=== PATIENT | female | born 1980 | race Hispanic/Latino ===

== ENCOUNTER 2016-09-27 01:13 | Inpatient (IN) | payer OTHER ==
[2016-09-27] MEDS ORDERED: ZOFRAN ONE (02:09)
[2016-09-27] MEDS ORDERED: NACL 0.9% 1000 ML 1,000 ML ONE (02:09)
[2016-09-27 02:14] LABS: Basophils % (Auto) 0.4 % (0.0-1.8); Eosinophils % (Auto) 0.7 % (0.0-4.3); Hematocrit 44.2 % (30.3-42.9); Hemoglobin 14.8 gm/dl (10.1-14.3); Mean Corpuscular HGB Conc 34 % (30-34); Mean Corpuscular Hemoglobin 33 pg (28-32); Mean Corpuscular Volume 99 fl (79-97); Platelet Count 342 K/mm3 (140-440); Red Blood Count 4.46 M/mm3 (3.65-5.03); White Blood Count 8.8 K/mm3 (4.5-11.0)
[2016-09-27 02:23] LABS: BUN/Creatinine Ratio 15.45; Calcium 8.5 mg/dL (8.4-10.2); Potassium 3.8 mmol/L (3.6-5.0)
[2016-09-27] MEDS ORDERED: D50W (25GM) IV PRN (02:44)
[2016-09-27] MEDS ORDERED: NACL 0.9% 1000 ML 1,000 ML IV ONE (02:44)
--- NOTE | 2016-09-27 02:57 | Emergency Department Report ---
ED General Adult HPI - General Chief complaint: Hyperglycemia Stated complaint: N/V,ELEVATED BLOOD SUGAR Time Seen by Provider: 09/27/16 02:17 Source: patient, EMS Mode of arrival: Stretcher Limitations: No Limitations - History of Present Illness Initial comments: 35-year-old female presents to the emergency department via EMS complaining of nausea and vomiting. Patient reports vomiting for the past 2 days. She states her blood sugar has been high. She reports soreness in her abdomen secondary to vomiting. There has been no diarrhea. She denies seeing any blood. There has been no fever. Patient states she has never been formally diagnosed with diabetes. She has never been prescribed any medication for diabetes, although she has been using her recently father's Lantus and NovoLog. There are no other complaints. -: Gradual, days(s) (2) Location: abdomen Radiation: non-radiation Severity scale (0 -10): 3 Quality: aching Consistency: constant Improves with: none Worsens with: none Associated Symptoms: nausea/vomiting Treatments Prior to Arrival: none - Related Data Home Medications Medication Instructions Recorded Confirmed Last Taken Insulin Glargine [Lantus VIAL] 15 units SQ QHS 02/07/16 02/07/16 Unknown NovoLOG Mix 70/30 VIAL 5 units SQ TID 02/07/16 02/07/16 Unknown Allergies Allergy/AdvReac Type Severity Reaction Status Date / Time No Known Allergies Allergy Unverified 02/07/16 08:09 ED Review of Systems ROS: Stated complaint: N/V,ELEVATED BLOOD SUGAR Other details as noted in HPI Comment: All other systems reviewed and negative Gastrointestinal: abdominal pain, nausea, vomiting ED Past Medical Hx - Past Medical History Previous Medical History?: Yes Hx Diabetes: Yes (no formal diagnosis) Additional medical history: Gangrene on finger on left hand - Surgical History Past Surgical History?: Yes Additional Surgical History: Neck surgery - Family History Family history: diabetes - Social History Smoking Status: Former Smoker Substance Use Type: None - Medications Home Medications: Home Medications Medication Instructions Recorded Confirmed Last Taken Type Insulin Glargine [Lantus VIAL] 15 units SQ QHS 02/07/16 02/07/16 Unknown History NovoLOG Mix 70/30 VIAL 5 units SQ TID 02/07/16 02/07/16 Unknown History ED Physical Exam - General Limitations: No Limitations General appearance: alert, in no apparent distress - Head Head exam: Present: atraumatic, normocephalic - Eye Eye exam: Present: normal appearance, PERRL, EOMI - ENT ENT exam: Present: normal exam, normal orophraynx, mucous membranes moist - Neck Neck exam: Present: normal inspection, full ROM. Absent: tenderness - Respiratory Respiratory exam: Present: normal lung sounds bilaterally. Absent: respiratory distress - Cardiovascular Cardiovascular Exam: Present: normal rhythm, tachycardia, normal heart sounds - GI/Abdominal GI/Abdominal exam: Present: soft, tenderness (mild diffuse tenderness to palpation), normal bowel sounds. Absent: distended, guarding, rebound - Extremities Exam Extremities exam: Present: normal inspection, full ROM. Absent: tenderness - Back Exam Back exam: Present: normal inspection, full ROM. Absent: tenderness - Neurological Exam Neurological exam: Present: alert, oriented X3. Absent: motor sensory deficit - Skin Skin exam: Present: warm, dry, intact ED Course Vital Signs 09/27/16 01:32 Temperature 98.8 F Pulse Rate 127 H Respiratory 20 Rate Blood Pressure 108/61 [Right] O2 Sat by Pulse 99 Oximetry ED Medical Decision Making - Lab Data Result diagrams: 09/27/16 01:40 09/27/16 01:40 - EKG Data -: EKG Interpreted by Me EKG shows normal: sinus rhythm, axis, intervals, QRS complexes, ST-T waves Rate: tachycardia - EKG Data When compared to previous EKG there are: previous EKG unavailable Interpretation: normal EKG - Medical Decision Making Lab results reviewed and discussed with the patient. Patient is being given additional IV fluids. Patient is being started on insulin drip. Hospitalist is to admit the patient. - Differential Diagnosis DKA, dehydration, hyperglycemia Critical care attestation.: If time is entered above; I have spent that time in minutes in the direct care of this critically ill patient, excluding procedure time. ED Disposition Clinical Impression: DKA (diabetic ketoacidoses) Qualifiers: Diabetes mellitus type: type 2 Diabetes mellitus complication detail: without coma Qualified Code(s): E13.10 - Other specified diabetes mellitus with ketoacidosis without coma Disposition: OP ADMITTED IP TO THIS HOSP Is pt being admited?: Yes Condition: Stable Instructions: Diabetic Ketoacidosis (ED) Referrals: PRIMARY CARE, [Primary Care Provider] - 3-5 Days Time of Disposition: 02:57
[2016-09-27] MEDS ORDERED: D5W/0.45% NACL/KCL 20 MEQ 20 MEQ/1,000 ML BAG IV SCH (03:00)
[2016-09-27] MEDS ORDERED: MILK OF MAGNESIA PO PRN (03:17)
[2016-09-27] MEDS ORDERED: SODIUM BICARBONATE IV ONE ×6 (03:17→14:00)
[2016-09-27] MEDS ORDERED: TYLENOL PO PRN (03:17)
[2016-09-27] MEDS ORDERED: SODIUM CHLORIDE FLUSH SYRINGE 10 ML IV PRN (03:17)
[2016-09-27] MEDS ORDERED: DULCOLAX PR PRN (03:17)
--- NOTE | 2016-09-27 03:22 | History and Physical Report ---
History of Present Illness Date of examination: 09/27/16 History of present illness: 35-year-old woman with a history of diabetes comes emergency room with complaints of nausea vomiting. She stated that over the last 2 days she has been having difficulty controlling her sugars at home despite taking her insulin. She also complaining of chest pain in the epigastric area which she states feels like 100 pound sedated chest, intermittent in nature lasting for 30 minutes, no radiation, worse when lying down, better when sitting up. She admits to shortness of breath, diaphoresis, no palpitation Patient denies cough, abdominal pain, hematochezia, dysuria, frequency, focal weakness, dysarthria, fever chills, polydipsia polyuria, hot or cold intolerance , easy bruisability, or rash or bleeding from mucosal membrane, rhinorrhea, epistaxis, earache, tinnitus, blurry vision, eye discharge, anxiety, depression. Other review of systems negative PAST SURGICAL HISTORY: None SOCIAL HISTORY:Quit tobacco use, admits to marijuana, no alcohol FAMILY HISTORY: Hypertension Medications and Allergies Allergies Allergy/AdvReac Type Severity Reaction Status Date / Time No Known Allergies Allergy Unverified 02/07/16 08:09 Home Medications Medication Instructions Recorded Confirmed Last Taken Type Insulin Glargine [Lantus VIAL] 15 units SQ QHS 02/07/16 02/07/16 Unknown History NovoLOG Mix 70/30 VIAL 5 units SQ TID 02/07/16 02/07/16 Unknown History Active Meds: Active Medications Dextrose (D50w (25gm)) 0 ml IV PRN PRN PRN Reason: Hypoglycemia Potassium Chloride/Dextrose/Sod Cl (D5w/0.45% Nacl/Kcl 20 Meq) 20 meq in 1,000 mls @ 125 mls/hr IV DIRECT MAUDE Sodium Chloride (Nacl 0.9% 1000 Ml) 1,000 mls @ 999 mls/hr IV BOLUS ONE Stop: 09/27/16 03:44 Insulin Human Regular 100 (units/ Sodium Chloride) 100 mls @ 1 mls/hr IV TITR MAUDE; 1 UNITS/HR PRN Reason: Protocol Sodium Bicarbonate (Sodium Bicarbonate) 100 meq IV ONCE ONE Stop: 09/27/16 03:18 Exam - Physical Exam Narrative exam: Gen. appearance: Patient lying in bed, no apparent distress HEENT: Normocephalic, atraumatic, pupils equally round and reactive to light, extraocular movement intact, and no sclericterus,. No JVD or thyromegaly or nodule,neck supple, no carotid bruit ,mucous membranes dry, no exudate or erythema Heart: S1, S2, regular rate and rhythm Lungs: Clear to auscultation bilaterally, breathing comfortable Abdomen: Positive bowel sounds, nontender, nondistended, no organomegaly Extremity: No edema, cyanosis, clubbing Skin: No rash, nodules, warm, dry Neuro: Oriented 3, cranial nerves II-12 intact, speech is fluent, motor and sensory intact - Constitutional Vitals: Temp Pulse Resp BP Pulse Ox 98.8 F 127 H 20 108/61 99 09/27/16 01:32 09/27/16 01:32 09/27/16 01:32 09/27/16 01:32 09/27/16 01:32 Results - Labs CBC & Chem 7: 09/27/16 01:40 09/28/16 02:54 Labs: Abnormal lab results 09/27/16 09/27/16 09/27/16 Range/Units 01:40 01:40 01:40 Hgb 14.8 H (10.1-14.3) gm/dl Hct 44.2 H (30.3-42.9) % MCV 99 H (79-97) fl MCH 33 H (28-32) pg Lymph % (Auto) 10.6 L (13.4-35.0) % Lymph # 0.9 L (1.2-5.4) K/mm3 Seg Neutrophils % 83.8 H (40.0-70.0) % VBG pH 7.244 L (7.320-7.420) Sodium 129 L (137-145) mmol/L Chloride 91.0 L (98-107) mmol/L Carbon Dioxide 5 L* (22-30) mmol/L Glucose 348 H (65-100) mg/dL Assessment and Plan DKA Severe metabolic acidosis Chest pain, rule out ACS Admit to medicine Start insulin drip, IV fluid Minder serial chemistry, blood sugar Check hemoglobin A1c, cardiac enzymes, lipid profile and obtain a stress test Consult critical care, give bicarbonate now start DVT prophylaxis, IV morphine
[2016-09-27] MEDS: NovoLIN R 100 UNITS in NACL 0.9% 99 ML IV SCH ×12 (03:30→19:00)
[2016-09-27] MEDS ORDERED: NACL 0.9% 1000 ML 1,000 ML IV SCH (04:00)
--- NOTE | 2016-09-27 04:52 | Admit Criteria Form ---
Admission Criteria Documentation: DIABETES Clinical Indications for Admission to Inpatient Care (Place 'X' for any and all applicable criteria): Admission is indicated by presence of ALL (if I & II) or ANY ONE (if III or IV) of the following (1)(2)(3)(4): [X ]I. Diabetes is uncontrolled as indicated by ANY ONE of the following: [ X]a) Diabetic ketoacidosis as indicated by ALL of the following (8): [X ]i) Hyperglycemia (eg, plasma glucose greater than 200 mg /dL (11.1 mmol/L)) [ X]ii) Acidosis (eg, arterial pH less than 7.30, serum bicarbonate level less than 15 mEq/L (mmol/L)) [ X]iii) Moderate ketonuria or ketonemia [ ]b) Hyperglycemic hyperosmolar state as indicated by ALL of the following(9)(10): [ ]i) Neurologic dysfunction (eg, stupor, coma, hemiparesis , seizure)(13) [ ]ii) Plasma glucose greater than 600 mg/dL (33.3 mmol/L) [ ]iii) Serum osmolality greater than 320 mOsm/kg (mmol/kg) [ ]c) Severe signs or symptoms secondary to hyperglycemia indicated by ANY ONE of the following: [ ]i) Altered mental status(10) [ ]ii) Significant hypovolemia or dehydration [ ]iii) Intractable nausea or vomiting [ ]iv) Unexplained fever or severe infection [ ]v) Severe electrolyte abnormality (eg, hypokalemia, hyperkalemia, hypernatremia) [ ]II. Management at other levels of care (Also use Diabetes: Observation Care as appropriate) is not feasible because of ANY ONE of the following: [ ]a) Condition was not adequately corrected with treatment at other levels of care. [ ]b) Treatment at other levels of care is not appropriate because of condition severity (eg, hyperosmolar coma). [ ]III. Contraindications and/or Inappropriate clinical situations for Observational Care in patients with Diabetes, when ANY ONE of the following is required: [ ]a) Patient require specific diagnostic workup or therapeutic intervention 22 [ ]b) Patient with abnormal vital signs or altered mental status 23 [ ]IV. General contraindications and/or Inappropriate clinical situations for Observational Care in patients with Diabetes, when ANY ONE of the following is required: [ ]a) Prediction of prolongation of LOS based on ANY ONE of the following may be considered as a contraindication for observational care 2, 3, 4, 5, 6, 7, 8, 9, 10, 11 [ ]i) Age > 65 yrs. [ ]ii) Patient arriving by ambulance [ ]iii) Patient with high acuity [ ]iv) Patient requiring vital sign monitoring [ ]v) Patient on IV medication [ ]b) Systolic blood pressures 180mmHg 3,12 [ ]c) Patient with altered mental status including delirium and other alteration of consciousness, (3) [ ]d) Patient whose discharge disposition will be to a care home home or rehabilitation home should not be managed in Emergency Department Observation Unit. CMS rule requires 3 days hospital stay before such placement.3,13 [ ]e) Patient with failure to thrive due to broad array of etiologies 3,16,17 [ ]f) Inability to ambulate 3,14 Extended stay beyond goal length of stay may be needed for(3)(20): [ ]a) Treatment of precipitating causes [ ]b) Development of hypoglycemia [ ]c) Complications of treatment [ ]d) Complications of decompensated diabetes (eg, acute gastric dilatation, persistent metabolic or neurologic derangement) [ ]e) Active Comorbidities [ ]f) Older patients( 65 years or older) The original [employer] content created by [employer] has been revised. The portions of the content which have been revised are identified through the use of italic text or in bold,and [facility] has neither reviewed nor approved the modified material. All other unmodified content is copyright [employer]. Please see references footnoted in the original [facility] edition 2016 Admission Criteria Met: Yes
[2016-09-27 05:12] LABS: Bilirubin,Urine Negative (Negative); Blood,Urine SM (Negative); Ketones,Urine Trace mg/dL (Negative)
[2016-09-27 05:13] LABS: Leukocyte Esterase,Urine Negative (Negative); Nitrite,Urine Negative (Negative); Urobilinogen,Urine < 2.0 mg/dL (<2.0)
[2016-09-27 05:14] LABS: Bacteria,Urine 1+ /HPF (Negative); Granular Casts,Urine 5 /LPF
[2016-09-27] MEDS: MORPHINE IV PRN ×3 (05:32→20:25)
[2016-09-27] MEDS: ZOFRAN IV PRN ×3 (05:35→05:38)
[2016-09-27 06:26] LABS: BUN/Creatinine Ratio 16.66; Blood Urea Nitrogen 15 mg/dL (7-17); Calcium 8.2 mg/dL (8.4-10.2); Carbon Dioxide 16 mmol/L (22-30); Chloride 94.5 mmol/L (98-107); Glucose 129 mg/dL (65-100); Phosphorous 1.7 mg/dL (2.5-4.5); Potassium 4.4 mmol/L (3.6-5.0); Sodium 137 mmol/L (137-145)
[2016-09-27 06:28] LABS: Cholesterol 275 mg/dL (50-199); HDL Cholesterol 39 mg/dL (40-59); LDL Cholesterol,Direct TNR mg/dL (50-130); Triglycerides 552 mg/dL (2-149)
[2016-09-27 06:37] LABS: Anion Gap 31 mmol/L
[2016-09-27] MEDS ORDERED: LEXISCAN IV ONE ×2 (07:58→08:07)
--- NOTE | 2016-09-27 08:31 | Event Note ---
Date: 09/20/16 Patient admitted with diabetic ketoacidosis. She was seen and examined. Cont Insulin drip, iv fluids. Anion gap still high-31.
[2016-09-27] MEDS ORDERED: LOVENOX SUB-Q SCH (10:00)
[2016-09-27 10:12] LABS: Anion Gap 31 mmol/L; Blood Urea Nitrogen 12 mg/dL (7-17); Calcium 7.8 mg/dL (8.4-10.2); Carbon Dioxide 13 mmol/L (22-30); Glucose 199 mg/dL (65-100); Potassium 3.5 mmol/L (3.6-5.0); Sodium 136 mmol/L (137-145)
[2016-09-27] MEDS: LOVENOX SUB-Q SCH (10:12)
[2016-09-27 10:18] LABS: Creatine Kinase MB 1.5 ng/mL (0.0-4.0)
[2016-09-27 10:20] LABS: Creatine Kinase 32 units/L (30-135)
[2016-09-27] MEDS: D5/0.45NS 1,000 ML IV SCH ×2 (12:00→18:24)
[2016-09-27 14:21] LABS: Creatine Kinase MB 1.3 ng/mL (0.0-4.0)
[2016-09-27 14:22] LABS: Creatine Kinase 27 units/L (30-135)
[2016-09-27 18:32] LABS: Urine Drugs of Abuse Note Disclamer
[2016-09-27 18:34] LABS: Creatine Kinase MB 1.3 ng/mL (0.0-4.0)
[2016-09-27] MEDS: D5W/0.45% NACL/KCL 20 MEQ 20 MEQ/1,000 ML BAG IV SCH (19:01)
[2016-09-27 22:22] LABS: Creatine Kinase MB 1.3 ng/mL (0.0-4.0)
[2016-09-27 22:34] LABS: BUN/Creatinine Ratio 11.42; Blood Urea Nitrogen 8 mg/dL (7-17); Calcium 7.7 mg/dL (8.4-10.2); Carbon Dioxide 23 mmol/L (22-30); Chloride 96.5 mmol/L (98-107); Glucose 113 mg/dL (65-100); Potassium 3.4 mmol/L (3.6-5.0); Sodium 135 mmol/L (137-145)
[2016-09-27 22:50] LABS: Anion Gap 19 mmol/L
[2016-09-28] MEDS: D5W/0.45% NACL/KCL 20 MEQ 20 MEQ/1,000 ML BAG IV SCH (02:45)
[2016-09-28 04:34] LABS: Anion Gap 21 mmol/L; BUN/Creatinine Ratio 11.66; Blood Urea Nitrogen 7 mg/dL (7-17); Calcium 7.5 mg/dL (8.4-10.2); Carbon Dioxide 19 mmol/L (22-30); Chloride 98.6 mmol/L (98-107); Glucose 163 mg/dL (65-100); Potassium 3.1 mmol/L (3.6-5.0); Sodium 135 mmol/L (137-145)
[2016-09-28] MEDS: NovoLIN R 100 UNITS in NACL 0.9% 99 ML IV SCH ×2 (08:07→09:07)
[2016-09-28 09:17] LABS: Anion Gap 18 mmol/L; Blood Urea Nitrogen 5 mg/dL (7-17); Calcium 7.8 mg/dL (8.4-10.2); Carbon Dioxide 22 mmol/L (22-30); Chloride 101.4 mmol/L (98-107); Glucose 121 mg/dL (65-100); Potassium 3.3 mmol/L (3.6-5.0); Sodium 138 mmol/L (137-145)
[2016-09-28] MEDS ORDERED: NACL 0.9% 1000 ML 1,000 ML with KCL 20 MEQ IV SCH (11:00)
[2016-09-28] MEDS ORDERED: LEXISCAN IV ONE ×2 (11:23→11:36)
--- NOTE | 2016-09-28 13:23 | Consultation ---
History of Present Illness Consult date: 09/28/16 Requesting physician: AUSTIN LAL Reason for consult: other (DKA) History of present illness: PULMONARY/CCM CONSULT NOTE (Full dictation # [id number]) Please see dictated notes for full details Medications and Allergies Allergies Allergy/AdvReac Type Severity Reaction Status Date / Time No Known Allergies Allergy Unverified 02/07/16 08:09 Home Medications Medication Instructions Recorded Confirmed Last Taken Type Insulin Glargine [Lantus VIAL] 15 units SQ QHS 02/07/16 02/07/16 Unknown History NovoLOG Mix 70/30 VIAL 5 units SQ TID 02/07/16 02/07/16 Unknown History Active Meds: Active Medications Acetaminophen (Tylenol) 650 mg PO Q4H PRN PRN Reason: Pain MILD(1-3)/Fever >100.5/SCHUSTER Bisacodyl (Dulcolax) 10 mg CA QDAY PRN PRN Reason: Constipation unrelieved by MOM Dextrose (D50w (25gm)) 0 ml IV PRN PRN PRN Reason: Hypoglycemia Enoxaparin Sodium (Lovenox) 40 mg SUB-Q QDAY@1000 MAUDE Last Admin: 09/27/16 10:12 Dose: 40 mg Insulin Human Regular 100 (units/ Sodium Chloride) 100 mls @ 1 mls/hr IV TITR MAUDE; 1 UNITS/HR PRN Reason: Protocol Last Admin: 09/28/16 09:07 Dose: 1 units/hr, 1 mls/hr Sodium Chloride (Nacl 0.9% 1000 Ml) 1,000 mls @ 150 mls/hr IV DIRECT MAUDE Potassium Chloride 20 meq/ (Sodium Chloride) 1,010 mls @ 75 mls/hr IV DIRECT MAUDE Magnesium Hydroxide (Milk Of Magnesia) 30 ml PO Q4H PRN PRN Reason: Constipation Morphine Sulfate (Morphine) 2 mg IV Q4H PRN PRN Reason: Pain, Moderate (4-6) Last Admin: 09/27/16 20:25 Dose: 2 mg Ondansetron HCl (Zofran) 4 mg IV Q8H PRN PRN Reason: N/V unrelieved by Reglan Last Admin: 09/27/16 05:38 Dose: 4 mg Sodium Chloride (Sodium Chloride Flush Syringe 10 Ml) 10 ml IV PRN PRN PRN Reason: LINE FLUSH Physical Examination Vital signs: Vital Signs Pulse Resp 115 H 16 09/27/16 01:24 09/27/16 01:24 Results - Laboratory Findings CBC and BMP: 09/27/16 01:40 09/28/16 08:25 Abnormal lab findings: Abnormal Labs 09/27/16 09/27/16 09/27/16 03:30 03:38 05:00 Sodium Potassium Chloride Carbon Dioxide BUN Creatinine Glucose POC Glucose 167 H 117 H Hemoglobin A1c Calcium Phosphorus Total Creatine Kinase CK-MB (CK-2) Rel Index Triglycerides Cholesterol HDL Cholesterol U Epithel Cells (Auto) 19.0 H 09/27/16 09/27/16 09/27/16 05:47 05:47 05:47 Sodium Potassium Chloride 94.5 L Carbon Dioxide 16 L D BUN Creatinine Glucose 129 H POC Glucose Hemoglobin A1c Calcium 8.2 L Phosphorus 1.70 L Total Creatine Kinase CK-MB (CK-2) Rel Index Triglycerides 552 H Cholesterol 275 H HDL Cholesterol 39 L U Epithel Cells (Auto) 09/27/16 09/27/16 09/27/16 05:47 05:53 07:52 Sodium Potassium Chloride Carbon Dioxide BUN Creatinine Glucose POC Glucose 115 H 238 H Hemoglobin A1c 12.1 H Calcium Phosphorus Total Creatine Kinase CK-MB (CK-2) Rel Index Triglycerides Cholesterol HDL Cholesterol U Epithel Cells (Auto) 09/27/16 09/27/16 09/27/16 08:48 09:05 09:05 Sodium 136 L Potassium 3.5 L D Chloride 96.0 L Carbon Dioxide 13 L BUN Creatinine Glucose 199 H POC Glucose 216 H Hemoglobin A1c Calcium 7.8 L Phosphorus Total Creatine Kinase CK-MB (CK-2) Rel Index 4.6 H Triglycerides Cholesterol HDL Cholesterol U Epithel Cells (Auto) 09/27/16 09/27/16 09/27/16 10:01 10:59 12:04 Sodium Potassium Chloride Carbon Dioxide BUN Creatinine Glucose POC Glucose 106 H 113 H 143 H Hemoglobin A1c Calcium Phosphorus Total Creatine Kinase CK-MB (CK-2) Rel Index Triglycerides Cholesterol HDL Cholesterol U Epithel Cells (Auto) 09/27/16 09/27/16 09/27/16 13:06 13:22 14:21 Sodium Potassium Chloride Carbon Dioxide BUN Creatinine Glucose POC Glucose 113 H 132 H Hemoglobin A1c Calcium Phosphorus Total Creatine Kinase 27 L CK-MB (CK-2) Rel Index 4.8 H Triglycerides Cholesterol HDL Cholesterol U Epithel Cells (Auto) 09/27/16 09/27/16 09/27/16 15:27 16:40 17:15 Sodium Potassium Chloride Carbon Dioxide BUN Creatinine Glucose POC Glucose 207 H 175 H Hemoglobin A1c Calcium Phosphorus Total Creatine Kinase CK-MB (CK-2) Rel Index 4.1 H Triglycerides Cholesterol HDL Cholesterol U Epithel Cells (Auto) 09/27/16 09/27/16 09/27/16 17:27 19:08 20:02 Sodium Potassium Chloride Carbon Dioxide BUN Creatinine Glucose POC Glucose 116 H 172 H 167 H Hemoglobin A1c Calcium Phosphorus Total Creatine Kinase CK-MB (CK-2) Rel Index Triglycerides Cholesterol HDL Cholesterol U Epithel Cells (Auto) 09/27/16 09/27/16 09/27/16 21:06 21:42 22:00 Sodium 135 L Potassium 3.4 L Chloride 96.5 L Carbon Dioxide BUN Creatinine Glucose 113 H POC Glucose 106 H Hemoglobin A1c Calcium 7.7 L Phosphorus Total Creatine Kinase 28 L CK-MB (CK-2) Rel Index 4.6 H Triglycerides Cholesterol HDL Cholesterol U Epithel Cells (Auto) 09/27/16 09/27/16 09/27/16 22:17 22:48 23:30 Sodium Potassium Chloride Carbon Dioxide BUN Creatinine Glucose POC Glucose 160 H 132 H 157 H Hemoglobin A1c Calcium Phosphorus Total Creatine Kinase CK-MB (CK-2) Rel Index Triglycerides Cholesterol HDL Cholesterol U Epithel Cells (Auto) 09/28/16 09/28/16 09/28/16 02:32 02:54 03:54 Sodium 135 L Potassium 3.1 L Chloride Carbon Dioxide 19 L BUN Creatinine 0.6 L Glucose 163 H POC Glucose 171 H 154 H Hemoglobin A1c Calcium 7.5 L Phosphorus Total Creatine Kinase CK-MB (CK-2) Rel Index Triglycerides Cholesterol HDL Cholesterol U Epithel Cells (Auto) 09/28/16 09/28/16 09/28/16 04:59 05:20 06:47 Sodium Potassium Chloride Carbon Dioxide BUN Creatinine Glucose POC Glucose 122 H 106 H 137 H Hemoglobin A1c Calcium Phosphorus Total Creatine Kinase CK-MB (CK-2) Rel Index Triglycerides Cholesterol HDL Cholesterol U Epithel Cells (Auto) 09/28/16 09/28/16 09/28/16 08:01 08:25 09:03 Sodium Potassium 3.3 L Chloride Carbon Dioxide BUN 5 L Creatinine 0.5 L Glucose 121 H POC Glucose 119 H 122 H Hemoglobin A1c Calcium 7.8 L Phosphorus Total Creatine Kinase CK-MB (CK-2) Rel Index Triglycerides Cholesterol HDL Cholesterol U Epithel Cells (Auto)
[2016-09-28] MEDS: LOVENOX SUB-Q SCH (13:51)
--- NOTE | 2016-09-28 14:05 | Progress Note ---
Assessment and Plan Assessment and plan: DKA. Resolved. Patient will be transitioned to long-acting insulin this morning 15 units /30. We will resume home dose of long-acting insulin-- Lantus 15 units at bedtime. Sliding scale regular insulin and Accu-Cheks Diabetes mellitus type 1. As above. Chest pain. Stress thallium pending. History Interval history: Patient denies any chest pain currently. Hospitalist Physical - Constitutional Vitals: Temp Pulse Resp BP Pulse Ox 98 F 74 15 106/70 99 09/28/16 12:00 09/28/16 13:40 09/28/16 13:40 09/28/16 13:40 09/28/16 13:40 General appearance: Present: no acute distress, well-nourished - EENT Eyes: Present: PERRL, EOM intact ENT: hearing intact, clear oral mucosa, dentition normal - Neck Neck: Present: supple, normal ROM - Respiratory Respiratory effort: normal Respiratory: bilateral: CTA - Cardiovascular Rhythm: regular Heart Sounds: Present: S1 & S2. Absent: gallop, rub - Extremities Extremities: no ischemia, No edema, Full ROM - Abdominal General gastrointestinal: soft, non-tender, non-distended, normal bowel sounds - Integumentary Integumentary: Present: clear, warm, dry - Neurologic Neurologic: CNII-XII intact, moves all extremities Results - Labs CBC & Chem 7: 09/27/16 01:40 09/28/16 08:25 Labs: Laboratory Last Values WBC 8.8 K/mm3 (4.5-11.0) 09/27/16 01:40 RBC 4.46 M/mm3 (3.65-5.03) 09/27/16 01:40 Hgb 14.8 gm/dl (10.1-14.3) H 09/27/16 01:40 Hct 44.2 % (30.3-42.9) H 09/27/16 01:40 MCV 99 fl (79-97) H 09/27/16 01:40 MCH 33 pg (28-32) H 09/27/16 01:40 MCHC 34 % (30-34) 09/27/16 01:40 RDW 14.0 % (13.2-15.2) 09/27/16 01:40 Plt Count 342 K/mm3 (140-440) 09/27/16 01:40 Lymph % (Auto) 10.6 % (13.4-35.0) L 09/27/16 01:40 [place] % (Auto) 4.5 % (0.0-7.3) 09/27/16 01:40 Eos % (Auto) 0.7 % (0.0-4.3) 09/27/16 01:40 Baso % (Auto) 0.4 % (0.0-1.8) 09/27/16 01:40 Lymph # 0.9 K/mm3 (1.2-5.4) L 09/27/16 01:40 Howard # 0.4 K/mm3 (0.0-0.8) 09/27/16 01:40 Eos # 0.1 K/mm3 (0.0-0.4) 09/27/16 01:40 Baso # 0.0 K/mm3 (0.0-0.1) 09/27/16 01:40 Seg Neutrophils % 83.8 % (40.0-70.0) H 09/27/16 01:40 Seg Neutrophils # 7.4 K/mm3 (1.8-7.7) 09/27/16 01:40 VBG pH 7.244 (7.320-7.420) L 09/27/16 01:40 Sodium 138 mmol/L (137-145) 09/28/16 08:25 Potassium 3.3 mmol/L (3.6-5.0) L 09/28/16 08:25 Chloride 101.4 mmol/L (98-107) 09/28/16 08:25 Carbon Dioxide 22 mmol/L (22-30) 09/28/16 08:25 Anion Gap 18 mmol/L 09/28/16 08:25 BUN 5 mg/dL (7-17) L 09/28/16 08:25 Creatinine 0.5 mg/dL (0.7-1.2) L 09/28/16 08:25 Estimated GFR > 60 ml/min 09/28/16 08:25 BUN/Creatinine Ratio 10.00 % 09/28/16 08:25 Glucose 121 mg/dL (65-100) H 09/28/16 08:25 POC Glucose 122 (70-105) H 09/28/16 09:03 Hemoglobin A1c 12.1 % (4-6) H 09/27/16 05:47 Calcium 7.8 mg/dL (8.4-10.2) L 09/28/16 08:25 Phosphorus 1.70 mg/dL (2.5-4.5) L 09/27/16 05:47 Magnesium 2.00 mg/dL (1.7-2.3) 09/27/16 05:47 Total Creatine Kinase 28 units/L (30-135) L 09/27/16 21:42 CK-MB (CK-2) 1.3 ng/mL (0.0-4.0) 09/27/16 21:42 CK-MB (CK-2) Rel Index 4.6 (0-4) H 09/27/16 21:42 Troponin T < 0.010 ng/mL (0.00-0.029) 09/27/16 13:22 Triglycerides 552 mg/dL (2-149) H 09/27/16 05:47 Cholesterol 275 mg/dL (50-199) H 09/27/16 05:47 LDL Cholesterol Direct TNR 09/27/16 05:47 HDL Cholesterol 39 mg/dL (40-59) L 09/27/16 05:47 Cholesterol/HDL Ratio 7.05 % 09/27/16 05:47 HCG, Qual Negative (Negative) 09/27/16 01:40 Urine Color Yellow (Yellow) 09/27/16 03:30 Urine Turbidity Slightly cloudy (Clear) 09/27/16 03:30 Urine pH 5.0 (5.0-7.0) 09/27/16 03:30 Ur Specific [place] 1.022 (1.003-1.030) 09/27/16 03:30 Urine Protein 100 mg/dl mg/dL (Negative) 09/27/16 03:30 Urine Glucose (UA) >500 mg/dL (Negative) 09/27/16 03:30 Urine Ketones Trace mg/dL (Negative) 09/27/16 03:30 Urine Blood Sm (Negative) 09/27/16 03:30 Urine Nitrite Negative (Negative) 09/27/16 03:30 Urine Bilirubin Negative (Negative) 09/27/16 03:30 Urine Urobilinogen < 2.0 mg/dL (<2.0) 09/27/16 03:30 Ur Leukocyte Esterase Negative (Negative) 09/27/16 03:30 Urine WBC (Auto) 3.0 /HPF (0.0-6.0) 09/27/16 03:30 Urine RBC (Auto) 1.0 /HPF (0.0-6.0) 09/27/16 03:30 U Epithel Cells (Auto) 19.0 /HPF (0-13.0) H 09/27/16 03:30 Urine Bacteria (Auto) 1+ /HPF (Negative) 09/27/16 03:30 Granular Casts 5 /LPF 09/27/16 03:30 Urine Opiates Screen Presumptive positive 09/27/16 17:38 Urine Methadone Screen Presumptive negative 09/27/16 17:38 Ur Barbiturates Screen Presumptive negative 09/27/16 17:38 Ur Phencyclidine Scrn Presumptive negative 09/27/16 17:38 Ur Amphetamines Screen Presumptive negative 09/27/16 17:38 U Benzodiazepines Scrn Presumptive negative 09/27/16 17:38 Urine Cocaine Screen Presumptive negative 09/27/16 17:38 U Marijuana (THC) Screen Presumptive positive 09/27/16 17:38 Drugs of Abuse Note Disclamer 09/27/16 17:38
[2016-09-28] MEDS ORDERED: INSULIN ASPART SQ SCH (20:00)
[2016-09-28] MEDS ORDERED: INSULIN ASPART PROTAMINE SQ SCH (20:00)
[2016-09-28] MEDS ORDERED: LEVEMIR SUB-Q SCH (22:00)
[2016-09-28] MEDS ORDERED: NON-FORMULARY (Insulin Glargine 15 UNITS) SQ SCH (22:00)
[2016-09-29] MEDS: MORPHINE IV PRN (00:42)
--- NOTE | 2016-09-29 05:06 | Consultation ---
REQUESTING PHYSICIAN: Dr. Walton. REASON FOR CONSULTATION: Diabetic ketoacidosis, chest pain. COMPLAINT AND HISTORY OF PRESENT ILLNESS: The patient is a 35-year-old female with past medical history significant for a diagnosis of diabetes and she said there was made about a year ago who she is actually on insulin at home. She stated that she has been taking insulin. She takes 5 units of Humalog with each meal and 15 units of Lantus at night. In the preceding couple of days, she noticed increasing her blood sugars and she had tried everything to get them done successfully, came into the Emergency Room because she developed sorting chest pain, felt like it was a heavy weight on her chest. She had some nausea and/or radiation. It was worse when she laid down and improved to sitting up. She denies alcohol abuse. She did have shortness of breath. She was brought in and essentially found to be in DKA, but also with acute chest pain. When I stopped by to see her, she was resting peacefully in bed. She was having meal. Denied any more chest pain. Denied fevers or chills. I believe she had been seen by the Cardiology Department and was due to have a stress test done. She has about less than 10-pack year tobacco smoking history and states she quit smoking since the diagnosis. This really is as much of the history of presentation as I have. PAST MEDICAL HISTORY: Diabetes. She is obese. PAST SURGICAL HISTORY: Denies. MEDICATIONS: She was on at the time I stopped by to see her, according to the medication administration record included the following: Tylenol 650 mg p.o. q. 4 hours p.r.n. mild pain, Lovenox 40 mg subcutaneous daily, p.r.n. milk of magnesia, nonformulary medication 5 units subq t.i.d., morphine 2 mg IV q. 4 hours p.r.n. moderate pain, Zofran 4 mg IV q. 8 hours p.r.n. nausea and vomiting. ALLERGIES: No known drug allergies. DIET: Obese lady. Denies acute weight loss or gain preceding few weeks to months. FAMILY AND SOCIAL HISTORY: Lives in the community. Less than 10-pack year tobacco smoking history. Denies current alcohol, tobacco, or illicit drug use or abuse. There is a family history of hypertension. REVIEW OF SYSTEMS: No loss of consciousness. No new onset seizures. No new onset focal weakness. No gross hematochezia or melena. No gross hematuria or dysuria. No hematemesis. She had no hemoptysis. No palpitations, chest pain is better. Complete review of systems obtained. Pertinent positives and/or negatives as in body of history above, otherwise noncontributory. PHYSICAL EXAMINATION: VITAL SIGNS: At presentation, she was afebrile, temperature 98.8 Fahrenheit, pulse 115, respiratory rate was 16, blood pressure 108/61, oxygen sats 99%. She is currently on room air. HEAD, EYES, EARS, NOSE AND THROAT: Pupils are equal, round, about 4-5 mm, reactive to light. Extraocular muscle movements are intact. Grossly, there were no palpable lymph nodes in the supraclavicular or submandibular lymph node chains. Oropharynx is Mallampati #2 oropharynx, mild oropharyngeal pallor. LUNGS: Auscultation of both lung atkinson unremarkable. Lungs are clear bilaterally. HEART: Heart sounds 1 and 2 are heard. They were regular in rate and rhythm at time of my evaluation. ABDOMEN: Soft, full, bowel sounds are positive, nontender. EXTREMITIES: Without overt digital clubbing, cyanosis, or pedal edema. NEUROLOGIC: The exam was grossly nonfocal. LABORATORY DATA: From my review are as follows: White cell count 8800, hemoglobin 14.8, hematocrit 44.2, platelets 342. Venous blood gas showed a pH of 7.24. Serum sodium was 129, potassium 3.8, chloride 91, bicarbonate was 5, BUN 17, creatinine 1.1, anion gap 37, glucose 348. Hemoglobin A1c was 12.1. Urinalysis was unremarkable, negative for nitrites and leukocyte esterase. Urine drug screen was presumptive positive for opiates and for marijuana and anion gap is down to 18 now. No microbiology studies. No chest x-ray. ASSESSMENT AND PLAN: We have a young lady with atypical chest pain. She is diabetic. Cardiology evaluation is ongoing appropriately. Her initial serum troponins within normal limits and all other cardiac enzymes also. Respiratory daly, she is doing fine. GI daly, she is tolerating oral meals. She will be placed on GI prophylaxis. Blood pressure is flying, insulin. She is now off IV insulin. Anion gap was closed. She can appropriately be transferred to the regular medical floor. Continued tobacco abstinence has been counseled. Flu and pneumonia vaccination will be per protocol. Thank you very much for the consult, Dr. Walton. We will follow along. We will make further recommendations as picture progresses/becomes clearer. JOB# [id number] SANDOR/GUY
[2016-09-29 09:34] VITALS: BP 96/59
[2016-09-29] MEDS: LOVENOX SUB-Q SCH (10:07)
--- NOTE | 2016-09-29 10:25 | Discharge Summary ---
Providers - Providers Date of Admission: 09/27/16 03:17 Date of discharge: 09/29/16 Attending physician: AKILA KENT 09/28/16 11:10 Consult to Physician [CONS] Urgent Consulting Provider: PHILIPPE MORROW Reason For Exam: crirical care management Place consult to:: cell phone text Notified:: yes Phone number called:: [phone] Was contact made?: Yes Time called:: 11:07 Primary care physician: [employer] ESTATE REPRESENTATIVE Hospitalization Reason for admission: cp Condition: Stable Hospital course: 35 show female presented through the emergency department with complaints of chest pain. Patient has a significant past medical history of diabetes mellitus. Patient reportedly had difficulty controlling his sugars at home despite taking her insulin. Patient was admitted with a diagnosis of DKA and started on insulin drip. Patient was transitioned later to her long acting Lantus insulin with much better control of her blood sugars. Patient underwent a stress thallium evaluation for chest pain which revealed preliminary tests were normal. Patient was later transferred to the floor after the insulin drip and stabilized. Patient was felt to have received maximal hospital benefit and will be discharged home. Dedicated discharge time 35 minutes. Disposition: DISCHARGED TO HOME OR SELFCARE Time spent for discharge: 35 - Discharge Diagnoses (1) DKA (diabetic ketoacidoses) Status: Acute Qualifiers: Diabetes mellitus type: type 2 Diabetes mellitus complication detail: without coma Qualified Code(s): E13.10 - Other specified diabetes mellitus with ketoacidosis without coma (2) Metabolic acidosis Status: Acute (3) Sepsis Status: Acute Qualifiers: Sepsis type: S Core Measure Documentation - Palliative Care Palliative Care/ Comfort Measures: Not Applicable - Core Measures Any of the following diagnoses?: none Exam - Constitutional Vitals: Temp Pulse Resp BP Pulse Ox 97.5 F L 75 18 96/59 99 09/29/16 08:00 09/29/16 08:00 09/29/16 08:00 09/29/16 08:00 09/29/16 08:00 General appearance: Present: no acute distress, well-nourished - EENT Eyes: Present: PERRL ENT: hearing intact, clear oral mucosa - Neck Neck: Present: supple, normal ROM - Respiratory Respiratory effort: normal Respiratory: bilateral: CTA - Cardiovascular Heart Sounds: Present: S1 & S2. Absent: rub, click - Extremities Extremities: pulses symmetrical, No edema Peripheral Pulses: within normal limits - Abdominal General gastrointestinal: Present: soft, non-tender, non-distended, normal bowel sounds Female genitourinary: Present: normal - Integumentary Integumentary: Present: clear, warm, dry - Musculoskeletal Musculoskeletal: gait normal, strength equal bilaterally - Psychiatric Psychiatric: appropriate mood/affect, intact judgment & insight - Neurologic Neurologic: CNII-XII intact, moves all extremities Plan Activity: no restrictions Weight Bearing Status: Full Weight Bearing Diet: diabetic Follow up with: PRIMARY CARE, [Primary Care Provider] - 3-5 Days Prescriptions: oxyCODONE /ACETAMINOPHEN [Percocet 5/325] 1 tab PO Q6HR PRN #12 tablet PRN Reason: Pain
== END 2016-09-29 15:30 | disposition home or self-care (01) | DRG 871 ==
LOC: ED 01:13 → CC1 03:17 → 3A 09-28 17:14
PROVIDERS: ADMIT Internal Medicine; ATTEND Hospitalist
PROC: 4A02XM4 Measurement of Cardiac Total Activity, External Approach (ICD-10-PCS; principal; 2016-09-27)
DX: A41.9 Sepsis, unspecified organism (principal); E13.10 Other specified diabetes mellitus with ketoacidosis without coma; R07.89 Other chest pain; E66.9 Obesity, unspecified; Z68.23 Body mass index [BMI] 23.0-23.9, adult; Z87.891 Personal history of nicotine dependence; Z82.49 Family history of ischemic heart disease and other diseases of the circulatory system; Z83.3 Family history of diabetes mellitus
CPT/HCPCS: 36415; 78452; 80048; 80061; 80307; 81001; 82550; 82553; 82805; 82962; 83036; 83735; 84100; 84484; 84703; 85025; 93005; 93010; 93017; 96361; 96374; 99406; A9502; J1650; J1815; J1818; J2270; J2405; J2785; J3480; J7030

== ENCOUNTER 2017-07-03 07:08 | Inpatient (IN) | payer OTHER ==
[2017-07-03] MEDS ORDERED: ASPIRIN PO ONE (07:37)
[2017-07-03] MEDS ORDERED: ZOFRAN ONE (07:44)
[2017-07-03] MEDS ORDERED: NACL 0.9% 1000 ML 1,000 ML ONE ×2 (07:44→09:50)
[2017-07-03] MEDS ORDERED: ZOFRAN IV ONE ×2 (08:02→08:37)
[2017-07-03] MEDS ORDERED: NACL 0.9% 1000 ML 1,000 ML IV ONE ×3 (08:02→08:54)
[2017-07-03 08:05] LABS: Basophils # (Auto) 0.1 K/mm3 (0.0-0.1); Basophils % (Auto) 0.4 % (0.0-1.8); Eosinophils % (Auto) 0.1 % (0.0-4.3); Hematocrit 44.8 % (30.3-42.9); Hemoglobin 14.2 gm/dl (10.1-14.3); Lymphocytes % (Auto) 7.1 % (13.4-35.0); Mean Corpuscular HGB Conc 32 % (30-34); Mean Corpuscular Hemoglobin 32 pg (28-32); Mean Corpuscular Volume 101 fl (79-97); Monocytes # (Auto) 0.5 K/mm3 (0.0-0.8); Monocytes % (Auto) 3.8 % (0.0-7.3); Platelet Count 383 K/mm3 (140-440); Red Blood Count 4.43 M/mm3 (3.65-5.03); Red Cell Distribution Width 13.1 % (13.2-15.2)
[2017-07-03 08:19] LABS: Alanine Aminotransferase 8 units/L (7-56); Albumin 4.3 g/dL (3.9-5); BUN/Creatinine Ratio 21; Blood Urea Nitrogen 25 mg/dL (7-17); Calcium 8.5 mg/dL (8.4-10.2); Hemolysis Index 3; Lipase 109 units/L (13-60)
[2017-07-03] MEDS ORDERED: D50W (25GM) Syringe IV PRN (08:36)
[2017-07-03] MEDS ORDERED: BENADRYL IV ONE (08:37)
[2017-07-03] MEDS ORDERED: REGLAN IV ONE (08:37)
[2017-07-03] MEDS ORDERED: MORPHINE IV ONE (08:39)
--- NOTE | 2017-07-03 08:51 | Emergency Department Report ---
ED Abdominal Pain HPI - General Chief Complaint: Abdominal Pain Stated Complaint: PAIN Time Seen by Provider: 07/03/17 08:32 Source: patient, EMS, old records reviewed (negative stress tests 09/2016) Mode of arrival: Stretcher Limitations: No Limitations - History of Present Illness Initial Comments: 36 year old female with a past medical history of insulin-dependent diabetes and hypothyroidism presents to the hospital complaining of nausea, vomiting, abdominal pain and chest pain 3 days. Patient states she's been compliant with her daily at bedtime insulin with last dose last night. Her sugars have been running fine until her Accu-Chek here in the ED. History of DKA in the past. No complaint of fever, diarrhea, sick contacts, or recent travel. Patient complains of generalized pain to her chest and abdomen like "I got beat up". Pain rated 6/10 in intensity. - Related Data Home Medications Medication Instructions Recorded Confirmed Last Taken Levothyroxine 07/03/17 Unknown Previous Rx's Medication Instructions Recorded Last Taken Type Insulin Detemir [Levemir] 15 units SUB-Q QHS units 09/29/16 Unknown Rx Allergies Allergy/AdvReac Type Severity Reaction Status Date / Time No Known Allergies Allergy Unverified 07/03/17 07:34 ED Review of Systems ROS: Stated complaint: PAIN Other details as noted in HPI Comment: All other systems reviewed and negative Other: Constitutional: No fevers chills Eyes: No eye pain visual changes ENT: No ear pain or throat pain Neck: Denies pain Respiratory: Denies cough wheezing shortness of breath Cardiovascular: Denies palpitations, syncope GI: As per HPI : Denies dysuria Musculoskeletal: Denies back pain Skin: Denies rash, lesions, erythema Neurologic: Denies headache, numbness, weakness Psychiatric: Denies suicidal ideation, hallucinations = ED Past Medical Hx - Past Medical History Previous Medical History?: Yes Hx Congestive Heart Failure: No Hx Diabetes: Yes (no formal diagnosis) Hx Asthma: No Hx COPD: No Hx HIV: No Additional medical history: Gangrene on finger on left hand. Hypothyroidism - Surgical History Past Surgical History?: Yes Additional Surgical History: Neck surgery - Social History Smoking Status: Never Smoker Substance Use Type: None - Medications Home Medications: Home Medications Medication Instructions Recorded Confirmed Last Taken Type Insulin Detemir [Levemir] 15 units SUB-Q QHS units 09/29/16 07/03/17 Unknown Rx Levothyroxine 07/03/17 Unknown History ED Physical Exam - General Limitations: No Limitations - Other Other exam information: General: No limitations Head exam: Atraumatic, normocephalic Eyes exam: Pupils equal reactive to light ENT: Dry mucous membranes Neck exam: Normal inspection, full range of motion Respiratory exam: Clear to auscultation bilateral, no wheezes, rales, crackles Cardiovascular: Tachycardic regular rhythm Abdomen: Soft, nondistended, left upper quadrant and left lower quadrant tenderness. All bowel sounds. No rebound or guard Extremity: Full range of motion normal inspection no deformity Back: Normal Inspection, full range of motion, no tenderness Neurologic: Alert, oriented x3, cranial nerves intact, no motor or sensory deficit Psychiatric: normal affect, normal mood Skin: Warm, dry, intact ED Course Vital Signs 07/03/17 07/03/17 07/03/17 07:20 07:30 07:31 Temperature 98 F Pulse Rate 127 H 126 H Respiratory 16 23 Rate Blood Pressure 121/75 121/75 O2 Sat by Pulse 99 99 99 Oximetry 07/03/17 07/03/17 08:00 08:31 Temperature Pulse Rate 116 H 125 H Respiratory 22 23 Rate Blood Pressure 121/73 121/73 O2 Sat by Pulse 100 100 Oximetry ED Medical Decision Making - Lab Data Result diagrams: 07/03/17 07:53 07/03/17 07:53 Lab Results 07/03/17 07/03/17 07/03/17 Range/Units 07:53 07:53 08:51 WBC 13.3 H (4.5-11.0) K/mm3 RBC 4.43 (3.65-5.03) M/mm3 Hgb 14.2 (10.1-14.3) gm/dl Hct 44.8 H (30.3-42.9) % MCV 101 H (79-97) fl MCH 32 (28-32) pg MCHC 32 (30-34) % RDW 13.1 L (13.2-15.2) % Plt Count 383 (140-440) K/mm3 Lymph % (Auto) 7.1 L (13.4-35.0) % [place] % (Auto) 3.8 (0.0-7.3) % Eos % (Auto) 0.1 (0.0-4.3) % Baso % (Auto) 0.4 (0.0-1.8) % Lymph # 1.0 L (1.2-5.4) K/mm3 [place] # 0.5 (0.0-0.8) K/mm3 Eos # 0.0 (0.0-0.4) K/mm3 Baso # 0.1 (0.0-0.1) K/mm3 Seg Neutrophils % 88.6 H (40.0-70.0) % Seg Neutrophils # 11.8 H (1.8-7.7) K/mm3 VBG pH (7.320-7.420) Sodium 129 L (137-145) mmol/L Potassium 5.3 H (3.6-5.0) mmol/L Chloride 84.0 L (98-107) mmol/L Carbon Dioxide 8 L* (22-30) mmol/L Anion Gap 42 mmol/L BUN 25 H (7-17) mg/dL Creatinine 1.2 (0.7-1.2) mg/dL Estimated GFR 51 ml/min BUN/Creatinine Ratio 21 % Glucose 621 H* (65-100) mg/dL Calcium 8.5 (8.4-10.2) mg/dL Phosphorus (2.5-4.5) mg/dL Magnesium (1.7-2.3) mg/dL Total Bilirubin 0.80 (0.1-1.2) mg/dL AST 10 (5-40) units/L ALT 8 (7-56) units/L Alkaline Phosphatase 53 (35-129) units/L Troponin T < 0.010 (0.00-0.029) ng/mL Total Protein 7.3 (6.3-8.2) g/dL Albumin 4.3 (3.9-5) g/dL Albumin/Globulin Ratio 1.4 % Lipase 109 H (13-60) units/L HCG, Qual Negative (Negative) Urine Color (Yellow) Urine Turbidity (Clear) Urine pH (5.0-7.0) Ur Specific [place] (1.003-1.030) Urine Protein (Negative) mg/dL Urine Glucose (UA) (Negative) mg/dL Urine Ketones (Negative) mg/dL Urine Blood (Negative) Urine Nitrite (Negative) Urine Bilirubin (Negative) Urine Urobilinogen (<2.0) mg/dL Ur Leukocyte Esterase (Negative) Urine WBC (Auto) (0.0-6.0) /HPF Urine RBC (Auto) (0.0-6.0) /HPF U Epithel Cells (Auto) (0-13.0) /HPF Urine Mucus /HPF 07/03/17 07/03/17 07/03/17 Range/Units 08:51 08:51 09:28 WBC (4.5-11.0) K/mm3 RBC (3.65-5.03) M/mm3 Hgb (10.1-14.3) gm/dl Hct (30.3-42.9) % MCV (79-97) fl MCH (28-32) pg MCHC (30-34) % RDW (13.2-15.2) % Plt Count (140-440) K/mm3 Lymph % (Auto) (13.4-35.0) % [place] % (Auto) (0.0-7.3) % Eos % (Auto) (0.0-4.3) % Baso % (Auto) (0.0-1.8) % Lymph # (1.2-5.4) K/mm3 [place] # (0.0-0.8) K/mm3 Eos # (0.0-0.4) K/mm3 Baso # (0.0-0.1) K/mm3 Seg Neutrophils % (40.0-70.0) % Seg Neutrophils # (1.8-7.7) K/mm3 VBG pH 7.064 L* (7.320-7.420) Sodium (137-145) mmol/L Potassium (3.6-5.0) mmol/L Chloride (98-107) mmol/L Carbon Dioxide (22-30) mmol/L Anion Gap mmol/L BUN (7-17) mg/dL Creatinine (0.7-1.2) mg/dL Estimated GFR ml/min BUN/Creatinine Ratio % Glucose (65-100) mg/dL Calcium (8.4-10.2) mg/dL Phosphorus 4.90 H (2.5-4.5) mg/dL Magnesium 1.70 (1.7-2.3) mg/dL Total Bilirubin (0.1-1.2) mg/dL AST (5-40) units/L ALT (7-56) units/L Alkaline Phosphatase (35-129) units/L Troponin T (0.00-0.029) ng/mL Total Protein (6.3-8.2) g/dL Albumin (3.9-5) g/dL Albumin/Globulin Ratio % Lipase (13-60) units/L HCG, Qual (Negative) Urine Color Straw (Yellow) Urine Turbidity Clear (Clear) Urine pH 5.0 (5.0-7.0) Ur Specific [place] 1.020 (1.003-1.030) Urine Protein <15 mg/dl (Negative) mg/dL Urine Glucose (UA) >=500 (Negative) mg/dL Urine Ketones 80 (Negative) mg/dL Urine Blood Neg (Negative) Urine Nitrite Neg (Negative) Urine Bilirubin Neg (Negative) Urine Urobilinogen < 2.0 (<2.0) mg/dL Ur Leukocyte Esterase Neg (Negative) Urine WBC (Auto) 2.0 (0.0-6.0) /HPF Urine RBC (Auto) 4.0 (0.0-6.0) /HPF U Epithel Cells (Auto) 4.0 (0-13.0) /HPF Urine Mucus Few /HPF - EKG Data -: EKG Interpreted by Me EKG shows normal: sinus rhythm, axis (qrs -1), QRS complexes (83), ST-T waves ( nonspecific t abnl) Rate: tachycardia (126) - EKG Data When compared to previous EKG there are: no significant change - Radiology Data Radiology results: report reviewed Rhythm by radiologist CT abdomen and pelvis IV contrast: Bilateral ovarian cysts no acute findings - Medical Decision Making DKA IV fluid bolus is initiated Insulin bolus with drip initiated + anion gap and acidosis Abdominal pain and vomiting Patient treated with Zofran, morphine, Reglan, and Benadryl negative CT without acute findings UA no signs of infection Chest pain Appears atypical and reproducible EKG and chest Initial troponin Negative stress test September 2016 - Differential Diagnosis gastritis, pancreatitis, viral syndrome, DKA, Critical Care Time: No Critical care attestation.: If time is entered above; I have spent that time in minutes in the direct care of this critically ill patient, excluding procedure time. ED Disposition Clinical Impression: DKA (diabetic ketoacidoses), Abdominal pain, Vomiting Disposition: DC- OP ADMIT IP TO THIS HOSP Is pt being admited?: Yes Condition: Stable Time of Disposition: 08:49 (Dr Dale/Jean-Claude/Hosp)
[2017-07-03] MEDS ORDERED: NovoLIN R 100 UNITS in NACL 0.9% 99 ML IV SCH (09:00)
--- NOTE | 2017-07-03 09:45 | Cat Scan Report ---
CT ABDOMEN PELVIS WITH CONTRAST: HISTORY: Nausea, vomiting, abdominal pain, diabetic ketoacidosis. COMPARISON: none. TECHNIQUE: Helical CT in 1.25mm intervals following IV contrast. Sagittal and coronal reconstructions. FINDINGS: Lung bases: Normal. Liver: Normal. Biliary system: Normal. Pancreas: Normal. Spleen: Normal. Kidneys/ureters/bladder: Normal. Adrenal glands: Normal. Aorta: Normal. Intestines: Normal. Appendix: Normal. Pelvic viscera: A 3.7 cm right ovarian cyst and a 1.3 cm left ovarian cyst are identified. The uterus and cervix are unremarkable. Ascites: None. Adenopathy: None. Musculoskeletal: Normal. IMPRESSION: No acute inflammatory process is identified. Bilateral ovarian cysts as described.
--- NOTE | 2017-07-03 09:48 | Progress Note ---
Hospitalist Physical - Constitutional Vitals: Temp Pulse Resp BP Pulse Ox 98 F 125 H 23 121/73 100 07/03/17 07:30 07/03/17 08:31 07/03/17 08:31 07/03/17 08:31 07/03/17 08:31 Results - Labs CBC & Chem 7: 07/03/17 07:53 07/03/17 07:53 Labs: Laboratory Last Values WBC 13.3 K/mm3 (4.5-11.0) H 07/03/17 07:53 RBC 4.43 M/mm3 (3.65-5.03) 07/03/17 07:53 Hgb 14.2 gm/dl (10.1-14.3) 07/03/17 07:53 Hct 44.8 % (30.3-42.9) H 07/03/17 07:53 MCV 101 fl (79-97) H 07/03/17 07:53 MCH 32 pg (28-32) 07/03/17 07:53 MCHC 32 % (30-34) 07/03/17 07:53 RDW 13.1 % (13.2-15.2) L 07/03/17 07:53 Plt Count 383 K/mm3 (140-440) 07/03/17 07:53 Lymph % (Auto) 7.1 % (13.4-35.0) L 07/03/17 07:53 [place] % (Auto) 3.8 % (0.0-7.3) 07/03/17 07:53 Eos % (Auto) 0.1 % (0.0-4.3) 07/03/17 07:53 Baso % (Auto) 0.4 % (0.0-1.8) 07/03/17 07:53 Lymph # 1.0 K/mm3 (1.2-5.4) L 07/03/17 07:53 [place] # 0.5 K/mm3 (0.0-0.8) 07/03/17 07:53 Eos # 0.0 K/mm3 (0.0-0.4) 07/03/17 07:53 Baso # 0.1 K/mm3 (0.0-0.1) 07/03/17 07:53 Seg Neutrophils % 88.6 % (40.0-70.0) H 07/03/17 07:53 Seg Neutrophils # 11.8 K/mm3 (1.8-7.7) H 07/03/17 07:53 VBG pH 7.064 (7.320-7.420) L* 07/03/17 08:51 Sodium 129 mmol/L (137-145) L 07/03/17 07:53 Potassium 5.3 mmol/L (3.6-5.0) H 07/03/17 07:53 Chloride 84.0 mmol/L (98-107) L 07/03/17 07:53 Carbon Dioxide 8 mmol/L (22-30) L* 07/03/17 07:53 Anion Gap 42 mmol/L 07/03/17 07:53 BUN 25 mg/dL (7-17) H 07/03/17 07:53 Creatinine 1.2 mg/dL (0.7-1.2) 07/03/17 07:53 Estimated GFR 51 ml/min 07/03/17 07:53 BUN/Creatinine Ratio 21 % 07/03/17 07:53 Glucose 621 mg/dL (65-100) H* 07/03/17 07:53 Calcium 8.5 mg/dL (8.4-10.2) 07/03/17 07:53 Phosphorus 4.90 mg/dL (2.5-4.5) H 07/03/17 08:51 Magnesium 1.70 mg/dL (1.7-2.3) 07/03/17 08:51 Total Bilirubin 0.80 mg/dL (0.1-1.2) 07/03/17 07:53 AST 10 units/L (5-40) 07/03/17 07:53 ALT 8 units/L (7-56) 07/03/17 07:53 Alkaline Phosphatase 53 units/L (35-129) 07/03/17 07:53 Troponin T < 0.010 ng/mL (0.00-0.029) 07/03/17 07:53 Total Protein 7.3 g/dL (6.3-8.2) 07/03/17 07:53 Albumin 4.3 g/dL (3.9-5) 07/03/17 07:53 Albumin/Globulin Ratio 1.4 % 03/04/18 07:53 Lipase 109 units/L (13-60) H 07/03/17 07:53 HCG, Qual Negative (Negative) 07/03/17 08:51
[2017-07-03 09:49] LABS: Bilirubin,Urine NEG (Negative); Blood,Urine NEG (Negative); Color,Urine Straw (Yellow); Mucus,Urine FEW /HPF; Protein,Urine <15 mg/dL mg/dL (Negative); Urobilinogen,Urine < 2.0 mg/dL (<2.0)
--- NOTE | 2017-07-03 10:01 | History and Physical Report ---
History of Present Illness Date of examination: 07/03/17 Date of admission: 07/03/17 09:40 Chief complaint: nausea, vomiting, Abdominal pain x 2 days History of present illness: Patient is 36 yo with history of diabetes. She was on lantus at night at home. She presents with nausea, vomiting and abdominal pain and dizziness for 2 days. She states she vomits about 3-4 times daily, non bloody. Abdominal pain is 8/10 , mid abdomen, dull pain, no radiation, no relationship to meals. Symptoms were getting worse therefore came to ED. Patient states she had been on lantus QHS and Novolog with meals , however her Novolog was discontinued by her Primary Physician about 2 weeks ago. In Emergency Dept, glucose level was 621, CO2 of 8 , anion gap of 42. She is diagnosed with diabetic ketoacidosis. Willl admit to ICU. Past History Past Medical History: diabetes, hypertension Past Surgical History: Other (Neck surgery) Social history: single, smoking (smokes half pack cigarettes daily), alcohol abuse (Drinks alcohol every other day, last drink 2 weks ago), full code, other (smokes half pack cigarettes daily, ) Family history: hypertension Medications and Allergies Allergies Allergy/AdvReac Type Severity Reaction Status Date / Time No Known Allergies Allergy Unverified 07/03/17 07:34 Home Medications Medication Instructions Recorded Confirmed Last Taken Type Insulin Detemir [Levemir] 15 units SUB-Q QHS units 09/29/16 07/03/17 Unknown Rx Levothyroxine 07/03/17 Unknown History Active Meds: Active Medications Dextrose (D50w (25gm) Syringe) 0 ml IV PRN PRN PRN Reason: Hypoglycemia Insulin Human Regular 100 (units/ Sodium Chloride) 100 mls @ 1 mls/hr IV TITR MAUDE; Protocol Review of Systems All systems: negative (No fever, no cough, no urinary symptoms. All other systems reviewed and are negative) Exam - Physical Exam Narrative exam: Gen appearance: Not in acute distress, lying in bed HEENT:Normocephalic, atraumatic Neck:Supple, no JVD Lungs: Clear to auscultation bilaterally, no crackles , no wheeze Heart: S1 and S2 regular, no murmurs, rubs or gallop Abdomen: soft, mild tender diffusely, no rebound tenderness, non distended, normal bowel sounds Ext: No edema, no clubbing, no cyanosis Neuro: Awake,alert,oriented x 3, normal speech, no focal signs Psych: Normal mood - Constitutional Vitals: Temp Pulse Resp BP Pulse Ox 98 F 125 H 23 121/73 100 07/03/17 07:30 07/03/17 08:31 07/03/17 08:31 07/03/17 08:31 07/03/17 08:31 Results - Labs CBC & Chem 7: 07/03/17 07:53 07/04/17 00:23 Labs: Abnormal lab results 07/03/17 07/03/17 07/03/17 Range/Units 07:53 07:53 08:51 WBC 13.3 H (4.5-11.0) K/mm3 Hct 44.8 H (30.3-42.9) % MCV 101 H (79-97) fl RDW 13.1 L (13.2-15.2) % Lymph % (Auto) 7.1 L (13.4-35.0) % Lymph # 1.0 L (1.2-5.4) K/mm3 Seg Neutrophils % 88.6 H (40.0-70.0) % Seg Neutrophils # 11.8 H (1.8-7.7) K/mm3 VBG pH 7.064 L* (7.320-7.420) Sodium 129 L (137-145) mmol/L Potassium 5.3 H (3.6-5.0) mmol/L Chloride 84.0 L (98-107) mmol/L Carbon Dioxide 8 L* (22-30) mmol/L BUN 25 H (7-17) mg/dL Glucose 621 H* (65-100) mg/dL Phosphorus (2.5-4.5) mg/dL Lipase 109 H (13-60) units/L 07/03/17 Range/Units 08:51 WBC (4.5-11.0) K/mm3 Hct (30.3-42.9) % MCV (79-97) fl RDW (13.2-15.2) % Lymph % (Auto) (13.4-35.0) % Lymph # (1.2-5.4) K/mm3 Seg Neutrophils % (40.0-70.0) % Seg Neutrophils # (1.8-7.7) K/mm3 VBG pH (7.320-7.420) Sodium (137-145) mmol/L Potassium (3.6-5.0) mmol/L Chloride (98-107) mmol/L Carbon Dioxide (22-30) mmol/L BUN (7-17) mg/dL Glucose (65-100) mg/dL Phosphorus 4.90 H (2.5-4.5) mg/dL Lipase (13-60) units/L Assessment and Plan Diabetic ketoacidosis. Admit to ICU. Start Insulin drip. Give ivf bolus. use DKA protocol Serial BMP levels Monitor anion gap Continue Insulin drip until anion gap closes Severe metabolic acidosis. Start Bicarb drip Abdominal pain due to diabetic ketoacidosis. . CT Abdomen unremarkable except bilateral ovarian cysts. Bilateral ovarian cysts. To follow as outpatient. Hyperkalemia. Mild. will monitor serial BMP. Hyponatremia. Continue to monitor sodium level DVT prophylaxis with Heparin
[2017-07-03] MEDS ORDERED: MORPHINE IV PRN (10:19)
[2017-07-03] MEDS ORDERED: ZOFRAN IV PRN (10:19)
[2017-07-03 10:23] LABS: Calcium 8.1 mg/dL (8.4-10.2)
[2017-07-03] MEDS ORDERED: MILK OF MAGNESIA PO PRN (11:41)
[2017-07-03] MEDS ORDERED: ALUM-MAG HYDROX-SIMETH 200-200-20MG/5ML PO PRN (11:41)
[2017-07-03] MEDS ORDERED: DULCOLAX PR PRN (11:41)
[2017-07-03] MEDS ORDERED: D5W/0.45% NACL/KCL 20 MEQ 20 MEQ/1,000 ML BAG IV ONE ×2 (12:30→21:11)
[2017-07-03 12:49] LABS: BUN/Creatinine Ratio 22; Blood Urea Nitrogen 22 mg/dL (7-17); Calcium 7.7 mg/dL (8.4-10.2); Hemolysis Index 7
[2017-07-03] MEDS: SODIUM BICARBONATE 100 MEQ in STERILE WATER 1,000 ML IV SCH (13:44)
[2017-07-03 14:18] LABS: BUN/Creatinine Ratio 24; Blood Urea Nitrogen 22 mg/dL (7-17); Calcium 7.7 mg/dL (8.4-10.2); Hemolysis Index 51
[2017-07-03 16:20] LABS: BUN/Creatinine Ratio 19; Blood Urea Nitrogen 17 mg/dL (7-17); Calcium 7.6 mg/dL (8.4-10.2); Hemolysis Index 16
[2017-07-03] MEDS: MORPHINE IV PRN (20:03)
[2017-07-03] MEDS: HEPARIN SUB-Q SCH (22:11)
[2017-07-03] MEDS ORDERED: D5W/0.45% NACL/KCL 20 MEQ 20 MEQ/1,000 ML BAG IV SCH (23:00)
[2017-07-03] MEDS ORDERED: D5/0.45NS 1,000 ML IV SCH (23:00)
[2017-07-04] MEDS: MORPHINE IV PRN ×3 (00:20→21:48)
[2017-07-04 00:46] LABS: BUN/Creatinine Ratio 18; Blood Urea Nitrogen 11 mg/dL (7-17); Calcium 7.5 mg/dL (8.4-10.2); Hemolysis Index 93
[2017-07-04] MEDS: SODIUM BICARBONATE 100 MEQ in STERILE WATER 1,000 ML IV SCH (01:29)
[2017-07-04 02:40] LABS: Creatine Kinase MB < 1.0 ng/mL (0.0-4.0)
[2017-07-04] MEDS: HEPARIN SUB-Q SCH ×3 (06:26→21:47)
[2017-07-04 08:34] LABS: BUN/Creatinine Ratio 12; Blood Urea Nitrogen 7 mg/dL (7-17); Calcium 7.6 mg/dL (8.4-10.2); Hemolysis Index 3
[2017-07-04 09:01] LABS: Creatine Kinase MB < 1.0 ng/mL (0.0-4.0)
--- NOTE | 2017-07-04 09:52 | Progress Note ---
Assessment and Plan Assessment and plan: Diabetic ketoacidosis. Improving. Glucose controlled, and Anion gap down to 21 still slightly elevated. Repeat Serial BMP levels Monitor anion gap Continue Insulin drip until anion gap closes. May switch to subcut Insulin later today and transfer to medical floor. Severe metabolic acidosis, now resolved. Discontinue Bicarb drip. Start Bicarb drip Abdominal pain due to diabetic ketoacidosis. . CT Abdomen unremarkable except bilateral ovarian cysts. Bilateral ovarian cysts. To follow as outpatient. Hyperkalemia, now resolved. Hyponatremia. Continue to monitor sodium level Hypokalemia. Replace and recheck DVT prophylaxis with Heparin subcut. History Interval history: feels better, no more vomiting less abdominal pain Hospitalist Physical - Physical exam Narrative exam: Gen appearance: Not in acute distress, lying in bed HEENT:Normocephalic, atraumatic Neck:Supple, no JVD Lungs: Clear to auscultation bilaterally, no crackles , no wheeze Heart: S1 and S2 regular, no murmurs, rubs or gallop Abdomen: soft, mild tender diffusely, no rebound tenderness, non distended, normal bowel sounds Ext: No edema, no clubbing, no cyanosis Neuro: Awake,alert,oriented x 3, normal speech, no focal signs Psych: Normal mood - Constitutional Vitals: Temp Pulse Resp BP Pulse Ox 98.4 F 88 14 91/55 99 07/04/17 08:00 07/04/17 06:51 07/04/17 06:51 07/04/17 06:51 07/04/17 06:51 Results - Labs CBC & Chem 7: 07/03/17 07:53 07/04/17 13:30 Labs: Laboratory Last Values WBC 13.3 K/mm3 (4.5-11.0) H 07/03/17 07:53 RBC 4.43 M/mm3 (3.65-5.03) 07/03/17 07:53 Hgb 14.2 gm/dl (10.1-14.3) 07/03/17 07:53 Hct 44.8 % (30.3-42.9) H 07/03/17 07:53 MCV 101 fl (79-97) H 07/03/17 07:53 MCH 32 pg (28-32) 07/03/17 07:53 MCHC 32 % (30-34) 07/03/17 07:53 RDW 13.1 % (13.2-15.2) L 07/03/17 07:53 Plt Count 383 K/mm3 (140-440) 07/03/17 07:53 Lymph % (Auto) 7.1 % (13.4-35.0) L 07/03/17 07:53 [place] % (Auto) 3.8 % (0.0-7.3) 07/03/17 07:53 Eos % (Auto) 0.1 % (0.0-4.3) 07/03/17 07:53 Baso % (Auto) 0.4 % (0.0-1.8) 07/03/17 07:53 Lymph # 1.0 K/mm3 (1.2-5.4) L 07/03/17 07:53 [place] # 0.5 K/mm3 (0.0-0.8) 07/03/17 07:53 Eos # 0.0 K/mm3 (0.0-0.4) 07/03/17 07:53 Baso # 0.1 K/mm3 (0.0-0.1) 07/03/17 07:53 Seg Neutrophils % 88.6 % (40.0-70.0) H 07/03/17 07:53 Seg Neutrophils # 11.8 K/mm3 (1.8-7.7) H 07/03/17 07:53 VBG pH 7.064 (7.320-7.420) L* 07/03/17 08:51 Sodium 134 mmol/L (137-145) L 07/04/17 08:13 Potassium 3.1 mmol/L (3.6-5.0) L 07/04/17 08:13 Chloride 93.8 mmol/L (98-107) L 07/04/17 08:13 Carbon Dioxide 22 mmol/L (22-30) D 07/04/17 08:13 Anion Gap 21 mmol/L 07/04/17 08:13 BUN 7 mg/dL (7-17) 07/04/17 08:13 Creatinine 0.6 mg/dL (0.7-1.2) L 07/04/17 08:13 Estimated GFR > 60 ml/min 07/04/17 08:13 BUN/Creatinine Ratio 12 % 07/04/17 08:13 Glucose 199 mg/dL (65-100) H 07/04/17 08:13 POC Glucose 158 (70-105) H 07/04/17 06:48 Hemoglobin A1c 10.2 % (4-6) H 07/04/17 06:28 Calcium 7.6 mg/dL (8.4-10.2) L 07/04/17 08:13 Phosphorus 4.90 mg/dL (2.5-4.5) H 07/03/17 08:51 Magnesium 1.70 mg/dL (1.7-2.3) 07/03/17 08:51 Total Bilirubin 0.80 mg/dL (0.1-1.2) 07/03/17 07:53 AST 10 units/L (5-40) 07/03/17 07:53 ALT 8 units/L (7-56) 07/03/17 07:53 Alkaline Phosphatase 53 units/L (35-129) 07/03/17 07:53 Total Creatine Kinase 19 units/L (30-135) L 07/04/17 08:13 CK-MB (CK-2) < 1.0 ng/mL (0.0-4.0) 07/04/17 08:13 CK-MB (CK-2) Rel Index 5.2 (0-4) H 07/04/17 08:13 Troponin T < 0.010 ng/mL (0.00-0.029) 07/04/17 08:13 Total Protein 7.3 g/dL (6.3-8.2) 07/03/17 07:53 Albumin 4.3 g/dL (3.9-5) 07/03/17 07:53 Albumin/Globulin Ratio 1.4 % 07/03/17 07:53 Lipase 109 units/L (13-60) H 07/03/17 07:53 HCG, Qual Negative (Negative) 07/03/17 08:51 Urine Color Straw (Yellow) 07/03/17 09:28 Urine Turbidity Clear (Clear) 07/03/17 09:28 Urine pH 5.0 (5.0-7.0) 07/03/17 09:28 Ur Specific [place] 1.020 (1.003-1.030) 07/03/17 09:28 Urine Protein <15 mg/dl mg/dL (Negative) 07/03/17 09:28 Urine Glucose (UA) >=500 mg/dL (Negative) 07/03/17: Urine Ketones 80 mg/dL (Negative) 07/03/17: Urine Blood Neg (Negative) 07/03/17: Urine Nitrite Neg (Negative) 07/03/17: Urine Bilirubin Neg (Negative) 07/03/17: Urine Urobilinogen < 2.0 mg/dL (<2.0) 07/03/17 09: Ur Leukocyte Esterase Neg (Negative) 07/03/17:28 Urine WBC (Auto) 2.0 /HPF (0.0-6.0) 07/03/17: Urine RBC (Auto) 4.0 /HPF (0.0-6.0) 07/03/17: U Epithel Cells (Auto) 4.0 /HPF (0-13.0) 07/03/17: Urine Mucus Few /HPF 07/03/17 09:28
[2017-07-04] MEDS ORDERED: K-DUR PO ONE ×2 (10:00→14:00)
[2017-07-04] MEDS ORDERED: KCL 10MEQ/100ML 10 MEQ/100 ML BAG IV SCH (10:00)
[2017-07-04 13:53] LABS: BUN/Creatinine Ratio 10; Blood Urea Nitrogen 6 mg/dL (7-17); Calcium 7.9 mg/dL (8.4-10.2); Hemolysis Index 9
[2017-07-04] MEDS: LEVEMIR (NF) SUB-Q SCH (14:40)
[2017-07-04] MEDS: NOVOLOG SUB-Q SCH ×4 (15:51→21:52)
[2017-07-04] MEDS: NACL 0.9% 1000 ML 1,000 ML IV SCH (17:48)
[2017-07-05] MEDS: NACL 0.9% 1000 ML 1,000 ML IV SCH ×2 (01:11→07:33)
[2017-07-05] MEDS: HEPARIN SUB-Q SCH ×3 (05:44→23:49)
[2017-07-05 07:16] LABS: Hematocrit 33.4 % (30.3-42.9); Hemoglobin 11.6 gm/dl (10.1-14.3); Mean Corpuscular HGB Conc 35 % (30-34); Mean Corpuscular Hemoglobin 33 pg (28-32); Mean Corpuscular Volume 96 fl (79-97); Platelet Count 240 K/mm3 (140-440); Red Blood Count 3.49 M/mm3 (3.65-5.03); Red Cell Distribution Width 12.7 % (13.2-15.2)
[2017-07-05 07:49] LABS: BUN/Creatinine Ratio 12; Blood Urea Nitrogen 6 mg/dL (7-17); Calcium 7.6 mg/dL (8.4-10.2); Hemolysis Index 1
[2017-07-05] MEDS: NOVOLOG SUB-Q SCH ×6 (08:25→23:48)
[2017-07-05] MEDS: LEVEMIR (NF) SUB-Q SCH (08:31)
[2017-07-05] MEDS ORDERED: K-DUR PO ONE (09:00)
--- NOTE | 2017-07-05 11:17 | Progress Note ---
Assessment and Plan Assessment and plan: Diabetic ketoacidosis. Improving. Glucose controlled, and Anion gap down to 21 still slightly elevated. Repeat Serial BMP levels Monitor anion gap Continue Insulin drip until anion gap closes. May switch to subcut Insulin later today and transfer to medical floor. Severe metabolic acidosis, now resolved. Discontinue Bicarb drip. Start Bicarb drip Abdominal pain due to diabetic ketoacidosis. . CT Abdomen unremarkable except bilateral ovarian cysts. Bilateral ovarian cysts. To follow as outpatient. Hyperkalemia, now resolved. Hyponatremia. Continue to monitor sodium level Hypokalemia. Replace and recheck DVT prophylaxis with Heparin subcut. Hospitalist Physical - Constitutional Vitals: Temp Pulse Resp BP Pulse Ox 98.3 F 65 18 112/77 100 07/05/17 07:17 07/05/17 07:17 07/05/17 07:17 07/05/17 07:17 07/05/17 07:17 Results - Labs CBC & Chem 7: 07/05/17 05:19 07/05/17 05:19 Labs: Laboratory Last Values WBC 4.0 K/mm3 (4.5-11.0) L 07/05/17 05:19 RBC 3.49 M/mm3 (3.65-5.03) L 07/05/17 05:19 Hgb 11.6 gm/dl (10.1-14.3) 07/05/17 05:19 Hct 33.4 % (30.3-42.9) D 07/05/17 05:19 MCV 96 fl (79-97) 07/05/17 05:19 MCH 33 pg (28-32) H 07/05/17 05:19 MCHC 35 % (30-34) H 07/05/17 05:19 RDW 12.7 % (13.2-15.2) L 07/05/17 05:19 Plt Count 240 K/mm3 (140-440) 07/05/17 05:19 Lymph % (Auto) 7.1 % (13.4-35.0) L 07/03/17 07:53 [place] % (Auto) 3.8 % (0.0-7.3) 07/03/17 07:53 Eos % (Auto) 0.1 % (0.0-4.3) 07/03/17 07:53 Baso % (Auto) 0.4 % (0.0-1.8) 07/03/17 07:53 Lymph # 1.0 K/mm3 (1.2-5.4) L 07/03/17 07:53 [place] # 0.5 K/mm3 (0.0-0.8) 07/03/17 07:53 Eos # 0.0 K/mm3 (0.0-0.4) 07/03/17 07:53 Baso # 0.1 K/mm3 (0.0-0.1) 07/03/17 07:53 Seg Neutrophils % 88.6 % (40.0-70.0) H 07/03/17 07:53 Seg Neutrophils # 11.8 K/mm3 (1.8-7.7) H 07/03/17 07:53 VBG pH 7.064 (7.320-7.420) L* 07/03/17 08:51 Sodium 138 mmol/L (137-145) 07/05/17 05:19 Potassium 2.6 mmol/L (3.6-5.0) L* D 07/05/17 05:19 Chloride 99.5 mmol/L (98-107) 07/05/17 05:19 Carbon Dioxide 25 mmol/L (22-30) 07/05/17 05:19 Anion Gap 16 mmol/L 07/05/17 05:19 BUN 6 mg/dL (7-17) L 07/05/17 05:19 Creatinine 0.5 mg/dL (0.7-1.2) L 07/05/17 05:19 Estimated GFR > 60 ml/min 07/05/17 05:19 BUN/Creatinine Ratio 12 % 07/05/17 05:19 Glucose 131 mg/dL (65-100) H 07/05/17 05:19 POC Glucose < 40 (70-105) L 07/05/17 04:49 Hemoglobin A1c 10.2 % (4-6) H 07/04/17 06:28 Calcium 7.6 mg/dL (8.4-10.2) L 07/05/17 05:19 Phosphorus 4.90 mg/dL (2.5-4.5) H 07/03/17 08:51 Magnesium 1.70 mg/dL (1.7-2.3) 07/03/17 08:51 Total Bilirubin 0.80 mg/dL (0.1-1.2) 07/03/17 07:53 AST 10 units/L (5-40) 07/03/17 07:53 ALT 8 units/L (7-56) 07/03/17 07:53 Alkaline Phosphatase 53 units/L (35-129) 07/03/17 07:53 Total Creatine Kinase 19 units/L (30-135) L 07/04/17 08:13 CK-MB (CK-2) < 1.0 ng/mL (0.0-4.0) 07/04/17 08:13 CK-MB (CK-2) Rel Index 5.2 (0-4) H 07/04/17 08:13 Troponin T < 0.010 ng/mL (0.00-0.029) 07/04/17 13:30 Total Protein 7.3 g/dL (6.3-8.2) 07/03/17 07:53 Albumin 4.3 g/dL (3.9-5) 07/03/17 07:53 Albumin/Globulin Ratio 1.4 % 07/03/17 07:53 Lipase 109 units/L (13-60) H 07/03/17 07:53 HCG, Qual Negative (Negative) 07/03/17 08:51 Urine Color Straw (Yellow) 07/03/17 09:28 Urine Turbidity Clear (Clear) 07/03/17 09:28 Urine pH 5.0 (5.0-7.0) 07/03/17 09:28 Ur Specific [place] 1.020 (1.003-1.030) 07/03/17 09:28 Urine Protein <15 mg/dl mg/dL (Negative) 07/03/17 09:28 Urine Glucose (UA) >=500 mg/dL (Negative) 07/03/17 09:28 Urine Ketones 80 mg/dL (Negative) 07/03/17 09:28 Urine Blood Neg (Negative) 07/03/17 09:28 Urine Nitrite Neg (Negative) 07/03/17 09:28 Urine Bilirubin Neg (Negative) 07/03/17 09:28 Urine Urobilinogen < 2.0 mg/dL (<2.0) 07/03/17 09:28 Ur Leukocyte Esterase Neg (Negative) 07/03/17 09:28 Urine WBC (Auto) 2.0 /HPF (0.0-6.0) 07/03/17 09:28 Urine RBC (Auto) 4.0 /HPF (0.0-6.0) 07/03/17 09:28 U Epithel Cells (Auto) 4.0 /HPF (0-13.0) 07/03/17 09:28 Urine Mucus Few /HPF 07/03/17 09:28
[2017-07-05] MEDS: MORPHINE IV PRN ×2 (12:04→23:48)
[2017-07-05] MEDS: KCL 40 MEQ in NACL 0.45% 1000 ML 1,000 ML IV SCH (12:09)
[2017-07-05] MEDS ORDERED: LEVEMIR (NF) SUB-Q SCH (22:00)
[2017-07-06] MEDS: HEPARIN SUB-Q SCH ×3 (05:45→21:41)
[2017-07-06 06:58] LABS: BUN/Creatinine Ratio 15; Blood Urea Nitrogen 6 mg/dL (7-17); Calcium 7.7 mg/dL (8.4-10.2); Hemolysis Index 8
[2017-07-06] MEDS: NOVOLOG SUB-Q SCH ×4 (08:00→23:00)
[2017-07-06] MEDS: KCL 40 MEQ in NACL 0.45% 1000 ML 1,000 ML IV SCH (08:00)
[2017-07-06] MEDS ORDERED: LEVOTHYROXINE 200 MCG PO SCH (10:45)
[2017-07-06] MEDS ORDERED: NON-FORMULARY (Protonix Tab 40 MG) PO SCH (10:45)
[2017-07-06] MEDS: SYNTHROID PO SCH (11:00)
[2017-07-06] MEDS: PROTONIX PO SCH (11:14)
[2017-07-06] MEDS: MORPHINE IV PRN ×3 (11:14→21:41)
--- NOTE | 2017-07-06 13:23 | Progress Note ---
Hospitalist Physical - Constitutional Vitals: Temp Pulse Resp BP Pulse Ox 98.5 F 79 18 106/65 99 07/06/17 07:48 07/06/17 07:48 07/06/17 07:48 07/06/17 07:48 07/06/17 07:48 Results - Labs CBC & Chem 7: 07/05/17 05:19 07/06/17 06:05 Labs: Laboratory Last Values WBC 4.0 K/mm3 (4.5-11.0) L 07/05/17 05:19 RBC 3.49 M/mm3 (3.65-5.03) L 07/05/17 05:19 Hgb 11.6 gm/dl (10.1-14.3) 07/05/17 05:19 Hct 33.4 % (30.3-42.9) D 07/05/17 05:19 MCV 96 fl (79-97) 07/05/17 05:19 MCH 33 pg (28-32) H 07/05/17 05:19 MCHC 35 % (30-34) H 07/05/17 05:19 RDW 12.7 % (13.2-15.2) L 07/05/17 05:19 Plt Count 240 K/mm3 (140-440) 07/05/17 05:19 Lymph % (Auto) 7.1 % (13.4-35.0) L 07/03/17 07:53 [place] % (Auto) 3.8 % (0.0-7.3) 07/03/17 07:53 Eos % (Auto) 0.1 % (0.0-4.3) 07/03/17 07:53 Baso % (Auto) 0.4 % (0.0-1.8) 07/03/17 07:53 Lymph # 1.0 K/mm3 (1.2-5.4) L 07/03/17 07:53 [place] # 0.5 K/mm3 (0.0-0.8) 07/03/17 07:53 Eos # 0.0 K/mm3 (0.0-0.4) 07/03/17 07:53 Baso # 0.1 K/mm3 (0.0-0.1) 07/03/17 07:53 Seg Neutrophils % 88.6 % (40.0-70.0) H 07/03/17 07:53 Seg Neutrophils # 11.8 K/mm3 (1.8-7.7) H 07/03/17 07:53 VBG pH 7.064 (7.320-7.420) L* 07/03/17 08:51 Sodium 131 mmol/L (137-145) L D 07/06/17 06:05 Potassium 3.9 mmol/L (3.6-5.0) D 07/06/17 06:05 Chloride 96.1 mmol/L (98-107) L 07/06/17 06:05 Carbon Dioxide 22 mmol/L (22-30) 07/06/17 06:05 Anion Gap 17 mmol/L 07/06/17 06:05 BUN 6 mg/dL (7-17) L 07/06/17 06:05 Creatinine 0.4 mg/dL (0.7-1.2) L 07/06/17 06:05 Estimated GFR > 60 ml/min 07/06/17 06:05 BUN/Creatinine Ratio 15 % 07/06/17 06:05 Glucose 309 mg/dL (65-100) H 07/06/17 06:05 POC Glucose 261 (70-105) H 07/06/17 11:41 Hemoglobin A1c 10.2 % (4-6) H 07/04/17 06:28 Calcium 7.7 mg/dL (8.4-10.2) L 07/06/17 06:05 Phosphorus 4.90 mg/dL (2.5-4.5) H 07/03/17 08:51 Magnesium 1.80 mg/dL (1.7-2.3) 07/06/17 06:05 Total Bilirubin 0.80 mg/dL (0.1-1.2) 07/03/17 07:53 AST 10 units/L (5-40) 07/03/17 07:53 ALT 8 units/L (7-56) 07/03/17 07:53 Alkaline Phosphatase 53 units/L (35-129) 07/03/17 07:53 Total Creatine Kinase 19 units/L (30-135) L 07/04/17 08:13 CK-MB (CK-2) < 1.0 ng/mL (0.0-4.0) 07/04/17 08:13 CK-MB (CK-2) Rel Index 5.2 (0-4) H 07/04/17 08:13 Troponin T < 0.010 ng/mL (0.00-0.029) 07/04/17 13:30 Total Protein 7.3 g/dL (6.3-8.2) 07/03/17 07:53 Albumin 4.3 g/dL (3.9-5) 07/03/17 07:53 Albumin/Globulin Ratio 1.4 % 07/03/17 07:53 Lipase 109 units/L (13-60) H 07/03/17 07:53 HCG, Qual Negative (Negative) 07/03/17 08:51 Urine Color Straw (Yellow) 07/03/17 09:28 Urine Turbidity Clear (Clear) 07/03/17 09:28 Urine pH 5.0 (5.0-7.0) 07/03/17 09:28 Ur Specific [place] 1.020 (1.003-1.030) 07/03/17 09:28 Urine Protein <15 mg/dl mg/dL (Negative) 07/03/17 09:28 Urine Glucose (UA) >=500 mg/dL (Negative) 07/03/17 09:28 Urine Ketones 80 mg/dL (Negative) 07/03/17 09:28 Urine Blood Neg (Negative) 07/03/17 09:28 Urine Nitrite Neg (Negative) 07/03/17 09:28 Urine Bilirubin Neg (Negative) 07/03/17 09:28 Urine Urobilinogen < 2.0 mg/dL (<2.0) 07/03/17 09:28 Ur Leukocyte Esterase Neg (Negative) 07/03/17 09:28 Urine WBC (Auto) 2.0 /HPF (0.0-6.0) 07/03/17 09:28 Urine RBC (Auto) 4.0 /HPF (0.0-6.0) 07/03/17 09:28 U Epithel Cells (Auto) 4.0 /HPF (0-13.0) 07/03/17 09:28 Urine Mucus Few /HPF 07/03/17 09:28
[2017-07-07] MEDS: SYNTHROID PO SCH (06:18)
[2017-07-07] MEDS: HEPARIN SUB-Q SCH ×2 (06:18→14:00)
[2017-07-07 06:30] LABS: BUN/Creatinine Ratio 20; Blood Urea Nitrogen 8 mg/dL (7-17); Calcium 7.9 mg/dL (8.4-10.2); Hemolysis Index 54
[2017-07-07] MEDS: NOVOLOG SUB-Q SCH ×2 (08:31→11:41)
[2017-07-07 08:37] VITALS: BP 103/65
[2017-07-07] MEDS: PROTONIX PO SCH (09:10)
[2017-07-07] MEDS ORDERED: HumaLOG SUB-Q SCH (16:30)
--- NOTE | 2017-07-07 17:24 | Discharge Summary ---
Providers - Providers Date of Admission: 07/03/17 09:40 Attending physician: ARIAS HOANG MD Primary care physician: DUMP GRADER Hospitalization Condition: Stable Disposition: DC-01 TO HOME OR SELFCARE Core Measure Documentation - Palliative Care Palliative Care/ Comfort Measures: Not Applicable Exam - Constitutional Vitals: Temp Pulse Resp BP Pulse Ox 98.4 F 65 20 103/65 96 07/07/17 08:05 07/07/17 08:05 07/07/17 08:05 07/07/17 08:05 07/07/17 08:05 Plan Follow up with: PRIMARY CARE, [Primary Care Provider] - 3-5 Days Prescriptions: Insulin NPH/Regular [NovoLIN 70/30] 18 unit SUB-Q BIDDIAB #1 vial Levothyroxine 200 mcg PO DAILY #30 Protonix TAB 40 mg PO DAILY #30
== END 2017-07-07 14:15 | disposition home or self-care (01) | DRG 638 ==
LOC: ED 07:08 → CC1 09:40 → 3A 07-04 17:02
PROVIDERS: ADMIT Internal Medicine; ATTEND Internal Medicine
DX: E11.10 Type 2 diabetes mellitus with ketoacidosis without coma (principal); E87.1 Hypo-osmolality and hyponatremia; E03.9 Hypothyroidism, unspecified; I10 Essential (primary) hypertension; N83.202 Unspecified ovarian cyst, left side; N83.201 Unspecified ovarian cyst, right side; E87.5 Hyperkalemia; Z79.4 Long term (current) use of insulin; Z82.49 Family history of ischemic heart disease and other diseases of the circulatory system
CPT/HCPCS: 36415; 74177; 80048; 80053; 81001; 82550; 82553; 82805; 82962; 83036; 83690; 83735; 84100; 84436; 84439; 84443; 84484; 84703; 85025; 85027; 93005; 93010; 96361; 96365; 96366; 96367; 96375; 96376; J1200; J1644; J1815; J1818; J2270; J2405; J2765; J3480; J7030; Q9967

== ENCOUNTER 2017-08-11 19:33 | Emergency (ER) | payer SELFPAY ==
[2017-08-11 19:49] VITALS: BP 114/73
[2017-08-11 20:17] LABS: Basophils # (Auto) 0.1 K/mm3 (0.0-0.1); Basophils % (Auto) 0.5 % (0.0-1.8); Hematocrit 44.2 % (30.3-42.9); Hemoglobin 14.7 gm/dl (10.1-14.3); Lymphocytes # (Auto) 0.8 K/mm3 (1.2-5.4); Mean Corpuscular HGB Conc 33 % (30-34); Mean Corpuscular Hemoglobin 33 pg (28-32); Mean Corpuscular Volume 100 fl (79-97); Monocytes # (Auto) 0.4 K/mm3 (0.0-0.8); Monocytes % (Auto) 3.3 % (0.0-7.3); Platelet Count 331 K/mm3 (140-440); Red Blood Count 4.44 M/mm3 (3.65-5.03); Red Cell Distribution Width 14.4 % (13.2-15.2)
[2017-08-11 20:35] LABS: BUN/Creatinine Ratio 14; Blood Urea Nitrogen 14 mg/dL (7-17); Calcium 8.6 mg/dL (8.4-10.2); Hemolysis Index 225
== END 2017-08-12 02:00 | disposition left against medical advice (07) ==
LOC: ED 19:33
DX: R10.9 Unspecified abdominal pain (principal); Z53.21 Procedure and treatment not carried out due to patient leaving prior to being seen by health care provider
CPT/HCPCS: 36415; 80048; 82805; 82962; 85025; 93005; 93010

== ENCOUNTER 2017-09-08 05:00 | Emergency (ER) | payer SELFPAY ==
[2017-09-08 05:53] LABS: Basophils % (Auto) 0.2 % (0.0-1.8); Eosinophils % (Auto) 0.1 % (0.0-4.3); Hematocrit 43.7 % (30.3-42.9); Hemoglobin 14.6 gm/dl (10.1-14.3); Mean Corpuscular HGB Conc 33 % (30-34); Mean Corpuscular Hemoglobin 33 pg (28-32); Mean Corpuscular Volume 99 fl (79-97); Monocytes # (Auto) 0.3 K/mm3 (0.0-0.8); Monocytes % (Auto) 2.7 % (0.0-7.3); Platelet Count 380 K/mm3 (140-440); Red Blood Count 4.41 M/mm3 (3.65-5.03); Red Cell Distribution Width 14.5 % (13.2-15.2)
[2017-09-08 06:10] LABS: Alanine Aminotransferase 10 units/L (7-56); Albumin 4.3 g/dL (3.9-5); BUN/Creatinine Ratio 16; Blood Urea Nitrogen 16 mg/dL (7-17); Hemolysis Index 13
[2017-09-08 07:55] VITALS: BP 109/75
[2017-09-08 08:25] LABS: Bacteria,Urine 1+ /HPF (Negative); Bilirubin,Urine NEG (Negative); Blood,Urine NEG (Negative); Color,Urine Yellow (Yellow); Hyaline Casts,Urine 1 /LPF; Mucus,Urine FEW /HPF; Urobilinogen,Urine < 2.0 mg/dL (<2.0)
== END 2017-09-08 09:05 | disposition left against medical advice (07) ==
LOC: ED 05:00
DX: R11.2 Nausea with vomiting, unspecified (principal); Z53.21 Procedure and treatment not carried out due to patient leaving prior to being seen by health care provider
CPT/HCPCS: 36415; 80053; 81001; 82010; 84703; 85025

== ENCOUNTER 2017-11-10 19:13 | Inpatient (IN) | payer OTHER ==
[2017-11-10] MEDS ORDERED: NACL 0.9% 1000 ML 1,000 ML ONE (19:50)
[2017-11-10] MEDS ORDERED: NACL 0.9% 500 ML 500 ML IV ONE (19:59)
[2017-11-10] MEDS ORDERED: HumuLIN R ONE (20:13)
--- NOTE | 2017-11-10 20:23 | Emergency Department Report ---
ED General Adult HPI - General Chief complaint: Hyperglycemia Stated complaint: HIGH B/P Time Seen by Provider: 11/10/17 20:12 Source: EMS Mode of arrival: Stretcher Limitations: Altered Mental Status - History of Present Illness Initial comments: According to EMS, patient was found by a family member at home to be extremely lethargic. EMS called and she had a glucose above 500. Patient has a history of noncompliance with her insulin medication. She was brought to the ER for evaluation. - Related Data Previous Rx's Medication Instructions Recorded Last Taken Type Insulin NPH/Regular [NovoLIN 70/30] 18 unit SUB-Q BIDDIAB #1 vial 07/07/17 Unknown Rx Levothyroxine 200 mcg PO DAILY #30 07/07/17 Unknown Rx Protonix TAB 40 mg PO DAILY #30 07/07/17 Unknown Rx Allergies Allergy/AdvReac Type Severity Reaction Status Date / Time No Known Allergies Allergy Verified 08/11/17 19:45 ED Review of Systems ROS: Stated complaint: HIGH B/P Other details as noted in HPI Comment: Unobtainable due to pts medical conditions ED Past Medical Hx - Past Medical History Hx Congestive Heart Failure: No Hx Diabetes: Yes Hx Asthma: No Hx COPD: No Hx HIV: No Additional medical history: Gangrene on finger on left hand - Surgical History Additional Surgical History: Neck surgery - Social History Smoking Status: Never Smoker Substance Use Type: None - Medications Home Medications: Home Medications Medication Instructions Recorded Confirmed Last Taken Type Insulin NPH/Regular [NovoLIN 70/30] 18 unit SUB-Q BIDDIAB #1 vial 07/07/17 Unknown Rx Levothyroxine 200 mcg PO DAILY #30 07/07/17 Unknown Rx Protonix TAB 40 mg PO DAILY #30 07/07/17 Unknown Rx ED Physical Exam - General Limitations: Altered Mental Status General appearance: lethargic, other (mild distress, acetone breath, kussmaul breathing) - Head Head exam: Present: atraumatic, normocephalic - Eye Eye exam: Present: normal appearance Pupils: Present: other (pt clinches her eyes shut when i open them) - ENT ENT exam: Present: mucous membranes dry - Neck Neck exam: Present: normal inspection - Respiratory Respiratory exam: Present: rhonchi. Absent: respiratory distress - Cardiovascular Cardiovascular Exam: Present: regular rate, normal rhythm. Absent: systolic murmur, diastolic murmur, rubs, gallop - GI/Abdominal GI/Abdominal exam: Present: soft, normal bowel sounds. Absent: tenderness - Extremities Exam Extremities exam: Present: normal inspection - Back Exam Back exam: Present: normal inspection - Neurological Exam Neurological exam: Present: altered - Skin Skin exam: Present: warm, dry, intact, normal color. Absent: rash ED Course Vital Signs 11/10/17 11/10/17 11/10/17 19:58 20:58 20:59 Temperature Pulse Rate 72 93 H 94 H Respiratory 16 33 H 31 H Rate Blood Pressure 92/51 Blood Pressure 88/31 [Left] O2 Sat by Pulse 96 98 100 Oximetry 11/10/17 11/10/17 11/10/17 21:00 21:02 21:04 Temperature Pulse Rate 105 H 98 H Respiratory 31 H 28 H Rate Blood Pressure 92/51 92/51 92/51 Blood Pressure [Left] O2 Sat by Pulse 98 99 99 Oximetry 11/10/17 11/10/17 11/10/17 21:06 21:08 21:10 Temperature Pulse Rate 95 H 92 H 90 Respiratory 29 H 21 29 H Rate Blood Pressure 92/51 92/51 92/51 Blood Pressure [Left] O2 Sat by Pulse 99 98 98 Oximetry 11/10/17 11/10/17 11/10/17 21:12 21:14 21:15 Temperature 92.7 F L Pulse Rate 91 H 92 H Respiratory 31 H 31 H Rate Blood Pressure 92/51 92/51 Blood Pressure [Left] O2 Sat by Pulse 98 97 Oximetry 11/10/17 11/10/17 11/10/17 21:16 21:18 21:20 Temperature Pulse Rate 92 H 92 H 90 Respiratory 34 H 33 H 31 H Rate Blood Pressure 92/51 92/41 92/41 Blood Pressure [Left] O2 Sat by Pulse 98 98 98 Oximetry 11/10/17 11/10/17 11/10/17 21:22 21:24 21:26 Temperature Pulse Rate 88 90 88 Respiratory 30 H 31 H Rate Blood Pressure 92/41 92/41 92/41 Blood Pressure [Left] O2 Sat by Pulse 98 97 97 Oximetry 11/10/17 11/10/17 11/10/17 21:28 21:30 21:32 Temperature Pulse Rate 88 88 119 H Respiratory 30 H 32 H 38 H Rate Blood Pressure 92/41 92/41 97/53 Blood Pressure [Left] O2 Sat by Pulse 95 97 97 Oximetry 11/10/17 11/10/17 11/10/17 21:34 21:36 21:38 Temperature Pulse Rate 88 88 88 Respiratory 32 H 33 H 31 H Rate Blood Pressure 97/53 97/53 97/53 Blood Pressure [Left] O2 Sat by Pulse 97 96 97 Oximetry 11/10/17 11/10/17 11/10/17 21:40 21:42 21:44 Temperature Pulse Rate 88 89 89 Respiratory 28 H 29 H 32 H Rate Blood Pressure 97/53 97/53 97/53 Blood Pressure [Left] O2 Sat by Pulse 97 97 97 Oximetry 11/10/17 11/10/17 11/10/17 21:45 21:46 21:48 Temperature Pulse Rate 89 89 Respiratory 29 H 29 H Rate Blood Pressure 83/51 83/51 83/51 Blood Pressure [Left] O2 Sat by Pulse 97 97 97 Oximetry 11/10/17 11/10/17 11/10/17 21:50 21:52 21:54 Temperature Pulse Rate 89 84 100 H Respiratory 34 H 26 H 30 H Rate Blood Pressure 83/51 83/51 83/51 Blood Pressure [Left] O2 Sat by Pulse 97 98 98 Oximetry 11/10/17 11/10/17 11/10/17 21:56 21:58 22:00 Temperature Pulse Rate 100 H 101 H 99 H Respiratory 31 H 29 H 33 H Rate Blood Pressure 83/51 83/51 83/51 Blood Pressure [Left] O2 Sat by Pulse 98 98 97 Oximetry 11/10/17 11/10/17 11/10/17 22:01 22:02 22:03 Temperature Pulse Rate 98 H 97 H 99 H Respiratory 31 H 27 H 31 H Rate Blood Pressure 77/47 92/51 92/51 Blood Pressure [Left] O2 Sat by Pulse 98 97 97 Oximetry 11/10/17 11/10/17 11/10/17 22:05 22:07 22:09 Temperature Pulse Rate 95 H 91 H 89 Respiratory 25 H 29 H 32 H Rate Blood Pressure 92/51 92/51 92/51 Blood Pressure [Left] O2 Sat by Pulse 94 95 94 Oximetry 11/10/17 11/10/17 11/10/17 22:11 22:12 22:13 Temperature Pulse Rate 89 87 85 Respiratory 38 H 30 H 31 H Rate Blood Pressure 77/37 77/47 Blood Pressure [Left] O2 Sat by Pulse 94 94 93 Oximetry 11/10/17 11/10/17 11/10/17 22:15 22:17 22:19 Temperature Pulse Rate 86 88 91 H Respiratory 29 H 27 H 28 H Rate Blood Pressure 78/40 78/40 78/40 Blood Pressure [Left] O2 Sat by Pulse 94 94 95 Oximetry 11/10/17 11/10/17 11/10/17 22:21 22:23 22:25 Temperature Pulse Rate 93 H 93 H 93 H Respiratory 31 H 30 H 28 H Rate Blood Pressure 78/40 78/40 78/40 Blood Pressure [Left] O2 Sat by Pulse 94 94 94 Oximetry 11/10/17 11/10/17 11/10/17 22:27 22:29 22:30 Temperature Pulse Rate 93 H 94 H 94 H Respiratory 28 H 31 H 31 H Rate Blood Pressure 78/40 78/40 86/60 Blood Pressure [Left] O2 Sat by Pulse 93 92 92 Oximetry 11/10/17 11/10/17 11/10/17 22:31 22:33 22:34 Temperature Pulse Rate 94 H 91 H 91 H Respiratory 28 H 29 H 30 H Rate Blood Pressure 86/60 86/60 86/60 Blood Pressure [Left] O2 Sat by Pulse 90 91 91 Oximetry 11/10/17 11/10/17 11/10/17 23:01 23:03 23:05 Temperature Pulse Rate 93 H 93 H 98 H Respiratory 33 H 29 H 32 H Rate Blood Pressure 86/60 86/60 86/60 Blood Pressure [Left] O2 Sat by Pulse 90 90 89 Oximetry 11/10/17 11/10/17 11/10/17 23:07 23:09 23:11 Temperature Pulse Rate 90 90 90 Respiratory 29 H 29 H 34 H Rate Blood Pressure 86/60 86/60 86/60 Blood Pressure [Left] O2 Sat by Pulse 87 88 89 Oximetry 11/10/17 11/10/17 11/10/17 23:13 23:14 23:15 Temperature Pulse Rate 92 H 93 H 96 H Respiratory 30 H 31 H 29 H Rate Blood Pressure 86/60 81/41 81/41 Blood Pressure [Left] O2 Sat by Pulse 89 91 91 Oximetry 11/10/17 11/10/17 11/10/17 23:17 23:19 23:21 Temperature Pulse Rate 93 H 93 H 94 H Respiratory 35 H 30 H 32 H Rate Blood Pressure 81/41 81/41 81/41 Blood Pressure [Left] O2 Sat by Pulse 90 89 89 Oximetry 11/10/17 11/10/17 11/10/17 23:23 23:25 23:27 Temperature Pulse Rate 93 H 91 H 92 H Respiratory 38 H 31 H 30 H Rate Blood Pressure 81/41 81/41 81/41 Blood Pressure [Left] O2 Sat by Pulse 89 88 88 Oximetry 11/10/17 11/10/17 11/10/17 23:29 23:30 23:31 Temperature Pulse Rate 92 H 93 H 93 H Respiratory 30 H 29 H 30 H Rate Blood Pressure 81/41 71/35 71/35 Blood Pressure [Left] O2 Sat by Pulse 88 89 88 Oximetry 11/10/17 11/10/17 11/10/17 23:32 23:33 23:35 Temperature Pulse Rate 93 H 99 H 99 H Respiratory 28 H 30 H 34 H Rate Blood Pressure 86/60 71/35 71/35 Blood Pressure [Left] O2 Sat by Pulse 89 89 90 Oximetry 11/10/17 11/10/17 11/10/17 23:37 23:39 23:41 Temperature Pulse Rate 93 H 97 H 92 H Respiratory 32 H 29 H 27 H Rate Blood Pressure 71/35 71/35 71/35 Blood Pressure [Left] O2 Sat by Pulse 89 87 88 Oximetry 11/10/17 11/10/17 11/10/17 23:43 23:45 23:47 Temperature Pulse Rate 91 H 90 92 H Respiratory 27 H 27 H 30 H Rate Blood Pressure 71/35 71/35 71/35 Blood Pressure [Left] O2 Sat by Pulse 87 86 84 Oximetry 11/10/17 11/10/17 11/10/17 23:49 23:51 23:53 Temperature Pulse Rate 92 H 92 H 91 H Respiratory 25 H 33 H 28 H Rate Blood Pressure 71/35 71/35 71/35 Blood Pressure [Left] O2 Sat by Pulse 85 87 89 Oximetry 11/10/17 11/10/17 11/11/17 23:55 23:57 00:15 Temperature Pulse Rate 97 H 67 95 H Respiratory 22 29 H 30 H Rate Blood Pressure 71/35 71/35 65/44 Blood Pressure [Left] O2 Sat by Pulse 89 89 89 Oximetry 11/11/17 11/11/17 11/11/17 00:17 00:19 00:21 Temperature Pulse Rate 97 H 89 102 H Respiratory 32 H 29 H 29 H Rate Blood Pressure 65/44 65/44 65/44 Blood Pressure [Left] O2 Sat by Pulse 90 89 87 Oximetry 11/11/17 11/11/17 11/11/17 00:23 00:25 00:27 Temperature Pulse Rate 102 H 98 H 99 H Respiratory 36 H 29 H 33 H Rate Blood Pressure 65/44 65/44 65/44 Blood Pressure [Left] O2 Sat by Pulse 89 87 88 Oximetry 11/11/17 11/11/17 11/11/17 00:29 00:30 00:31 Temperature Pulse Rate 95 H 86 86 Respiratory 29 H 33 H 30 H Rate Blood Pressure 65/44 64/28 64/28 Blood Pressure [Left] O2 Sat by Pulse 88 86 87 Oximetry 11/11/17 11/11/17 11/11/17 00:33 00:35 00:37 Temperature Pulse Rate 98 H 97 H 96 H Respiratory 25 H 28 H 32 H Rate Blood Pressure 64/28 64/28 64/28 Blood Pressure [Left] O2 Sat by Pulse 87 87 87 Oximetry 11/11/17 11/11/17 11/11/17 00:39 00:41 00:43 Temperature Pulse Rate 94 H 91 H Respiratory 24 24 Rate Blood Pressure 64/28 64/28 64/28 Blood Pressure [Left] O2 Sat by Pulse 87 84 85 Oximetry 11/11/17 11/11/17 11/11/17 00:45 00:47 00:49 Temperature Pulse Rate 56 L 60 Respiratory 15 Rate Blood Pressure 64/28 64/28 64/28 Blood Pressure [Left] O2 Sat by Pulse 86 88 92 Oximetry 11/11/17 11/11/17 11/11/17 00:51 00:53 00:55 Temperature Pulse Rate 76 112 H Respiratory 16 19 Rate Blood Pressure 64/28 64/28 64/28 Blood Pressure [Left] O2 Sat by Pulse 92 92 93 Oximetry 11/11/17 11/11/17 11/11/17 00:57 00:59 01:00 Temperature Pulse Rate 104 H 94 H 168 H Respiratory 19 19 Rate Blood Pressure 64/28 64/28 61/33 Blood Pressure [Left] O2 Sat by Pulse 93 92 92 Oximetry 11/11/17 11/11/17 11/11/17 01:01 01:03 01:05 Temperature Pulse Rate 84 100 H Respiratory 30 H 26 H Rate Blood Pressure 61/33 61/33 61/33 Blood Pressure [Left] O2 Sat by Pulse 92 90 91 Oximetry 11/11/17 11/11/17 11/11/17 01:06 01:07 01:09 Temperature Pulse Rate 101 H 100 H Respiratory 29 H 28 H Rate Blood Pressure 61/33 61/33 61/33 Blood Pressure [Left] O2 Sat by Pulse 90 90 89 Oximetry 11/11/17 11/11/17 11/11/17 01:11 01:13 01:15 Temperature Pulse Rate 99 H 101 H 100 H Respiratory 21 28 H 33 H Rate Blood Pressure 61/33 61/33 61/33 Blood Pressure [Left] O2 Sat by Pulse 89 91 90 Oximetry 11/11/17 11/11/17 11/11/17 01:17 01:19 01:21 Temperature Pulse Rate 101 H 101 H Respiratory 28 H 23 Rate Blood Pressure 61/33 69/36 72/36 Blood Pressure [Left] O2 Sat by Pulse 91 91 91 Oximetry 11/11/17 11/11/17 11/11/17 01:22 01:23 01:25 Temperature Pulse Rate 102 H Respiratory 29 H Rate Blood Pressure 72/36 72/36 83/35 Blood Pressure [Left] O2 Sat by Pulse 89 87 85 Oximetry 11/11/17 11/11/17 11/11/17 01:27 01:28 01:29 Temperature Pulse Rate 106 H Respiratory 29 H Rate Blood Pressure 83/35 87/36 87/36 Blood Pressure [Left] O2 Sat by Pulse 87 90 89 Oximetry 11/11/17 11/11/17 11/11/17 01:31 01:33 01:34 Temperature Pulse Rate 113 H 102 H 104 H Respiratory 23 26 H 31 H Rate Blood Pressure 78/42 78/42 80/40 Blood Pressure [Left] O2 Sat by Pulse 88 88 90 Oximetry 11/11/17 11/11/17 11/11/17 01:35 01:37 01:39 Temperature Pulse Rate Respiratory Rate Blood Pressure 80/40 83/44 83/44 Blood Pressure [Left] O2 Sat by Pulse 90 89 89 Oximetry 11/11/17 11/11/1711/11/18 01:40 01:41 01:43 Temperature Pulse Rate 109 H Respiratory 28 H Rate Blood Pressure 72/38 72/38 73/33 Blood Pressure [Left] O2 Sat by Pulse 88 89 90 Oximetry 11/11/17 11/11/17 11/11/17 01:45 01:46 01:47 Temperature Pulse Rate Respiratory 27 H 28 H Rate Blood Pressure 79/38 79/38 61/33 Blood Pressure [Left] O2 Sat by Pulse 88 87 88 Oximetry 11/11/17 11/11/17 11/11/17 01:49 01:51 01:52 Temperature Pulse Rate 129 H 108 H Respiratory 20 37 H 32 H Rate Blood Pressure 81/32 81/32 79/41 Blood Pressure [Left] O2 Sat by Pulse 91 92 83 L Oximetry 11/11/17 01:53 Temperature Pulse Rate 102 H Respiratory 32 H Rate Blood Pressure 79/41 Blood Pressure [Left] O2 Sat by Pulse 92 Oximetry - Central Line Placement Right SC Consent Obtained: emergent situation Patient Placed on Monitor/Pulse Ox: Yes MD Prep: mask, gown, gloves, other Central Line Prep: sterile drapes applied Local Anesthesia Used: Lidocaine 1%, with Epi Amount of Anesthesia Used (mls): 4 Ultrasound Used for Placement: Yes Central Line Lumen Inserted: triple Bloods Obtained for Lab: Yes Central Line Position: good blood return Dressing Applied: Tegaderm Post Procedure X-Ray: tip of catheter in good p Patient Tolerated Procedure: well, no complications Complications: none ED Medical Decision Making - Lab Data Result diagrams: 11/10/17 20:18 11/11/17 00:46 - EKG Data -: EKG Interpreted by Me EKG shows normal: sinus rhythm, axis, intervals Rate: normal - EKG Data Interpretation: nonspecific ST-T wave eva, other (prolonged QRS at 122) - Radiology Data Radiology results: report reviewed, image reviewed - Medical Decision Making 37-year-old female with past medical history of diabetes and medication noncompliance, polysubstance abuse, presents to the ER with altered mental status. Vital signs significant for hypothermia and hypotension. Patient was altered with a GCS of 10. She is protecting her airway. Glucose came back reading high. Patient was given aggressive IV fluid hydration, 10 units IV insulin, and broad-spectrum antibiotics. She is also hypoxic in the 80s. The patient was placed on a Ventimask. Patient is found to be in DKA with profound acidosis. Her venous pH was 6.8. Creatinine was 1.5 with a potassium of 7.5. There were EKG changes with a prolonged QRS of 122. Patient was given insulin/ bicarbonate/Kayexalate/albuterol/calcium gluconate. Nephrology was consulted who felt that was appropriate to be conservative at this time and was on medical management and the patient. The patient is placed on a Levophed infusion. White count came back at 40. Chest x-ray shows concerns for pneumonia. Given the patient is altered within significantly elevated white count, I scanned her abdomen, which showed no acute pathology. Patient will be admitted to the ICU for further management. Medical problems: Hypoxia, encephalopathy, DKA, metabolic acidosis, hyperkalemia , septic shock Critical Care Time: Yes (77) Critical care attestation.: If time is entered above; I have spent that time in minutes in the direct care of this critically ill patient, excluding procedure time. ED Disposition Clinical Impression: DKA (diabetic ketoacidoses), Metabolic acidosis, Sepsis, Encephalopathy Disposition: [id number] OP ADMIT IP TO THIS HOSP Is pt being admited?: Yes Condition: Stable
[2017-11-10] MEDS ORDERED: NACL 0.9% 1000 ML 3,000 ML IV ONE (20:24)
[2017-11-10] MEDS ORDERED: HumuLIN R IV ONE (20:24)
[2017-11-10] MEDS ORDERED: D50W (25GM) Syringe IV PRN (20:27)
[2017-11-10 20:43] LABS: Mean Corpuscular HGB Conc 27 % (30-34); Mean Corpuscular Hemoglobin 32 pg (28-32); Platelet Count 469 K/mm3 (140-440); Red Blood Count 3.59 M/mm3 (3.65-5.03); Red Cell Distribution Width 14.9 % (13.2-15.2)
[2017-11-10 20:47] LABS: Hemoglobin 11.5 gm/dl (10.1-14.3); Mean Corpuscular Volume 117 fl (79-97)
[2017-11-10 20:54] LABS: INR 1.48 (0.87-1.13)
[2017-11-10 20:59] LABS: Calcium 7.8 mg/dL (8.4-10.2)
[2017-11-10] MEDS ORDERED: NACL 0.9% 1000 ML 1,000 ML IV SCH ×2 (21:00→23:45)
[2017-11-10 21:22] LABS: Albumin 3.5 g/dL (3.9-5); Basophils % (Manual) 0.5 % (0.0-1.8); Calcium 7.6 mg/dL (8.4-10.2); Eosinophils % (Manual) 0 % (0.0-4.3); Monocytes % (Manual) 2.5 % (0.0-7.3); Total Cells Counted 200
[2017-11-10 21:23] LABS: Anisocytosis 1+; Macrocytosis Few
[2017-11-10] MEDS ORDERED: PROVENTIL IH ONE (21:24)
[2017-11-10] MEDS ORDERED: SODIUM BICARBONATE IV ONE ×2 (21:24→23:57)
--- NOTE | 2017-11-10 21:24 | XRay Report ---
FINAL REPORT EXAM: XR CHEST 1V AP HISTORY: possible Sepsis TECHNIQUE: Chest single AP PRIORS: None. FINDINGS: There is patchy increased opacity within the right lower lobe distribution. No evidence for pleural effusion. Pulmonary vasculature is unremarkable. Cardiac and mediastinal contours are unremarkable. IMPRESSION: Right lower lobe infiltrates suspicious for pneumonia
[2017-11-10] MEDS ORDERED: CALCIUM GLUCONATE 1,000 MG in NACL 0.9% 100 ML IV ONE (21:26)
[2017-11-10] MEDS ORDERED: ZOSYN/NS 4.5GM/100ML 4.5 GM/100 ML VIAL IV SCH (22:00)
[2017-11-10] MEDS ORDERED: ZITHROMAX 500 MG in NACL 0.9% 250ML 250 ML IV SCH (22:00)
[2017-11-10] MEDS ORDERED: VANCOMYCIN 1,250 MG in NACL 0.9% 250ML 250 ML IV ONE (22:00)
[2017-11-10] MEDS ORDERED: KIONEX PO ONE (22:00)
--- NOTE | 2017-11-10 22:06 | Event Note ---
Date: 11/10/17 Patient admitted with DKA, LOC, Hyperkalemia, Hypotension and AMS. Patient has EKG changes (slight widening of QRS) per ER physician. Her BP is too low and patient will not tolerate hemodialysis at this point. Patient was started on Insulin drip and received Albuterol per RN. IV [place] ordered. Kayexalate through NG tube ordered. Monitor BMP. D/w .
[2017-11-10] MEDS: HumuLIN R 100 UNITS in NACL 0.9% 99 ML IV SCH (22:11)
[2017-11-10 23:01] LABS: Bacteria,Urine 1+ /HPF (Negative); Bilirubin,Urine NEG (Negative); Blood,Urine MOD (Negative); Color,Urine Yellow (Yellow); Mucus,Urine FEW /HPF; Urobilinogen,Urine < 2.0 mg/dL (<2.0)
[2017-11-10 23:11] LABS: Amphetamine Screen,Urine PRESUMPTIVE NEGATIVE; Benzodiazepines Screen,Urine PRESUMPTIVE NEGATIVE; Cannabinoid Screen,Urine PRESUMPTIVE NEGATIVE; Cocaine Screen,Urine PRESUMPTIVE NEGATIVE; Methadone Screen,Urine PRESUMPTIVE NEGATIVE; Opiate Screen,Urine PRESUMPTIVE NEGATIVE
[2017-11-10] MEDS ORDERED: HALDOL IV ONE (23:44)
[2017-11-10] MEDS ORDERED: D5/0.45NS 1,000 ML IV SCH (23:45)
--- NOTE | 2017-11-10 23:53 | Cat Scan Report ---
FINAL REPORT EXAM: CT ABDOMEN PELVIS W CON HISTORY: sepsis, altered TECHNIQUE: CT abdomen and pelvis with intravenous contrast PRIORS: None. FINDINGS: In the visualized lung bases there are alveolar consolidated appearing bilateral pulmonary infiltrates. These have a peripheral distribution with central sparing. No focal abnormality identified within the liver parenchyma. The spleen demonstrates normal size and attenuation. No pancreatic abnormalities seen. The kidneys demonstrate symmetric contrast enhancement. No evidence of hydronephrosis. The adrenal glands are unremarkable Abdominal aorta is normal in caliber. No pathologically enlarged lymph nodes are identified. No signs of free fluid or free air No evidence of small bowel dilatation. Colon is nondistended. No pericolonic inflammatory change. Appendix is identified and is unremarkable. There is Adame within the urinary bladder which is decompressed IMPRESSION: Bilateral pulmonary infiltrates noted at the lung bases within atypical distribution. Findings are suggestive of eosinophilic pneumonia. Differential considerations include sarcoidosis, or idiopathic interstitial pneumonitis. Adame noted in the urinary bladder No acute findings in the abdomen or pelvis
[2017-11-10] MEDS ORDERED: ZOFRAN IV PRN (23:55)
--- NOTE | 2017-11-10 23:55 | History and Physical Report ---
History of Present Illness Date of examination: 11/10/17 History of present illness: 35-year-old woman with a history of diabetes was brought to the emergency room for evaluation of lethargy. The patient was found to be in DKA, septic shock. She is unable to give a history. Old records reviewed PAST MEDICAL HISTORY diabetes PAST SURGICAL HISTORY: None SOCIAL HISTORY: Unknown FAMILY HISTORY: Hypertension, diabetes Medications and Allergies Allergies Allergy/AdvReac Type Severity Reaction Status Date / Time No Known Allergies Allergy Verified 08/11/17 19:45 Home Medications Medication Instructions Recorded Confirmed Last Taken Type Insulin NPH/Regular [NovoLIN 70/30] 18 unit SUB-Q BIDDIAB #1 vial 07/07/17 Unknown Rx Levothyroxine 200 mcg PO DAILY #30 07/07/17 Unknown Rx Protonix TAB 40 mg PO DAILY #30 07/07/17 Unknown Rx Active Meds: Active Medications Dextrose (D50w (25gm) Syringe) 0 ml IV PRN PRN PRN Reason: Hypoglycemia Sodium Chloride (Nacl 0.9% 1000 Ml) 1,000 mls @ 200 mls/hr IV DIRECT MAUDE Insulin Human Regular 100 (units/ Sodium Chloride) 100 mls @ 1 mls/hr IV TITR MAUDE; Protocol Last Titration: 11/10/17 23:15 Dose: 8 units/hr, 8 mls/hr Azithromycin 500 mg/ Sodium (Chloride) 250 mls @ 250 mls/hr IV Q24HR MAUDE Piperacillin Sod/Tazobactam Sod (Zosyn/Ns 2.25 Gm/50ml) 2.25 gm in 50 mls @ 100 mls/hr IV Q6HR MAUDE Norepinephrine (Levophed Drip 4 Mg/Ns 250 Ml) 4 mg in 250 mls @ 7.5 mls/hr IV TITR MAUDE; Protocol Exam - Physical Exam Narrative exam: Gen. appearance: Patient lying in bed, no apparent distress HEENT: Normocephalic, atraumatic, pupils equally round and reactive to light, unable to do extraocular movement, and no sclericterus,. No JVD or thyromegaly or nodule,neck supple, no carotid bruit ,mucous membranes dry, no exudate or erythema Heart: S1, S2, regular rate and rhythm Lungs: Crackles, rhonchi bilaterally, breathing comfortable Abdomen: Positive bowel sounds, nontender, nondistended, no organomegaly Extremity: No edema, cyanosis, clubbing Skin: No rash, nodules, warm, dry Neuro: lethargic - Constitutional Vitals: Temp Pulse Resp BP Pulse Ox 93 H 28 H 78/40 94 11/10/17 22:25 11/10/17 22:25 11/10/17 22:25 11/10/17 22:25 Results - Labs CBC & Chem 7: 11/12/17 18:05 11/12/17 21:30 Labs: Abnormal lab results 11/10/17 11/10/17 11/10/17 Range/Units 19:54 20:18 20:18 WBC 39.8 H (4.5-11.0) K/mm3 RBC 3.59 L (3.65-5.03) M/mm3 MCV 117 H (79-97) fl MCHC 27 L (30-34) % Plt Count 469 H (140-440) K/mm3 Seg Neuts % (Manual) 93.5 H (40.0-70.0) % Lymphocytes % (Manual) 3.0 L (13.4-35.0) % Seg Neutrophils # Man 37.2 H (1.8-7.7) K/mm3 Monocytes # (Manual) 1.0 H (0.0-0.8) K/mm3 Basophils # (Manual) 0.2 H (0.0-0.1) K/mm3 PT 18.8 H (12.2-14.9) Sec. INR 1.48 H (0.87-1.13) VBG pH (7.320-7.420) Sodium (137-145) mmol/L Potassium (3.6-5.0) mmol/L Chloride (98-107) mmol/L Carbon Dioxide (22-30) mmol/L BUN (7-17) mg/dL Creatinine (0.7-1.2) mg/dL Glucose (65-100) mg/dL POC Glucose 488 H (70-105) Lactic Acid (0.7-2.0) mmol/L Calcium (8.4-10.2) mg/dL Phosphorus (2.5-4.5) mg/dL Magnesium (1.7-2.3) mg/dL Total Protein (6.3-8.2) g/dL Albumin (3.9-5) g/dL Urine WBC (Auto) (0.0-6.0) /HPF 11/10/17 11/10/17 11/10/17 Range/Units 20:18 20:18 20:18 WBC (4.5-11.0) K/mm3 RBC (3.65-5.03) M/mm3 MCV (79-97) fl MCHC (30-34) % Plt Count (140-440) K/mm3 Seg Neuts % (Manual) (40.0-70.0) % Lymphocytes % (Manual) (13.4-35.0) % Seg Neutrophils # Man (1.8-7.7) K/mm3 Monocytes # (Manual) (0.0-0.8) K/mm3 Basophils # (Manual) (0.0-0.1) K/mm3 PT (12.2-14.9) Sec. INR (0.87-1.13) VBG pH 6.763 L* (7.320-7.420) Sodium 125 L (137-145) mmol/L Potassium 7.5 H* (3.6-5.0) mmol/L Chloride 82.9 L (98-107) mmol/L Carbon Dioxide 2 L* (22-30) mmol/L BUN 33 H (7-17) mg/dL Creatinine 1.8 H (0.7-1.2) mg/dL Glucose 976 H* (65-100) mg/dL POC Glucose (70-105) Lactic Acid 3.00 H* (0.7-2.0) mmol/L Calcium 7.6 L (8.4-10.2) mg/dL Phosphorus (2.5-4.5) mg/dL Magnesium (1.7-2.3) mg/dL Total Protein 6.2 L (6.3-8.2) g/dL Albumin 3.5 L (3.9-5) g/dL Urine WBC (Auto) (0.0-6.0) /HPF 11/10/17 11/10/17 11/10/17 Range/Units 20:35 20:35 22:07 WBC (4.5-11.0) K/mm3 RBC (3.65-5.03) M/mm3 MCV (79-97) fl MCHC (30-34) % Plt Count (140-440) K/mm3 Seg Neuts % (Manual) (40.0-70.0) % Lymphocytes % (Manual) (13.4-35.0) % Seg Neutrophils # Man (1.8-7.7) K/mm3 Monocytes # (Manual) (0.0-0.8) K/mm3 Basophils # (Manual) (0.0-0.1) K/mm3 PT (12.2-14.9) Sec. INR (0.87-1.13) VBG pH (7.320-7.420) Sodium 124 L (137-145) mmol/L Potassium 7.6 H* (3.6-5.0) mmol/L Chloride 82.0 L (98-107) mmol/L Carbon Dioxide 3 L* (22-30) mmol/L BUN 33 H (7-17) mg/dL Creatinine 1.8 H (0.7-1.2) mg/dL Glucose 977 H* (65-100) mg/dL POC Glucose 481 H (70-105) Lactic Acid (0.7-2.0) mmol/L Calcium 7.8 L (8.4-10.2) mg/dL Phosphorus 9.40 H (2.5-4.5) mg/dL Magnesium 2.70 H (1.7-2.3) mg/dL Total Protein (6.3-8.2) g/dL Albumin (3.9-5) g/dL Urine WBC (Auto) (0.0-6.0) /HPF 11/10/17 11/10/17 Range/Units 23:29 Unknown WBC (4.5-11.0) K/mm3 RBC (3.65-5.03) M/mm3 MCV (79-97) fl MCHC (30-34) % Plt Count (140-440) K/mm3 Seg Neuts % (Manual) (40.0-70.0) % Lymphocytes % (Manual) (13.4-35.0) % Seg Neutrophils # Man (1.8-7.7) K/mm3 Monocytes # (Manual) (0.0-0.8) K/mm3 Basophils # (Manual) (0.0-0.1) K/mm3 PT (12.2-14.9) Sec. INR (0.87-1.13) VBG pH (7.320-7.420) Sodium (137-145) mmol/L Potassium (3.6-5.0) mmol/L Chloride (98-107) mmol/L Carbon Dioxide (22-30) mmol/L BUN (7-17) mg/dL Creatinine (0.7-1.2) mg/dL Glucose (65-100) mg/dL POC Glucose 481 H (70-105) Lactic Acid (0.7-2.0) mmol/L Calcium (8.4-10.2) mg/dL Phosphorus (2.5-4.5) mg/dL Magnesium (1.7-2.3) mg/dL Total Protein (6.3-8.2) g/dL Albumin (3.9-5) g/dL Urine WBC (Auto) 8.0 H (0.0-6.0) /HPF - Imaging and Cardiology Chest x-ray: report reviewed CT scan - abdomen: report reviewed CT scan - pelvis: report reviewed Assessment and Plan Assessment DKA severe Septic shock Severe metabolic acidosis Acute renal failure Bilateral pneumonia Hyperkalemia Encephalopathy, metabolic Admit to medicine Start insulin drip, IV fluid Monitorer serial chemistry, blood sugar Consult critical care, give bicarbonate now Renal was consulted to see the patient Start IV Zosyn, vancomycin, Levophed drip start DVT prophylaxis, check CT head ADDENDUM cODE BLUE Patient arrived in the ICU, became unresponsive She was intubated and ACLS protocol was initiated He is referred to code sheet for details Several rounds of epinephrine was given, she was shocked twice of V. fib Amiodarone bolus and drip started Check cardiac enzymes, echo Consult cardiology, case discussed with Dr Klein-u check ABG Try to reach family without success The high probability of a clinically significant, sudden or life threatening deterioration of the [respiratory, hemodynamic and neurological] system(s) required my full and direct attention, intervention and personal management. The aggregate critical care time was [32] minutes. This time is in addition to time spent performing reported procedures but includes the following: [x] Data Review and interpretation [x] Patient assessment and monitoring of vital signs [x] Documentation [x] Medication orders and management
[2017-11-11] LABS: Calcium 6.8 mg/dL (8.4-10.2)
[2017-11-11] MEDS: ZOSYN/NS 2.25 GM/50ML 2.25 GM/50 ML BAG IV SCH ×4 (00:01→18:23)
--- NOTE | 2017-11-11 00:03 | Consultation ---
History of Present Illness - Reason for Consult Consult date: 11/10/17 acute renal failure, hyponatremia, hyperkalemia, metabolic acidosis - History of Present Illness The patient is a 37 YO female with history significant for DM, HTN, Hypothytoid , Alcohol abuse, Tobacco use and Medical noncompliance who was brought into the ER by the EMS after the patient was found by a family member at home to be extremely lethargic. Unable to get any history from patient and information was obtained from previous documentation. EMS found glucose level above 500. Her initial blood sugar was 976, Sodium 125, Potassium 7.5, Bicarbonate 2, Creatinine 1.8 and Lactic acidosis. Past History Past Medical History: diabetes, hypertension, other (non-compliance) Medications and Allergies Allergies Allergy/AdvReac Type Severity Reaction Status Date / Time No Known Allergies Allergy Verified 08/11/17 19:45 Home Medications Medication Instructions Recorded Confirmed Last Taken Type Insulin NPH/Regular [NovoLIN 70/30] 18 unit SUB-Q BIDDIAB #1 vial 07/07/17 Unknown Rx Levothyroxine 200 mcg PO DAILY #30 07/07/17 Unknown Rx Protonix TAB 40 mg PO DAILY #30 07/07/17 Unknown Rx Active Meds: Active Medications Acetaminophen (Tylenol) 650 mg PO Q4H PRN PRN Reason: Pain MILD(1-3)/Fever >100.5/SCHUSTER Dextrose (D50w (25gm) Syringe) 0 ml IV PRN PRN PRN Reason: Hypoglycemia Enoxaparin Sodium (Lovenox) 30 mg SUB-Q QDAY MAUDE Sodium Chloride (Nacl 0.9% 1000 Ml) 1,000 mls @ 200 mls/hr IV DIRECT MAUDE Insulin Human Regular 100 (units/ Sodium Chloride) 100 mls @ 1 mls/hr IV TITR MAUDE; Protocol Last Titration: 11/10/17 23:15 Dose: 8 units/hr, 8 mls/hr Azithromycin 500 mg/ Sodium (Chloride) 250 mls @ 250 mls/hr IV Q24HR MAUDE Piperacillin Sod/Tazobactam Sod (Zosyn/Ns 2.25 Gm/50ml) 2.25 gm in 50 mls @ 100 mls/hr IV Q6HR MAUDE Last Admin: 11/11/17 00:01 Dose: 100 mls/hr Norepinephrine (Levophed Drip 4 Mg/Ns 250 Ml) 4 mg in 250 mls @ 7.5 mls/hr IV TITR MAUDE; Protocol Dextrose/Sodium Chloride (D5/0.45ns) 1,000 mls @ 150 mls/hr IV DIRECT MAUDE Sodium Chloride (Nacl 0.9% 1000 Ml) 1,000 mls @ 150 mls/hr IV DIRECT MAUDE Ondansetron HCl (Zofran) 4 mg IV Q8H PRN PRN Reason: Nausea And Vomiting Sodium Bicarbonate (Sodium Bicarbonate) 50 meq IV ONCE ONE Stop: 11/10/17 23:58 Sodium Chloride (Sodium Chloride Flush Syringe 10 Ml) 10 ml IV BID MAUDE Sodium Chloride (Sodium Chloride Flush Syringe 10 Ml) 10 ml IV PRN PRN PRN Reason: LINE FLUSH Review of Systems ROS unobtainable: due to mental status Exam - Vital Signs Vital signs: Vital Signs Pulse Resp BP Pulse Ox 72 16 88/31 96 11/10/17 19:58 11/10/17 19:58 11/10/17 19:58 11/10/17 19:58 - General Appearance General appearance: well-developed, appears stated age, other (no distress) EENT: ATNC, PERRL, mucous membranes dry Neck: Present: neck supple, trachea midline Respiratory: Clear to Ascultation Heart: regular, S1S2, no murmurs Gastrointestinal: Present: normoactive bowel sounds. Absent: tenderness Integumentary: no rash, warm and dry, other (1cm wound over the right lower jaw) Neurologic: other (stuporous, not following command, not answering) Musculoskeletal: Present: other (no edema) Results - Lab Results 11/11/17 10:45 11/11/17 07:07 Most recent lab results Calcium 6.8 mg/dL (8.4-10.2) L 11/10/17 23:06 Phosphorus 9.40 mg/dL (2.5-4.5) H 11/10/17 20:35 Magnesium 2.70 mg/dL (1.7-2.3) H 11/10/17 20:35 Assessment and Plan 1. Acute kidney injury: LOC in the setting of volume depletion and DKA. Continue IV fluids. CT abdomen was negative for hydronephrosis. 2. Hyperkalemia: K level improving with treatment. Monitor. 3. Severe metabolic acidosis: DKA and Lactic acidosis. Continue IV fluids and Insulin drip. 4. Hypotension: IV fluids and Levophed. 5. Pseudohyponatremia: Monitor. 6. Encephalopathy. Prognosis is guarded.
[2017-11-11] MEDS ORDERED: SODIUM BICARBONATE IV ONE ×10 (00:05→14:28)
[2017-11-11 00:41] LABS: Calcium 6.9 mg/dL (8.4-10.2)
[2017-11-11] MEDS: LEVOPHED DRIP 4 MG/NS 250 ML 4 MG/250 ML BAG IV SCH ×5 (00:55→09:41)
[2017-11-11] MEDS: HumuLIN R 100 UNITS in NACL 0.9% 99 ML IV SCH ×5 (00:58→21:52)
[2017-11-11] MEDS ORDERED: XYLOCAINE 1%/ EPI 1:100,000 INFILTRATI ONE (01:05)
[2017-11-11] MEDS ORDERED: HALDOL ONE (01:14)
[2017-11-11 01:28] LABS: Calcium 6.8 mg/dL (8.4-10.2)
[2017-11-11] MEDS ORDERED: ATROPINE 0.1% (CARDIAC) ONE ×2 (03:12)
[2017-11-11] MEDS ORDERED: ADRENALIN ONE ×3 (03:12→14:28)
[2017-11-11] MEDS ORDERED: CORDARONE IV ONE ×2 (03:12)
--- NOTE | 2017-11-11 03:12 | XRay Report ---
FINAL REPORT EXAM: XR CHEST 1V AP HISTORY: confirm line placement TECHNIQUE: AP portable view of the chest. PRIORS: Chest x-ray and CT scan performed earlier on the same day. FINDINGS: There is a right central venous catheter in place with tip in the distal SVC. There are bilateral peripheral infiltrates without change. There is no evidence of pneumothorax. The cardiomediastinal silhouette appears normal. The bones and soft tissues are unremarkable. IMPRESSION: Right central venous catheter tip in distal SVC. No evidence of pneumothorax. Stable peripheral infiltrates.
[2017-11-11] MEDS ORDERED: ARTIFICIAL TEARS OPHTH OINT OU PRN (03:57)
[2017-11-11] MEDS ORDERED: VASELINE LIP THERAPY TP PRN (03:57)
[2017-11-11] MEDS ORDERED: VASOSTRICT IV ONE (04:00)
[2017-11-11] MEDS ORDERED: NACL 0.9% 500 ML IV SCH (04:00)
[2017-11-11] MEDS ORDERED: NACL 0.9% IV ONE (04:00)
[2017-11-11] MEDS ORDERED: CORDARONE 900 MG in NACL 0.9% 500 ML 482 ML IV ONE (04:00)
[2017-11-11] MEDS ORDERED: CORDARONE 900 MG in D5W 482 ML IV ONE (04:00)
--- NOTE | 2017-11-11 04:04 | Cat Scan Report ---
FINAL REPORT PROCEDURE: CT HEAD/BRAIN WO CON TECHNIQUE: Computerized tomography of the head was performed without contrast material. HISTORY: ams COMPARISON: No prior studies are available for comparison. FINDINGS: Skull and scalp: Normal. Paranasal sinuses: There is mucosal thickening in the right maxillary sinus.. Ventricles and subarachnoid spaces: There is no hydrocephalus or asymmetry. Ventricles and cortical sulci are appropriate for the patient's age.. Cerebrum: No evidence of hemorrhage, acute infarction or mass . Cerebellum and brainstem: No evidence of hemorrhage, acute infarction or mass. Vasculature: Normal. Comments: None. IMPRESSION: The there is no acute intracranial abnormality.
--- NOTE | 2017-11-11 04:17 | XRay Report ---
FINAL REPORT PROCEDURE: XR CHEST 1V AP TECHNIQUE: Chest radiograph anteroposterior view. CPT 32618 HISTORY: ETT placement COMPARISON: 11/11/2017 FINDINGS: Heart: Normal. Mediastinum/Vessels: Normal. Lungs/Pleural space: Lungs are expanded. There are bilateral peripheral infiltrates unchanged from prior study. There are no effusions or pneumothoraces.. Bony thorax: No acute osseous abnormality. Life support devices: There is an endotracheal tube in the mid trachea. There is a right-sided central venous catheter. The tip is in the superior vena cava.. IMPRESSION: Heart size is normal.. Lungs are expanded. There are bilateral peripheral infiltrates unchanged from prior study. There are no effusions or pneumothoraces.. There is an endotracheal tube in the mid trachea. There is a right-sided central venous catheter. The tip is in the superior vena cava..
[2017-11-11 04:34] LABS: Calcium 6.4 mg/dL (8.4-10.2)
[2017-11-11] MEDS: KCL 20MEQ/100ML 20 MEQ/100 ML BAG IV SCH ×2 (05:57→07:20)
[2017-11-11] MEDS ORDERED: MIDAZOLAM 100 MG in NACL 0.9% 80 ML IV SCH (06:00)
[2017-11-11] MEDS ORDERED: VANCOMYCIN PHARMACY TO DOSE IV SCH (06:00)
[2017-11-11] MEDS ORDERED: K-DUR PO ONE (06:32)
[2017-11-11 07:03] LABS: Calcium 6.2 mg/dL (8.4-10.2)
[2017-11-11 07:20] LABS: Calcium 6.5 mg/dL (8.4-10.2)
[2017-11-11 07:22] LABS: Creatine Kinase MB 19.6 ng/mL (0.0-4.0)
[2017-11-11] MEDS ORDERED: NACL 0.45% 1000 ML 1,000 ML IV SCH ×2 (10:00)
[2017-11-11] MEDS ORDERED: SODIUM BICARBONATE 50 MEQ in D5W 1,000 ML IV SCH (10:00)
[2017-11-11] MEDS ORDERED: NACL 0.9% 500 ML 500 ML IV SCH (10:00)
[2017-11-11] MEDS: SODIUM CHLORIDE FLUSH SYRINGE 10 ML IV SCH ×2 (10:25→22:46)
--- NOTE | 2017-11-11 10:35 | Consultation ---
History of Present Illness Consult date: 11/11/17 Requesting physician: INGRIS DAWN Consult reason: cardiac arrest History of present illness: The pt is a 37 Yo female with a past medical history significant for DM. She is intubated on evaluation with no family at bedside and thus HPI is obtained per the chart. According to EMS, patient was found by a family member at home to be extremely lethargic. EMS called and she had a glucose above 500. Patient has a history of noncompliance with her insulin medication. She was brought to the ED for evaluation and was subsequently diagnosed with DKA, bialteral PNA, septic shock, ARF and hyperkalemia. This AM, upon transfer from ED to CCU, she became unresponsive and developed cardiopulmonary arrest. ACLS protocol was initiated. At one point, she was noted to be in VF and was shocked twice and given several rounds of epinephrine and was initiated on amio gtt. She was intubated and remains intubated, requiring multiple vasopressors. Thallium stress test done 10/11/2016 was negative for ischemia with EF 74%. Past History Past Medical History: diabetes Medications and Allergies Allergies Allergy/AdvReac Type Severity Reaction Status Date / Time No Known Allergies Allergy Verified 08/11/17 19:45 Home Medications Medication Instructions Recorded Confirmed Last Taken Type Insulin NPH/Regular [NovoLIN 70/30] 18 unit SUB-Q BIDDIAB #1 vial 07/07/17 Unknown Rx Levothyroxine 200 mcg PO DAILY #30 07/07/17 Unknown Rx Protonix TAB 40 mg PO DAILY #30 07/07/17 Unknown Rx Active Meds: Active Medications Acetaminophen (Tylenol) 650 mg PO Q4H PRN PRN Reason: Pain MILD(1-3)/Fever >100.5/SCHUSTER Dextrose (D50w (25gm) Syringe) 0 ml IV PRN PRN PRN Reason: Hypoglycemia Enoxaparin Sodium (Lovenox) 30 mg SUB-Q QDAY MAUDE Hydrophilic Ointment (Vaseline Lip Therapy) 1 applic TP Q2HR PRN PRN Reason: Dry Lips Insulin Human Regular 100 (units/ Sodium Chloride) 100 mls @ 1 mls/hr IV TITR MAUDE; Protocol Last Titration: 11/11/17 08:30 Dose: Infused Piperacillin Sod/Tazobactam Sod (Zosyn/Ns 2.25 Gm/50ml) 2.25 gm in 50 mls @ 100 mls/hr IV Q6HR MAUDE Last Admin: 11/11/17 08:21 Dose: 100 mls/hr Norepinephrine (Levophed Drip 4 Mg/Ns 250 Ml) 4 mg in 250 mls @ 7.5 mls/hr IV TITR MAUDE; Protocol Last Admin: 11/11/17 09:41 Dose: 30 mcg/min, 112.5 mls/hr Vancomycin HCl (Vancomycin/Ns 1 Gm/250 Ml) 1 gm in 250 mls @ 167.007 mls/hr IV Q24H MAUDE; Protocol Amiodarone HCl 900 mg/ (Dextrose) 500 mls @ 33.33 mls/hr IV DIRECT MAUDE; Protocol Vasopressin 20 unit/ Sodium (Chloride) 101 mls @ 9.09 mls/hr IV TITR MAUDE; Protocol Midazolam HCl 100 mg/ Sodium (Chloride) 100 mls @ 2 mls/hr IV TITR MAUDE; Protocol Last Admin: 11/11/17 06:30 Dose: 1 mg/hr, 1 mls/hr Sodium Bicarbonate 50 meq/ (Dextrose) 1,050 mls @ 125 mls/hr IV DIRECT MAUDE Norepinephrine 8 mg/ Sodium (Chloride) 250 mls @ 3.75 mls/hr IV TITR MAUDE; Protocol Multi-Ingred Cream/Lotion/Oil/Oint (Artificial Tears Ophth Oint) 1 applic OU Q4HR PRN PRN Reason: Dry Eye(s) Ondansetron HCl (Zofran) 4 mg IV Q8H PRN PRN Reason: Nausea And Vomiting Sodium Chloride (Sodium Chloride Flush Syringe 10 Ml) 10 ml IV BID MAUDE Sodium Chloride (Sodium Chloride Flush Syringe 10 Ml) 10 ml IV PRN PRN PRN Reason: LINE FLUSH Sodium Chloride (Nacl 0.9% 500 Ml) 1 ml IV DIRECT MAUDE Vancomycin HCl (Vancomycin Pharmacy To Dose) 1 each IV PKCONSULT MAUDE Review of Systems ROS unobtainable: due to endotracheal tube, due to mental status Physical Examination Vital Signs Pulse Resp BP Pulse Ox 72 16 88/31 96 11/10/17 19:58 11/10/17 19:58 11/10/17 19:58 11/10/17 19:58 General appearance: other (intubated, nonresponsive) HEENT: Positive: PERRL Cardiac: Positive: Regular Rhythm, S1/S2, Tachycardia Lungs: Positive: Decreased Breath Sounds, Oxygen, Ventilated Respirations Neuro: Positive: Other (intubated, nonresponsive) Extremities: Absent: edema Results 11/10/17 20:18 11/11/17 07:07 Cardiac Enzymes 11/10/17 11/11/17 Range/Units 20:18 07:07 AST 38 (5-40) units/L CK-MB (CK-2) 19.6 H (0.0-4.0) ng/mL Coagulation 11/10/17 Range/Units 20:18 PT 18.8 H (12.2-14.9) Sec. INR 1.48 H (0.87-1.13) CBC 11/10/17 Range/Units 20:18 WBC 39.8 H (4.5-11.0) K/mm3 RBC 3.59 L (3.65-5.03) M/mm3 Hgb 11.5 (10.1-14.3) gm/dl Hct 42.0 (30.3-42.9) % Plt Count 469 H (140-440) K/mm3 Comprehensive Metabolic Panel 11/10/17 11/10/17 11/10/17 Range/Units 20:18 20:35 23:06 Sodium 125 L 124 L 133 L D (137-145) mmol/L Potassium 7.5 H* 7.6 H* 5.6 H D (3.6-5.0) mmol/L Chloride 82.9 L 82.0 L 97.1 L (98-107) mmol/L Carbon Dioxide 2 L* 3 L* 3 L* (22-30) mmol/L BUN 33 H 33 H 32 H (7-17) mg/dL Creatinine 1.8 H 1.8 H 1.6 H (0.7-1.2) mg/dL Glucose 976 H* 977 H* 664 H* (65-100) mg/dL Calcium 7.6 L 7.8 L 6.8 L (8.4-10.2) mg/dL AST 38 (5-40) units/L ALT 14 (7-56) units/L Alkaline Phosphatase 115 (35-129) units/L Total Protein 6.2 L (6.3-8.2) g/dL Albumin 3.5 L (3.9-5) g/dL 11/11/17 11/11/17 11/11/17 Range/Units 00:01 00:46 03:45 Sodium 135 L 138 147 H D (137-145) mmol/L Potassium 5.0 4.5 2.9 L* D (3.6-5.0) mmol/L Chloride 99.8 101.0 105.0 (98-107) mmol/L Carbon Dioxide 3 L* 5 L* 11 L (22-30) mmol/L BUN 32 H 32 H 31 H (7-17) mg/dL Creatinine 1.5 H 1.5 H 1.8 H (0.7-1.2) mg/dL Glucose 579 H* 560 H* 587 H* (65-100) mg/dL Calcium 6.9 L 6.8 L 6.4 L (8.4-10.2) mg/dL AST (5-40) units/L ALT (7-56) units/L Alkaline Phosphatase (35-129) units/L Total Protein (6.3-8.2) g/dL Albumin (3.9-5) g/dL 11/11/17 11/11/17 Range/Units 06:29 07:07 Sodium 149 H 151 H (137-145) mmol/L Potassium 3.0 L 3.0 L (3.6-5.0) mmol/L Chloride 109.5 H 107.5 H (98-107) mmol/L Carbon Dioxide 17 L 11 L (22-30) mmol/L BUN 31 H 31 H (7-17) mg/dL Creatinine 1.7 H 1.8 H (0.7-1.2) mg/dL Glucose 407 H 541 H* (65-100) mg/dL Calcium 6.2 L 6.5 L (8.4-10.2) mg/dL AST (5-40) units/L ALT (7-56) units/L Alkaline Phosphatase (35-129) units/L Total Protein (6.3-8.2) g/dL Albumin (3.9-5) g/dL - Imaging and Cardiology Echo: pending EKG: report reviewed, image reviewed EKG interpretations - Telemetry EKG Rhythm: Sinus Tachycardia - EKG Sinus rhythms and dysrhythmias: sinus tachycardia Assessment and Plan Await echo. Cont amio gtt. Cont supportive measures and wean vent and vasopressors as tolerated. Electrolyte management per primary and nephrology. Recommend maintaining K+ ~ 4.0 and Mg ~2.0. The patient has been seen in conjunction with Dr. Amezcua who agrees with the assessment and plan of care. - Patient Problems (1) Cardiopulmonary arrest with successful resuscitation Current Visit: Yes Status: Acute (2) Cardiac arrest with ventricular fibrillation Current Visit: Yes Status: Acute (3) Acute respiratory failure requiring reintubation Current Visit: Yes Status: Acute (4) Pneumonia Current Visit: Yes Status: Acute (5) Septic shock Current Visit: Yes Status: Acute (6) DKA (diabetic ketoacidoses) Current Visit: Yes Status: Acute (7) Metabolic acidosis Current Visit: Yes Status: Acute (8) Altered mental status Current Visit: Yes Status: Acute (9) Acute renal failure Current Visit: Yes Status: Acute (10) Hyperkalemia Current Visit: Yes Status: Resolved (11) Elevated TSH Current Visit: Yes Status: Acute
--- NOTE | 2017-11-11 10:38 | Consultation ---
History of Present Illness Consult date: 11/11/17 Requesting physician: AUSTIN LAL Reason for consult: other (Severe Sepsis; Acute Hypoxemic Respiratory Failure; ARDS) History of present illness: PULMONARY/CCM CONSULT NOTE (full dictation # [id number]) Please see dictated notes for full details Medications and Allergies Allergies Allergy/AdvReac Type Severity Reaction Status Date / Time No Known Allergies Allergy Verified 08/11/17 19:45 Home Medications Medication Instructions Recorded Confirmed Last Taken Type Insulin NPH/Regular [NovoLIN 70/30] 18 unit SUB-Q BIDDIAB #1 vial 07/07/17 Unknown Rx Levothyroxine 200 mcg PO DAILY #30 07/07/17 Unknown Rx Protonix TAB 40 mg PO DAILY #30 07/07/17 Unknown Rx Active Meds: Active Medications Acetaminophen (Tylenol) 650 mg PO Q4H PRN PRN Reason: Pain MILD(1-3)/Fever >100.5/SCHUSTER Dextrose (D50w (25gm) Syringe) 0 ml IV PRN PRN PRN Reason: Hypoglycemia Enoxaparin Sodium (Lovenox) 30 mg SUB-Q QDAY MAUDE Hydrophilic Ointment (Vaseline Lip Therapy) 1 applic TP Q2HR PRN PRN Reason: Dry Lips Insulin Human Regular 100 (units/ Sodium Chloride) 100 mls @ 1 mls/hr IV TITR MAUDE; Protocol Last Titration: 11/11/17 08:30 Dose: Infused Piperacillin Sod/Tazobactam Sod (Zosyn/Ns 2.25 Gm/50ml) 2.25 gm in 50 mls @ 100 mls/hr IV Q6HR MAUDE Last Admin: 11/11/17 08:21 Dose: 100 mls/hr Norepinephrine (Levophed Drip 4 Mg/Ns 250 Ml) 4 mg in 250 mls @ 7.5 mls/hr IV TITR MAUDE; Protocol Last Admin: 11/11/17 09:41 Dose: 30 mcg/min, 112.5 mls/hr Vancomycin HCl (Vancomycin/Ns 1 Gm/250 Ml) 1 gm in 250 mls @ 167.007 mls/hr IV Q24H MAUDE; Protocol Amiodarone HCl 900 mg/ (Dextrose) 500 mls @ 33.33 mls/hr IV DIRECT MAUDE; Protocol Vasopressin 20 unit/ Sodium (Chloride) 101 mls @ 9.09 mls/hr IV TITR MAUDE; Protocol Midazolam HCl 100 mg/ Sodium (Chloride) 100 mls @ 2 mls/hr IV TITR MAUDE; Protocol Last Admin: 11/11/17 06:30 Dose: 1 mg/hr, 1 mls/hr Sodium Bicarbonate 50 meq/ (Dextrose) 1,050 mls @ 125 mls/hr IV DIRECT MAUDE Norepinephrine 8 mg/ Sodium (Chloride) 250 mls @ 3.75 mls/hr IV TITR MAUDE; Protocol Multi-Ingred Cream/Lotion/Oil/Oint (Artificial Tears Ophth Oint) 1 applic OU Q4HR PRN PRN Reason: Dry Eye(s) Ondansetron HCl (Zofran) 4 mg IV Q8H PRN PRN Reason: Nausea And Vomiting Sodium Chloride (Sodium Chloride Flush Syringe 10 Ml) 10 ml IV BID MAUDE Sodium Chloride (Sodium Chloride Flush Syringe 10 Ml) 10 ml IV PRN PRN PRN Reason: LINE FLUSH Sodium Chloride (Nacl 0.9% 500 Ml) 1 ml IV DIRECT MAUDE Vancomycin HCl (Vancomycin Pharmacy To Dose) 1 each IV PKCONSULT MAUDE Physical Examination Vital signs: Vital Signs Pulse Resp BP Pulse Ox 72 16 88/31 96 11/10/17 19:58 11/10/17 19:58 11/10/17 19:58 11/10/17 19:58 Results - Laboratory Findings CBC and BMP: 11/10/17 20:18 11/11/17 07:07 ABG POC ABG pH 7.175 (7.35-7.45) L 11/11/17 08:52 POC ABG pCO2 45.1 (35-45) H 11/11/17 08:52 POC ABG pO2 33 (80-105) L 11/11/17 08:52 POC ABG HCO3 16.6 11/11/17 08:52 POC ABG Total CO2 18 11/11/17 08:52 POC ABG O2 Sat 48 11/11/17 08:52 PT/INR, D-dimer PT 18.8 Sec. (12.2-14.9) H 11/10/17 20:18 INR 1.48 (0.87-1.13) H 11/10/17 20:18 Abnormal lab findings: Abnormal Labs 11/10/17 11/10/17 11/10/17 19:54 20:18 20:18 WBC 39.8 H RBC 3.59 L MCV 117 H MCHC 27 L Plt Count 469 H Seg Neuts % (Manual) 93.5 H Lymphocytes % (Manual) 3.0 L Seg Neutrophils # Man 37.2 H Monocytes # (Manual) 1.0 H Basophils # (Manual) 0.2 H PT 18.8 H INR 1.48 H POC ABG pH POC ABG pCO2 POC ABG pO2 VBG pH Sodium Potassium Chloride Carbon Dioxide BUN Creatinine Glucose POC Glucose 488 H Lactic Acid Calcium Phosphorus Magnesium Total Creatine Kinase CK-MB (CK-2) Total Protein Albumin TSH Urine WBC (Auto) 11/10/17 11/10/17 11/10/17 20:18 20:18 20:18 WBC RBC MCV MCHC Plt Count Seg Neuts % (Manual) Lymphocytes % (Manual) Seg Neutrophils # Man Monocytes # (Manual) Basophils # (Manual) PT INR POC ABG pH POC ABG pCO2 POC ABG pO2 VBG pH 6.763 L* Sodium 125 L Potassium 7.5 H* Chloride 82.9 L Carbon Dioxide 2 L* BUN 33 H Creatinine 1.8 H Glucose 976 H* POC Glucose Lactic Acid 3.00 H* Calcium 7.6 L Phosphorus Magnesium Total Creatine Kinase CK-MB (CK-2) Total Protein 6.2 L Albumin 3.5 L TSH Urine WBC (Auto) 11/10/17 11/10/17 11/10/17 20:35 20:35 22:07 WBC RBC MCV MCHC Plt Count Seg Neuts % (Manual) Lymphocytes % (Manual) Seg Neutrophils # Man Monocytes # (Manual) Basophils # (Manual) PT INR POC ABG pH POC ABG pCO2 POC ABG pO2 VBG pH Sodium 124 L Potassium 7.6 H* Chloride 82.0 L Carbon Dioxide 3 L* BUN 33 H Creatinine 1.8 H Glucose 977 H* POC Glucose 481 H Lactic Acid Calcium 7.8 L Phosphorus 9.40 H Magnesium 2.70 H Total Creatine Kinase CK-MB (CK-2) Total Protein Albumin TSH Urine WBC (Auto) 11/10/17 11/10/17 11/10/17 23:06 23:06 23:15 WBC RBC MCV MCHC Plt Count Seg Neuts % (Manual) Lymphocytes % (Manual) Seg Neutrophils # Man Monocytes # (Manual) Basophils # (Manual) PT INR POC ABG pH POC ABG pCO2 POC ABG pO2 VBG pH Sodium 133 L D Potassium 5.6 H D Chloride 97.1 L Carbon Dioxide 3 L* BUN 32 H Creatinine 1.6 H Glucose 664 H* POC Glucose Lactic Acid 2.30 H* Calcium 6.8 L Phosphorus Magnesium Total Creatine Kinase CK-MB (CK-2) Total Protein Albumin TSH 15.990 H Urine WBC (Auto) 11/10/17 11/10/17 11/11/17 23:29 Unknown 00:01 WBC RBC MCV MCHC Plt Count Seg Neuts % (Manual) Lymphocytes % (Manual) Seg Neutrophils # Man Monocytes # (Manual) Basophils # (Manual) PT INR POC ABG pH POC ABG pCO2 POC ABG pO2 VBG pH 6.881 L* Sodium Potassium Chloride Carbon Dioxide BUN Creatinine Glucose POC Glucose 481 H Lactic Acid Calcium Phosphorus Magnesium Total Creatine Kinase CK-MB (CK-2) Total Protein Albumin TSH Urine WBC (Auto) 8.0 H 11/11/17 11/11/17 11/11/17 00:01 00:46 00:46 WBC RBC MCV MCHC Plt Count Seg Neuts % (Manual) Lymphocytes % (Manual) Seg Neutrophils # Man Monocytes # (Manual) Basophils # (Manual) PT INR POC ABG pH POC ABG pCO2 POC ABG pO2 VBG pH Sodium 135 L Potassium Chloride Carbon Dioxide 3 L* 5 L* BUN 32 H 32 H Creatinine 1.5 H 1.5 H Glucose 579 H* 560 H* POC Glucose Lactic Acid 2.40 H* Calcium 6.9 L 6.8 L Phosphorus Magnesium Total Creatine Kinase CK-MB (CK-2) Total Protein Albumin TSH Urine WBC (Auto) 11/11/17 11/11/17 11/11/17 00:58 02:19 02:21 WBC RBC MCV MCHC Plt Count Seg Neuts % (Manual) Lymphocytes % (Manual) Seg Neutrophils # Man Monocytes # (Manual) Basophils # (Manual) PT INR POC ABG pH POC ABG pCO2 POC ABG pO2 VBG pH Sodium Potassium Chloride Carbon Dioxide BUN Creatinine Glucose POC Glucose > 500 H < 40 L 457 H Lactic Acid Calcium Phosphorus Magnesium Total Creatine Kinase CK-MB (CK-2) Total Protein Albumin TSH Urine WBC (Auto) 11/11/17 11/11/17 11/11/17 03:31 03:45 03:45 WBC RBC MCV MCHC Plt Count Seg Neuts % (Manual) Lymphocytes % (Manual) Seg Neutrophils # Man Monocytes # (Manual) Basophils # (Manual) PT INR POC ABG pH POC ABG pCO2 POC ABG pO2 VBG pH Sodium 147 H D Potassium 2.9 L* D Chloride Carbon Dioxide 11 L BUN 31 H Creatinine 1.8 H Glucose 587 H* POC Glucose 436 H Lactic Acid 9.50 H* Calcium 6.4 L Phosphorus Magnesium Total Creatine Kinase CK-MB (CK-2) Total Protein Albumin TSH Urine WBC (Auto) 11/11/17 11/11/17 11/11/17 04:16 04:45 05:50 WBC RBC MCV MCHC Plt Count Seg Neuts % (Manual) Lymphocytes % (Manual) Seg Neutrophils # Man Monocytes # (Manual) Basophils # (Manual) PT INR POC ABG pH 7.036 L POC ABG pCO2 POC ABG pO2 66 L VBG pH Sodium Potassium Chloride Carbon Dioxide BUN Creatinine Glucose POC Glucose 495 H > 500 H Lactic Acid Calcium Phosphorus Magnesium Total Creatine Kinase CK-MB (CK-2) Total Protein Albumin TSH Urine WBC (Auto) 11/11/17 11/11/17 11/11/17 06:29 06:29 06:41 WBC RBC MCV MCHC Plt Count Seg Neuts % (Manual) Lymphocytes % (Manual) Seg Neutrophils # Man Monocytes # (Manual) Basophils # (Manual) PT INR POC ABG pH POC ABG pCO2 POC ABG pO2 VBG pH Sodium 149 H Potassium 3.0 L Chloride 109.5 H Carbon Dioxide 17 L BUN 31 H Creatinine 1.7 H Glucose 407 H POC Glucose 387 H Lactic Acid 2.60 H* Calcium 6.2 L Phosphorus Magnesium Total Creatine Kinase CK-MB (CK-2) Total Protein Albumin TSH Urine WBC (Auto) 11/11/17 11/11/17 11/11/17 07:05 07:07 07:07 WBC RBC MCV MCHC Plt Count Seg Neuts % (Manual) Lymphocytes % (Manual) Seg Neutrophils # Man Monocytes # (Manual) Basophils # (Manual) PT INR POC ABG pH POC ABG pCO2 POC ABG pO2 VBG pH Sodium 151 H Potassium 3.0 L Chloride 107.5 H Carbon Dioxide 11 L BUN 31 H Creatinine 1.8 H Glucose 541 H* POC Glucose 378 H Lactic Acid Calcium 6.5 L Phosphorus Magnesium Total Creatine Kinase 686 H CK-MB (CK-2) 19.6 H Total Protein Albumin TSH Urine WBC (Auto) 11/11/17 08:52 WBC RBC MCV MCHC Plt Count Seg Neuts % (Manual) Lymphocytes % (Manual) Seg Neutrophils # Man Monocytes # (Manual) Basophils # (Manual) PT INR POC ABG pH 7.175 L POC ABG pCO2 45.1 H POC ABG pO2 33 L VBG pH Sodium Potassium Chloride Carbon Dioxide BUN Creatinine Glucose POC Glucose Lactic Acid Calcium Phosphorus Magnesium Total Creatine Kinase CK-MB (CK-2) Total Protein Albumin TSH Urine WBC (Auto)
[2017-11-11 11:06] LABS: Hematocrit 40.9 % (30.3-42.9); Hemoglobin 14.1 gm/dl (10.1-14.3); Mean Corpuscular HGB Conc 34 % (30-34); Mean Corpuscular Hemoglobin 33 pg (28-32); Mean Corpuscular Volume 95 fl (79-97); Platelet Count 294 K/mm3 (140-440); Red Blood Count 4.29 M/mm3 (3.65-5.03); Red Cell Distribution Width 13.7 % (13.2-15.2)
[2017-11-11 11:19] LABS: Creatine Kinase MB 31.9 ng/mL (0.0-4.0)
--- NOTE | 2017-11-11 11:23 | Progress Note ---
Assessment and Plan 1. Acute kidney injury: LOC in the setting of volume depletion and DKA. Continue IV fluids. CT abdomen was negative for hydronephrosis. 2. Hypokalemia: Replete K. Monitor. 3. Severe metabolic acidosis: DKA and Lactic acidosis. Continue IV fluids and Insulin drip. 4. Septic shock: On Levophed and Vasopressin. 5. Hypernatremia: Hypotonic IV fluids and water flushes through the NG tube. 6. Respiratory failure: On vent. 7. S/p Cardiac arrest. 8. Encephalopathy. Prognosis is guarded. Subjective Date of service: 11/11/17 Interval history: S/p Cardiac arrest. Objective - Vital Signs Vital signs: Vital Signs - 12hr 11/10/17 11/10/17 11/10/17 23:25 23:27 23:29 Temperature Pulse Rate 91 H 92 H 92 H Pulse Rate [ From Monitor] Respiratory 31 H 30 H 30 H Rate Blood Pressure 81/41 81/41 81/41 O2 Sat by Pulse 88 88 88 Oximetry 11/10/17 11/10/17 11/10/17 23:30 23:31 23:32 Temperature Pulse Rate 93 H 93 H 93 H Pulse Rate [ From Monitor] Respiratory 29 H 30 H 28 H Rate Blood Pressure 71/35 71/35 86/60 O2 Sat by Pulse 89 88 89 Oximetry 11/10/17 11/10/17 11/10/17 23:33 23:35 23:37 Temperature Pulse Rate 99 H 99 H 93 H Pulse Rate [ From Monitor] Respiratory 30 H 34 H 32 H Rate Blood Pressure 71/35 71/35 71/35 O2 Sat by Pulse 89 90 89 Oximetry 11/10/17 11/10/17 11/10/17 23:39 23:41 23:43 Temperature Pulse Rate 97 H 92 H 91 H Pulse Rate [ From Monitor] Respiratory 29 H 27 H 27 H Rate Blood Pressure 71/35 71/35 71/35 O2 Sat by Pulse 87 88 87 Oximetry 11/10/17 11/10/17 11/10/17 23:45 23:47 23:49 Temperature Pulse Rate 90 92 H 92 H Pulse Rate [ From Monitor] Respiratory 27 H 30 H 25 H Rate Blood Pressure 71/35 71/35 71/35 O2 Sat by Pulse 86 84 85 Oximetry 11/10/17 11/10/17 11/10/17 23:51 23:53 23:55 Temperature Pulse Rate 92 H 91 H 97 H Pulse Rate [ From Monitor] Respiratory 33 H 28 H 22 Rate Blood Pressure 71/35 71/35 71/35 O2 Sat by Pulse 87 89 89 Oximetry 11/10/17 11/11/17 11/11/17 23:57 00:15 00:17 Temperature Pulse Rate 67 95 H 97 H Pulse Rate [ From Monitor] Respiratory 29 H 30 H 32 H Rate Blood Pressure 71/35 65/44 65/44 O2 Sat by Pulse 89 89 90 Oximetry 11/11/17 11/11/17 11/11/17 00:19 00:21 00:23 Temperature Pulse Rate 89 102 H 102 H Pulse Rate [ From Monitor] Respiratory 29 H 29 H 36 H Rate Blood Pressure 65/44 65/44 65/44 O2 Sat by Pulse 89 87 89 Oximetry 11/11/17 11/11/17 11/11/17 00:25 00:27 00:29 Temperature Pulse Rate 98 H 99 H 95 H Pulse Rate [ From Monitor] Respiratory 29 H 33 H 29 H Rate Blood Pressure 65/44 65/44 65/44 O2 Sat by Pulse 87 88 88 Oximetry 11/11/17 11/11/17 11/11/17 00:30 00:31 00:33 Temperature Pulse Rate 86 86 98 H Pulse Rate [ From Monitor] Respiratory 33 H 30 H 25 H Rate Blood Pressure 64/28 64/28 64/28 O2 Sat by Pulse 86 87 87 Oximetry 11/11/17 11/11/17 11/11/17 00:35 00:37 00:39 Temperature Pulse Rate 97 H 96 H 94 H Pulse Rate [ From Monitor] Respiratory 28 H 32 H 24 Rate Blood Pressure 64/28 64/28 64/28 O2 Sat by Pulse 87 87 87 Oximetry 11/11/17 11/11/17 11/11/17 00:41 00:43 00:45 Temperature Pulse Rate 91 H Pulse Rate [ From Monitor] Respiratory 24 Rate Blood Pressure 64/28 64/28 64/28 O2 Sat by Pulse 84 85 86 Oximetry 11/11/17 11/11/17 11/11/17 00:47 00:49 00:51 Temperature Pulse Rate 56 L 60 Pulse Rate [ From Monitor] Respiratory 15 Rate Blood Pressure 64/28 64/28 64/28 O2 Sat by Pulse 88 92 92 Oximetry 11/11/17 11/11/17 11/11/17 00:53 00:55 00:57 Temperature Pulse Rate 76 112 H 104 H Pulse Rate [ From Monitor] Respiratory 16 19 19 Rate Blood Pressure 64/28 64/28 64/28 O2 Sat by Pulse 92 93 93 Oximetry 11/11/17 11/11/17 11/11/17 00:59 01:00 01:01 Temperature Pulse Rate 94 H 168 H 84 Pulse Rate [ From Monitor] Respiratory 19 Rate Blood Pressure 64/28 61/33 61/33 O2 Sat by Pulse 92 92 92 Oximetry 11/11/17 11/11/17 11/11/17 01:03 01:04 01:05 Temperature Pulse Rate 100 H Pulse Rate [ From Monitor] Respiratory 30 H 26 H Rate Blood Pressure 61/33 61/33 O2 Sat by Pulse 90 95 91 Oximetry 11/11/17 11/11/17 11/11/17 01:06 01:07 01:09 Temperature Pulse Rate 101 H 100 H Pulse Rate [ From Monitor] Respiratory 29 H 28 H Rate Blood Pressure 61/33 61/33 61/33 O2 Sat by Pulse 90 90 89 Oximetry 11/11/17 11/11/17 11/11/17 01:11 01:13 01:15 Temperature Pulse Rate 99 H 101 H 100 H Pulse Rate [ From Monitor] Respiratory 21 28 H 33 H Rate Blood Pressure 61/33 61/33 61/33 O2 Sat by Pulse 89 91 90 Oximetry 11/11/17 11/11/17 11/11/17 01:17 01:19 01:21 Temperature Pulse Rate 101 H 101 H Pulse Rate [ From Monitor] Respiratory 28 H 23 Rate Blood Pressure 61/33 69/36 72/36 O2 Sat by Pulse 91 91 91 Oximetry 11/11/17 11/11/17 11/11/17 01:22 01:23 01:25 Temperature Pulse Rate 102 H Pulse Rate [ From Monitor] Respiratory 29 H Rate Blood Pressure 72/36 72/36 83/35 O2 Sat by Pulse 89 87 85 Oximetry 11/11/17 11/11/17 11/11/17 01:27 01:28 01:29 Temperature Pulse Rate 106 H Pulse Rate [ From Monitor] Respiratory 29 H Rate Blood Pressure 83/35 87/36 87/36 O2 Sat by Pulse 87 90 89 Oximetry 11/11/17 11/11/17 11/11/17 01:31 01:33 01:34 Temperature Pulse Rate 113 H 102 H 104 H Pulse Rate [ From Monitor] Respiratory 23 26 H 31 H Rate Blood Pressure 78/42 78/42 80/40 O2 Sat by Pulse 88 88 90 Oximetry 11/11/17 11/11/17 11/11/17 01:35 01:37 01:39 Temperature Pulse Rate Pulse Rate [ From Monitor] Respiratory Rate Blood Pressure 80/40 83/44 83/44 O2 Sat by Pulse 90 89 89 Oximetry 11/11/17 11/11/17 11/11/17 01:40 01:41 01:43 Temperature Pulse Rate 109 H Pulse Rate [ From Monitor] Respiratory 28 H Rate Blood Pressure 72/38 72/38 73/33 O2 Sat by Pulse 88 89 90 Oximetry 11/11/17 11/11/17 11/11/17 01:45 01:46 01:47 Temperature Pulse Rate Pulse Rate [ From Monitor] Respiratory 27 H 28 H Rate Blood Pressure 79/38 79/38 61/33 O2 Sat by Pulse 88 87 88 Oximetry 11/11/17 11/11/17 11/11/17 01:49 01:51 01:52 Temperature Pulse Rate 129 H 108 H Pulse Rate [ From Monitor] Respiratory 20 37 H 32 H Rate Blood Pressure 81/32 81/32 79/41 O2 Sat by Pulse 91 92 83 L Oximetry 11/11/17 11/11/17 11/11/17 01:53 01:55 01:57 Temperature Pulse Rate 102 H 103 H 102 H Pulse Rate [ From Monitor] Respiratory 32 H 29 H 30 H Rate Blood Pressure 79/41 89/49 89/49 O2 Sat by Pulse 92 89 89 Oximetry 11/11/17 11/11/17 11/11/17 01:58 01:59 02:01 Temperature Pulse Rate 102 H 102 H 103 H Pulse Rate [ From Monitor] Respiratory 28 H 31 H 25 H Rate Blood Pressure 89/45 89/45 99/49 O2 Sat by Pulse 89 89 87 Oximetry 11/11/17 11/11/17 11/11/17 02:03 02:04 02:05 Temperature Pulse Rate Pulse Rate [ From Monitor] Respiratory 30 H 29 H Rate Blood Pressure 88/49 88/49 88/49 O2 Sat by Pulse 89 88 90 Oximetry 11/11/17 11/11/17 11/11/17 02:07 02:09 02:10 Temperature Pulse Rate 105 H 105 H Pulse Rate [ From Monitor] Respiratory 24 29 H Rate Blood Pressure 83/45 83/45 86/44 O2 Sat by Pulse 88 88 88 Oximetry 11/11/17 11/11/17 11/11/17 02:11 02:13 02:14 Temperature Pulse Rate Pulse Rate [ From Monitor] Respiratory Rate Blood Pressure 86/44 91/49 92/47 O2 Sat by Pulse 87 88 86 Oximetry 11/11/17 11/11/17 11/11/17 02:15 04:08 04:45 Temperature Pulse Rate 110 H 113 H Pulse Rate [ From Monitor] Respiratory Rate Blood Pressure 92/47 94/59 91/59 O2 Sat by Pulse 92 86 Oximetry 11/11/17 11/11/17 11/11/17 05:00 05:09 05:11 Temperature Pulse Rate 114 H 115 H Pulse Rate [ 100 H From Monitor] Respiratory 33 H 31 H 30 H Rate Blood Pressure O2 Sat by Pulse 85 85 85 Oximetry 11/11/17 11/11/17 11/11/17 05:21 05:31 05:41 Temperature Pulse Rate 114 H 116 H 117 H Pulse Rate [ From Monitor] Respiratory 32 H 30 H 33 H Rate Blood Pressure 90/48 113/35 113/35 O2 Sat by Pulse 83 L 79 L 78 L Oximetry 11/11/17 11/11/17 11/11/17 05:51 06:01 07:53 Temperature Pulse Rate 117 H 116 H 111 H Pulse Rate [ From Monitor] Respiratory 34 H 35 H Rate Blood Pressure 110/67 110/67 83/47 O2 Sat by Pulse 77 L 100 70 L Oximetry 11/11/17 08:00 Temperature 98.2 F Pulse Rate Pulse Rate [ From Monitor] Respiratory Rate Blood Pressure O2 Sat by Pulse Oximetry - General Appearance General appearance: well-developed, appears stated age, intubated, other (on vent, FiO2 100%) EENT: ATNC, PERRL, mucous membranes dry Neck: supple Respiratory: Present: Clear to Ascultation Cardiology: regular, tachycardia, S1S2, no murmurs Gastrointestinal: normoactive bowel sounds, no tenderness Integumentary: no rash Neurologic: other (opens eyes) Musculoskeletal: other (no edema) - Lab 11/11/17 10:45 11/11/17 20:25 Most recent lab results Calcium 6.5 mg/dL (8.4-10.2) L 11/11/17 07:07 Phosphorus 9.40 mg/dL (2.5-4.5) H 11/10/17 20:35 Magnesium 2.70 mg/dL (1.7-2.3) H 11/10/17 20:35
[2017-11-11 11:33] LABS: Chol/HDL Ratio 6.53 %; HDL Cholesterol 26 mg/dL (40-59); LDL Cholesterol,Direct TNR mg/dL (50-130)
[2017-11-11] MEDS: LEVOPHED 8 MG in NACL 0.9% 250ML 242 ML IV SCH ×3 (12:00→20:17)
--- NOTE | 2017-11-11 12:16 | Progress Note ---
Assessment and Plan s/p cardiorespiratory arrest - She was intubated and ACLS protocol was initiated - likely from Severe DKA and severe septic shock - consult cardiology, on amioderone drip - obtain 2decho, trend troponin DKA - Continue insulin drip, BMP every 4 hours - Placed on DKA protocol severe Septic shock - Continue to trend lactic acid, continue vancomycin and Zosyn for now - Patient currently on Levophed and dopamine - We'll change dopamine drip to epinephrine - Critical care and ID has been consulted Severe metabolic acidosis - due to DKA, cont insulin drip and BMP every 4 hours Acute renal failure - Continue IV fluid, nephrology consulted Bilateral pneumonia - Continue antibiotic we'll follow cultures Hyperkalemia, status post Kayexalate Hypokalemia, will cont to replete Encephalopathy, metabolic - cont frequent neuro check - obtain CT head Cont DVT prophylaxis, check CT head Updated family at bedside Full code The high probability of a clinically significant, sudden or life threatening deterioration of the [multiple] system(s) required my full and direct attention , intervention and personal management. The aggregate critical care time was [50 ] minutes. This time is in addition to time spent performing reported procedures but includes the following: [x] Data Review and interpretation [x] Patient assessment and monitoring of vital signs [x] Documentation [x] Medication orders and management Hospitalist Physical exam: GENERAL: well-developed WF lying on bed appeared unresponsive, on vent HEENT: Normocephalic. Atraumatic. No conjunctival congestion or icterus. Patient has dry mucous membranes. NECK: Supple. Trachea midline. ET tube on place CHEST/LUNGS: Clear to auscultated bilaterally, breathing with Vent. No wheezes crackles or rhonchi. HEART/CARDIOVASCULAR: tachycardic. S1 and S2 positive. ABDOMEN: Abdomen is soft, nontender. Patient has hypoactive bowel sounds. SKIN: There is no rash. Warm and dry. cold NEURO: does not Follow command. unresponsive MUSCULOSKELETAL: No joint effusion or tenderness. EXTRIMITY: No edema, no cyanosis or clubbing. PSYCH: unable to assess Subjective Date of service: 11/11/17 Interval history: Pt seen and examined updated family and discussed about prognosis Objective - Constitutional Vitals: Vital Signs - 12hr 11/11/17 11/11/17 11/11/17 00:17 00:19 00:21 Temperature Pulse Rate 97 H 89 102 H Pulse Rate [ From Monitor] Respiratory 32 H 29 H 29 H Rate Blood Pressure 65/44 65/44 65/44 O2 Sat by Pulse 90 89 87 Oximetry 11/11/17 11/11/17 11/11/17 00:23 00:25 00:27 Temperature Pulse Rate 102 H 98 H 99 H Pulse Rate [ From Monitor] Respiratory 36 H 29 H 33 H Rate Blood Pressure 65/44 65/44 65/44 O2 Sat by Pulse 89 87 88 Oximetry 11/11/17 11/11/17 11/11/17 00:29 00:30 00:31 Temperature Pulse Rate 95 H 86 86 Pulse Rate [ From Monitor] Respiratory 29 H 33 H 30 H Rate Blood Pressure 65/44 64/28 64/28 O2 Sat by Pulse 88 86 87 Oximetry 11/11/17 11/11/17 11/11/17 00:33 00:35 00:37 Temperature Pulse Rate 98 H 97 H 96 H Pulse Rate [ From Monitor] Respiratory 25 H 28 H 32 H Rate Blood Pressure 64/28 64/28 64/28 O2 Sat by Pulse 87 87 87 Oximetry 11/11/17 11/11/17 11/11/17 00:39 00:41 00:43 Temperature Pulse Rate 94 H 91 H Pulse Rate [ From Monitor] Respiratory 24 24 Rate Blood Pressure 64/28 64/28 64/28 O2 Sat by Pulse 87 84 85 Oximetry 11/11/17 11/11/17 11/11/17 00:45 00:47 00:49 Temperature Pulse Rate 56 L 60 Pulse Rate [ From Monitor] Respiratory 15 Rate Blood Pressure 64/28 64/28 64/28 O2 Sat by Pulse 86 88 92 Oximetry 11/11/17 11/11/17 11/11/17 00:51 00:53 00:55 Temperature Pulse Rate 76 112 H Pulse Rate [ From Monitor] Respiratory 16 19 Rate Blood Pressure 64/28 64/28 64/28 O2 Sat by Pulse 92 92 93 Oximetry 11/11/17 11/11/17 11/11/17 00:57 00:59 01:00 Temperature Pulse Rate 104 H 94 H 168 H Pulse Rate [ From Monitor] Respiratory 19 19 Rate Blood Pressure 64/28 64/28 61/33 O2 Sat by Pulse 93 92 92 Oximetry 11/11/17 11/11/17 11/11/17 01:01 01:03 01:04 Temperature Pulse Rate 84 Pulse Rate [ From Monitor] Respiratory 30 H Rate Blood Pressure 61/33 61/33 O2 Sat by Pulse 92 90 95 Oximetry 11/11/17 11/11/17 11/11/17 01:05 01:06 01:07 Temperature Pulse Rate 100 H 101 H 100 H Pulse Rate [ From Monitor] Respiratory 26 H 29 H 28 H Rate Blood Pressure 61/33 61/33 61/33 O2 Sat by Pulse 91 90 90 Oximetry 11/11/17 11/11/17 11/11/17 01:09 01:11 01:13 Temperature Pulse Rate 99 H 101 H Pulse Rate [ From Monitor] Respiratory 21 28 H Rate Blood Pressure 61/33 61/33 61/33 O2 Sat by Pulse 89 89 91 Oximetry 11/11/17 11/11/17 11/11/17 01:15 01:17 01:19 Temperature Pulse Rate 100 H 101 H 101 H Pulse Rate [ From Monitor] Respiratory 33 H 28 H 23 Rate Blood Pressure 61/33 61/33 69/36 O2 Sat by Pulse 90 91 91 Oximetry 11/11/17 11/11/17 11/11/17 01:21 01:22 01:23 Temperature Pulse Rate Pulse Rate [ From Monitor] Respiratory Rate Blood Pressure 72/36 72/36 72/36 O2 Sat by Pulse 91 89 87 Oximetry 11/11/17 11/11/17 11/11/17 01:25 01:27 01:28 Temperature Pulse Rate 102 H 106 H Pulse Rate [ From Monitor] Respiratory 29 H 29 H Rate Blood Pressure 83/35 83/35 87/36 O2 Sat by Pulse 85 87 90 Oximetry 11/11/17 11/11/17 11/11/17 01:29 01:31 01:33 Temperature Pulse Rate 113 H 102 H Pulse Rate [ From Monitor] Respiratory 23 26 H Rate Blood Pressure 87/36 78/42 78/42 O2 Sat by Pulse 89 88 88 Oximetry 11/11/17 11/11/17 11/11/17 01:34 01:35 01:37 Temperature Pulse Rate 104 H Pulse Rate [ From Monitor] Respiratory 31 H Rate Blood Pressure 80/40 80/40 83/44 O2 Sat by Pulse 90 90 89 Oximetry 11/11/17 11/11/17 11/11/17 01:39 01:40 01:41 Temperature Pulse Rate Pulse Rate [ From Monitor] Respiratory Rate Blood Pressure 83/44 72/38 72/38 O2 Sat by Pulse 89 88 89 Oximetry 11/11/17 11/11/17 11/11/17 01:43 01:45 01:46 Temperature Pulse Rate 109 H Pulse Rate [ From Monitor] Respiratory 28 H 27 H Rate Blood Pressure 73/33 79/38 79/38 O2 Sat by Pulse 90 88 87 Oximetry 11/11/17 11/11/17 11/11/17 01:47 01:49 01:51 Temperature Pulse Rate 129 H Pulse Rate [ From Monitor] Respiratory 28 H 20 37 H Rate Blood Pressure 61/33 81/32 81/32 O2 Sat by Pulse 88 91 92 Oximetry 11/11/17 11/11/17 11/11/17 01:52 01:53 01:55 Temperature Pulse Rate 108 H 102 H 103 H Pulse Rate [ From Monitor] Respiratory 32 H 32 H 29 H Rate Blood Pressure 79/41 79/41 89/49 O2 Sat by Pulse 83 L 92 89 Oximetry 11/11/17 11/11/17 11/11/17 01:57 01:58 01:59 Temperature Pulse Rate 102 H 102 H 102 H Pulse Rate [ From Monitor] Respiratory 30 H 28 H 31 H Rate Blood Pressure 89/49 89/45 89/45 O2 Sat by Pulse 89 89 89 Oximetry 11/11/17 11/11/17 11/11/17 02:01 02:03 02:04 Temperature Pulse Rate 103 H Pulse Rate [ From Monitor] Respiratory 25 H 30 H 29 H Rate Blood Pressure 99/49 88/49 88/49 O2 Sat by Pulse 87 89 88 Oximetry 11/11/17 11/11/17 11/11/17 02:05 02:07 02:09 Temperature Pulse Rate 105 H 105 H Pulse Rate [ From Monitor] Respiratory 24 29 H Rate Blood Pressure 88/49 83/45 83/45 O2 Sat by Pulse 90 88 88 Oximetry 11/11/17 11/11/17 11/11/17 02:10 02:11 02:13 Temperature Pulse Rate Pulse Rate [ From Monitor] Respiratory Rate Blood Pressure 86/44 86/44 91/49 O2 Sat by Pulse 88 87 88 Oximetry 11/11/17 11/11/17 11/11/17 02:14 02:15 04:08 Temperature Pulse Rate 110 H Pulse Rate [ From Monitor] Respiratory Rate Blood Pressure 92/47 92/47 94/59 O2 Sat by Pulse 86 92 Oximetry 11/11/17 11/11/17 11/11/17 04:45 05:00 05:09 Temperature Pulse Rate 113 H 114 H Pulse Rate [ 100 H From Monitor] Respiratory 33 H 31 H Rate Blood Pressure 91/59 O2 Sat by Pulse 86 85 85 Oximetry 11/11/17 11/11/17 11/11/17 05:11 05:21 05:31 Temperature Pulse Rate 115 H 114 H 116 H Pulse Rate [ From Monitor] Respiratory 30 H 32 H 30 H Rate Blood Pressure 90/48 113/35 O2 Sat by Pulse 85 83 L 79 L Oximetry 11/11/17 11/11/17 11/11/17 05:41 05:51 06:01 Temperature Pulse Rate 117 H 117 H 116 H Pulse Rate [ From Monitor] Respiratory 33 H 34 H 35 H Rate Blood Pressure 113/35 110/67 110/67 O2 Sat by Pulse 78 L 77 L 100 Oximetry 11/11/17 11/11/17 07:53 08:00 Temperature 98.2 F Pulse Rate 111 H Pulse Rate [ From Monitor] Respiratory Rate Blood Pressure 83/47 O2 Sat by Pulse 70 L Oximetry - Labs CBC & Chem 7: 11/11/17 10:45 11/11/17 16:08 Labs: Abnormal lab results 11/10/17 11/10/17 11/10/17 Range/Units 19:54 20:18 20:18 WBC 39.8 H (4.5-11.0) K/mm3 RBC 3.59 L (3.65-5.03) M/mm3 MCV 117 H (79-97) fl MCH (28-32) pg MCHC 27 L (30-34) % Plt Count 469 H (140-440) K/mm3 Seg Neuts % (Manual) 93.5 H (40.0-70.0) % Lymphocytes % (Manual) 3.0 L (13.4-35.0) % Seg Neutrophils # Man 37.2 H (1.8-7.7) K/mm3 Monocytes # (Manual) 1.0 H (0.0-0.8) K/mm3 Basophils # (Manual) 0.2 H (0.0-0.1) K/mm3 PT 18.8 H (12.2-14.9) Sec. INR 1.48 H (0.87-1.13) POC ABG pH (7.35-7.45) POC ABG pCO2 (35-45) POC ABG pO2 (80-105) VBG pH (7.320-7.420) Sodium (137-145) mmol/L Potassium (3.6-5.0) mmol/L Chloride (98-107) mmol/L Carbon Dioxide (22-30) mmol/L BUN (7-17) mg/dL Creatinine (0.7-1.2) mg/dL Glucose (65-100) mg/dL POC Glucose 488 H (70-105) Lactic Acid (0.7-2.0) mmol/L Calcium (8.4-10.2) mg/dL Phosphorus (2.5-4.5) mg/dL Magnesium (1.7-2.3) mg/dL Total Creatine Kinase (30-135) units/L CK-MB (CK-2) (0.0-4.0) ng/mL Troponin T (0.00-0.029) ng/mL Total Protein (6.3-8.2) g/dL Albumin (3.9-5) g/dL Triglycerides (2-149) mg/dL HDL Cholesterol (40-59) mg/dL TSH (0.270-4.200) mlU/mL Urine WBC (Auto) (0.0-6.0) /HPF 11/10/17 11/10/17 11/10/17 Range/Units 20:18 20:18 20:18 WBC (4.5-11.0) K/mm3 RBC (3.65-5.03) M/mm3 MCV (79-97) fl MCH (28-32) pg MCHC (30-34) % Plt Count (140-440) K/mm3 Seg Neuts % (Manual) (40.0-70.0) % Lymphocytes % (Manual) (13.4-35.0) % Seg Neutrophils # Man (1.8-7.7) K/mm3 Monocytes # (Manual) (0.0-0.8) K/mm3 Basophils # (Manual) (0.0-0.1) K/mm3 PT (12.2-14.9) Sec. INR (0.87-1.13) POC ABG pH (7.35-7.45) POC ABG pCO2 (35-45) POC ABG pO2 (80-105) VBG pH 6.763 L* (7.320-7.420) Sodium 125 L (137-145) mmol/L Potassium 7.5 H* (3.6-5.0) mmol/L Chloride 82.9 L (98-107) mmol/L Carbon Dioxide 2 L* (22-30) mmol/L BUN 33 H (7-17) mg/dL Creatinine 1.8 H (0.7-1.2) mg/dL Glucose 976 H* (65-100) mg/dL POC Glucose (70-105) Lactic Acid 3.00 H* (0.7-2.0) mmol/L Calcium 7.6 L (8.4-10.2) mg/dL Phosphorus (2.5-4.5) mg/dL Magnesium (1.7-2.3) mg/dL Total Creatine Kinase (30-135) units/L CK-MB (CK-2) (0.0-4.0) ng/mL Troponin T (0.00-0.029) ng/mL Total Protein 6.2 L (6.3-8.2) g/dL Albumin 3.5 L (3.9-5) g/dL Triglycerides (2-149) mg/dL HDL Cholesterol (40-59) mg/dL TSH (0.270-4.200) mlU/mL Urine WBC (Auto) (0.0-6.0) /HPF 11/10/17 11/10/17 11/10/17 Range/Units 20:35 20:35 22:07 WBC (4.5-11.0) K/mm3 RBC (3.65-5.03) M/mm3 MCV (79-97) fl MCH (28-32) pg MCHC (30-34) % Plt Count (140-440) K/mm3 Seg Neuts % (Manual) (40.0-70.0) % Lymphocytes % (Manual) (13.4-35.0) % Seg Neutrophils # Man (1.8-7.7) K/mm3 Monocytes # (Manual) (0.0-0.8) K/mm3 Basophils # (Manual) (0.0-0.1) K/mm3 PT (12.2-14.9) Sec. INR (0.87-1.13) POC ABG pH (7.35-7.45) POC ABG pCO2 (35-45) POC ABG pO2 (80-105) VBG pH (7.320-7.420) Sodium 124 L (137-145) mmol/L Potassium 7.6 H* (3.6-5.0) mmol/L Chloride 82.0 L (98-107) mmol/L Carbon Dioxide 3 L* (22-30) mmol/L BUN 33 H (7-17) mg/dL Creatinine 1.8 H (0.7-1.2) mg/dL Glucose 977 H* (65-100) mg/dL POC Glucose 481 H (70-105) Lactic Acid (0.7-2.0) mmol/L Calcium 7.8 L (8.4-10.2) mg/dL Phosphorus 9.40 H (2.5-4.5) mg/dL Magnesium 2.70 H (1.7-2.3) mg/dL Total Creatine Kinase (30-135) units/L CK-MB (CK-2) (0.0-4.0) ng/mL Troponin T (0.00-0.029) ng/mL Total Protein (6.3-8.2) g/dL Albumin (3.9-5) g/dL Triglycerides (2-149) mg/dL HDL Cholesterol (40-59) mg/dL TSH (0.270-4.200) mlU/mL Urine WBC (Auto) (0.0-6.0) /HPF 11/10/17 11/10/17 11/10/17 Range/Units 23:06 23:06 23:15 WBC (4.5-11.0) K/mm3 RBC (3.65-5.03) M/mm3 MCV (79-97) fl MCH (28-32) pg MCHC (30-34) % Plt Count (140-440) K/mm3 Seg Neuts % (Manual) (40.0-70.0) % Lymphocytes % (Manual) (13.4-35.0) % Seg Neutrophils # Man (1.8-7.7) K/mm3 Monocytes # (Manual) (0.0-0.8) K/mm3 Basophils # (Manual) (0.0-0.1) K/mm3 PT (12.2-14.9) Sec. INR (0.87-1.13) POC ABG pH (7.35-7.45) POC ABG pCO2 (35-45) POC ABG pO2 (80-105) VBG pH (7.320-7.420) Sodium 133 L D (137-145) mmol/L Potassium 5.6 H D (3.6-5.0) mmol/L Chloride 97.1 L (98-107) mmol/L Carbon Dioxide 3 L* (22-30) mmol/L BUN 32 H (7-17) mg/dL Creatinine 1.6 H (0.7-1.2) mg/dL Glucose 664 H* (65-100) mg/dL POC Glucose (70-105) Lactic Acid 2.30 H* (0.7-2.0) mmol/L Calcium 6.8 L (8.4-10.2) mg/dL Phosphorus (2.5-4.5) mg/dL Magnesium (1.7-2.3) mg/dL Total Creatine Kinase (30-135) units/L CK-MB (CK-2) (0.0-4.0) ng/mL Troponin T (0.00-0.029) ng/mL Total Protein (6.3-8.2) g/dL Albumin (3.9-5) g/dL Triglycerides (2-149) mg/dL HDL Cholesterol (40-59) mg/dL TSH 15.990 H (0.270-4.200) mlU/mL Urine WBC (Auto) (0.0-6.0) /HPF 11/10/17 11/10/17 11/11/17 Range/Units 23:29 Unknown 00:01 WBC (4.5-11.0) K/mm3 RBC (3.65-5.03) M/mm3 MCV (79-97) fl MCH (28-32) pg MCHC (30-34) % Plt Count (140-440) K/mm3 Seg Neuts % (Manual) (40.0-70.0) % Lymphocytes % (Manual) (13.4-35.0) % Seg Neutrophils # Man (1.8-7.7) K/mm3 Monocytes # (Manual) (0.0-0.8) K/mm3 Basophils # (Manual) (0.0-0.1) K/mm3 PT (12.2-14.9) Sec. INR (0.87-1.13) POC ABG pH (7.35-7.45) POC ABG pCO2 (35-45) POC ABG pO2 (80-105) VBG pH 6.881 L* (7.320-7.420) Sodium (137-145) mmol/L Potassium (3.6-5.0) mmol/L Chloride (98-107) mmol/L Carbon Dioxide (22-30) mmol/L BUN (7-17) mg/dL Creatinine (0.7-1.2) mg/dL Glucose (65-100) mg/dL POC Glucose 481 H (70-105) Lactic Acid (0.7-2.0) mmol/L Calcium (8.4-10.2) mg/dL Phosphorus (2.5-4.5) mg/dL Magnesium (1.7-2.3) mg/dL Total Creatine Kinase (30-135) units/L CK-MB (CK-2) (0.0-4.0) ng/mL Troponin T (0.00-0.029) ng/mL Total Protein (6.3-8.2) g/dL Albumin (3.9-5) g/dL Triglycerides (2-149) mg/dL HDL Cholesterol (40-59) mg/dL TSH (0.270-4.200) mlU/mL Urine WBC (Auto) 8.0 H (0.0-6.0) /HPF 11/11/17 11/11/17 11/11/17 Range/Units 00:01 00:46 00:46 WBC (4.5-11.0) K/mm3 RBC (3.65-5.03) M/mm3 MCV (79-97) fl MCH (28-32) pg MCHC (30-34) % Plt Count (140-440) K/mm3 Seg Neuts % (Manual) (40.0-70.0) % Lymphocytes % (Manual) (13.4-35.0) % Seg Neutrophils # Man (1.8-7.7) K/mm3 Monocytes # (Manual) (0.0-0.8) K/mm3 Basophils # (Manual) (0.0-0.1) K/mm3 PT (12.2-14.9) Sec. INR (0.87-1.13) POC ABG pH (7.35-7.45) POC ABG pCO2 (35-45) POC ABG pO2 (80-105) VBG pH (7.320-7.420) Sodium 135 L (137-145) mmol/L Potassium (3.6-5.0) mmol/L Chloride (98-107) mmol/L Carbon Dioxide 3 L* 5 L* (22-30) mmol/L BUN 32 H 32 H (7-17) mg/dL Creatinine 1.5 H 1.5 H (0.7-1.2) mg/dL Glucose 579 H* 560 H* (65-100) mg/dL POC Glucose (70-105) Lactic Acid 2.40 H* (0.7-2.0) mmol/L Calcium 6.9 L 6.8 L (8.4-10.2) mg/dL Phosphorus (2.5-4.5) mg/dL Magnesium (1.7-2.3) mg/dL Total Creatine Kinase (30-135) units/L CK-MB (CK-2) (0.0-4.0) ng/mL Troponin T (0.00-0.029) ng/mL Total Protein (6.3-8.2) g/dL Albumin (3.9-5) g/dL Triglycerides (2-149) mg/dL HDL Cholesterol (40-59) mg/dL TSH (0.270-4.200) mlU/mL Urine WBC (Auto) (0.0-6.0) /HPF 11/11/17 11/11/17 11/11/17 Range/Units 00:58 02:19 02:21 WBC (4.5-11.0) K/mm3 RBC (3.65-5.03) M/mm3 MCV (79-97) fl MCH (28-32) pg MCHC (30-34) % Plt Count (140-440) K/mm3 Seg Neuts % (Manual) (40.0-70.0) % Lymphocytes % (Manual) (13.4-35.0) % Seg Neutrophils # Man (1.8-7.7) K/mm3 Monocytes # (Manual) (0.0-0.8) K/mm3 Basophils # (Manual) (0.0-0.1) K/mm3 PT (12.2-14.9) Sec. INR (0.87-1.13) POC ABG pH (7.35-7.45) POC ABG pCO2 (35-45) POC ABG pO2 (80-105) VBG pH (7.320-7.420) Sodium (137-145) mmol/L Potassium (3.6-5.0) mmol/L Chloride (98-107) mmol/L Carbon Dioxide (22-30) mmol/L BUN (7-17) mg/dL Creatinine (0.7-1.2) mg/dL Glucose (65-100) mg/dL POC Glucose > 500 H < 40 L 457 H (70-105) Lactic Acid (0.7-2.0) mmol/L Calcium (8.4-10.2) mg/dL Phosphorus (2.5-4.5) mg/dL Magnesium (1.7-2.3) mg/dL Total Creatine Kinase (30-135) units/L CK-MB (CK-2) (0.0-4.0) ng/mL Troponin T (0.00-0.029) ng/mL Total Protein (6.3-8.2) g/dL Albumin (3.9-5) g/dL Triglycerides (2-149) mg/dL HDL Cholesterol (40-59) mg/dL TSH (0.270-4.200) mlU/mL Urine WBC (Auto) (0.0-6.0) /HPF 11/11/17 11/11/17 11/11/17 Range/Units 03:31 03:45 03:45 WBC (4.5-11.0) K/mm3 RBC (3.65-5.03) M/mm3 MCV (79-97) fl MCH (28-32) pg MCHC (30-34) % Plt Count (140-440) K/mm3 Seg Neuts % (Manual) (40.0-70.0) % Lymphocytes % (Manual) (13.4-35.0) % Seg Neutrophils # Man (1.8-7.7) K/mm3 Monocytes # (Manual) (0.0-0.8) K/mm3 Basophils # (Manual) (0.0-0.1) K/mm3 PT (12.2-14.9) Sec. INR (0.87-1.13) POC ABG pH (7.35-7.45) POC ABG pCO2 (35-45) POC ABG pO2 (80-105) VBG pH (7.320-7.420) Sodium 147 H D (137-145) mmol/L Potassium 2.9 L* D (3.6-5.0) mmol/L Chloride (98-107) mmol/L Carbon Dioxide 11 L (22-30) mmol/L BUN 31 H (7-17) mg/dL Creatinine 1.8 H (0.7-1.2) mg/dL Glucose 587 H* (65-100) mg/dL POC Glucose 436 H (70-105) Lactic Acid 9.50 H* (0.7-2.0) mmol/L Calcium 6.4 L (8.4-10.2) mg/dL Phosphorus (2.5-4.5) mg/dL Magnesium (1.7-2.3) mg/dL Total Creatine Kinase (30-135) units/L CK-MB (CK-2) (0.0-4.0) ng/mL Troponin T (0.00-0.029) ng/mL Total Protein (6.3-8.2) g/dL Albumin (3.9-5) g/dL Triglycerides (2-149) mg/dL HDL Cholesterol (40-59) mg/dL TSH (0.270-4.200) mlU/mL Urine WBC (Auto) (0.0-6.0) /HPF 11/11/17 11/11/17 11/11/17 Range/Units 04:16 04:45 05:50 WBC (4.5-11.0) K/mm3 RBC (3.65-5.03) M/mm3 MCV (79-97) fl MCH (28-32) pg MCHC (30-34) % Plt Count (140-440) K/mm3 Seg Neuts % (Manual) (40.0-70.0) % Lymphocytes % (Manual) (13.4-35.0) % Seg Neutrophils # Man (1.8-7.7) K/mm3 Monocytes # (Manual) (0.0-0.8) K/mm3 Basophils # (Manual) (0.0-0.1) K/mm3 PT (12.2-14.9) Sec. INR (0.87-1.13) POC ABG pH 7.036 L (7.35-7.45) POC ABG pCO2 (35-45) POC ABG pO2 66 L (80-105) VBG pH (7.320-7.420) Sodium (137-145) mmol/L Potassium (3.6-5.0) mmol/L Chloride (98-107) mmol/L Carbon Dioxide (22-30) mmol/L BUN (7-17) mg/dL Creatinine (0.7-1.2) mg/dL Glucose (65-100) mg/dL POC Glucose 495 H > 500 H (70-105) Lactic Acid (0.7-2.0) mmol/L Calcium (8.4-10.2) mg/dL Phosphorus (2.5-4.5) mg/dL Magnesium (1.7-2.3) mg/dL Total Creatine Kinase (30-135) units/L CK-MB (CK-2) (0.0-4.0) ng/mL Troponin T (0.00-0.029) ng/mL Total Protein (6.3-8.2) g/dL Albumin (3.9-5) g/dL Triglycerides (2-149) mg/dL HDL Cholesterol (40-59) mg/dL TSH (0.270-4.200) mlU/mL Urine WBC (Auto) (0.0-6.0) /HPF 11/11/17 11/11/17 11/11/17 Range/Units 06:29 06:29 06:41 WBC (4.5-11.0) K/mm3 RBC (3.65-5.03) M/mm3 MCV (79-97) fl MCH (28-32) pg MCHC (30-34) % Plt Count (140-440) K/mm3 Seg Neuts % (Manual) (40.0-70.0) % Lymphocytes % (Manual) (13.4-35.0) % Seg Neutrophils # Man (1.8-7.7) K/mm3 Monocytes # (Manual) (0.0-0.8) K/mm3 Basophils # (Manual) (0.0-0.1) K/mm3 PT (12.2-14.9) Sec. INR (0.87-1.13) POC ABG pH (7.35-7.45) POC ABG pCO2 (35-45) POC ABG pO2 (80-105) VBG pH (7.320-7.420) Sodium 149 H (137-145) mmol/L Potassium 3.0 L (3.6-5.0) mmol/L Chloride 109.5 H (98-107) mmol/L Carbon Dioxide 17 L (22-30) mmol/L BUN 31 H (7-17) mg/dL Creatinine 1.7 H (0.7-1.2) mg/dL Glucose 407 H (65-100) mg/dL POC Glucose 387 H (70-105) Lactic Acid 2.60 H* (0.7-2.0) mmol/L Calcium 6.2 L (8.4-10.2) mg/dL Phosphorus (2.5-4.5) mg/dL Magnesium (1.7-2.3) mg/dL Total Creatine Kinase (30-135) units/L CK-MB (CK-2) (0.0-4.0) ng/mL Troponin T (0.00-0.029) ng/mL Total Protein (6.3-8.2) g/dL Albumin (3.9-5) g/dL Triglycerides (2-149) mg/dL HDL Cholesterol (40-59) mg/dL TSH (0.270-4.200) mlU/mL Urine WBC (Auto) (0.0-6.0) /HPF 11/11/17 11/11/17 11/11/17 Range/Units 07:05 07:07 07:07 WBC (4.5-11.0) K/mm3 RBC (3.65-5.03) M/mm3 MCV (79-97) fl MCH (28-32) pg MCHC (30-34) % Plt Count (140-440) K/mm3 Seg Neuts % (Manual) (40.0-70.0) % Lymphocytes % (Manual) (13.4-35.0) % Seg Neutrophils # Man (1.8-7.7) K/mm3 Monocytes # (Manual) (0.0-0.8) K/mm3 Basophils # (Manual) (0.0-0.1) K/mm3 PT (12.2-14.9) Sec. INR (0.87-1.13) POC ABG pH (7.35-7.45) POC ABG pCO2 (35-45) POC ABG pO2 (80-105) VBG pH (7.320-7.420) Sodium 151 H (137-145) mmol/L Potassium 3.0 L (3.6-5.0) mmol/L Chloride 107.5 H (98-107) mmol/L Carbon Dioxide 11 L (22-30) mmol/L BUN 31 H (7-17) mg/dL Creatinine 1.8 H (0.7-1.2) mg/dL Glucose 541 H* (65-100) mg/dL POC Glucose 378 H (70-105) Lactic Acid (0.7-2.0) mmol/L Calcium 6.5 L (8.4-10.2) mg/dL Phosphorus (2.5-4.5) mg/dL Magnesium (1.7-2.3) mg/dL Total Creatine Kinase 686 H (30-135) units/L CK-MB (CK-2) 19.6 H (0.0-4.0) ng/mL Troponin T (0.00-0.029) ng/mL Total Protein (6.3-8.2) g/dL Albumin (3.9-5) g/dL Triglycerides (2-149) mg/dL HDL Cholesterol (40-59) mg/dL TSH (0.270-4.200) mlU/mL Urine WBC (Auto) (0.0-6.0) /HPF 11/11/17 11/11/17 11/11/17 Range/Units 08:52 10:45 10:45 WBC (4.5-11.0) K/mm3 RBC (3.65-5.03) M/mm3 MCV (79-97) fl MCH 33 H (28-32) pg MCHC (30-34) % Plt Count (140-440) K/mm3 Seg Neuts % (Manual) (40.0-70.0) % Lymphocytes % (Manual) (13.4-35.0) % Seg Neutrophils # Man (1.8-7.7) K/mm3 Monocytes # (Manual) (0.0-0.8) K/mm3 Basophils # (Manual) (0.0-0.1) K/mm3 PT (12.2-14.9) Sec. INR (0.87-1.13) POC ABG pH 7.175 L (7.35-7.45) POC ABG pCO2 45.1 H (35-45) POC ABG pO2 33 L (80-105) VBG pH (7.320-7.420) Sodium (137-145) mmol/L Potassium (3.6-5.0) mmol/L Chloride (98-107) mmol/L Carbon Dioxide (22-30) mmol/L BUN (7-17) mg/dL Creatinine (0.7-1.2) mg/dL Glucose (65-100) mg/dL POC Glucose (70-105) Lactic Acid (0.7-2.0) mmol/L Calcium (8.4-10.2) mg/dL Phosphorus (2.5-4.5) mg/dL Magnesium (1.7-2.3) mg/dL Total Creatine Kinase 1041 H (30-135) units/L CK-MB (CK-2) 31.9 H (0.0-4.0) ng/mL Troponin T 0.041 H D (0.00-0.029) ng/mL Total Protein (6.3-8.2) g/dL Albumin (3.9-5) g/dL Triglycerides 510 H (2-149) mg/dL HDL Cholesterol 26 L (40-59) mg/dL TSH (0.270-4.200) mlU/mL Urine WBC (Auto) (0.0-6.0) /HPF 11/11/17 Range/Units 11:08 WBC (4.5-11.0) K/mm3 RBC (3.65-5.03) M/mm3 MCV (79-97) fl MCH (28-32) pg MCHC (30-34) % Plt Count (140-440) K/mm3 Seg Neuts % (Manual) (40.0-70.0) % Lymphocytes % (Manual) (13.4-35.0) % Seg Neutrophils # Man (1.8-7.7) K/mm3 Monocytes # (Manual) (0.0-0.8) K/mm3 Basophils # (Manual) (0.0-0.1) K/mm3 PT (12.2-14.9) Sec. INR (0.87-1.13) POC ABG pH 7.157 L (7.35-7.45) POC ABG pCO2 52.2 H (35-45) POC ABG pO2 31 L (80-105) VBG pH (7.320-7.420) Sodium (137-145) mmol/L Potassium (3.6-5.0) mmol/L Chloride (98-107) mmol/L Carbon Dioxide (22-30) mmol/L BUN (7-17) mg/dL Creatinine (0.7-1.2) mg/dL Glucose (65-100) mg/dL POC Glucose (70-105) Lactic Acid (0.7-2.0) mmol/L Calcium (8.4-10.2) mg/dL Phosphorus (2.5-4.5) mg/dL Magnesium (1.7-2.3) mg/dL Total Creatine Kinase (30-135) units/L CK-MB (CK-2) (0.0-4.0) ng/mL Troponin T (0.00-0.029) ng/mL Total Protein (6.3-8.2) g/dL Albumin (3.9-5) g/dL Triglycerides (2-149) mg/dL HDL Cholesterol (40-59) mg/dL TSH (0.270-4.200) mlU/mL Urine WBC (Auto) (0.0-6.0) /HPF
--- NOTE | 2017-11-11 12:43 | Event Note ---
Date: 11/11/17 Code blue was called again at 12:12 pm ACLS initiated, Pt was in PEA received 2 epi, 2 bicarb, 2 calcium Cl pulse gained and updated mother
[2017-11-11] MEDS: ZITHROMAX 500 MG in NACL 0.9% 250ML 250 ML IV SCH (13:08)
[2017-11-11 13:10] LABS: Calcium 11.4 mg/dL (8.4-10.2)
[2017-11-11] MEDS: ADRENALIN 8 MG in NACL 0.9% 250ML 242 ML IV SCH (13:10)
[2017-11-11] MEDS: LOVENOX SUB-Q SCH (13:42)
[2017-11-11] MEDS: Vasostrict 20 UNIT in NACL 0.9% 100 ML IV SCH ×2 (13:43→23:08)
[2017-11-11] MEDS: KCL 10MEQ/100ML 10 MEQ/100 ML BAG IV SCH ×2 (13:43→15:33)
[2017-11-11] MEDS: SODIUM BICARBONATE 100 MEQ in D5W 1,000 ML IV SCH ×2 (13:46→21:04)
--- NOTE | 2017-11-11 13:54 | Event Note ---
Date: 11/11/17 S/P PEA Cardiac arrest remains severely hypoxemic CXR does not completely explain hypoxemia - get dopplers to r/o VTE - too unstable for other VTE testing
[2017-11-11] MEDS ORDERED: CALCIUM CHLORIDE IV ONE (14:28)
--- NOTE | 2017-11-11 14:55 | Event Note ---
Date: 11/11/[address] Carson. 37 y/o female with history of uncontrolled DM, non compliance with diabetes meds, previous admissions due to DKA, gastroparesis ; brought to the hospital due to be found severely lethargic by a family member at home. EMS called and she had a glucose above 500. In the ED, temp 92, HR 72, R 16, BP 88/31. WBC 39K. Hg 11.5. Plat 469. Sodium 151. Creat 1.8. Glu 541. CXR RLL infiltrate. CT abd showed kathleen infiltrates, all cultures pending. S/P VT cardiac arrest this AM. On pressors. Severe septic shock: from asp pneumonia / CAP Acute encephalopathy LOC Acute resp failure Uncontrolled DM with DKA S/P VT cardiac arrest this AM Plan: -agree with combination zosyn and vanco -f/u blood and sputum cx -check TSH, cortisol -Cards on board -TTE Guarded prognosis Full consultation to f/u Sean
[2017-11-11] MEDS: PEPCID IV SCH ×2 (16:22→22:45)
[2017-11-11 16:30] LABS: Calcium 7.8 mg/dL (8.4-10.2)
--- NOTE | 2017-11-11 17:44 | XRay Report ---
FINAL REPORT EXAM: XR CHEST 1V AP HISTORY: Cardiac Arrest/ Pneumothorax TECHNIQUE: AP view of the chest PRIORS: Comparison made to today's earlier exam and study of November 11, 2017 FINDINGS: There has been placement of ET tube. ET tube is in satisfactory position tip approximately 5 centimeters above the sukhjinder. Right subclavian catheter is been placed tip at the SVC. No evidence for pneumothorax post catheter placement. Again identified are extensive bilateral peripheral infiltrates which are worsening since the previous studies. Cardiac silhouette is now partially obscured. IMPRESSION: ET tube and right subclavian catheter in satisfactory position No evidence for pneumothorax post catheter placement worsening of bilateral pulmonary infiltrates
[2017-11-11] MEDS ORDERED: NEO-SYNEPHRINE 100 MG in NACL 0.9% 90 ML IV SCH (19:45)
[2017-11-11] MEDS ORDERED: INTROPIN DRIP 800 MG/D5W 250 ML 800 MG/250 ML BAG IV SCH (20:00)
--- NOTE | 2017-11-11 21:06 | Consultation ---
CONSULTING PHYSICIAN: Dr. Walton. REASON FOR CONSULTATION: Acute hypoxemic respiratory failure, severe sepsis. CHIEF COMPLAINT AND HISTORY OF PRESENT ILLNESS: The patient is a 37-year-old female known to us from prior admissions with past medical history significant for a diagnosis of diabetes, who showed up in the Emergency Room yesterday. She was brought in by family members. She was extremely lethargic at that time. She had a blood glucose above 500. She has a history of noncompliance. She was brought into the Emergency Room, evaluated in the Emergency Room and ultimately diagnosed with diabetic ketoacidosis. I received a call about midnight about request for an admission for diabetic ketoacidosis that also was given. The patient upon reaching the Critical Care Unit reportedly had a cardiac arrest. She required emergent intubation. She was with severe sepsis. She was significantly hypoxemic essentially with adult respiratory distress syndrome. When I stopped by to see her, she was on mechanical ventilator. We had her FiO2 of 100% and set rate of about 30 with a tidal volume of 400 and a pH was still about 7.10. She was on multiple vasopressors including Levophed, vasopressin as well as dopamine. The patient was moving all the extremities. As far as we can tell, she was never able to converse with anyone. Her GCS was reported as about 9 at her initial presentation. When I stopped by to see her, she remained on the mechanical ventilator. She had significant spontaneous respiratory effort, despite the set rate of 30 per minute. I do not have any history of vomiting or overt aspiration. The above is really as much of the history of presentation as I have. I should mention she did suffer a V-fib arrest at the time of transfer to the Critical Care Unit and after ACLS protocol and return of spontaneous circulation, she was started on amiodarone drip. PAST MEDICAL HISTORY: 1. Diabetes. 2. History of medication noncompliance. PAST SURGICAL HISTORY: Unknown. MEDICATIONS: She was on at the time I stopped by to see were reviewed, pertinent medications include the following: Lovenox 30 mg subcutaneous daily. She was on an insulin drip going at about 12 units per hour, Levophed drip was maxed at 30 mcg per minute, Zosyn was going at 2.25 g IV q.6 hours, Zofran 4 mg IV q.8 hours p.r.n. nausea and vomiting, vancomycin 1 g IV daily. She also had a dopamine drip going at 3 mcg per kilogram per minute and vasopressin drip 0.03 units per minute. ALLERGIES: No known drug allergies. DIET: Well-built lady, acute weight loss or gain history is unknown. FAMILY AND SOCIAL HISTORY: Apparently lives in the community. There is a family history of hypertension and diabetes. Alcohol, tobacco, or illicit drug use or abuse history is unknown. REVIEW OF SYSTEMS: Unobtainable secondary to the patient's medical and mental condition. Since she has been here, no gross hematochezia or melena, no gross hematuria, no bloody tracheal secretions, no witnessed seizures. Review of systems is otherwise unobtainable. PHYSICAL EXAMINATION: VITAL SIGNS: On examination, at presentation, her first temperature I have was 92.7 rectally, pulse was 72, respiratory rate was 16, blood pressure 88/31, oxygen sats 96%, inspired oxygen concentration was not recorded at the time of my evaluation. Initially, she was on the PRVC AC mode of ventilation, tidal volumes 400, set rate of 30, and PEEP of 14 at that time. GENERAL: Young female, normocephalic, on the mechanical ventilator. Endotracheal tube around 23 cm at the lips with a moderately severe increased work of breathing. HEAD, EYES, EARS, NOSE AND THROAT: She is anicteric. No conjunctival erythema. No gross jugular venous distention, no thyromegaly. She has about dime-sized area of depression to the right lower mandible that appears to have been traumatically induced, but appears superficial also at the same time. LUNGS: Auscultation of both lung atkinson reveal bilateral rales, no wheezing. HEART: Heart sounds 1 and 2 are heard. Regular tachycardia at the time of my evaluation. No rubs or murmurs. ABDOMEN: Soft, full, bowel sounds are positive, nontender. No palpable hepatosplenomegaly. EXTREMITIES: Without overt digital clubbing, cyanosis, or pedal edema. NEUROLOGIC: She has spontaneous movements to all 4 extremities; however, she is not following commands. The skin is of poor turgor without overt cellulitis or rash. She has the area described above on the right submandibular region. LABORATORY DATA: From my review are as follows: Admission white cell count 39,800 with a hemoglobin of 11.5, hematocrit of 42.0, platelet count 469,000. Zero percent band neutrophils. INR 1.48. Venous blood gas at presentation showed a pH of 6.76. Serum sodium was 133, potassium 5.6, chloride 97, bicarbonate 3, BUN 32, creatinine 1.6, and glucose of 664. Lactic acid level was 2.3, it peaked at 9.5, and is back down to 2.6. Phosphorus 9.4, magnesium 2.7. Albumin was slightly reduced at 3.5. TSH was elevated at 15.99. CPK was 686. Troponin within normal limits. Urinalysis negative for nitrites and leukocyte esterase, 8 white cells per high power field. Drug screen was negative. All cultures no growth to date. Chest x-ray was done. I have reviewed the chest x-ray. I also reviewed the radiologist's interpretation. I do agree with it. The most recent chest x-ray in particular is suspicious for chronic and acute eosinophilic pneumonia with peripheral based densities/infiltrates, cardiovascular silhouette is within normal limits. She has a right subclavian line with the tip in the distal SVC. Endotracheal tube tip is around the level of the aortic knob. No gross pneumothorax, no gross bony fractures that I can see. ASSESSMENT: 1. Severe sepsis with shock. 2. Acute hypoxemic respiratory failure/adult respiratory distress syndrome. 3. Bilateral pneumonia, possible acute eosinophilic pneumonia. 4. Diabetic ketoacidosis. 5. Leukocytosis. 6. Severe metabolic acidosis. 7. Lactic acidosis. 8. Elevated TSH. 9. Acute encephalopathy. PLAN: We will continue full mechanical ventilatory support. I did attempt to switch her to the airway pressure release ventilation mode; however, her minute volumes dropped precipitously. She is back with a lung-protective volume ventilation, tidal volume at this point, tidal volume set around 6.5 mL per kilogram ideal body weight. I will continue to hyperventilate her acutely to try and compensate for this severe metabolic acidosis. We have increased the positive end expiratory pressure to 18. Arterial blood gas will be repeated shortly. Blood pressure is improving. I will go ahead and continue to wean vasopressors to keep the mean arterial pressure greater than or equal to about 65 mmHg. Volume resuscitation is ongoing. In the short time, we will change the fluids to sterile water with 75 mEq of sodium bicarbonate per liter and run to about 150 mL per hour for about 3 liters after then we will reassess the patient reevaluate the arterial blood gas and make selections and the IV fluids from that point. As soon as we are able, we will be given some sedation on her just so that I can ventilate her better, especially with low tidal volume ventilation strategy. She is on broad-spectrum antibiotic therapies. I will add coverage for atypical pneumonias. I will add Levaquin or Zithromax to the mix in this lady. She has been appropriately pancultured. Bronchodilators will be ordered in the short time and as needed thereafter. We will schedule them initially. If she is more stable shortly, I will go ahead and plan to do a bronchoscopy with bronchioalveolar lavage to send for cell count, differential with the idea that we will be trying to evaluate for indeed an acute eosinophilic pneumonia. In the meantime, I will start her on systemic steroid therapy. She has gotten a stat dose of 125 mg of IV Solu-Medrol. I will schedule it at 60 mg q.8 hours thereafter or q.6 hours in the short time keeping an eye on her blood sugars. She will be placed on gastrointestinal prophylaxis, she is appropriately on deep venous thrombosis prophylaxis. Nephrology consultation has been placed. The hyperkalemia is being addressed. Certainly, as the metabolic acidosis improves, that should also improve. Flu and pneumonia vaccination will be addressed per protocol. Thank you very much for the consult. We will reevaluate her multiple times during the day and as needed. She definitely is critically ill, at high risk for further deterioration and from a cardiovascular, pulmonary systems, and renal systems. At this time, we spent about 40-45 minutes of critical care time without overlap and excluding any procedural time that may be necessary. JOB# [id number] SANDOR/GUY
[2017-11-11 21:10] LABS: Calcium 7.9 mg/dL (8.4-10.2)
[2017-11-11] MEDS ORDERED: KCL 20MEQ/100ML 20 MEQ/100 ML BAG IV ONE (21:27)
[2017-11-11] MEDS ORDERED: POTASSIUM CHLORIDE FEEDTUBE ONE (21:29)
--- NOTE | 2017-11-11 22:39 | XRay Report ---
FINAL REPORT EXAM: XR ABDOMEN 1V AP HISTORY: NG tube placement TECHNIQUE: AP upper abdomen for tube placement PRIORS: None. FINDINGS: NG tube identified. Distal end descends below the diaphragm with side port and distal end of the tube in the region of the body of the stomach. Pulmonary infiltrates are identified in the visualized portion of the lower lobes IMPRESSION: NG tube in satisfactory position
[2017-11-11] MEDS: VANCOMYCIN/NS 1 GM/250 ML 1 GM/250 ML BAG IV SCH (22:45)
[2017-11-12] MEDS: ZOSYN/NS 2.25 GM/50ML 2.25 GM/50 ML BAG IV SCH ×4 (00:25→19:05)
[2017-11-12] MEDS: LEVOPHED 8 MG in NACL 0.9% 250ML 242 ML IV SCH ×3 (00:54→18:02)
[2017-11-12 01:12] LABS: Calcium 7.7 mg/dL (8.4-10.2)
[2017-11-12] MEDS: CORDARONE 900 MG in D5W 482 ML IV SCH (02:47)
[2017-11-12] MEDS: TYLENOL PO PRN (03:08)
[2017-11-12] MEDS: ADRENALIN 8 MG in NACL 0.9% 250ML 242 ML IV SCH ×2 (03:25→16:36)
[2017-11-12] MEDS: SODIUM BICARBONATE 100 MEQ in D5W 1,000 ML IV SCH ×2 (04:12→11:32)
[2017-11-12 05:43] LABS: Calcium 7.3 mg/dL (8.4-10.2)
--- NOTE | 2017-11-12 06:08 | Progress Note ---
Assessment and Plan 1. Acute kidney injury: LOC in the setting of volume depletion and DKA. Renal function gradually declining due to septic shock. Continue IV fluids. 2. Hypokalemia: Replete K. Monitor. 3. Severe metabolic acidosis: On Bicarbonate drip and Insulin drip. 4. Septic shock: On Levophed, Epinephrine and Vasopressin. 5. Hypernatremia: Hypotonic IV fluids. D/w RN to start on water flushes through the NG tube. 6. Respiratory failure: On vent. 7. S/p Cardiac arrest. 8. Encephalopathy. Prognosis is guarded. Subjective Date of service: 11/12/17 Interval history: Patient was seen and examined at the bedside. Objective - Vital Signs Vital signs: Vital Signs - 12hr 11/11/17 11/11/17 11/11/17 18:10 18:20 18:30 Temperature Pulse Rate 111 H 118 H 118 H Respiratory 17 15 22 Rate Blood Pressure 90/48 77/50 75/51 O2 Sat by Pulse 85 86 88 Oximetry 11/11/17 11/11/17 11/11/17 18:40 18:50 19:00 Temperature Pulse Rate 117 H 118 H 119 H Respiratory 13 15 16 Rate Blood Pressure 75/51 75/51 90/57 O2 Sat by Pulse 87 85 85 Oximetry 11/11/17 11/11/17 11/11/17 19:10 19:20 19:30 Temperature Pulse Rate 119 H 124 H 131 H Respiratory 18 18 27 H Rate Blood Pressure 90/57 100/67 100/67 O2 Sat by Pulse 88 86 100 Oximetry 11/11/17 11/11/17 11/11/17 19:39 19:40 19:50 Temperature 99.9 F H Pulse Rate 133 H 133 H Respiratory 24 20 Rate Blood Pressure 91/64 117/73 O2 Sat by Pulse 85 84 Oximetry 11/11/17 11/11/17 11/11/17 19:53 20:00 20:10 Temperature Pulse Rate 131 H 125 H 126 H Respiratory 25 H 27 H Rate Blood Pressure 117/73 102/75 102/75 O2 Sat by Pulse 85 86 85 Oximetry 11/11/17 11/11/17 11/11/17 20:20 20:30 20:40 Temperature Pulse Rate 127 H 127 H 128 H Respiratory 19 22 23 Rate Blood Pressure 105/71 96/77 96/77 O2 Sat by Pulse 86 86 85 Oximetry 07/13/18 07/13/18 07/13/18 20:50 21:00 21:10 Temperature Pulse Rate 129 H 125 H 122 H Respiratory 20 22 16 Rate Blood Pressure 111/72 118/69 118/69 O2 Sat by Pulse 87 86 88 Oximetry 11/11/17 11/11/17 11/11/17 21:20 21:24 21:30 Temperature Pulse Rate 127 H 122 H 121 H Respiratory 27 H 21 23 Rate Blood Pressure 120/66 111/72 111/72 O2 Sat by Pulse 85 85 Oximetry 11/11/17 11/11/17 11/11/17 21:46 22:00 22:16 Temperature Pulse Rate 119 H 124 H 124 H Respiratory 23 21 24 Rate Blood Pressure 104/63 120/66 102/68 O2 Sat by Pulse 86 77 L 90 Oximetry 11/11/17 11/11/17 11/11/17 22:30 22:46 23:00 Temperature Pulse Rate 124 H 125 H 125 H Respiratory 23 21 29 H Rate Blood Pressure 111/66 96/71 96/71 O2 Sat by Pulse 88 89 Oximetry 11/11/17 11/11/17 11/11/17 23:16 23:21 23:30 Temperature 102.8 F H Pulse Rate 125 H 126 H Respiratory 23 21 Rate Blood Pressure 120/72 112/73 O2 Sat by Pulse 91 80 L Oximetry 11/11/17 11/11/17 11/11/17 23:45 23:48 23:49 Temperature Pulse Rate 125 H 126 H Respiratory 21 Rate Blood Pressure 119/79 119/79 O2 Sat by Pulse 91 92 92 Oximetry 11/12/17 11/12/17 11/12/17 00:00 00:16 00:30 Temperature Pulse Rate 125 H 121 H 126 H Respiratory 22 14 21 Rate Blood Pressure 119/79 116/72 129/73 O2 Sat by Pulse 90 90 89 Oximetry 11/12/17 11/12/17 11/12/17 00:45 01:03 03:00 Temperature 99.0 F 103.0 F H Pulse Rate 128 H Respiratory 16 Rate Blood Pressure 119/98 O2 Sat by Pulse 91 Oximetry 11/12/17 11/12/17 03:08 04:00 Temperature 103 F H Pulse Rate 113 H Respiratory Rate Blood Pressure 123/80 O2 Sat by Pulse 95 Oximetry - General Appearance General appearance: well-developed, appears stated age, intubated, other (on vent, Fio2 100%) EENT: ATNC, PERRL Neck: supple Respiratory: Present: Other (coarse breath sounds) Cardiology: regular, tachycardia, S1S2, no murmurs Gastrointestinal: no tenderness, other (BS heard) Integumentary: no rash, warm and dry Neurologic: obtunded, other Musculoskeletal: other (no edema) - Lab 11/11/17 10:45 11/12/17 05:06 Most recent lab results Calcium 7.3 mg/dL (8.4-10.2) L 11/12/17 05:06 Phosphorus 9.40 mg/dL (2.5-4.5) H 11/10/17 20:35 Magnesium 2.70 mg/dL (1.7-2.3) H 11/10/17 20:35
[2017-11-12] MEDS ORDERED: POTASSIUM CHLORIDE FEEDTUBE ONE (06:36)
[2017-11-12] MEDS: HumuLIN R 100 UNITS in NACL 0.9% 99 ML IV SCH ×2 (07:50→20:09)
[2017-11-12] MEDS ORDERED: KCL 20 MEQ in D5NS 0.2% 1,000 ML IV SCH (08:00)
--- NOTE | 2017-11-12 08:10 | XRay Report ---
FINAL REPORT EXAM: XR CHEST 1V AP HISTORY: follow up respiratory failure TECHNIQUE: AP portable view(s) of the chest obtained. PRIORS: 11/11/2017 FINDINGS: The endotracheal tube terminates approximately 6 cm from the sukhjinder. Enteric tube courses below the diaphragm and off of the inferior field of view. Unchanged right subclavian line. No pneumothorax. Bilateral consolidative right greater than left airspace disease is similar to prior. No acute skeletal finding. IMPRESSION: Satisfactory appearance of patient's support apparatus without pneumothorax or significant change in right greater than left airspace disease compared to 11/11/2017.
--- NOTE | 2017-11-12 09:40 | Progress Note ---
Assessment and Plan Respiratory failure status post intubation Status post cardiac arrest secondary to the v tach Sepsis Acute renal failure Non-ST elevation NV type II Pneumonia Hypoxemia Hypernatremia Recommend weaning off amiodarone continue to correct underlying sepsis mental status patient is not responsive and pupils are dilated , prognosis poor Echocardiogram shows normal LV function no significant regurgitations Subjective Date of service: 11/12/17 Principal diagnosis: s/p cardiac arrest Interval history: not responsive Objective Vital Signs Temp Pulse Pulse Resp Resp BP Pulse Ox 11/12/17 08:59 128 H 102/64 94 11/12/17 08:51 94 11/12/17 08:45 112 H 12 102/64 96 11/12/17 08:30 110 H 14 112/64 92 11/12/17 08:15 123 H 18 120/72 94 11/12/17 08:00 99.4 F 117 H 114 H 15 120/72 91 11/12/17 07:45 116 H 15 114/70 96 11/12/17 07:30 123 H 18 109/74 92 11/12/17 07:16 114 H 18 123/67 96 11/12/17 07:00 118 H 19 122/78 94 11/12/17 06:45 114 H 17 124/71 97 11/12/17 06:30 115 H 12 120/74 91 11/12/17 06:15 120 H 14 115/75 95 11/12/17 06:00 121 H 16 111/90 95 11/12/17 05:46 120 H 19 111/90 96 11/12/17 05:30 121 H 15 122/80 96 11/12/17 05:15 120 H 18 116/89 95 11/12/17 05:00 117 H 15 125/81 97 11/12/17 04:45 121 H 18 123/79 96 11/12/17 04:30 117 H 18 123/80 11/12/17 04:16 119 H 19 128/79 94 11/12/17 04:00 115 H 115 H 30 H 129/97 94 11/12/17 03:46 115 H 19 131/88 94 11/12/17 03:30 116 H 16 132/102 88 11/12/17 03:16 121 H 18 130/109 93 11/12/17 03:08 103 F H 11/12/17 03:00 103.0 F H 118 H 19 125/105 95 11/12/17 02:45 120 H 19 112/76 94 11/12/17 02:30 117 H 18 114/73 82 L 11/12/17 02:16 122 H 19 138/88 91 11/12/17 02:00 122 H 15 136/82 92 11/12/17 01:45 121 H 15 123/93 93 11/12/17 01:30 122 H 21 126/97 91 11/12/17 01:15 125 H 17 117/95 92 11/12/17 01:03 99.0 F 11/12/17 01:00 128 H 18 129/73 91 11/12/17 00:45 128 H 16 119/98 91 11/12/17 00:30 126 H 21 129/73 89 11/12/17 00:16 121 H 14 116/72 90 11/12/17 00:00 125 H 125 H 30 H 119/79 90 11/11/17 23:49 126 H 119/79 92 11/11/17 23:48 92 11/11/17 23:45 125 H 21 119/79 91 11/11/17 23:30 126 H 21 112/73 80 L 11/11/17 23:21 102.8 F H 11/11/17 23:16 125 H 23 120/72 91 11/11/17 23:00 125 H 29 H 96/71 89 11/11/17 22:46 125 H 21 96/71 88 11/11/17 22:30 124 H 23 111/66 11/11/17 22:16 124 H 24 102/68 90 11/11/17 22:00 124 H 21 120/66 77 L 11/11/17 21:46 119 H 23 104/63 86 11/11/17 21:30 121 H 23 111/72 11/11/17 21:24 122 H 21 111/72 85 11/11/17 21:20 127 H 27 H 120/66 85 11/11/17 21:10 122 H 16 118/69 88 11/11/17 21:00 125 H 22 118/69 86 11/11/17 20:50 129 H 20 111/72 87 11/11/17 20:40 128 H 23 96/77 85 11/11/17 20:30 127 H 22 96/77 86 11/11/17 20:20 127 H 19 105/71 86 11/11/17 20:10 126 H 27 H 102/75 85 11/11/17 20:00 125 H 25 H 102/75 86 11/11/17 19:53 131 H 117/73 85 11/11/17 19:50 133 H 20 117/73 84 11/11/17 19:40 133 H 24 91/64 85 11/11/17 19:39 99.9 F H 11/11/17 19:30 131 H 131 H 30 H 100/67 85 11/11/17 19:20 124 H 18 100/67 86 11/11/17 19:10 119 H 18 90/57 88 11/11/17 19:00 119 H 16 90/57 85 11/11/17 18:50 118 H 15 75/51 85 11/11/17 18:40 117 H 13 75/51 87 11/11/17 18:30 118 H 22 75/51 88 11/11/17 18:20 118 H 15 77/50 86 11/11/17 18:10 111 H 17 90/48 85 11/11/17 18:00 114 H 13 90/48 87 11/11/17 17:50 113 H 16 75/53 85 11/11/17 17:40 119 H 15 87/48 86 11/11/17 17:30 118 H 23 84/54 82 L 11/11/17 17:20 119 H 20 84/54 84 11/11/17 17:10 120 H 22 84/54 85 11/11/17 17:00 121 H 21 84/54 87 11/11/17 16:50 120 H 17 89/50 86 11/11/17 16:40 120 H 24 74/45 86 11/11/17 16:30 119 H 31 H 74/45 82 L 11/11/17 16:20 122 H 15 93/42 81 L 11/11/17 16:10 123 H 15 93/55 82 L 11/11/17 16:00 112 H 15 93/55 73 L 11/11/17 15:50 116 H 30 H 91/60 71 L 11/11/17 15:40 19 105/54 58 L 11/11/17 15:30 99 H 15 87/58 11/11/17 15:20 120 H 17 87/58 78 L 07/13/18 15:10 133 H 19 118/97 78 L 07/13/18 15:00 136 H 25 H 114/69 80 L 07//18 14:50 139 H 31 H 114/69 84 07/13/18 14:40 134 H 25 H 108/63 85 07/13/18 14:30 69 75 H 88/55 07//18 14:20 111 H 15 88/55 76 L 07//18 14:10 127 H 25 H 92/58 78 L 07//18 14:00 129 H 25 H 100/61 78 L 07//18 13:50 131 H 33 H 100/61 75 L 07/13/18 13:40 133 H 32 H 94/65 74 L 07//18 13:32 134 H 94/65 73 L 07//18 13:30 135 H 32 H 123/94 77 L 07//18 13:20 138 H 33 H 123/94 73 L 07/13/18 13:10 137 H 33 H 122/76 71 L 07//18 13:00 136 H 34 H 103/59 72 L 07//18 12:50 134 H 30 H 103/59 78 L 07//18 12:40 130 H 29 H 108/69 85 07/13/18 12:30 120 H 18 108/69 07/13/18 12:20 133 H 21 151/82 07//18 12:10 86 28 H 88/52 65 L 07/13/18 12:00 120 H 129 H 30 H 88/52 72 L 07/13/18 11:50 124 H 26 H 95/62 75 L 07/13/18 11:40 123 H 14 92/58 76 L 07/13/18 11:30 124 H 22 92/58 76 L 07/13/18 11:20 125 H 22 82/56 73 L 07/13/18 11:10 123 H 21 100/64 73 L 07/13/18 11:00 125 H 31 H 100/64 73 L 07/13/18 10:50 125 H 34 H 93/56 73 L 07/13/18 10:40 124 H 32 H 93/56 73 L 07/13/18 10:30 121 H 30 H 93/56 72 L 07/13/18 10:20 122 H 31 H 93/63 75 L 11/11/17 10:10 124 H 28 H 114/61 68 L 11/11/17 10:00 131 H 33 H 32 H 109/71 68 L 11/11/17 09:50 127 H 34 H 109/71 67 L 11/11/17 09:40 124 H 32 H 108/63 66 L - Physical Examination General: Other HEENT: Positive: Other (dilated 5 mm) Neck: Positive: neck supple, trachea midline Cardiac: Positive: Tachycardia Lungs: Positive: Decreased Breath Sounds Neuro: Positive: Other (intubated, nonresponsive) Abdomen: Positive: Soft Extremities: Absent: edema - Labs and Meds Cardiac Enzymes 11/11/17 Range/Units 10:45 CK-MB (CK-2) 31.9 H (0.0-4.0) ng/mL Lipids 11/11/17 Range/Units 10:45 Triglycerides 510 H (2-149) mg/dL Cholesterol 170 (50-199) mg/dL HDL Cholesterol 26 L (40-59) mg/dL Cholesterol/HDL Ratio 6.53 % CBC 11/11/17 Range/Units 10:45 WBC 4.8 (4.5-11.0) K/mm3 RBC 4.29 (3.65-5.03) M/mm3 Hgb 14.1 (10.1-14.3) gm/dl Hct 40.9 (30.3-42.9) % Plt Count 294 (140-440) K/mm3 Comprehensive Metabolic Panel 11/11/17 11/11/17 11/11/17 Range/Units 12:40 16:08 20:25 Sodium 171 H* D 153 H D 154 H (137-145) mmol/L Potassium 2.9 L* 3.3 L 2.7 L* (3.6-5.0) mmol/L Chloride 118.2 H 112.6 H 110.8 H (98-107) mmol/L Carbon Dioxide 39 H D 14 L D 20 L (22-30) mmol/L BUN 28 H 30 H 31 H (7-17) mg/dL Creatinine 1.8 H 2.1 H 2.4 H (0.7-1.2) mg/dL Glucose 301 H 301 H 261 H (65-100) mg/dL Calcium 11.4 H D 7.8 L D 7.9 L (8.4-10.2) mg/dL 11/12/17 11/12/17 Range/Units 00:26 05:06 Sodium 154 H 154 H (137-145) mmol/L Potassium 4.3 D 3.2 L D (3.6-5.0) mmol/L Chloride 113.1 H 109.8 H (98-107) mmol/L Carbon Dioxide 17 L 24 D (22-30) mmol/L BUN 34 H 32 H (7-17) mg/dL Creatinine 2.5 H 2.6 H (0.7-1.2) mg/dL Glucose 144 H 157 H (65-100) mg/dL Calcium 7.7 L 7.3 L (8.4-10.2) mg/dL - Imaging and Cardiology EKG: report reviewed, image reviewed Pharmacologic stress test: report reviewed (09/2016 normal myocardial perfusionsignificant ischemia noted) Echo: report reviewed (11/11/2017 normal lv function, no signficant regurgitations) - Telemetry EKG Rhythm: Sinus Tachycardia - EKG Sinus rhythms and dysrhythmias: sinus tachycardia
[2017-11-12] MEDS: SYNTHROID IV SCH (10:43)
[2017-11-12] MEDS: PEPCID IV SCH (10:43)
[2017-11-12] MEDS: LOVENOX SUB-Q SCH (10:43)
[2017-11-12] MEDS: ZITHROMAX 500 MG in NACL 0.9% 250ML 250 ML IV SCH (10:44)
[2017-11-12] MEDS: SODIUM CHLORIDE FLUSH SYRINGE 10 ML IV SCH (10:46)
[2017-11-12] MEDS: Vasostrict 20 UNIT in NACL 0.9% 100 ML IV SCH ×2 (11:31→20:11)
[2017-11-12] MEDS ORDERED: PNEUMOVAX 23 IM ONE (12:00)
--- NOTE | 2017-11-12 12:32 | Progress Note ---
Assessment and Plan s/p cardiorespiratory arrest - She was intubated and ACLS protocol was initiated shortly following admission - s/p cardiac arrest X4, 1st time with [facility],then followed by [facility] X3 - likely from Severe DKA and severe septic shock - consulted cardiology, on amioderone drip for now - preserved EF on 2d echo, trend troponin Acute respiratory failure with severe hypoxia - likely b/l PNA with ARDS due to severe DKA and sepsis - scheduled steroid, nebs, on vent with positive pressure ventilation - CC following severe hypothyroidism - TSH >15 on presentation - start on synrhroid iv DKA - Continue insulin drip, BMP every 4 hours - Placed on DKA protocol severe Septic shock - Continue to trend lactic acid, continue vancomycin and Zosyn for now - Patient currently on levophed, epinephrine and dopamine - Critical care and ID has been consulted Severe metabolic acidosis - due to DKA, cont insulin drip and BMP every 4 hours Acute renal failure - Continue IV fluid, nephrology consulted - declining renal function and urine output Hypernatremia, con hypotonic fluid, free water with NG Bilateral pneumonia - Continue antibiotic, Staph on sputum culture Hyperkalemia, status post Kayexalate Hypokalemia, will cont to replete Encephalopathy, metabolic vs anoxix - cont frequent neuro check - ordered CT head but clinically unstable to do Cont DVT prophylaxis, Updated family at bedside Full code The high probability of a clinically significant, sudden or life threatening deterioration of the [multiple] system(s) required my full and direct attention , intervention and personal management. The aggregate critical care time was [50 ] minutes. This time is in addition to time spent performing reported procedures but includes the following: [x] Data Review and interpretation [x] Patient assessment and monitoring of vital signs [x] Documentation [x] Medication orders and management Hospitalist Physical exam: GENERAL: well-developed WF lying on bed appeared unresponsive, on vent HEENT: Normocephalic. Atraumatic. No conjunctival congestion or icterus. dilated pupil with sluggish reaction to light, Patient has dry mucous membrane. NECK: Supple. Trachea midline. ET tube on place CHEST/LUNGS: Clear to auscultated bilaterally, breathing with Vent. No wheezes crackles or rhonchi. HEART/CARDIOVASCULAR: tachycardic. S1 and S2 positive. ABDOMEN: Abdomen is soft, nontender. Patient has hypoactive bowel sounds. SKIN: There is no rash. Warm and dry. cold NEURO: does not Follow command. unresponsive MUSCULOSKELETAL: No joint effusion or tenderness. EXTRIMITY: No edema, no cyanosis or clubbing. PSYCH: unable to assess Subjective Date of service: 11/12/17 Principal diagnosis: s/p cardiac arrest Interval history: Pt seen and examined updated family and discussed about prognosis Remained on vent and pressors Objective - Constitutional Vitals: Vital Signs - 12hr 11/12/17 11/12/17 11/12/17 00:30 00:45 01:00 Temperature Pulse Rate 126 H 128 H 128 H Pulse Rate [ From Monitor] Respiratory 21 16 18 Rate Blood Pressure 129/73 119/98 129/73 O2 Sat by Pulse 89 91 91 Oximetry 11/12/17 11/12/17 11/12/17 01:03 01:15 01:30 Temperature 99.0 F Pulse Rate 125 H 122 H Pulse Rate [ From Monitor] Respiratory 17 21 Rate Blood Pressure 117/95 126/97 O2 Sat by Pulse 92 91 Oximetry 11/12/17 11/12/17 11/12/17 01:45 02:00 02:16 Temperature Pulse Rate 121 H 122 H 122 H Pulse Rate [ From Monitor] Respiratory 15 15 19 Rate Blood Pressure 123/93 136/82 138/88 O2 Sat by Pulse 93 92 91 Oximetry 11/12/17 11/12/17 11/12/17 02:30 02:45 03:00 Temperature 103.0 F H Pulse Rate 117 H 120 H 118 H Pulse Rate [ From Monitor] Respiratory 18 19 19 Rate Blood Pressure 114/73 112/76 125/105 O2 Sat by Pulse 82 L 94 95 Oximetry 11/12/17 11/12/17 11/12/17 03:08 03:16 03:30 Temperature 103 F H Pulse Rate 121 H 116 H Pulse Rate [ From Monitor] Respiratory 18 16 Rate Blood Pressure 130/109 132/102 O2 Sat by Pulse 93 88 Oximetry 11/12/17 11/12/17 11/12/17 03:46 04:00 04:16 Temperature Pulse Rate 115 H 115 H 119 H Pulse Rate [ 115 H From Monitor] Respiratory 19 30 H 19 Rate Blood Pressure 131/88 129/97 128/79 O2 Sat by Pulse 94 94 94 Oximetry 11/12/17 11/12/17 11/12/17 04:30 04:45 05:00 Temperature Pulse Rate 117 H 121 H 117 H Pulse Rate [ From Monitor] Respiratory 18 18 15 Rate Blood Pressure 123/80 123/79 125/81 O2 Sat by Pulse 96 97 Oximetry 11/12/17 11/12/17 11/12/17 05:15 05:30 05:46 Temperature Pulse Rate 120 H 121 H 120 H Pulse Rate [ From Monitor] Respiratory 18 15 19 Rate Blood Pressure 116/89 122/80 111/90 O2 Sat by Pulse 95 96 96 Oximetry 11/12/17 11/12/17 11/12/17 06:00 06:15 06:30 Temperature Pulse Rate 121 H 120 H 115 H Pulse Rate [ From Monitor] Respiratory 16 14 12 Rate Blood Pressure 111/90 115/75 120/74 O2 Sat by Pulse 95 95 91 Oximetry 11/12/17 11/12/17 11/12/17 06:45 07:00 07:16 Temperature Pulse Rate 114 H 118 H 114 H Pulse Rate [ From Monitor] Respiratory 17 19 18 Rate Blood Pressure 124/71 122/78 123/67 O2 Sat by Pulse 97 94 96 Oximetry 11/12/17 11/12/17 11/12/17 07:30 07:45 08:00 Temperature 99.4 F Pulse Rate 123 H 116 H 117 H Pulse Rate [ 114 H From Monitor] Respiratory 18 15 15 Rate Blood Pressure 109/74 114/70 120/72 O2 Sat by Pulse 92 96 91 Oximetry 11/12/17 11/12/17 11/12/17 08:15 08:30 08:45 Temperature Pulse Rate 123 H 110 H 112 H Pulse Rate [ From Monitor] Respiratory 18 14 12 Rate Blood Pressure 120/72 112/64 102/64 O2 Sat by Pulse 94 92 96 Oximetry 11/12/17 11/12/17 11/12/17 08:51 08:59 09:00 Temperature Pulse Rate 128 H 116 H Pulse Rate [ From Monitor] Respiratory 17 Rate Blood Pressure 102/64 104/56 O2 Sat by Pulse 94 94 94 Oximetry 11/12/17 11/12/17 11/12/17 09:16 09:30 09:45 Temperature Pulse Rate 107 H 120 H 115 H Pulse Rate [ From Monitor] Respiratory 11 L 14 10 L Rate Blood Pressure 73/39 97/67 105/54 O2 Sat by Pulse 73 L 86 79 L Oximetry 11/12/17 11/12/17 11/12/17 09:54 10:00 10:16 Temperature Pulse Rate 109 H 117 H 101 H Pulse Rate [ From Monitor] Respiratory 11 L 12 Rate Blood Pressure 105/54 95/64 147/65 O2 Sat by Pulse 78 L 85 Oximetry 11/12/17 10:30 Temperature Pulse Rate 105 H Pulse Rate [ From Monitor] Respiratory 12 Rate Blood Pressure 132/89 O2 Sat by Pulse 88 Oximetry - Labs CBC & Chem 7: 11/12/17 18:05 11/12/17 21:30 Labs: Abnormal lab results 11/11/17 11/11/17 11/11/17 Range/Units 08:50 09:57 11:12 POC ABG pH (7.35-7.45) POC ABG pCO2 (35-45) POC ABG pO2 (80-105) Sodium (137-145) mmol/L Potassium (3.6-5.0) mmol/L Chloride (98-107) mmol/L Carbon Dioxide (22-30) mmol/L BUN (7-17) mg/dL Creatinine (0.7-1.2) mg/dL Glucose (65-100) mg/dL POC Glucose 256 H 232 H 246 H (70-105) Lactic Acid (0.7-2.0) mmol/L Calcium (8.4-10.2) mg/dL C-Reactive Protein (0.00-1.30) mg/dL 11/11/17 11/11/17 11/11/17 Range/Units 12:33 12:38 12:40 POC ABG pH 7.258 L (7.35-7.45) POC ABG pCO2 94.5 H (35-45) POC ABG pO2 50 L (80-105) Sodium 171 H* D (137-145) mmol/L Potassium 2.9 L* (3.6-5.0) mmol/L Chloride 118.2 H (98-107) mmol/L Carbon Dioxide 39 H D (22-30) mmol/L BUN 28 H (7-17) mg/dL Creatinine 1.8 H (0.7-1.2) mg/dL Glucose 301 H (65-100) mg/dL POC Glucose 265 H (70-105) Lactic Acid (0.7-2.0) mmol/L Calcium 11.4 H D (8.4-10.2) mg/dL C-Reactive Protein (0.00-1.30) mg/dL 11/11/17 11/11/17 11/11/17 Range/Units 12:40 12:40 13:58 POC ABG pH (7.35-7.45) POC ABG pCO2 (35-45) POC ABG pO2 (80-105) Sodium (137-145) mmol/L Potassium (3.6-5.0) mmol/L Chloride (98-107) mmol/L Carbon Dioxide (22-30) mmol/L BUN (7-17) mg/dL Creatinine (0.7-1.2) mg/dL Glucose (65-100) mg/dL POC Glucose 244 H (70-105) Lactic Acid 11.70 H* (0.7-2.0) mmol/L Calcium (8.4-10.2) mg/dL C-Reactive Protein 7.40 H (0.00-1.30) mg/dL 11/11/17 11/11/17 11/11/17 Range/Units 14:53 15:42 16:08 POC ABG pH (7.35-7.45) POC ABG pCO2 (35-45) POC ABG pO2 (80-105) Sodium 153 H D (137-145) mmol/L Potassium 3.3 L (3.6-5.0) mmol/L Chloride 112.6 H (98-107) mmol/L Carbon Dioxide 14 L D (22-30) mmol/L BUN 30 H (7-17) mg/dL Creatinine 2.1 H (0.7-1.2) mg/dL Glucose 301 H (65-100) mg/dL POC Glucose 273 H 311 H (70-105) Lactic Acid (0.7-2.0) mmol/L Calcium 7.8 L D (8.4-10.2) mg/dL C-Reactive Protein (0.00-1.30) mg/dL 11/11/17 11/11/17 11/11/17 Range/Units 17:09 18:41 19:49 POC ABG pH (7.35-7.45) POC ABG pCO2 (35-45) POC ABG pO2 (80-105) Sodium (137-145) mmol/L Potassium (3.6-5.0) mmol/L Chloride (98-107) mmol/L Carbon Dioxide (22-30) mmol/L BUN (7-17) mg/dL Creatinine (0.7-1.2) mg/dL Glucose (65-100) mg/dL POC Glucose 337 H 262 H 281 H (70-105) Lactic Acid (0.7-2.0) mmol/L Calcium (8.4-10.2) mg/dL C-Reactive Protein (0.00-1.30) mg/dL 11/11/17 11/11/17 11/11/17 Range/Units 20:14 20:25 20:53 POC ABG pH (7.35-7.45) POC ABG pCO2 (35-45) POC ABG pO2 (80-105) Sodium 154 H (137-145) mmol/L Potassium 2.7 L* (3.6-5.0) mmol/L Chloride 110.8 H (98-107) mmol/L Carbon Dioxide 20 L (22-30) mmol/L BUN 31 H (7-17) mg/dL Creatinine 2.4 H (0.7-1.2) mg/dL Glucose 261 H (65-100) mg/dL POC Glucose 265 H 274 H (70-105) Lactic Acid (0.7-2.0) mmol/L Calcium 7.9 L (8.4-10.2) mg/dL C-Reactive Protein (0.00-1.30) mg/dL 11/11/17 11/11/17 11/12/17 Range/Units 21:55 23:17 00:09 POC ABG pH (7.35-7.45) POC ABG pCO2 (35-45) POC ABG pO2 (80-105) Sodium (137-145) mmol/L Potassium (3.6-5.0) mmol/L Chloride (98-107) mmol/L Carbon Dioxide (22-30) mmol/L BUN (7-17) mg/dL Creatinine (0.7-1.2) mg/dL Glucose (65-100) mg/dL POC Glucose 209 H 180 H 176 H (70-105) Lactic Acid (0.7-2.0) mmol/L Calcium (8.4-10.2) mg/dL C-Reactive Protein (0.00-1.30) mg/dL 11/12/17 11/12/17 11/12/17 Range/Units 00:26 01:12 02:05 POC ABG pH (7.35-7.45) POC ABG pCO2 (35-45) POC ABG pO2 (80-105) Sodium 154 H (137-145) mmol/L Potassium (3.6-5.0) mmol/L Chloride 113.1 H (98-107) mmol/L Carbon Dioxide 17 L (22-30) mmol/L BUN 34 H (7-17) mg/dL Creatinine 2.5 H (0.7-1.2) mg/dL Glucose 144 H (65-100) mg/dL POC Glucose 148 H 148 H (70-105) Lactic Acid (0.7-2.0) mmol/L Calcium 7.7 L (8.4-10.2) mg/dL C-Reactive Protein (0.00-1.30) mg/dL 11/12/17 11/12/17 11/12/17 Range/Units 03:27 04:22 04:42 POC ABG pH (7.35-7.45) POC ABG pCO2 (35-45) POC ABG pO2 56 L (80-105) Sodium (137-145) mmol/L Potassium (3.6-5.0) mmol/L Chloride (98-107) mmol/L Carbon Dioxide (22-30) mmol/L BUN (7-17) mg/dL Creatinine (0.7-1.2) mg/dL Glucose (65-100) mg/dL POC Glucose 156 H 137 H (70-105) Lactic Acid (0.7-2.0) mmol/L Calcium (8.4-10.2) mg/dL C-Reactive Protein (0.00-1.30) mg/dL 11/12/17 11/12/17 11/12/17 Range/Units 05:06 05:34 05:42 POC ABG pH (7.35-7.45) POC ABG pCO2 (35-45) POC ABG pO2 (80-105) Sodium 154 H (137-145) mmol/L Potassium 3.2 L D (3.6-5.0) mmol/L Chloride 109.8 H (98-107) mmol/L Carbon Dioxide (22-30) mmol/L BUN 32 H (7-17) mg/dL Creatinine 2.6 H (0.7-1.2) mg/dL Glucose 157 H (65-100) mg/dL POC Glucose 163 H 166 H (70-105) Lactic Acid (0.7-2.0) mmol/L Calcium 7.3 L (8.4-10.2) mg/dL C-Reactive Protein (0.00-1.30) mg/dL 11/12/17 11/12/17 11/12/17 Range/Units 06:23 06:36 07:07 POC ABG pH (7.35-7.45) POC ABG pCO2 (35-45) POC ABG pO2 (80-105) Sodium (137-145) mmol/L Potassium (3.6-5.0) mmol/L Chloride (98-107) mmol/L Carbon Dioxide (22-30) mmol/L BUN (7-17) mg/dL Creatinine (0.7-1.2) mg/dL Glucose (65-100) mg/dL POC Glucose 171 H 181 H 170 H (70-105) Lactic Acid (0.7-2.0) mmol/L Calcium (8.4-10.2) mg/dL C-Reactive Protein (0.00-1.30) mg/dL 11/12/17 11/12/17 11/12/17 Range/Units 08:16 12:13 12:13 POC ABG pH 7.316 L (7.35-7.45) POC ABG pCO2 57.4 H (35-45) POC ABG pO2 46 L (80-105) Sodium (137-145) mmol/L Potassium (3.6-5.0) mmol/L Chloride (98-107) mmol/L Carbon Dioxide (22-30) mmol/L BUN (7-17) mg/dL Creatinine (0.7-1.2) mg/dL Glucose (65-100) mg/dL POC Glucose 171 H 123 H (70-105) Lactic Acid (0.7-2.0) mmol/L Calcium (8.4-10.2) mg/dL C-Reactive Protein (0.00-1.30) mg/dL
[2017-11-12] MEDS ORDERED: ZEMURON IV ONE ×2 (13:00→15:10)
--- NOTE | 2017-11-12 13:25 | Progress Note ---
Assessment and Plan Acute hypoxemic respiratory failure.. s/p cardiorespiratory arrest Subcutaneous emphysema DKA Severe Sepsis with septic shock Severe metabolic acidosis Acute renal failure ARDS Hypernatremia Encephalopathy, metabolic -VAP bundle addressed -Antibiotics per ID -Cardiology following -Patient's OI is 70 awith Pa/F ratio<150. The patient is too unstable for CT head. Her pupils are reactive, though sluggish and she will grimace to painful stimuli but is not "waking up" I have limited resources at this time to address her oxygenation...will use a paralytic and inverse ratio ventilation with lung protective strategies Discussed with [place] [facility] team, in view of her neurologic status, this is a relative contraindication to ECMO Will attempt to see if she can be transferred to a critical care unit there. -Vasopressor support to keep MAP>65 -Paralytics with TOF monitoring -Correct electrolyte abnormalities -Get freeT4 and initiate thyroid replacement therapies - Steroids for vasopressor unresponsive shock -Renal consult, may need renal replacement therapy -ABG and CXR qam and prn -Discontinue bicarbonate infusion, use crystalloids for intravascular volume expansion. Once she is off vasopressor support, plan to use volume restrictive strategies -Invasive hemodynamic monitoring. Place an intra-arterial line -Nutritional support -Insulin infusion for glycemic control Full code Prognosis is grave Discussed extensively with the hospitalist service and her common law . Discussed with her mother extensively The high probability of a clinically significant, sudden or life threatening deterioration of the [multiple] system(s) required my full and direct attention , intervention and personal management. The aggregate critical care time was [65 ] minutes. This time is in addition to time spent performing reported procedures but includes the following: [x] Data Review and interpretation [x] Patient assessment and monitoring of vital signs [x] Documentation [x] Medication orders and management Subjective Date of service: 11/12/17 Principal diagnosis: s/p cardiac arrest Interval history: 37 y/o female with history of uncontrolled DM, non compliance with diabetes meds , previous admissions due to DKA, gastroparesis; brought to the hospital on 11/10 severely lethargic by her common law at home. Per her , she celebrated her birthday 2 days before admission, she had some drinks with friends. The following day she developed severe nausea, vomiting and abdominal pain. She did not have any cough, SOB or cold symptoms. She did not eat cake or sweets. EMS was called and she had a glucose above 500. In the ED, temp 92, HR 72, R 16, BP 88/31. WBC 39K. Hg 11.5. Plat 469. Sodium 151. Creat 1.8. Glu 541. CXR RLL infiltrate . Intubated in the ER. S/P PEA cardiac arrest Patient is seen today for: Acute hypoxic respiratory, severe sepsis with septic shock, LOC, Acute encephalopathy, s/p cardiac arrest (PEA) Seen and examined at bedside; 24hour events reviewed; nursing and respiratory care staff consulted; events overnight noted. Fevers with desaturations. Objective - Exam Narrative Exam: General appearance: Acutely ill looking with moderate respiratory distress, orally intubated Patient-ventilator dyssynchrony Subcutaneous emphysema Eyes: anicteric sclerae, moist conjunctivae;Pupils are reactive to light HENT: Atraumatic; oropharynx +ETT +NGT Neck: Trachea midline; supple, no thyromegaly or lymphadenopathy Lungs: CTA, with normal respiratory effort and no intercostal retractions CV:Tachycardia, S1,S2 Abdomen: Soft, non-tender , mildly distended Extremities: Bilateral lower extremity edema 1+ Skin: Normal temperature, turgor and texture; no rash, ulcers or subcutaneous nodules Neuro: minimally responsive, grimaces to pain, not obeying commands, not on any sedation Lines: Right subclavian CVC Vital Signs - 12hr 11/12/17 11/12/17 11/12/17 01:30 01:45 02:00 Temperature Pulse Rate 122 H 121 H 122 H Pulse Rate [ From Monitor] Respiratory 21 15 15 Rate Blood Pressure 126/97 123/93 136/82 O2 Sat by Pulse 91 93 92 Oximetry 11/12/17 11/12/17 11/12/17 02:16 02:30 02:45 Temperature Pulse Rate 122 H 117 H 120 H Pulse Rate [ From Monitor] Respiratory 19 18 19 Rate Blood Pressure 138/88 114/73 112/76 O2 Sat by Pulse 91 82 L 94 Oximetry 11/12/17 11/12/17 11/12/17 03:00 03:08 03:16 Temperature 103.0 F H 103 F H Pulse Rate 118 H 121 H Pulse Rate [ From Monitor] Respiratory 19 18 Rate Blood Pressure 125/105 130/109 O2 Sat by Pulse 95 93 Oximetry 11/12/17 11/12/17 11/12/17 03:30 03:46 04:00 Temperature Pulse Rate 116 H 115 H 115 H Pulse Rate [ 115 H From Monitor] Respiratory 16 19 30 H Rate Blood Pressure 132/102 131/88 129/97 O2 Sat by Pulse 88 94 94 Oximetry 11/12/17 11/12/17 11/12/17 04:16 04:30 04:45 Temperature Pulse Rate 119 H 117 H 121 H Pulse Rate [ From Monitor] Respiratory 19 18 18 Rate Blood Pressure 128/79 123/80 123/79 O2 Sat by Pulse 94 96 Oximetry 11/12/17 11/12/17 11/12/17 05:00 05:15 05:30 Temperature Pulse Rate 117 H 120 H 121 H Pulse Rate [ From Monitor] Respiratory 15 18 15 Rate Blood Pressure 125/81 116/89 122/80 O2 Sat by Pulse 97 95 96 Oximetry 11/12/17 11/12/17 11/12/17 05:46 06:00 06:15 Temperature Pulse Rate 120 H 121 H 120 H Pulse Rate [ From Monitor] Respiratory 19 16 14 Rate Blood Pressure 111/90 111/90 115/75 O2 Sat by Pulse 96 95 95 Oximetry 11/12/17 11/12/17 11/12/17 06:30 06:45 07:00 Temperature Pulse Rate 115 H 114 H 118 H Pulse Rate [ From Monitor] Respiratory 12 17 19 Rate Blood Pressure 120/74 124/71 122/78 O2 Sat by Pulse 91 97 94 Oximetry 11/12/17 11/12/17 11/12/17 07:16 07:30 07:45 Temperature Pulse Rate 114 H 123 H 116 H Pulse Rate [ From Monitor] Respiratory 18 18 15 Rate Blood Pressure 123/67 109/74 114/70 O2 Sat by Pulse 96 92 96 Oximetry 11/12/17 11/12/17 11/12/17 08:00 08:15 08:30 Temperature 99.4 F Pulse Rate 117 H 123 H 110 H Pulse Rate [ 114 H From Monitor] Respiratory 15 18 14 Rate Blood Pressure 120/72 120/72 112/64 O2 Sat by Pulse 91 94 92 Oximetry 11/12/17 11/12/17 11/12/17 08:45 08:51 08:59 Temperature Pulse Rate 112 H 128 H Pulse Rate [ From Monitor] Respiratory 12 Rate Blood Pressure 102/64 102/64 O2 Sat by Pulse 96 94 94 Oximetry 11/12/17 11/12/17 11/12/17 09:00 09:16 09:30 Temperature Pulse Rate 116 H 107 H 120 H Pulse Rate [ From Monitor] Respiratory 17 11 L 14 Rate Blood Pressure 104/56 73/39 97/67 O2 Sat by Pulse 94 73 L 86 Oximetry 11/12/17 11/12/17 11/12/17 09:45 09:54 10:00 Temperature Pulse Rate 115 H 109 H 117 H Pulse Rate [ From Monitor] Respiratory 10 L 11 L Rate Blood Pressure 105/54 105/54 95/64 O2 Sat by Pulse 79 L 78 L Oximetry 11/12/17 11/12/17 11/12/17 10:16 10:30 12:00 Temperature 100.3 F H Pulse Rate 101 H 105 H Pulse Rate [ From Monitor] Respiratory 12 12 Rate Blood Pressure 147/65 132/89 O2 Sat by Pulse 85 88 Oximetry CBC and BMP: 11/11/17 10:45 11/12/17 05:06 ABG, PT/INR, D-dimer: ABG POC ABG pH 7.316 (7.35-7.45) L 11/12/17 12:13 POC ABG pCO2 57.4 (35-45) H 11/12/17 12:13 POC ABG pO2 46 (80-105) L 11/12/17 12:13 POC ABG HCO3 29.3 11/12/17 12:13 POC ABG Total CO2 31 11/12/17 12:13 POC ABG O2 Sat 77 11/12/17 12:13 PT/INR, D-dimer PT 18.8 Sec. (12.2-14.9) H 11/10/17 20:18 INR 1.48 (0.87-1.13) H 11/10/17 20:18 Abnormal lab findings: Abnormal Labs 11/10/17 11/10/17 11/10/17 19:54 20:18 20:18 WBC 39.8 H RBC 3.59 L MCV 117 H MCH MCHC 27 L Plt Count 469 H Seg Neuts % (Manual) 93.5 H Lymphocytes % (Manual) 3.0 L Seg Neutrophils # Man 37.2 H Monocytes # (Manual) 1.0 H Basophils # (Manual) 0.2 H PT 18.8 H INR 1.48 H POC ABG pH POC ABG pCO2 POC ABG pO2 VBG pH Sodium Potassium Chloride Carbon Dioxide BUN Creatinine Glucose POC Glucose 488 H Lactic Acid Calcium Phosphorus Magnesium Total Creatine Kinase CK-MB (CK-2) Troponin T C-Reactive Protein Total Protein Albumin Triglycerides HDL Cholesterol TSH Urine WBC (Auto) 11/10/17 11/10/17 11/10/17 20:18 20:18 20:18 WBC RBC MCV MCH MCHC Plt Count Seg Neuts % (Manual) Lymphocytes % (Manual) Seg Neutrophils # Man Monocytes # (Manual) Basophils # (Manual) PT INR POC ABG pH POC ABG pCO2 POC ABG pO2 VBG pH 6.763 L* Sodium 125 L Potassium 7.5 H* Chloride 82.9 L Carbon Dioxide 2 L* BUN 33 H Creatinine 1.8 H Glucose 976 H* POC Glucose Lactic Acid 3.00 H* Calcium 7.6 L Phosphorus Magnesium Total Creatine Kinase CK-MB (CK-2) Troponin T C-Reactive Protein Total Protein 6.2 L Albumin 3.5 L Triglycerides HDL Cholesterol TSH Urine WBC (Auto) 11/10/17 11/10/17 11/10/17 20:35 20:35 22:07 WBC RBC MCV MCH MCHC Plt Count Seg Neuts % (Manual) Lymphocytes % (Manual) Seg Neutrophils # Man Monocytes # (Manual) Basophils # (Manual) PT INR POC ABG pH POC ABG pCO2 POC ABG pO2 VBG pH Sodium 124 L Potassium 7.6 H* Chloride 82.0 L Carbon Dioxide 3 L* BUN 33 H Creatinine 1.8 H Glucose 977 H* POC Glucose 481 H Lactic Acid Calcium 7.8 L Phosphorus 9.40 H Magnesium 2.70 H Total Creatine Kinase CK-MB (CK-2) Troponin T C-Reactive Protein Total Protein Albumin Triglycerides HDL Cholesterol TSH Urine WBC (Auto) 11/10/17 11/10/17 11/10/17 23:06 23:06 23:15 WBC RBC MCV MCH MCHC Plt Count Seg Neuts % (Manual) Lymphocytes % (Manual) Seg Neutrophils # Man Monocytes # (Manual) Basophils # (Manual) PT INR POC ABG pH POC ABG pCO2 POC ABG pO2 VBG pH Sodium 133 L D Potassium 5.6 H D Chloride 97.1 L Carbon Dioxide 3 L* BUN 32 H Creatinine 1.6 H Glucose 664 H* POC Glucose Lactic Acid 2.30 H* Calcium 6.8 L Phosphorus Magnesium Total Creatine Kinase CK-MB (CK-2) Troponin T C-Reactive Protein Total Protein Albumin Triglycerides HDL Cholesterol TSH 15.990 H Urine WBC (Auto) 11/10/17 11/10/17 11/11/17 23:29 Unknown 00:01 WBC RBC MCV MCH MCHC Plt Count Seg Neuts % (Manual) Lymphocytes % (Manual) Seg Neutrophils # Man Monocytes # (Manual) Basophils # (Manual) PT INR POC ABG pH POC ABG pCO2 POC ABG pO2 VBG pH 6.881 L* Sodium Potassium Chloride Carbon Dioxide BUN Creatinine Glucose POC Glucose 481 H Lactic Acid Calcium Phosphorus Magnesium Total Creatine Kinase CK-MB (CK-2) Troponin T C-Reactive Protein Total Protein Albumin Triglycerides HDL Cholesterol TSH Urine WBC (Auto) 8.0 H 11/11/17 11/11/17 11/11/17 00:01 00:46 00:46 WBC RBC MCV MCH MCHC Plt Count Seg Neuts % (Manual) Lymphocytes % (Manual) Seg Neutrophils # Man Monocytes # (Manual) Basophils # (Manual) PT INR POC ABG pH POC ABG pCO2 POC ABG pO2 VBG pH Sodium 135 L Potassium Chloride Carbon Dioxide 3 L* 5 L* BUN 32 H 32 H Creatinine 1.5 H 1.5 H Glucose 579 H* 560 H* POC Glucose Lactic Acid 2.40 H* Calcium 6.9 L 6.8 L Phosphorus Magnesium Total Creatine Kinase CK-MB (CK-2) Troponin T C-Reactive Protein Total Protein Albumin Triglycerides HDL Cholesterol TSH Urine WBC (Auto) 11/11/17 11/11/17 11/11/17 00:58 02:19 02:21 WBC RBC MCV MCH MCHC Plt Count Seg Neuts % (Manual) Lymphocytes % (Manual) Seg Neutrophils # Man Monocytes # (Manual) Basophils # (Manual) PT INR POC ABG pH POC ABG pCO2 POC ABG pO2 VBG pH Sodium Potassium Chloride Carbon Dioxide BUN Creatinine Glucose POC Glucose > 500 H < 40 L 457 H Lactic Acid Calcium Phosphorus Magnesium Total Creatine Kinase CK-MB (CK-2) Troponin T C-Reactive Protein Total Protein Albumin Triglycerides HDL Cholesterol TSH Urine WBC (Auto) 11/11/17 11/11/17 11/11/17 03:31 03:45 03:45 WBC RBC MCV MCH MCHC Plt Count Seg Neuts % (Manual) Lymphocytes % (Manual) Seg Neutrophils # Man Monocytes # (Manual) Basophils # (Manual) PT INR POC ABG pH POC ABG pCO2 POC ABG pO2 VBG pH Sodium 147 H D Potassium 2.9 L* D Chloride Carbon Dioxide 11 L BUN 31 H Creatinine 1.8 H Glucose 587 H* POC Glucose 436 H Lactic Acid 9.50 H* Calcium 6.4 L Phosphorus Magnesium Total Creatine Kinase CK-MB (CK-2) Troponin T C-Reactive Protein Total Protein Albumin Triglycerides HDL Cholesterol TSH Urine WBC (Auto) 11/11/17 11/11/17 11/11/17 04:16 04:45 05:50 WBC RBC MCV MCH MCHC Plt Count Seg Neuts % (Manual) Lymphocytes % (Manual) Seg Neutrophils # Man Monocytes # (Manual) Basophils # (Manual) PT INR POC ABG pH 7.036 L POC ABG pCO2 POC ABG pO2 66 L VBG pH Sodium Potassium Chloride Carbon Dioxide BUN Creatinine Glucose POC Glucose 495 H > 500 H Lactic Acid Calcium Phosphorus Magnesium Total Creatine Kinase CK-MB (CK-2) Troponin T C-Reactive Protein Total Protein Albumin Triglycerides HDL Cholesterol TSH Urine WBC (Auto) 11/11/17 11/11/17 11/11/17 06:29 06:29 06:41 WBC RBC MCV MCH MCHC Plt Count Seg Neuts % (Manual) Lymphocytes % (Manual) Seg Neutrophils # Man Monocytes # (Manual) Basophils # (Manual) PT INR POC ABG pH POC ABG pCO2 POC ABG pO2 VBG pH Sodium 149 H Potassium 3.0 L Chloride 109.5 H Carbon Dioxide 17 L BUN 31 H Creatinine 1.7 H Glucose 407 H POC Glucose 387 H Lactic Acid 2.60 H* Calcium 6.2 L Phosphorus Magnesium Total Creatine Kinase CK-MB (CK-2) Troponin T C-Reactive Protein Total Protein Albumin Triglycerides HDL Cholesterol TSH Urine WBC (Auto) 11/11/17 11/11/17 11/11/17 07:05 07:07 07:07 WBC RBC MCV MCH MCHC Plt Count Seg Neuts % (Manual) Lymphocytes % (Manual) Seg Neutrophils # Man Monocytes # (Manual) Basophils # (Manual) PT INR POC ABG pH POC ABG pCO2 POC ABG pO2 VBG pH Sodium 151 H Potassium 3.0 L Chloride 107.5 H Carbon Dioxide 11 L BUN 31 H Creatinine 1.8 H Glucose 541 H* POC Glucose 378 H Lactic Acid Calcium 6.5 L Phosphorus Magnesium Total Creatine Kinase 686 H CK-MB (CK-2) 19.6 H Troponin T C-Reactive Protein Total Protein Albumin Triglycerides HDL Cholesterol TSH Urine WBC (Auto) 11/11/17 11/11/17 11/11/17 08:50 08:52 09:57 WBC RBC MCV MCH MCHC Plt Count Seg Neuts % (Manual) Lymphocytes % (Manual) Seg Neutrophils # Man Monocytes # (Manual) Basophils # (Manual) PT INR POC ABG pH 7.175 L POC ABG pCO2 45.1 H POC ABG pO2 33 L VBG pH Sodium Potassium Chloride Carbon Dioxide BUN Creatinine Glucose POC Glucose 256 H 232 H Lactic Acid Calcium Phosphorus Magnesium Total Creatine Kinase CK-MB (CK-2) Troponin T C-Reactive Protein Total Protein Albumin Triglycerides HDL Cholesterol TSH Urine WBC (Auto) 11/11/17 11/11/17 11/11/17 10:45 10:45 11:08 WBC RBC MCV MCH 33 H MCHC Plt Count Seg Neuts % (Manual) Lymphocytes % (Manual) Seg Neutrophils # Man Monocytes # (Manual) Basophils # (Manual) PT INR POC ABG pH 7.157 L POC ABG pCO2 52.2 H POC ABG pO2 31 L VBG pH Sodium Potassium Chloride Carbon Dioxide BUN Creatinine Glucose POC Glucose Lactic Acid Calcium Phosphorus Magnesium Total Creatine Kinase 1041 H CK-MB (CK-2) 31.9 H Troponin T 0.041 H D C-Reactive Protein Total Protein Albumin Triglycerides 510 H HDL Cholesterol 26 L TSH Urine WBC (Auto) 11/11/17 11/11/17 11/11/17 11:12 12:33 12:38 WBC RBC MCV MCH MCHC Plt Count Seg Neuts % (Manual) Lymphocytes % (Manual) Seg Neutrophils # Man Monocytes # (Manual) Basophils # (Manual) PT INR POC ABG pH 7.258 L POC ABG pCO2 94.5 H POC ABG pO2 50 L VBG pH Sodium Potassium Chloride Carbon Dioxide BUN Creatinine Glucose POC Glucose 246 H 265 H Lactic Acid Calcium Phosphorus Magnesium Total Creatine Kinase CK-MB (CK-2) Troponin T C-Reactive Protein Total Protein Albumin Triglycerides HDL Cholesterol TSH Urine WBC (Auto) 11/11/17 11/11/17 11/11/17 12:40 12:40 12:40 WBC RBC MCV MCH MCHC Plt Count Seg Neuts % (Manual) Lymphocytes % (Manual) Seg Neutrophils # Man Monocytes # (Manual) Basophils # (Manual) PT INR POC ABG pH POC ABG pCO2 POC ABG pO2 VBG pH Sodium 171 H* D Potassium 2.9 L* Chloride 118.2 H Carbon Dioxide 39 H D BUN 28 H Creatinine 1.8 H Glucose 301 H POC Glucose Lactic Acid 11.70 H* Calcium 11.4 H D Phosphorus Magnesium Total Creatine Kinase CK-MB (CK-2) Troponin T C-Reactive Protein 7.40 H Total Protein Albumin Triglycerides HDL Cholesterol TSH Urine WBC (Auto) 11/11/17 11/11/17 11/11/17 13:58 14:53 15:42 WBC RBC MCV MCH MCHC Plt Count Seg Neuts % (Manual) Lymphocytes % (Manual) Seg Neutrophils # Man Monocytes # (Manual) Basophils # (Manual) PT INR POC ABG pH POC ABG pCO2 POC ABG pO2 VBG pH Sodium Potassium Chloride Carbon Dioxide BUN Creatinine Glucose POC Glucose 244 H 273 H 311 H Lactic Acid Calcium Phosphorus Magnesium Total Creatine Kinase CK-MB (CK-2) Troponin T C-Reactive Protein Total Protein Albumin Triglycerides HDL Cholesterol TSH Urine WBC (Auto) 11/11/17 11/11/17 11/11/17 16:08 17:09 18:41 WBC RBC MCV MCH MCHC Plt Count Seg Neuts % (Manual) Lymphocytes % (Manual) Seg Neutrophils # Man Monocytes # (Manual) Basophils # (Manual) PT INR POC ABG pH POC ABG pCO2 POC ABG pO2 VBG pH Sodium 153 H D Potassium 3.3 L Chloride 112.6 H Carbon Dioxide 14 L D BUN 30 H Creatinine 2.1 H Glucose 301 H POC Glucose 337 H 262 H Lactic Acid Calcium 7.8 L D Phosphorus Magnesium Total Creatine Kinase CK-MB (CK-2) Troponin T C-Reactive Protein Total Protein Albumin Triglycerides HDL Cholesterol TSH Urine WBC (Auto) 11/11/17 11/11/17 11/11/17 19:49 20:14 20:25 WBC RBC MCV MCH MCHC Plt Count Seg Neuts % (Manual) Lymphocytes % (Manual) Seg Neutrophils # Man Monocytes # (Manual) Basophils # (Manual) PT INR POC ABG pH POC ABG pCO2 POC ABG pO2 VBG pH Sodium 154 H Potassium 2.7 L* Chloride 110.8 H Carbon Dioxide 20 L BUN 31 H Creatinine 2.4 H Glucose 261 H POC Glucose 281 H 265 H Lactic Acid Calcium 7.9 L Phosphorus Magnesium Total Creatine Kinase CK-MB (CK-2) Troponin T C-Reactive Protein Total Protein Albumin Triglycerides HDL Cholesterol TSH Urine WBC (Auto) 11/11/17 11/11/17 11/11/17 20:53 21:55 23:17 WBC RBC MCV MCH MCHC Plt Count Seg Neuts % (Manual) Lymphocytes % (Manual) Seg Neutrophils # Man Monocytes # (Manual) Basophils # (Manual) PT INR POC ABG pH POC ABG pCO2 POC ABG pO2 VBG pH Sodium Potassium Chloride Carbon Dioxide BUN Creatinine Glucose POC Glucose 274 H 209 H 180 H Lactic Acid Calcium Phosphorus Magnesium Total Creatine Kinase CK-MB (CK-2) Troponin T C-Reactive Protein Total Protein Albumin Triglycerides HDL Cholesterol TSH Urine WBC (Auto) 11/12/17 11/12/17 11/12/17 00:09 00:26 01:12 WBC RBC MCV MCH MCHC Plt Count Seg Neuts % (Manual) Lymphocytes % (Manual) Seg Neutrophils # Man Monocytes # (Manual) Basophils # (Manual) PT INR POC ABG pH POC ABG pCO2 POC ABG pO2 VBG pH Sodium 154 H Potassium Chloride 113.1 H Carbon Dioxide 17 L BUN 34 H Creatinine 2.5 H Glucose 144 H POC Glucose 176 H 148 H Lactic Acid Calcium 7.7 L Phosphorus Magnesium Total Creatine Kinase CK-MB (CK-2) Troponin T C-Reactive Protein Total Protein Albumin Triglycerides HDL Cholesterol TSH Urine WBC (Auto) 11/12/17 11/12/17 11/12/17 02:05 03:27 04:22 WBC RBC MCV MCH MCHC Plt Count Seg Neuts % (Manual) Lymphocytes % (Manual) Seg Neutrophils # Man Monocytes # (Manual) Basophils # (Manual) PT INR POC ABG pH POC ABG pCO2 POC ABG pO2 VBG pH Sodium Potassium Chloride Carbon Dioxide BUN Creatinine Glucose POC Glucose 148 H 156 H 137 H Lactic Acid Calcium Phosphorus Magnesium Total Creatine Kinase CK-MB (CK-2) Troponin T C-Reactive Protein Total Protein Albumin Triglycerides HDL Cholesterol TSH Urine WBC (Auto) 11/12/17 11/12/17 11/12/17 04:42 05:06 05:34 WBC RBC MCV MCH MCHC Plt Count Seg Neuts % (Manual) Lymphocytes % (Manual) Seg Neutrophils # Man Monocytes # (Manual) Basophils # (Manual) PT INR POC ABG pH POC ABG pCO2 POC ABG pO2 56 L VBG pH Sodium 154 H Potassium 3.2 L D Chloride 109.8 H Carbon Dioxide BUN 32 H Creatinine 2.6 H Glucose 157 H POC Glucose 163 H Lactic Acid Calcium 7.3 L Phosphorus Magnesium Total Creatine Kinase CK-MB (CK-2) Troponin T C-Reactive Protein Total Protein Albumin Triglycerides HDL Cholesterol TSH Urine WBC (Auto) 11/12/17 11/12/17 11/12/17 05:42 06:23 06:36 WBC RBC MCV MCH MCHC Plt Count Seg Neuts % (Manual) Lymphocytes % (Manual) Seg Neutrophils # Man Monocytes # (Manual) Basophils # (Manual) PT INR POC ABG pH POC ABG pCO2 POC ABG pO2 VBG pH Sodium Potassium Chloride Carbon Dioxide BUN Creatinine Glucose POC Glucose 166 H 171 H 181 H Lactic Acid Calcium Phosphorus Magnesium Total Creatine Kinase CK-MB (CK-2) Troponin T C-Reactive Protein Total Protein Albumin Triglycerides HDL Cholesterol TSH Urine WBC (Auto) 11/12/17 11/12/17 11/12/17 07:07 08:16 12:13 WBC RBC MCV MCH MCHC Plt Count Seg Neuts % (Manual) Lymphocytes % (Manual) Seg Neutrophils # Man Monocytes # (Manual) Basophils # (Manual) PT INR POC ABG pH POC ABG pCO2 POC ABG pO2 VBG pH Sodium Potassium Chloride Carbon Dioxide BUN Creatinine Glucose POC Glucose 170 H 171 H 123 H Lactic Acid Calcium Phosphorus Magnesium Total Creatine Kinase CK-MB (CK-2) Troponin T C-Reactive Protein Total Protein Albumin Triglycerides HDL Cholesterol TSH Urine WBC (Auto) 11/12/17 12:13 WBC RBC MCV MCH MCHC Plt Count Seg Neuts % (Manual) Lymphocytes % (Manual) Seg Neutrophils # Man Monocytes # (Manual) Basophils # (Manual) PT INR POC ABG pH 7.316 L POC ABG pCO2 57.4 H POC ABG pO2 46 L VBG pH Sodium Potassium Chloride Carbon Dioxide BUN Creatinine Glucose POC Glucose Lactic Acid Calcium Phosphorus Magnesium Total Creatine Kinase CK-MB (CK-2) Troponin T C-Reactive Protein Total Protein Albumin Triglycerides HDL Cholesterol TSH Urine WBC (Auto) Chest x-ray: image reviewed (Bilateral alveolar infitrates, subcutaneous emphysema, no PTX) Allied health notes reviewed: RT
[2017-11-12] MEDS ORDERED: ZEMURON IV NR (13:35)
--- NOTE | 2017-11-12 13:49 | Consultation ---
History of Present Illness - Reason for Consult Consult date: 11/12/17 septic shock Requesting physician: PHILIPPE MORROW - History of Present Illness 37 y/o female with history of uncontrolled DM, non compliance with diabetes meds , previous admissions due to DKA, gastroparesis; brought to the hospital on 11/10 due to be found severely lethargic by her at home. Per her , she celebrated her birthday 2 days before admission, she had some drinks with friends. The following day she developed severe nausea, vomiting and abdominal pain. She did not have any cough, SOB or cold symptoms. She did not eat cake or sweets. EMS was called and she had a glucose above 500. In the ED, temp 92, HR 72, R 16, BP 88/31. WBC 39K. Hg 11.5. Plat 469. Sodium 151. Creat 1.8. Glu 541. CXR RLL infiltrate. CT abd showed kathleen infiltrates, all cultures pending. S/ P VT cardiac arrest yesterday morning. On pressors. Microbiology: Blood cultures: 11/10 ngtd 11/11 ngtd Urine cultures: 11/10 neg Respiratory cultures: 11/11 Staph Wound cultures: Current Antimicrobials: Zosyn Vancomycin Previous Antimicrobials: Past History Past Medical History: diabetes, hypertension, other (non-compliance) Medications and Allergies Allergies Allergy/AdvReac Type Severity Reaction Status Date / Time No Known Allergies Allergy Verified 08/11/17 19:45 Home Medications Medication Instructions Recorded Confirmed Last Taken Type Insulin NPH/Regular [NovoLIN 70/30] 18 unit SUB-Q BIDDIAB #1 vial 07/07/17 Unknown Rx Levothyroxine 200 mcg PO DAILY #30 07/07/17 Unknown Rx Protonix TAB 40 mg PO DAILY #30 07/07/17 Unknown Rx Active Meds: Active Medications Acetaminophen (Tylenol) 650 mg PO Q4H PRN PRN Reason: Pain MILD(1-3)/Fever >100.5/SCHUSTER Last Admin: 11/12/17 03:08 Dose: 650 mg Dextrose (D50w (25gm) Syringe) 0 ml IV PRN PRN PRN Reason: Hypoglycemia Enoxaparin Sodium (Lovenox) 30 mg SUB-Q QDAY MAUDE Last Admin: 11/12/17 10:43 Dose: 30 mg Famotidine (Pepcid) 20 mg IV BID MAUDE Last Admin: 11/12/17 10:43 Dose: 20 mg Hydrophilic Ointment (Vaseline Lip Therapy) 1 applic TP Q2HR PRN PRN Reason: Dry Lips Insulin Human Regular 100 (units/ Sodium Chloride) 100 mls @ 1 mls/hr IV TITR MAUDE; Protocol Last Titration: 11/12/17 12:15 Dose: 4.5 units/hr, 4.5 mls/hr Piperacillin Sod/Tazobactam Sod (Zosyn/Ns 2.25 Gm/50ml) 2.25 gm in 50 mls @ 100 mls/hr IV Q6HR MAUDE Last Admin: 11/12/17 05:51 Dose: 100 mls/hr Vancomycin HCl (Vancomycin/Ns 1 Gm/250 Ml) 1 gm in 250 mls @ 167.007 mls/hr IV Q24H MAUDE; Protocol Last Admin: 11/11/17 22:45 Dose: 167.007 mls/hr Amiodarone HCl 900 mg/ (Dextrose) 500 mls @ 33.33 mls/hr IV DIRECT MAUDE; Protocol Stop: 11/13/17 07:00 Last Admin: 11/12/17 02:47 Dose: 0.5 mg/min, 16.66 mls/hr Vasopressin 20 unit/ Sodium (Chloride) 101 mls @ 9.09 mls/hr IV TITR MAUDE; Protocol Last Admin: 11/12/17 11:31 Dose: 0.03 units/min, 9.09 mls/hr Midazolam HCl 100 mg/ Sodium (Chloride) 100 mls @ 2 mls/hr IV TITR MAUDE; Protocol Last Titration: 11/11/17 20:10 Dose: 0 mg/hr, 0 mls/hr Norepinephrine 8 mg/ Sodium (Chloride) 250 mls @ 3.75 mls/hr IV TITR MAUDE; Protocol Last Titration: 11/12/17 13:05 Dose: 15 mcg/min, 28.12 mls/hr Sodium Bicarbonate 100 meq/ (Dextrose) 1,100 mls @ 150 mls/hr IV DIRECT MAUDE Last Admin: 11/12/17 11:32 Dose: 150 mls/hr Azithromycin 500 mg/ Sodium (Chloride) 250 mls @ 250 mls/hr IV Q24HR MAUDE Last Admin: 11/12/17 10:44 Dose: 250 mls/hr Epinephrine 8 mg/ Sodium (Chloride) 250 mls @ 3.75 mls/hr IV TITR MAUDE; Protocol Last Titration: 11/12/17 09:39 Dose: 10 mcg/min, 18.75 mls/hr Dopamine HCl/Dextrose (Intropin Drip 800 Mg/D5w 250 Ml) 800 mg in 250 mls @ 2.381 mls/hr IV TITR MAUDE; Protocol Last Titration: 11/11/17 21:07 Dose: 0 mcg/kg/min, 0 mls/hr Phenylephrine HCl 100 mg/ (Sodium Chloride) 100 mls @ 3 mls/hr IV TITR MAUDE; Protocol Potassium Chloride 20 meq/ (Dextrose/Sodium Chloride) 1,010 mls @ 75 mls/hr IV DIRECT MAUDE Fentanyl Citrate (Fentanyl Drip Premix) 2,000 mcg in 100 mls @ 3.175 mls/hr IV TITR MAUDE; Protocol Levothyroxine Sodium (Synthroid) 100 mcg IV DAILY@0600 [facility] Last Admin: 11/12/17 10:43 Dose: 100 mcg Methylprednisolone Sodium Succinate (Solu-Medrol) 60 mg IV Q6HR [facility] Last Admin: 11/12/17 05:52 Dose: 60 mg Multi-Ingred Cream/Lotion/Oil/Oint (Artificial Tears Ophth Oint) 1 applic OU Q4HR PRN PRN Reason: Dry Eye(s) Ondansetron HCl (Zofran) 4 mg IV Q8H PRN PRN Reason: Nausea And Vomiting Rocuronium [place] (Zemuron) 50 mg IV ONCE NR Stop: 11/12/17 14:35 Sodium Chloride (Sodium Chloride Flush Syringe 10 Ml) 10 ml IV BID [facility] Last Admin: 11/12/17 10:46 Dose: 10 ml Sodium Chloride (Sodium Chloride Flush Syringe 10 Ml) 10 ml IV PRN PRN PRN Reason: LINE FLUSH Sodium Chloride (Nacl 0.9% 500 Ml) 1 ml IV DIRECT MAUDE Vancomycin HCl (Vancomycin Pharmacy To Dose) 1 each IV PKCONSULT [facility] Review of Systems ROS unobtainable: due to endotracheal tube, due to mental status Physical Examination - Physical Exam Narrative exam: General appearance: sedated on the vent FiO2 100% Eyes: anicteric sclerae, moist conjunctivae; no lid-lag; PERRLA HENT: Atraumatic; oropharynx +ETT +NGT Neck: Trachea midline; supple, no thyromegaly or lymphadenopathy Lungs: CTA, with normal respiratory effort and no intercostal retractions CV:tachy Abdomen: Soft, non-tender Extremities: kathleen legs peripheral edema Skin: Normal temperature, turgor and texture; no rash, ulcers or subcutaneous nodules Psych: sedated. Neuro: sedated Lines: - Constitutional Vitals: Vital Signs Temp Pulse Resp BP Pulse Ox 100.3 F H 136 H 12 130/79 75 L 11/12/17 12:00 11/12/17 13:30 11/12/17 10:30 11/12/17 13:30 11/12/17 13:30 Temperature -Last 24 Hours Temperature 100.3 F Temperature 99.4 F Temperature 103 F Temperature 103.0 F Temperature 99.0 F Temperature 102.8 F Temperature 99.9 F Results - Labs CBC & Chem 7: 11/11/17 10:45 11/12/17 05:06 Labs: Abnormal lab results 11/11/17 11/11/17 11/11/17 Range/Units 08:50 09:57 11:12 POC ABG pH (7.35-7.45) POC ABG pCO2 (35-45) POC ABG pO2 (80-105) Sodium (137-145) mmol/L Potassium (3.6-5.0) mmol/L Chloride (98-107) mmol/L Carbon Dioxide (22-30) mmol/L BUN (7-17) mg/dL Creatinine (0.7-1.2) mg/dL Glucose (65-100) mg/dL POC Glucose 256 H 232 H 246 H (70-105) Calcium (8.4-10.2) mg/dL 11/11/17 11/11/17 11/11/17 Range/Units 13:58 14:53 15:42 POC ABG pH (7.35-7.45) POC ABG pCO2 (35-45) POC ABG pO2 (80-105) Sodium (137-145) mmol/L Potassium (3.6-5.0) mmol/L Chloride (98-107) mmol/L Carbon Dioxide (22-30) mmol/L BUN (7-17) mg/dL Creatinine (0.7-1.2) mg/dL Glucose (65-100) mg/dL POC Glucose 244 H 273 H 311 H (70-105) Calcium (8.4-10.2) mg/dL 11/11/17 11/11/17 11/11/17 Range/Units 16:08 17:09 18:41 POC ABG pH (7.35-7.45) POC ABG pCO2 (35-45) POC ABG pO2 (80-105) Sodium 153 H D (137-145) mmol/L Potassium 3.3 L (3.6-5.0) mmol/L Chloride 112.6 H (98-107) mmol/L Carbon Dioxide 14 L D (22-30) mmol/L BUN 30 H (7-17) mg/dL Creatinine 2.1 H (0.7-1.2) mg/dL Glucose 301 H (65-100) mg/dL POC Glucose 337 H 262 H (70-105) Calcium 7.8 L D (8.4-10.2) mg/dL 11/11/17 11/11/17 11/11/17 Range/Units 19:49 20:14 20:25 POC ABG pH (7.35-7.45) POC ABG pCO2 (35-45) POC ABG pO2 (80-105) Sodium 154 H (137-145) mmol/L Potassium 2.7 L* (3.6-5.0) mmol/L Chloride 110.8 H (98-107) mmol/L Carbon Dioxide 20 L (22-30) mmol/L BUN 31 H (7-17) mg/dL Creatinine 2.4 H (0.7-1.2) mg/dL Glucose 261 H (65-100) mg/dL POC Glucose 281 H 265 H (70-105) Calcium 7.9 L (8.4-10.2) mg/dL 11/11/17 11/11/17 11/11/17 Range/Units 20:53 21:55 23:17 POC ABG pH (7.35-7.45) POC ABG pCO2 (35-45) POC ABG pO2 (80-105) Sodium (137-145) mmol/L Potassium (3.6-5.0) mmol/L Chloride (98-107) mmol/L Carbon Dioxide (22-30) mmol/L BUN (7-17) mg/dL Creatinine (0.7-1.2) mg/dL Glucose (65-100) mg/dL POC Glucose 274 H 209 H 180 H (70-105) Calcium (8.4-10.2) mg/dL 11/12/17 11/12/17 11/12/17 Range/Units 00:09 00:26 01:12 POC ABG pH (7.35-7.45) POC ABG pCO2 (35-45) POC ABG pO2 (80-105) Sodium 154 H (137-145) mmol/L Potassium (3.6-5.0) mmol/L Chloride 113.1 H (98-107) mmol/L Carbon Dioxide 17 L (22-30) mmol/L BUN 34 H (7-17) mg/dL Creatinine 2.5 H (0.7-1.2) mg/dL Glucose 144 H (65-100) mg/dL POC Glucose 176 H 148 H (70-105) Calcium 7.7 L (8.4-10.2) mg/dL 11/12/17 11/12/17 11/12/17 Range/Units 02:05 03:27 04:22 POC ABG pH (7.35-7.45) POC ABG pCO2 (35-45) POC ABG pO2 (80-105) Sodium (137-145) mmol/L Potassium (3.6-5.0) mmol/L Chloride (98-107) mmol/L Carbon Dioxide (22-30) mmol/L BUN (7-17) mg/dL Creatinine (0.7-1.2) mg/dL Glucose (65-100) mg/dL POC Glucose 148 H 156 H 137 H (70-105) Calcium (8.4-10.2) mg/dL 11/12/17 11/12/17 11/12/17 Range/Units 04:42 05:06 05:34 POC ABG pH (7.35-7.45) POC ABG pCO2 (35-45) POC ABG pO2 56 L (80-105) Sodium 154 H (137-145) mmol/L Potassium 3.2 L D (3.6-5.0) mmol/L Chloride 109.8 H (98-107) mmol/L Carbon Dioxide (22-30) mmol/L BUN 32 H (7-17) mg/dL Creatinine 2.6 H (0.7-1.2) mg/dL Glucose 157 H (65-100) mg/dL POC Glucose 163 H (70-105) Calcium 7.3 L (8.4-10.2) mg/dL 11/12/17 11/12/17 11/12/17 Range/Units 05:42 06:23 06:36 POC ABG pH (7.35-7.45) POC ABG pCO2 (35-45) POC ABG pO2 (80-105) Sodium (137-145) mmol/L Potassium (3.6-5.0) mmol/L Chloride (98-107) mmol/L Carbon Dioxide (22-30) mmol/L BUN (7-17) mg/dL Creatinine (0.7-1.2) mg/dL Glucose (65-100) mg/dL POC Glucose 166 H 171 H 181 H (70-105) Calcium (8.4-10.2) mg/dL 11/12/17 11/12/17 11/12/17 Range/Units 07:07 08:16 12:13 POC ABG pH (7.35-7.45) POC ABG pCO2 (35-45) POC ABG pO2 (80-105) Sodium (137-145) mmol/L Potassium (3.6-5.0) mmol/L Chloride (98-107) mmol/L Carbon Dioxide (22-30) mmol/L BUN (7-17) mg/dL Creatinine (0.7-1.2) mg/dL Glucose (65-100) mg/dL POC Glucose 170 H 171 H 123 H (70-105) Calcium (8.4-10.2) mg/dL 11/12/17 Range/Units 12:13 POC ABG pH 7.316 L (7.35-7.45) POC ABG pCO2 57.4 H (35-45) POC ABG pO2 46 L (80-105) Sodium (137-145) mmol/L Potassium (3.6-5.0) mmol/L Chloride (98-107) mmol/L Carbon Dioxide (22-30) mmol/L BUN (7-17) mg/dL Creatinine (0.7-1.2) mg/dL Glucose (65-100) mg/dL POC Glucose (70-105) Calcium (8.4-10.2) mg/dL Assessment and Plan Assessment: 1) Severe Sepsis with septic shock/hypolemic shock: Present on admission, manifested by fever, tachycardia, hypotension, leukocytosis. Etiology most likely due to pneumonia +/- DKA/N/V. Currently on 3 pressors. S/P VT cardiac arrest -blood cx neg -TTE neg 2) Bilateral pneumonia - likely aspiration pneumonia -tracheal asp +Staph 3) DKA 4) Acute encephalopathy 5) Acute resp failure 6) Hyponatremia 7) LOC Plan: -follow-up blood cultures -contact isolation until MRSA is r/o -continue zosyn and vanco -keep MAP >65 - currently MAP 105 on 3 pressors Guarded prognosis, discussed w Thank you for your consultation, will follow up with you. Nat Reeves MD Infectious Diseases Specialist [facility] ([facility] M [phone] O [phone]
[2017-11-12] MEDS: fentaNYL DRIP Premix 2,000 MCG/100 ML BAG IV SCH (14:10)
--- NOTE | 2017-11-12 14:30 | Event Note ---
Date: 11/12/17 Discussed extensively with her mother at the bedside. She does not want her transferred to [facility]. She wants to keep her at this hospital, full code until the patient's sister comes. she also wants the patient's sons to come and visit. Will call [facility] transfer center to give an update.
--- NOTE | 2017-11-12 14:55 | XRay Report ---
FINAL REPORT PROCEDURE: XR CHEST 1V AP TECHNIQUE: Chest radiograph anteroposterior view. CPT 42046 HISTORY: Subcutaneous emphysema COMPARISON: 11/12/2017 FINDINGS: Heart: Normal. Mediastinum/Vessels: There is pneumomediastinum outlining the inferior heart border Lungs/Pleural space: Bilateral peripheral lower lung airspace opacities are present. No pneumothorax or pleural effusion is visible. Bony thorax: No acute osseous abnormality. Life support devices: Endotracheal tube tip projects 5.7 centimeters superior to the sukhjinder. Right central venous catheter tip is in the superior vena cava. Nasogastric tube tip projects into the upper abdomen. IMPRESSION: Pneumomediastinum and subcutaneous emphysema. Bilateral pulmonary airspace infiltrates.
[2017-11-12] MEDS ORDERED: ALBUTEIN IV ONE (15:00)
[2017-11-12] MEDS: NIMBEX IV SCH ×5 (15:30→22:26)
[2017-11-12] MEDS: NACL 0.9% IV SCH ×5 (15:30→22:26)
[2017-11-12 18:32] LABS: Hematocrit 29.4 % (30.3-42.9); Hemoglobin 10.2 gm/dl (10.1-14.3); Mean Corpuscular HGB Conc 35 % (30-34); Mean Corpuscular Hemoglobin 32 pg (28-32); Mean Corpuscular Volume 94 fl (79-97); Platelet Count 115 K/mm3 (140-440); Red Blood Count 3.15 M/mm3 (3.65-5.03); Red Cell Distribution Width 14.4 % (13.2-15.2)
[2017-11-12 19:01] LABS: Calcium 6.6 mg/dL (8.4-10.2)
[2017-11-12 19:46] LABS: Basophils % (Manual) 0 % (0.0-1.8); Eosinophils % (Manual) 0 % (0.0-4.3); RBC Morphology Normal; Total Cells Counted 100
[2017-11-12 22:20] LABS: Calcium 6.3 mg/dL (8.4-10.2)
[2017-11-12] MEDS: VANCOMYCIN/NS 1 GM/250 ML 1 GM/250 ML BAG IV SCH (23:48)
[2017-11-12] MEDS: LACTATED RINGERS 1,000 ML IV SCH (23:49)
[2017-11-13] MEDS: ZOSYN/NS 2.25 GM/50ML 2.25 GM/50 ML BAG IV SCH ×4 (00:02→22:37)
[2017-11-13] MEDS: PEPCID IV SCH ×2 (00:02→10:21)
[2017-11-13] MEDS: SODIUM CHLORIDE FLUSH SYRINGE 10 ML IV SCH ×3 (00:03→22:37)
[2017-11-13] MEDS: NIMBEX IV SCH ×16 (00:40→23:24)
[2017-11-13] MEDS: NACL 0.9% IV SCH ×16 (00:40→23:24)
[2017-11-13] MEDS ORDERED: CALCIUM CHLORIDE 1,000 MG in NACL 0.9% 100 ML IV ONE (00:51)
--- NOTE | 2017-11-13 01:29 | Event Note ---
Date: 11/13/17 ABG just drawn on current vent settings.. 7./pAO2 50 Currently on a paralytic with ZHANNA 3 to 1, airway pressures 40. Discussed with RT to increased ZHANNA 3.8 to1. Permissive hypercapnia with ongoing lung protective strategies will continue to be employed. If pH <7.2, will use bicarbonate supplementation to adjust acid-base With ongoing severe hypoxemia, and in the absence of other options such as prone positioning; she is not a candidate for ECMO, prognosis remains grave. She is on multiple vasopressors and has worsening renal failure. If her mother remains unwilling to transfer to another center with more resources and with in the setting of the prolonged hypoxemia, she will need to re-address goals of care.
[2017-11-13] MEDS: CLEOCIN 600 MG/50 mL 600 MG/50 ML BAG IV SCH ×3 (02:23→18:18)
[2017-11-13] MEDS: LEVOPHED 8 MG in NACL 0.9% 250ML 242 ML IV SCH ×5 (03:52→23:32)
[2017-11-13] MEDS: ADRENALIN 8 MG in NACL 0.9% 250ML 242 ML IV SCH (03:55)
[2017-11-13] MEDS: TYLENOL PO PRN (06:18)
[2017-11-13] MEDS: SYNTHROID IV SCH (06:18)
[2017-11-13] MEDS: CORDARONE 900 MG in D5W 482 ML IV SCH (06:20)
[2017-11-13 06:44] LABS: Hematocrit 32.9 % (30.3-42.9); Hemoglobin 10.8 gm/dl (10.1-14.3); Mean Corpuscular HGB Conc 33 % (30-34); Mean Corpuscular Hemoglobin 32 pg (28-32); Mean Corpuscular Volume 97 fl (79-97)
[2017-11-13 06:55] LABS: Calcium 6.6 mg/dL (8.4-10.2)
[2017-11-13] MEDS ORDERED: SODIUM BICARBONATE IV ONE (06:56)
[2017-11-13 07:00] LABS: Platelet Count 99 K/mm3 (140-440)
[2017-11-13] MEDS: Vasostrict 20 UNIT in NACL 0.9% 100 ML IV SCH (07:40)
[2017-11-13] MEDS ORDERED: PFIZERPEN IV SCH (08:00)
--- NOTE | 2017-11-13 08:00 | Event Note ---
Date: 11/13/17 Received a call from Nursing Staff Yasmine who noted a right submadibular wound - see picture. Patient with fever 103. Requested CT head and neck, however patient too sick to go down CT scanner on 3 pressors, FIO2 100%, P 20). Requested to start clindamycin IV. After evaluating the picture and in light of family report of a previous dental abscess, my clinical inclination is that she may have Actinomycosis. I am adding Penicillin G. She needs evaluation by [facility], however unable to do transfer due to above conditions. Discussed with Dr Martinez. Consult general surgery for possible I+D. Obtain wound culture for aerobic and anaerobics.
[2017-11-13] MEDS ORDERED: MAGNESIUM SULFATE 2GM/50ML 2 GM/50 ML BAG IV ONE (08:21)
--- NOTE | 2017-11-13 08:23 | Progress Note ---
Assessment and Plan 1. Acute kidney injury: LOC in the setting of volume depletion and DKA. Renal function continue to decline due to septic shock. Continue IV fluids. 2. Electrolytes: Severe metabolic acidosis, improving. Hypernatremia, improved. 3. Septic shock: On Levophed, Epinephrine and Vasopressin. 4. DKA: Insulin drip. 5. Respiratory failure: On vent. 6. S/p Cardiac arrest. 7. Encephalopathy. Prognosis is guarded. Subjective Date of service: 11/13/17 Principal diagnosis: s/p cardiac arrest Interval history: Patient was seen and examined at the bedside. Objective - Vital Signs Vital signs: Vital Signs - 12hr 11/12/17 11/12/17 11/12/17 20:29 20:30 20:45 Temperature Pulse Rate 117 H 119 H 117 H Respiratory 30 H 30 H Rate Blood Pressure 112/73 112/73 104/64 O2 Sat by Pulse 93 92 93 Oximetry 11/12/17 11/12/17 11/12/17 21:00 21:02 21:15 Temperature Pulse Rate 117 H 119 H 115 H Respiratory 30 H 30 H 30 H Rate Blood Pressure 111/63 111/63 100/56 O2 Sat by Pulse 91 92 89 Oximetry 11/12/17 11/12/17 11/12/17 21:30 21:45 22:00 Temperature Pulse Rate 109 H 108 H 107 H Respiratory 30 H 30 H 30 H Rate Blood Pressure 99/54 91/47 82/44 O2 Sat by Pulse 88 86 87 Oximetry 11/12/17 11/12/17 11/12/17 22:16 22:30 22:45 Temperature Pulse Rate 106 H 111 H 112 H Respiratory 30 H 30 H 30 H Rate Blood Pressure 98/53 98/46 99/59 O2 Sat by Pulse 85 88 88 Oximetry 11/12/17 11/12/17 11/12/17 23:00 23:16 23:30 Temperature Pulse Rate 114 H 112 H 112 H Respiratory 30 H 30 H 30 H Rate Blood Pressure 104/56 104/48 93/48 O2 Sat by Pulse 88 88 86 Oximetry 11/12/17 11/12/17 11/12/17 23:34 23:40 23:46 Temperature 103.0 F H Pulse Rate 111 H 112 H Respiratory 30 H Rate Blood Pressure 93/48 83/49 O2 Sat by Pulse 90 Oximetry 0711/13/17 11/13/17 23:59 00:00 00:15 Temperature 103.0 F H Pulse Rate 111 H 111 H Respiratory 30 H 30 H Rate Blood Pressure 88/46 85/55 O2 Sat by Pulse 91 91 Oximetry 11/13/17 11/13/17 11/13/17 00:30 00:46 01:00 Temperature Pulse Rate 112 H 110 H 109 H Respiratory 30 H 30 H 30 H Rate Blood Pressure 85/55 112/70 85/55 O2 Sat by Pulse 94 93 82 L Oximetry 11/13/17 11/13/17 11/13/17 01:16 01:17 01:30 Temperature Pulse Rate 110 H 115 H 120 H Respiratory 32 H 31 H Rate Blood Pressure 100/52 100/52 95/50 O2 Sat by Pulse 83 L 90 Oximetry 11/13/17 11/13/17 11/13/17 01:45 02:00 02:15 Temperature Pulse Rate 118 H 116 H 116 H Respiratory 30 H 28 H 28 H Rate Blood Pressure 98/53 93/58 100/57 O2 Sat by Pulse 100 Oximetry 11/13/17 11/13/17 11/13/17 02:30 02:45 03:00 Temperature Pulse Rate 116 H 116 H 115 H Respiratory 28 H 28 H 28 H Rate Blood Pressure 103/59 96/51 88/54 O2 Sat by Pulse 99 98 Oximetry 11/13/17 11/13/17 11/13/17 04:00 06:24 07:48 Temperature 102.8 F H Pulse Rate 114 H 111 H Respiratory Rate Blood Pressure 110/63 136/89 O2 Sat by Pulse 98 100 Oximetry - General Appearance General appearance: well-developed, appears stated age, sedated on ventilator ( FiO2 100%), intubated EENT: other (right lower jaw ulcer) Neck: supple Respiratory: Present: Other (coarse breath sounds) Cardiology: regular, S1S2 Gastrointestinal: normoactive bowel sounds Integumentary: no rash Neurologic: obtunded Musculoskeletal: other (no edema) - Lab 11/13/17 06:00 11/13/17 20:22 Most recent lab results Calcium 6.6 mg/dL (8.4-10.2) L 11/13/17 06:00 Phosphorus 4.90 mg/dL (2.5-4.5) H 11/13/17 06:00 Magnesium 1.20 mg/dL (1.7-2.3) L 11/13/17 06:00
--- NOTE | 2017-11-13 08:44 | Ultrasound Report ---
FINAL REPORT EXAM: US SOFT TISSUE HEAD AND NECK HISTORY: history of abscess COMPARISONS: None. FINDINGS: Targeted grayscale and color Doppler ultrasound evaluation of the neck In the right submandibular region of concern there is mild subcutaneous edema without focal fluid collection. Non hyperemic lymph node with preserved fatty and vascular hilum measures approximately 1.4 x 1.3 x 0.4 cm. Imaged portions of the remaining neck are grossly unremarkable. IMPRESSION: No focal fluid collection within the imaged neck. There is subcutaneous edema, which may be due to infectious or inflammatory cellulitis. Clinical correlation is requested.
[2017-11-13] MEDS ORDERED: ATIVAN 100 MG in NACL 0.9% 50 ML, VIAFLEX EMPTY CONTAINER 0 ML IV SCH (09:00)
[2017-11-13] MEDS: PFIZERPEN 4 MIL.UNITS in NACL 0.9% 50 ML IV SCH ×2 (09:22→18:16)
[2017-11-13] MEDS: LACTATED RINGERS 1,000 ML IV SCH (09:40)
[2017-11-13] MEDS: LOVENOX SUB-Q SCH (10:20)
[2017-11-13 11:08] LABS: Calcium 6.6 mg/dL (8.4-10.2)
--- NOTE | 2017-11-13 11:24 | Progress Note ---
Assessment and Plan Respiratory failure status post intubation Status post cardiac arrest secondary to the v tach Sepsis Acute renal failure Non-ST elevation CA type II Pneumonia Hypoxemia Hypernatremia Recommend patient has been paralyzed to help better oxygenation is off of amiodarone now continue current management as per the primary team, prognosis poor Echocardiogram shows normal LV function no significant regurgitations Subjective Date of service: 11/13/17 Principal diagnosis: s/p cardiac arrest Interval history: pt is put paralytic for respiratory Objective Vital Signs Temp Pulse Pulse Resp BP Pulse Ox 11/13/17 11:00 106 H 28 H 139/94 11/13/17 10:46 109 H 28 H 160/106 100 11/13/17 10:30 110 H 28 H 163/108 100 11/13/17 10:15 109 H 28 H 160/108 100 11/13/17 10:00 108 H 28 H 159/105 100 11/13/17 09:45 108 H 28 H 157/102 100 11/13/17 09:30 108 H 28 H 157/102 100 11/13/17 09:15 108 H 28 H 157/105 100 11/13/17 09:00 106 H 28 H 152/95 11/13/17 08:45 109 H 28 H 152/95 100 11/13/17 08:30 109 H 28 H 149/95 100 11/13/17 08:15 109 H 27 H 143/94 100 11/13/17 08:00 102.5 F H 110 H 28 H 144/90 100 11/13/17 07:48 111 H 136/89 100 11/13/17 07:45 111 H 28 H 142/90 100 11/13/17 07:30 111 H 28 H 136/89 100 11/13/17 07:15 114 H 28 H 139/89 100 11/13/17 07:00 113 H 27 H 125/74 100 11/13/17 06:45 113 H 28 H 125/74 100 11/13/17 06:30 114 H 28 H 116/70 88 11/13/17 06:24 114 H 110/63 98 11/13/17 06:15 114 H 28 H 113/69 97 11/13/17 06:00 114 H 28 H 120/65 99 11/13/17 05:45 114 H 28 H 118/72 79 L 11/13/17 05:30 114 H 28 H 110/63 96 18 05:15 115 H 28 H 109/64 97 18 05:00 114 H 28 H 107/66 97 18 04:45 114 H 28 H 109/64 97 18 04:30 115 H 28 H 111/68 98 18 04:15 115 H 28 H 109/64 98 18 04:00 102.8 F H 116 H 115 H 28 H 110/63 98 18 03:45 116 H 28 H 98/62 99 18 03:30 116 H 28 H 97/59 98 18 03:15 116 H 28 H 98/54 100 11/13/17 03:00 115 H 28 H 88/54 11/13/17 02:45 116 H 28 H 96/51 98 18 02:30 116 H 28 H 103/59 99 18 02:15 116 H 28 H 100/57 100 11/13/17 02:00 116 H 28 H 93/58 18 01:45 118 H 30 H 98/53 11/13/17 01:30 120 H 31 H 95/50 18 01:17 115 H 100/52 90 18 01:16 110 H 32 H 100/52 83 L 18 01:00 109 H 30 H 85/55 82 L 18 00:46 110 H 30 H 112/70 93 18 00:30 112 H 30 H 85/55 94 18 00:15 111 H 30 H 85/55 91 18 00:00 111 H 111 H 30 H 88/46 91 /14/18 23:59 103.0 F H 07/14/18 23:46 112 H 30 H 83/49 [id number] 23:40 111 H 93/48 90 14/18 23:34 103.0 F H 18 23:30 112 H 30 H 93/48 86 18 23:16 112 H 30 H 104/48 88 18 23:00 114 H 30 H 104/56 88 18 22:45 112 H 30 H 99/59 88 11/12/17 22:30 111 H 30 H 98/46 88 18 22:16 106 H 30 H 98/53 85 11/12/17 22:00 107 H 30 H 82/44 87 11/12/17 21:45 108 H 30 H 91/47 86 18 21:30 109 H 30 H 99/54 88 18 21:15 115 H 30 H 100/56 89 11/12/17 21:02 119 H 30 H 111/63 92 11/12/17 21:00 117 H 30 H 111/63 91 18 20:45 117 H 30 H 104/64 93 18 20:30 119 H 119 H 30 H 112/73 93 11/12/17 20:29 117 H 112/73 93 11/12/17 20:16 124 H 30 H 121/81 90 11/12/17 20:00 101.6 F H 122 H 30 H 125/78 92 11/12/17 19:46 124 H 30 H 117/83 92 11/12/17 19:30 121 H 30 H 130/81 91 11/12/17 19:15 118 H 30 H 132/88 94 18 19:00 120 H 30 H 121/77 94 18 18:46 120 H 30 H 125/75 94 11/12/17 18:30 121 H 30 H 123/69 89 18 18:16 121 H 30 H 115/70 96 18 18:00 121 H 30 H 115/70 88 11/12/17 17:46 122 H 30 H 115/70 96 11/12/17 17:30 123 H 30 H 111/67 94 11/12/17 17:15 124 H 30 H 106/70 92 18 17:00 126 H 30 H 112/70 18 16:56 128 H 112/70 90 11/12/17 16:46 128 H 30 H 112/70 84 18 16:30 122 H 30 H 129/81 90 18 16:16 123 H 30 H 124/81 90 18 16:00 102.6 F H 123 H 114 H 30 H 124/81 74 L 11/12/17 15:46 123 H 30 H 124/69 07/14/18 15:30 124 H 30 H 126/80 11/12/17 15:16 124 H 30 H 126/80 88 11/12/17 15:00 125 H 30 H 123/78 11/12/17 14:46 125 H 30 H 124/73 88 11/12/17 14:30 126 H 30 H 117/76 87 11/12/17 14:16 126 H 30 H 122/77 90 11/12/17 14:00 127 H 30 H 124/81 90 11/12/17 13:46 128 H 30 H 129/81 88 11/12/17 13:30 134 H 30 H 121/77 75 L 11/12/17 13:16 129 H 30 H 130/79 82 L 11/12/17 13:00 137 H 29 H 130/83 82 L 11/12/17 12:45 118 H 14 139/91 84 11/12/17 12:30 116 H 15 135/87 11/12/17 12:16 116 H 12 148/92 83 L 11/12/17 12:00 100.3 F H 118 H 18 131/82 91 11/12/17 11:46 123 H 14 131/84 80 L 11/12/17 11:30 114 H 11 L 131/82 81 L - Physical Examination General: Other HEENT: Positive: Other (dilated 5 mm) Neck: Positive: neck supple, trachea midline Cardiac: Positive: Tachycardia Lungs: Positive: Decreased Breath Sounds Neuro: Positive: Other (intubated, nonresponsive) Abdomen: Positive: Soft Extremities: Absent: edema - Labs and Meds CBC 11/12/17 11/13/17 Range/Units 18:05 06:00 WBC 29.0 H 32.3 H (4.5-11.0) K/mm3 RBC 3.15 L 3.40 L (3.65-5.03) M/mm3 Hgb 10.2 D 10.8 (10.1-14.3) gm/dl Hct 29.4 L D 32.9 (30.3-42.9) % Plt Count 115 L 99 L (140-440) K/mm3 Comprehensive Metabolic Panel 11/12/17 11/12/17 11/13/17 Range/Units 18:05 21:30 01:30 Sodium 148 H 146 H 146 H (137-145) mmol/L Potassium 4.5 D 4.0 4.9 D (3.6-5.0) mmol/L Chloride 103.5 105.3 104.8 (98-107) mmol/L Carbon Dioxide 26 27 24 (22-30) mmol/L BUN 34 H 35 H 36 H (7-17) mg/dL Creatinine 2.9 H 3.2 H 3.4 H (0.7-1.2) mg/dL Glucose 147 H 120 H 143 H (65-100) mg/dL Calcium 6.6 L 6.3 L 6.0 L (8.4-10.2) mg/dL 11/13/17 11/13/17 Range/Units 06:00 10:30 Sodium 142 145 (137-145) mmol/L Potassium 4.5 4.2 (3.6-5.0) mmol/L Chloride 101.6 103.5 (98-107) mmol/L Carbon Dioxide 23 25 (22-30) mmol/L BUN 39 H 41 H (7-17) mg/dL Creatinine 3.8 H 4.0 H (0.7-1.2) mg/dL Glucose 182 H 127 H (65-100) mg/dL Calcium 6.6 L 6.6 L (8.4-10.2) mg/dL - Imaging and Cardiology EKG: report reviewed, image reviewed Echo: report reviewed (11/11/2017 normal lv function, no signficant regurgitations) - Telemetry EKG Rhythm: Sinus Tachycardia - EKG Sinus rhythms and dysrhythmias: sinus tachycardia - Allied health notes Allied health notes reviewed: RT
--- NOTE | 2017-11-13 11:28 | Progress Note ---
Assessment and Plan Acute hypoxemic respiratory failure.. s/p cardiorespiratory arrest Subcutaneous emphysema DKA Severe Sepsis with septic shock Severe metabolic acidosis Acute renal failure ARDS Hypernatremia Encephalopathy, metabolic -VAP bundle addressed -Oxygenation much improved. Remains very tenuous. With small left apical PTX, decrease PEEP and follow clinically and radiographically. If any acute hemodynamic instability or increase on the size of the PTX on follow up imaging will plan on Hiemliech valve placement -Antibiotics per ID -Cardiology following -No urgent need for HD at this time -Vasopressor support to keep MAP>65 -Paralytics with TOF monitoring for another 24 hours, and review -Correct electrolyte abnormalities, give calcium - Continue steroids for vasopressor unresponsive shock -ABG and CXR qam and prn -Discontinue bicarbonate infusion, use crystalloids for intravascular volume expansion. Once she is off vasopressor support, plan to use volume restrictive strategies -Nutritional support, trophic feeding -Insulin infusion for glycemic control Full code Prognosis is grave Discussed extensively with the hospitalist service Discussed with ID attending Discussed with her mother extensively The high probability of a clinically significant, sudden or life threatening deterioration of the [multiple] system(s) required my full and direct attention , intervention and personal management. The aggregate critical care time was [65 ] minutes. This time is in addition to time spent performing reported procedures but includes the following: [x] Data Review and interpretation [x] Patient assessment and monitoring of vital signs [x] Documentation [x] Medication orders and management Subjective Date of service: 11/13/17 Principal diagnosis: s/p cardiac arrest Interval history: 37 y/o female with history of uncontrolled DM, non compliance with diabetes meds , previous admissions due to DKA, gastroparesis; brought to the hospital on 11/10 severely lethargic by her common law at home. Per her , she celebrated her birthday 2 days before admission, she had some drinks with friends. The following day she developed severe nausea, vomiting and abdominal pain. She did not have any cough, SOB or cold symptoms. She did not eat cake or sweets. EMS was called and she had a glucose above 500. In the ED, temp 92, HR 72, R 16, BP 88/31. WBC 39K. Hg 11.5. Plat 469. Sodium 151. Creat 1.8. Glu 541. CXR RLL infiltrate . Intubated in the ER. S/P PEA cardiac arrest Patient is seen today for: Acute hypoxic respiratory, severe sepsis with septic shock, LOC, Acute encephalopathy, s/p cardiac arrest (PEA) Seen and examined at bedside; 24hour events reviewed; nursing and respiratory care staff consulted; events overnight noted. On going fevers, oxygenating better, weaning off vasopressors very slowly Remains on paralytics Objective - Exam Narrative Exam: General appearance: Acutely ill looking with moderate respiratory distress, orally intubated Patient-ventilator synchrony, parlyzed with Nimbex. Currently on a 1:1.8 inverse ratio Subcutaneous emphysema Eyes: anicteric sclerae, moist conjunctivae; Pupils are reactive to light HENT: Atraumatic; oropharynx +ETT +NGT Neck: Trachea midline; supple, no thyromegaly or lymphadenopathy Lungs: CTA, with normal respiratory effort and no intercostal retractions CV:Tachycardia, S1,S2 Abdomen: Soft, non-tender , mildly distended Extremities: Bilateral lower extremity edema 1+ Skin: Normal temperature, turgor and texture; no rash, ulcers or subcutaneous nodules Neuro: minimally responsive, grimaces to pain, not obeying commands, on fentanyl infusion Lines: Right subclavian CVC Vital Signs - 12hr 11/12/17 11/12/17 11/12/17 23:30 23:34 23:40 Temperature 103.0 F H Pulse Rate 112 H 111 H Pulse Rate [ From Monitor] Respiratory 30 H Rate Blood Pressure 93/48 93/48 O2 Sat by Pulse 86 90 Oximetry 11/12/17 11/12/17 11/13/17 23:46 23:59 00:00 Temperature 103.0 F H Pulse Rate 112 H 111 H Pulse Rate [ 111 H From Monitor] Respiratory 30 H 30 H Rate Blood Pressure 83/49 88/46 O2 Sat by Pulse 91 Oximetry 11/13/17 11/13/17 11/13/17 00:15 00:30 00:46 Temperature Pulse Rate 111 H 112 H 110 H Pulse Rate [ From Monitor] Respiratory 30 H 30 H 30 H Rate Blood Pressure 85/55 85/55 112/70 O2 Sat by Pulse 91 94 93 Oximetry 11/13/17 11/13/17 11/13/17 01:00 01:16 01:17 Temperature Pulse Rate 109 H 110 H 115 H Pulse Rate [ From Monitor] Respiratory 30 H 32 H Rate Blood Pressure 85/55 100/52 100/52 O2 Sat by Pulse 82 L 83 L 90 Oximetry 11/13/17 11/13/17 11/13/17 01:30 01:45 02:00 Temperature Pulse Rate 120 H 118 H 116 H Pulse Rate [ From Monitor] Respiratory 31 H 30 H 28 H Rate Blood Pressure 95/50 98/53 93/58 O2 Sat by Pulse Oximetry 11/13/17 11/13/17 11/13/17 02:15 02:30 02:45 Temperature Pulse Rate 116 H 116 H 116 H Pulse Rate [ From Monitor] Respiratory 28 H 28 H 28 H Rate Blood Pressure 100/57 103/59 96/51 O2 Sat by Pulse 100 99 98 Oximetry 11/13/17 11/13/17 11/13/17 03:00 03:15 03:30 Temperature Pulse Rate 115 H 116 H 116 H Pulse Rate [ From Monitor] Respiratory 28 H 28 H 28 H Rate Blood Pressure 88/54 98/54 97/59 O2 Sat by Pulse 100 98 Oximetry 11/13/17 11/13/17 11/13/17 03:45 04:00 04:15 Temperature 102.8 F H Pulse Rate 116 H 116 H 115 H Pulse Rate [ 115 H From Monitor] Respiratory 28 H 28 H 28 H Rate Blood Pressure 98/62 110/63 109/64 O2 Sat by Pulse 99 98 98 Oximetry 11/13/17 11/13/17 11/13/17 04:30 04:45 05:00 Temperature Pulse Rate 115 H 114 H 114 H Pulse Rate [ From Monitor] Respiratory 28 H 28 H 28 H Rate Blood Pressure 111/68 109/64 107/66 O2 Sat by Pulse 98 97 97 Oximetry 11/13/17 11/13/17 11/13/17 05:15 05:30 05:45 Temperature Pulse Rate 115 H 114 H 114 H Pulse Rate [ From Monitor] Respiratory 28 H 28 H 28 H Rate Blood Pressure 109/64 110/63 118/72 O2 Sat by Pulse 97 96 79 L Oximetry 11/13/17 11/13/17 11/13/17 06:00 06:15 06:24 Temperature Pulse Rate 114 H 114 H 114 H Pulse Rate [ From Monitor] Respiratory 28 H 28 H Rate Blood Pressure 120/65 113/69 110/63 O2 Sat by Pulse 99 97 98 Oximetry 11/13/17 11/13/17 11/13/17 06:30 06:45 07:00 Temperature Pulse Rate 114 H 113 H 113 H Pulse Rate [ From Monitor] Respiratory 28 H 28 H 27 H Rate Blood Pressure 116/70 125/74 125/74 O2 Sat by Pulse 88 100 100 Oximetry 11/13/17 11/13/17 11/13/17 07:15 07:30 07:45 Temperature Pulse Rate 114 H 111 H 111 H Pulse Rate [ From Monitor] Respiratory 28 H 28 H 28 H Rate Blood Pressure 139/89 136/89 142/90 O2 Sat by Pulse 100 100 100 Oximetry 11/13/17 11/13/17 11/13/17 07:48 08:00 08:15 Temperature 102.5 F H Pulse Rate 111 H 110 H 109 H Pulse Rate [ From Monitor] Respiratory 28 H 27 H Rate Blood Pressure 136/89 144/90 143/94 O2 Sat by Pulse 100 100 100 Oximetry 11/13/17 11/13/17 11/13/17 08:30 08:45 09:00 Temperature Pulse Rate 109 H 109 H 106 H Pulse Rate [ From Monitor] Respiratory 28 H 28 H 28 H Rate Blood Pressure 149/95 152/95 152/95 O2 Sat by Pulse 100 100 Oximetry 11/13/17 11/13/17 11/13/17 09:15 09:30 09:45 Temperature Pulse Rate 108 H 108 H 108 H Pulse Rate [ From Monitor] Respiratory 28 H 28 H 28 H Rate Blood Pressure 157/105 157/102 157/102 O2 Sat by Pulse 100 100 100 Oximetry 11/13/17 11/13/17 11/13/17 10:00 10:15 10:30 Temperature Pulse Rate 108 H 109 H 110 H Pulse Rate [ From Monitor] Respiratory 28 H 28 H 28 H Rate Blood Pressure 159/105 160/108 163/108 O2 Sat by Pulse 100 100 100 Oximetry 11/13/17 11/13/17 10:46 11:00 Temperature Pulse Rate 109 H 106 H Pulse Rate [ From Monitor] Respiratory 28 H 28 H Rate Blood Pressure 160/106 139/94 O2 Sat by Pulse 100 Oximetry CBC and BMP: 11/13/17 06:00 11/13/17 16:15 ABG, PT/INR, D-dimer: ABG POC ABG pH 7.199 (7.35-7.45) L 11/13/17 06:24 POC ABG pCO2 58.3 (35-45) H 11/13/17 06:24 POC ABG pO2 70 (80-105) L 11/13/17 06:24 POC ABG HCO3 22.7 11/13/17 06:24 POC ABG Total CO2 24 11/13/17 06:24 POC ABG O2 Sat 89 11/13/17 06:24 PT/INR, D-dimer PT 18.8 Sec. (12.2-14.9) H 11/10/17 20:18 INR 1.48 (0.87-1.13) H 11/10/17 20:18 Abnormal lab findings: Abnormal Labs 11/10/17 11/10/17 11/10/17 19:54 20:18 20:18 WBC 39.8 H RBC 3.59 L Hct MCV 117 H MCH MCHC 27 L Plt Count 469 H Seg Neuts % (Manual) 93.5 H Lymphocytes % (Manual) 3.0 L Seg Neutrophils # Man 37.2 H Monocytes # (Manual) 1.0 H Basophils # (Manual) 0.2 H PT 18.8 H INR 1.48 H POC ABG pH POC ABG pCO2 POC ABG pO2 VBG pH Sodium Potassium Chloride Carbon Dioxide BUN Creatinine Glucose POC Glucose 488 H Lactic Acid Calcium Phosphorus Magnesium Total Creatine Kinase CK-MB (CK-2) Troponin T C-Reactive Protein Total Protein Albumin Triglycerides HDL Cholesterol TSH Urine WBC (Auto) 11/10/17 11/10/17 11/10/17 20:18 20:18 20:18 WBC RBC Hct MCV MCH MCHC Plt Count Seg Neuts % (Manual) Lymphocytes % (Manual) Seg Neutrophils # Man Monocytes # (Manual) Basophils # (Manual) PT INR POC ABG pH POC ABG pCO2 POC ABG pO2 VBG pH 6.763 L* Sodium 125 L Potassium 7.5 H* Chloride 82.9 L Carbon Dioxide 2 L* BUN 33 H Creatinine 1.8 H Glucose 976 H* POC Glucose Lactic Acid 3.00 H* Calcium 7.6 L Phosphorus Magnesium Total Creatine Kinase CK-MB (CK-2) Troponin T C-Reactive Protein Total Protein 6.2 L Albumin 3.5 L Triglycerides HDL Cholesterol TSH Urine WBC (Auto) 11/10/17 11/10/17 11/10/17 20:35 20:35 22:07 WBC RBC Hct MCV MCH MCHC Plt Count Seg Neuts % (Manual) Lymphocytes % (Manual) Seg Neutrophils # Man Monocytes # (Manual) Basophils # (Manual) PT INR POC ABG pH POC ABG pCO2 POC ABG pO2 VBG pH Sodium 124 L Potassium 7.6 H* Chloride 82.0 L Carbon Dioxide 3 L* BUN 33 H Creatinine 1.8 H Glucose 977 H* POC Glucose 481 H Lactic Acid Calcium 7.8 L Phosphorus 9.40 H Magnesium 2.70 H Total Creatine Kinase CK-MB (CK-2) Troponin T C-Reactive Protein Total Protein Albumin Triglycerides HDL Cholesterol TSH Urine WBC (Auto) 11/10/17 11/10/17 11/10/17 23:06 23:06 23:15 WBC RBC Hct MCV MCH MCHC Plt Count Seg Neuts % (Manual) Lymphocytes % (Manual) Seg Neutrophils # Man Monocytes # (Manual) Basophils # (Manual) PT INR POC ABG pH POC ABG pCO2 POC ABG pO2 VBG pH Sodium 133 L D Potassium 5.6 H D Chloride 97.1 L Carbon Dioxide 3 L* BUN 32 H Creatinine 1.6 H Glucose 664 H* POC Glucose Lactic Acid 2.30 H* Calcium 6.8 L Phosphorus Magnesium Total Creatine Kinase CK-MB (CK-2) Troponin T C-Reactive Protein Total Protein Albumin Triglycerides HDL Cholesterol TSH 15.990 H Urine WBC (Auto) 11/10/17 11/10/17 11/11/17 23:29 Unknown 00:01 WBC RBC Hct MCV MCH MCHC Plt Count Seg Neuts % (Manual) Lymphocytes % (Manual) Seg Neutrophils # Man Monocytes # (Manual) Basophils # (Manual) PT INR POC ABG pH POC ABG pCO2 POC ABG pO2 VBG pH 6.881 L* Sodium Potassium Chloride Carbon Dioxide BUN Creatinine Glucose POC Glucose 481 H Lactic Acid Calcium Phosphorus Magnesium Total Creatine Kinase CK-MB (CK-2) Troponin T C-Reactive Protein Total Protein Albumin Triglycerides HDL Cholesterol TSH Urine WBC (Auto) 8.0 H 11/11/17 11/11/17 11/11/17 00:01 00:46 00:46 WBC RBC Hct MCV MCH MCHC Plt Count Seg Neuts % (Manual) Lymphocytes % (Manual) Seg Neutrophils # Man Monocytes # (Manual) Basophils # (Manual) PT INR POC ABG pH POC ABG pCO2 POC ABG pO2 VBG pH Sodium 135 L Potassium Chloride Carbon Dioxide 3 L* 5 L* BUN 32 H 32 H Creatinine 1.5 H 1.5 H Glucose 579 H* 560 H* POC Glucose Lactic Acid 2.40 H* Calcium 6.9 L 6.8 L Phosphorus Magnesium Total Creatine Kinase CK-MB (CK-2) Troponin T C-Reactive Protein Total Protein Albumin Triglycerides HDL Cholesterol TSH Urine WBC (Auto) 11/11/17 11/11/17 11/11/17 00:58 02:19 02:21 WBC RBC Hct MCV MCH MCHC Plt Count Seg Neuts % (Manual) Lymphocytes % (Manual) Seg Neutrophils # Man Monocytes # (Manual) Basophils # (Manual) PT INR POC ABG pH POC ABG pCO2 POC ABG pO2 VBG pH Sodium Potassium Chloride Carbon Dioxide BUN Creatinine Glucose POC Glucose > 500 H < 40 L 457 H Lactic Acid Calcium Phosphorus Magnesium Total Creatine Kinase CK-MB (CK-2) Troponin T C-Reactive Protein Total Protein Albumin Triglycerides HDL Cholesterol TSH Urine WBC (Auto) 11/11/17 11/11/17 11/11/17 03:31 03:45 03:45 WBC RBC Hct MCV MCH MCHC Plt Count Seg Neuts % (Manual) Lymphocytes % (Manual) Seg Neutrophils # Man Monocytes # (Manual) Basophils # (Manual) PT INR POC ABG pH POC ABG pCO2 POC ABG pO2 VBG pH Sodium 147 H D Potassium 2.9 L* D Chloride Carbon Dioxide 11 L BUN 31 H Creatinine 1.8 H Glucose 587 H* POC Glucose 436 H Lactic Acid 9.50 H* Calcium 6.4 L Phosphorus Magnesium Total Creatine Kinase CK-MB (CK-2) Troponin T C-Reactive Protein Total Protein Albumin Triglycerides HDL Cholesterol TSH Urine WBC (Auto) 11/11/17 11/11/17 11/11/17 04:16 04:45 05:50 WBC RBC Hct MCV MCH MCHC Plt Count Seg Neuts % (Manual) Lymphocytes % (Manual) Seg Neutrophils # Man Monocytes # (Manual) Basophils # (Manual) PT INR POC ABG pH 7.036 L POC ABG pCO2 POC ABG pO2 66 L VBG pH Sodium Potassium Chloride Carbon Dioxide BUN Creatinine Glucose POC Glucose 495 H > 500 H Lactic Acid Calcium Phosphorus Magnesium Total Creatine Kinase CK-MB (CK-2) Troponin T C-Reactive Protein Total Protein Albumin Triglycerides HDL Cholesterol TSH Urine WBC (Auto) 11/11/17 11/11/17 11/11/17 06:29 06:29 06:41 WBC RBC Hct MCV MCH MCHC Plt Count Seg Neuts % (Manual) Lymphocytes % (Manual) Seg Neutrophils # Man Monocytes # (Manual) Basophils # (Manual) PT INR POC ABG pH POC ABG pCO2 POC ABG pO2 VBG pH Sodium 149 H Potassium 3.0 L Chloride 109.5 H Carbon Dioxide 17 L BUN 31 H Creatinine 1.7 H Glucose 407 H POC Glucose 387 H Lactic Acid 2.60 H* Calcium 6.2 L Phosphorus Magnesium Total Creatine Kinase CK-MB (CK-2) Troponin T C-Reactive Protein Total Protein Albumin Triglycerides HDL Cholesterol TSH Urine WBC (Auto) 11/11/17 11/11/17 11/11/17 07:05 07:07 07:07 WBC RBC Hct MCV MCH MCHC Plt Count Seg Neuts % (Manual) Lymphocytes % (Manual) Seg Neutrophils # Man Monocytes # (Manual) Basophils # (Manual) PT INR POC ABG pH POC ABG pCO2 POC ABG pO2 VBG pH Sodium 151 H Potassium 3.0 L Chloride 107.5 H Carbon Dioxide 11 L BUN 31 H Creatinine 1.8 H Glucose 541 H* POC Glucose 378 H Lactic Acid Calcium 6.5 L Phosphorus Magnesium Total Creatine Kinase 686 H CK-MB (CK-2) 19.6 H Troponin T C-Reactive Protein Total Protein Albumin Triglycerides HDL Cholesterol TSH Urine WBC (Auto) 11/11/17 11/11/17 11/11/17 08:50 08:52 09:57 WBC RBC Hct MCV MCH MCHC Plt Count Seg Neuts % (Manual) Lymphocytes % (Manual) Seg Neutrophils # Man Monocytes # (Manual) Basophils # (Manual) PT INR POC ABG pH 7.175 L POC ABG pCO2 45.1 H POC ABG pO2 33 L VBG pH Sodium Potassium Chloride Carbon Dioxide BUN Creatinine Glucose POC Glucose 256 H 232 H Lactic Acid Calcium Phosphorus Magnesium Total Creatine Kinase CK-MB (CK-2) Troponin T C-Reactive Protein Total Protein Albumin Triglycerides HDL Cholesterol TSH Urine WBC (Auto) 11/11/17 11/11/17 11/11/17 10:45 10:45 11:08 WBC RBC Hct MCV MCH 33 H MCHC Plt Count Seg Neuts % (Manual) Lymphocytes % (Manual) Seg Neutrophils # Man Monocytes # (Manual) Basophils # (Manual) PT INR POC ABG pH 7.157 L POC ABG pCO2 52.2 H POC ABG pO2 31 L VBG pH Sodium Potassium Chloride Carbon Dioxide BUN Creatinine Glucose POC Glucose Lactic Acid Calcium Phosphorus Magnesium Total Creatine Kinase 1041 H CK-MB (CK-2) 31.9 H Troponin T 0.041 H D C-Reactive Protein Total Protein Albumin Triglycerides 510 H HDL Cholesterol 26 L TSH Urine WBC (Auto) 11/11/17 11/11/17 11/11/17 11:12 12:33 12:38 WBC RBC Hct MCV MCH MCHC Plt Count Seg Neuts % (Manual) Lymphocytes % (Manual) Seg Neutrophils # Man Monocytes # (Manual) Basophils # (Manual) PT INR POC ABG pH 7.258 L POC ABG pCO2 94.5 H POC ABG pO2 50 L VBG pH Sodium Potassium Chloride Carbon Dioxide BUN Creatinine Glucose POC Glucose 246 H 265 H Lactic Acid Calcium Phosphorus Magnesium Total Creatine Kinase CK-MB (CK-2) Troponin T C-Reactive Protein Total Protein Albumin Triglycerides HDL Cholesterol TSH Urine WBC (Auto) 11/11/17 11/11/17 11/11/17 12:40 12:40 12:40 WBC RBC Hct MCV MCH MCHC Plt Count Seg Neuts % (Manual) Lymphocytes % (Manual) Seg Neutrophils # Man Monocytes # (Manual) Basophils # (Manual) PT INR POC ABG pH POC ABG pCO2 POC ABG pO2 VBG pH Sodium 171 H* D Potassium 2.9 L* Chloride 118.2 H Carbon Dioxide 39 H D BUN 28 H Creatinine 1.8 H Glucose 301 H POC Glucose Lactic Acid 11.70 H* Calcium 11.4 H D Phosphorus Magnesium Total Creatine Kinase CK-MB (CK-2) Troponin T C-Reactive Protein 7.40 H Total Protein Albumin Triglycerides HDL Cholesterol TSH Urine WBC (Auto) 11/11/17 11/11/17 11/11/17 13:58 14:53 15:42 WBC RBC Hct MCV MCH MCHC Plt Count Seg Neuts % (Manual) Lymphocytes % (Manual) Seg Neutrophils # Man Monocytes # (Manual) Basophils # (Manual) PT INR POC ABG pH POC ABG pCO2 POC ABG pO2 VBG pH Sodium Potassium Chloride Carbon Dioxide BUN Creatinine Glucose POC Glucose 244 H 273 H 311 H Lactic Acid Calcium Phosphorus Magnesium Total Creatine Kinase CK-MB (CK-2) Troponin T C-Reactive Protein Total Protein Albumin Triglycerides HDL Cholesterol TSH Urine WBC (Auto) 11/11/17 11/11/17 11/11/17 16:08 17:09 18:41 WBC RBC Hct MCV MCH MCHC Plt Count Seg Neuts % (Manual) Lymphocytes % (Manual) Seg Neutrophils # Man Monocytes # (Manual) Basophils # (Manual) PT INR POC ABG pH POC ABG pCO2 POC ABG pO2 VBG pH Sodium 153 H D Potassium 3.3 L Chloride 112.6 H Carbon Dioxide 14 L D BUN 30 H Creatinine 2.1 H Glucose 301 H POC Glucose 337 H 262 H Lactic Acid Calcium 7.8 L D Phosphorus Magnesium Total Creatine Kinase CK-MB (CK-2) Troponin T C-Reactive Protein Total Protein Albumin Triglycerides HDL Cholesterol TSH Urine WBC (Auto) 11/11/17 11/11/17 11/11/17 19:49 20:14 20:25 WBC RBC Hct MCV MCH MCHC Plt Count Seg Neuts % (Manual) Lymphocytes % (Manual) Seg Neutrophils # Man Monocytes # (Manual) Basophils # (Manual) PT INR POC ABG pH POC ABG pCO2 POC ABG pO2 VBG pH Sodium 154 H Potassium 2.7 L* Chloride 110.8 H Carbon Dioxide 20 L BUN 31 H Creatinine 2.4 H Glucose 261 H POC Glucose 281 H 265 H Lactic Acid Calcium 7.9 L Phosphorus Magnesium Total Creatine Kinase CK-MB (CK-2) Troponin T C-Reactive Protein Total Protein Albumin Triglycerides HDL Cholesterol TSH Urine WBC (Auto) 11/11/17 11/11/17 11/11/17 20:53 21:55 23:17 WBC RBC Hct MCV MCH MCHC Plt Count Seg Neuts % (Manual) Lymphocytes % (Manual) Seg Neutrophils # Man Monocytes # (Manual) Basophils # (Manual) PT INR POC ABG pH POC ABG pCO2 POC ABG pO2 VBG pH Sodium Potassium Chloride Carbon Dioxide BUN Creatinine Glucose POC Glucose 274 H 209 H 180 H Lactic Acid Calcium Phosphorus Magnesium Total Creatine Kinase CK-MB (CK-2) Troponin T C-Reactive Protein Total Protein Albumin Triglycerides HDL Cholesterol TSH Urine WBC (Auto) 11/12/17 11/12/17 11/12/17 00:09 00:26 01:12 WBC RBC Hct MCV MCH MCHC Plt Count Seg Neuts % (Manual) Lymphocytes % (Manual) Seg Neutrophils # Man Monocytes # (Manual) Basophils # (Manual) PT INR POC ABG pH POC ABG pCO2 POC ABG pO2 VBG pH Sodium 154 H Potassium Chloride 113.1 H Carbon Dioxide 17 L BUN 34 H Creatinine 2.5 H Glucose 144 H POC Glucose 176 H 148 H Lactic Acid Calcium 7.7 L Phosphorus Magnesium Total Creatine Kinase CK-MB (CK-2) Troponin T C-Reactive Protein Total Protein Albumin Triglycerides HDL Cholesterol TSH Urine WBC (Auto) 11/12/17 11/12/17 11/12/17 02:05 03:27 04:22 WBC RBC Hct MCV MCH MCHC Plt Count Seg Neuts % (Manual) Lymphocytes % (Manual) Seg Neutrophils # Man Monocytes # (Manual) Basophils # (Manual) PT INR POC ABG pH POC ABG pCO2 POC ABG pO2 VBG pH Sodium Potassium Chloride Carbon Dioxide BUN Creatinine Glucose POC Glucose 148 H 156 H 137 H Lactic Acid Calcium Phosphorus Magnesium Total Creatine Kinase CK-MB (CK-2) Troponin T C-Reactive Protein Total Protein Albumin Triglycerides HDL Cholesterol TSH Urine WBC (Auto) 11/12/17 11/12/17 11/12/17 04:42 05:06 05:34 WBC RBC Hct MCV MCH MCHC Plt Count Seg Neuts % (Manual) Lymphocytes % (Manual) Seg Neutrophils # Man Monocytes # (Manual) Basophils # (Manual) PT INR POC ABG pH POC ABG pCO2 POC ABG pO2 56 L VBG pH Sodium 154 H Potassium 3.2 L D Chloride 109.8 H Carbon Dioxide BUN 32 H Creatinine 2.6 H Glucose 157 H POC Glucose 163 H Lactic Acid Calcium 7.3 L Phosphorus Magnesium Total Creatine Kinase CK-MB (CK-2) Troponin T C-Reactive Protein Total Protein Albumin Triglycerides HDL Cholesterol TSH Urine WBC (Auto) 11/12/17 11/12/17 11/12/17 05:42 06:23 06:36 WBC RBC Hct MCV MCH MCHC Plt Count Seg Neuts % (Manual) Lymphocytes % (Manual) Seg Neutrophils # Man Monocytes # (Manual) Basophils # (Manual) PT INR POC ABG pH POC ABG pCO2 POC ABG pO2 VBG pH Sodium Potassium Chloride Carbon Dioxide BUN Creatinine Glucose POC Glucose 166 H 171 H 181 H Lactic Acid Calcium Phosphorus Magnesium Total Creatine Kinase CK-MB (CK-2) Troponin T C-Reactive Protein Total Protein Albumin Triglycerides HDL Cholesterol TSH Urine WBC (Auto) 11/12/17 11/12/17 11/12/17 07:07 08:16 09:10 WBC RBC Hct MCV MCH MCHC Plt Count Seg Neuts % (Manual) Lymphocytes % (Manual) Seg Neutrophils # Man Monocytes # (Manual) Basophils # (Manual) PT INR POC ABG pH POC ABG pCO2 POC ABG pO2 VBG pH Sodium Potassium Chloride Carbon Dioxide BUN Creatinine Glucose POC Glucose 170 H 171 H 170 H Lactic Acid Calcium Phosphorus Magnesium Total Creatine Kinase CK-MB (CK-2) Troponin T C-Reactive Protein Total Protein Albumin Triglycerides HDL Cholesterol TSH Urine WBC (Auto) 11/12/17 11/12/17 11/12/17 11:12 12:13 12:13 WBC RBC Hct MCV MCH MCHC Plt Count Seg Neuts % (Manual) Lymphocytes % (Manual) Seg Neutrophils # Man Monocytes # (Manual) Basophils # (Manual) PT INR POC ABG pH 7.316 L POC ABG pCO2 57.4 H POC ABG pO2 46 L VBG pH Sodium Potassium Chloride Carbon Dioxide BUN Creatinine Glucose POC Glucose 145 H 123 H Lactic Acid Calcium Phosphorus Magnesium Total Creatine Kinase CK-MB (CK-2) Troponin T C-Reactive Protein Total Protein Albumin Triglycerides HDL Cholesterol TSH Urine WBC (Auto) 11/12/17 11/12/17 11/12/17 14:52 18:05 18:05 WBC 29.0 H RBC 3.15 L Hct 29.4 L D MCV MCH MCHC 35 H Plt Count 115 L Seg Neuts % (Manual) 90.0 H Lymphocytes % (Manual) 6.0 L Seg Neutrophils # Man 26.1 H Monocytes # (Manual) 1.2 H Basophils # (Manual) PT INR POC ABG pH POC ABG pCO2 POC ABG pO2 VBG pH Sodium 148 H Potassium Chloride Carbon Dioxide BUN 34 H Creatinine 2.9 H Glucose 147 H POC Glucose 139 H Lactic Acid Calcium 6.6 L Phosphorus Magnesium Total Creatine Kinase CK-MB (CK-2) Troponin T C-Reactive Protein Total Protein Albumin Triglycerides HDL Cholesterol TSH Urine WBC (Auto) 11/12/17 11/12/17 11/12/17 18:19 18:23 18:45 WBC RBC Hct MCV MCH MCHC Plt Count Seg Neuts % (Manual) Lymphocytes % (Manual) Seg Neutrophils # Man Monocytes # (Manual) Basophils # (Manual) PT INR POC ABG pH 7.248 L 7.253 L POC ABG pCO2 61.4 H 58.2 H POC ABG pO2 24 L 56 L VBG pH Sodium Potassium Chloride Carbon Dioxide BUN Creatinine Glucose POC Glucose 154 H Lactic Acid Calcium Phosphorus Magnesium Total Creatine Kinase CK-MB (CK-2) Troponin T C-Reactive Protein Total Protein Albumin Triglycerides HDL Cholesterol TSH Urine WBC (Auto) 11/12/17 11/12/17 11/12/17 19:08 20:12 21:14 WBC RBC Hct MCV MCH MCHC Plt Count Seg Neuts % (Manual) Lymphocytes % (Manual) Seg Neutrophils # Man Monocytes # (Manual) Basophils # (Manual) PT INR POC ABG pH POC ABG pCO2 POC ABG pO2 VBG pH Sodium Potassium Chloride Carbon Dioxide BUN Creatinine Glucose POC Glucose 154 H 155 H 130 H Lactic Acid Calcium Phosphorus Magnesium Total Creatine Kinase CK-MB (CK-2) Troponin T C-Reactive Protein Total Protein Albumin Triglycerides HDL Cholesterol TSH Urine WBC (Auto) 11/12/17 11/12/17 11/13/17 21:30 22:08 01:17 WBC RBC Hct MCV MCH MCHC Plt Count Seg Neuts % (Manual) Lymphocytes % (Manual) Seg Neutrophils # Man Monocytes # (Manual) Basophils # (Manual) PT INR POC ABG pH 7.220 L POC ABG pCO2 57.4 H POC ABG pO2 50 L VBG pH Sodium 146 H Potassium Chloride Carbon Dioxide BUN 35 H Creatinine 3.2 H Glucose 120 H POC Glucose 108 H Lactic Acid Calcium 6.3 L Phosphorus Magnesium Total Creatine Kinase CK-MB (CK-2) Troponin T C-Reactive Protein Total Protein Albumin Triglycerides HDL Cholesterol TSH Urine WBC (Auto) 11/13/17 11/13/17 11/13/17 01:30 01:33 06:00 WBC RBC Hct MCV MCH MCHC Plt Count Seg Neuts % (Manual) Lymphocytes % (Manual) Seg Neutrophils # Man Monocytes # (Manual) Basophils # (Manual) PT INR POC ABG pH POC ABG pCO2 POC ABG pO2 VBG pH Sodium 146 H Potassium Chloride Carbon Dioxide BUN 36 H 39 H Creatinine 3.4 H 3.8 H Glucose 143 H 182 H POC Glucose 117 H Lactic Acid Calcium 6.0 L 6.6 L Phosphorus 4.90 H Magnesium 1.20 L Total Creatine Kinase CK-MB (CK-2) Troponin T C-Reactive Protein Total Protein Albumin Triglycerides HDL Cholesterol TSH Urine WBC (Auto) 11/13/17 11/13/17 11/13/17 06:00 06:24 07:42 WBC 32.3 H RBC 3.40 L Hct MCV MCH MCHC Plt Count 99 L Seg Neuts % (Manual) Lymphocytes % (Manual) Seg Neutrophils # Man Monocytes # (Manual) Basophils # (Manual) PT INR POC ABG pH 7.199 L POC ABG pCO2 58.3 H POC ABG pO2 70 L VBG pH Sodium Potassium Chloride Carbon Dioxide BUN Creatinine Glucose POC Glucose 132 H Lactic Acid Calcium Phosphorus Magnesium Total Creatine Kinase CK-MB (CK-2) Troponin T C-Reactive Protein Total Protein Albumin Triglycerides HDL Cholesterol TSH Urine WBC (Auto) 11/13/17 11/13/17 11/13/17 08:55 09:25 10:01 WBC RBC Hct MCV MCH MCHC Plt Count Seg Neuts % (Manual) Lymphocytes % (Manual) Seg Neutrophils # Man Monocytes # (Manual) Basophils # (Manual) PT INR POC ABG pH POC ABG pCO2 POC ABG pO2 VBG pH Sodium Potassium Chloride Carbon Dioxide BUN Creatinine Glucose POC Glucose 143 H 123 H 122 H Lactic Acid Calcium Phosphorus Magnesium Total Creatine Kinase CK-MB (CK-2) Troponin T C-Reactive Protein Total Protein Albumin Triglycerides HDL Cholesterol TSH Urine WBC (Auto) 11/13/17 11/13/17 10:30 11:06 WBC RBC Hct MCV MCH MCHC Plt Count Seg Neuts % (Manual) Lymphocytes % (Manual) Seg Neutrophils # Man Monocytes # (Manual) Basophils # (Manual) PT INR POC ABG pH POC ABG pCO2 POC ABG pO2 VBG pH Sodium Potassium Chloride Carbon Dioxide BUN 41 H Creatinine 4.0 H Glucose 127 H POC Glucose 129 H Lactic Acid Calcium 6.6 L Phosphorus Magnesium Total Creatine Kinase CK-MB (CK-2) Troponin T C-Reactive Protein Total Protein Albumin Triglycerides HDL Cholesterol TSH Urine WBC (Auto) Chest x-ray: image reviewed (Small left apicel PTX with subcutaneous emphysema/ pneumomediastinum) Allied health notes reviewed: RT
[2017-11-13] MEDS ORDERED: SIMPLE SYRUP FEEDTUBE PRN ×2 (11:38)
[2017-11-13] MEDS ORDERED: PANCREAZE DR 10,500 UNIT FEEDTUBE PRN (11:38)
[2017-11-13] MEDS ORDERED: SODIUM BICARBONATE FEEDTUBE PRN (11:38)
[2017-11-13] MEDS ORDERED: MAGNESIUM SULFATE IV ONE (11:53)
--- NOTE | 2017-11-13 11:55 | Progress Note ---
Assessment and Plan s/p cardiorespiratory arrest - She was intubated and ACLS protocol was initiated shortly following admission - s/p cardiac arrest X4, 1st time with [facility],then followed by [facility] X3 - likely from Severe DKA and severe septic shock - consulted cardiology, s/p amioderone drip - preserved EF on 2d echo, trend troponin Acute respiratory failure with severe hypoxia - likely b/l PNA with ARDS due to severe DKA and sepsis - scheduled steroid, nebs, on vent with positive pressure ventilation - added paralytics to improve oxygenation - CC following severe hypothyroidism - TSH >15 on presentation - started on synrhroid iv DKA - Continue insulin drip, BMP every 4 hours - cont on DKA protocol, start on TF severe Septic shock - Continue to trend lactic acid, continue vancomycin and Zosyn for now, added clindamycin - Patient currently on levophed, and epinephrine - Critical care and ID has been consulted Severe metabolic and acidosis - due to DKA, cont insulin drip and BMP every 4 hours Acute renal failure - Continue IV fluid, nephrology consulted - declining renal function and urine output Hypernatremia, con hypotonic fluid, free water with NG, improving Bilateral pneumonia - Continue antibiotic, Staph on sputum culture Hyperkalemia, status post Kayexalate Hypokalemia, will cont to replete Encephalopathy, metabolic vs anoxix - cont frequent neuro check - ordered CT head but clinically unstable to do Cont DVT prophylaxis, Updated family at bedside Full code The high probability of a clinically significant, sudden or life threatening deterioration of the [multiple] system(s) required my full and direct attention , intervention and personal management. The aggregate critical care time was [50 ] minutes. This time is in addition to time spent performing reported procedures but includes the following: [x] Data Review and interpretation [x] Patient assessment and monitoring of vital signs [x] Documentation [x] Medication orders and management Hospitalist Physical exam: GENERAL: well-developed WF lying on bed appeared unresponsive, on vent HEENT: Normocephalic. Atraumatic. No conjunctival congestion or icterus. dilated pupil with sluggish reaction to light, Patient has dry mucous membrane. NECK: Supple. Trachea midline. ET tube on place CHEST/LUNGS: Clear to auscultated bilaterally, breathing with Vent. No wheezes crackles or rhonchi. HEART/CARDIOVASCULAR: tachycardic. S1 and S2 positive. ABDOMEN: Abdomen is soft, nontender. Patient has hypoactive bowel sounds. SKIN: There is no rash. Warm and dry. cold NEURO: does not Follow command. unresponsive MUSCULOSKELETAL: No joint effusion or tenderness. EXTRIMITY: No edema, no cyanosis or clubbing. PSYCH: unable to assess Subjective Date of service: 11/13/17 Principal diagnosis: s/p cardiac arrest Interval history: Pt seen and examined updated family and discussed about prognosis Remained on vent and pressors Objective - Constitutional Vitals: Vital Signs - 12hr 11/12/17 11/13/17 11/13/17 23:59 00:00 00:15 Temperature 103.0 F H Pulse Rate 111 H 111 H Pulse Rate [ 111 H From Monitor] Respiratory 30 H 30 H Rate Blood Pressure 88/46 85/55 O2 Sat by Pulse 91 91 Oximetry 11/13/17 11/13/17 11/13/17 00:30 00:46 01:00 Temperature Pulse Rate 112 H 110 H 109 H Pulse Rate [ From Monitor] Respiratory 30 H 30 H 30 H Rate Blood Pressure 85/55 112/70 85/55 O2 Sat by Pulse 94 93 82 L Oximetry 11/13/17 11/13/17 11/13/17 01:16 01:17 01:30 Temperature Pulse Rate 110 H 115 H 120 H Pulse Rate [ From Monitor] Respiratory 32 H 31 H Rate Blood Pressure 100/52 100/52 95/50 O2 Sat by Pulse 83 L 90 Oximetry 11/13/17 11/13/17 11/13/17 01:45 02:00 02:15 Temperature Pulse Rate 118 H 116 H 116 H Pulse Rate [ From Monitor] Respiratory 30 H 28 H 28 H Rate Blood Pressure 98/53 93/58 100/57 O2 Sat by Pulse 100 Oximetry 11/13/17 11/13/17 11/13/17 02:30 02:45 03:00 Temperature Pulse Rate 116 H 116 H 115 H Pulse Rate [ From Monitor] Respiratory 28 H 28 H 28 H Rate Blood Pressure 103/59 96/51 88/54 O2 Sat by Pulse 99 98 Oximetry 11/13/17 11/13/17 11/13/17 03:15 03:30 03:45 Temperature Pulse Rate 116 H 116 H 116 H Pulse Rate [ From Monitor] Respiratory 28 H 28 H 28 H Rate Blood Pressure 98/54 97/59 98/62 O2 Sat by Pulse 100 98 99 Oximetry 11/13/17 11/13/17 11/13/17 04:00 04:15 04:30 Temperature 102.8 F H Pulse Rate 116 H 115 H 115 H Pulse Rate [ 115 H From Monitor] Respiratory 28 H 28 H 28 H Rate Blood Pressure 110/63 109/64 111/68 O2 Sat by Pulse 98 98 98 Oximetry 11/13/17 11/13/17 11/13/17 04:45 05:00 05:15 Temperature Pulse Rate 114 H 114 H 115 H Pulse Rate [ From Monitor] Respiratory 28 H 28 H 28 H Rate Blood Pressure 109/64 107/66 109/64 O2 Sat by Pulse 97 97 97 Oximetry 11/13/17 11/13/17 11/13/17 05:30 05:45 06:00 Temperature Pulse Rate 114 H 114 H 114 H Pulse Rate [ From Monitor] Respiratory 28 H 28 H 28 H Rate Blood Pressure 110/63 118/72 120/65 O2 Sat by Pulse 96 79 L 99 Oximetry 11/13/17 11/13/17 11/13/17 06:15 06:24 06:30 Temperature Pulse Rate 114 H 114 H 114 H Pulse Rate [ From Monitor] Respiratory 28 H 28 H Rate Blood Pressure 113/69 110/63 116/70 O2 Sat by Pulse 97 98 88 Oximetry 11/13/17 11/13/17 11/13/17 06:45 07:00 07:15 Temperature Pulse Rate 113 H 113 H 114 H Pulse Rate [ From Monitor] Respiratory 28 H 27 H 28 H Rate Blood Pressure 125/74 125/74 139/89 O2 Sat by Pulse 100 100 100 Oximetry 11/13/17 11/13/17 11/13/17 07:30 07:45 07:48 Temperature Pulse Rate 111 H 111 H 111 H Pulse Rate [ From Monitor] Respiratory 28 H 28 H Rate Blood Pressure 136/89 142/90 136/89 O2 Sat by Pulse 100 100 100 Oximetry 11/13/17 11/13/17 11/13/17 08:00 08:15 08:30 Temperature 102.5 F H Pulse Rate 110 H 109 H 109 H Pulse Rate [ From Monitor] Respiratory 28 H 27 H 28 H Rate Blood Pressure 144/90 143/94 149/95 O2 Sat by Pulse 100 100 100 Oximetry 07/1511/13/17 11/13/17 08:45 09:00 09:15 Temperature Pulse Rate 109 H 106 H 108 H Pulse Rate [ From Monitor] Respiratory 28 H 28 H 28 H Rate Blood Pressure 152/95 152/95 157/105 O2 Sat by Pulse 100 100 Oximetry 11/13/17 11/13/17 11/13/17 09:30 09:45 10:00 Temperature Pulse Rate 108 H 108 H 108 H Pulse Rate [ From Monitor] Respiratory 28 H 28 H 28 H Rate Blood Pressure 157/102 157/102 159/105 O2 Sat by Pulse 100 100 100 Oximetry 11/13/17 11/13/17 11/13/17 10:15 10:30 10:46 Temperature Pulse Rate 109 H 110 H 109 H Pulse Rate [ From Monitor] Respiratory 28 H 28 H 28 H Rate Blood Pressure 160/108 163/108 160/106 O2 Sat by Pulse 100 100 100 Oximetry 11/13/17 11:00 Temperature Pulse Rate 106 H Pulse Rate [ From Monitor] Respiratory 28 H Rate Blood Pressure 139/94 O2 Sat by Pulse Oximetry - Labs CBC & Chem 7: 11/13/17 06:00 11/13/17 20:22 Labs: Abnormal lab results 11/12/17 11/12/17 11/12/17 Range/Units 09:10 11:12 12:13 WBC (4.5-11.0) K/mm3 RBC (3.65-5.03) M/mm3 Hct (30.3-42.9) % MCHC (30-34) % Plt Count (140-440) K/mm3 Seg Neuts % (Manual) (40.0-70.0) % Lymphocytes % (Manual) (13.4-35.0) % Seg Neutrophils # Man (1.8-7.7) K/mm3 Monocytes # (Manual) (0.0-0.8) K/mm3 POC ABG pH (7.35-7.45) POC ABG pCO2 (35-45) POC ABG pO2 (80-105) Sodium (137-145) mmol/L BUN (7-17) mg/dL Creatinine (0.7-1.2) mg/dL Glucose (65-100) mg/dL POC Glucose 170 H 145 H 123 H (70-105) Calcium (8.4-10.2) mg/dL Phosphorus (2.5-4.5) mg/dL Magnesium (1.7-2.3) mg/dL 11/12/17 11/12/17 11/12/17 Range/Units 12:13 14:52 18:05 WBC (4.5-11.0) K/mm3 RBC (3.65-5.03) M/mm3 Hct (30.3-42.9) % MCHC (30-34) % Plt Count (140-440) K/mm3 Seg Neuts % (Manual) (40.0-70.0) % Lymphocytes % (Manual) (13.4-35.0) % Seg Neutrophils # Man (1.8-7.7) K/mm3 Monocytes # (Manual) (0.0-0.8) K/mm3 POC ABG pH 7.316 L (7.35-7.45) POC ABG pCO2 57.4 H (35-45) POC ABG pO2 46 L (80-105) Sodium 148 H (137-145) mmol/L BUN 34 H (7-17) mg/dL Creatinine 2.9 H (0.7-1.2) mg/dL Glucose 147 H (65-100) mg/dL POC Glucose 139 H (70-105) Calcium 6.6 L (8.4-10.2) mg/dL Phosphorus (2.5-4.5) mg/dL Magnesium (1.7-2.3) mg/dL 11/12/17 11/12/17 11/12/17 Range/Units 18:05 18:19 18:23 WBC 29.0 H (4.5-11.0) K/mm3 RBC 3.15 L (3.65-5.03) M/mm3 Hct 29.4 L D (30.3-42.9) % MCHC 35 H (30-34) % Plt Count 115 L (140-440) K/mm3 Seg Neuts % (Manual) 90.0 H (40.0-70.0) % Lymphocytes % (Manual) 6.0 L (13.4-35.0) % Seg Neutrophils # Man 26.1 H (1.8-7.7) K/mm3 Monocytes # (Manual) 1.2 H (0.0-0.8) K/mm3 POC ABG pH 7.248 L (7.35-7.45) POC ABG pCO2 61.4 H (35-45) POC ABG pO2 24 L (80-105) Sodium (137-145) mmol/L BUN (7-17) mg/dL Creatinine (0.7-1.2) mg/dL Glucose (65-100) mg/dL POC Glucose 154 H (70-105) Calcium (8.4-10.2) mg/dL Phosphorus (2.5-4.5) mg/dL Magnesium (1.7-2.3) mg/dL 11/12/17 11/12/17 11/12/17 Range/Units 18:45 19:08 20:12 WBC (4.5-11.0) K/mm3 RBC (3.65-5.03) M/mm3 Hct (30.3-42.9) % MCHC (30-34) % Plt Count (140-440) K/mm3 Seg Neuts % (Manual) (40.0-70.0) % Lymphocytes % (Manual) (13.4-35.0) % Seg Neutrophils # Man (1.8-7.7) K/mm3 Monocytes # (Manual) (0.0-0.8) K/mm3 POC ABG pH 7.253 L (7.35-7.45) POC ABG pCO2 58.2 H (35-45) POC ABG pO2 56 L (80-105) Sodium (137-145) mmol/L BUN (7-17) mg/dL Creatinine (0.7-1.2) mg/dL Glucose (65-100) mg/dL POC Glucose 154 H 155 H (70-105) Calcium (8.4-10.2) mg/dL Phosphorus (2.5-4.5) mg/dL Magnesium (1.7-2.3) mg/dL 11/12/17 11/12/17 11/12/17 Range/Units 21:14 21:30 22:08 WBC (4.5-11.0) K/mm3 RBC (3.65-5.03) M/mm3 Hct (30.3-42.9) % MCHC (30-34) % Plt Count (140-440) K/mm3 Seg Neuts % (Manual) (40.0-70.0) % Lymphocytes % (Manual) (13.4-35.0) % Seg Neutrophils # Man (1.8-7.7) K/mm3 Monocytes # (Manual) (0.0-0.8) K/mm3 POC ABG pH (7.35-7.45) POC ABG pCO2 (35-45) POC ABG pO2 (80-105) Sodium 146 H (137-145) mmol/L BUN 35 H (7-17) mg/dL Creatinine 3.2 H (0.7-1.2) mg/dL Glucose 120 H (65-100) mg/dL POC Glucose 130 H 108 H (70-105) Calcium 6.3 L (8.4-10.2) mg/dL Phosphorus (2.5-4.5) mg/dL Magnesium (1.7-2.3) mg/dL 11/13/17 11/13/17 11/13/17 Range/Units 01:17 01:30 01:33 WBC (4.5-11.0) K/mm3 RBC (3.65-5.03) M/mm3 Hct (30.3-42.9) % MCHC (30-34) % Plt Count (140-440) K/mm3 Seg Neuts % (Manual) (40.0-70.0) % Lymphocytes % (Manual) (13.4-35.0) % Seg Neutrophils # Man (1.8-7.7) K/mm3 Monocytes # (Manual) (0.0-0.8) K/mm3 POC ABG pH 7.220 L (7.35-7.45) POC ABG pCO2 57.4 H (35-45) POC ABG pO2 50 L (80-105) Sodium 146 H (137-145) mmol/L BUN 36 H (7-17) mg/dL Creatinine 3.4 H (0.7-1.2) mg/dL Glucose 143 H (65-100) mg/dL POC Glucose 117 H (70-105) Calcium 6.0 L (8.4-10.2) mg/dL Phosphorus (2.5-4.5) mg/dL Magnesium (1.7-2.3) mg/dL 11/13/17 11/13/17 11/13/17 Range/Units 06:00 06:00 06:24 WBC 32.3 H (4.5-11.0) K/mm3 RBC 3.40 L (3.65-5.03) M/mm3 Hct (30.3-42.9) % MCHC (30-34) % Plt Count 99 L (140-440) K/mm3 Seg Neuts % (Manual) (40.0-70.0) % Lymphocytes % (Manual) (13.4-35.0) % Seg Neutrophils # Man (1.8-7.7) K/mm3 Monocytes # (Manual) (0.0-0.8) K/mm3 POC ABG pH 7.199 L (7.35-7.45) POC ABG pCO2 58.3 H (35-45) POC ABG pO2 70 L (80-105) Sodium (137-145) mmol/L BUN 39 H (7-17) mg/dL Creatinine 3.8 H (0.7-1.2) mg/dL Glucose 182 H (65-100) mg/dL POC Glucose (70-105) Calcium 6.6 L (8.4-10.2) mg/dL Phosphorus 4.90 H (2.5-4.5) mg/dL Magnesium 1.20 L (1.7-2.3) mg/dL 11/13/17 11/13/17 11/13/17 Range/Units 07:42 08:55 09:25 WBC (4.5-11.0) K/mm3 RBC (3.65-5.03) M/mm3 Hct (30.3-42.9) % MCHC (30-34) % Plt Count (140-440) K/mm3 Seg Neuts % (Manual) (40.0-70.0) % Lymphocytes % (Manual) (13.4-35.0) % Seg Neutrophils # Man (1.8-7.7) K/mm3 Monocytes # (Manual) (0.0-0.8) K/mm3 POC ABG pH (7.35-7.45) POC ABG pCO2 (35-45) POC ABG pO2 (80-105) Sodium (137-145) mmol/L BUN (7-17) mg/dL Creatinine (0.7-1.2) mg/dL Glucose (65-100) mg/dL POC Glucose 132 H 143 H 123 H (70-105) Calcium (8.4-10.2) mg/dL Phosphorus (2.5-4.5) mg/dL Magnesium (1.7-2.3) mg/dL 11/13/17 11/13/17 11/13/17 Range/Units 10:01 10:30 11:06 WBC (4.5-11.0) K/mm3 RBC (3.65-5.03) M/mm3 Hct (30.3-42.9) % MCHC (30-34) % Plt Count (140-440) K/mm3 Seg Neuts % (Manual) (40.0-70.0) % Lymphocytes % (Manual) (13.4-35.0) % Seg Neutrophils # Man (1.8-7.7) K/mm3 Monocytes # (Manual) (0.0-0.8) K/mm3 POC ABG pH (7.35-7.45) POC ABG pCO2 (35-45) POC ABG pO2 (80-105) Sodium (137-145) mmol/L BUN 41 H (7-17) mg/dL Creatinine 4.0 H (0.7-1.2) mg/dL Glucose 127 H (65-100) mg/dL POC Glucose 122 H 129 H (70-105) Calcium 6.6 L (8.4-10.2) mg/dL Phosphorus (2.5-4.5) mg/dL Magnesium (1.7-2.3) mg/dL
[2017-11-13] MEDS ORDERED: CALCIUM CHLORIDE IV ONE (12:44)
--- NOTE | 2017-11-13 12:54 | XRay Report ---
FINAL REPORT EXAM: XR CHEST 1V AP HISTORY: Emphysema TECHNIQUE: Frontal chest radiograph. PRIORS: 11/12/2017. FINDINGS: Unchanged endotracheal tube, enteric tube and right subclavian central venous catheter. Extensive chest wall subcutaneous emphysema may be mildly improved. Pneumomediastinum is unchanged. The cardiac silhouette is nonenlarged. Patchy opacities in the periphery of the lower lungs are unchanged. No pleural effusion. New trace left apical pneumothorax encompassing less than 10 percent of the left tuyet thorax. No acute osseous abnormality. IMPRESSION: 1. Mild improved chest wall subcutaneous emphysema. 2. New trace left apical pneumothorax. 3. Unchanged pneumomediastinum. 4. Unchanged consolidations along the periphery of the lungs. Findings were discussed with Dr. Bustos at 9:46 a.m. [facility] on 11/13/2017.
[2017-11-13] MEDS ORDERED: MAGNESIUM SULFATE 1 GM in NACL 0.9% 50 ML IV ONE (13:00)
[2017-11-13] MEDS: fentaNYL DRIP Premix 2,000 MCG/100 ML BAG IV SCH (15:50)
--- NOTE | 2017-11-13 19:16 | Event Note ---
Date: 11/13/[address] Estrada about consult request for oral abscess. This is not something that General Surgery deals with. This is best handled by an oral surgeon or an ENT surgeon. She informed me that they were able to find an oral surgeon. We will not do a formal consult. Thank you.
[2017-11-13] MEDS: HumuLIN R 100 UNITS in NACL 0.9% 99 ML IV SCH ×3 (21:05→23:07)
--- NOTE | 2017-11-13 23:31 | XRay Report ---
FINAL REPORT PROCEDURE: Chest. TECHNIQUE: Portable AP view. HISTORY: Respiratory failure. COMPARISON: Chest 11/12/2017. FINDINGS: The heart and mediastinum appear normal. There is some peripheral consolidation laterally in the lower half of both lungs. This appears similar to the previous study. There is extensive subcutaneous emphysema outlining pectoral muscles. There is also subcutaneous emphysema in the left side of the lower neck. There is no definite thoracostomy tube identified. There is a linear opaque line that crosses the right costophrenic angle. This could represent a catheter, however it does not appear to be within the pleural space. Clinical correlation is suggested. There is a right subclavian venous line, a nasogastric tube and an endotracheal tube. There is no definite pneumothorax, although this is difficult to evaluate with the subcutaneous air present. The regional skeleton appears intact. IMPRESSION: Bilateral lung consolidation. Extensive subcutaneous emphysema. No significant interval change.
[2017-11-14] MEDS: HumuLIN R 100 UNITS in NACL 0.9% 99 ML IV SCH ×2 (00:06→01:10)
[2017-11-14] MEDS: LEVOPHED 8 MG in NACL 0.9% 250ML 242 ML IV SCH ×5 (00:08→21:12)
[2017-11-14] MEDS: PFIZERPEN 4 MIL.UNITS in NACL 0.9% 50 ML IV SCH ×2 (00:13→12:09)
[2017-11-14] MEDS: NACL 0.9% IV SCH ×11 (00:28→23:58)
[2017-11-14] MEDS: NIMBEX IV SCH ×11 (00:28→23:58)
[2017-11-14] MEDS: CLEOCIN 600 MG/50 mL 600 MG/50 ML BAG IV SCH ×3 (01:12→18:15)
[2017-11-14 01:30] LABS: Calcium 6.5 mg/dL (8.4-10.2)
[2017-11-14] MEDS ORDERED: HumuLIN R ONE (02:31)
[2017-11-14] MEDS ORDERED: HumuLIN R SUB-Q ONE (02:50)
--- NOTE | 2017-11-14 04:50 | XRay Report ---
FINAL REPORT PROCEDURE: XR CHEST 1V AP TECHNIQUE: Chest radiograph anteroposterior view. CPT 00088 HISTORY: follow up respiratory failure COMPARISON: No prior studies are available for comparison. FINDINGS: Heart: Normal. Mediastinum/Vessels: Normal. Lungs/Pleural space: There are bilateral lower lobe infiltrates worse on the right. There is no pleural effusion or pneumothorax.. Bony thorax: No acute osseous abnormality. Life support devices: Endotracheal tube is in the mid trachea. NG tube is in the stomach. There is a right-sided central venous catheter. Tip is in the superior vena cava.. IMPRESSION: The heart size is normal. There are bilateral lower lobe infiltrates worse on the right. There is no pleural effusion or pneumothorax.. Endotracheal tube is in the mid trachea. NG tube is in the stomach. There is a right-sided central venous catheter. Tip is in the superior vena cava..
[2017-11-14] MEDS: SYNTHROID IV SCH (05:08)
[2017-11-14 05:09] LABS: Hematocrit 32.7 % (30.3-42.9); Hemoglobin 10.7 gm/dl (10.1-14.3); Mean Corpuscular HGB Conc 33 % (30-34); Mean Corpuscular Hemoglobin 32 pg (28-32); Mean Corpuscular Volume 97 fl (79-97); Red Blood Count 3.39 M/mm3 (3.65-5.03); Red Cell Distribution Width 15.3 % (13.2-15.2)
[2017-11-14] MEDS: ZOSYN/NS 2.25 GM/50ML 2.25 GM/50 ML BAG IV SCH ×2 (05:09→13:46)
[2017-11-14 05:10] LABS: Platelet Count 87 K/mm3 (140-440)
[2017-11-14 05:24] LABS: Calcium 6.6 mg/dL (8.4-10.2)
[2017-11-14] MEDS: HumuLIN R SUB-Q SCH ×4 (06:56→23:54)
--- NOTE | 2017-11-14 07:57 | Progress Note ---
Assessment and Plan 1. Acute kidney injury: LOC in the setting of volume depletion and DKA. Renal function continue to decline due to septic shock. Patient may require hemodialysis soon. Continue IV fluids. 2. Electrolytes: Hyperkalemia, Kayexalate ordered. Severe metabolic acidosis, improving. Hypernatremia, improved. Replete Calcium. 3. Septic shock: On Levophed. 4. DKA. 5. Respiratory failure: On vent. 6. S/p Cardiac arrest. 7. Encephalopathy. Prognosis is guarded. Subjective Date of service: 11/14/17 Principal diagnosis: s/p cardiac arrest Interval history: Patient was seen and examined at the bedside. Objective - Vital Signs Vital signs: Vital Signs - 12hr 11/13/17 11/13/17 11/13/17 20:00 20:15 20:30 Temperature 99.3 F Pulse Rate 99 H 98 H 99 H Pulse Rate [ From Monitor] Pulse Rate [ Left Radial] Respiratory 28 H 28 H 28 H Rate Respiratory Rate [Abdomen] Blood Pressure 134/91 139/77 140/94 O2 Sat by Pulse 100 100 100 Oximetry 11/13/17 11/13/17 11/13/17 20:44 20:45 21:00 Temperature 99.3 F Pulse Rate 100 H 100 H Pulse Rate [ From Monitor] Pulse Rate [ Left Radial] Respiratory 28 H 28 H Rate Respiratory Rate [Abdomen] Blood Pressure 136/95 133/91 O2 Sat by Pulse 100 100 Oximetry 11/13/17 11/13/17 11/13/17 21:15 21:30 21:45 Temperature Pulse Rate 100 H 100 H 99 H Pulse Rate [ From Monitor] Pulse Rate [ Left Radial] Respiratory 28 H 28 H 28 H Rate Respiratory Rate [Abdomen] Blood Pressure 130/89 131/87 132/89 O2 Sat by Pulse 100 100 100 Oximetry 11/13/17 11/13/17 11/13/17 22:00 22:15 22:30 Temperature Pulse Rate 99 H 99 H 99 H Pulse Rate [ From Monitor] Pulse Rate [ Left Radial] Respiratory 28 H 28 H 28 H Rate Respiratory 28 H Rate [Abdomen] Blood Pressure 133/90 134/91 134/91 O2 Sat by Pulse 100 100 100 Oximetry 11/13/17 11/13/17 11/13/17 22:45 23:00 23:15 Temperature Pulse Rate 98 H 97 H 97 H Pulse Rate [ From Monitor] Pulse Rate [ Left Radial] Respiratory 28 H 28 H 28 H Rate Respiratory Rate [Abdomen] Blood Pressure 129/88 131/88 127/88 O2 Sat by Pulse 100 100 100 Oximetry 11/13/17 11/13/17 11/13/17 23:30 23:45 23:46 Temperature Pulse Rate 97 H 96 H 97 H Pulse Rate [ From Monitor] Pulse Rate [ Left Radial] Respiratory 28 H 28 H Rate Respiratory Rate [Abdomen] Blood Pressure 123/86 123/83 131/88 O2 Sat by Pulse 100 100 100 Oximetry 11/14/17 11/14/17 11/14/17 00:00 00:15 00:30 Temperature 99.7 F H Pulse Rate 96 H 94 H 94 H Pulse Rate [ From Monitor] Pulse Rate [ Left Radial] Respiratory 28 H 28 H 28 H Rate Respiratory Rate [Abdomen] Blood Pressure 124/85 120/80 118/78 O2 Sat by Pulse 100 100 100 Oximetry 11/14/17 11/14/17 11/14/17 00:34 00:46 01:00 Temperature Pulse Rate 92 H 96 H Pulse Rate [ From Monitor] Pulse Rate [ Left Radial] Respiratory 28 H 28 H 28 H Rate Respiratory Rate [Abdomen] Blood Pressure 91/51 124/85 O2 Sat by Pulse 100 100 100 Oximetry 11/14/17 11/14/17 11/14/17 01:15 01:30 01:45 Temperature Pulse Rate 94 H 93 H 93 H Pulse Rate [ From Monitor] Pulse Rate [ Left Radial] Respiratory 28 H 28 H 28 H Rate Respiratory Rate [Abdomen] Blood Pressure 114/76 108/71 107/70 O2 Sat by Pulse 100 100 100 Oximetry 11/14/17 11/14/17 11/14/17 02:00 03:00 03:22 Temperature Pulse Rate 93 H 93 H 93 H Pulse Rate [ From Monitor] Pulse Rate [ Left Radial] Respiratory 28 H 28 H Rate Respiratory Rate [Abdomen] Blood Pressure 107/70 117/78 117/81 O2 Sat by Pulse 100 100 100 Oximetry 11/14/17 11/14/17 11/14/17 04:00 05:00 06:00 Temperature 99.8 F H Pulse Rate 93 H 98 H 95 H Pulse Rate [ 95 H From Monitor] Pulse Rate [ 95 H Left Radial] Respiratory 28 H 27 H 28 H Rate Respiratory Rate [Abdomen] Blood Pressure 108/73 123/77 109/72 O2 Sat by Pulse 100 100 100 Oximetry 11/14/17 07:26 Temperature Pulse Rate 89 Pulse Rate [ From Monitor] Pulse Rate [ Left Radial] Respiratory Rate Respiratory Rate [Abdomen] Blood Pressure 101/60 O2 Sat by Pulse 98 Oximetry - General Appearance General appearance: well-developed, appears stated age, sedated on ventilator ( FiO2 70%), intubated EENT: ATNC Neck: supple Respiratory: Present: Clear to Ascultation Cardiology: tachycardia, S1S2 Gastrointestinal: normoactive bowel sounds, no tenderness Integumentary: no rash Neurologic: obtunded Musculoskeletal: other (trace pedal edema) - Lab 11/14/17 04:00 11/14/17 16:34 Most recent lab results Calcium 6.6 mg/dL (8.4-10.2) L 11/14/17 04:00 Phosphorus 4.90 mg/dL (2.5-4.5) H 11/13/17 06:00 Magnesium 1.20 mg/dL (1.7-2.3) L 11/13/17 06:00
--- NOTE | 2017-11-14 09:46 | Progress Note ---
Assessment and Plan Cont supportive measures and wean vent and vasopressors as tolerated. Overall guarded prognosis. The patient has been seen in conjunction with Dr. Anmol Zaragoza who agrees with the assessment and plan of care. - Patient Problems (1) Cardiopulmonary arrest with successful resuscitation Current Visit: Yes Status: Acute (2) Cardiac arrest with ventricular fibrillation Current Visit: Yes Status: Acute (3) Acute respiratory failure requiring reintubation Current Visit: Yes Status: Acute (4) Pneumonia Current Visit: Yes Status: Acute (5) Septic shock Current Visit: Yes Status: Acute (6) DKA (diabetic ketoacidoses) Current Visit: Yes Status: Acute (7) Metabolic acidosis Current Visit: Yes Status: Acute (8) Altered mental status Current Visit: Yes Status: Acute (9) Acute renal failure Current Visit: Yes Status: Acute (10) Hyperkalemia Current Visit: Yes Status: Resolved (11) Elevated TSH Current Visit: Yes Status: Acute Subjective Date of service: 11/14/17 Principal diagnosis: s/p cardiac arrest Interval history: pt remains intubated, nonresponsive. in SR on tele with no arrhythmias noted overnight. requiring vasopressor support. no family at bedside. Objective Last Vital Signs Temp 99.5 F 11/14/17 08:00 Pulse 96 H 11/14/17 09:00 Resp 28 H 11/14/17 09:00 BP 92/55 11/14/17 09:00 Pulse Ox 100 11/14/17 09:00 - Physical Examination General: Other HEENT: Positive: Other (dilated 5 mm) Neck: Positive: neck supple, trachea midline Cardiac: Positive: Reg Rate and Rhythm, S1/S2 Lungs: Positive: clear to auscultation Neuro: Positive: Grossly Intact, Other (intubated, nonresponsive) Abdomen: Positive: Soft Extremities: Absent: edema - Labs and Meds CBC 11/14/17 Range/Units 04:00 WBC 31.6 H (4.5-11.0) K/mm3 RBC 3.39 L (3.65-5.03) M/mm3 Hgb 10.7 (10.1-14.3) gm/dl Hct 32.7 (30.3-42.9) % Plt Count 87 L (140-440) K/mm3 Comprehensive Metabolic Panel 11/13/17 11/13/17 11/13/17 Range/Units 10:30 16:15 20:22 Sodium 145 142 140 (137-145) mmol/L Potassium 4.2 5.1 H D 4.8 (3.6-5.0) mmol/L Chloride 103.5 103.8 100.4 (98-107) mmol/L Carbon Dioxide 25 24 23 (22-30) mmol/L BUN 41 H 44 H 48 H (7-17) mg/dL Creatinine 4.0 H 4.3 H 4.5 H (0.7-1.2) mg/dL Glucose 127 H 117 H 181 H (65-100) mg/dL Calcium 6.6 L 7.0 L 7.0 L (8.4-10.2) mg/dL 11/14/17 11/14/17 Range/Units 00:37 04:00 Sodium 145 144 (137-145) mmol/L Potassium 5.2 H 5.5 H (3.6-5.0) mmol/L Chloride 105.8 104.9 (98-107) mmol/L Carbon Dioxide 24 22 (22-30) mmol/L BUN 49 H 51 H (7-17) mg/dL Creatinine 4.6 H 4.5 H (0.7-1.2) mg/dL Glucose 123 H 181 H (65-100) mg/dL Calcium 6.5 L 6.6 L (8.4-10.2) mg/dL - Imaging and Cardiology EKG: report reviewed, image reviewed Echo: report reviewed (11/11/2017 normal lv function, no signficant regurgitations) - Telemetry EKG Rhythm: Sinus Rhythm - EKG Sinus rhythms and dysrhythmias: sinus tachycardia - Allied health notes Allied health notes reviewed: RT
[2017-11-14] MEDS ORDERED: PFIZERPEN 4 MIL.UNITS in NACL 0.9% 50 ML IV SCH (10:00)
[2017-11-14] MEDS: LOVENOX SUB-Q SCH (10:20)
[2017-11-14] MEDS: PEPCID IV SCH (10:32)
[2017-11-14] MEDS: KIONEX PO SCH ×2 (11:53→13:54)
[2017-11-14 13:30] LABS: Calcium 6.4 mg/dL (8.4-10.2)
--- NOTE | 2017-11-14 13:50 | Progress Note ---
Assessment and Plan Assessment: 1) Severe Sepsis with septic shock/hypolemic shock: improving. Only on levophed. Still leukocytosis. Fever resolved for 24h. Etiology most likely due to pneumonia +/- right submandibular abscess +/- DKA/N/V. -blood cx neg -TTE neg 2) Bilateral pneumonia - likely aspiration pneumonia -tracheal asp +MSSA/Strep group B 3) DKA 4) Acute encephalopathy 5) Acute resp failure 6) Hyponatremia 7) LOC 8) S/P VT cardiac arrest 9) Right submandibular abscess ? Actinomycosis of the Jaw? 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 Nat Reeves MD Infectious Diseases Specialist [facility] ([facility] M [phone] O [phone] Subjective Date of service: 11/14/17 Principal diagnosis: s/p cardiac arrest Interval history: Remains on the vent, fever trending down no fever for 24h. She is on levophed at 18 mcg. Microbiology: Blood cultures: 11/10 ngtd 11/11 ngtd Urine cultures: 11/10 neg Respiratory cultures: 11/11 MSSA and Beta hem Strep B Wound cultures: 11/13 pending Current Antimicrobials: Zosyn Vancomycin Clinda Penicillin Objective - Exam Narrative Exam: General appearance: sedated on the vent FiO2 60% Eyes: anicteric sclerae, moist conjunctivae; no lid-lag; PERRLA HENT: Atraumatic; oropharynx +ETT +NGT Neck: Trachea midline;+right submandibular wound with minimal induration and serous drainage Lungs: CTA, with normal respiratory effort and no intercostal retractions CV:tachy Abdomen: Soft, non-tender Extremities: kathleen legs peripheral edema Skin: Normal temperature, turgor and texture; no rash, ulcers or subcutaneous nodules Psych: sedated. Neuro: sedated Lines: - Constitutional Vitals: Vital Signs Temp Pulse Resp BP Pulse Ox 99.1 F 97 H 28 H 93/57 100 11/14/17 12:00 11/14/17 10:33 11/14/17 09:00 11/14/17 10:33 11/14/17 10:33 Temperature -Last 24 Hours Temperature 99.1 F Temperature 98.8 F Temperature 99.5 F Temperature 99.8 F Temperature 99.7 F Temperature 99.3 F Temperature 99.3 F Temperature 99.4 F - Labs CBC & Chem 7: 11/14/17 04:00 11/14/17 12:45 Labs: Abnormal lab results 11/13/17 11/13/17 11/13/17 Range/Units 12:01 14:59 16:15 WBC (4.5-11.0) K/mm3 RBC (3.65-5.03) M/mm3 RDW (13.2-15.2) % Plt Count (140-440) K/mm3 POC ABG pH (7.35-7.45) POC ABG pO2 (80-105) Potassium 5.1 H D (3.6-5.0) mmol/L Carbon Dioxide (22-30) mmol/L BUN 44 H (7-17) mg/dL Creatinine 4.3 H (0.7-1.2) mg/dL Glucose 117 H (65-100) mg/dL POC Glucose 122 H 112 H (70-105) Lactic Acid (0.7-2.0) mmol/L Calcium 7.0 L (8.4-10.2) mg/dL 11/13/17 11/13/17 11/13/17 Range/Units 17:58 19:08 19:59 WBC (4.5-11.0) K/mm3 RBC (3.65-5.03) M/mm3 RDW (13.2-15.2) % Plt Count (140-440) K/mm3 POC ABG pH (7.35-7.45) POC ABG pO2 (80-105) Potassium (3.6-5.0) mmol/L Carbon Dioxide (22-30) mmol/L BUN (7-17) mg/dL Creatinine (0.7-1.2) mg/dL Glucose (65-100) mg/dL POC Glucose 128 H 110 H 180 H (70-105) Lactic Acid (0.7-2.0) mmol/L Calcium (8.4-10.2) mg/dL 11/13/17 11/13/17 11/13/17 Range/Units 20:22 21:05 22:04 WBC (4.5-11.0) K/mm3 RBC (3.65-5.03) M/mm3 RDW (13.2-15.2) % Plt Count (140-440) K/mm3 POC ABG pH (7.35-7.45) POC ABG pO2 (80-105) Potassium (3.6-5.0) mmol/L Carbon Dioxide (22-30) mmol/L BUN 48 H (7-17) mg/dL Creatinine 4.5 H (0.7-1.2) mg/dL Glucose 181 H (65-100) mg/dL POC Glucose 134 H 135 H (70-105) Lactic Acid (0.7-2.0) mmol/L Calcium 7.0 L (8.4-10.2) mg/dL 11/13/17 11/14/17 11/14/17 Range/Units 23:08 00:08 00:37 WBC (4.5-11.0) K/mm3 RBC (3.65-5.03) M/mm3 RDW (13.2-15.2) % Plt Count (140-440) K/mm3 POC ABG pH (7.35-7.45) POC ABG pO2 (80-105) Potassium 5.2 H (3.6-5.0) mmol/L Carbon Dioxide (22-30) mmol/L BUN 49 H (7-17) mg/dL Creatinine 4.6 H (0.7-1.2) mg/dL Glucose 123 H (65-100) mg/dL POC Glucose 143 H 121 H (70-105) Lactic Acid (0.7-2.0) mmol/L Calcium 6.5 L (8.4-10.2) mg/dL 11/14/17 11/14/17 11/14/17 Range/Units 01:07 01:27 02:20 WBC (4.5-11.0) K/mm3 RBC (3.65-5.03) M/mm3 RDW (13.2-15.2) % Plt Count (140-440) K/mm3 POC ABG pH 7.308 L (7.35-7.45) POC ABG pO2 161 H (80-105) Potassium (3.6-5.0) mmol/L Carbon Dioxide (22-30) mmol/L BUN (7-17) mg/dL Creatinine (0.7-1.2) mg/dL Glucose (65-100) mg/dL POC Glucose 106 H 130 H (70-105) Lactic Acid (0.7-2.0) mmol/L Calcium (8.4-10.2) mg/dL 11/14/17 11/14/17 11/14/17 Range/Units 03:09 04:00 04:00 WBC 31.6 H (4.5-11.0) K/mm3 RBC 3.39 L (3.65-5.03) M/mm3 RDW 15.3 H (13.2-15.2) % Plt Count 87 L (140-440) K/mm3 POC ABG pH (7.35-7.45) POC ABG pO2 (80-105) Potassium 5.5 H (3.6-5.0) mmol/L Carbon Dioxide (22-30) mmol/L BUN 51 H (7-17) mg/dL Creatinine 4.5 H (0.7-1.2) mg/dL Glucose 181 H (65-100) mg/dL POC Glucose 126 H (70-105) Lactic Acid (0.7-2.0) mmol/L Calcium 6.6 L (8.4-10.2) mg/dL 11/14/17 11/14/17 11/14/17 Range/Units 04:36 06:29 12:02 WBC (4.5-11.0) K/mm3 RBC (3.65-5.03) M/mm3 RDW (13.2-15.2) % Plt Count (140-440) K/mm3 POC ABG pH (7.35-7.45) POC ABG pO2 (80-105) Potassium (3.6-5.0) mmol/L Carbon Dioxide (22-30) mmol/L BUN (7-17) mg/dL Creatinine (0.7-1.2) mg/dL Glucose (65-100) mg/dL POC Glucose 135 H 166 H 222 H (70-105) Lactic Acid (0.7-2.0) mmol/L Calcium (8.4-10.2) mg/dL 11/14/17 11/14/17 Range/Units 12:45 Unknown WBC (4.5-11.0) K/mm3 RBC (3.65-5.03) M/mm3 RDW (13.2-15.2) % Plt Count (140-440) K/mm3 POC ABG pH (7.35-7.45) POC ABG pO2 (80-105) Potassium 5.5 H (3.6-5.0) mmol/L Carbon Dioxide 19 L (22-30) mmol/L BUN 58 H (7-17) mg/dL Creatinine 4.8 H (0.7-1.2) mg/dL Glucose 313 H (65-100) mg/dL POC Glucose (70-105) Lactic Acid 2.80 H* (0.7-2.0) mmol/L Calcium 6.4 L (8.4-10.2) mg/dL
[2017-11-14 13:59] LABS: INR 1.68 (0.87-1.13)
[2017-11-14] MEDS: ceFAZolin 2 GM in NACL 0.9% 100 ML IV SCH (15:29)
--- NOTE | 2017-11-14 15:38 | Progress Note ---
Assessment and Plan s/p cardiorespiratory arrest - She was intubated and ACLS protocol was initiated - s/p cardiac arrest X4, 1st time with [facility],then followed by PEA X3 - likely from Severe DKA and severe septic shock - consulted cardiology, s/p amioderone drip - preserved EF on 2d echo, Acute respiratory failure with severe hypoxia - likely b/l PNA with ARDS due to severe DKA and sepsis - scheduled steroid, nebs, on vent with positive pressure ventilation - added paralytics to improve oxygenation - CC following, plan for bronch today Severe hypothyroidism - TSH >15 on presentation - started on synrhroid iv DKA - Continue insulin drip, BMP every 4 hours - cont on DKA protocol, start on TF severe Septic shock - Continue to trend lactic acid, continue vancomycin and Zosyn for now, added clindamycin - Patient currently on levophed, d/jessica dopamin, epinephrene and dopamin - Critical care and ID has been consulted Severe metabolic and acidosis - due to DKA, cont insulin drip and BMP every 4 hours Acute renal failure - Continue IV fluid, nephrology consulted - declining renal function and very low urine output Hypernatremia, con hypotonic fluid, free water with NG, improved Bilateral pneumonia - Continue antibiotic, Staph on sputum culture Hyperkalemia, status post Kayexalate Hypokalemia, will cont to replete Encephalopathy, metabolic vs anoxix - cont frequent neuro check - ordered CT head but clinically unstable to do Cont DVT prophylaxis, Updated family at bedside Full code, prognosis gurded The high probability of a clinically significant, sudden or life threatening deterioration of the [multiple] system(s) required my full and direct attention , intervention and personal management. The aggregate critical care time was [50 ] minutes. This time is in addition to time spent performing reported procedures but includes the following: [x] Data Review and interpretation [x] Patient assessment and monitoring of vital signs [x] Documentation [x] Medication orders and management Brief History: The patient is a 37 YO female with history significant for DM, HTN, Hypothytoid , Alcohol abuse, Tobacco use and Medical noncompliance who was brought into the ER by the EMS after the patient was found by a family member at home to be extremely lethargic. She was brought to the ED for evaluation and was subsequently diagnosed with DKA, bialteral PNA, septic shock, ARF and hyperkalemia. Upon transfer from ED to CCU, she became unresponsive and developed cardiopulmonary arrest. ACLS protocol was initiated. At one point, she was noted to be in VF and was shocked twice and given several rounds of epinephrine and was initiated on amio gtt. She was intubated and remains intubated. Same day she coded thre more times with PEA. Till then she required 4 pressors which now slowly weaning off. Started on TF. Renal function declining with very low UOP. Prognosis remained gurded. Hospitalist Physical exam: GENERAL: well-developed WF lying on bed appeared unresponsive, on vent HEENT: Normocephalic. Atraumatic. No conjunctival congestion or icterus. dilated pupil with sluggish reaction to light, Patient has dry mucous membrane. NECK: Supple. Trachea midline. ET tube on place CHEST/LUNGS: Clear to auscultated bilaterally, breathing with Vent. No wheezes crackles or rhonchi. HEART/CARDIOVASCULAR: tachycardic. S1 and S2 positive. ABDOMEN: Abdomen is soft, nontender. Patient has hypoactive bowel sounds. SKIN: There is no rash. Warm and dry. cold NEURO: does not Follow command. unresponsive MUSCULOSKELETAL: No joint effusion or tenderness. EXTRIMITY: No edema, no cyanosis or clubbing. PSYCH: unable to assess Subjective Date of service: 11/14/17 Principal diagnosis: s/p cardiac arrest Interval history: Pt seen and examined updated family and discussed about prognosis Remained on vent and pressors Plan for bronch today Objective - Constitutional Vitals: Vital Signs - 12hr 11/14/17 11/14/17 11/14/17 04:00 05:00 06:00 Temperature 99.8 F H Temperature [ Pre-Procedure] Pulse Rate 93 H 98 H 95 H Pulse Rate [ 95 H From Monitor] Pulse Rate [ 95 H Left Radial] Pulse Rate [ Post-Procedure] Pulse Rate [Pre -Procedure] Respiratory 28 H 27 H 28 H Rate Respiratory Rate [Post- Procedure] Respiratory Rate [Pre- Procedure] Blood Pressure 108/73 123/77 109/72 Blood Pressure [Post-Procedure ] Blood Pressure [Pre-Procedure] O2 Sat by Pulse 100 100 100 Oximetry O2 Sat by Pulse Oximetry [Post -Procedure] O2 Sat by Pulse Oximetry [Pre- Procedure] 11/14/17 11/14/17 11/14/17 07:00 07:26 08:00 Temperature 98.8 F Temperature [ Pre-Procedure] Pulse Rate 94 H 89 96 H Pulse Rate [ From Monitor] Pulse Rate [ Left Radial] Pulse Rate [ Post-Procedure] Pulse Rate [Pre -Procedure] Respiratory 28 H 28 H Rate Respiratory Rate [Post- Procedure] Respiratory Rate [Pre- Procedure] Blood Pressure 101/63 101/60 92/55 Blood Pressure [Post-Procedure ] Blood Pressure [Pre-Procedure] O2 Sat by Pulse 100 98 100 Oximetry O2 Sat by Pulse Oximetry [Post -Procedure] O2 Sat by Pulse Oximetry [Pre- Procedure] 11/14/17 11/14/17 11/14/17 08:05 09:00 10:33 Temperature Temperature [ Pre-Procedure] Pulse Rate 96 H 97 H Pulse Rate [ From Monitor] Pulse Rate [ Left Radial] Pulse Rate [ Post-Procedure] Pulse Rate [Pre -Procedure] Respiratory 28 H 28 H Rate Respiratory Rate [Post- Procedure] Respiratory Rate [Pre- Procedure] Blood Pressure 92/55 93/57 Blood Pressure [Post-Procedure ] Blood Pressure [Pre-Procedure] O2 Sat by Pulse 100 100 100 Oximetry O2 Sat by Pulse Oximetry [Post -Procedure] O2 Sat by Pulse Oximetry [Pre- Procedure] 11/14/17 11/14/17 11/14/17 12:00 12:05 14:23 Temperature 99.1 F Temperature [ 99.1 F Pre-Procedure] Pulse Rate Pulse Rate [ From Monitor] Pulse Rate [ Left Radial] Pulse Rate [ 101 H Post-Procedure] Pulse Rate [Pre 101 H -Procedure] Respiratory 28 H Rate Respiratory 28 H Rate [Post- Procedure] Respiratory 28 H Rate [Pre- Procedure] Blood Pressure Blood Pressure 113/80 [Post-Procedure ] Blood Pressure 109/71 [Pre-Procedure] O2 Sat by Pulse 100 Oximetry O2 Sat by Pulse 100 Oximetry [Post -Procedure] O2 Sat by Pulse 100 Oximetry [Pre- Procedure] - Labs CBC & Chem 7: 11/14/17 04:00 11/14/17 16:34 Labs: Abnormal lab results 11/13/17 11/13/17 11/13/17 Range/Units 12:01 14:59 16:15 WBC (4.5-11.0) K/mm3 RBC (3.65-5.03) M/mm3 RDW (13.2-15.2) % Plt Count (140-440) K/mm3 PT (12.2-14.9) Sec. INR (0.87-1.13) POC ABG pH (7.35-7.45) POC ABG pO2 (80-105) Potassium 5.1 H D (3.6-5.0) mmol/L Carbon Dioxide (22-30) mmol/L BUN 44 H (7-17) mg/dL Creatinine 4.3 H (0.7-1.2) mg/dL Glucose 117 H (65-100) mg/dL POC Glucose 122 H 112 H (70-105) Lactic Acid (0.7-2.0) mmol/L Calcium 7.0 L (8.4-10.2) mg/dL 11/13/17 11/13/17 11/13/17 Range/Units 17:58 19:08 19:59 WBC (4.5-11.0) K/mm3 RBC (3.65-5.03) M/mm3 RDW (13.2-15.2) % Plt Count (140-440) K/mm3 PT (12.2-14.9) Sec. INR (0.87-1.13) POC ABG pH (7.35-7.45) POC ABG pO2 (80-105) Potassium (3.6-5.0) mmol/L Carbon Dioxide (22-30) mmol/L BUN (7-17) mg/dL Creatinine (0.7-1.2) mg/dL Glucose (65-100) mg/dL POC Glucose 128 H 110 H 180 H (70-105) Lactic Acid (0.7-2.0) mmol/L Calcium (8.4-10.2) mg/dL 11/13/17 11/13/17 11/13/17 Range/Units 20:22 21:05 22:04 WBC (4.5-11.0) K/mm3 RBC (3.65-5.03) M/mm3 RDW (13.2-15.2) % Plt Count (140-440) K/mm3 PT (12.2-14.9) Sec. INR (0.87-1.13) POC ABG pH (7.35-7.45) POC ABG pO2 (80-105) Potassium (3.6-5.0) mmol/L Carbon Dioxide (22-30) mmol/L BUN 48 H (7-17) mg/dL Creatinine 4.5 H (0.7-1.2) mg/dL Glucose 181 H (65-100) mg/dL POC Glucose 134 H 135 H (70-105) Lactic Acid (0.7-2.0) mmol/L Calcium 7.0 L (8.4-10.2) mg/dL 11/13/17 11/14/17 11/14/17 Range/Units 23:08 00:08 00:37 WBC (4.5-11.0) K/mm3 RBC (3.65-5.03) M/mm3 RDW (13.2-15.2) % Plt Count (140-440) K/mm3 PT (12.2-14.9) Sec. INR (0.87-1.13) POC ABG pH (7.35-7.45) POC ABG pO2 (80-105) Potassium 5.2 H (3.6-5.0) mmol/L Carbon Dioxide (22-30) mmol/L BUN 49 H (7-17) mg/dL Creatinine 4.6 H (0.7-1.2) mg/dL Glucose 123 H (65-100) mg/dL POC Glucose 143 H 121 H (70-105) Lactic Acid (0.7-2.0) mmol/L Calcium 6.5 L (8.4-10.2) mg/dL 11/14/17 11/14/17 11/14/17 Range/Units 01:07 01:27 02:20 WBC (4.5-11.0) K/mm3 RBC (3.65-5.03) M/mm3 RDW (13.2-15.2) % Plt Count (140-440) K/mm3 PT (12.2-14.9) Sec. INR (0.87-1.13) POC ABG pH 7.308 L (7.35-7.45) POC ABG pO2 161 H (80-105) Potassium (3.6-5.0) mmol/L Carbon Dioxide (22-30) mmol/L BUN (7-17) mg/dL Creatinine (0.7-1.2) mg/dL Glucose (65-100) mg/dL POC Glucose 106 H 130 H (70-105) Lactic Acid (0.7-2.0) mmol/L Calcium (8.4-10.2) mg/dL 11/14/17 11/14/17 11/14/17 Range/Units 03:09 04:00 04:00 WBC 31.6 H (4.5-11.0) K/mm3 RBC 3.39 L (3.65-5.03) M/mm3 RDW 15.3 H (13.2-15.2) % Plt Count 87 L (140-440) K/mm3 PT (12.2-14.9) Sec. INR (0.87-1.13) POC ABG pH (7.35-7.45) POC ABG pO2 (80-105) Potassium 5.5 H (3.6-5.0) mmol/L Carbon Dioxide (22-30) mmol/L BUN 51 H (7-17) mg/dL Creatinine 4.5 H (0.7-1.2) mg/dL Glucose 181 H (65-100) mg/dL POC Glucose 126 H (70-105) Lactic Acid (0.7-2.0) mmol/L Calcium 6.6 L (8.4-10.2) mg/dL 11/14/17 11/14/17 11/14/17 Range/Units 04:36 06:29 12:02 WBC (4.5-11.0) K/mm3 RBC (3.65-5.03) M/mm3 RDW (13.2-15.2) % Plt Count (140-440) K/mm3 PT (12.2-14.9) Sec. INR (0.87-1.13) POC ABG pH (7.35-7.45) POC ABG pO2 (80-105) Potassium (3.6-5.0) mmol/L Carbon Dioxide (22-30) mmol/L BUN (7-17) mg/dL Creatinine (0.7-1.2) mg/dL Glucose (65-100) mg/dL POC Glucose 135 H 166 H 222 H (70-105) Lactic Acid (0.7-2.0) mmol/L Calcium (8.4-10.2) mg/dL 11/14/17 11/14/17 11/14/17 Range/Units 12:45 12:45 Unknown WBC (4.5-11.0) K/mm3 RBC (3.65-5.03) M/mm3 RDW (13.2-15.2) % Plt Count (140-440) K/mm3 PT 20.8 H (12.2-14.9) Sec. INR 1.68 H (0.87-1.13) POC ABG pH (7.35-7.45) POC ABG pO2 (80-105) Potassium 5.5 H (3.6-5.0) mmol/L Carbon Dioxide 19 L (22-30) mmol/L BUN 58 H (7-17) mg/dL Creatinine 4.8 H (0.7-1.2) mg/dL Glucose 313 H (65-100) mg/dL POC Glucose (70-105) Lactic Acid 2.80 H* (0.7-2.0) mmol/L Calcium 6.4 L (8.4-10.2) mg/dL
--- NOTE | 2017-11-14 16:31 | Progress Note ---
Assessment and Plan Acute hypoxemic respiratory failure.. s/p cardiorespiratory arrest Subcutaneous emphysema DKA Severe Sepsis with septic shock Severe metabolic acidosis Acute renal failure ARDS Hypernatremia Encephalopathy, metabolic - VAP bundle addressed - Oxygenation much improved. Remains very tenuous. With small left apical PTX, decrease PEEP and follow clinically and radiographically. If any acute hemodynamic instability or increase on the size of the PTX on follow up imaging will plan on Hiemliech valve placement - Antibiotics per ID - Cardiology following - No urgent need for HD at this time - Vasopressor support to keep MAP>65 - Paralytics with TOF monitoring for another 24 hours, and review - Correct electrolyte abnormalities, give calcium - Continue steroids for vasopressor unresponsive shock - ABG and CXR qam and prn - Discontinue bicarbonate infusion, use crystalloids for intravascular volume expansion. - Once she is off vasopressor support, plan to use volume restrictive strategies - Nutritional support, trophic feeding - Insulin infusion for glycemic control Full code Prognosis is grave Discussed extensively with the hospitalist service Discussed with ID attending Discussed with her mother extensively The high probability of a clinically significant, sudden or life threatening deterioration of the [multiple] system(s) required my full and direct attention , intervention and personal management. The aggregate critical care time was [65 ] minutes. This time is in addition to time spent performing reported procedures but includes the following: [x] Data Review and interpretation [x] Patient assessment and monitoring of vital signs [x] Documentation [x] Medication orders and management Subjective Date of service: 11/14/17 Principal diagnosis: Acute Hypoxemic Resp Failure; ARDS; s/p cardiac arrest; Acut Encephalopathy Interval history: Patient is seen today for: Acute Hypoxemic Resp Failure; ARDS; s/p cardiac arrest; Acute Encephalopathy Seen and examined at bedside; 24hour events reviewed; nursing and respiratory care staff consulted; no adverse overnight events reported to me; Objective Vital Signs - 12hr 11/14/17 11/14/17 11/14/17 05:00 06:00 07:00 Temperature Temperature [ Pre-Procedure] Pulse Rate 98 H 95 H 94 H Pulse Rate [ Post-Procedure] Pulse Rate [Pre -Procedure] Respiratory 27 H 28 H 28 H Rate Respiratory Rate [Post- Procedure] Respiratory Rate [Pre- Procedure] Blood Pressure 123/77 109/72 101/63 Blood Pressure [Post-Procedure ] Blood Pressure [Pre-Procedure] O2 Sat by Pulse 100 100 100 Oximetry O2 Sat by Pulse Oximetry [Post -Procedure] O2 Sat by Pulse Oximetry [Pre- Procedure] 11/14/17 11/14/17 11/14/17 07:26 08:00 08:05 Temperature 98.8 F Temperature [ Pre-Procedure] Pulse Rate 89 96 H Pulse Rate [ Post-Procedure] Pulse Rate [Pre -Procedure] Respiratory 28 H 28 H Rate Respiratory Rate [Post- Procedure] Respiratory Rate [Pre- Procedure] Blood Pressure 101/60 92/55 Blood Pressure [Post-Procedure ] Blood Pressure [Pre-Procedure] O2 Sat by Pulse 98 100 100 Oximetry O2 Sat by Pulse Oximetry [Post -Procedure] O2 Sat by Pulse Oximetry [Pre- Procedure] 11/14/17 11/14/17 11/14/17 09:00 10:33 12:00 Temperature 99.1 F Temperature [ Pre-Procedure] Pulse Rate 96 H 97 H Pulse Rate [ Post-Procedure] Pulse Rate [Pre -Procedure] Respiratory 28 H Rate Respiratory Rate [Post- Procedure] Respiratory Rate [Pre- Procedure] Blood Pressure 92/55 93/57 Blood Pressure [Post-Procedure ] Blood Pressure [Pre-Procedure] O2 Sat by Pulse 100 100 Oximetry O2 Sat by Pulse Oximetry [Post -Procedure] O2 Sat by Pulse Oximetry [Pre- Procedure] 11/14/17 11/14/17 11/14/17 12:05 14:23 15:52 Temperature Temperature [ 99.1 F Pre-Procedure] Pulse Rate Pulse Rate [ 101 H Post-Procedure] Pulse Rate [Pre 101 H -Procedure] Respiratory 28 H Rate Respiratory 28 H Rate [Post- Procedure] Respiratory 28 H Rate [Pre- Procedure] Blood Pressure Blood Pressure 113/80 [Post-Procedure ] Blood Pressure 109/71 [Pre-Procedure] O2 Sat by Pulse 100 100 Oximetry O2 Sat by Pulse 100 Oximetry [Post -Procedure] O2 Sat by Pulse 100 Oximetry [Pre- Procedure] 11/14/17 15:53 Temperature Temperature [ Pre-Procedure] Pulse Rate 103 H Pulse Rate [ Post-Procedure] Pulse Rate [Pre -Procedure] Respiratory Rate Respiratory Rate [Post- Procedure] Respiratory Rate [Pre- Procedure] Blood Pressure 111/65 Blood Pressure [Post-Procedure ] Blood Pressure [Pre-Procedure] O2 Sat by Pulse 100 Oximetry O2 Sat by Pulse Oximetry [Post -Procedure] O2 Sat by Pulse Oximetry [Pre- Procedure] CBC and BMP: 11/14/17 04:00 11/14/17 12:45 ABG, PT/INR, D-dimer: ABG POC ABG pH 7.308 (7.35-7.45) L 11/14/17 01:27 POC ABG pCO2 44.6 (35-45) 11/14/17 01:27 POC ABG pO2 161 (80-105) H 11/14/17 01:27 POC ABG HCO3 22.3 11/14/17 01:27 POC ABG Total CO2 24 11/14/17 01:27 POC ABG O2 Sat 99 11/14/17 01:27 PT/INR, D-dimer PT 20.8 Sec. (12.2-14.9) H 11/14/17 12:45 INR 1.68 (0.87-1.13) H 11/14/17 12:45 Abnormal lab findings: Abnormal Labs 11/10/17 11/10/17 11/10/17 19:54 20:18 20:18 WBC 39.8 H RBC 3.59 L Hct MCV 117 H MCH MCHC 27 L RDW Plt Count 469 H Seg Neuts % (Manual) 93.5 H Lymphocytes % (Manual) 3.0 L Seg Neutrophils # Man 37.2 H Monocytes # (Manual) 1.0 H Basophils # (Manual) 0.2 H PT 18.8 H INR 1.48 H POC ABG pH POC ABG pCO2 POC ABG pO2 VBG pH Sodium Potassium Chloride Carbon Dioxide BUN Creatinine Glucose POC Glucose 488 H Lactic Acid Calcium Phosphorus Magnesium Total Creatine Kinase CK-MB (CK-2) Troponin T C-Reactive Protein Total Protein Albumin Triglycerides HDL Cholesterol TSH Urine WBC (Auto) 11/10/17 11/10/17 11/10/17 20:18 20:18 20:18 WBC RBC Hct MCV MCH MCHC RDW Plt Count Seg Neuts % (Manual) Lymphocytes % (Manual) Seg Neutrophils # Man Monocytes # (Manual) Basophils # (Manual) PT INR POC ABG pH POC ABG pCO2 POC ABG pO2 VBG pH 6.763 L* Sodium 125 L Potassium 7.5 H* Chloride 82.9 L Carbon Dioxide 2 L* BUN 33 H Creatinine 1.8 H Glucose 976 H* POC Glucose Lactic Acid 3.00 H* Calcium 7.6 L Phosphorus Magnesium Total Creatine Kinase CK-MB (CK-2) Troponin T C-Reactive Protein Total Protein 6.2 L Albumin 3.5 L Triglycerides HDL Cholesterol TSH Urine WBC (Auto) 11/10/17 11/10/17 11/10/17 20:35 20:35 22:07 WBC RBC Hct MCV MCH MCHC RDW Plt Count Seg Neuts % (Manual) Lymphocytes % (Manual) Seg Neutrophils # Man Monocytes # (Manual) Basophils # (Manual) PT INR POC ABG pH POC ABG pCO2 POC ABG pO2 VBG pH Sodium 124 L Potassium 7.6 H* Chloride 82.0 L Carbon Dioxide 3 L* BUN 33 H Creatinine 1.8 H Glucose 977 H* POC Glucose 481 H Lactic Acid Calcium 7.8 L Phosphorus 9.40 H Magnesium 2.70 H Total Creatine Kinase CK-MB (CK-2) Troponin T C-Reactive Protein Total Protein Albumin Triglycerides HDL Cholesterol TSH Urine WBC (Auto) 11/10/17 11/10/17 11/10/17 23:06 23:06 23:15 WBC RBC Hct MCV MCH MCHC RDW Plt Count Seg Neuts % (Manual) Lymphocytes % (Manual) Seg Neutrophils # Man Monocytes # (Manual) Basophils # (Manual) PT INR POC ABG pH POC ABG pCO2 POC ABG pO2 VBG pH Sodium 133 L D Potassium 5.6 H D Chloride 97.1 L Carbon Dioxide 3 L* BUN 32 H Creatinine 1.6 H Glucose 664 H* POC Glucose Lactic Acid 2.30 H* Calcium 6.8 L Phosphorus Magnesium Total Creatine Kinase CK-MB (CK-2) Troponin T C-Reactive Protein Total Protein Albumin Triglycerides HDL Cholesterol TSH 15.990 H Urine WBC (Auto) 11/10/17 11/10/17 11/11/17 23:29 Unknown 00:01 WBC RBC Hct MCV MCH MCHC RDW Plt Count Seg Neuts % (Manual) Lymphocytes % (Manual) Seg Neutrophils # Man Monocytes # (Manual) Basophils # (Manual) PT INR POC ABG pH POC ABG pCO2 POC ABG pO2 VBG pH 6.881 L* Sodium Potassium Chloride Carbon Dioxide BUN Creatinine Glucose POC Glucose 481 H Lactic Acid Calcium Phosphorus Magnesium Total Creatine Kinase CK-MB (CK-2) Troponin T C-Reactive Protein Total Protein Albumin Triglycerides HDL Cholesterol TSH Urine WBC (Auto) 8.0 H 07/11/11/17 11/11/17 00:01 00:46 00:46 WBC RBC Hct MCV MCH MCHC RDW Plt Count Seg Neuts % (Manual) Lymphocytes % (Manual) Seg Neutrophils # Man Monocytes # (Manual) Basophils # (Manual) PT INR POC ABG pH POC ABG pCO2 POC ABG pO2 VBG pH Sodium 135 L Potassium Chloride Carbon Dioxide 3 L* 5 L* BUN 32 H 32 H Creatinine 1.5 H 1.5 H Glucose 579 H* 560 H* POC Glucose Lactic Acid 2.40 H* Calcium 6.9 L 6.8 L Phosphorus Magnesium Total Creatine Kinase CK-MB (CK-2) Troponin T C-Reactive Protein Total Protein Albumin Triglycerides HDL Cholesterol TSH Urine WBC (Auto) 11/11/17 11/11/17 11/11/17 00:58 02:19 02:21 WBC RBC Hct MCV MCH MCHC RDW Plt Count Seg Neuts % (Manual) Lymphocytes % (Manual) Seg Neutrophils # Man Monocytes # (Manual) Basophils # (Manual) PT INR POC ABG pH POC ABG pCO2 POC ABG pO2 VBG pH Sodium Potassium Chloride Carbon Dioxide BUN Creatinine Glucose POC Glucose > 500 H < 40 L 457 H Lactic Acid Calcium Phosphorus Magnesium Total Creatine Kinase CK-MB (CK-2) Troponin T C-Reactive Protein Total Protein Albumin Triglycerides HDL Cholesterol TSH Urine WBC (Auto) 11/11/17 11/11/17 11/11/17 03:31 03:45 03:45 WBC RBC Hct MCV MCH MCHC RDW Plt Count Seg Neuts % (Manual) Lymphocytes % (Manual) Seg Neutrophils # Man Monocytes # (Manual) Basophils # (Manual) PT INR POC ABG pH POC ABG pCO2 POC ABG pO2 VBG pH Sodium 147 H D Potassium 2.9 L* D Chloride Carbon Dioxide 11 L BUN 31 H Creatinine 1.8 H Glucose 587 H* POC Glucose 436 H Lactic Acid 9.50 H* Calcium 6.4 L Phosphorus Magnesium Total Creatine Kinase CK-MB (CK-2) Troponin T C-Reactive Protein Total Protein Albumin Triglycerides HDL Cholesterol TSH Urine WBC (Auto) 11/11/17 11/11/17 11/11/17 04:16 04:45 05:50 WBC RBC Hct MCV MCH MCHC RDW Plt Count Seg Neuts % (Manual) Lymphocytes % (Manual) Seg Neutrophils # Man Monocytes # (Manual) Basophils # (Manual) PT INR POC ABG pH 7.036 L POC ABG pCO2 POC ABG pO2 66 L VBG pH Sodium Potassium Chloride Carbon Dioxide BUN Creatinine Glucose POC Glucose 495 H > 500 H Lactic Acid Calcium Phosphorus Magnesium Total Creatine Kinase CK-MB (CK-2) Troponin T C-Reactive Protein Total Protein Albumin Triglycerides HDL Cholesterol TSH Urine WBC (Auto) 11/11/17 11/11/17 11/11/17 06:29 06:29 06:41 WBC RBC Hct MCV MCH MCHC RDW Plt Count Seg Neuts % (Manual) Lymphocytes % (Manual) Seg Neutrophils # Man Monocytes # (Manual) Basophils # (Manual) PT INR POC ABG pH POC ABG pCO2 POC ABG pO2 VBG pH Sodium 149 H Potassium 3.0 L Chloride 109.5 H Carbon Dioxide 17 L BUN 31 H Creatinine 1.7 H Glucose 407 H POC Glucose 387 H Lactic Acid 2.60 H* Calcium 6.2 L Phosphorus Magnesium Total Creatine Kinase CK-MB (CK-2) Troponin T C-Reactive Protein Total Protein Albumin Triglycerides HDL Cholesterol TSH Urine WBC (Auto) 11/11/17 11/11/17 11/11/17 07:05 07:07 07:07 WBC RBC Hct MCV MCH MCHC RDW Plt Count Seg Neuts % (Manual) Lymphocytes % (Manual) Seg Neutrophils # Man Monocytes # (Manual) Basophils # (Manual) PT INR POC ABG pH POC ABG pCO2 POC ABG pO2 VBG pH Sodium 151 H Potassium 3.0 L Chloride 107.5 H Carbon Dioxide 11 L BUN 31 H Creatinine 1.8 H Glucose 541 H* POC Glucose 378 H Lactic Acid Calcium 6.5 L Phosphorus Magnesium Total Creatine Kinase 686 H CK-MB (CK-2) 19.6 H Troponin T C-Reactive Protein Total Protein Albumin Triglycerides HDL Cholesterol TSH Urine WBC (Auto) 11/11/17 11/11/17 11/11/17 08:50 08:52 09:57 WBC RBC Hct MCV MCH MCHC RDW Plt Count Seg Neuts % (Manual) Lymphocytes % (Manual) Seg Neutrophils # Man Monocytes # (Manual) Basophils # (Manual) PT INR POC ABG pH 7.175 L POC ABG pCO2 45.1 H POC ABG pO2 33 L VBG pH Sodium Potassium Chloride Carbon Dioxide BUN Creatinine Glucose POC Glucose 256 H 232 H Lactic Acid Calcium Phosphorus Magnesium Total Creatine Kinase CK-MB (CK-2) Troponin T C-Reactive Protein Total Protein Albumin Triglycerides HDL Cholesterol TSH Urine WBC (Auto) 11/11/17 11/11/17 11/11/17 10:45 10:45 11:08 WBC RBC Hct MCV MCH 33 H MCHC RDW Plt Count Seg Neuts % (Manual) Lymphocytes % (Manual) Seg Neutrophils # Man Monocytes # (Manual) Basophils # (Manual) PT INR POC ABG pH 7.157 L POC ABG pCO2 52.2 H POC ABG pO2 31 L VBG pH Sodium Potassium Chloride Carbon Dioxide BUN Creatinine Glucose POC Glucose Lactic Acid Calcium Phosphorus Magnesium Total Creatine Kinase 1041 H CK-MB (CK-2) 31.9 H Troponin T 0.041 H D C-Reactive Protein Total Protein Albumin Triglycerides 510 H HDL Cholesterol 26 L TSH Urine WBC (Auto) 11/11/17 11/11/17 11/11/17 11:12 12:33 12:38 WBC RBC Hct MCV MCH MCHC RDW Plt Count Seg Neuts % (Manual) Lymphocytes % (Manual) Seg Neutrophils # Man Monocytes # (Manual) Basophils # (Manual) PT INR POC ABG pH 7.258 L POC ABG pCO2 94.5 H POC ABG pO2 50 L VBG pH Sodium Potassium Chloride Carbon Dioxide BUN Creatinine Glucose POC Glucose 246 H 265 H Lactic Acid Calcium Phosphorus Magnesium Total Creatine Kinase CK-MB (CK-2) Troponin T C-Reactive Protein Total Protein Albumin Triglycerides HDL Cholesterol TSH Urine WBC (Auto) 11/11/17 11/11/17 11/11/17 12:40 12:40 12:40 WBC RBC Hct MCV MCH MCHC RDW Plt Count Seg Neuts % (Manual) Lymphocytes % (Manual) Seg Neutrophils # Man Monocytes # (Manual) Basophils # (Manual) PT INR POC ABG pH POC ABG pCO2 POC ABG pO2 VBG pH Sodium 171 H* D Potassium 2.9 L* Chloride 118.2 H Carbon Dioxide 39 H D BUN 28 H Creatinine 1.8 H Glucose 301 H POC Glucose Lactic Acid 11.70 H* Calcium 11.4 H D Phosphorus Magnesium Total Creatine Kinase CK-MB (CK-2) Troponin T C-Reactive Protein 7.40 H Total Protein Albumin Triglycerides HDL Cholesterol TSH Urine WBC (Auto) 11/11/17 11/11/17 11/11/17 13:58 14:53 15:42 WBC RBC Hct MCV MCH MCHC RDW Plt Count Seg Neuts % (Manual) Lymphocytes % (Manual) Seg Neutrophils # Man Monocytes # (Manual) Basophils # (Manual) PT INR POC ABG pH POC ABG pCO2 POC ABG pO2 VBG pH Sodium Potassium Chloride Carbon Dioxide BUN Creatinine Glucose POC Glucose 244 H 273 H 311 H Lactic Acid Calcium Phosphorus Magnesium Total Creatine Kinase CK-MB (CK-2) Troponin T C-Reactive Protein Total Protein Albumin Triglycerides HDL Cholesterol TSH Urine WBC (Auto) 11/11/17 11/11/17 11/11/17 16:08 17:09 18:41 WBC RBC Hct MCV MCH MCHC RDW Plt Count Seg Neuts % (Manual) Lymphocytes % (Manual) Seg Neutrophils # Man Monocytes # (Manual) Basophils # (Manual) PT INR POC ABG pH POC ABG pCO2 POC ABG pO2 VBG pH Sodium 153 H D Potassium 3.3 L Chloride 112.6 H Carbon Dioxide 14 L D BUN 30 H Creatinine 2.1 H Glucose 301 H POC Glucose 337 H 262 H Lactic Acid Calcium 7.8 L D Phosphorus Magnesium Total Creatine Kinase CK-MB (CK-2) Troponin T C-Reactive Protein Total Protein Albumin Triglycerides HDL Cholesterol TSH Urine WBC (Auto) 11/11/17 11/11/17 11/11/17 19:49 20:14 20:25 WBC RBC Hct MCV MCH MCHC RDW Plt Count Seg Neuts % (Manual) Lymphocytes % (Manual) Seg Neutrophils # Man Monocytes # (Manual) Basophils # (Manual) PT INR POC ABG pH POC ABG pCO2 POC ABG pO2 VBG pH Sodium 154 H Potassium 2.7 L* Chloride 110.8 H Carbon Dioxide 20 L BUN 31 H Creatinine 2.4 H Glucose 261 H POC Glucose 281 H 265 H Lactic Acid Calcium 7.9 L Phosphorus Magnesium Total Creatine Kinase CK-MB (CK-2) Troponin T C-Reactive Protein Total Protein Albumin Triglycerides HDL Cholesterol TSH Urine WBC (Auto) 11/11/17 11/11/17 11/11/17 20:53 21:55 23:17 WBC RBC Hct MCV MCH MCHC RDW Plt Count Seg Neuts % (Manual) Lymphocytes % (Manual) Seg Neutrophils # Man Monocytes # (Manual) Basophils # (Manual) PT INR POC ABG pH POC ABG pCO2 POC ABG pO2 VBG pH Sodium Potassium Chloride Carbon Dioxide BUN Creatinine Glucose POC Glucose 274 H 209 H 180 H Lactic Acid Calcium Phosphorus Magnesium Total Creatine Kinase CK-MB (CK-2) Troponin T C-Reactive Protein Total Protein Albumin Triglycerides HDL Cholesterol TSH Urine WBC (Auto) 11/12/17 11/12/17 11/12/17 00:09 00:26 01:12 WBC RBC Hct MCV MCH MCHC RDW Plt Count Seg Neuts % (Manual) Lymphocytes % (Manual) Seg Neutrophils # Man Monocytes # (Manual) Basophils # (Manual) PT INR POC ABG pH POC ABG pCO2 POC ABG pO2 VBG pH Sodium 154 H Potassium Chloride 113.1 H Carbon Dioxide 17 L BUN 34 H Creatinine 2.5 H Glucose 144 H POC Glucose 176 H 148 H Lactic Acid Calcium 7.7 L Phosphorus Magnesium Total Creatine Kinase CK-MB (CK-2) Troponin T C-Reactive Protein Total Protein Albumin Triglycerides HDL Cholesterol TSH Urine WBC (Auto) 11/12/17 11/12/17 11/12/17 02:05 03:27 04:22 WBC RBC Hct MCV MCH MCHC RDW Plt Count Seg Neuts % (Manual) Lymphocytes % (Manual) Seg Neutrophils # Man Monocytes # (Manual) Basophils # (Manual) PT INR POC ABG pH POC ABG pCO2 POC ABG pO2 VBG pH Sodium Potassium Chloride Carbon Dioxide BUN Creatinine Glucose POC Glucose 148 H 156 H 137 H Lactic Acid Calcium Phosphorus Magnesium Total Creatine Kinase CK-MB (CK-2) Troponin T C-Reactive Protein Total Protein Albumin Triglycerides HDL Cholesterol TSH Urine WBC (Auto) 11/12/17 11/12/17 11/12/17 04:42 05:06 05:34 WBC RBC Hct MCV MCH MCHC RDW Plt Count Seg Neuts % (Manual) Lymphocytes % (Manual) Seg Neutrophils # Man Monocytes # (Manual) Basophils # (Manual) PT INR POC ABG pH POC ABG pCO2 POC ABG pO2 56 L VBG pH Sodium 154 H Potassium 3.2 L D Chloride 109.8 H Carbon Dioxide BUN 32 H Creatinine 2.6 H Glucose 157 H POC Glucose 163 H Lactic Acid Calcium 7.3 L Phosphorus Magnesium Total Creatine Kinase CK-MB (CK-2) Troponin T C-Reactive Protein Total Protein Albumin Triglycerides HDL Cholesterol TSH Urine WBC (Auto) 11/12/17 11/12/17 11/12/17 05:42 06:23 06:36 WBC RBC Hct MCV MCH MCHC RDW Plt Count Seg Neuts % (Manual) Lymphocytes % (Manual) Seg Neutrophils # Man Monocytes # (Manual) Basophils # (Manual) PT INR POC ABG pH POC ABG pCO2 POC ABG pO2 VBG pH Sodium Potassium Chloride Carbon Dioxide BUN Creatinine Glucose POC Glucose 166 H 171 H 181 H Lactic Acid Calcium Phosphorus Magnesium Total Creatine Kinase CK-MB (CK-2) Troponin T C-Reactive Protein Total Protein Albumin Triglycerides HDL Cholesterol TSH Urine WBC (Auto) 11/12/17 11/12/17 11/12/17 07:07 08:16 09:10 WBC RBC Hct MCV MCH MCHC RDW Plt Count Seg Neuts % (Manual) Lymphocytes % (Manual) Seg Neutrophils # Man Monocytes # (Manual) Basophils # (Manual) PT INR POC ABG pH POC ABG pCO2 POC ABG pO2 VBG pH Sodium Potassium Chloride Carbon Dioxide BUN Creatinine Glucose POC Glucose 170 H 171 H 170 H Lactic Acid Calcium Phosphorus Magnesium Total Creatine Kinase CK-MB (CK-2) Troponin T C-Reactive Protein Total Protein Albumin Triglycerides HDL Cholesterol TSH Urine WBC (Auto) 11/12/17 11/12/17 11/12/17 11:12 12:13 12:13 WBC RBC Hct MCV MCH MCHC RDW Plt Count Seg Neuts % (Manual) Lymphocytes % (Manual) Seg Neutrophils # Man Monocytes # (Manual) Basophils # (Manual) PT INR POC ABG pH 7.316 L POC ABG pCO2 57.4 H POC ABG pO2 46 L VBG pH Sodium Potassium Chloride Carbon Dioxide BUN Creatinine Glucose POC Glucose 145 H 123 H Lactic Acid Calcium Phosphorus Magnesium Total Creatine Kinase CK-MB (CK-2) Troponin T C-Reactive Protein Total Protein Albumin Triglycerides HDL Cholesterol TSH Urine WBC (Auto) 11/12/17 11/12/17 11/12/17 14:52 18:05 18:05 WBC 29.0 H RBC 3.15 L Hct 29.4 L D MCV MCH MCHC 35 H RDW Plt Count 115 L Seg Neuts % (Manual) 90.0 H Lymphocytes % (Manual) 6.0 L Seg Neutrophils # Man 26.1 H Monocytes # (Manual) 1.2 H Basophils # (Manual) PT INR POC ABG pH POC ABG pCO2 POC ABG pO2 VBG pH Sodium 148 H Potassium Chloride Carbon Dioxide BUN 34 H Creatinine 2.9 H Glucose 147 H POC Glucose 139 H Lactic Acid Calcium 6.6 L Phosphorus Magnesium Total Creatine Kinase CK-MB (CK-2) Troponin T C-Reactive Protein Total Protein Albumin Triglycerides HDL Cholesterol TSH Urine WBC (Auto) 11/12/17 11/12/17 11/12/17 18:19 18:23 18:45 WBC RBC Hct MCV MCH MCHC RDW Plt Count Seg Neuts % (Manual) Lymphocytes % (Manual) Seg Neutrophils # Man Monocytes # (Manual) Basophils # (Manual) PT INR POC ABG pH 7.248 L 7.253 L POC ABG pCO2 61.4 H 58.2 H POC ABG pO2 24 L 56 L VBG pH Sodium Potassium Chloride Carbon Dioxide BUN Creatinine Glucose POC Glucose 154 H Lactic Acid Calcium Phosphorus Magnesium Total Creatine Kinase CK-MB (CK-2) Troponin T C-Reactive Protein Total Protein Albumin Triglycerides HDL Cholesterol TSH Urine WBC (Auto) 11/12/17 11/12/17 11/12/17 19:08 20:12 21:14 WBC RBC Hct MCV MCH MCHC RDW Plt Count Seg Neuts % (Manual) Lymphocytes % (Manual) Seg Neutrophils # Man Monocytes # (Manual) Basophils # (Manual) PT INR POC ABG pH POC ABG pCO2 POC ABG pO2 VBG pH Sodium Potassium Chloride Carbon Dioxide BUN Creatinine Glucose POC Glucose 154 H 155 H 130 H Lactic Acid Calcium Phosphorus Magnesium Total Creatine Kinase CK-MB (CK-2) Troponin T C-Reactive Protein Total Protein Albumin Triglycerides HDL Cholesterol TSH Urine WBC (Auto) 11/12/17 11/12/17 11/13/17 21:30 22:08 01:17 WBC RBC Hct MCV MCH MCHC RDW Plt Count Seg Neuts % (Manual) Lymphocytes % (Manual) Seg Neutrophils # Man Monocytes # (Manual) Basophils # (Manual) PT INR POC ABG pH 7.220 L POC ABG pCO2 57.4 H POC ABG pO2 50 L VBG pH Sodium 146 H Potassium Chloride Carbon Dioxide BUN 35 H Creatinine 3.2 H Glucose 120 H POC Glucose 108 H Lactic Acid Calcium 6.3 L Phosphorus Magnesium Total Creatine Kinase CK-MB (CK-2) Troponin T C-Reactive Protein Total Protein Albumin Triglycerides HDL Cholesterol TSH Urine WBC (Auto) 11/13/17 11/13/17 11/13/17 01:30 01:33 03:31 WBC RBC Hct MCV MCH MCHC RDW Plt Count Seg Neuts % (Manual) Lymphocytes % (Manual) Seg Neutrophils # Man Monocytes # (Manual) Basophils # (Manual) PT INR POC ABG pH POC ABG pCO2 POC ABG pO2 VBG pH Sodium 146 H Potassium Chloride Carbon Dioxide BUN 36 H Creatinine 3.4 H Glucose 143 H POC Glucose 117 H 123 H Lactic Acid Calcium 6.0 L Phosphorus Magnesium Total Creatine Kinase CK-MB (CK-2) Troponin T C-Reactive Protein Total Protein Albumin Triglycerides HDL Cholesterol TSH Urine WBC (Auto) 11/13/17 11/13/17 11/13/17 04:25 05:14 06:00 WBC RBC Hct MCV MCH MCHC RDW Plt Count Seg Neuts % (Manual) Lymphocytes % (Manual) Seg Neutrophils # Man Monocytes # (Manual) Basophils # (Manual) PT INR POC ABG pH POC ABG pCO2 POC ABG pO2 VBG pH Sodium Potassium Chloride Carbon Dioxide BUN 39 H Creatinine 3.8 H Glucose 182 H POC Glucose 161 H 163 H Lactic Acid Calcium 6.6 L Phosphorus 4.90 H Magnesium 1.20 L Total Creatine Kinase CK-MB (CK-2) Troponin T C-Reactive Protein Total Protein Albumin Triglycerides HDL Cholesterol TSH Urine WBC (Auto) 11/13/17 11/13/17 11/13/17 06:00 06:07 06:24 WBC 32.3 H RBC 3.40 L Hct MCV MCH MCHC RDW Plt Count 99 L Seg Neuts % (Manual) Lymphocytes % (Manual) Seg Neutrophils # Man Monocytes # (Manual) Basophils # (Manual) PT INR POC ABG pH 7.199 L POC ABG pCO2 58.3 H POC ABG pO2 70 L VBG pH Sodium Potassium Chloride Carbon Dioxide BUN Creatinine Glucose POC Glucose 171 H Lactic Acid Calcium Phosphorus Magnesium Total Creatine Kinase CK-MB (CK-2) Troponin T C-Reactive Protein Total Protein Albumin Triglycerides HDL Cholesterol TSH Urine WBC (Auto) 11/13/17 11/13/17 11/13/17 07:42 08:55 09:25 WBC RBC Hct MCV MCH MCHC RDW Plt Count Seg Neuts % (Manual) Lymphocytes % (Manual) Seg Neutrophils # Man Monocytes # (Manual) Basophils # (Manual) PT INR POC ABG pH POC ABG pCO2 POC ABG pO2 VBG pH Sodium Potassium Chloride Carbon Dioxide BUN Creatinine Glucose POC Glucose 132 H 143 H 123 H Lactic Acid Calcium Phosphorus Magnesium Total Creatine Kinase CK-MB (CK-2) Troponin T C-Reactive Protein Total Protein Albumin Triglycerides HDL Cholesterol TSH Urine WBC (Auto) 11/13/17 11/13/17 11/13/17 10:01 10:30 11:06 WBC RBC Hct MCV MCH MCHC RDW Plt Count Seg Neuts % (Manual) Lymphocytes % (Manual) Seg Neutrophils # Man Monocytes # (Manual) Basophils # (Manual) PT INR POC ABG pH POC ABG pCO2 POC ABG pO2 VBG pH Sodium Potassium Chloride Carbon Dioxide BUN 41 H Creatinine 4.0 H Glucose 127 H POC Glucose 122 H 129 H Lactic Acid Calcium 6.6 L Phosphorus Magnesium Total Creatine Kinase CK-MB (CK-2) Troponin T C-Reactive Protein Total Protein Albumin Triglycerides HDL Cholesterol TSH Urine WBC (Auto) 11/13/17 11/13/17 11/13/17 12:01 12:08 14:59 WBC RBC Hct MCV MCH MCHC RDW Plt Count Seg Neuts % (Manual) Lymphocytes % (Manual) Seg Neutrophils # Man Monocytes # (Manual) Basophils # (Manual) PT INR POC ABG pH 7.307 L POC ABG pCO2 52.9 H POC ABG pO2 VBG pH Sodium Potassium Chloride Carbon Dioxide BUN Creatinine Glucose POC Glucose 122 H 112 H Lactic Acid Calcium Phosphorus Magnesium Total Creatine Kinase CK-MB (CK-2) Troponin T C-Reactive Protein Total Protein Albumin Triglycerides HDL Cholesterol TSH Urine WBC (Auto) 11/13/17 11/13/17 11/13/17 16:15 17:58 19:08 WBC RBC Hct MCV MCH MCHC RDW Plt Count Seg Neuts % (Manual) Lymphocytes % (Manual) Seg Neutrophils # Man Monocytes # (Manual) Basophils # (Manual) PT INR POC ABG pH POC ABG pCO2 POC ABG pO2 VBG pH Sodium Potassium 5.1 H D Chloride Carbon Dioxide BUN 44 H Creatinine 4.3 H Glucose 117 H POC Glucose 128 H 110 H Lactic Acid Calcium 7.0 L Phosphorus Magnesium Total Creatine Kinase CK-MB (CK-2) Troponin T C-Reactive Protein Total Protein Albumin Triglycerides HDL Cholesterol TSH Urine WBC (Auto) 11/13/17 11/13/17 11/13/17 19:59 20:22 21:05 WBC RBC Hct MCV MCH MCHC RDW Plt Count Seg Neuts % (Manual) Lymphocytes % (Manual) Seg Neutrophils # Man Monocytes # (Manual) Basophils # (Manual) PT INR POC ABG pH POC ABG pCO2 POC ABG pO2 VBG pH Sodium Potassium Chloride Carbon Dioxide BUN 48 H Creatinine 4.5 H Glucose 181 H POC Glucose 180 H 134 H Lactic Acid Calcium 7.0 L Phosphorus Magnesium Total Creatine Kinase CK-MB (CK-2) Troponin T C-Reactive Protein Total Protein Albumin Triglycerides HDL Cholesterol TSH Urine WBC (Auto) 11/13/17 11/13/17 11/14/17 22:04 23:08 00:08 WBC RBC Hct MCV MCH MCHC RDW Plt Count Seg Neuts % (Manual) Lymphocytes % (Manual) Seg Neutrophils # Man Monocytes # (Manual) Basophils # (Manual) PT INR POC ABG pH POC ABG pCO2 POC ABG pO2 VBG pH Sodium Potassium Chloride Carbon Dioxide BUN Creatinine Glucose POC Glucose 135 H 143 H 121 H Lactic Acid Calcium Phosphorus Magnesium Total Creatine Kinase CK-MB (CK-2) Troponin T C-Reactive Protein Total Protein Albumin Triglycerides HDL Cholesterol TSH Urine WBC (Auto) 11/14/17 11/14/17 11/14/17 00:37 01:07 01:27 WBC RBC Hct MCV MCH MCHC RDW Plt Count Seg Neuts % (Manual) Lymphocytes % (Manual) Seg Neutrophils # Man Monocytes # (Manual) Basophils # (Manual) PT INR POC ABG pH 7.308 L POC ABG pCO2 POC ABG pO2 161 H VBG pH Sodium Potassium 5.2 H Chloride Carbon Dioxide BUN 49 H Creatinine 4.6 H Glucose 123 H POC Glucose 106 H Lactic Acid Calcium 6.5 L Phosphorus Magnesium Total Creatine Kinase CK-MB (CK-2) Troponin T C-Reactive Protein Total Protein Albumin Triglycerides HDL Cholesterol TSH Urine WBC (Auto) 11/14/17 11/14/17 11/14/17 02:20 03:09 04:00 WBC RBC Hct MCV MCH MCHC RDW Plt Count Seg Neuts % (Manual) Lymphocytes % (Manual) Seg Neutrophils # Man Monocytes # (Manual) Basophils # (Manual) PT INR POC ABG pH POC ABG pCO2 POC ABG pO2 VBG pH Sodium Potassium 5.5 H Chloride Carbon Dioxide BUN 51 H Creatinine 4.5 H Glucose 181 H POC Glucose 130 H 126 H Lactic Acid Calcium 6.6 L Phosphorus Magnesium Total Creatine Kinase CK-MB (CK-2) Troponin T C-Reactive Protein Total Protein Albumin Triglycerides HDL Cholesterol TSH Urine WBC (Auto) 11/14/17 11/14/17 11/14/17 04:00 04:36 06:29 WBC 31.6 H RBC 3.39 L Hct MCV MCH MCHC RDW 15.3 H Plt Count 87 L Seg Neuts % (Manual) Lymphocytes % (Manual) Seg Neutrophils # Man Monocytes # (Manual) Basophils # (Manual) PT INR POC ABG pH POC ABG pCO2 POC ABG pO2 VBG pH Sodium Potassium Chloride Carbon Dioxide BUN Creatinine Glucose POC Glucose 135 H 166 H Lactic Acid Calcium Phosphorus Magnesium Total Creatine Kinase CK-MB (CK-2) Troponin T C-Reactive Protein Total Protein Albumin Triglycerides HDL Cholesterol TSH Urine WBC (Auto) 11/14/17 11/14/17 11/14/17 12:02 12:45 12:45 WBC RBC Hct MCV MCH MCHC RDW Plt Count Seg Neuts % (Manual) Lymphocytes % (Manual) Seg Neutrophils # Man Monocytes # (Manual) Basophils # (Manual) PT 20.8 H INR 1.68 H POC ABG pH POC ABG pCO2 POC ABG pO2 VBG pH Sodium Potassium 5.5 H Chloride Carbon Dioxide 19 L BUN 58 H Creatinine 4.8 H Glucose 313 H POC Glucose 222 H Lactic Acid Calcium 6.4 L Phosphorus Magnesium Total Creatine Kinase CK-MB (CK-2) Troponin T C-Reactive Protein Total Protein Albumin Triglycerides HDL Cholesterol TSH Urine WBC (Auto) 11/14/17 Unknown WBC RBC Hct MCV MCH MCHC RDW Plt Count Seg Neuts % (Manual) Lymphocytes % (Manual) Seg Neutrophils # Man Monocytes # (Manual) Basophils # (Manual) PT INR POC ABG pH POC ABG pCO2 POC ABG pO2 VBG pH Sodium Potassium Chloride Carbon Dioxide BUN Creatinine Glucose POC Glucose Lactic Acid 2.80 H* Calcium Phosphorus Magnesium Total Creatine Kinase CK-MB (CK-2) Troponin T C-Reactive Protein Total Protein Albumin Triglycerides HDL Cholesterol TSH Urine WBC (Auto) Allied health notes reviewed: RT
[2017-11-14 17:17] LABS: Calcium 6.4 mg/dL (8.4-10.2)
[2017-11-14] MEDS: LACTATED RINGERS 1,000 ML IV SCH ×2 (18:14→21:12)
--- NOTE | 2017-11-14 18:24 | Procedure Note ---
Date of procedure: 11/14/17 Pre-op diagnosis: Pneumonia Post-op diagnosis: same Procedure: PULMONARY PROCEDURE NOTE (Bronchoscopy) full dictation # [id number] Please see dictated notes for full details
[2017-11-14] MEDS: fentaNYL DRIP Premix 2,000 MCG/100 ML BAG IV SCH (19:30)
--- NOTE | 2017-11-14 19:31 | Operative Report ---
BRONCHOSCOPY PROCEDURE NOTE PROCEDURE: Fiberoptic bronchoscopy with bronchoalveolar lavage. INDICATIONS: Bilateral pneumonia in a patient with ARDS suspicion for noninfectious pneumonia. Consent was informed and witnessed obtained from the patient's mother. COMPLICATIONS: No immediate procedural complications. The patient was on a paralytic and on sedation at the time of my procedure, no topical lidocaine was used. DESCRIPTION OF PROCEDURE: Procedure details as follows: After informed and with witnessed consent, the fiberoptic bronchoscope was passed through the Bodai valve and advanced into the distal trachea. The intratracheal mucosa was actually pretty unremarkable up until the basilar regions in particular of the left lower lobe. Right upper lobe was briefly entered. It was clean, it had 3 divisions. Right middle lobe was clean. Bronchocentric intermedius and basilar segments examined were pretty much clean. There were 1 or 2 areas of petechiae in the basilar segment of the right lower lobe and fiberoptic bronchoscope was wedged in this segment and sequential aliquots of bronchoalveolar lavage fluid were taken from here. A total of about 15 mL of slightly blood tinged secretions were gotten. Fiberoptic bronchoscope was then withdrawn to the sukhjinder. The left main stem bronchus was entered. It looked clean. The left upper lobe in particular had a bunch of petechial lesions in it. Fiberoptic bronchoscope was wedged in this area and again sequential aliquots of bronchoalveolar lavage samples were taken from here. I then advanced the fiberoptic bronchoscope into the left lower lobe basilar segments. There was one particular segment that had some almost bright red fresh looking mucosal bleeding. Fiberoptic bronchoscope was wedged in this basilar segment and sequential aliquots of bronchoalveolar lavage fluid were taken from here. Fiberoptic bronchoscope was then withdrawn after a quick secondary survey again through the Bodai valve. The patient tolerated the procedure well. RECOMMENDATIONS: 1. Follow up on the cell count and differential of both basilar segments which corresponds with the area of infiltrate of the chest x-ray of the area of persistent infiltrates. 2. Follow up on the cultures from the right middle lobe samples. JOB# [id number] SANDOR/GUY
[2017-11-14] MEDS: SODIUM CHLORIDE FLUSH SYRINGE 10 ML IV SCH ×2 (19:56→23:45)
[2017-11-14] MEDS ORDERED: CALCIUM GLUCONATE 2,000 MG in NACL 0.9% 100 ML IV ONE (20:54)
[2017-11-15] MEDS ORDERED: HEPARIN ONE (00:24)
[2017-11-15] MEDS ORDERED: NACL P/F VIAL (10 ML) ONE (00:24)
[2017-11-15] MEDS: NIMBEX IV SCH ×4 (01:51→07:23)
[2017-11-15] MEDS: NACL 0.9% IV SCH ×4 (01:51→07:23)
[2017-11-15] MEDS: CLEOCIN 600 MG/50 mL 600 MG/50 ML BAG IV SCH ×3 (03:29→18:10)
--- NOTE | 2017-11-15 04:31 | XRay Report ---
FINAL REPORT EXAM: XR CHEST 1V AP HISTORY: follow up respiratory failure TECHNIQUE: A portable view of the chest was obtained and compared to the study of 11/14/2017. FINDINGS: The tip of the ET tube is 3 cm above the sukhjinder. The NG tube is in good position in the stomach. The right-sided central venous line is in good position in the superior vena cava. The heart size is normal. The lungs are mildly congested. There is worsening airspace disease in both lung bases. Small effusions cannot be excluded. The skeletal structures do not show any acute changes. IMPRESSION: Pulmonary vascular congestion with worsening airspace disease in both lower lobes. Small effusions cannot be excluded. Satisfactory position of tubes and lines.
[2017-11-15] MEDS: HumuLIN R SUB-Q SCH ×3 (05:45→18:58)
[2017-11-15] MEDS: SYNTHROID IV SCH (05:46)
[2017-11-15 07:01] LABS: Calcium 6.7 mg/dL (8.4-10.2)
[2017-11-15] MEDS: LACTATED RINGERS 1,000 ML IV SCH ×2 (07:34→18:15)
--- NOTE | 2017-11-15 08:45 | Progress Note ---
Assessment and Plan Acute hypoxemic respiratory failure.. s/p cardiorespiratory arrest Subcutaneous emphysema( resolved) DKA Severe Sepsis with septic shock Severe metabolic acidosis Acute renal failure ARDS Hypernatremia Encephalopathy, metabolic -VAP bundle addressed -Antibiotics per ID -Cardiology following -Correct electrolyte abnormalities, give calcium - Continue steroids for vasopressor unresponsive shock -ABG and CXR qam and prn -Discontinue fentanyl -Follow up CTscan head results....patietn clinically does not appear to have brain stem reflexes -Nutritional support, trophic feeding -Insulin infusion for glycemic control Full code Prognosis is grave Discussed with her mother extensively Subjective Date of service: 11/15/17 Principal diagnosis: s/p cardiac arrest Interval history: 37 y/o female with history of uncontrolled DM, non compliance with diabetes meds , previous admissions due to DKA, gastroparesis; brought to the hospital on 11/10 severely lethargic by her common law at home. Per her , she celebrated her birthday 2 days before admission, she had some drinks with friends. The following day she developed severe nausea, vomiting and abdominal pain. She did not have any cough, SOB or cold symptoms. She did not eat cake or sweets. EMS was called and she had a glucose above 500. In the ED, temp 92, HR 72, R 16, BP 88/31. WBC 39K. Hg 11.5. Plat 469. Sodium 151. Creat 1.8. Glu 541. CXR RLL infiltrate . Intubated in the ER. S/P PEA cardiac arrest Patient is seen today for: Acute hypoxic respiratory, severe sepsis with septic shock, LOC, Acute encephalopathy, s/p cardiac arrest (PEA) Seen and examined. Vitals, labs, medications, chart and imaging reviewed. Oxygenation improved, weaning off vasopressor support. Discussed with RT and RN 24 hour events reviewed, no acute overnight events reported Objective - Exam Narrative Exam: General appearance: sedated on the vent no dyssynchrony Eyes: anicteric sclerae, moist conjunctivae; no lid-lag; Fixed dilated pupils, non responsive No gag, no cough reflex HENT: Atraumatic; oropharynx +ETT +NGT Neck: Trachea midline;+right submandibular wound with minimal induration and no drainage Lungs: CTA, with normal respiratory effort and no intercostal retractions CV:tachycardia Abdomen: Soft, non-tender Extremities: kathleen legs peripheral edema Skin: Normal temperature, turgor and texture; no rash, ulcers or subcutaneous nodules Psych: unable to assess Neuro:unresponsive Lines:Right Subclavian CVC Vital Signs - 12hr 11/14/17 11/14/17 11/14/17 21:00 21:15 21:30 Temperature Pulse Rate 100 H 100 H 100 H Respiratory 28 H 28 H 28 H Rate Blood Pressure 111/61 107/61 114/67 O2 Sat by Pulse 98 98 98 Oximetry 11/14/17 11/14/17 11/14/17 21:45 22:00 22:15 Temperature Pulse Rate 99 H 99 H 99 H Respiratory 28 H 28 H 28 H Rate Blood Pressure 117/69 118/70 119/75 O2 Sat by Pulse 98 98 98 Oximetry 11/14/17 11/14/17 11/14/17 22:30 22:45 22:52 Temperature Pulse Rate 99 H 100 H 100 H Respiratory 28 H 28 H Rate Blood Pressure 120/75 113/62 O2 Sat by Pulse 98 99 Oximetry 11/14/17 11/14/17 11/14/17 23:00 23:15 23:30 Temperature Pulse Rate 100 H 101 H 101 H Respiratory 28 H 28 H 28 H Rate Blood Pressure 106/58 102/52 102/57 O2 Sat by Pulse 98 99 98 Oximetry 11/14/17 11/14/17 11/14/17 23:43 23:45 23:48 Temperature Pulse Rate 99 H 100 H 100 H Respiratory 28 H 28 H Rate Blood Pressure 102/57 107/62 102/57 O2 Sat by Pulse 100 98 100 Oximetry 11/15/17 11/15/17 11/15/17 00:00 00:06 00:15 Temperature 99.8 F H Pulse Rate 100 H 100 H 100 H Respiratory 28 H 28 H 28 H Rate Blood Pressure 106/60 106/60 108/60 O2 Sat by Pulse 98 99 98 Oximetry 11/15/17 11/15/17 11/15/17 00:30 00:45 01:00 Temperature Pulse Rate 100 H 100 H 101 H Respiratory 28 H 28 H 28 H Rate Blood Pressure 105/60 106/59 104/58 O2 Sat by Pulse 98 98 98 Oximetry 11/15/17 11/15/17 11/15/17 01:15 01:30 01:45 Temperature Pulse Rate 101 H 101 H 101 H Respiratory 28 H 28 H 28 H Rate Blood Pressure 107/58 107/61 107/62 O2 Sat by Pulse 98 98 98 Oximetry 11/15/17 11/15/17 11/15/17 02:00 02:16 02:30 Temperature Pulse Rate 101 H 101 H 99 H Respiratory 28 H 28 H 28 H Rate Blood Pressure 107/62 110/63 107/62 O2 Sat by Pulse 99 99 100 Oximetry 11/15/17 11/15/17 11/15/17 02:46 03:00 03:15 Temperature Pulse Rate 99 H 98 H Respiratory 28 H 28 H Rate Blood Pressure 121/72 O2 Sat by Pulse 99 95 98 Oximetry 11/15/17 11/15/17 11/15/17 03:30 03:45 04:00 Temperature 98.6 F Pulse Rate 97 H 95 H 95 H Respiratory 28 H 28 H 27 H Rate Blood Pressure 122/80 127/81 127/84 O2 Sat by Pulse 97 97 98 Oximetry 11/15/17 11/15/17 11/15/17 04:15 04:22 04:30 Temperature Pulse Rate 93 H 93 H 95 H Respiratory 28 H 28 H Rate Blood Pressure 127/86 127/86 130/82 O2 Sat by Pulse 97 100 97 Oximetry 11/15/17 11/15/17 11/15/17 04:45 05:00 05:15 Temperature Pulse Rate 95 H 95 H 95 H Respiratory 28 H 28 H 28 H Rate Blood Pressure 131/89 119/80 112/66 O2 Sat by Pulse 96 96 96 Oximetry 11/15/17 11/15/17 11/15/17 05:30 05:45 06:00 Temperature Pulse Rate 96 H 95 H 95 H Respiratory 28 H 28 H 28 H Rate Blood Pressure 127/87 126/87 134/89 O2 Sat by Pulse 96 97 97 Oximetry CBC and BMP: 11/17/17 05:15 11/17/17 05:15 ABG, PT/INR, D-dimer: ABG POC ABG pH 7.287 (7.35-7.45) L 11/15/17 04:23 POC ABG pCO2 41.8 (35-45) 11/15/17 04:23 POC ABG pO2 141 (80-105) H 11/15/17 04:23 POC ABG HCO3 20.0 11/15/17 04:23 POC ABG Total CO2 21 11/15/17 04:23 POC ABG O2 Sat 99 11/15/17 04:23 PT/INR, D-dimer PT 20.8 Sec. (12.2-14.9) H 11/14/17 12:45 INR 1.68 (0.87-1.13) H 11/14/17 12:45 Abnormal lab findings: Abnormal Labs 11/10/17 11/10/17 11/10/17 19:54 20:18 20:18 WBC 39.8 H RBC 3.59 L Hct MCV 117 H MCH MCHC 27 L RDW Plt Count 469 H Seg Neuts % (Manual) 93.5 H Lymphocytes % (Manual) 3.0 L Seg Neutrophils # Man 37.2 H Monocytes # (Manual) 1.0 H Basophils # (Manual) 0.2 H PT 18.8 H INR 1.48 H POC ABG pH POC ABG pCO2 POC ABG pO2 VBG pH Sodium Potassium Chloride Carbon Dioxide BUN Creatinine Glucose POC Glucose 488 H Lactic Acid Calcium Phosphorus Magnesium Total Creatine Kinase CK-MB (CK-2) Troponin T C-Reactive Protein Total Protein Albumin Triglycerides HDL Cholesterol TSH Urine WBC (Auto) 11/10/17 11/10/17 11/10/17 20:18 20:18 20:18 WBC RBC Hct MCV MCH MCHC RDW Plt Count Seg Neuts % (Manual) Lymphocytes % (Manual) Seg Neutrophils # Man Monocytes # (Manual) Basophils # (Manual) PT INR POC ABG pH POC ABG pCO2 POC ABG pO2 VBG pH 6.763 L* Sodium 125 L Potassium 7.5 H* Chloride 82.9 L Carbon Dioxide 2 L* BUN 33 H Creatinine 1.8 H Glucose 976 H* POC Glucose Lactic Acid 3.00 H* Calcium 7.6 L Phosphorus Magnesium Total Creatine Kinase CK-MB (CK-2) Troponin T C-Reactive Protein Total Protein 6.2 L Albumin 3.5 L Triglycerides HDL Cholesterol TSH Urine WBC (Auto) 11/10/17 11/10/17 11/10/17 20:35 20:35 22:07 WBC RBC Hct MCV MCH MCHC RDW Plt Count Seg Neuts % (Manual) Lymphocytes % (Manual) Seg Neutrophils # Man Monocytes # (Manual) Basophils # (Manual) PT INR POC ABG pH POC ABG pCO2 POC ABG pO2 VBG pH Sodium 124 L Potassium 7.6 H* Chloride 82.0 L Carbon Dioxide 3 L* BUN 33 H Creatinine 1.8 H Glucose 977 H* POC Glucose 481 H Lactic Acid Calcium 7.8 L Phosphorus 9.40 H Magnesium 2.70 H Total Creatine Kinase CK-MB (CK-2) Troponin T C-Reactive Protein Total Protein Albumin Triglycerides HDL Cholesterol TSH Urine WBC (Auto) 11/10/17 11/10/17 11/10/17 23:06 23:06 23:15 WBC RBC Hct MCV MCH MCHC RDW Plt Count Seg Neuts % (Manual) Lymphocytes % (Manual) Seg Neutrophils # Man Monocytes # (Manual) Basophils # (Manual) PT INR POC ABG pH POC ABG pCO2 POC ABG pO2 VBG pH Sodium 133 L D Potassium 5.6 H D Chloride 97.1 L Carbon Dioxide 3 L* BUN 32 H Creatinine 1.6 H Glucose 664 H* POC Glucose Lactic Acid 2.30 H* Calcium 6.8 L Phosphorus Magnesium Total Creatine Kinase CK-MB (CK-2) Troponin T C-Reactive Protein Total Protein Albumin Triglycerides HDL Cholesterol TSH 15.990 H Urine WBC (Auto) 11/10/17 11/10/17 11/11/17 23:29 Unknown 00:01 WBC RBC Hct MCV MCH MCHC RDW Plt Count Seg Neuts % (Manual) Lymphocytes % (Manual) Seg Neutrophils # Man Monocytes # (Manual) Basophils # (Manual) PT INR POC ABG pH POC ABG pCO2 POC ABG pO2 VBG pH 6.881 L* Sodium Potassium Chloride Carbon Dioxide BUN Creatinine Glucose POC Glucose 481 H Lactic Acid Calcium Phosphorus Magnesium Total Creatine Kinase CK-MB (CK-2) Troponin T C-Reactive Protein Total Protein Albumin Triglycerides HDL Cholesterol TSH Urine WBC (Auto) 8.0 H 11/11/17 11/11/17 11/11/17 00:01 00:46 00:46 WBC RBC Hct MCV MCH MCHC RDW Plt Count Seg Neuts % (Manual) Lymphocytes % (Manual) Seg Neutrophils # Man Monocytes # (Manual) Basophils # (Manual) PT INR POC ABG pH POC ABG pCO2 POC ABG pO2 VBG pH Sodium 135 L Potassium Chloride Carbon Dioxide 3 L* 5 L* BUN 32 H 32 H Creatinine 1.5 H 1.5 H Glucose 579 H* 560 H* POC Glucose Lactic Acid 2.40 H* Calcium 6.9 L 6.8 L Phosphorus Magnesium Total Creatine Kinase CK-MB (CK-2) Troponin T C-Reactive Protein Total Protein Albumin Triglycerides HDL Cholesterol TSH Urine WBC (Auto) 11/11/17 11/11/17 11/11/17 00:58 02:19 02:21 WBC RBC Hct MCV MCH MCHC RDW Plt Count Seg Neuts % (Manual) Lymphocytes % (Manual) Seg Neutrophils # Man Monocytes # (Manual) Basophils # (Manual) PT INR POC ABG pH POC ABG pCO2 POC ABG pO2 VBG pH Sodium Potassium Chloride Carbon Dioxide BUN Creatinine Glucose POC Glucose > 500 H < 40 L 457 H Lactic Acid Calcium Phosphorus Magnesium Total Creatine Kinase CK-MB (CK-2) Troponin T C-Reactive Protein Total Protein Albumin Triglycerides HDL Cholesterol TSH Urine WBC (Auto) 11/11/17 11/11/17 11/11/17 03:31 03:45 03:45 WBC RBC Hct MCV MCH MCHC RDW Plt Count Seg Neuts % (Manual) Lymphocytes % (Manual) Seg Neutrophils # Man Monocytes # (Manual) Basophils # (Manual) PT INR POC ABG pH POC ABG pCO2 POC ABG pO2 VBG pH Sodium 147 H D Potassium 2.9 L* D Chloride Carbon Dioxide 11 L BUN 31 H Creatinine 1.8 H Glucose 587 H* POC Glucose 436 H Lactic Acid 9.50 H* Calcium 6.4 L Phosphorus Magnesium Total Creatine Kinase CK-MB (CK-2) Troponin T C-Reactive Protein Total Protein Albumin Triglycerides HDL Cholesterol TSH Urine WBC (Auto) 11/11/17 11/11/17 11/11/17 04:16 04:45 05:50 WBC RBC Hct MCV MCH MCHC RDW Plt Count Seg Neuts % (Manual) Lymphocytes % (Manual) Seg Neutrophils # Man Monocytes # (Manual) Basophils # (Manual) PT INR POC ABG pH 7.036 L POC ABG pCO2 POC ABG pO2 66 L VBG pH Sodium Potassium Chloride Carbon Dioxide BUN Creatinine Glucose POC Glucose 495 H > 500 H Lactic Acid Calcium Phosphorus Magnesium Total Creatine Kinase CK-MB (CK-2) Troponin T C-Reactive Protein Total Protein Albumin Triglycerides HDL Cholesterol TSH Urine WBC (Auto) 11/11/17 11/11/17 11/11/17 06:29 06:29 06:41 WBC RBC Hct MCV MCH MCHC RDW Plt Count Seg Neuts % (Manual) Lymphocytes % (Manual) Seg Neutrophils # Man Monocytes # (Manual) Basophils # (Manual) PT INR POC ABG pH POC ABG pCO2 POC ABG pO2 VBG pH Sodium 149 H Potassium 3.0 L Chloride 109.5 H Carbon Dioxide 17 L BUN 31 H Creatinine 1.7 H Glucose 407 H POC Glucose 387 H Lactic Acid 2.60 H* Calcium 6.2 L Phosphorus Magnesium Total Creatine Kinase CK-MB (CK-2) Troponin T C-Reactive Protein Total Protein Albumin Triglycerides HDL Cholesterol TSH Urine WBC (Auto) 11/11/17 11/11/17 11/11/17 07:05 07:07 07:07 WBC RBC Hct MCV MCH MCHC RDW Plt Count Seg Neuts % (Manual) Lymphocytes % (Manual) Seg Neutrophils # Man Monocytes # (Manual) Basophils # (Manual) PT INR POC ABG pH POC ABG pCO2 POC ABG pO2 VBG pH Sodium 151 H Potassium 3.0 L Chloride 107.5 H Carbon Dioxide 11 L BUN 31 H Creatinine 1.8 H Glucose 541 H* POC Glucose 378 H Lactic Acid Calcium 6.5 L Phosphorus Magnesium Total Creatine Kinase 686 H CK-MB (CK-2) 19.6 H Troponin T C-Reactive Protein Total Protein Albumin Triglycerides HDL Cholesterol TSH Urine WBC (Auto) 11/11/17 11/11/17 11/11/17 08:50 08:52 09:57 WBC RBC Hct MCV MCH MCHC RDW Plt Count Seg Neuts % (Manual) Lymphocytes % (Manual) Seg Neutrophils # Man Monocytes # (Manual) Basophils # (Manual) PT INR POC ABG pH 7.175 L POC ABG pCO2 45.1 H POC ABG pO2 33 L VBG pH Sodium Potassium Chloride Carbon Dioxide BUN Creatinine Glucose POC Glucose 256 H 232 H Lactic Acid Calcium Phosphorus Magnesium Total Creatine Kinase CK-MB (CK-2) Troponin T C-Reactive Protein Total Protein Albumin Triglycerides HDL Cholesterol TSH Urine WBC (Auto) 11/11/17 11/11/17 11/11/17 10:45 10:45 11:08 WBC RBC Hct MCV MCH 33 H MCHC RDW Plt Count Seg Neuts % (Manual) Lymphocytes % (Manual) Seg Neutrophils # Man Monocytes # (Manual) Basophils # (Manual) PT INR POC ABG pH 7.157 L POC ABG pCO2 52.2 H POC ABG pO2 31 L VBG pH Sodium Potassium Chloride Carbon Dioxide BUN Creatinine Glucose POC Glucose Lactic Acid Calcium Phosphorus Magnesium Total Creatine Kinase 1041 H CK-MB (CK-2) 31.9 H Troponin T 0.041 H D C-Reactive Protein Total Protein Albumin Triglycerides 510 H HDL Cholesterol 26 L TSH Urine WBC (Auto) 11/11/17 11/11/17 11/11/17 11:12 12:33 12:38 WBC RBC Hct MCV MCH MCHC RDW Plt Count Seg Neuts % (Manual) Lymphocytes % (Manual) Seg Neutrophils # Man Monocytes # (Manual) Basophils # (Manual) PT INR POC ABG pH 7.258 L POC ABG pCO2 94.5 H POC ABG pO2 50 L VBG pH Sodium Potassium Chloride Carbon Dioxide BUN Creatinine Glucose POC Glucose 246 H 265 H Lactic Acid Calcium Phosphorus Magnesium Total Creatine Kinase CK-MB (CK-2) Troponin T C-Reactive Protein Total Protein Albumin Triglycerides HDL Cholesterol TSH Urine WBC (Auto) 11/11/17 11/11/17 11/11/17 12:40 12:40 12:40 WBC RBC Hct MCV MCH MCHC RDW Plt Count Seg Neuts % (Manual) Lymphocytes % (Manual) Seg Neutrophils # Man Monocytes # (Manual) Basophils # (Manual) PT INR POC ABG pH POC ABG pCO2 POC ABG pO2 VBG pH Sodium 171 H* D Potassium 2.9 L* Chloride 118.2 H Carbon Dioxide 39 H D BUN 28 H Creatinine 1.8 H Glucose 301 H POC Glucose Lactic Acid 11.70 H* Calcium 11.4 H D Phosphorus Magnesium Total Creatine Kinase CK-MB (CK-2) Troponin T C-Reactive Protein 7.40 H Total Protein Albumin Triglycerides HDL Cholesterol TSH Urine WBC (Auto) 11/11/17 11/11/17 11/11/17 13:58 14:53 15:42 WBC RBC Hct MCV MCH MCHC RDW Plt Count Seg Neuts % (Manual) Lymphocytes % (Manual) Seg Neutrophils # Man Monocytes # (Manual) Basophils # (Manual) PT INR POC ABG pH POC ABG pCO2 POC ABG pO2 VBG pH Sodium Potassium Chloride Carbon Dioxide BUN Creatinine Glucose POC Glucose 244 H 273 H 311 H Lactic Acid Calcium Phosphorus Magnesium Total Creatine Kinase CK-MB (CK-2) Troponin T C-Reactive Protein Total Protein Albumin Triglycerides HDL Cholesterol TSH Urine WBC (Auto) 11/11/17 11/11/17 11/11/17 16:08 17:09 18:41 WBC RBC Hct MCV MCH MCHC RDW Plt Count Seg Neuts % (Manual) Lymphocytes % (Manual) Seg Neutrophils # Man Monocytes # (Manual) Basophils # (Manual) PT INR POC ABG pH POC ABG pCO2 POC ABG pO2 VBG pH Sodium 153 H D Potassium 3.3 L Chloride 112.6 H Carbon Dioxide 14 L D BUN 30 H Creatinine 2.1 H Glucose 301 H POC Glucose 337 H 262 H Lactic Acid Calcium 7.8 L D Phosphorus Magnesium Total Creatine Kinase CK-MB (CK-2) Troponin T C-Reactive Protein Total Protein Albumin Triglycerides HDL Cholesterol TSH Urine WBC (Auto) 11/11/17 11/11/17 11/11/17 19:49 20:14 20:25 WBC RBC Hct MCV MCH MCHC RDW Plt Count Seg Neuts % (Manual) Lymphocytes % (Manual) Seg Neutrophils # Man Monocytes # (Manual) Basophils # (Manual) PT INR POC ABG pH POC ABG pCO2 POC ABG pO2 VBG pH Sodium 154 H Potassium 2.7 L* Chloride 110.8 H Carbon Dioxide 20 L BUN 31 H Creatinine 2.4 H Glucose 261 H POC Glucose 281 H 265 H Lactic Acid Calcium 7.9 L Phosphorus Magnesium Total Creatine Kinase CK-MB (CK-2) Troponin T C-Reactive Protein Total Protein Albumin Triglycerides HDL Cholesterol TSH Urine WBC (Auto) 11/11/17 11/11/17 11/11/17 20:53 21:55 23:17 WBC RBC Hct MCV MCH MCHC RDW Plt Count Seg Neuts % (Manual) Lymphocytes % (Manual) Seg Neutrophils # Man Monocytes # (Manual) Basophils # (Manual) PT INR POC ABG pH POC ABG pCO2 POC ABG pO2 VBG pH Sodium Potassium Chloride Carbon Dioxide BUN Creatinine Glucose POC Glucose 274 H 209 H 180 H Lactic Acid Calcium Phosphorus Magnesium Total Creatine Kinase CK-MB (CK-2) Troponin T C-Reactive Protein Total Protein Albumin Triglycerides HDL Cholesterol TSH Urine WBC (Auto) 11/12/17 11/12/17 11/12/17 00:09 00:26 01:12 WBC RBC Hct MCV MCH MCHC RDW Plt Count Seg Neuts % (Manual) Lymphocytes % (Manual) Seg Neutrophils # Man Monocytes # (Manual) Basophils # (Manual) PT INR POC ABG pH POC ABG pCO2 POC ABG pO2 VBG pH Sodium 154 H Potassium Chloride 113.1 H Carbon Dioxide 17 L BUN 34 H Creatinine 2.5 H Glucose 144 H POC Glucose 176 H 148 H Lactic Acid Calcium 7.7 L Phosphorus Magnesium Total Creatine Kinase CK-MB (CK-2) Troponin T C-Reactive Protein Total Protein Albumin Triglycerides HDL Cholesterol TSH Urine WBC (Auto) 11/12/17 11/12/17 11/12/17 02:05 03:27 04:22 WBC RBC Hct MCV MCH MCHC RDW Plt Count Seg Neuts % (Manual) Lymphocytes % (Manual) Seg Neutrophils # Man Monocytes # (Manual) Basophils # (Manual) PT INR POC ABG pH POC ABG pCO2 POC ABG pO2 VBG pH Sodium Potassium Chloride Carbon Dioxide BUN Creatinine Glucose POC Glucose 148 H 156 H 137 H Lactic Acid Calcium Phosphorus Magnesium Total Creatine Kinase CK-MB (CK-2) Troponin T C-Reactive Protein Total Protein Albumin Triglycerides HDL Cholesterol TSH Urine WBC (Auto) 11/12/17 11/12/17 11/12/17 04:42 05:06 05:34 WBC RBC Hct MCV MCH MCHC RDW Plt Count Seg Neuts % (Manual) Lymphocytes % (Manual) Seg Neutrophils # Man Monocytes # (Manual) Basophils # (Manual) PT INR POC ABG pH POC ABG pCO2 POC ABG pO2 56 L VBG pH Sodium 154 H Potassium 3.2 L D Chloride 109.8 H Carbon Dioxide BUN 32 H Creatinine 2.6 H Glucose 157 H POC Glucose 163 H Lactic Acid Calcium 7.3 L Phosphorus Magnesium Total Creatine Kinase CK-MB (CK-2) Troponin T C-Reactive Protein Total Protein Albumin Triglycerides HDL Cholesterol TSH Urine WBC (Auto) 11/12/17 11/12/17 11/12/17 05:42 06:23 06:36 WBC RBC Hct MCV MCH MCHC RDW Plt Count Seg Neuts % (Manual) Lymphocytes % (Manual) Seg Neutrophils # Man Monocytes # (Manual) Basophils # (Manual) PT INR POC ABG pH POC ABG pCO2 POC ABG pO2 VBG pH Sodium Potassium Chloride Carbon Dioxide BUN Creatinine Glucose POC Glucose 166 H 171 H 181 H Lactic Acid Calcium Phosphorus Magnesium Total Creatine Kinase CK-MB (CK-2) Troponin T C-Reactive Protein Total Protein Albumin Triglycerides HDL Cholesterol TSH Urine WBC (Auto) 11/12/17 11/12/17 11/12/17 07:07 08:16 09:10 WBC RBC Hct MCV MCH MCHC RDW Plt Count Seg Neuts % (Manual) Lymphocytes % (Manual) Seg Neutrophils # Man Monocytes # (Manual) Basophils # (Manual) PT INR POC ABG pH POC ABG pCO2 POC ABG pO2 VBG pH Sodium Potassium Chloride Carbon Dioxide BUN Creatinine Glucose POC Glucose 170 H 171 H 170 H Lactic Acid Calcium Phosphorus Magnesium Total Creatine Kinase CK-MB (CK-2) Troponin T C-Reactive Protein Total Protein Albumin Triglycerides HDL Cholesterol TSH Urine WBC (Auto) 11/12/17 11/12/17 11/12/17 11:12 12:13 12:13 WBC RBC Hct MCV MCH MCHC RDW Plt Count Seg Neuts % (Manual) Lymphocytes % (Manual) Seg Neutrophils # Man Monocytes # (Manual) Basophils # (Manual) PT INR POC ABG pH 7.316 L POC ABG pCO2 57.4 H POC ABG pO2 46 L VBG pH Sodium Potassium Chloride Carbon Dioxide BUN Creatinine Glucose POC Glucose 145 H 123 H Lactic Acid Calcium Phosphorus Magnesium Total Creatine Kinase CK-MB (CK-2) Troponin T C-Reactive Protein Total Protein Albumin Triglycerides HDL Cholesterol TSH Urine WBC (Auto) 11/12/17 11/12/17 11/12/17 14:52 18:05 18:05 WBC 29.0 H RBC 3.15 L Hct 29.4 L D MCV MCH MCHC 35 H RDW Plt Count 115 L Seg Neuts % (Manual) 90.0 H Lymphocytes % (Manual) 6.0 L Seg Neutrophils # Man 26.1 H Monocytes # (Manual) 1.2 H Basophils # (Manual) PT INR POC ABG pH POC ABG pCO2 POC ABG pO2 VBG pH Sodium 148 H Potassium Chloride Carbon Dioxide BUN 34 H Creatinine 2.9 H Glucose 147 H POC Glucose 139 H Lactic Acid Calcium 6.6 L Phosphorus Magnesium Total Creatine Kinase CK-MB (CK-2) Troponin T C-Reactive Protein Total Protein Albumin Triglycerides HDL Cholesterol TSH Urine WBC (Auto) 11/12/17 11/12/17 11/12/17 18:19 18:23 18:45 WBC RBC Hct MCV MCH MCHC RDW Plt Count Seg Neuts % (Manual) Lymphocytes % (Manual) Seg Neutrophils # Man Monocytes # (Manual) Basophils # (Manual) PT INR POC ABG pH 7.248 L 7.253 L POC ABG pCO2 61.4 H 58.2 H POC ABG pO2 24 L 56 L VBG pH Sodium Potassium Chloride Carbon Dioxide BUN Creatinine Glucose POC Glucose 154 H Lactic Acid Calcium Phosphorus Magnesium Total Creatine Kinase CK-MB (CK-2) Troponin T C-Reactive Protein Total Protein Albumin Triglycerides HDL Cholesterol TSH Urine WBC (Auto) 11/12/17 11/12/17 11/12/17 19:08 20:12 21:14 WBC RBC Hct MCV MCH MCHC RDW Plt Count Seg Neuts % (Manual) Lymphocytes % (Manual) Seg Neutrophils # Man Monocytes # (Manual) Basophils # (Manual) PT INR POC ABG pH POC ABG pCO2 POC ABG pO2 VBG pH Sodium Potassium Chloride Carbon Dioxide BUN Creatinine Glucose POC Glucose 154 H 155 H 130 H Lactic Acid Calcium Phosphorus Magnesium Total Creatine Kinase CK-MB (CK-2) Troponin T C-Reactive Protein Total Protein Albumin Triglycerides HDL Cholesterol TSH Urine WBC (Auto) 11/12/17 11/12/17 11/13/17 21:30 22:08 01:17 WBC RBC Hct MCV MCH MCHC RDW Plt Count Seg Neuts % (Manual) Lymphocytes % (Manual) Seg Neutrophils # Man Monocytes # (Manual) Basophils # (Manual) PT INR POC ABG pH 7.220 L POC ABG pCO2 57.4 H POC ABG pO2 50 L VBG pH Sodium 146 H Potassium Chloride Carbon Dioxide BUN 35 H Creatinine 3.2 H Glucose 120 H POC Glucose 108 H Lactic Acid Calcium 6.3 L Phosphorus Magnesium Total Creatine Kinase CK-MB (CK-2) Troponin T C-Reactive Protein Total Protein Albumin Triglycerides HDL Cholesterol TSH Urine WBC (Auto) 11/13/17 11/13/17 11/13/17 01:30 01:33 03:31 WBC RBC Hct MCV MCH MCHC RDW Plt Count Seg Neuts % (Manual) Lymphocytes % (Manual) Seg Neutrophils # Man Monocytes # (Manual) Basophils # (Manual) PT INR POC ABG pH POC ABG pCO2 POC ABG pO2 VBG pH Sodium 146 H Potassium Chloride Carbon Dioxide BUN 36 H Creatinine 3.4 H Glucose 143 H POC Glucose 117 H 123 H Lactic Acid Calcium 6.0 L Phosphorus Magnesium Total Creatine Kinase CK-MB (CK-2) Troponin T C-Reactive Protein Total Protein Albumin Triglycerides HDL Cholesterol TSH Urine WBC (Auto) 11/13/17 11/13/17 11/13/17 04:25 05:14 06:00 WBC RBC Hct MCV MCH MCHC RDW Plt Count Seg Neuts % (Manual) Lymphocytes % (Manual) Seg Neutrophils # Man Monocytes # (Manual) Basophils # (Manual) PT INR POC ABG pH POC ABG pCO2 POC ABG pO2 VBG pH Sodium Potassium Chloride Carbon Dioxide BUN 39 H Creatinine 3.8 H Glucose 182 H POC Glucose 161 H 163 H Lactic Acid Calcium 6.6 L Phosphorus 4.90 H Magnesium 1.20 L Total Creatine Kinase CK-MB (CK-2) Troponin T C-Reactive Protein Total Protein Albumin Triglycerides HDL Cholesterol TSH Urine WBC (Auto) 11/13/17 11/13/17 11/13/17 06:00 06:07 06:24 WBC 32.3 H RBC 3.40 L Hct MCV MCH MCHC RDW Plt Count 99 L Seg Neuts % (Manual) Lymphocytes % (Manual) Seg Neutrophils # Man Monocytes # (Manual) Basophils # (Manual) PT INR POC ABG pH 7.199 L POC ABG pCO2 58.3 H POC ABG pO2 70 L VBG pH Sodium Potassium Chloride Carbon Dioxide BUN Creatinine Glucose POC Glucose 171 H Lactic Acid Calcium Phosphorus Magnesium Total Creatine Kinase CK-MB (CK-2) Troponin T C-Reactive Protein Total Protein Albumin Triglycerides HDL Cholesterol TSH Urine WBC (Auto) 11/13/17 11/13/17 11/13/17 07:42 08:55 09:25 WBC RBC Hct MCV MCH MCHC RDW Plt Count Seg Neuts % (Manual) Lymphocytes % (Manual) Seg Neutrophils # Man Monocytes # (Manual) Basophils # (Manual) PT INR POC ABG pH POC ABG pCO2 POC ABG pO2 VBG pH Sodium Potassium Chloride Carbon Dioxide BUN Creatinine Glucose POC Glucose 132 H 143 H 123 H Lactic Acid Calcium Phosphorus Magnesium Total Creatine Kinase CK-MB (CK-2) Troponin T C-Reactive Protein Total Protein Albumin Triglycerides HDL Cholesterol TSH Urine WBC (Auto) 11/13/17 11/13/17 11/13/17 10:01 10:30 11:06 WBC RBC Hct MCV MCH MCHC RDW Plt Count Seg Neuts % (Manual) Lymphocytes % (Manual) Seg Neutrophils # Man Monocytes # (Manual) Basophils # (Manual) PT INR POC ABG pH POC ABG pCO2 POC ABG pO2 VBG pH Sodium Potassium Chloride Carbon Dioxide BUN 41 H Creatinine 4.0 H Glucose 127 H POC Glucose 122 H 129 H Lactic Acid Calcium 6.6 L Phosphorus Magnesium Total Creatine Kinase CK-MB (CK-2) Troponin T C-Reactive Protein Total Protein Albumin Triglycerides HDL Cholesterol TSH Urine WBC (Auto) 11/13/17 11/13/17 11/13/17 12:01 12:08 14:59 WBC RBC Hct MCV MCH MCHC RDW Plt Count Seg Neuts % (Manual) Lymphocytes % (Manual) Seg Neutrophils # Man Monocytes # (Manual) Basophils # (Manual) PT INR POC ABG pH 7.307 L POC ABG pCO2 52.9 H POC ABG pO2 VBG pH Sodium Potassium Chloride Carbon Dioxide BUN Creatinine Glucose POC Glucose 122 H 112 H Lactic Acid Calcium Phosphorus Magnesium Total Creatine Kinase CK-MB (CK-2) Troponin T C-Reactive Protein Total Protein Albumin Triglycerides HDL Cholesterol TSH Urine WBC (Auto) 11/13/17 11/13/17 11/13/17 16:15 17:58 19:08 WBC RBC Hct MCV MCH MCHC RDW Plt Count Seg Neuts % (Manual) Lymphocytes % (Manual) Seg Neutrophils # Man Monocytes # (Manual) Basophils # (Manual) PT INR POC ABG pH POC ABG pCO2 POC ABG pO2 VBG pH Sodium Potassium 5.1 H D Chloride Carbon Dioxide BUN 44 H Creatinine 4.3 H Glucose 117 H POC Glucose 128 H 110 H Lactic Acid Calcium 7.0 L Phosphorus Magnesium Total Creatine Kinase CK-MB (CK-2) Troponin T C-Reactive Protein Total Protein Albumin Triglycerides HDL Cholesterol TSH Urine WBC (Auto) 11/13/17 11/13/17 11/13/17 19:59 20:22 21:05 WBC RBC Hct MCV MCH MCHC RDW Plt Count Seg Neuts % (Manual) Lymphocytes % (Manual) Seg Neutrophils # Man Monocytes # (Manual) Basophils # (Manual) PT INR POC ABG pH POC ABG pCO2 POC ABG pO2 VBG pH Sodium Potassium Chloride Carbon Dioxide BUN 48 H Creatinine 4.5 H Glucose 181 H POC Glucose 180 H 134 H Lactic Acid Calcium 7.0 L Phosphorus Magnesium Total Creatine Kinase CK-MB (CK-2) Troponin T C-Reactive Protein Total Protein Albumin Triglycerides HDL Cholesterol TSH Urine WBC (Auto) 11/13/17 11/13/17 11/14/17 22:04 23:08 00:08 WBC RBC Hct MCV MCH MCHC RDW Plt Count Seg Neuts % (Manual) Lymphocytes % (Manual) Seg Neutrophils # Man Monocytes # (Manual) Basophils # (Manual) PT INR POC ABG pH POC ABG pCO2 POC ABG pO2 VBG pH Sodium Potassium Chloride Carbon Dioxide BUN Creatinine Glucose POC Glucose 135 H 143 H 121 H Lactic Acid Calcium Phosphorus Magnesium Total Creatine Kinase CK-MB (CK-2) Troponin T C-Reactive Protein Total Protein Albumin Triglycerides HDL Cholesterol TSH Urine WBC (Auto) 11/14/17 11/14/17 11/14/17 00:37 01:07 01:27 WBC RBC Hct MCV MCH MCHC RDW Plt Count Seg Neuts % (Manual) Lymphocytes % (Manual) Seg Neutrophils # Man Monocytes # (Manual) Basophils # (Manual) PT INR POC ABG pH 7.308 L POC ABG pCO2 POC ABG pO2 161 H VBG pH Sodium Potassium 5.2 H Chloride Carbon Dioxide BUN 49 H Creatinine 4.6 H Glucose 123 H POC Glucose 106 H Lactic Acid Calcium 6.5 L Phosphorus Magnesium Total Creatine Kinase CK-MB (CK-2) Troponin T C-Reactive Protein Total Protein Albumin Triglycerides HDL Cholesterol TSH Urine WBC (Auto) 11/14/17 11/14/17 11/14/17 02:20 03:09 04:00 WBC RBC Hct MCV MCH MCHC RDW Plt Count Seg Neuts % (Manual) Lymphocytes % (Manual) Seg Neutrophils # Man Monocytes # (Manual) Basophils # (Manual) PT INR POC ABG pH POC ABG pCO2 POC ABG pO2 VBG pH Sodium Potassium 5.5 H Chloride Carbon Dioxide BUN 51 H Creatinine 4.5 H Glucose 181 H POC Glucose 130 H 126 H Lactic Acid Calcium 6.6 L Phosphorus Magnesium Total Creatine Kinase CK-MB (CK-2) Troponin T C-Reactive Protein Total Protein Albumin Triglycerides HDL Cholesterol TSH Urine WBC (Auto) 11/14/17 11/14/17 11/14/17 04:00 04:36 06:29 WBC 31.6 H RBC 3.39 L Hct MCV MCH MCHC RDW 15.3 H Plt Count 87 L Seg Neuts % (Manual) Lymphocytes % (Manual) Seg Neutrophils # Man Monocytes # (Manual) Basophils # (Manual) PT INR POC ABG pH POC ABG pCO2 POC ABG pO2 VBG pH Sodium Potassium Chloride Carbon Dioxide BUN Creatinine Glucose POC Glucose 135 H 166 H Lactic Acid Calcium Phosphorus Magnesium Total Creatine Kinase CK-MB (CK-2) Troponin T C-Reactive Protein Total Protein Albumin Triglycerides HDL Cholesterol TSH Urine WBC (Auto) 11/14/17 11/14/17 11/14/17 12:02 12:45 12:45 WBC RBC Hct MCV MCH MCHC RDW Plt Count Seg Neuts % (Manual) Lymphocytes % (Manual) Seg Neutrophils # Man Monocytes # (Manual) Basophils # (Manual) PT 20.8 H INR 1.68 H POC ABG pH POC ABG pCO2 POC ABG pO2 VBG pH Sodium Potassium 5.5 H Chloride Carbon Dioxide 19 L BUN 58 H Creatinine 4.8 H Glucose 313 H POC Glucose 222 H Lactic Acid Calcium 6.4 L Phosphorus Magnesium Total Creatine Kinase CK-MB (CK-2) Troponin T C-Reactive Protein Total Protein Albumin Triglycerides HDL Cholesterol TSH Urine WBC (Auto) 11/14/17 11/14/17 11/14/17 16:34 18:12 23:15 WBC RBC Hct MCV MCH MCHC RDW Plt Count Seg Neuts % (Manual) Lymphocytes % (Manual) Seg Neutrophils # Man Monocytes # (Manual) Basophils # (Manual) PT INR POC ABG pH POC ABG pCO2 POC ABG pO2 VBG pH Sodium Potassium Chloride Carbon Dioxide 17 L BUN 63 H Creatinine 5.1 H Glucose 368 H POC Glucose 381 H 434 H Lactic Acid Calcium 6.4 L Phosphorus Magnesium Total Creatine Kinase CK-MB (CK-2) Troponin T C-Reactive Protein Total Protein Albumin Triglycerides HDL Cholesterol TSH Urine WBC (Auto) 11/14/17 11/15/17 11/15/17 Unknown 00:51 04:23 WBC RBC Hct MCV MCH MCHC RDW Plt Count Seg Neuts % (Manual) Lymphocytes % (Manual) Seg Neutrophils # Man Monocytes # (Manual) Basophils # (Manual) PT INR POC ABG pH 7.287 L POC ABG pCO2 POC ABG pO2 141 H VBG pH Sodium Potassium Chloride Carbon Dioxide BUN Creatinine Glucose POC Glucose 415 H Lactic Acid 2.80 H* Calcium Phosphorus Magnesium Total Creatine Kinase CK-MB (CK-2) Troponin T C-Reactive Protein Total Protein Albumin Triglycerides HDL Cholesterol TSH Urine WBC (Auto) 11/15/17 11/15/17 05:00 05:43 WBC RBC Hct MCV MCH MCHC RDW Plt Count Seg Neuts % (Manual) Lymphocytes % (Manual) Seg Neutrophils # Man Monocytes # (Manual) Basophils # (Manual) PT INR POC ABG pH POC ABG pCO2 POC ABG pO2 VBG pH Sodium Potassium Chloride Carbon Dioxide 18 L BUN 73 H Creatinine 5.3 H Glucose 461 H POC Glucose 416 H Lactic Acid Calcium 6.7 L Phosphorus Magnesium Total Creatine Kinase CK-MB (CK-2) Troponin T C-Reactive Protein Total Protein Albumin Triglycerides HDL Cholesterol TSH Urine WBC (Auto) Allied health notes reviewed: RT
--- NOTE | 2017-11-15 08:45 | Progress Note ---
Assessment and Plan 1. Acute kidney injury: LOC in the setting of volume depletion and DKA. Renal function continue to decline and associated with anuria and hyperkalemia. Patient require hemodialysis. Discussed with her mother over the phone and explained the indications, risks and benefits of hemodialysis. She verbalizes understanding and consented to proceed with hemodialysis. Vascular consulted for placement of temporary hemodialysis catheter. Continue IV fluids. 2. Electrolytes: Hyperkalemia, K level is better today. Severe metabolic acidosis, improving. Hypernatremia, improved. Replete Calcium. 3. Septic shock: On Levophed. 4. DKA. 5. Respiratory failure: On vent. 6. S/p Cardiac arrest. 7. Encephalopathy. Prognosis is guarded. Subjective Date of service: 11/15/17 Principal diagnosis: s/p cardiac arrest Interval history: Patient was seen and examined at the bedside. Objective - Vital Signs Vital signs: Vital Signs - 12hr 11/14/17 11/14/17 11/14/17 21:00 21:15 21:30 Temperature Pulse Rate 100 H 100 H 100 H Respiratory 28 H 28 H 28 H Rate Blood Pressure 111/61 107/61 114/67 O2 Sat by Pulse 98 98 98 Oximetry 11/14/17 11/14/17 11/14/17 21:45 22:00 22:15 Temperature Pulse Rate 99 H 99 H 99 H Respiratory 28 H 28 H 28 H Rate Blood Pressure 117/69 118/70 119/75 O2 Sat by Pulse 98 98 98 Oximetry 11/14/17 11/14/17 11/14/17 22:30 22:45 22:52 Temperature Pulse Rate 99 H 100 H 100 H Respiratory 28 H 28 H Rate Blood Pressure 120/75 113/62 O2 Sat by Pulse 98 99 Oximetry 11/14/17 11/14/17 11/14/17 23:00 23:15 23:30 Temperature Pulse Rate 100 H 101 H 101 H Respiratory 28 H 28 H 28 H Rate Blood Pressure 106/58 102/52 102/57 O2 Sat by Pulse 98 99 98 Oximetry 11/14/17 11/14/17 11/14/17 23:43 23:45 23:48 Temperature Pulse Rate 99 H 100 H 100 H Respiratory 28 H 28 H Rate Blood Pressure 102/57 107/62 102/57 O2 Sat by Pulse 100 98 100 Oximetry 11/15/17 11/15/17 11/15/17 00:00 00:06 00:15 Temperature 99.8 F H Pulse Rate 100 H 100 H 100 H Respiratory 28 H 28 H 28 H Rate Blood Pressure 106/60 106/60 108/60 O2 Sat by Pulse 98 99 98 Oximetry 11/15/17 11/15/17 11/15/17 00:30 00:45 01:00 Temperature Pulse Rate 100 H 100 H 101 H Respiratory 28 H 28 H 28 H Rate Blood Pressure 105/60 106/59 104/58 O2 Sat by Pulse 98 98 98 Oximetry 11/15/17 11/15/17 11/15/17 01:15 01:30 01:45 Temperature Pulse Rate 101 H 101 H 101 H Respiratory 28 H 28 H 28 H Rate Blood Pressure 107/58 107/61 107/62 O2 Sat by Pulse 98 98 98 Oximetry 11/15/17 11/15/17 11/15/17 02:00 02:16 02:30 Temperature Pulse Rate 101 H 101 H 99 H Respiratory 28 H 28 H 28 H Rate Blood Pressure 107/62 110/63 107/62 O2 Sat by Pulse 99 99 100 Oximetry 11/15/17 11/15/17 11/15/17 02:46 03:00 03:15 Temperature Pulse Rate 99 H 98 H Respiratory 28 H 28 H Rate Blood Pressure 121/72 O2 Sat by Pulse 99 95 98 Oximetry 11/15/17 11/15/17 11/15/17 03:30 03:45 04:00 Temperature 98.6 F Pulse Rate 97 H 95 H 95 H Respiratory 28 H 28 H 27 H Rate Blood Pressure 122/80 127/81 127/84 O2 Sat by Pulse 97 97 98 Oximetry 11/15/17 11/15/17 11/15/17 04:15 04:22 04:30 Temperature Pulse Rate 93 H 93 H 95 H Respiratory 28 H 28 H Rate Blood Pressure 127/86 127/86 130/82 O2 Sat by Pulse 97 100 97 Oximetry 11/15/17 11/15/17 11/15/17 04:45 05:00 05:15 Temperature Pulse Rate 95 H 95 H 95 H Respiratory 28 H 28 H 28 H Rate Blood Pressure 131/89 119/80 112/66 O2 Sat by Pulse 96 96 96 Oximetry 11/15/17 11/15/17 11/15/17 05:30 05:45 06:00 Temperature Pulse Rate 96 H 95 H 95 H Respiratory 28 H 28 H 28 H Rate Blood Pressure 127/87 126/87 134/89 O2 Sat by Pulse 96 97 97 Oximetry - General Appearance General appearance: well-developed, appears stated age, sedated on ventilator ( FiO2 50%), intubated EENT: ATNC Neck: supple Respiratory: Present: Clear to Ascultation Cardiology: tachycardia, S1S2, no murmurs Gastrointestinal: normoactive bowel sounds, no tenderness Integumentary: no rash, warm and dry Neurologic: obtunded Musculoskeletal: other (trace edema noted) - Lab 11/15/17 10:00 11/15/17 10:00 Most recent lab results Calcium 6.7 mg/dL (8.4-10.2) L 11/15/17 05:00 Phosphorus 4.90 mg/dL (2.5-4.5) H 11/13/17 06:00 Magnesium 1.20 mg/dL (1.7-2.3) L 11/13/17 06:00
[2017-11-15] MEDS ORDERED: NACL 0.9% 100 ML IV PRN (08:53)
[2017-11-15] MEDS: LEVOPHED 8 MG in NACL 0.9% 250ML 242 ML IV SCH (08:54)
[2017-11-15] MEDS ORDERED: CALCIUM GLUCONATE 2,000 MG in NACL 0.9% 100 ML IV ONE (08:55)
--- NOTE | 2017-11-15 09:34 | Progress Note ---
Assessment and Plan Cont supportive measures and wean vent and vasopressors as tolerated. Overall guarded prognosis. The patient has been seen in conjunction with Dr. Anmol Zaragoza who agrees with the assessment and plan of care. - Patient Problems (1) Cardiopulmonary arrest with successful resuscitation Current Visit: Yes Status: Acute (2) Cardiac arrest with ventricular fibrillation Current Visit: Yes Status: Acute (3) Acute respiratory failure requiring reintubation Current Visit: Yes Status: Acute (4) Pneumonia Current Visit: Yes Status: Acute (5) Septic shock Current Visit: Yes Status: Acute (6) DKA (diabetic ketoacidoses) Current Visit: Yes Status: Acute (7) Metabolic acidosis Current Visit: Yes Status: Acute (8) Altered mental status Current Visit: Yes Status: Acute (9) Acute renal failure Current Visit: Yes Status: Acute (10) Hyperkalemia Current Visit: Yes Status: Resolved (11) Elevated TSH Current Visit: Yes Status: Acute Subjective Date of service: 11/15/17 Principal diagnosis: s/p cardiac arrest Interval history: pt remains intubated, nonresponsive. in SR on tele with no arrhythmias noted overnight. requiring vasopressor support. no family at bedside. Objective Last Vital Signs Temp 99.2 F 11/15/17 08:00 Pulse 95 H 11/15/17 06:00 Resp 28 H 11/15/17 06:00 BP 134/89 11/15/17 06:00 Pulse Ox 97 11/15/17 06:00 - Physical Examination General: Other (intubated, nonresponsive) HEENT: Positive: Other (dilated 5 mm) Neck: Positive: neck supple, trachea midline Cardiac: Positive: Reg Rate and Rhythm, S1/S2 Neuro: Positive: Grossly Intact, Other (intubated, nonresponsive) Abdomen: Positive: Soft Extremities: Absent: edema - Labs and Meds Coagulation 11/14/17 Range/Units 12:45 PT 20.8 H (12.2-14.9) Sec. INR 1.68 H (0.87-1.13) Comprehensive Metabolic Panel 11/14/17 11/14/17 11/15/17 Range/Units 12:45 16:34 05:00 Sodium 145 145 143 (137-145) mmol/L Potassium 5.5 H 4.3 D 3.8 (3.6-5.0) mmol/L Chloride 105.1 104.6 102.7 (98-107) mmol/L Carbon Dioxide 19 L 17 L 18 L (22-30) mmol/L BUN 58 H 63 H 73 H (7-17) mg/dL Creatinine 4.8 H 5.1 H 5.3 H (0.7-1.2) mg/dL Glucose 313 H 368 H 461 H (65-100) mg/dL Calcium 6.4 L 6.4 L 6.7 L (8.4-10.2) mg/dL - Imaging and Cardiology EKG: report reviewed, image reviewed Echo: report reviewed (11/11/2017 normal lv function, no signficant regurgitations) - Telemetry EKG Rhythm: Sinus Rhythm - EKG Sinus rhythms and dysrhythmias: sinus tachycardia - Allied health notes Allied health notes reviewed:
--- NOTE | 2017-11-15 09:44 | Progress Note ---
Assessment and Plan Assessment: 1) Severe Sepsis with septic shock/hypolemic shock: improving. Only on levophed. Still leukocytosis. Fever resolved for 24h. Etiology most likely due to pneumonia +/- right submandibular abscess +/- DKA/N/V. -blood cx neg -TTE neg 2) Bilateral pneumonia - likely aspiration pneumonia -tracheal asp +MSSA/Strep group B 3) DKA 4) Acute encephalopathy 5) Acute resp failure 6) Hyponatremia 7) LOC 8) S/P VT cardiac arrest 9) Right submandibular abscess ? Actinomycosis of the Jaw? 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 Nat Reeves MD Infectious Diseases Specialist [facility] ([facility]) M [phone] O [phone] Subjective Date of service: 11/15/17 Principal diagnosis: s/p cardiac arrest Interval history: Remains on the vent, no fever for 48h. She is on levophed at 13 mcg--> MAP 106. Microbiology: Blood cultures: 11/10 neg 11/11 neg Urine cultures: 11/10 neg Respiratory cultures: 11/11 MSSA and Beta hem Strep B Wound cultures: 11/13 ngt Current Antimicrobials: Clinda 11/12 cefazolin 11/14 Prior Antimicrobials: Vancomycin Zosyn Penicillin Objective - Exam Narrative Exam: General appearance: sedated on the vent FiO2 50% p12 Eyes: anicteric sclerae, moist conjunctivae; no lid-lag; PERRLA HENT: Atraumatic; oropharynx +ETT +NGT Neck: Trachea midline;+right submandibular wound with minimal induration and no drainage Lungs: CTA, with normal respiratory effort and no intercostal retractions CV:tachy Abdomen: Soft, non-tender Extremities: kathleen legs peripheral edema Skin: Normal temperature, turgor and texture; no rash, ulcers or subcutaneous nodules Psych: sedated. Neuro: sedated Lines: right SC TLC - Constitutional Vitals: Vital Signs Temp Pulse Resp BP Pulse Ox 99.2 F 95 H 28 H 134/89 97 11/15/17 08:00 11/15/17 06:00 11/15/17 06:00 11/15/17 06:00 11/15/17 06:00 Temperature -Last 24 Hours Temperature [Pre-Procedure] 99.1 F Temperature 99.2 F Temperature 98.6 F Temperature 99.8 F Temperature 98.4 F Temperature 98.8 F Temperature 99.1 F - Labs CBC & Chem 7: 11/14/17 04:00 11/15/17 05:00 Labs: Abnormal lab results 11/13/17 11/13/17 11/14/17 Range/Units 19:08 23:08 04:36 PT (12.2-14.9) Sec. INR (0.87-1.13) POC ABG pH (7.35-7.45) POC ABG pO2 (80-105) Potassium (3.6-5.0) mmol/L Carbon Dioxide (22-30) mmol/L BUN (7-17) mg/dL Creatinine (0.7-1.2) mg/dL Glucose (65-100) mg/dL POC Glucose 110 H 143 H 135 H (70-105) Lactic Acid (0.7-2.0) mmol/L Calcium (8.4-10.2) mg/dL 11/14/17 11/14/17 11/14/17 Range/Units 06:29 12:02 12:45 PT (12.2-14.9) Sec. INR (0.87-1.13) POC ABG pH (7.35-7.45) POC ABG pO2 (80-105) Potassium 5.5 H (3.6-5.0) mmol/L Carbon Dioxide 19 L (22-30) mmol/L BUN 58 H (7-17) mg/dL Creatinine 4.8 H (0.7-1.2) mg/dL Glucose 313 H (65-100) mg/dL POC Glucose 166 H 222 H (70-105) Lactic Acid (0.7-2.0) mmol/L Calcium 6.4 L (8.4-10.2) mg/dL 11/14/17 11/14/17 11/14/17 Range/Units 12:45 16:34 18:12 PT 20.8 H (12.2-14.9) Sec. INR 1.68 H (0.87-1.13) POC ABG pH (7.35-7.45) POC ABG pO2 (80-105) Potassium (3.6-5.0) mmol/L Carbon Dioxide 17 L (22-30) mmol/L BUN 63 H (7-17) mg/dL Creatinine 5.1 H (0.7-1.2) mg/dL Glucose 368 H (65-100) mg/dL POC Glucose 381 H (70-105) Lactic Acid (0.7-2.0) mmol/L Calcium 6.4 L (8.4-10.2) mg/dL 11/14/1718 11/15/17 Range/Units 23:15 Unknown 00:51 PT (12.2-14.9) Sec. INR (0.87-1.13) POC ABG pH (7.35-7.45) POC ABG pO2 (80-105) Potassium (3.6-5.0) mmol/L Carbon Dioxide (22-30) mmol/L BUN (7-17) mg/dL Creatinine (0.7-1.2) mg/dL Glucose (65-100) mg/dL POC Glucose 434 H 415 H (70-105) Lactic Acid 2.80 H* (0.7-2.0) mmol/L Calcium (8.4-10.2) mg/dL 11/15/17 11/15/17 11/15/17 Range/Units 04:23 05:00 05:43 PT (12.2-14.9) Sec. INR (0.87-1.13) POC ABG pH 7.287 L (7.35-7.45) POC ABG pO2 141 H (80-105) Potassium (3.6-5.0) mmol/L Carbon Dioxide 18 L (22-30) mmol/L BUN 73 H (7-17) mg/dL Creatinine 5.3 H (0.7-1.2) mg/dL Glucose 461 H (65-100) mg/dL POC Glucose 416 H (70-105) Lactic Acid (0.7-2.0) mmol/L Calcium 6.7 L (8.4-10.2) mg/dL
[2017-11-15] MEDS: LANTUS SUB-Q SCH (10:09)
[2017-11-15] MEDS: PEPCID IV SCH (10:09)
[2017-11-15] MEDS: SODIUM CHLORIDE FLUSH SYRINGE 10 ML IV SCH (10:10)
[2017-11-15] MEDS: ceFAZolin 2 GM in NACL 0.9% 100 ML IV SCH (10:11)
[2017-11-15] MEDS: SODIUM CHLORIDE FLUSH SYRINGE 10 ML IV PRN ×4 (10:12→18:25)
[2017-11-15 10:45] LABS: Hematocrit 21.7 % (30.3-42.9); Hemoglobin 7.2 gm/dl (10.1-14.3); Mean Corpuscular HGB Conc 33 % (30-34); Mean Corpuscular Hemoglobin 32 pg (28-32); Mean Corpuscular Volume 97 fl (79-97); Red Blood Count 2.23 M/mm3 (3.65-5.03); Red Cell Distribution Width 15.2 % (13.2-15.2)
[2017-11-15 10:47] LABS: Platelet Count 64 K/mm3 (140-440)
[2017-11-15 10:55] LABS: Calcium 6.9 mg/dL (8.4-10.2)
[2017-11-15 12:46] LABS: Band Neutrophils # (Manual) 1.6 K/mm3; Basophils % (Manual) 0 % (0.0-1.8); Eosinophils % (Manual) 0 % (0.0-4.3); Total Cells Counted 100
[2017-11-15 12:47] LABS: Platelet Estimate Consistent w Auto; RBC Morphology Normal
--- NOTE | 2017-11-15 17:32 | Progress Note ---
Assessment and Plan Assessment and plan: Day 5 which is my first day caring for patient. Ms. Melendez is a 37 yo woman with history of DM type 2, HTN, Hypothyroidism, Alcohol abuse, Tobacco dependecncy and Medical noncompliance per chart who presented to the ED via EMS after she was found by a family member at home to be extremely lethargic. She was brought to the ED for evaluation and was subsequently diagnosed with DKA, bilateral PNA, septic shock, ARF and hyperkalemia. Upon transfer from ED to CCU, she became unresponsive and developed cardiopulmonary arrest. ACLS protocol was initiated. At one point, she was noted to be in VF and was shocked twice and given several rounds of epinephrine and was initiated on amio gtt. She was intubated and remains intubated. She subsequently had 3 more cardiac arrest/PEA on the same day. Then she was placed on 4 vasopressors to maintain bp/vitals. s/p cardiorespiratory arrest - She was intubated and ACLS protocol was initiated - s/p cardiac arrest X4, 1st time with [facility],then followed by PEA X3 - likely from Severe DKA and severe septic shock - consulted cardiology, s/p amioderone drip - preserved EF on 2d echo, Acute respiratory failure with severe hypoxia - likely b/l PNA with ARDS due to severe DKA and sepsis - scheduled steroid, nebs, on vent with positive pressure ventilation - added paralytics to improve oxygenation - CC following, Bronchoscopy Severe hypothyroidism - TSH >15 on presentation - started on IV Synthroid DKA - Continue insulin drip, BMP every 4 hours - cont on DKA protocol, start on TF severe Septic shock with bilateral pneumonia - Continue to trend lactic acid, continue vancomycin and Zosyn for now, added clindamycin - Patient currently on levophed, d/jessica dopamin, epinephrene and dopamin - Critical care and ID has been consulted Severe metabolic acidosis - due to DKA, cont insulin drip and BMP every 4 hours Acute renal failure, ATN, poa - Continue IV fluid, nephrology consulted - declining renal function and very low urine output Hypernatremia, - renal is following and managing Bilateral pneumonia, poa - Continue antibiotic, Staph on sputum culture Hyperkalemia, status post Kayexalate Hypokalemia, will cont to replete Acute metabolic Encephalopathy, poa - cont frequent neuro check - ordered CT head but clinically unstable to do DVT prophylaxis, SCD Full code, prognosis guarded Levophed at 13 mcg very poor urine output, Hemodialysis is planned Tube feeding for nutrition right subclavian TLC present Adame present SCD on restraints renewed CCT 31 minutes History Interval history: Patient was seen and examined. Follow-up on current diagnosis of respiratory failure, pt still intubated and sedated. Imaging, nursing note, chart, labs and old chart reviewed. Discussed with nursing. Hospitalist Physical - Physical exam Narrative exam: GENERAL: well-developed WF, ill appearing, intubated and sedated HEENT: NCAT, ett in place, ngt in place NECK: Supple. Trachea midline CHEST/LUNGS: good air entry HEART/CARDIOVASCULAR: tachycardic. S1 and S2 positive. ABDOMEN: Abdomen is soft, nontender. +pbs SKIN: There is no rash. Warm and dry. NEURO: does not Follow command. unresponsive MUSCULOSKELETAL: No joint effusion or tenderness. EXTRIMITY: No edema, no cyanosis or clubbing. PSYCH: sedated - Constitutional Vitals: Temp Pulse Resp BP Pulse Ox 99.2 F 89 28 H 102/64 97 11/15/17 08:00 11/15/17 13:45 11/15/17 13:30 11/15/17 13:45 11/15/17 13:45 General appearance: Present: other (intubated, nonresponsive) Results - Labs CBC & Chem 7: 11/16/17 04:40 11/16/17 04:40 Labs: Laboratory Last Values WBC 12.0 K/mm3 (4.5-11.0) H 11/15/17 10:00 RBC 2.23 M/mm3 (3.65-5.03) L 11/15/17 10:00 Hgb 7.2 gm/dl (10.1-14.3) L D 11/15/17 10:00 Hct 21.7 % (30.3-42.9) L D 11/15/17 10:00 MCV 97 fl (79-97) 11/15/17 10:00 MCH 32 pg (28-32) 11/15/17 10:00 MCHC 33 % (30-34) 11/15/17 10:00 RDW 15.2 % (13.2-15.2) 11/15/17 10:00 Plt Count 64 K/mm3 (140-440) L 11/15/17 10:00 Add Manual Diff Complete 11/15/17 10:00 Total Counted 100 11/15/17 10:00 Seg Neutrophils % Per Diem Registered Nurse 11/15/17 10:00 Seg Neuts % (Manual) 79.0 % (40.0-70.0) H 11/15/17 10:00 Band Neutrophils % 13.0 % 11/15/17 10:00 Lymphocytes % (Manual) 4.0 % (13.4-35.0) L 11/15/17 10:00 Reactive Lymphs % (Man) 0 % 11/15/17 10:00 Monocytes % (Manual) 4.0 % (0.0-7.3) 11/15/17 10:00 Eosinophils % (Manual) 0 % (0.0-4.3) 11/15/17 10:00 Basophils % (Manual) 0 % (0.0-1.8) 11/15/17 10:00 Metamyelocytes % 0 % 11/15/17 10:00 Myelocytes % 0 % 11/15/17 10:00 Promyelocytes % 0 % 11/15/17 10:00 Blast Cells % 0 % 11/15/17 10:00 Nucleated RBC % Not Reportable 11/15/17 10:00 Seg Neutrophils # Man 9.5 K/mm3 (1.8-7.7) H 11/15/17 10:00 Band Neutrophils # 1.6 K/mm3 11/15/17 10:00 Lymphocytes # (Manual) 0.5 K/mm3 (1.2-5.4) L 11/15/17 10:00 Abs React Lymphs (Man) 0.0 K/mm3 11/15/17 10:00 Monocytes # (Manual) 0.5 K/mm3 (0.0-0.8) 11/15/17 10:00 Eosinophils # (Manual) 0.0 K/mm3 (0.0-0.4) 11/15/17 10:00 Basophils # (Manual) 0.0 K/mm3 (0.0-0.1) 11/15/17 10:00 Metamyelocytes # 0.0 K/mm3 11/15/17 10:00 Myelocytes # 0.0 K/mm3 11/15/17 10:00 Promyelocytes # 0.0 K/mm3 11/15/17 10:00 Blast Cells # 0.0 K/mm3 11/15/17 10:00 WBC Morphology Not Reportable 11/15/17 10:00 Hypersegmented Neuts Not Reportable 11/15/17 10:00 Hyposegmented Neuts Not Reportable 11/15/17 10:00 Hypogranular Neuts Not Reportable 11/15/17 10:00 Smudge Cells Not Reportable 11/15/17 10:00 Toxic Granulation Not Reportable 11/15/17 10:00 Toxic Vacuolation Not Reportable 11/15/17 10:00 Dohle Bodies Not Reportable 11/15/17 10:00 Pelger-Huet Anomaly Not Reportable 11/15/17 10:00 Cassandra Rods Not Reportable 11/15/17 10:00 Platelet Estimate Consistent w auto 11/15/17 10:00 Clumped Platelets Not Reportable 11/15/17 10:00 Plt Clumps, EDTA Not Reportable 11/15/17 10:00 Large Platelets Not Reportable 11/15/17 10:00 Giant Platelets Not Reportable 11/15/17 10:00 Platelet Satelliting Not Reportable 11/15/17 10:00 Plt Morphology Comment Not Reportable 11/15/17 10:00 RBC Morphology Normal 11/15/17 10:00 Dimorphic RBCs Not Reportable 11/15/17 10:00 Polychromasia Not Reportable 11/15/17 10:00 Hypochromasia Not Reportable 11/15/17 10:00 Poikilocytosis Not Reportable 11/15/17 10:00 Anisocytosis Not Reportable 11/15/17 10:00 Microcytosis Not Reportable 11/15/17 10:00 Macrocytosis Not Reportable 11/15/17 10:00 Spherocytes Not Reportable 11/15/17 10:00 Pappenheimer Bodies Not Reportable 11/15/17 10:00 Sickle Cells Not Reportable 11/15/17 10:00 Target Cells Not Reportable 11/15/17 10:00 Tear Drop Cells Not Reportable 11/15/17 10:00 Ovalocytes Not Reportable 11/15/17 10:00 Helmet Cells Not Reportable 11/15/17 10:00 [place] Bodies Not Reportable 11/15/17 10:00 [place] Rings Not Reportable 11/15/17 10:00 [place] Cells Not Reportable 11/15/17 10:00 Bite Cells Not Reportable 11/15/17 10:00 Crenated Cell Not Reportable 11/15/17 10:00 Elliptocytes Not Reportable 11/15/17 10:00 Acanthocytes (Spur) Not Reportable 11/15/17 10:00 Rouleaux Not Reportable 11/15/17 10:00 Hemoglobin C Crystals Not Reportable 11/15/17 10:00 Schistocytes Not Reportable 11/15/17 10:00 Malaria parasites Not Reportable 11/15/17 10:00 Munir Bodies Not Reportable 11/15/17 10:00 Hem Pathologist Commnt No 11/15/17 10:00 PT 20.8 Sec. (12.2-14.9) H 11/14/17 12:45 INR 1.68 (0.87-1.13) H 11/14/17 12:45 POC ABG pH 7.287 (7.35-7.45) L 11/15/17 04:23 POC ABG pCO2 41.8 (35-45) 11/15/17 04:23 POC ABG pO2 141 (80-105) H 11/15/17 04:23 POC ABG HCO3 20.0 11/15/17 04:23 POC ABG Total CO2 21 11/15/17 04:23 POC ABG O2 Sat 99 11/15/17 04:23 POC ABG Base Excess -7 11/15/17 04:23 VBG pH 6.881 (7.320-7.420) L* 11/11/17 00:01 FiO2 60 % 11/15/17 04:23 Sodium 142 mmol/L (137-145) 11/15/17 10:00 Potassium 3.7 mmol/L (3.6-5.0) 11/15/17 10:00 Chloride 101.9 mmol/L (98-107) 11/15/17 10:00 Carbon Dioxide 21 mmol/L (22-30) L 11/15/17 10:00 Anion Gap 23 mmol/L 11/15/17 10:00 BUN 76 mg/dL (7-17) H 11/15/17 10:00 Creatinine 5.7 mg/dL (0.7-1.2) H 11/15/17 10:00 Estimated GFR 8 ml/min 11/15/17 10:00 BUN/Creatinine Ratio 13 % 11/15/17 10:00 Glucose 386 mg/dL (65-100) H 11/15/17 10:00 POC Glucose 374 (70-105) H 11/15/17 12:24 Lactic Acid 2.80 mmol/L (0.7-2.0) H* 11/14/17 Unknown Calcium 6.9 mg/dL (8.4-10.2) L 11/15/17 10:00 Phosphorus 4.90 mg/dL (2.5-4.5) H 11/13/17 06:00 Magnesium 1.20 mg/dL (1.7-2.3) L 11/13/17 06:00 Total Bilirubin 0.20 mg/dL (0.1-1.2) 11/10/17 20:18 AST 38 units/L (5-40) 11/10/17 20:18 ALT 14 units/L (7-56) 11/10/17 20:18 Alkaline Phosphatase 115 units/L (35-129) 11/10/17 20:18 Total Creatine Kinase 1041 units/L (30-135) H 11/11/17 10:45 CK-MB (CK-2) 31.9 ng/mL (0.0-4.0) H 11/11/17 10:45 CK-MB (CK-2) Rel Index 3.0 (0-4) 11/11/17 10:45 Troponin T 0.041 ng/mL (0.00-0.029) H D 11/11/17 10:45 C-Reactive Protein 7.40 mg/dL (0.00-1.30) H 11/11/17 12:40 Total Protein 6.2 g/dL (6.3-8.2) L 11/10/17 20:18 Albumin 3.5 g/dL (3.9-5) L 11/10/17 20:18 Albumin/Globulin Ratio 1.3 % 11/10/17 20:18 Triglycerides 510 mg/dL (2-149) H 11/11/17 10:45 Cholesterol 170 mg/dL (50-199) 11/11/17 10:45 LDL Cholesterol Direct TNR 11/11/17 10:45 HDL Cholesterol 26 mg/dL (40-59) L 11/11/17 10:45 Cholesterol/HDL Ratio 6.53 % 11/11/17 10:45 TSH 15.990 mlU/mL (0.270-4.200) H 11/10/17 23:15 Urine Color Yellow (Yellow) 11/10/17 Unknown Urine Turbidity Clear (Clear) 11/10/17 Unknown Urine pH 5.0 (5.0-7.0) 11/10/17 Unknown Ur Specific [place] 1.016 (1.003-1.030) 11/10/17 Unknown Urine Protein 30 mg/dl mg/dL (Negative) 11/10/17 Unknown Urine Glucose (UA) >=500 mg/dL (Negative) 11/10/17 Unknown Urine Ketones 80 mg/dL (Negative) 11/10/17 Unknown Urine Blood Mod (Negative) 11/10/17 Unknown Urine Nitrite Neg (Negative) 11/10/17 Unknown Urine Bilirubin Neg (Negative) 11/10/17 Unknown Urine Urobilinogen < 2.0 mg/dL (<2.0) 11/10/17 Unknown Ur Leukocyte Esterase Neg (Negative) 11/10/17 Unknown Urine WBC (Auto) 8.0 /HPF (0.0-6.0) H 11/10/17 Unknown Urine RBC (Auto) 1.0 /HPF (0.0-6.0) 11/10/17 Unknown U Epithel Cells (Auto) < 1.0 /HPF (0-13.0) 11/10/17 Unknown Urine Bacteria (Auto) 1+ /HPF (Negative) 11/10/17 Unknown Urine Mucus Few /HPF 11/10/17 Unknown Random Vancomycin 28.6 ug/mL (0-40.0) 11/14/17 05:25 Urine Opiates Screen Presumptive negative 11/10/17 Unknown Urine Methadone Screen Presumptive negative 11/10/17 Unknown Ur Barbiturates Screen Presumptive negative 11/10/17 Unknown Ur Phencyclidine Scrn Presumptive negative 11/10/17 Unknown Ur Amphetamines Screen Presumptive negative 11/10/17 Unknown U Benzodiazepines Scrn Presumptive negative 11/10/17 Unknown Urine Cocaine Screen Presumptive negative 11/10/17 Unknown U Marijuana (THC) Screen Presumptive negative 11/10/17 Unknown Drugs of Abuse Note Disclamer 11/10/17 Unknown Plasma/Serum Alcohol < 0.01 % (0-0.07) 11/14/17 12:45
--- NOTE | 2017-11-15 17:33 | Cat Scan Report ---
FINAL REPORT EXAM: CT HEAD/BRAIN WO CON HISTORY: anoxic brain injury TECHNIQUE: Standard unenhanced CT of the head at 5.0 millimeter axial increments. PRIORS: CT head 11/11/2017 FINDINGS: A nasogastric tube is present in the right nasal cavity. There is complete loss of the montoya/white matter junction throughout the cerebrum and cerebellum. Findings are consistent with severe diffuse anoxic injury. The ventricular system is small in size consistent with generalized brain edema. There has also been loss of the cisterns at the base of the brain. No evidence for acute skull fracture is seen. No abnormality in the overlying scalp soft tissues is seen. Visualized paranasal sinuses demonstrates mucosal thickening in the right ethmoid and right maxillary sinuses. There is also mucosal thickening air-fluid levels in the mastoid air cells bilaterally suggesting mastoiditis. IMPRESSION: Findings consistent with severe diffuse anoxic brain injury involving the cerebrum and cerebellum.
--- NOTE | 2017-11-15 17:46 | Cat Scan Report ---
FINAL REPORT EXAM: CT FACIAL BONES WO CON HISTORY: r/o abscess TECHNIQUE: Standard unenhanced CT facial bones at 2.5 mm axial increments with coronal and sagittal reconstruction PRIORS: None. FINDINGS: Nasogastric tube is in place within the right nasal cavity. Endotracheal tube is in place. No evidence for acute bony fracture is noted. There are numerous air bubbles within the soft tissues of the left lower neck extending to the left upper chest. This finding is deep to the sternocleidomastoid muscle. Significance is uncertain. No history of line placement on the left is mentioned. No evidence for well-defined fluid collection to suggest abscess is seen, however, visualization may be limited due to the lack of intravenous contrast. Mucosal thickening in the right maxillary and ethmoid air cells is seen. The frontal, left ethmoid, left maxillary, and sphenoid sinuses are clear with no evidence for air-fluid levels or mucosal thickening. Nasal septum is midline. The orbits are intact. The orbital globes are normal. The visualized mastoid air cells are opacified with air-fluid levels suggesting mastoiditis. No overlying soft tissue abnormality is seen. Findings related severe anoxic brain injury in the brain are better visualized on the accompanying CT of the head. IMPRESSION: 1. no evidence for acute fracture. 2. Numerous air bubbles within the soft tissues deep to the left sternocleidomastoid muscle of the mid to lower left neck. No well-defined abscess or fluid collection is seen. 3. Incidental mastoiditis bilaterally and chronic sinusitis in the right maxillary and ethmoid sinuses. 4. Findings consistent with severe anoxic brain injury which are better visualized on the accompanying CT of the head.
--- NOTE | 2017-11-15 18:15 | Cat Scan Report ---
FINAL REPORT EXAM: CT NECK WO CON HISTORY: eval submandibular abscess TECHNIQUE: CT examination of the neck without IV contrast. The examination is limited by lack of IV contrast. PRIORS: Maxillofacial and head CT 11/15/2017 FINDINGS: Examination limited by lack of IV contrast. Visualized brain: Suggestion of hypoxic anoxic brain injury better visualized on comparison head CT. Visualized lung apices: Large bilateral pleural effusions layering posteriorly. Nonspecific patchy opacity in both upper lobes may be edema, atelectasis, and/or pneumonitis. Tracheal and esophageal tubes in place. Cervical spine: Slight degenerative change. Paranasal sinuses: Slight mucosal thickening right maxillary and ethmoid sinuses. No acute fluid level noted. A nonspecific bilateral mastoid air cell and middle ear cavity opacification with fluid levels in both mastoid sinuses. Torus tubaris: Obscured by tubing Fossa of Rosenmuller: Obscured by tubing Parapharyngeal fat planes: No focal abnormality Parotid and submandibular glands: No definite parotid gland abnormality. Nonspecific asymmetrically larger right submandibular gland with slightly lower density than the left. This may reflect edema or fluid collection but the examination is limited by lack of IV contrast. No well-defined fluid collection with air bubble to suggest mature abscess. Epiglottis: Obscured by intubation Vallecula: Obscured by intubation Piriform sinus: Obscured by intubation Vocal cord region: No focal abnormality but partly obscured by intubation Thyroid: No abnormality visualized Vessels: No abnormality visualized but limited by lack of IV contrast Lymph nodes: No focal abnormality or gross enlargement but limited by lack of IV contrast Fat stranding throughout the upper chest and neck may reflect anasarca. Nonspecific soft tissue gas in the supraclavicular fossa and left neck deep to the left sternocleidomastoid muscle. This may be secondary to intubation. IMPRESSION: Examination limited by lack of IV contrast. Hypodensity and asymmetric enlargement of the right submandibular gland is nonspecific. The region of hypodensity in the right gland may reflect edema. Abscess cannot be entirely excluded but there is no evidence of air bubble in this region. The lack of montoya-white differentiation again suggesting hypoxic anoxic brain injury in visible portion of brain Large bilateral pleural effusions Bilateral upper lobe patchy opacity may be edema, atelectasis, and/or pneumonitis Bilateral mastoid air cell opacification with fluid levels may reflect eustachian tube dysfunction. Abnormal opacity in both middle ear cavities. Differential includes otomastoiditis bilaterally Multifocal superficial fat stranding may reflect anasarca Nonspecific soft tissue gas deep to the left sternocleidomastoid muscle and in the left supraclavicular fossa may be related to intubation
--- NOTE | 2017-11-15 18:18 | Operative Report ---
Operative Report Operative Report: Date of Procedure: 11/15/2017 Pre-operative Diagnosis: Acute Renal Failure Post-operative Diagnosis: Same Procedure(s): 1. Ultrasound-Guided Access Right Common Femoral Vein 2. Placement of 30 Cm Trialysis Vas-Cath Surgeon: Darrick Vazquez M.D. Community Health Worker: Chiara Anesthesia: 2% lidocaine Plain EBL: Minimal Counts: Correct Complications: None Condition: Critical but stable Findings: Successful placement of right femoral Vas-Cath. All ports easily flushed and aspirated at the completion of the procedure. Specimen: None Indication: The patient is a 29-year-old female who was admitted with diabetic ketoacidosis went into cardiac arrest and has since been in the critical care unit with multisystem organ failure and including acute renal failure. She is in need of hemodialysis and requires temporary access. Her family was given the risks, benefits, and alternative procedures and has consented to the procedure. Description of Procedure: The procedure was performed in the ICU. Ultrasound was used to identify the right common femoral vein and ensure patency. Once this was done the right groin was prepped and draped in normal sterile fashion. Ultrasound was then again used to identify the vein and then the overlying skin and soft tissue was anesthetized with lidocaine. A small stab incision was made, with an 11 blade, and an access needle was used with ultrasound guidance to enter the vein. A 0.035 guidewire was advanced into the vein. The needle was removed and the tract was serially dilated and the Vas-Cath was advanced into the vein by Seldinger technique. All ports were then aspirated and flushed and then probable with the appropriate amount heparin. The catheter was then secured in place with 3-0 Prolene and dressed sterilely. The patient tolerated the procedure well. All sponge, needle, and instrument were correct. The patient remained in the intensive care unit in critical but stable condition.
[2017-11-16] MEDS: HumuLIN R SUB-Q SCH ×4 (00:15→19:59)
[2017-11-16] MEDS: CLEOCIN 600 MG/50 mL 600 MG/50 ML BAG IV SCH ×3 (02:28→20:00)
--- NOTE | 2017-11-16 03:14 | XRay Report ---
FINAL REPORT EXAM: XR CHEST 1V AP HISTORY: follow up respiratory failure TECHNIQUE: An AP view the chest was obtained and compared to the study of 11/15/2017. FINDINGS: The lungs remain diffusely congested with patchy airspace disease throughout both lungs. The heart size is normal. The tip of the ET tube is 1 cm above the sukhjinder. The NG tube and right-sided central venous line appear in good position. The bones soft tissues otherwise are unchanged. IMPRESSION: Stable diffuse pulmonary vascular congestion with bilateral airspace disease. Satisfactory position of all tubes and lines.
[2017-11-16] MEDS: LACTATED RINGERS 1,000 ML IV SCH (04:49)
[2017-11-16 05:00] LABS: Hematocrit 24.4 % (30.3-42.9); Hemoglobin 8.5 gm/dl (10.1-14.3); Mean Corpuscular HGB Conc 35 % (30-34); Mean Corpuscular Hemoglobin 33 pg (28-32); Mean Corpuscular Volume 94 fl (79-97); Red Cell Distribution Width 14.9 % (13.2-15.2)
[2017-11-16 05:01] LABS: Platelet Count 65 K/mm3 (140-440)
[2017-11-16 05:22] LABS: Albumin 2.1 g/dL (3.9-5)
[2017-11-16 05:54] LABS: Band Neutrophils # (Manual) 0.3 K/mm3; Basophils % (Manual) 0 % (0.0-1.8); Eosinophils % (Manual) 0 % (0.0-4.3); Macrocytosis Few; Platelet Estimate Consistent w Auto; Total Cells Counted 100
[2017-11-16] MEDS: SYNTHROID IV SCH (06:52)
[2017-11-16] MEDS: SODIUM CHLORIDE FLUSH SYRINGE 10 ML IV SCH ×3 (07:05→22:45)
[2017-11-16 07:52] LABS: Hepatitis A Antibody IgM Non-Reactive (NonReactive); Hepatitis B Core IgM Non-Reactive (NonReactive); Hepatitis B Surface Antigen Non-Reactive (Negative); Hepatitis C Virus Antibody Non-Reactive (NonReactive)
--- NOTE | 2017-11-16 08:54 | Progress Note ---
Assessment and Plan 1. Acute kidney injury: LOC in the setting of volume depletion and DKA. Patient was started on hemodialysis yesterday due to worsening renal function associated with anuria and hyperkalemia. Patient tolerated HD. 2. Electrolytes: Hypokalemia, replete K. Severe metabolic acidosis, improving. Hypernatremia, improved. 3. Septic shock: On Levophed. 4. DKA. 5. Respiratory failure: On vent. 6. S/p Cardiac arrest. 7. Anemia. 8. Encephalopathy. Prognosis is guarded. Subjective Date of service: 11/16/17 Principal diagnosis: s/p cardiac arrest Interval history: Patient was seen and examined at the bedside. Objective - Vital Signs Vital signs: Vital Signs - 12hr 11/15/17 11/15/17 11/15/17 21:00 21:15 21:30 Temperature Pulse Rate 79 78 79 Respiratory 28 H 28 H 28 H Rate Blood Pressure 92/55 93/50 93/51 O2 Sat by Pulse 93 93 92 Oximetry O2 Sat by Pulse Oximetry [ Bilateral Lower Lobe] 11/15/17 11/15/17 11/15/17 21:45 21:50 22:00 Temperature 99.3 F Pulse Rate 79 81 81 Respiratory 28 H 28 H Rate Blood Pressure 92/53 92/52 93/52 O2 Sat by Pulse 92 90 Oximetry O2 Sat by Pulse 92 Oximetry [ Bilateral Lower Lobe] 11/15/17 11/15/17 11/15/17 22:15 22:30 22:45 Temperature Pulse Rate 84 84 81 Respiratory 28 H 28 H 28 H Rate Blood Pressure 91/46 92/48 97/55 O2 Sat by Pulse 93 93 95 Oximetry O2 Sat by Pulse Oximetry [ Bilateral Lower Lobe] 11/15/17 11/15/17 11/15/17 23:00 23:08 23:15 Temperature Pulse Rate 81 81 81 Respiratory 28 H 28 H Rate Blood Pressure 96/57 99/62 O2 Sat by Pulse 94 93 Oximetry O2 Sat by Pulse Oximetry [ Bilateral Lower Lobe] 11/15/17 11/15/17 11/15/17 23:30 23:35 23:45 Temperature Pulse Rate 81 81 82 Respiratory 28 H 28 H 28 H Rate Blood Pressure 102/62 102/62 102/64 O2 Sat by Pulse 95 95 95 Oximetry O2 Sat by Pulse Oximetry [ Bilateral Lower Lobe] 11/15/17 11/16/17 11/16/17 23:50 00:00 00:12 Temperature 99.0 F Pulse Rate 81 81 82 Respiratory 28 H 28 H Rate Blood Pressure 103/64 103/64 O2 Sat by Pulse 95 95 95 Oximetry O2 Sat by Pulse Oximetry [ Bilateral Lower Lobe] 11/16/17 11/16/17 11/16/17 00:15 00:30 00:45 Temperature Pulse Rate 82 82 86 Respiratory 28 H 28 H 28 H Rate Blood Pressure 108/64 107/63 108/65 O2 Sat by Pulse 95 94 94 Oximetry O2 Sat by Pulse Oximetry [ Bilateral Lower Lobe] 11/16/17 11/16/17 11/16/17 00:57 01:00 01:15 Temperature 99.2 F Pulse Rate 86 86 84 Respiratory 28 H 28 H 28 H Rate Blood Pressure 108/65 108/65 110/68 O2 Sat by Pulse 95 94 Oximetry O2 Sat by Pulse 95 Oximetry [ Bilateral Lower Lobe] 11/16/17 11/16/17 11/16/17 01:30 01:45 02:00 Temperature Pulse Rate 82 82 81 Respiratory 28 H 28 H 28 H Rate Blood Pressure 117/72 118/75 112/68 O2 Sat by Pulse 94 93 94 Oximetry O2 Sat by Pulse Oximetry [ Bilateral Lower Lobe] 11/16/17 11/16/17 11/16/17 02:15 02:30 02:45 Temperature Pulse Rate 82 80 83 Respiratory 28 H 28 H 28 H Rate Blood Pressure 120/77 121/78 118/77 O2 Sat by Pulse 92 93 93 Oximetry O2 Sat by Pulse Oximetry [ Bilateral Lower Lobe] 11/16/17 11/16/17 11/16/17 03:00 03:15 03:30 Temperature Pulse Rate 82 83 85 Respiratory 28 H 28 H 28 H Rate Blood Pressure 113/69 105/64 103/55 O2 Sat by Pulse 92 92 92 Oximetry O2 Sat by Pulse Oximetry [ Bilateral Lower Lobe] 11/16/17 11/16/17 11/16/17 03:45 04:00 04:16 Temperature 99.6 F Pulse Rate 83 82 Respiratory 28 H 28 H Rate Blood Pressure 103/60 108/67 119/90 O2 Sat by Pulse 92 92 85 Oximetry O2 Sat by Pulse Oximetry [ Bilateral Lower Lobe] 11/16/17 11/16/17 11/16/17 04:30 04:45 05:00 Temperature Pulse Rate 81 78 77 Respiratory 28 H 28 H 28 H Rate Blood Pressure 102/67 106/66 106/70 O2 Sat by Pulse 95 94 93 Oximetry O2 Sat by Pulse Oximetry [ Bilateral Lower Lobe] 11/16/17 11/16/17 11/16/17 05:15 05:30 05:46 Temperature Pulse Rate 77 76 79 Respiratory 28 H 28 H 28 H Rate Blood Pressure 109/70 106/69 93/52 O2 Sat by Pulse 94 93 94 Oximetry O2 Sat by Pulse Oximetry [ Bilateral Lower Lobe] 11/16/17 11/16/17 11/16/17 06:00 06:15 06:30 Temperature Pulse Rate 81 78 77 Respiratory 28 H 28 H 28 H Rate Blood Pressure 92/45 99/60 106/68 O2 Sat by Pulse 93 94 96 Oximetry O2 Sat by Pulse Oximetry [ Bilateral Lower Lobe] 11/16/17 11/16/17 06:45 08:00 Temperature Pulse Rate 78 75 Respiratory 28 H Rate Blood Pressure 100/61 123/82 O2 Sat by Pulse 93 95 Oximetry O2 Sat by Pulse Oximetry [ Bilateral Lower Lobe] - General Appearance General appearance: well-developed, appears stated age, intubated, other (on vent, FiO2 60%) EENT: ATNC Neck: supple Respiratory: Present: Clear to Ascultation Cardiology: regular, S1S2, no murmurs Gastrointestinal: normoactive bowel sounds, no tenderness Integumentary: no rash, warm and dry Neurologic: obtunded Musculoskeletal: other (trace pedal edema noted, right groin temp catheter) - Lab 11/16/17 04:40 11/16/17 04:40 Most recent lab results Calcium 8.0 mg/dL (8.4-10.2) L D 11/16/17 04:40 Phosphorus 4.90 mg/dL (2.5-4.5) H 11/13/17 06:00 Magnesium 1.20 mg/dL (1.7-2.3) L 11/13/17 06:00
[2017-11-16] MEDS ORDERED: POTASSIUM CHLORIDE FEEDTUBE ONE (10:00)
--- NOTE | 2017-11-16 10:19 | Gastroenterology Consultation ---
<SPENCER JIMÉNEZ - Last Filed: 11/16/17 10:30> History of Present Illness - Reason for Consult Consult date: 11/16/17 liver dysfunction Requesting physician: MARIANA MANN - History of Present Illness Patient is a 37 y/o with PMH of DM who was brought to ED by EMS after being found lethargic at home by family. She was subsequently diagnosed with DKA, bilateral PNA, septic shock, ARF, and hyperkalemia. She is s/p cardiac arrest x 4 (s/p amiodarone gtt with cardiology following) and is currently intubated on pressors in ICU. GI has been consulted for evaluation of liver dysfunction due to elevated LFTs. Patient unable to provide history and no family at bedside. History obtained via chart review. LFTs were WNL on admission and are now elevated with AST 2275, ALT 647, and alk phos 268. No known hx of previous liver disease, ETOH abuse, or drug use. Hepatitis panel negative. Past History Past Medical History: diabetes, hypertension, other (non-compliance) Past Surgical History: No surgical history Social history: other (unknown) Family history: diabetes, hypertension Medications and Allergies Allergies Allergy/AdvReac Type Severity Reaction Status Date / Time No Known Allergies Allergy Verified 08/11/17 19:45 Home Medications Medication Instructions Recorded Confirmed Last Taken Type Insulin NPH/Regular [NovoLIN 70/30] 18 unit SUB-Q BIDDIAB #1 vial 07/07/17 Unknown Rx Levothyroxine 200 mcg PO DAILY #30 07/07/17 Unknown Rx Protonix TAB 40 mg PO DAILY #30 07/07/17 Unknown Rx Active Meds: Active Medications Acetaminophen (Tylenol) 650 mg PO Q4H PRN PRN Reason: Pain MILD(1-3)/Fever >100.5/SCHUSTER Last Admin: 11/13/17 06:18 Dose: 650 mg Lipase/Protease/Amylase (Pancreaze Dr 10,500 Unit) 1 each FEEDTUBE PRN PRN PRN Reason: For Clogged Feeding Tube Dextrose (D50w (25gm) Syringe) 0 ml IV PRN PRN PRN Reason: Hypoglycemia Famotidine (Pepcid) 20 mg IV DAILY [facility] Last Admin: 11/15/17 10:09 Dose: 20 mg Hydrophilic Ointment (Vaseline Lip Therapy) 1 applic TP Q2HR PRN PRN Reason: Dry Lips Vasopressin 20 unit/ Sodium (Chloride) 101 mls @ 9.09 mls/hr IV TITR [facility]; Protocol Last Titration: 11/13/17 13:52 Dose: 0 units/min, 0 mls/hr Norepinephrine 8 mg/ Sodium (Chloride) 250 mls @ 3.75 mls/hr IV TITR [facility]; Protocol Last Titration: 11/15/17 18:30 Dose: 2 mcg/min, 3.75 mls/hr Epinephrine 8 mg/ Sodium (Chloride) 250 mls @ 3.75 mls/hr IV TITR [facility]; Protocol Last Titration: 11/13/17 15:00 Dose: 0 mcg/min, 0 mls/hr Dopamine HCl/Dextrose (Intropin Drip 800 Mg/D5w 250 Ml) 800 mg in 250 mls @ 2.381 mls/hr IV TITR [facility]; Protocol Last Titration: 11/11/17 21:07 Dose: 0 mcg/kg/min, 0 mls/hr Phenylephrine HCl 100 mg/ (Sodium Chloride) 100 mls @ 3 mls/hr IV TITR [facility]; Protocol Fentanyl Citrate (Fentanyl Drip Premix) 2,000 mcg in 100 mls @ 3.175 mls/hr IV TITR [facility]; Protocol Last Titration: 11/15/17 19:19 Dose: 0 mcg/kg/hr, 0 mls/hr Cisatracurium Besylate 10 mg/ (Sodium Chloride) 100 mls @ 38.1 mls/hr IV TITR [facility]; Protocol Last Titration: 11/15/17 08:52 Dose: 0 mcg/kg/min, 0 mls/hr Lactated Ringer's (Lactated Ringers) 1,000 mls @ 100 mls/hr IV DIRECT [facility] Last Admin: 11/16/17 04:49 Dose: 100 mls/hr Clindamycin HCl (Cleocin 600 Mg/50 Ml) 600 mg in 50 mls @ 100 mls/hr IV Q8H [facility] ; Protocol Last Admin: 11/16/17 02:28 Dose: 100 mls/hr Lorazepam 100 mg/ Sodium Chloride/ Miscellaneous Information 100 mls @ 1 mls/ hr IV TITR [facility]; Protocol Last Titration: 11/15/17 17:09 Dose: 0 mg/hr, 0 mls/hr Cefazolin Sodium 2 gm/ Sodium (Chloride) 100 mls @ 200 mls/hr IV Q24HR [facility] Last Admin: 11/15/17 10:11 Dose: 200 mls/hr Sodium Chloride (Nacl 0.9%) 100 mls @ 999 mls/hr IV RICARDO PRN PRN Reason: Hypotension Insulin Glargine (Lantus) 15 units SUB-Q QAMDIAB [facility] Last Admin: 11/15/17 10:09 Dose: 15 units Insulin Human Regular (Humulin R) 0 units SUB-Q Q6HR [facility]; Protocol Last Admin: 11/16/17 06:53 Dose: Not Given Levothyroxine Sodium (Synthroid) 100 mcg IV DAILY@0600 [facility] Last Admin: 11/16/17 06:52 Dose: 100 mcg Methylprednisolone Sodium Succinate (Solu-Medrol) 60 mg IV Q6HR [facility] Last Admin: 11/16/17 06:52 Dose: 60 mg Multi-Ingred Cream/Lotion/Oil/Oint (Artificial Tears Ophth Oint) 1 applic OU Q4HR PRN PRN Reason: Dry Eye(s) Ondansetron HCl (Zofran) 4 mg IV Q8H PRN PRN Reason: Nausea And Vomiting Simple Syrup (Simple Syrup) 15 ml FEEDTUBE PRN PRN PRN Reason: Hypoglycemia Simple Syrup (Simple Syrup) 30 ml FEEDTUBE PRN PRN PRN Reason: Hypoglycemia Sodium Bicarbonate (Sodium Bicarbonate) 325 mg FEEDTUBE PRN PRN PRN Reason: For Clogged Feeding Tube Sodium Chloride (Sodium Chloride Flush Syringe 10 Ml) 10 ml IV BID [facility] Last Admin: 11/16/17 07:05 Dose: Not Given Sodium Chloride (Sodium Chloride Flush Syringe 10 Ml) 10 ml IV PRN PRN PRN Reason: LINE FLUSH Last Admin: 11/15/17 18:25 Dose: 10 ml Sodium Chloride (Nacl 0.9% 500 Ml) 1 ml IV DIRECT [facility] Review of Systems - Review of Systems ROS unobtainable: due to mental status Exam - Constitutional Vital Signs: Temp Pulse Resp BP Pulse Ox 99.6 F 75 28 H 123/82 95 11/16/17 04:00 11/16/17 08:00 11/16/17 06:45 11/16/17 08:00 11/16/17 08:00 General appearance: other (intubated on pressors, unreponsive) - Respiratory Respiratory: bilateral: diminished - Cardiovascular Rhythm: regular Heart Sounds: Present: S1 & S2 - Gastrointestinal General gastrointestinal: Present: soft, non-distended, normal bowel sounds - Neurologic Neurological: other (unable to assess) - Labs CBC & Chem 7: 11/16/17 04:40 11/16/17 04:40 Lab Results: Laboratory Results - last 24 hr 11/15/17 11/15/17 11/15/17 10:00 10:00 12:24 WBC 12.0 H RBC 2.23 L Hgb 7.2 L D Hct 21.7 L D MCV 97 MCH 32 MCHC 33 RDW 15.2 Plt Count 64 L Add Manual Diff Complete Total Counted 100 Seg Neutrophils % Cutting Room Supervisor Seg Neuts % (Manual) 79.0 H Band Neutrophils % 13.0 Lymphocytes % (Manual) 4.0 L Reactive Lymphs % (Man) 0 Monocytes % (Manual) 4.0 Eosinophils % (Manual) 0 Basophils % (Manual) 0 Metamyelocytes % 0 Myelocytes % 0 Promyelocytes % 0 Blast Cells % 0 Nucleated RBC % Not Reportable Seg Neutrophils # Man 9.5 H Band Neutrophils # 1.6 Lymphocytes # (Manual) 0.5 L Abs React Lymphs (Man) 0.0 Monocytes # (Manual) 0.5 Eosinophils # (Manual) 0.0 Basophils # (Manual) 0.0 Metamyelocytes # 0.0 Myelocytes # 0.0 Promyelocytes # 0.0 Blast Cells # 0.0 WBC Morphology Not Reportable Hypersegmented Neuts Not Reportable Hyposegmented Neuts Not Reportable Hypogranular Neuts Not Reportable Smudge Cells Not Reportable Toxic Granulation Not Reportable Toxic Vacuolation Not Reportable Dohle Bodies Not Reportable Pelger-Huet Anomaly Not Reportable Cassandra Rods Not Reportable Platelet Estimate Consistent w auto Clumped Platelets Not Reportable Plt Clumps, EDTA Not Reportable Large Platelets Not Reportable Giant Platelets Not Reportable Platelet Satelliting Not Reportable Plt Morphology Comment Not Reportable RBC Morphology Normal Dimorphic RBCs Not Reportable Polychromasia Not Reportable Hypochromasia Not Reportable Poikilocytosis Not Reportable Anisocytosis Not Reportable Microcytosis Not Reportable Macrocytosis Not Reportable Spherocytes Not Reportable Pappenheimer Bodies Not Reportable Sickle Cells Not Reportable Target Cells Not Reportable Tear Drop Cells Not Reportable Ovalocytes Not Reportable Helmet Cells Not Reportable Dickinson-[place] Bodies Not Reportable Higgins Rings Not Reportable [place] Cells Not Reportable Bite Cells Not Reportable Crenated Cell Not Reportable Elliptocytes Not Reportable Acanthocytes (Spur) Not Reportable Rouleaux Not Reportable Hemoglobin C Crystals Not Reportable Schistocytes Not Reportable Malaria parasites Not Reportable Munir Bodies Not Reportable Hem Pathologist Commnt No POC ABG pH POC ABG pCO2 POC ABG pO2 POC ABG HCO3 POC ABG Total CO2 POC ABG O2 Sat POC ABG Base Excess FiO2 Sodium 142 Potassium 3.7 Chloride 101.9 Carbon Dioxide 21 L Anion Gap 23 BUN 76 H Creatinine 5.7 H Estimated GFR 8 BUN/Creatinine Ratio 13 Glucose 386 H POC Glucose 374 H Calcium 6.9 L Total Bilirubin AST ALT Alkaline Phosphatase Total Creatine Kinase Total Protein Albumin Albumin/Globulin Ratio Hepatitis A IgM Ab Hep Bs Antigen Hep B Core IgM Ab Hepatitis C Antibody 11/15/17 11/16/17 11/16/17 18:42 00:00 04:19 WBC RBC Hgb Hct MCV MCH MCHC RDW Plt Count Add Manual Diff Total Counted Seg Neutrophils % Seg Neuts % (Manual) Band Neutrophils % Lymphocytes % (Manual) Reactive Lymphs % (Man) Monocytes % (Manual) Eosinophils % (Manual) Basophils % (Manual) Metamyelocytes % Myelocytes % Promyelocytes % Blast Cells % Nucleated RBC % Seg Neutrophils # Man Band Neutrophils # Lymphocytes # (Manual) Abs React Lymphs (Man) Monocytes # (Manual) Eosinophils # (Manual) Basophils # (Manual) Metamyelocytes # Myelocytes # Promyelocytes # Blast Cells # WBC Morphology Hypersegmented Neuts Hyposegmented Neuts Hypogranular Neuts Smudge Cells Toxic Granulation Toxic Vacuolation Dohle Bodies Pelger-Huet Anomaly Cassandra Rods Platelet Estimate Clumped Platelets Plt Clumps, EDTA Large Platelets Giant Platelets Platelet Satelliting Plt Morphology Comment RBC Morphology Dimorphic RBCs Polychromasia Hypochromasia Poikilocytosis Anisocytosis Microcytosis Macrocytosis Spherocytes Pappenheimer Bodies Sickle Cells Target Cells Tear Drop Cells Ovalocytes Helmet Cells Dickinson-[place] Bodies Higgins Rings [place] Cells Bite Cells Crenated Cell Elliptocytes Acanthocytes (Spur) Rouleaux Hemoglobin C Crystals Schistocytes Malaria parasites Munir Bodies Hem Pathologist Commnt POC ABG pH 7.409 POC ABG pCO2 42.1 POC ABG pO2 66 L POC ABG HCO3 26.6 POC ABG Total CO2 28 POC ABG O2 Sat 93 POC ABG Base Excess 2 FiO2 55 Sodium Potassium Chloride Carbon Dioxide Anion Gap BUN Creatinine Estimated GFR BUN/Creatinine Ratio Glucose POC Glucose 343 H 205 H Calcium Total Bilirubin AST ALT Alkaline Phosphatase Total Creatine Kinase Total Protein Albumin Albumin/Globulin Ratio Hepatitis A IgM Ab Hep Bs Antigen Hep B Core IgM Ab Hepatitis C Antibody 11/16/17 11/16/17 11/16/17 04:40 04:40 05:14 WBC 10.9 RBC 2.60 L Hgb 8.5 L Hct 24.4 L MCV 94 MCH 33 H MCHC 35 H RDW 14.9 Plt Count 65 L Add Manual Diff Complete Total Counted 100 Seg Neutrophils % Cutting Room Supervisor Seg Neuts % (Manual) 92.0 H Band Neutrophils % 3.0 Lymphocytes % (Manual) 2.0 L Reactive Lymphs % (Man) 0 Monocytes % (Manual) 3.0 Eosinophils % (Manual) 0 Basophils % (Manual) 0 Metamyelocytes % 0 Myelocytes % 0 Promyelocytes % 0 Blast Cells % 0 Nucleated RBC % Not Reportable Seg Neutrophils # Man 10.0 H Band Neutrophils # 0.3 Lymphocytes # (Manual) 0.2 L Abs React Lymphs (Man) 0.0 Monocytes # (Manual) 0.3 Eosinophils # (Manual) 0.0 Basophils # (Manual) 0.0 Metamyelocytes # 0.0 Myelocytes # 0.0 Promyelocytes # 0.0 Blast Cells # 0.0 WBC Morphology Not Reportable Hypersegmented Neuts Not Reportable Hyposegmented Neuts Not Reportable Hypogranular Neuts Not Reportable Smudge Cells Not Reportable Toxic Granulation Not Reportable Toxic Vacuolation Not Reportable Dohle Bodies Not Reportable Pelger-Huet Anomaly Not Reportable Cassandra Rods Not Reportable Platelet Estimate Consistent w auto Clumped Platelets Not Reportable Plt Clumps, EDTA Not Reportable Large Platelets Not Reportable Giant Platelets Not Reportable Platelet Satelliting Not Reportable Plt Morphology Comment Not Reportable RBC Morphology Not Reportable Dimorphic RBCs Not Reportable Polychromasia Not Reportable Hypochromasia Not Reportable Poikilocytosis Not Reportable Anisocytosis Not Reportable Microcytosis Not Reportable Macrocytosis Few Spherocytes Not Reportable Pappenheimer Bodies Not Reportable Sickle Cells Not Reportable Target Cells Not Reportable Tear Drop Cells Not Reportable Ovalocytes Not Reportable Helmet Cells Not Reportable Dickinson-[place] Bodies Not Reportable Higgins Rings Not Reportable [place] Cells Not Reportable Bite Cells Not Reportable Crenated Cell Not Reportable Elliptocytes Not Reportable Acanthocytes (Spur) Not Reportable Rouleaux Not Reportable Hemoglobin C Crystals Not Reportable Schistocytes Not Reportable Malaria parasites Not Reportable Mnuir Bodies Not Reportable Hem Pathologist Commnt No POC ABG pH POC ABG pCO2 POC ABG pO2 POC ABG HCO3 POC ABG Total CO2 POC ABG O2 Sat POC ABG Base Excess FiO2 Sodium 140 Potassium 3.2 L Chloride 99.9 Carbon Dioxide 26 Anion Gap 17 BUN 48 H Creatinine 3.7 H Estimated GFR 14 BUN/Creatinine Ratio 13 Glucose 142 H POC Glucose 139 H Calcium 8.0 L D Total Bilirubin 0.30 AST 2275 H ALT 647 H Alkaline Phosphatase 268 H Total Creatine Kinase 363 H Total Protein 3.9 L Albumin 2.1 L Albumin/Globulin Ratio 1.2 Hepatitis A IgM Ab Hep Bs Antigen Hep B Core IgM Ab Hepatitis C Antibody 11/16/17 05:50 WBC RBC Hgb Hct MCV MCH MCHC RDW Plt Count Add Manual Diff Total Counted Seg Neutrophils % Seg Neuts % (Manual) Band Neutrophils % Lymphocytes % (Manual) Reactive Lymphs % (Man) Monocytes % (Manual) Eosinophils % (Manual) Basophils % (Manual) Metamyelocytes % Myelocytes % Promyelocytes % Blast Cells % Nucleated RBC % Seg Neutrophils # Man Band Neutrophils # Lymphocytes # (Manual) Abs React Lymphs (Man) Monocytes # (Manual) Eosinophils # (Manual) Basophils # (Manual) Metamyelocytes # Myelocytes # Promyelocytes # Blast Cells # WBC Morphology Hypersegmented Neuts Hyposegmented Neuts Hypogranular Neuts Smudge Cells Toxic Granulation Toxic Vacuolation Dohle Bodies Pelger-Huet Anomaly Cassandra Rods Platelet Estimate Clumped Platelets Plt Clumps, EDTA Large Platelets Giant Platelets Platelet Satelliting Plt Morphology Comment RBC Morphology Dimorphic RBCs Polychromasia Hypochromasia Poikilocytosis Anisocytosis Microcytosis Macrocytosis Spherocytes Pappenheimer Bodies Sickle Cells Target Cells Tear Drop Cells Ovalocytes Helmet Cells Dickinson-[place] Bodies Higgins Rings [place] Cells Bite Cells Crenated Cell Elliptocytes Acanthocytes (Spur) Rouleaux Hemoglobin C Crystals Schistocytes Malaria parasites Munir Bodies Hem Pathologist Commnt POC ABG pH POC ABG pCO2 POC ABG pO2 POC ABG HCO3 POC ABG Total CO2 POC ABG O2 Sat POC ABG Base Excess FiO2 Sodium Potassium Chloride Carbon Dioxide Anion Gap BUN Creatinine Estimated GFR BUN/Creatinine Ratio Glucose POC Glucose Calcium Total Bilirubin AST ALT Alkaline Phosphatase Total Creatine Kinase Total Protein Albumin Albumin/Globulin Ratio Hepatitis A IgM Ab Non-reactive Hep Bs Antigen Non-reactive Hep B Core IgM Ab Non-reactive Hepatitis C Antibody Non-reactive Assessment and Plan 1.elevated LFTs -LFTs WNL on admission 11/10 -AST 2275, ALT 647, alk phos 268, T.kathleen 0.30 -hepatitis panel negative -etiology-most likely 2/2 shock vs medication induced -will order U/S and INR -continue supportive care -will follow <DREW DIXON - Last Filed: 11/17/17 16:46> Medications and Allergies Active Meds: Active Medications Acetaminophen (Tylenol) 650 mg PO Q4H PRN PRN Reason: Pain MILD(1-3)/Fever >100.5/SCHUSTER Last Admin: 11/13/17 06:18 Dose: 650 mg Lipase/Protease/Amylase (Pancreaze Dr 10,500 Unit) 1 each FEEDTUBE PRN PRN PRN Reason: For Clogged Feeding Tube Dextrose (D50w (25gm) Syringe) 0 ml IV PRN PRN PRN Reason: Hypoglycemia Famotidine (Pepcid) 20 mg PO DAILY [facility] Last Admin: 11/17/17 09:26 Dose: Not Given Hydrophilic Ointment (Vaseline Lip Therapy) 1 applic TP Q2HR PRN PRN Reason: Dry Lips Vasopressin 20 unit/ Sodium (Chloride) 101 mls @ 9.09 mls/hr IV TITR [facility]; Protocol Last Titration: 11/13/17 13:52 Dose: 0 units/min, 0 mls/hr Norepinephrine 8 mg/ Sodium (Chloride) 250 mls @ 3.75 mls/hr IV TITR [facility]; Protocol Last Titration: 11/16/17 11:03 Dose: 0 mcg/min, 0 mls/hr Epinephrine 8 mg/ Sodium (Chloride) 250 mls @ 3.75 mls/hr IV TITR [facility]; Protocol Last Titration: 11/13/17 15:00 Dose: 0 mcg/min, 0 mls/hr Dopamine HCl/Dextrose (Intropin Drip 800 Mg/D5w 250 Ml) 800 mg in 250 mls @ 2.381 mls/hr IV TITR [facility]; Protocol Last Titration: 11/11/17 21:07 Dose: 0 mcg/kg/min, 0 mls/hr Phenylephrine HCl 100 mg/ (Sodium Chloride) 100 mls @ 3 mls/hr IV TITR [facility]; Protocol Fentanyl Citrate (Fentanyl Drip Premix) 2,000 mcg in 100 mls @ 3.175 mls/hr IV TITR [facility]; Protocol Last Titration: 11/15/17 19:19 Dose: 0 mcg/kg/hr, 0 mls/hr Cisatracurium Besylate 10 mg/ (Sodium Chloride) 100 mls @ 38.1 mls/hr IV TITR [facility]; Protocol Last Titration: 11/15/17 08:52 Dose: 0 mcg/kg/min, 0 mls/hr Clindamycin HCl (Cleocin 600 Mg/50 Ml) 600 mg in 50 mls @ 100 mls/hr IV Q8H [facility] ; Protocol Last Admin: 11/17/17 15:07 Dose: 100 mls/hr Lorazepam 100 mg/ Sodium Chloride/ Miscellaneous Information 100 mls @ 1 mls/ hr IV TITR [facility]; Protocol Last Titration: 11/15/17 17:09 Dose: 0 mg/hr, 0 mls/hr Cefazolin Sodium 2 gm/ Sodium (Chloride) 100 mls @ 200 mls/hr IV Q24HR [facility] Last Admin: 11/17/17 15:57 Dose: 200 mls/hr Sodium Chloride (Nacl 0.9%) 100 mls @ 999 mls/hr IV RICARDO PRN PRN Reason: Hypotension Fluconazole (Diflucan) 200 mg in 100 mls @ 100 mls/hr IV Q24HR [facility]; Protocol Last Admin: 11/17/17 09:16 Dose: 100 mls/hr Sodium Chloride (Nacl 0.9%) 100 mls @ 999 mls/hr IV RICARDO PRN PRN Reason: Hypotension Insulin Glargine (Lantus) 15 units SUB-Q QAMDIAB [facility] Last Admin: 11/17/17 09:17 Dose: 15 units Insulin Human Regular (Humulin R) 0 units SUB-Q Q6HR [facility]; Protocol Last Admin: 11/17/17 15:15 Dose: Not Given Levothyroxine Sodium (Synthroid) 100 mcg IV DAILY@0600 [facility] Last Admin: 11/17/17 05:19 Dose: 100 mcg Methylprednisolone Sodium Succinate (Solu-Medrol) 60 mg IV Q6HR [facility] Last Admin: 11/17/17 15:14 Dose: 60 mg Multi-Ingred Cream/Lotion/Oil/Oint (Artificial Tears Ophth Oint) 1 applic OU Q4HR PRN PRN Reason: Dry Eye(s) Ondansetron HCl (Zofran) 4 mg IV Q8H PRN PRN Reason: Nausea And Vomiting Simple Syrup (Simple Syrup) 15 ml FEEDTUBE PRN PRN PRN Reason: Hypoglycemia Simple Syrup (Simple Syrup) 30 ml FEEDTUBE PRN PRN PRN Reason: Hypoglycemia Sodium Bicarbonate (Sodium Bicarbonate) 325 mg FEEDTUBE PRN PRN PRN Reason: For Clogged Feeding Tube Sodium Chloride (Sodium Chloride Flush Syringe 10 Ml) 10 ml IV BID [facility] Last Admin: 11/17/17 09:27 Dose: 10 ml Sodium Chloride (Sodium Chloride Flush Syringe 10 Ml) 10 ml IV PRN PRN PRN Reason: LINE FLUSH Last Admin: 11/15/17 18:25 Dose: 10 ml Sodium Chloride (Nacl 0.9% 500 Ml) 1 ml IV DIRECT [facility] Exam - Constitutional Vital Signs: Temp Pulse Resp BP Pulse Ox 97.4 F L 70 26 H 96/59 95 11/17/17 16:00 11/17/17 15:52 11/17/17 15:30 11/17/17 15:52 11/17/17 15:52 - Labs CBC & Chem 7: 11/17/17 05:15 11/17/17 05:15 Lab Results: Laboratory Results - last 24 hr 11/16/17 11/16/17 11/16/17 14:08 18:51 23:48 WBC RBC Hgb Hct MCV MCH MCHC RDW Plt Count Add Manual Diff Total Counted Seg Neutrophils % Seg Neuts % (Manual) Band Neutrophils % Lymphocytes % (Manual) Reactive Lymphs % (Man) Monocytes % (Manual) Eosinophils % (Manual) Basophils % (Manual) Metamyelocytes % Myelocytes % Promyelocytes % Blast Cells % Nucleated RBC % Seg Neutrophils # Man Band Neutrophils # Lymphocytes # (Manual) Abs React Lymphs (Man) Monocytes # (Manual) Eosinophils # (Manual) Basophils # (Manual) Metamyelocytes # Myelocytes # Promyelocytes # Blast Cells # WBC Morphology Hypersegmented Neuts Hyposegmented Neuts Hypogranular Neuts Smudge Cells Toxic Granulation Toxic Vacuolation Dohle Bodies Pelger-Huet Anomaly Cassandra Rods Platelet Estimate Clumped Platelets Plt Clumps, EDTA Large Platelets Giant Platelets Platelet Satelliting Plt Morphology Comment RBC Morphology Dimorphic RBCs Polychromasia Hypochromasia Poikilocytosis Anisocytosis Microcytosis Macrocytosis Spherocytes Pappenheimer Bodies Sickle Cells Target Cells Tear Drop Cells Ovalocytes Helmet Cells Dickinson-[place] Bodies Higgins Rings [place] Cells Bite Cells Crenated Cell Elliptocytes Acanthocytes (Spur) Rouleaux Hemoglobin C Crystals Schistocytes Malaria parasites Munir Bodies Hem Pathologist Commnt PT INR POC ABG pH POC ABG pCO2 POC ABG pO2 POC ABG HCO3 POC ABG Total CO2 POC ABG O2 Sat POC ABG Base Excess FiO2 Sodium Potassium Chloride Carbon Dioxide Anion Gap BUN Creatinine Estimated GFR BUN/Creatinine Ratio Glucose POC Glucose 201 H 130 H 138 H Calcium Total Bilirubin AST ALT Alkaline Phosphatase Total Protein Albumin Albumin/Globulin Ratio 11/17/17 11/17/17 11/17/17 04:16 05:15 05:15 WBC RBC Hgb Hct MCV MCH MCHC RDW Plt Count Add Manual Diff Total Counted Seg Neutrophils % Seg Neuts % (Manual) Band Neutrophils % Lymphocytes % (Manual) Reactive Lymphs % (Man) Monocytes % (Manual) Eosinophils % (Manual) Basophils % (Manual) Metamyelocytes % Myelocytes % Promyelocytes % Blast Cells % Nucleated RBC % Seg Neutrophils # Man Band Neutrophils # Lymphocytes # (Manual) Abs React Lymphs (Man) Monocytes # (Manual) Eosinophils # (Manual) Basophils # (Manual) Metamyelocytes # Myelocytes # Promyelocytes # Blast Cells # WBC Morphology Hypersegmented Neuts Hyposegmented Neuts Hypogranular Neuts Smudge Cells Toxic Granulation Toxic Vacuolation Dohle Bodies Pelger-Huet Anomaly Cassandra Rods Platelet Estimate Clumped Platelets Plt Clumps, EDTA Large Platelets Giant Platelets Platelet Satelliting Plt Morphology Comment RBC Morphology Dimorphic RBCs Polychromasia Hypochromasia Poikilocytosis Anisocytosis Microcytosis Macrocytosis Spherocytes Pappenheimer Bodies Sickle Cells Target Cells Tear Drop Cells Ovalocytes Helmet Cells Dickinson-[place] Bodies Higgins Rings [place] Cells Bite Cells Crenated Cell Elliptocytes Acanthocytes (Spur) Rouleaux Hemoglobin C Crystals Schistocytes Malaria parasites Munir Bodies Hem Pathologist Commnt PT 18.6 H INR 1.46 H POC ABG pH 7.487 H POC ABG pCO2 37.3 POC ABG pO2 158 H POC ABG HCO3 28.3 POC ABG Total CO2 29 POC ABG O2 Sat 100 POC ABG Base Excess 5 FiO2 60 Sodium 141 Potassium 3.4 L Chloride 99.7 Carbon Dioxide 23 Anion Gap 22 BUN 70 H Creatinine 4.6 H Estimated GFR 11 BUN/Creatinine Ratio 15 Glucose 107 H POC Glucose Calcium 7.5 L Total Bilirubin 0.40 AST 2722 H ALT 504 H Alkaline Phosphatase 278 H Total Protein 3.8 L Albumin 2.3 L Albumin/Globulin Ratio 1.5 11/17/17 11/17/17 11/17/17 05:15 06:07 11:28 WBC 8.9 RBC 2.58 L Hgb 8.3 L Hct 24.4 L MCV 95 MCH 32 MCHC 34 RDW 14.7 Plt Count 49 L Add Manual Diff Complete Total Counted 100 Seg Neutrophils % Cutting Room Supervisor Seg Neuts % (Manual) 83.0 H Band Neutrophils % 9.0 Lymphocytes % (Manual) 4.0 L Reactive Lymphs % (Man) 0 Monocytes % (Manual) 4.0 Eosinophils % (Manual) 0 Basophils % (Manual) 0 Metamyelocytes % 0 Myelocytes % 0 Promyelocytes % 0 Blast Cells % 0 Nucleated RBC % Not Reportable Seg Neutrophils # Man 7.4 Band Neutrophils # 0.8 Lymphocytes # (Manual) 0.4 L Abs React Lymphs (Man) 0.0 Monocytes # (Manual) 0.4 Eosinophils # (Manual) 0.0 Basophils # (Manual) 0.0 Metamyelocytes # 0.0 Myelocytes # 0.0 Promyelocytes # 0.0 Blast Cells # 0.0 WBC Morphology Not Reportable Hypersegmented Neuts Not Reportable Hyposegmented Neuts Not Reportable Hypogranular Neuts Not Reportable Smudge Cells Not Reportable Toxic Granulation Not Reportable Toxic Vacuolation Not Reportable Dohle Bodies Not Reportable Pelger-Huet Anomaly Not Reportable Cassandra Rods Not Reportable Platelet Estimate Consistent w auto Clumped Platelets Not Reportable Plt Clumps, EDTA Not Reportable Large Platelets Not Reportable Giant Platelets Not Reportable Platelet Satelliting Not Reportable Plt Morphology Comment Not Reportable RBC Morphology Normal Dimorphic RBCs Not Reportable Polychromasia Not Reportable Hypochromasia Not Reportable Poikilocytosis Not Reportable Anisocytosis Not Reportable Microcytosis Not Reportable Macrocytosis Not Reportable Spherocytes Not Reportable Pappenheimer Bodies Not Reportable Sickle Cells Not Reportable Target Cells Not Reportable Tear Drop Cells Not Reportable Ovalocytes Not Reportable Helmet Cells Not Reportable Dickinson-[place] Bodies Not Reportable Higgins Rings Not Reportable [place] Cells Not Reportable Bite Cells Not Reportable Crenated Cell Not Reportable Elliptocytes Not Reportable Acanthocytes (Spur) Not Reportable Rouleaux Not Reportable Hemoglobin C Crystals Not Reportable Schistocytes Not Reportable Malaria parasites Not Reportable [place] Bodies Not Reportable Hem Pathologist Commnt No PT INR POC ABG pH POC ABG pCO2 POC ABG pO2 POC ABG HCO3 POC ABG Total CO2 POC ABG O2 Sat POC ABG Base Excess FiO2 Sodium Potassium Chloride Carbon Dioxide Anion Gap BUN Creatinine Estimated GFR BUN/Creatinine Ratio Glucose POC Glucose 126 H 195 H Calcium Total Bilirubin AST ALT Alkaline Phosphatase Total Protein Albumin Albumin/Globulin Ratio Assessment and Plan Pt seen and examined. Agree with note by Spencer Jiménez. Will trend liver enzymes, obtain RUQ US. suspected ischemic hepatitis. further work-up management based on lab trends. Will follow.
--- NOTE | 2017-11-16 10:49 | Progress Note ---
Assessment and Plan Acute hypoxemic respiratory failure.. s/p cardiorespiratory arrest Subcutaneous emphysema DKA Severe Sepsis with septic shock Severe metabolic acidosis Acute renal failure ARDS Hypernatremia Encephalopathy, metabolic - VAP bundle addressed - Oxygenation much improved. Remains very tenuous. With small left apical PTX, decrease PEEP and follow clinically and radiographically. If any acute hemodynamic instability or increase on the size of the PTX on follow up imaging will plan on Hiemliech valve placement - Antibiotics per ID - Cardiology following - No urgent need for HD at this time - Vasopressor support to keep MAP>65 - Paralytics with TOF monitoring for another 24 hours, and review - Correct electrolyte abnormalities, give calcium - Continue steroids for vasopressor unresponsive shock - ABG and CXR qam and prn - Discontinue bicarbonate infusion, use crystalloids for intravascular volume expansion. - Once she is off vasopressor support, plan to use volume restrictive strategies - Nutritional support, trophic feeding - Insulin infusion for glycemic control Full code Prognosis is grave Discussed extensively with the hospitalist service Discussed with ID attending Discussed with her mother extensively The high probability of a clinically significant, sudden or life threatening deterioration of the [multiple] system(s) required my full and direct attention , intervention and personal management. The aggregate critical care time was [65 ] minutes. This time is in addition to time spent performing reported procedures but includes the following: [x] Data Review and interpretation [x] Patient assessment and monitoring of vital signs [x] Documentation [x] Medication orders and management Subjective Date of service: 11/16/17 Principal diagnosis: s/p cardiac arrest Interval history: Patient is seen today for: Acute Hypoxemic Resp Failure; ARDS; s/p cardiac arrest; Acute Encephalopathy Seen and examined at bedside; 24hour events reviewed; nursing and respiratory care staff consulted; no adverse overnight events reported to me; Objective Vital Signs - 12hr 11/15/17 11/15/17 11/15/17 23:00 23:08 23:15 Temperature Pulse Rate 81 81 81 Respiratory 28 H 28 H Rate Blood Pressure 96/57 99/62 O2 Sat by Pulse 94 93 Oximetry O2 Sat by Pulse Oximetry [ Bilateral Lower Lobe] 11/15/17 11/15/17 11/15/17 23:30 23:35 23:45 Temperature Pulse Rate 81 81 82 Respiratory 28 H 28 H 28 H Rate Blood Pressure 102/62 102/62 102/64 O2 Sat by Pulse 95 95 95 Oximetry O2 Sat by Pulse Oximetry [ Bilateral Lower Lobe] 11/15/17 11/16/17 11/16/17 23:50 00:00 00:12 Temperature 99.0 F Pulse Rate 81 81 82 Respiratory 28 H 28 H Rate Blood Pressure 103/64 103/64 O2 Sat by Pulse 95 95 95 Oximetry O2 Sat by Pulse Oximetry [ Bilateral Lower Lobe] 11/16/17 11/16/17 11/16/17 00:15 00:30 00:45 Temperature Pulse Rate 82 82 86 Respiratory 28 H 28 H 28 H Rate Blood Pressure 108/64 107/63 108/65 O2 Sat by Pulse 95 94 94 Oximetry O2 Sat by Pulse Oximetry [ Bilateral Lower Lobe] 11/16/17 11/16/17 11/16/17 00:57 01:00 01:15 Temperature 99.2 F Pulse Rate 86 86 84 Respiratory 28 H 28 H 28 H Rate Blood Pressure 108/65 108/65 110/68 O2 Sat by Pulse 95 94 Oximetry O2 Sat by Pulse 95 Oximetry [ Bilateral Lower Lobe] 11/16/17 11/16/17 11/16/17 01:30 01:45 02:00 Temperature Pulse Rate 82 82 81 Respiratory 28 H 28 H 28 H Rate Blood Pressure 117/72 118/75 112/68 O2 Sat by Pulse 94 93 94 Oximetry O2 Sat by Pulse Oximetry [ Bilateral Lower Lobe] 11/16/17 11/16/17 11/16/17 02:15 02:30 02:45 Temperature Pulse Rate 82 80 83 Respiratory 28 H 28 H 28 H Rate Blood Pressure 120/77 121/78 118/77 O2 Sat by Pulse 92 93 93 Oximetry O2 Sat by Pulse Oximetry [ Bilateral Lower Lobe] 11/16/17 11/16/17 11/16/17 03:00 03:15 03:30 Temperature Pulse Rate 82 83 85 Respiratory 28 H 28 H 28 H Rate Blood Pressure 113/69 105/64 103/55 O2 Sat by Pulse 92 92 92 Oximetry O2 Sat by Pulse Oximetry [ Bilateral Lower Lobe] 11/16/17 11/16/17 11/16/17 03:45 04:00 04:16 Temperature 99.6 F Pulse Rate 83 82 Respiratory 28 H 28 H Rate Blood Pressure 103/60 108/67 119/90 O2 Sat by Pulse 92 92 85 Oximetry O2 Sat by Pulse Oximetry [ Bilateral Lower Lobe] 11/16/17 11/16/17 11/16/17 04:30 04:45 05:00 Temperature Pulse Rate 81 78 77 Respiratory 28 H 28 H 28 H Rate Blood Pressure 102/67 106/66 106/70 O2 Sat by Pulse 95 94 93 Oximetry O2 Sat by Pulse Oximetry [ Bilateral Lower Lobe] 11/16/17 11/16/17 11/16/17 05:15 05:30 05:46 Temperature Pulse Rate 77 76 79 Respiratory 28 H 28 H 28 H Rate Blood Pressure 109/70 106/69 93/52 O2 Sat by Pulse 94 93 94 Oximetry O2 Sat by Pulse Oximetry [ Bilateral Lower Lobe] 11/16/17 11/16/17 11/16/17 06:00 06:15 06:30 Temperature Pulse Rate 81 78 77 Respiratory 28 H 28 H 28 H Rate Blood Pressure 92/45 99/60 106/68 O2 Sat by Pulse 93 94 96 Oximetry O2 Sat by Pulse Oximetry [ Bilateral Lower Lobe] 11/16/17 11/16/17 06:45 08:00 Temperature Pulse Rate 78 75 Respiratory 28 H Rate Blood Pressure 100/61 123/82 O2 Sat by Pulse 93 95 Oximetry O2 Sat by Pulse Oximetry [ Bilateral Lower Lobe] CBC and BMP: 11/16/17 04:40 11/16/17 04:40 ABG, PT/INR, D-dimer: ABG POC ABG pH 7.409 (7.35-7.45) 11/16/17 04:19 POC ABG pCO2 42.1 (35-45) 11/16/17 04:19 POC ABG pO2 66 (80-105) L 11/16/17 04:19 POC ABG HCO3 26.6 11/16/17 04:19 POC ABG Total CO2 28 11/16/17 04:19 POC ABG O2 Sat 93 11/16/17 04:19 PT/INR, D-dimer PT 20.8 Sec. (12.2-14.9) H 11/14/17 12:45 INR 1.68 (0.87-1.13) H 11/14/17 12:45 Abnormal lab findings: Abnormal Labs 11/10/17 11/10/17 11/10/17 19:54 20:18 20:18 WBC 39.8 H RBC 3.59 L Hgb Hct MCV 117 H MCH MCHC 27 L RDW Plt Count 469 H Seg Neuts % (Manual) 93.5 H Lymphocytes % (Manual) 3.0 L Seg Neutrophils # Man 37.2 H Lymphocytes # (Manual) Monocytes # (Manual) 1.0 H Basophils # (Manual) 0.2 H PT 18.8 H INR 1.48 H POC ABG pH POC ABG pCO2 POC ABG pO2 VBG pH Sodium Potassium Chloride Carbon Dioxide BUN Creatinine Glucose POC Glucose 488 H Lactic Acid Calcium Phosphorus Magnesium AST ALT Alkaline Phosphatase Total Creatine Kinase CK-MB (CK-2) Troponin T C-Reactive Protein Total Protein Albumin Triglycerides HDL Cholesterol TSH Urine WBC (Auto) 11/10/17 11/10/17 11/10/17 20:18 20:18 20:18 WBC RBC Hgb Hct MCV MCH MCHC RDW Plt Count Seg Neuts % (Manual) Lymphocytes % (Manual) Seg Neutrophils # Man Lymphocytes # (Manual) Monocytes # (Manual) Basophils # (Manual) PT INR POC ABG pH POC ABG pCO2 POC ABG pO2 VBG pH 6.763 L* Sodium 125 L Potassium 7.5 H* Chloride 82.9 L Carbon Dioxide 2 L* BUN 33 H Creatinine 1.8 H Glucose 976 H* POC Glucose Lactic Acid 3.00 H* Calcium 7.6 L Phosphorus Magnesium AST ALT Alkaline Phosphatase Total Creatine Kinase CK-MB (CK-2) Troponin T C-Reactive Protein Total Protein 6.2 L Albumin 3.5 L Triglycerides HDL Cholesterol TSH Urine WBC (Auto) 11/10/17 11/10/17 11/10/17 20:35 20:35 22:07 WBC RBC Hgb Hct MCV MCH MCHC RDW Plt Count Seg Neuts % (Manual) Lymphocytes % (Manual) Seg Neutrophils # Man Lymphocytes # (Manual) Monocytes # (Manual) Basophils # (Manual) PT INR POC ABG pH POC ABG pCO2 POC ABG pO2 VBG pH Sodium 124 L Potassium 7.6 H* Chloride 82.0 L Carbon Dioxide 3 L* BUN 33 H Creatinine 1.8 H Glucose 977 H* POC Glucose 481 H Lactic Acid Calcium 7.8 L Phosphorus 9.40 H Magnesium 2.70 H AST ALT Alkaline Phosphatase Total Creatine Kinase CK-MB (CK-2) Troponin T C-Reactive Protein Total Protein Albumin Triglycerides HDL Cholesterol TSH Urine WBC (Auto) 11/10/17 11/10/17 11/10/17 23:06 23:06 23:15 WBC RBC Hgb Hct MCV MCH MCHC RDW Plt Count Seg Neuts % (Manual) Lymphocytes % (Manual) Seg Neutrophils # Man Lymphocytes # (Manual) Monocytes # (Manual) Basophils # (Manual) PT INR POC ABG pH POC ABG pCO2 POC ABG pO2 VBG pH Sodium 133 L D Potassium 5.6 H D Chloride 97.1 L Carbon Dioxide 3 L* BUN 32 H Creatinine 1.6 H Glucose 664 H* POC Glucose Lactic Acid 2.30 H* Calcium 6.8 L Phosphorus Magnesium AST ALT Alkaline Phosphatase Total Creatine Kinase CK-MB (CK-2) Troponin T C-Reactive Protein Total Protein Albumin Triglycerides HDL Cholesterol TSH 15.990 H Urine WBC (Auto) 11/10/17 11/10/17 11/11/17 23:29 Unknown 00:01 WBC RBC Hgb Hct MCV MCH MCHC RDW Plt Count Seg Neuts % (Manual) Lymphocytes % (Manual) Seg Neutrophils # Man Lymphocytes # (Manual) Monocytes # (Manual) Basophils # (Manual) PT INR POC ABG pH POC ABG pCO2 POC ABG pO2 VBG pH 6.881 L* Sodium Potassium Chloride Carbon Dioxide BUN Creatinine Glucose POC Glucose 481 H Lactic Acid Calcium Phosphorus Magnesium AST ALT Alkaline Phosphatase Total Creatine Kinase CK-MB (CK-2) Troponin T C-Reactive Protein Total Protein Albumin Triglycerides HDL Cholesterol TSH Urine WBC (Auto) 8.0 H 11/11/17 11/11/17 11/11/17 00:01 00:46 00:46 WBC RBC Hgb Hct MCV MCH MCHC RDW Plt Count Seg Neuts % (Manual) Lymphocytes % (Manual) Seg Neutrophils # Man Lymphocytes # (Manual) Monocytes # (Manual) Basophils # (Manual) PT INR POC ABG pH POC ABG pCO2 POC ABG pO2 VBG pH Sodium 135 L Potassium Chloride Carbon Dioxide 3 L* 5 L* BUN 32 H 32 H Creatinine 1.5 H 1.5 H Glucose 579 H* 560 H* POC Glucose Lactic Acid 2.40 H* Calcium 6.9 L 6.8 L Phosphorus Magnesium AST ALT Alkaline Phosphatase Total Creatine Kinase CK-MB (CK-2) Troponin T C-Reactive Protein Total Protein Albumin Triglycerides HDL Cholesterol TSH Urine WBC (Auto) 11/11/17 11/11/17 11/11/17 00:58 02:19 02:21 WBC RBC Hgb Hct MCV MCH MCHC RDW Plt Count Seg Neuts % (Manual) Lymphocytes % (Manual) Seg Neutrophils # Man Lymphocytes # (Manual) Monocytes # (Manual) Basophils # (Manual) PT INR POC ABG pH POC ABG pCO2 POC ABG pO2 VBG pH Sodium Potassium Chloride Carbon Dioxide BUN Creatinine Glucose POC Glucose > 500 H < 40 L 457 H Lactic Acid Calcium Phosphorus Magnesium AST ALT Alkaline Phosphatase Total Creatine Kinase CK-MB (CK-2) Troponin T C-Reactive Protein Total Protein Albumin Triglycerides HDL Cholesterol TSH Urine WBC (Auto) 11/11/17 11/11/17 11/11/17 03:31 03:45 03:45 WBC RBC Hgb Hct MCV MCH MCHC RDW Plt Count Seg Neuts % (Manual) Lymphocytes % (Manual) Seg Neutrophils # Man Lymphocytes # (Manual) Monocytes # (Manual) Basophils # (Manual) PT INR POC ABG pH POC ABG pCO2 POC ABG pO2 VBG pH Sodium 147 H D Potassium 2.9 L* D Chloride Carbon Dioxide 11 L BUN 31 H Creatinine 1.8 H Glucose 587 H* POC Glucose 436 H Lactic Acid 9.50 H* Calcium 6.4 L Phosphorus Magnesium AST ALT Alkaline Phosphatase Total Creatine Kinase CK-MB (CK-2) Troponin T C-Reactive Protein Total Protein Albumin Triglycerides HDL Cholesterol TSH Urine WBC (Auto) 11/11/17 11/11/17 11/11/17 04:16 04:45 05:50 WBC RBC Hgb Hct MCV MCH MCHC RDW Plt Count Seg Neuts % (Manual) Lymphocytes % (Manual) Seg Neutrophils # Man Lymphocytes # (Manual) Monocytes # (Manual) Basophils # (Manual) PT INR POC ABG pH 7.036 L POC ABG pCO2 POC ABG pO2 66 L VBG pH Sodium Potassium Chloride Carbon Dioxide BUN Creatinine Glucose POC Glucose 495 H > 500 H Lactic Acid Calcium Phosphorus Magnesium AST ALT Alkaline Phosphatase Total Creatine Kinase CK-MB (CK-2) Troponin T C-Reactive Protein Total Protein Albumin Triglycerides HDL Cholesterol TSH Urine WBC (Auto) 11/11/17 11/11/17 11/11/17 06:29 06:29 06:41 WBC RBC Hgb Hct MCV MCH MCHC RDW Plt Count Seg Neuts % (Manual) Lymphocytes % (Manual) Seg Neutrophils # Man Lymphocytes # (Manual) Monocytes # (Manual) Basophils # (Manual) PT INR POC ABG pH POC ABG pCO2 POC ABG pO2 VBG pH Sodium 149 H Potassium 3.0 L Chloride 109.5 H Carbon Dioxide 17 L BUN 31 H Creatinine 1.7 H Glucose 407 H POC Glucose 387 H Lactic Acid 2.60 H* Calcium 6.2 L Phosphorus Magnesium AST ALT Alkaline Phosphatase Total Creatine Kinase CK-MB (CK-2) Troponin T C-Reactive Protein Total Protein Albumin Triglycerides HDL Cholesterol TSH Urine WBC (Auto) 11/11/17 11/11/17 11/11/17 07:05 07:07 07:07 WBC RBC Hgb Hct MCV MCH MCHC RDW Plt Count Seg Neuts % (Manual) Lymphocytes % (Manual) Seg Neutrophils # Man Lymphocytes # (Manual) Monocytes # (Manual) Basophils # (Manual) PT INR POC ABG pH POC ABG pCO2 POC ABG pO2 VBG pH Sodium 151 H Potassium 3.0 L Chloride 107.5 H Carbon Dioxide 11 L BUN 31 H Creatinine 1.8 H Glucose 541 H* POC Glucose 378 H Lactic Acid Calcium 6.5 L Phosphorus Magnesium AST ALT Alkaline Phosphatase Total Creatine Kinase 686 H CK-MB (CK-2) 19.6 H Troponin T C-Reactive Protein Total Protein Albumin Triglycerides HDL Cholesterol TSH Urine WBC (Auto) 11/11/17 11/11/17 11/11/17 08:50 08:52 09:57 WBC RBC Hgb Hct MCV MCH MCHC RDW Plt Count Seg Neuts % (Manual) Lymphocytes % (Manual) Seg Neutrophils # Man Lymphocytes # (Manual) Monocytes # (Manual) Basophils # (Manual) PT INR POC ABG pH 7.175 L POC ABG pCO2 45.1 H POC ABG pO2 33 L VBG pH Sodium Potassium Chloride Carbon Dioxide BUN Creatinine Glucose POC Glucose 256 H 232 H Lactic Acid Calcium Phosphorus Magnesium AST ALT Alkaline Phosphatase Total Creatine Kinase CK-MB (CK-2) Troponin T C-Reactive Protein Total Protein Albumin Triglycerides HDL Cholesterol TSH Urine WBC (Auto) 11/11/17 11/11/17 11/11/17 10:45 10:45 11:08 WBC RBC Hgb Hct MCV MCH 33 H MCHC RDW Plt Count Seg Neuts % (Manual) Lymphocytes % (Manual) Seg Neutrophils # Man Lymphocytes # (Manual) Monocytes # (Manual) Basophils # (Manual) PT INR POC ABG pH 7.157 L POC ABG pCO2 52.2 H POC ABG pO2 31 L VBG pH Sodium Potassium Chloride Carbon Dioxide BUN Creatinine Glucose POC Glucose Lactic Acid Calcium Phosphorus Magnesium AST ALT Alkaline Phosphatase Total Creatine Kinase 1041 H CK-MB (CK-2) 31.9 H Troponin T 0.041 H D C-Reactive Protein Total Protein Albumin Triglycerides 510 H HDL Cholesterol 26 L TSH Urine WBC (Auto) 11/11/17 11/11/17 11/11/17 11:12 12:33 12:38 WBC RBC Hgb Hct MCV MCH MCHC RDW Plt Count Seg Neuts % (Manual) Lymphocytes % (Manual) Seg Neutrophils # Man Lymphocytes # (Manual) Monocytes # (Manual) Basophils # (Manual) PT INR POC ABG pH 7.258 L POC ABG pCO2 94.5 H POC ABG pO2 50 L VBG pH Sodium Potassium Chloride Carbon Dioxide BUN Creatinine Glucose POC Glucose 246 H 265 H Lactic Acid Calcium Phosphorus Magnesium AST ALT Alkaline Phosphatase Total Creatine Kinase CK-MB (CK-2) Troponin T C-Reactive Protein Total Protein Albumin Triglycerides HDL Cholesterol TSH Urine WBC (Auto) 11/11/17 11/11/17 11/11/17 12:40 12:40 12:40 WBC RBC Hgb Hct MCV MCH MCHC RDW Plt Count Seg Neuts % (Manual) Lymphocytes % (Manual) Seg Neutrophils # Man Lymphocytes # (Manual) Monocytes # (Manual) Basophils # (Manual) PT INR POC ABG pH POC ABG pCO2 POC ABG pO2 VBG pH Sodium 171 H* D Potassium 2.9 L* Chloride 118.2 H Carbon Dioxide 39 H D BUN 28 H Creatinine 1.8 H Glucose 301 H POC Glucose Lactic Acid 11.70 H* Calcium 11.4 H D Phosphorus Magnesium AST ALT Alkaline Phosphatase Total Creatine Kinase CK-MB (CK-2) Troponin T C-Reactive Protein 7.40 H Total Protein Albumin Triglycerides HDL Cholesterol TSH Urine WBC (Auto) 11/11/17 11/11/17 11/11/17 13:58 14:53 15:42 WBC RBC Hgb Hct MCV MCH MCHC RDW Plt Count Seg Neuts % (Manual) Lymphocytes % (Manual) Seg Neutrophils # Man Lymphocytes # (Manual) Monocytes # (Manual) Basophils # (Manual) PT INR POC ABG pH POC ABG pCO2 POC ABG pO2 VBG pH Sodium Potassium Chloride Carbon Dioxide BUN Creatinine Glucose POC Glucose 244 H 273 H 311 H Lactic Acid Calcium Phosphorus Magnesium AST ALT Alkaline Phosphatase Total Creatine Kinase CK-MB (CK-2) Troponin T C-Reactive Protein Total Protein Albumin Triglycerides HDL Cholesterol TSH Urine WBC (Auto) 11/11/17 11/11/17 11/11/17 16:08 17:09 18:41 WBC RBC Hgb Hct MCV MCH MCHC RDW Plt Count Seg Neuts % (Manual) Lymphocytes % (Manual) Seg Neutrophils # Man Lymphocytes # (Manual) Monocytes # (Manual) Basophils # (Manual) PT INR POC ABG pH POC ABG pCO2 POC ABG pO2 VBG pH Sodium 153 H D Potassium 3.3 L Chloride 112.6 H Carbon Dioxide 14 L D BUN 30 H Creatinine 2.1 H Glucose 301 H POC Glucose 337 H 262 H Lactic Acid Calcium 7.8 L D Phosphorus Magnesium AST ALT Alkaline Phosphatase Total Creatine Kinase CK-MB (CK-2) Troponin T C-Reactive Protein Total Protein Albumin Triglycerides HDL Cholesterol TSH Urine WBC (Auto) 11/11/17 11/11/17 11/11/17 19:49 20:14 20:25 WBC RBC Hgb Hct MCV MCH MCHC RDW Plt Count Seg Neuts % (Manual) Lymphocytes % (Manual) Seg Neutrophils # Man Lymphocytes # (Manual) Monocytes # (Manual) Basophils # (Manual) PT INR POC ABG pH POC ABG pCO2 POC ABG pO2 VBG pH Sodium 154 H Potassium 2.7 L* Chloride 110.8 H Carbon Dioxide 20 L BUN 31 H Creatinine 2.4 H Glucose 261 H POC Glucose 281 H 265 H Lactic Acid Calcium 7.9 L Phosphorus Magnesium AST ALT Alkaline Phosphatase Total Creatine Kinase CK-MB (CK-2) Troponin T C-Reactive Protein Total Protein Albumin Triglycerides HDL Cholesterol TSH Urine WBC (Auto) 11/11/17 11/11/17 11/11/17 20:53 21:55 23:17 WBC RBC Hgb Hct MCV MCH MCHC RDW Plt Count Seg Neuts % (Manual) Lymphocytes % (Manual) Seg Neutrophils # Man Lymphocytes # (Manual) Monocytes # (Manual) Basophils # (Manual) PT INR POC ABG pH POC ABG pCO2 POC ABG pO2 VBG pH Sodium Potassium Chloride Carbon Dioxide BUN Creatinine Glucose POC Glucose 274 H 209 H 180 H Lactic Acid Calcium Phosphorus Magnesium AST ALT Alkaline Phosphatase Total Creatine Kinase CK-MB (CK-2) Troponin T C-Reactive Protein Total Protein Albumin Triglycerides HDL Cholesterol TSH Urine WBC (Auto) 11/12/17 11/12/17 11/12/17 00:09 00:26 01:12 WBC RBC Hgb Hct MCV MCH MCHC RDW Plt Count Seg Neuts % (Manual) Lymphocytes % (Manual) Seg Neutrophils # Man Lymphocytes # (Manual) Monocytes # (Manual) Basophils # (Manual) PT INR POC ABG pH POC ABG pCO2 POC ABG pO2 VBG pH Sodium 154 H Potassium Chloride 113.1 H Carbon Dioxide 17 L BUN 34 H Creatinine 2.5 H Glucose 144 H POC Glucose 176 H 148 H Lactic Acid Calcium 7.7 L Phosphorus Magnesium AST ALT Alkaline Phosphatase Total Creatine Kinase CK-MB (CK-2) Troponin T C-Reactive Protein Total Protein Albumin Triglycerides HDL Cholesterol TSH Urine WBC (Auto) 11/12/17 11/12/17 11/12/17 02:05 03:27 04:22 WBC RBC Hgb Hct MCV MCH MCHC RDW Plt Count Seg Neuts % (Manual) Lymphocytes % (Manual) Seg Neutrophils # Man Lymphocytes # (Manual) Monocytes # (Manual) Basophils # (Manual) PT INR POC ABG pH POC ABG pCO2 POC ABG pO2 VBG pH Sodium Potassium Chloride Carbon Dioxide BUN Creatinine Glucose POC Glucose 148 H 156 H 137 H Lactic Acid Calcium Phosphorus Magnesium AST ALT Alkaline Phosphatase Total Creatine Kinase CK-MB (CK-2) Troponin T C-Reactive Protein Total Protein Albumin Triglycerides HDL Cholesterol TSH Urine WBC (Auto) 11/12/17 11/12/17 11/12/17 04:42 05:06 05:34 WBC RBC Hgb Hct MCV MCH MCHC RDW Plt Count Seg Neuts % (Manual) Lymphocytes % (Manual) Seg Neutrophils # Man Lymphocytes # (Manual) Monocytes # (Manual) Basophils # (Manual) PT INR POC ABG pH POC ABG pCO2 POC ABG pO2 56 L VBG pH Sodium 154 H Potassium 3.2 L D Chloride 109.8 H Carbon Dioxide BUN 32 H Creatinine 2.6 H Glucose 157 H POC Glucose 163 H Lactic Acid Calcium 7.3 L Phosphorus Magnesium AST ALT Alkaline Phosphatase Total Creatine Kinase CK-MB (CK-2) Troponin T C-Reactive Protein Total Protein Albumin Triglycerides HDL Cholesterol TSH Urine WBC (Auto) 11/12/17 11/12/17 11/12/17 05:42 06:23 06:36 WBC RBC Hgb Hct MCV MCH MCHC RDW Plt Count Seg Neuts % (Manual) Lymphocytes % (Manual) Seg Neutrophils # Man Lymphocytes # (Manual) Monocytes # (Manual) Basophils # (Manual) PT INR POC ABG pH POC ABG pCO2 POC ABG pO2 VBG pH Sodium Potassium Chloride Carbon Dioxide BUN Creatinine Glucose POC Glucose 166 H 171 H 181 H Lactic Acid Calcium Phosphorus Magnesium AST ALT Alkaline Phosphatase Total Creatine Kinase CK-MB (CK-2) Troponin T C-Reactive Protein Total Protein Albumin Triglycerides HDL Cholesterol TSH Urine WBC (Auto) 11/12/17 11/12/17 11/12/17 07:07 08:16 09:10 WBC RBC Hgb Hct MCV MCH MCHC RDW Plt Count Seg Neuts % (Manual) Lymphocytes % (Manual) Seg Neutrophils # Man Lymphocytes # (Manual) Monocytes # (Manual) Basophils # (Manual) PT INR POC ABG pH POC ABG pCO2 POC ABG pO2 VBG pH Sodium Potassium Chloride Carbon Dioxide BUN Creatinine Glucose POC Glucose 170 H 171 H 170 H Lactic Acid Calcium Phosphorus Magnesium AST ALT Alkaline Phosphatase Total Creatine Kinase CK-MB (CK-2) Troponin T C-Reactive Protein Total Protein Albumin Triglycerides HDL Cholesterol TSH Urine WBC (Auto) 11/12/17 11/12/17 11/12/17 11:12 12:13 12:13 WBC RBC Hgb Hct MCV MCH MCHC RDW Plt Count Seg Neuts % (Manual) Lymphocytes % (Manual) Seg Neutrophils # Man Lymphocytes # (Manual) Monocytes # (Manual) Basophils # (Manual) PT INR POC ABG pH 7.316 L POC ABG pCO2 57.4 H POC ABG pO2 46 L VBG pH Sodium Potassium Chloride Carbon Dioxide BUN Creatinine Glucose POC Glucose 145 H 123 H Lactic Acid Calcium Phosphorus Magnesium AST ALT Alkaline Phosphatase Total Creatine Kinase CK-MB (CK-2) Troponin T C-Reactive Protein Total Protein Albumin Triglycerides HDL Cholesterol TSH Urine WBC (Auto) 11/12/17 11/12/17 11/12/17 14:52 18:05 18:05 WBC 29.0 H RBC 3.15 L Hgb Hct 29.4 L D MCV MCH MCHC 35 H RDW Plt Count 115 L Seg Neuts % (Manual) 90.0 H Lymphocytes % (Manual) 6.0 L Seg Neutrophils # Man 26.1 H Lymphocytes # (Manual) Monocytes # (Manual) 1.2 H Basophils # (Manual) PT INR POC ABG pH POC ABG pCO2 POC ABG pO2 VBG pH Sodium 148 H Potassium Chloride Carbon Dioxide BUN 34 H Creatinine 2.9 H Glucose 147 H POC Glucose 139 H Lactic Acid Calcium 6.6 L Phosphorus Magnesium AST ALT Alkaline Phosphatase Total Creatine Kinase CK-MB (CK-2) Troponin T C-Reactive Protein Total Protein Albumin Triglycerides HDL Cholesterol TSH Urine WBC (Auto) 11/12/17 11/12/17 11/12/17 18:19 18:23 18:45 WBC RBC Hgb Hct MCV MCH MCHC RDW Plt Count Seg Neuts % (Manual) Lymphocytes % (Manual) Seg Neutrophils # Man Lymphocytes # (Manual) Monocytes # (Manual) Basophils # (Manual) PT INR POC ABG pH 7.248 L 7.253 L POC ABG pCO2 61.4 H 58.2 H POC ABG pO2 24 L 56 L VBG pH Sodium Potassium Chloride Carbon Dioxide BUN Creatinine Glucose POC Glucose 154 H Lactic Acid Calcium Phosphorus Magnesium AST ALT Alkaline Phosphatase Total Creatine Kinase CK-MB (CK-2) Troponin T C-Reactive Protein Total Protein Albumin Triglycerides HDL Cholesterol TSH Urine WBC (Auto) 11/12/17 11/12/17 11/12/17 19:08 20:12 21:14 WBC RBC Hgb Hct MCV MCH MCHC RDW Plt Count Seg Neuts % (Manual) Lymphocytes % (Manual) Seg Neutrophils # Man Lymphocytes # (Manual) Monocytes # (Manual) Basophils # (Manual) PT INR POC ABG pH POC ABG pCO2 POC ABG pO2 VBG pH Sodium Potassium Chloride Carbon Dioxide BUN Creatinine Glucose POC Glucose 154 H 155 H 130 H Lactic Acid Calcium Phosphorus Magnesium AST ALT Alkaline Phosphatase Total Creatine Kinase CK-MB (CK-2) Troponin T C-Reactive Protein Total Protein Albumin Triglycerides HDL Cholesterol TSH Urine WBC (Auto) 11/12/17 11/12/17 11/13/17 21:30 22:08 01:17 WBC RBC Hgb Hct MCV MCH MCHC RDW Plt Count Seg Neuts % (Manual) Lymphocytes % (Manual) Seg Neutrophils # Man Lymphocytes # (Manual) Monocytes # (Manual) Basophils # (Manual) PT INR POC ABG pH 7.220 L POC ABG pCO2 57.4 H POC ABG pO2 50 L VBG pH Sodium 146 H Potassium Chloride Carbon Dioxide BUN 35 H Creatinine 3.2 H Glucose 120 H POC Glucose 108 H Lactic Acid Calcium 6.3 L Phosphorus Magnesium AST ALT Alkaline Phosphatase Total Creatine Kinase CK-MB (CK-2) Troponin T C-Reactive Protein Total Protein Albumin Triglycerides HDL Cholesterol TSH Urine WBC (Auto) 11/13/17 11/13/17 11/13/17 01:30 01:33 03:31 WBC RBC Hgb Hct MCV MCH MCHC RDW Plt Count Seg Neuts % (Manual) Lymphocytes % (Manual) Seg Neutrophils # Man Lymphocytes # (Manual) Monocytes # (Manual) Basophils # (Manual) PT INR POC ABG pH POC ABG pCO2 POC ABG pO2 VBG pH Sodium 146 H Potassium Chloride Carbon Dioxide BUN 36 H Creatinine 3.4 H Glucose 143 H POC Glucose 117 H 123 H Lactic Acid Calcium 6.0 L Phosphorus Magnesium AST ALT Alkaline Phosphatase Total Creatine Kinase CK-MB (CK-2) Troponin T C-Reactive Protein Total Protein Albumin Triglycerides HDL Cholesterol TSH Urine WBC (Auto) 11/13/17 11/13/17 11/13/17 04:25 05:14 06:00 WBC RBC Hgb Hct MCV MCH MCHC RDW Plt Count Seg Neuts % (Manual) Lymphocytes % (Manual) Seg Neutrophils # Man Lymphocytes # (Manual) Monocytes # (Manual) Basophils # (Manual) PT INR POC ABG pH POC ABG pCO2 POC ABG pO2 VBG pH Sodium Potassium Chloride Carbon Dioxide BUN 39 H Creatinine 3.8 H Glucose 182 H POC Glucose 161 H 163 H Lactic Acid Calcium 6.6 L Phosphorus 4.90 H Magnesium 1.20 L AST ALT Alkaline Phosphatase Total Creatine Kinase CK-MB (CK-2) Troponin T C-Reactive Protein Total Protein Albumin Triglycerides HDL Cholesterol TSH Urine WBC (Auto) 11/13/17 11/13/17 11/13/17 06:00 06:07 06:24 WBC 32.3 H RBC 3.40 L Hgb Hct MCV MCH MCHC RDW Plt Count 99 L Seg Neuts % (Manual) Lymphocytes % (Manual) Seg Neutrophils # Man Lymphocytes # (Manual) Monocytes # (Manual) Basophils # (Manual) PT INR POC ABG pH 7.199 L POC ABG pCO2 58.3 H POC ABG pO2 70 L VBG pH Sodium Potassium Chloride Carbon Dioxide BUN Creatinine Glucose POC Glucose 171 H Lactic Acid Calcium Phosphorus Magnesium AST ALT Alkaline Phosphatase Total Creatine Kinase CK-MB (CK-2) Troponin T C-Reactive Protein Total Protein Albumin Triglycerides HDL Cholesterol TSH Urine WBC (Auto) 11/13/17 11/13/17 11/13/17 07:42 08:55 09:25 WBC RBC Hgb Hct MCV MCH MCHC RDW Plt Count Seg Neuts % (Manual) Lymphocytes % (Manual) Seg Neutrophils # Man Lymphocytes # (Manual) Monocytes # (Manual) Basophils # (Manual) PT INR POC ABG pH POC ABG pCO2 POC ABG pO2 VBG pH Sodium Potassium Chloride Carbon Dioxide BUN Creatinine Glucose POC Glucose 132 H 143 H 123 H Lactic Acid Calcium Phosphorus Magnesium AST ALT Alkaline Phosphatase Total Creatine Kinase CK-MB (CK-2) Troponin T C-Reactive Protein Total Protein Albumin Triglycerides HDL Cholesterol TSH Urine WBC (Auto) 11/13/17 11/13/17 11/13/17 10:01 10:30 11:06 WBC RBC Hgb Hct MCV MCH MCHC RDW Plt Count Seg Neuts % (Manual) Lymphocytes % (Manual) Seg Neutrophils # Man Lymphocytes # (Manual) Monocytes # (Manual) Basophils # (Manual) PT INR POC ABG pH POC ABG pCO2 POC ABG pO2 VBG pH Sodium Potassium Chloride Carbon Dioxide BUN 41 H Creatinine 4.0 H Glucose 127 H POC Glucose 122 H 129 H Lactic Acid Calcium 6.6 L Phosphorus Magnesium AST ALT Alkaline Phosphatase Total Creatine Kinase CK-MB (CK-2) Troponin T C-Reactive Protein Total Protein Albumin Triglycerides HDL Cholesterol TSH Urine WBC (Auto) 11/13/17 11/13/17 11/13/17 12:01 12:08 14:59 WBC RBC Hgb Hct MCV MCH MCHC RDW Plt Count Seg Neuts % (Manual) Lymphocytes % (Manual) Seg Neutrophils # Man Lymphocytes # (Manual) Monocytes # (Manual) Basophils # (Manual) PT INR POC ABG pH 7.307 L POC ABG pCO2 52.9 H POC ABG pO2 VBG pH Sodium Potassium Chloride Carbon Dioxide BUN Creatinine Glucose POC Glucose 122 H 112 H Lactic Acid Calcium Phosphorus Magnesium AST ALT Alkaline Phosphatase Total Creatine Kinase CK-MB (CK-2) Troponin T C-Reactive Protein Total Protein Albumin Triglycerides HDL Cholesterol TSH Urine WBC (Auto) 11/13/17 11/13/17 11/13/17 16:15 17:58 19:08 WBC RBC Hgb Hct MCV MCH MCHC RDW Plt Count Seg Neuts % (Manual) Lymphocytes % (Manual) Seg Neutrophils # Man Lymphocytes # (Manual) Monocytes # (Manual) Basophils # (Manual) PT INR POC ABG pH POC ABG pCO2 POC ABG pO2 VBG pH Sodium Potassium 5.1 H D Chloride Carbon Dioxide BUN 44 H Creatinine 4.3 H Glucose 117 H POC Glucose 128 H 110 H Lactic Acid Calcium 7.0 L Phosphorus Magnesium AST ALT Alkaline Phosphatase Total Creatine Kinase CK-MB (CK-2) Troponin T C-Reactive Protein Total Protein Albumin Triglycerides HDL Cholesterol TSH Urine WBC (Auto) 11/13/17 11/13/17 11/13/17 19:59 20:22 21:05 WBC RBC Hgb Hct MCV MCH MCHC RDW Plt Count Seg Neuts % (Manual) Lymphocytes % (Manual) Seg Neutrophils # Man Lymphocytes # (Manual) Monocytes # (Manual) Basophils # (Manual) PT INR POC ABG pH POC ABG pCO2 POC ABG pO2 VBG pH Sodium Potassium Chloride Carbon Dioxide BUN 48 H Creatinine 4.5 H Glucose 181 H POC Glucose 180 H 134 H Lactic Acid Calcium 7.0 L Phosphorus Magnesium AST ALT Alkaline Phosphatase Total Creatine Kinase CK-MB (CK-2) Troponin T C-Reactive Protein Total Protein Albumin Triglycerides HDL Cholesterol TSH Urine WBC (Auto) 11/13/17 11/13/17 11/14/17 22:04 23:08 00:08 WBC RBC Hgb Hct MCV MCH MCHC RDW Plt Count Seg Neuts % (Manual) Lymphocytes % (Manual) Seg Neutrophils # Man Lymphocytes # (Manual) Monocytes # (Manual) Basophils # (Manual) PT INR POC ABG pH POC ABG pCO2 POC ABG pO2 VBG pH Sodium Potassium Chloride Carbon Dioxide BUN Creatinine Glucose POC Glucose 135 H 143 H 121 H Lactic Acid Calcium Phosphorus Magnesium AST ALT Alkaline Phosphatase Total Creatine Kinase CK-MB (CK-2) Troponin T C-Reactive Protein Total Protein Albumin Triglycerides HDL Cholesterol TSH Urine WBC (Auto) 11/14/17 11/14/17 11/14/17 00:37 01:07 01:27 WBC RBC Hgb Hct MCV MCH MCHC RDW Plt Count Seg Neuts % (Manual) Lymphocytes % (Manual) Seg Neutrophils # Man Lymphocytes # (Manual) Monocytes # (Manual) Basophils # (Manual) PT INR POC ABG pH 7.308 L POC ABG pCO2 POC ABG pO2 161 H VBG pH Sodium Potassium 5.2 H Chloride Carbon Dioxide BUN 49 H Creatinine 4.6 H Glucose 123 H POC Glucose 106 H Lactic Acid Calcium 6.5 L Phosphorus Magnesium AST ALT Alkaline Phosphatase Total Creatine Kinase CK-MB (CK-2) Troponin T C-Reactive Protein Total Protein Albumin Triglycerides HDL Cholesterol TSH Urine WBC (Auto) 11/14/17 11/14/17 11/14/17 02:20 03:09 04:00 WBC RBC Hgb Hct MCV MCH MCHC RDW Plt Count Seg Neuts % (Manual) Lymphocytes % (Manual) Seg Neutrophils # Man Lymphocytes # (Manual) Monocytes # (Manual) Basophils # (Manual) PT INR POC ABG pH POC ABG pCO2 POC ABG pO2 VBG pH Sodium Potassium 5.5 H Chloride Carbon Dioxide BUN 51 H Creatinine 4.5 H Glucose 181 H POC Glucose 130 H 126 H Lactic Acid Calcium 6.6 L Phosphorus Magnesium AST ALT Alkaline Phosphatase Total Creatine Kinase CK-MB (CK-2) Troponin T C-Reactive Protein Total Protein Albumin Triglycerides HDL Cholesterol TSH Urine WBC (Auto) 11/14/17 11/14/17 11/14/17 04:00 04:36 06:29 WBC 31.6 H RBC 3.39 L Hgb Hct MCV MCH MCHC RDW 15.3 H Plt Count 87 L Seg Neuts % (Manual) Lymphocytes % (Manual) Seg Neutrophils # Man Lymphocytes # (Manual) Monocytes # (Manual) Basophils # (Manual) PT INR POC ABG pH POC ABG pCO2 POC ABG pO2 VBG pH Sodium Potassium Chloride Carbon Dioxide BUN Creatinine Glucose POC Glucose 135 H 166 H Lactic Acid Calcium Phosphorus Magnesium AST ALT Alkaline Phosphatase Total Creatine Kinase CK-MB (CK-2) Troponin T C-Reactive Protein Total Protein Albumin Triglycerides HDL Cholesterol TSH Urine WBC (Auto) 11/14/17 11/14/17 11/14/17 12:02 12:45 12:45 WBC RBC Hgb Hct MCV MCH MCHC RDW Plt Count Seg Neuts % (Manual) Lymphocytes % (Manual) Seg Neutrophils # Man Lymphocytes # (Manual) Monocytes # (Manual) Basophils # (Manual) PT 20.8 H INR 1.68 H POC ABG pH POC ABG pCO2 POC ABG pO2 VBG pH Sodium Potassium 5.5 H Chloride Carbon Dioxide 19 L BUN 58 H Creatinine 4.8 H Glucose 313 H POC Glucose 222 H Lactic Acid Calcium 6.4 L Phosphorus Magnesium AST ALT Alkaline Phosphatase Total Creatine Kinase CK-MB (CK-2) Troponin T C-Reactive Protein Total Protein Albumin Triglycerides HDL Cholesterol TSH Urine WBC (Auto) 11/14/17 11/14/17 11/14/17 16:34 18:12 23:15 WBC RBC Hgb Hct MCV MCH MCHC RDW Plt Count Seg Neuts % (Manual) Lymphocytes % (Manual) Seg Neutrophils # Man Lymphocytes # (Manual) Monocytes # (Manual) Basophils # (Manual) PT INR POC ABG pH POC ABG pCO2 POC ABG pO2 VBG pH Sodium Potassium Chloride Carbon Dioxide 17 L BUN 63 H Creatinine 5.1 H Glucose 368 H POC Glucose 381 H 434 H Lactic Acid Calcium 6.4 L Phosphorus Magnesium AST ALT Alkaline Phosphatase Total Creatine Kinase CK-MB (CK-2) Troponin T C-Reactive Protein Total Protein Albumin Triglycerides HDL Cholesterol TSH Urine WBC (Auto) 11/14/17 11/15/17 11/15/17 Unknown 00:51 04:23 WBC RBC Hgb Hct MCV MCH MCHC RDW Plt Count Seg Neuts % (Manual) Lymphocytes % (Manual) Seg Neutrophils # Man Lymphocytes # (Manual) Monocytes # (Manual) Basophils # (Manual) PT INR POC ABG pH 7.287 L POC ABG pCO2 POC ABG pO2 141 H VBG pH Sodium Potassium Chloride Carbon Dioxide BUN Creatinine Glucose POC Glucose 415 H Lactic Acid 2.80 H* Calcium Phosphorus Magnesium AST ALT Alkaline Phosphatase Total Creatine Kinase CK-MB (CK-2) Troponin T C-Reactive Protein Total Protein Albumin Triglycerides HDL Cholesterol TSH Urine WBC (Auto) 11/15/17 11/15/17 11/15/17 05:00 05:43 10:00 WBC 12.0 H RBC 2.23 L Hgb 7.2 L D Hct 21.7 L D MCV MCH MCHC RDW Plt Count 64 L Seg Neuts % (Manual) 79.0 H Lymphocytes % (Manual) 4.0 L Seg Neutrophils # Man 9.5 H Lymphocytes # (Manual) 0.5 L Monocytes # (Manual) Basophils # (Manual) PT INR POC ABG pH POC ABG pCO2 POC ABG pO2 VBG pH Sodium Potassium Chloride Carbon Dioxide 18 L BUN 73 H Creatinine 5.3 H Glucose 461 H POC Glucose 416 H Lactic Acid Calcium 6.7 L Phosphorus Magnesium AST ALT Alkaline Phosphatase Total Creatine Kinase CK-MB (CK-2) Troponin T C-Reactive Protein Total Protein Albumin Triglycerides HDL Cholesterol TSH Urine WBC (Auto) 11/15/17 11/15/17 11/15/17 10:00 12:24 18:42 WBC RBC Hgb Hct MCV MCH MCHC RDW Plt Count Seg Neuts % (Manual) Lymphocytes % (Manual) Seg Neutrophils # Man Lymphocytes # (Manual) Monocytes # (Manual) Basophils # (Manual) PT INR POC ABG pH POC ABG pCO2 POC ABG pO2 VBG pH Sodium Potassium Chloride Carbon Dioxide 21 L BUN 76 H Creatinine 5.7 H Glucose 386 H POC Glucose 374 H 343 H Lactic Acid Calcium 6.9 L Phosphorus Magnesium AST ALT Alkaline Phosphatase Total Creatine Kinase CK-MB (CK-2) Troponin T C-Reactive Protein Total Protein Albumin Triglycerides HDL Cholesterol TSH Urine WBC (Auto) 11/16/17 11/16/17 11/16/17 00:00 04:19 04:40 WBC RBC 2.60 L Hgb 8.5 L Hct 24.4 L MCV MCH 33 H MCHC 35 H RDW Plt Count 65 L Seg Neuts % (Manual) 92.0 H Lymphocytes % (Manual) 2.0 L Seg Neutrophils # Man 10.0 H Lymphocytes # (Manual) 0.2 L Monocytes # (Manual) Basophils # (Manual) PT INR POC ABG pH POC ABG pCO2 POC ABG pO2 66 L VBG pH Sodium Potassium Chloride Carbon Dioxide BUN Creatinine Glucose POC Glucose 205 H Lactic Acid Calcium Phosphorus Magnesium AST ALT Alkaline Phosphatase Total Creatine Kinase CK-MB (CK-2) Troponin T C-Reactive Protein Total Protein Albumin Triglycerides HDL Cholesterol TSH Urine WBC (Auto) 11/16/17 11/16/17 04:40 05:14 WBC RBC Hgb Hct MCV MCH MCHC RDW Plt Count Seg Neuts % (Manual) Lymphocytes % (Manual) Seg Neutrophils # Man Lymphocytes # (Manual) Monocytes # (Manual) Basophils # (Manual) PT INR POC ABG pH POC ABG pCO2 POC ABG pO2 VBG pH Sodium Potassium 3.2 L Chloride Carbon Dioxide BUN 48 H Creatinine 3.7 H Glucose 142 H POC Glucose 139 H Lactic Acid Calcium 8.0 L D Phosphorus Magnesium AST 2275 H ALT 647 H Alkaline Phosphatase 268 H Total Creatine Kinase 363 H CK-MB (CK-2) Troponin T C-Reactive Protein Total Protein 3.9 L Albumin 2.1 L Triglycerides HDL Cholesterol TSH Urine WBC (Auto) Allied health notes reviewed: RT
[2017-11-16] MEDS: ceFAZolin 2 GM in NACL 0.9% 100 ML IV SCH (10:50)
[2017-11-16] MEDS: PEPCID IV SCH (10:52)
[2017-11-16] MEDS: LANTUS SUB-Q SCH (10:53)
--- NOTE | 2017-11-16 13:24 | Consultation ---
History of Present Illness Consult date: 11/16/17 Requesting physician: MARIANA MANN Reason for Consult: anoxic brain injury History of present illness: This is a 37 yo woman with history of DM type 2, HTN, Hypothyroidism, presented to the ED via EMS after she was found by her mother at home on the floor and extremely lethargic. She was brought to the ED for evaluation and was subsequently diagnosed with DKA, bilateral PNA, septic shock, ARF and hyperkalemia. Upon transfer from ED to CCU, she became unresponsive and developed cardiopulmonary arrest. She was intubated and remains intubated. She subsequently had 3 more cardiac arrests on the same day. The patient has been unresponsive since that time. She remains on pressors, requires dialysis. A CT scan of the brain was performed on 11/11/17 and was unremarkable, with no acute changes. A repeat scan was performed on 11/15/17 and reveals diffuse brain edema, loss of santoyo-white matter boundaries, consistent with severe anoxic injury. Mother states that the patient was just diagnosed with diabetes one year ago. She has had 5 admissioins to various hospitals since that time. Mother also states that she manages the patient's insulin and makes sure that she takes it daily. Past History Past Medical History: diabetes, hypertension, hypothyroidism, other (non- compliance) Past Surgical History: No surgical history Social history: lives with family, other (unknown) Family history: diabetes, hypertension Medications and Allergies Allergies Allergy/AdvReac Type Severity Reaction Status Date / Time No Known Allergies Allergy Verified 08/11/17 19:45 Home Medications Medication Instructions Recorded Confirmed Last Taken Type Insulin NPH/Regular [NovoLIN 70/30] 18 unit SUB-Q BIDDIAB #1 vial 07/07/17 Unknown Rx Levothyroxine 200 mcg PO DAILY #30 07/07/17 Unknown Rx Protonix TAB 40 mg PO DAILY #30 07/07/17 Unknown Rx Active Meds: Active Medications Acetaminophen (Tylenol) 650 mg PO Q4H PRN PRN Reason: Pain MILD(1-3)/Fever >100.5/SCHUSTER Last Admin: 11/13/17 06:18 Dose: 650 mg Lipase/Protease/Amylase (Pancreaze Dr 10,500 Unit) 1 each FEEDTUBE PRN PRN PRN Reason: For Clogged Feeding Tube Dextrose (D50w (25gm) Syringe) 0 ml IV PRN PRN PRN Reason: Hypoglycemia Famotidine (Pepcid) 20 mg IV DAILY [facility] Last Admin: 11/16/17 10:52 Dose: 20 mg Hydrophilic Ointment (Vaseline Lip Therapy) 1 applic TP Q2HR PRN PRN Reason: Dry Lips Vasopressin 20 unit/ Sodium (Chloride) 101 mls @ 9.09 mls/hr IV TITR [facility]; Protocol Last Titration: 11/13/17 13:52 Dose: 0 units/min, 0 mls/hr Norepinephrine 8 mg/ Sodium (Chloride) 250 mls @ 3.75 mls/hr IV TITR [facility]; Protocol Last Titration: 11/16/17 11:03 Dose: 0 mcg/min, 0 mls/hr Epinephrine 8 mg/ Sodium (Chloride) 250 mls @ 3.75 mls/hr IV TITR [facility]; Protocol Last Titration: 11/13/17 15:00 Dose: 0 mcg/min, 0 mls/hr Dopamine HCl/Dextrose (Intropin Drip 800 Mg/D5w 250 Ml) 800 mg in 250 mls @ 2.381 mls/hr IV TITR [facility]; Protocol Last Titration: 11/11/17 21:07 Dose: 0 mcg/kg/min, 0 mls/hr Phenylephrine HCl 100 mg/ (Sodium Chloride) 100 mls @ 3 mls/hr IV TITR [facility]; Protocol Fentanyl Citrate (Fentanyl Drip Premix) 2,000 mcg in 100 mls @ 3.175 mls/hr IV TITR [facility]; Protocol Last Titration: 11/15/17 19:19 Dose: 0 mcg/kg/hr, 0 mls/hr Cisatracurium Besylate 10 mg/ (Sodium Chloride) 100 mls @ 38.1 mls/hr IV TITR [facility]; Protocol Last Titration: 11/15/17 08:52 Dose: 0 mcg/kg/min, 0 mls/hr Lactated Ringer's (Lactated Ringers) 1,000 mls @ 100 mls/hr IV DIRECT [facility] Last Admin: 11/16/17 04:49 Dose: 100 mls/hr Clindamycin HCl (Cleocin 600 Mg/50 Ml) 600 mg in 50 mls @ 100 mls/hr IV Q8H [facility] ; Protocol Last Admin: 11/16/17 10:50 Dose: 100 mls/hr Lorazepam 100 mg/ Sodium Chloride/ Miscellaneous Information 100 mls @ 1 mls/ hr IV TITR [facility]; Protocol Last Titration: 11/15/17 17:09 Dose: 0 mg/hr, 0 mls/hr Cefazolin Sodium 2 gm/ Sodium (Chloride) 100 mls @ 200 mls/hr IV Q24HR [facility] Last Admin: 11/16/17 10:50 Dose: 200 mls/hr Sodium Chloride (Nacl 0.9%) 100 mls @ 999 mls/hr IV RICARDO PRN PRN Reason: Hypotension Insulin Glargine (Lantus) 15 units SUB-Q QAMDIAB [facility] Last Admin: 11/16/17 10:53 Dose: 15 units Insulin Human Regular (Humulin R) 0 units SUB-Q Q6HR [facility]; Protocol Last Admin: 11/16/17 06:53 Dose: Not Given Levothyroxine Sodium (Synthroid) 100 mcg IV DAILY@0600 [facility] Last Admin: 11/16/17 06:52 Dose: 100 mcg Methylprednisolone Sodium Succinate (Solu-Medrol) 60 mg IV Q6HR [facility] Last Admin: 11/16/17 06:52 Dose: 60 mg Multi-Ingred Cream/Lotion/Oil/Oint (Artificial Tears Ophth Oint) 1 applic OU Q4HR PRN PRN Reason: Dry Eye(s) Ondansetron HCl (Zofran) 4 mg IV Q8H PRN PRN Reason: Nausea And Vomiting Simple Syrup (Simple Syrup) 15 ml FEEDTUBE PRN PRN PRN Reason: Hypoglycemia Simple Syrup (Simple Syrup) 30 ml FEEDTUBE PRN PRN PRN Reason: Hypoglycemia Sodium Bicarbonate (Sodium Bicarbonate) 325 mg FEEDTUBE PRN PRN PRN Reason: For Clogged Feeding Tube Sodium Chloride (Sodium Chloride Flush Syringe 10 Ml) 10 ml IV BID [facility] Last Admin: 11/16/17 07:05 Dose: Not Given Sodium Chloride (Sodium Chloride Flush Syringe 10 Ml) 10 ml IV PRN PRN PRN Reason: LINE FLUSH Last Admin: 11/15/17 18:25 Dose: 10 ml Sodium Chloride (Nacl 0.9% 500 Ml) 1 ml IV DIRECT [facility] Physical Examination - Vital Signs Vital Signs: Vital Signs Pulse Resp BP Pulse Ox 72 16 88/31 96 11/10/17 19:58 11/10/17 19:58 11/10/17 19:58 11/10/17 19:58 Patient is intubated, not sedated. Neurological exam - no spontaneous movement. Cranial nerves - pupils 4 mm bilateral, nonreactive. Eyes fixed midline. Face symmetric No corneal response No reaction to deep endotracheal suctioning. Motor - flaccid limbs bilaterally Reflexes - absent Sensory - no response to deep pain stimuli. no withdrawal. Results - Laboratory Findings CBC and BMP: 11/16/17 04:40 11/16/17 04:40 Abnormal Lab Findings: Abnormal Labs 11/10/17 11/10/17 11/10/17 19:54 20:18 20:18 WBC 39.8 H RBC 3.59 L Hgb Hct MCV 117 H MCH MCHC 27 L RDW Plt Count 469 H Seg Neuts % (Manual) 93.5 H Lymphocytes % (Manual) 3.0 L Seg Neutrophils # Man 37.2 H Lymphocytes # (Manual) Monocytes # (Manual) 1.0 H Basophils # (Manual) 0.2 H PT 18.8 H INR 1.48 H POC ABG pH POC ABG pCO2 POC ABG pO2 VBG pH Sodium Potassium Chloride Carbon Dioxide BUN Creatinine Glucose POC Glucose 488 H Lactic Acid Calcium Phosphorus Magnesium AST ALT Alkaline Phosphatase Total Creatine Kinase CK-MB (CK-2) Troponin T C-Reactive Protein Total Protein Albumin Triglycerides HDL Cholesterol TSH Urine WBC (Auto) 11/10/17 11/10/17 11/10/17 20:18 20:18 20:18 WBC RBC Hgb Hct MCV MCH MCHC RDW Plt Count Seg Neuts % (Manual) Lymphocytes % (Manual) Seg Neutrophils # Man Lymphocytes # (Manual) Monocytes # (Manual) Basophils # (Manual) PT INR POC ABG pH POC ABG pCO2 POC ABG pO2 VBG pH 6.763 L* Sodium 125 L Potassium 7.5 H* Chloride 82.9 L Carbon Dioxide 2 L* BUN 33 H Creatinine 1.8 H Glucose 976 H* POC Glucose Lactic Acid 3.00 H* Calcium 7.6 L Phosphorus Magnesium AST ALT Alkaline Phosphatase Total Creatine Kinase CK-MB (CK-2) Troponin T C-Reactive Protein Total Protein 6.2 L Albumin 3.5 L Triglycerides HDL Cholesterol TSH Urine WBC (Auto) 11/10/17 11/10/17 11/10/17 20:35 20:35 22:07 WBC RBC Hgb Hct MCV MCH MCHC RDW Plt Count Seg Neuts % (Manual) Lymphocytes % (Manual) Seg Neutrophils # Man Lymphocytes # (Manual) Monocytes # (Manual) Basophils # (Manual) PT INR POC ABG pH POC ABG pCO2 POC ABG pO2 VBG pH Sodium 124 L Potassium 7.6 H* Chloride 82.0 L Carbon Dioxide 3 L* BUN 33 H Creatinine 1.8 H Glucose 977 H* POC Glucose 481 H Lactic Acid Calcium 7.8 L Phosphorus 9.40 H Magnesium 2.70 H AST ALT Alkaline Phosphatase Total Creatine Kinase CK-MB (CK-2) Troponin T C-Reactive Protein Total Protein Albumin Triglycerides HDL Cholesterol TSH Urine WBC (Auto) 11/10/17 11/10/17 11/10/17 23:06 23:06 23:15 WBC RBC Hgb Hct MCV MCH MCHC RDW Plt Count Seg Neuts % (Manual) Lymphocytes % (Manual) Seg Neutrophils # Man Lymphocytes # (Manual) Monocytes # (Manual) Basophils # (Manual) PT INR POC ABG pH POC ABG pCO2 POC ABG pO2 VBG pH Sodium 133 L D Potassium 5.6 H D Chloride 97.1 L Carbon Dioxide 3 L* BUN 32 H Creatinine 1.6 H Glucose 664 H* POC Glucose Lactic Acid 2.30 H* Calcium 6.8 L Phosphorus Magnesium AST ALT Alkaline Phosphatase Total Creatine Kinase CK-MB (CK-2) Troponin T C-Reactive Protein Total Protein Albumin Triglycerides HDL Cholesterol TSH 15.990 H Urine WBC (Auto) 11/10/17 11/10/17 11/11/17 23:29 Unknown 00:01 WBC RBC Hgb Hct MCV MCH MCHC RDW Plt Count Seg Neuts % (Manual) Lymphocytes % (Manual) Seg Neutrophils # Man Lymphocytes # (Manual) Monocytes # (Manual) Basophils # (Manual) PT INR POC ABG pH POC ABG pCO2 POC ABG pO2 VBG pH 6.881 L* Sodium Potassium Chloride Carbon Dioxide BUN Creatinine Glucose POC Glucose 481 H Lactic Acid Calcium Phosphorus Magnesium AST ALT Alkaline Phosphatase Total Creatine Kinase CK-MB (CK-2) Troponin T C-Reactive Protein Total Protein Albumin Triglycerides HDL Cholesterol TSH Urine WBC (Auto) 8.0 H 11/11/17 11/11/17 11/11/17 00:01 00:46 00:46 WBC RBC Hgb Hct MCV MCH MCHC RDW Plt Count Seg Neuts % (Manual) Lymphocytes % (Manual) Seg Neutrophils # Man Lymphocytes # (Manual) Monocytes # (Manual) Basophils # (Manual) PT INR POC ABG pH POC ABG pCO2 POC ABG pO2 VBG pH Sodium 135 L Potassium Chloride Carbon Dioxide 3 L* 5 L* BUN 32 H 32 H Creatinine 1.5 H 1.5 H Glucose 579 H* 560 H* POC Glucose Lactic Acid 2.40 H* Calcium 6.9 L 6.8 L Phosphorus Magnesium AST ALT Alkaline Phosphatase Total Creatine Kinase CK-MB (CK-2) Troponin T C-Reactive Protein Total Protein Albumin Triglycerides HDL Cholesterol TSH Urine WBC (Auto) 11/11/17 11/11/17 11/11/17 00:58 02:19 02:21 WBC RBC Hgb Hct MCV MCH MCHC RDW Plt Count Seg Neuts % (Manual) Lymphocytes % (Manual) Seg Neutrophils # Man Lymphocytes # (Manual) Monocytes # (Manual) Basophils # (Manual) PT INR POC ABG pH POC ABG pCO2 POC ABG pO2 VBG pH Sodium Potassium Chloride Carbon Dioxide BUN Creatinine Glucose POC Glucose > 500 H < 40 L 457 H Lactic Acid Calcium Phosphorus Magnesium AST ALT Alkaline Phosphatase Total Creatine Kinase CK-MB (CK-2) Troponin T C-Reactive Protein Total Protein Albumin Triglycerides HDL Cholesterol TSH Urine WBC (Auto) 11/11/17 11/11/17 11/11/17 03:31 03:45 03:45 WBC RBC Hgb Hct MCV MCH MCHC RDW Plt Count Seg Neuts % (Manual) Lymphocytes % (Manual) Seg Neutrophils # Man Lymphocytes # (Manual) Monocytes # (Manual) Basophils # (Manual) PT INR POC ABG pH POC ABG pCO2 POC ABG pO2 VBG pH Sodium 147 H D Potassium 2.9 L* D Chloride Carbon Dioxide 11 L BUN 31 H Creatinine 1.8 H Glucose 587 H* POC Glucose 436 H Lactic Acid 9.50 H* Calcium 6.4 L Phosphorus Magnesium AST ALT Alkaline Phosphatase Total Creatine Kinase CK-MB (CK-2) Troponin T C-Reactive Protein Total Protein Albumin Triglycerides HDL Cholesterol TSH Urine WBC (Auto) 11/11/17 11/11/17 11/11/17 04:16 04:45 05:50 WBC RBC Hgb Hct MCV MCH MCHC RDW Plt Count Seg Neuts % (Manual) Lymphocytes % (Manual) Seg Neutrophils # Man Lymphocytes # (Manual) Monocytes # (Manual) Basophils # (Manual) PT INR POC ABG pH 7.036 L POC ABG pCO2 POC ABG pO2 66 L VBG pH Sodium Potassium Chloride Carbon Dioxide BUN Creatinine Glucose POC Glucose 495 H > 500 H Lactic Acid Calcium Phosphorus Magnesium AST ALT Alkaline Phosphatase Total Creatine Kinase CK-MB (CK-2) Troponin T C-Reactive Protein Total Protein Albumin Triglycerides HDL Cholesterol TSH Urine WBC (Auto) 11/11/17 11/11/17 11/11/17 06:29 06:29 06:41 WBC RBC Hgb Hct MCV MCH MCHC RDW Plt Count Seg Neuts % (Manual) Lymphocytes % (Manual) Seg Neutrophils # Man Lymphocytes # (Manual) Monocytes # (Manual) Basophils # (Manual) PT INR POC ABG pH POC ABG pCO2 POC ABG pO2 VBG pH Sodium 149 H Potassium 3.0 L Chloride 109.5 H Carbon Dioxide 17 L BUN 31 H Creatinine 1.7 H Glucose 407 H POC Glucose 387 H Lactic Acid 2.60 H* Calcium 6.2 L Phosphorus Magnesium AST ALT Alkaline Phosphatase Total Creatine Kinase CK-MB (CK-2) Troponin T C-Reactive Protein Total Protein Albumin Triglycerides HDL Cholesterol TSH Urine WBC (Auto) 11/11/17 11/11/17 11/11/17 07:05 07:07 07:07 WBC RBC Hgb Hct MCV MCH MCHC RDW Plt Count Seg Neuts % (Manual) Lymphocytes % (Manual) Seg Neutrophils # Man Lymphocytes # (Manual) Monocytes # (Manual) Basophils # (Manual) PT INR POC ABG pH POC ABG pCO2 POC ABG pO2 VBG pH Sodium 151 H Potassium 3.0 L Chloride 107.5 H Carbon Dioxide 11 L BUN 31 H Creatinine 1.8 H Glucose 541 H* POC Glucose 378 H Lactic Acid Calcium 6.5 L Phosphorus Magnesium AST ALT Alkaline Phosphatase Total Creatine Kinase 686 H CK-MB (CK-2) 19.6 H Troponin T C-Reactive Protein Total Protein Albumin Triglycerides HDL Cholesterol TSH Urine WBC (Auto) 11/11/17 11/11/17 11/11/17 08:50 08:52 09:57 WBC RBC Hgb Hct MCV MCH MCHC RDW Plt Count Seg Neuts % (Manual) Lymphocytes % (Manual) Seg Neutrophils # Man Lymphocytes # (Manual) Monocytes # (Manual) Basophils # (Manual) PT INR POC ABG pH 7.175 L POC ABG pCO2 45.1 H POC ABG pO2 33 L VBG pH Sodium Potassium Chloride Carbon Dioxide BUN Creatinine Glucose POC Glucose 256 H 232 H Lactic Acid Calcium Phosphorus Magnesium AST ALT Alkaline Phosphatase Total Creatine Kinase CK-MB (CK-2) Troponin T C-Reactive Protein Total Protein Albumin Triglycerides HDL Cholesterol TSH Urine WBC (Auto) 11/11/17 11/11/17 11/11/17 10:45 10:45 11:08 WBC RBC Hgb Hct MCV MCH 33 H MCHC RDW Plt Count Seg Neuts % (Manual) Lymphocytes % (Manual) Seg Neutrophils # Man Lymphocytes # (Manual) Monocytes # (Manual) Basophils # (Manual) PT INR POC ABG pH 7.157 L POC ABG pCO2 52.2 H POC ABG pO2 31 L VBG pH Sodium Potassium Chloride Carbon Dioxide BUN Creatinine Glucose POC Glucose Lactic Acid Calcium Phosphorus Magnesium AST ALT Alkaline Phosphatase Total Creatine Kinase 1041 H CK-MB (CK-2) 31.9 H Troponin T 0.041 H D C-Reactive Protein Total Protein Albumin Triglycerides 510 H HDL Cholesterol 26 L TSH Urine WBC (Auto) 11/11/17 11/11/17 11/11/17 11:12 12:33 12:38 WBC RBC Hgb Hct MCV MCH MCHC RDW Plt Count Seg Neuts % (Manual) Lymphocytes % (Manual) Seg Neutrophils # Man Lymphocytes # (Manual) Monocytes # (Manual) Basophils # (Manual) PT INR POC ABG pH 7.258 L POC ABG pCO2 94.5 H POC ABG pO2 50 L VBG pH Sodium Potassium Chloride Carbon Dioxide BUN Creatinine Glucose POC Glucose 246 H 265 H Lactic Acid Calcium Phosphorus Magnesium AST ALT Alkaline Phosphatase Total Creatine Kinase CK-MB (CK-2) Troponin T C-Reactive Protein Total Protein Albumin Triglycerides HDL Cholesterol TSH Urine WBC (Auto) 11/11/17 11/11/17 11/11/17 12:40 12:40 12:40 WBC RBC Hgb Hct MCV MCH MCHC RDW Plt Count Seg Neuts % (Manual) Lymphocytes % (Manual) Seg Neutrophils # Man Lymphocytes # (Manual) Monocytes # (Manual) Basophils # (Manual) PT INR POC ABG pH POC ABG pCO2 POC ABG pO2 VBG pH Sodium 171 H* D Potassium 2.9 L* Chloride 118.2 H Carbon Dioxide 39 H D BUN 28 H Creatinine 1.8 H Glucose 301 H POC Glucose Lactic Acid 11.70 H* Calcium 11.4 H D Phosphorus Magnesium AST ALT Alkaline Phosphatase Total Creatine Kinase CK-MB (CK-2) Troponin T C-Reactive Protein 7.40 H Total Protein Albumin Triglycerides HDL Cholesterol TSH Urine WBC (Auto) 11/11/17 11/11/17 11/11/17 13:58 14:53 15:42 WBC RBC Hgb Hct MCV MCH MCHC RDW Plt Count Seg Neuts % (Manual) Lymphocytes % (Manual) Seg Neutrophils # Man Lymphocytes # (Manual) Monocytes # (Manual) Basophils # (Manual) PT INR POC ABG pH POC ABG pCO2 POC ABG pO2 VBG pH Sodium Potassium Chloride Carbon Dioxide BUN Creatinine Glucose POC Glucose 244 H 273 H 311 H Lactic Acid Calcium Phosphorus Magnesium AST ALT Alkaline Phosphatase Total Creatine Kinase CK-MB (CK-2) Troponin T C-Reactive Protein Total Protein Albumin Triglycerides HDL Cholesterol TSH Urine WBC (Auto) 11/11/17 11/11/17 11/11/17 16:08 17:09 18:41 WBC RBC Hgb Hct MCV MCH MCHC RDW Plt Count Seg Neuts % (Manual) Lymphocytes % (Manual) Seg Neutrophils # Man Lymphocytes # (Manual) Monocytes # (Manual) Basophils # (Manual) PT INR POC ABG pH POC ABG pCO2 POC ABG pO2 VBG pH Sodium 153 H D Potassium 3.3 L Chloride 112.6 H Carbon Dioxide 14 L D BUN 30 H Creatinine 2.1 H Glucose 301 H POC Glucose 337 H 262 H Lactic Acid Calcium 7.8 L D Phosphorus Magnesium AST ALT Alkaline Phosphatase Total Creatine Kinase CK-MB (CK-2) Troponin T C-Reactive Protein Total Protein Albumin Triglycerides HDL Cholesterol TSH Urine WBC (Auto) 11/11/17 11/11/17 11/11/17 19:49 20:14 20:25 WBC RBC Hgb Hct MCV MCH MCHC RDW Plt Count Seg Neuts % (Manual) Lymphocytes % (Manual) Seg Neutrophils # Man Lymphocytes # (Manual) Monocytes # (Manual) Basophils # (Manual) PT INR POC ABG pH POC ABG pCO2 POC ABG pO2 VBG pH Sodium 154 H Potassium 2.7 L* Chloride 110.8 H Carbon Dioxide 20 L BUN 31 H Creatinine 2.4 H Glucose 261 H POC Glucose 281 H 265 H Lactic Acid Calcium 7.9 L Phosphorus Magnesium AST ALT Alkaline Phosphatase Total Creatine Kinase CK-MB (CK-2) Troponin T C-Reactive Protein Total Protein Albumin Triglycerides HDL Cholesterol TSH Urine WBC (Auto) 11/11/17 11/11/17 11/11/17 20:53 21:55 23:17 WBC RBC Hgb Hct MCV MCH MCHC RDW Plt Count Seg Neuts % (Manual) Lymphocytes % (Manual) Seg Neutrophils # Man Lymphocytes # (Manual) Monocytes # (Manual) Basophils # (Manual) PT INR POC ABG pH POC ABG pCO2 POC ABG pO2 VBG pH Sodium Potassium Chloride Carbon Dioxide BUN Creatinine Glucose POC Glucose 274 H 209 H 180 H Lactic Acid Calcium Phosphorus Magnesium AST ALT Alkaline Phosphatase Total Creatine Kinase CK-MB (CK-2) Troponin T C-Reactive Protein Total Protein Albumin Triglycerides HDL Cholesterol TSH Urine WBC (Auto) 11/12/17 11/12/17 11/12/17 00:09 00:26 01:12 WBC RBC Hgb Hct MCV MCH MCHC RDW Plt Count Seg Neuts % (Manual) Lymphocytes % (Manual) Seg Neutrophils # Man Lymphocytes # (Manual) Monocytes # (Manual) Basophils # (Manual) PT INR POC ABG pH POC ABG pCO2 POC ABG pO2 VBG pH Sodium 154 H Potassium Chloride 113.1 H Carbon Dioxide 17 L BUN 34 H Creatinine 2.5 H Glucose 144 H POC Glucose 176 H 148 H Lactic Acid Calcium 7.7 L Phosphorus Magnesium AST ALT Alkaline Phosphatase Total Creatine Kinase CK-MB (CK-2) Troponin T C-Reactive Protein Total Protein Albumin Triglycerides HDL Cholesterol TSH Urine WBC (Auto) 11/12/17 11/12/17 11/12/17 02:05 03:27 04:22 WBC RBC Hgb Hct MCV MCH MCHC RDW Plt Count Seg Neuts % (Manual) Lymphocytes % (Manual) Seg Neutrophils # Man Lymphocytes # (Manual) Monocytes # (Manual) Basophils # (Manual) PT INR POC ABG pH POC ABG pCO2 POC ABG pO2 VBG pH Sodium Potassium Chloride Carbon Dioxide BUN Creatinine Glucose POC Glucose 148 H 156 H 137 H Lactic Acid Calcium Phosphorus Magnesium AST ALT Alkaline Phosphatase Total Creatine Kinase CK-MB (CK-2) Troponin T C-Reactive Protein Total Protein Albumin Triglycerides HDL Cholesterol TSH Urine WBC (Auto) 11/12/17 11/12/17 11/12/17 04:42 05:06 05:34 WBC RBC Hgb Hct MCV MCH MCHC RDW Plt Count Seg Neuts % (Manual) Lymphocytes % (Manual) Seg Neutrophils # Man Lymphocytes # (Manual) Monocytes # (Manual) Basophils # (Manual) PT INR POC ABG pH POC ABG pCO2 POC ABG pO2 56 L VBG pH Sodium 154 H Potassium 3.2 L D Chloride 109.8 H Carbon Dioxide BUN 32 H Creatinine 2.6 H Glucose 157 H POC Glucose 163 H Lactic Acid Calcium 7.3 L Phosphorus Magnesium AST ALT Alkaline Phosphatase Total Creatine Kinase CK-MB (CK-2) Troponin T C-Reactive Protein Total Protein Albumin Triglycerides HDL Cholesterol TSH Urine WBC (Auto) 11/12/17 11/12/17 11/12/17 05:42 06:23 06:36 WBC RBC Hgb Hct MCV MCH MCHC RDW Plt Count Seg Neuts % (Manual) Lymphocytes % (Manual) Seg Neutrophils # Man Lymphocytes # (Manual) Monocytes # (Manual) Basophils # (Manual) PT INR POC ABG pH POC ABG pCO2 POC ABG pO2 VBG pH Sodium Potassium Chloride Carbon Dioxide BUN Creatinine Glucose POC Glucose 166 H 171 H 181 H Lactic Acid Calcium Phosphorus Magnesium AST ALT Alkaline Phosphatase Total Creatine Kinase CK-MB (CK-2) Troponin T C-Reactive Protein Total Protein Albumin Triglycerides HDL Cholesterol TSH Urine WBC (Auto) 11/12/17 11/12/17 11/12/17 07:07 08:16 09:10 WBC RBC Hgb Hct MCV MCH MCHC RDW Plt Count Seg Neuts % (Manual) Lymphocytes % (Manual) Seg Neutrophils # Man Lymphocytes # (Manual) Monocytes # (Manual) Basophils # (Manual) PT INR POC ABG pH POC ABG pCO2 POC ABG pO2 VBG pH Sodium Potassium Chloride Carbon Dioxide BUN Creatinine Glucose POC Glucose 170 H 171 H 170 H Lactic Acid Calcium Phosphorus Magnesium AST ALT Alkaline Phosphatase Total Creatine Kinase CK-MB (CK-2) Troponin T C-Reactive Protein Total Protein Albumin Triglycerides HDL Cholesterol TSH Urine WBC (Auto) 11/12/17 11/12/17 11/12/17 11:12 12:13 12:13 WBC RBC Hgb Hct MCV MCH MCHC RDW Plt Count Seg Neuts % (Manual) Lymphocytes % (Manual) Seg Neutrophils # Man Lymphocytes # (Manual) Monocytes # (Manual) Basophils # (Manual) PT INR POC ABG pH 7.316 L POC ABG pCO2 57.4 H POC ABG pO2 46 L VBG pH Sodium Potassium Chloride Carbon Dioxide BUN Creatinine Glucose POC Glucose 145 H 123 H Lactic Acid Calcium Phosphorus Magnesium AST ALT Alkaline Phosphatase Total Creatine Kinase CK-MB (CK-2) Troponin T C-Reactive Protein Total Protein Albumin Triglycerides HDL Cholesterol TSH Urine WBC (Auto) 11/12/17 11/12/17 11/12/17 14:52 18:05 18:05 WBC 29.0 H RBC 3.15 L Hgb Hct 29.4 L D MCV MCH MCHC 35 H RDW Plt Count 115 L Seg Neuts % (Manual) 90.0 H Lymphocytes % (Manual) 6.0 L Seg Neutrophils # Man 26.1 H Lymphocytes # (Manual) Monocytes # (Manual) 1.2 H Basophils # (Manual) PT INR POC ABG pH POC ABG pCO2 POC ABG pO2 VBG pH Sodium 148 H Potassium Chloride Carbon Dioxide BUN 34 H Creatinine 2.9 H Glucose 147 H POC Glucose 139 H Lactic Acid Calcium 6.6 L Phosphorus Magnesium AST ALT Alkaline Phosphatase Total Creatine Kinase CK-MB (CK-2) Troponin T C-Reactive Protein Total Protein Albumin Triglycerides HDL Cholesterol TSH Urine WBC (Auto) 11/12/17 11/12/17 11/12/17 18:19 18:23 18:45 WBC RBC Hgb Hct MCV MCH MCHC RDW Plt Count Seg Neuts % (Manual) Lymphocytes % (Manual) Seg Neutrophils # Man Lymphocytes # (Manual) Monocytes # (Manual) Basophils # (Manual) PT INR POC ABG pH 7.248 L 7.253 L POC ABG pCO2 61.4 H 58.2 H POC ABG pO2 24 L 56 L VBG pH Sodium Potassium Chloride Carbon Dioxide BUN Creatinine Glucose POC Glucose 154 H Lactic Acid Calcium Phosphorus Magnesium AST ALT Alkaline Phosphatase Total Creatine Kinase CK-MB (CK-2) Troponin T C-Reactive Protein Total Protein Albumin Triglycerides HDL Cholesterol TSH Urine WBC (Auto) 11/12/17 11/12/17 11/12/17 19:08 20:12 21:14 WBC RBC Hgb Hct MCV MCH MCHC RDW Plt Count Seg Neuts % (Manual) Lymphocytes % (Manual) Seg Neutrophils # Man Lymphocytes # (Manual) Monocytes # (Manual) Basophils # (Manual) PT INR POC ABG pH POC ABG pCO2 POC ABG pO2 VBG pH Sodium Potassium Chloride Carbon Dioxide BUN Creatinine Glucose POC Glucose 154 H 155 H 130 H Lactic Acid Calcium Phosphorus Magnesium AST ALT Alkaline Phosphatase Total Creatine Kinase CK-MB (CK-2) Troponin T C-Reactive Protein Total Protein Albumin Triglycerides HDL Cholesterol TSH Urine WBC (Auto) 11/12/17 11/12/17 11/13/17 21:30 22:08 01:17 WBC RBC Hgb Hct MCV MCH MCHC RDW Plt Count Seg Neuts % (Manual) Lymphocytes % (Manual) Seg Neutrophils # Man Lymphocytes # (Manual) Monocytes # (Manual) Basophils # (Manual) PT INR POC ABG pH 7.220 L POC ABG pCO2 57.4 H POC ABG pO2 50 L VBG pH Sodium 146 H Potassium Chloride Carbon Dioxide BUN 35 H Creatinine 3.2 H Glucose 120 H POC Glucose 108 H Lactic Acid Calcium 6.3 L Phosphorus Magnesium AST ALT Alkaline Phosphatase Total Creatine Kinase CK-MB (CK-2) Troponin T C-Reactive Protein Total Protein Albumin Triglycerides HDL Cholesterol TSH Urine WBC (Auto) 11/13/17 11/13/17 11/13/17 01:30 01:33 03:31 WBC RBC Hgb Hct MCV MCH MCHC RDW Plt Count Seg Neuts % (Manual) Lymphocytes % (Manual) Seg Neutrophils # Man Lymphocytes # (Manual) Monocytes # (Manual) Basophils # (Manual) PT INR POC ABG pH POC ABG pCO2 POC ABG pO2 VBG pH Sodium 146 H Potassium Chloride Carbon Dioxide BUN 36 H Creatinine 3.4 H Glucose 143 H POC Glucose 117 H 123 H Lactic Acid Calcium 6.0 L Phosphorus Magnesium AST ALT Alkaline Phosphatase Total Creatine Kinase CK-MB (CK-2) Troponin T C-Reactive Protein Total Protein Albumin Triglycerides HDL Cholesterol TSH Urine WBC (Auto) 11/13/17 11/13/17 11/13/17 04:25 05:14 06:00 WBC RBC Hgb Hct MCV MCH MCHC RDW Plt Count Seg Neuts % (Manual) Lymphocytes % (Manual) Seg Neutrophils # Man Lymphocytes # (Manual) Monocytes # (Manual) Basophils # (Manual) PT INR POC ABG pH POC ABG pCO2 POC ABG pO2 VBG pH Sodium Potassium Chloride Carbon Dioxide BUN 39 H Creatinine 3.8 H Glucose 182 H POC Glucose 161 H 163 H Lactic Acid Calcium 6.6 L Phosphorus 4.90 H Magnesium 1.20 L AST ALT Alkaline Phosphatase Total Creatine Kinase CK-MB (CK-2) Troponin T C-Reactive Protein Total Protein Albumin Triglycerides HDL Cholesterol TSH Urine WBC (Auto) 11/13/17 11/13/17 11/13/17 06:00 06:07 06:24 WBC 32.3 H RBC 3.40 L Hgb Hct MCV MCH MCHC RDW Plt Count 99 L Seg Neuts % (Manual) Lymphocytes % (Manual) Seg Neutrophils # Man Lymphocytes # (Manual) Monocytes # (Manual) Basophils # (Manual) PT INR POC ABG pH 7.199 L POC ABG pCO2 58.3 H POC ABG pO2 70 L VBG pH Sodium Potassium Chloride Carbon Dioxide BUN Creatinine Glucose POC Glucose 171 H Lactic Acid Calcium Phosphorus Magnesium AST ALT Alkaline Phosphatase Total Creatine Kinase CK-MB (CK-2) Troponin T C-Reactive Protein Total Protein Albumin Triglycerides HDL Cholesterol TSH Urine WBC (Auto) 11/13/17 11/13/17 11/13/17 07:42 08:55 09:25 WBC RBC Hgb Hct MCV MCH MCHC RDW Plt Count Seg Neuts % (Manual) Lymphocytes % (Manual) Seg Neutrophils # Man Lymphocytes # (Manual) Monocytes # (Manual) Basophils # (Manual) PT INR POC ABG pH POC ABG pCO2 POC ABG pO2 VBG pH Sodium Potassium Chloride Carbon Dioxide BUN Creatinine Glucose POC Glucose 132 H 143 H 123 H Lactic Acid Calcium Phosphorus Magnesium AST ALT Alkaline Phosphatase Total Creatine Kinase CK-MB (CK-2) Troponin T C-Reactive Protein Total Protein Albumin Triglycerides HDL Cholesterol TSH Urine WBC (Auto) 11/13/17 11/13/17 11/13/17 10:01 10:30 11:06 WBC RBC Hgb Hct MCV MCH MCHC RDW Plt Count Seg Neuts % (Manual) Lymphocytes % (Manual) Seg Neutrophils # Man Lymphocytes # (Manual) Monocytes # (Manual) Basophils # (Manual) PT INR POC ABG pH POC ABG pCO2 POC ABG pO2 VBG pH Sodium Potassium Chloride Carbon Dioxide BUN 41 H Creatinine 4.0 H Glucose 127 H POC Glucose 122 H 129 H Lactic Acid Calcium 6.6 L Phosphorus Magnesium AST ALT Alkaline Phosphatase Total Creatine Kinase CK-MB (CK-2) Troponin T C-Reactive Protein Total Protein Albumin Triglycerides HDL Cholesterol TSH Urine WBC (Auto) 11/13/17 11/13/17 11/13/17 12:01 12:08 14:59 WBC RBC Hgb Hct MCV MCH MCHC RDW Plt Count Seg Neuts % (Manual) Lymphocytes % (Manual) Seg Neutrophils # Man Lymphocytes # (Manual) Monocytes # (Manual) Basophils # (Manual) PT INR POC ABG pH 7.307 L POC ABG pCO2 52.9 H POC ABG pO2 VBG pH Sodium Potassium Chloride Carbon Dioxide BUN Creatinine Glucose POC Glucose 122 H 112 H Lactic Acid Calcium Phosphorus Magnesium AST ALT Alkaline Phosphatase Total Creatine Kinase CK-MB (CK-2) Troponin T C-Reactive Protein Total Protein Albumin Triglycerides HDL Cholesterol TSH Urine WBC (Auto) 11/13/17 11/13/17 11/13/17 16:15 17:58 19:08 WBC RBC Hgb Hct MCV MCH MCHC RDW Plt Count Seg Neuts % (Manual) Lymphocytes % (Manual) Seg Neutrophils # Man Lymphocytes # (Manual) Monocytes # (Manual) Basophils # (Manual) PT INR POC ABG pH POC ABG pCO2 POC ABG pO2 VBG pH Sodium Potassium 5.1 H D Chloride Carbon Dioxide BUN 44 H Creatinine 4.3 H Glucose 117 H POC Glucose 128 H 110 H Lactic Acid Calcium 7.0 L Phosphorus Magnesium AST ALT Alkaline Phosphatase Total Creatine Kinase CK-MB (CK-2) Troponin T C-Reactive Protein Total Protein Albumin Triglycerides HDL Cholesterol TSH Urine WBC (Auto) 11/13/17 11/13/17 11/13/17 19:59 20:22 21:05 WBC RBC Hgb Hct MCV MCH MCHC RDW Plt Count Seg Neuts % (Manual) Lymphocytes % (Manual) Seg Neutrophils # Man Lymphocytes # (Manual) Monocytes # (Manual) Basophils # (Manual) PT INR POC ABG pH POC ABG pCO2 POC ABG pO2 VBG pH Sodium Potassium Chloride Carbon Dioxide BUN 48 H Creatinine 4.5 H Glucose 181 H POC Glucose 180 H 134 H Lactic Acid Calcium 7.0 L Phosphorus Magnesium AST ALT Alkaline Phosphatase Total Creatine Kinase CK-MB (CK-2) Troponin T C-Reactive Protein Total Protein Albumin Triglycerides HDL Cholesterol TSH Urine WBC (Auto) 11/13/17 11/13/17 11/14/17 22:04 23:08 00:08 WBC RBC Hgb Hct MCV MCH MCHC RDW Plt Count Seg Neuts % (Manual) Lymphocytes % (Manual) Seg Neutrophils # Man Lymphocytes # (Manual) Monocytes # (Manual) Basophils # (Manual) PT INR POC ABG pH POC ABG pCO2 POC ABG pO2 VBG pH Sodium Potassium Chloride Carbon Dioxide BUN Creatinine Glucose POC Glucose 135 H 143 H 121 H Lactic Acid Calcium Phosphorus Magnesium AST ALT Alkaline Phosphatase Total Creatine Kinase CK-MB (CK-2) Troponin T C-Reactive Protein Total Protein Albumin Triglycerides HDL Cholesterol TSH Urine WBC (Auto) 11/14/17 11/14/17 11/14/17 00:37 01:07 01:27 WBC RBC Hgb Hct MCV MCH MCHC RDW Plt Count Seg Neuts % (Manual) Lymphocytes % (Manual) Seg Neutrophils # Man Lymphocytes # (Manual) Monocytes # (Manual) Basophils # (Manual) PT INR POC ABG pH 7.308 L POC ABG pCO2 POC ABG pO2 161 H VBG pH Sodium Potassium 5.2 H Chloride Carbon Dioxide BUN 49 H Creatinine 4.6 H Glucose 123 H POC Glucose 106 H Lactic Acid Calcium 6.5 L Phosphorus Magnesium AST ALT Alkaline Phosphatase Total Creatine Kinase CK-MB (CK-2) Troponin T C-Reactive Protein Total Protein Albumin Triglycerides HDL Cholesterol TSH Urine WBC (Auto) 11/14/17 11/14/17 11/14/17 02:20 03:09 04:00 WBC RBC Hgb Hct MCV MCH MCHC RDW Plt Count Seg Neuts % (Manual) Lymphocytes % (Manual) Seg Neutrophils # Man Lymphocytes # (Manual) Monocytes # (Manual) Basophils # (Manual) PT INR POC ABG pH POC ABG pCO2 POC ABG pO2 VBG pH Sodium Potassium 5.5 H Chloride Carbon Dioxide BUN 51 H Creatinine 4.5 H Glucose 181 H POC Glucose 130 H 126 H Lactic Acid Calcium 6.6 L Phosphorus Magnesium AST ALT Alkaline Phosphatase Total Creatine Kinase CK-MB (CK-2) Troponin T C-Reactive Protein Total Protein Albumin Triglycerides HDL Cholesterol TSH Urine WBC (Auto) 11/14/17 11/14/17 11/14/17 04:00 04:36 06:29 WBC 31.6 H RBC 3.39 L Hgb Hct MCV MCH MCHC RDW 15.3 H Plt Count 87 L Seg Neuts % (Manual) Lymphocytes % (Manual) Seg Neutrophils # Man Lymphocytes # (Manual) Monocytes # (Manual) Basophils # (Manual) PT INR POC ABG pH POC ABG pCO2 POC ABG pO2 VBG pH Sodium Potassium Chloride Carbon Dioxide BUN Creatinine Glucose POC Glucose 135 H 166 H Lactic Acid Calcium Phosphorus Magnesium AST ALT Alkaline Phosphatase Total Creatine Kinase CK-MB (CK-2) Troponin T C-Reactive Protein Total Protein Albumin Triglycerides HDL Cholesterol TSH Urine WBC (Auto) 11/14/17 11/14/17 11/14/17 12:02 12:45 12:45 WBC RBC Hgb Hct MCV MCH MCHC RDW Plt Count Seg Neuts % (Manual) Lymphocytes % (Manual) Seg Neutrophils # Man Lymphocytes # (Manual) Monocytes # (Manual) Basophils # (Manual) PT 20.8 H INR 1.68 H POC ABG pH POC ABG pCO2 POC ABG pO2 VBG pH Sodium Potassium 5.5 H Chloride Carbon Dioxide 19 L BUN 58 H Creatinine 4.8 H Glucose 313 H POC Glucose 222 H Lactic Acid Calcium 6.4 L Phosphorus Magnesium AST ALT Alkaline Phosphatase Total Creatine Kinase CK-MB (CK-2) Troponin T C-Reactive Protein Total Protein Albumin Triglycerides HDL Cholesterol TSH Urine WBC (Auto) 11/14/17 11/14/17 11/14/17 16:34 18:12 23:15 WBC RBC Hgb Hct MCV MCH MCHC RDW Plt Count Seg Neuts % (Manual) Lymphocytes % (Manual) Seg Neutrophils # Man Lymphocytes # (Manual) Monocytes # (Manual) Basophils # (Manual) PT INR POC ABG pH POC ABG pCO2 POC ABG pO2 VBG pH Sodium Potassium Chloride Carbon Dioxide 17 L BUN 63 H Creatinine 5.1 H Glucose 368 H POC Glucose 381 H 434 H Lactic Acid Calcium 6.4 L Phosphorus Magnesium AST ALT Alkaline Phosphatase Total Creatine Kinase CK-MB (CK-2) Troponin T C-Reactive Protein Total Protein Albumin Triglycerides HDL Cholesterol TSH Urine WBC (Auto) 11/14/17 11/15/17 11/15/17 Unknown 00:51 04:23 WBC RBC Hgb Hct MCV MCH MCHC RDW Plt Count Seg Neuts % (Manual) Lymphocytes % (Manual) Seg Neutrophils # Man Lymphocytes # (Manual) Monocytes # (Manual) Basophils # (Manual) PT INR POC ABG pH 7.287 L POC ABG pCO2 POC ABG pO2 141 H VBG pH Sodium Potassium Chloride Carbon Dioxide BUN Creatinine Glucose POC Glucose 415 H Lactic Acid 2.80 H* Calcium Phosphorus Magnesium AST ALT Alkaline Phosphatase Total Creatine Kinase CK-MB (CK-2) Troponin T C-Reactive Protein Total Protein Albumin Triglycerides HDL Cholesterol TSH Urine WBC (Auto) 11/15/17 11/15/17 11/15/17 05:00 05:43 10:00 WBC 12.0 H RBC 2.23 L Hgb 7.2 L D Hct 21.7 L D MCV MCH MCHC RDW Plt Count 64 L Seg Neuts % (Manual) 79.0 H Lymphocytes % (Manual) 4.0 L Seg Neutrophils # Man 9.5 H Lymphocytes # (Manual) 0.5 L Monocytes # (Manual) Basophils # (Manual) PT INR POC ABG pH POC ABG pCO2 POC ABG pO2 VBG pH Sodium Potassium Chloride Carbon Dioxide 18 L BUN 73 H Creatinine 5.3 H Glucose 461 H POC Glucose 416 H Lactic Acid Calcium 6.7 L Phosphorus Magnesium AST ALT Alkaline Phosphatase Total Creatine Kinase CK-MB (CK-2) Troponin T C-Reactive Protein Total Protein Albumin Triglycerides HDL Cholesterol TSH Urine WBC (Auto) 11/15/17 11/15/17 11/15/17 10:00 12:24 18:42 WBC RBC Hgb Hct MCV MCH MCHC RDW Plt Count Seg Neuts % (Manual) Lymphocytes % (Manual) Seg Neutrophils # Man Lymphocytes # (Manual) Monocytes # (Manual) Basophils # (Manual) PT INR POC ABG pH POC ABG pCO2 POC ABG pO2 VBG pH Sodium Potassium Chloride Carbon Dioxide 21 L BUN 76 H Creatinine 5.7 H Glucose 386 H POC Glucose 374 H 343 H Lactic Acid Calcium 6.9 L Phosphorus Magnesium AST ALT Alkaline Phosphatase Total Creatine Kinase CK-MB (CK-2) Troponin T C-Reactive Protein Total Protein Albumin Triglycerides HDL Cholesterol TSH Urine WBC (Auto) 11/16/17 11/16/17 11/16/17 00:00 04:19 04:40 WBC RBC 2.60 L Hgb 8.5 L Hct 24.4 L MCV MCH 33 H MCHC 35 H RDW Plt Count 65 L Seg Neuts % (Manual) 92.0 H Lymphocytes % (Manual) 2.0 L Seg Neutrophils # Man 10.0 H Lymphocytes # (Manual) 0.2 L Monocytes # (Manual) Basophils # (Manual) PT INR POC ABG pH POC ABG pCO2 POC ABG pO2 66 L VBG pH Sodium Potassium Chloride Carbon Dioxide BUN Creatinine Glucose POC Glucose 205 H Lactic Acid Calcium Phosphorus Magnesium AST ALT Alkaline Phosphatase Total Creatine Kinase CK-MB (CK-2) Troponin T C-Reactive Protein Total Protein Albumin Triglycerides HDL Cholesterol TSH Urine WBC (Auto) 11/16/17 11/16/17 04:40 05:14 WBC RBC Hgb Hct MCV MCH MCHC RDW Plt Count Seg Neuts % (Manual) Lymphocytes % (Manual) Seg Neutrophils # Man Lymphocytes # (Manual) Monocytes # (Manual) Basophils # (Manual) PT INR POC ABG pH POC ABG pCO2 POC ABG pO2 VBG pH Sodium Potassium 3.2 L Chloride Carbon Dioxide BUN 48 H Creatinine 3.7 H Glucose 142 H POC Glucose 139 H Lactic Acid Calcium 8.0 L D Phosphorus Magnesium AST 2275 H ALT 647 H Alkaline Phosphatase 268 H Total Creatine Kinase 363 H CK-MB (CK-2) Troponin T C-Reactive Protein Total Protein 3.9 L Albumin 2.1 L Triglycerides HDL Cholesterol TSH Urine WBC (Auto) Assessment and Plan This 37 year old female presented in DKA on 11/10/17, then suffered cardiac arrest times 4. Since then she has been unresponsive, remains intubated, also requiring dialysis. CT scan of the brain is compatible with severe anoxic brain injury and her exam corroborates this. Plan - Will order an EEG. Meanwhile, continue all supportive care.
--- NOTE | 2017-11-16 14:16 | Progress Note ---
Assessment and Plan Cont supportive measures and wean vent and vasopressors as tolerated. Overall guarded prognosis. The patient has been seen in conjunction with Dr. Koroma who agrees with the assessment and plan of care. - Patient Problems (1) Cardiopulmonary arrest with successful resuscitation Current Visit: Yes Status: Acute (2) Cardiac arrest with ventricular fibrillation Current Visit: Yes Status: Acute (3) Acute respiratory failure requiring reintubation Current Visit: Yes Status: Acute (4) Pneumonia Current Visit: Yes Status: Acute (5) Septic shock Current Visit: Yes Status: Acute (6) DKA (diabetic ketoacidoses) Current Visit: Yes Status: Acute (7) Metabolic acidosis Current Visit: Yes Status: Acute (8) Altered mental status Current Visit: Yes Status: Acute (9) Acute renal failure Current Visit: Yes Status: Acute (10) Hyperkalemia Current Visit: Yes Status: Resolved (11) Elevated TSH Current Visit: Yes Status: Acute Subjective Date of service: 11/16/17 Principal diagnosis: s/p cardiac arrest Interval history: pt remains intubated, nonresponsive. in SR on tele with no arrhythmias noted overnight. requiring vasopressor support. no family at bedside. Objective Last Vital Signs Temp 99.6 F 11/16/17 04:00 Pulse 74 11/16/17 12:00 Resp 28 H 11/16/17 11:46 BP 98/48 11/16/17 12:00 Pulse Ox 93 11/16/17 12:00 - Physical Examination General: Other (intubated, nonresponsive) HEENT: Positive: Other (dilated 5 mm) Neck: Positive: neck supple, trachea midline Cardiac: Positive: Reg Rate and Rhythm, S1/S2 Lungs: Positive: Decreased Breath Sounds, Ventilated Respirations Neuro: Positive: Grossly Intact, Other (intubated, nonresponsive) Abdomen: Positive: Soft Extremities: Absent: edema - Labs and Meds Cardiac Enzymes 11/16/17 Range/Units 04:40 AST 2275 H (5-40) units/L CBC 11/16/17 Range/Units 04:40 WBC 10.9 (4.5-11.0) K/mm3 RBC 2.60 L (3.65-5.03) M/mm3 Hgb 8.5 L (10.1-14.3) gm/dl Hct 24.4 L (30.3-42.9) % Plt Count 65 L (140-440) K/mm3 Comprehensive Metabolic Panel 11/16/17 Range/Units 04:40 Sodium 140 (137-145) mmol/L Potassium 3.2 L (3.6-5.0) mmol/L Chloride 99.9 (98-107) mmol/L Carbon Dioxide 26 (22-30) mmol/L BUN 48 H (7-17) mg/dL Creatinine 3.7 H (0.7-1.2) mg/dL Glucose 142 H (65-100) mg/dL Calcium 8.0 L D (8.4-10.2) mg/dL AST 2275 H (5-40) units/L ALT 647 H (7-56) units/L Alkaline Phosphatase 268 H (35-129) units/L Total Protein 3.9 L (6.3-8.2) g/dL Albumin 2.1 L (3.9-5) g/dL - Imaging and Cardiology EKG: report reviewed, image reviewed Echo: report reviewed (11/11/2017 normal lv function, no signficant regurgitations) - Telemetry EKG Rhythm: Sinus Rhythm - EKG Sinus rhythms and dysrhythmias: sinus tachycardia - Allied health notes Allied health notes reviewed: RT
--- NOTE | 2017-11-16 15:45 | Progress Note ---
Assessment and Plan Assessment and plan: Ms. Melendez is a 37 yo woman with history of DM type 2, HTN, Hypothyroidism, Alcohol abuse, Tobacco dependecncy and Medical noncompliance per chart who presented to the ED via EMS after she was found by a family member at home to be extremely lethargic. She was brought to the ED for evaluation and was subsequently diagnosed with DKA, bilateral PNA, septic shock, ARF and hyperkalemia. Upon transfer from ED to CCU, she became unresponsive and developed cardiopulmonary arrest. ACLS protocol was initiated. At one point, she was noted to be in VF and was shocked twice and given several rounds of epinephrine and was initiated on amio gtt. She was intubated and remains intubated. She subsequently had 3 more cardiac arrest/PEA on the same day. Then she was placed on 4 vasopressors to maintain bp/vitals. s/p cardiorespiratory arrest - She was intubated and ACLS protocol was initiated - s/p cardiac arrest X4, 1st time with [employer],then followed by PEA X3 - likely from Severe DKA and severe septic shock - consulted cardiology, s/p amioderone drip - preserved EF on 2d echo, Acute respiratory failure with severe hypoxia - likely b/l PNA with ARDS due to severe DKA and sepsis - scheduled steroid, nebs, on vent with positive pressure ventilation - added paralytics to improve oxygenation - CC following, Bronchoscopy Severe hypothyroidism - TSH >15 on presentation - started on IV Synthroid DKA - Continue insulin drip, BMP every 4 hours - cont on DKA protocol, start on TF severe Septic shock with bilateral pneumonia - Continue to trend lactic acid, continue vancomycin and Zosyn for now, added clindamycin - Patient currently on levophed - Critical care and ID are following Severe metabolic acidosis - due to DKA, cont insulin drip and BMP every 4 hours Acute renal failure, ATN, poa - Continue IV fluid, nephrology consulted - declining renal function and very low urine output Hypernatremia, - renal is following and managing Bilateral pneumonia, poa - Continue antibiotic, MSSA and Group B strept on trach aspirate culture Hyperkalemia, status post Kayexalate Hypokalemia, will cont to replete Acute metabolic Encephalopathy, poa - cont frequent neuro check - ordered CT head but clinically unstable to do DVT prophylaxis, SCD due to severe thrombocytopenia Full code, prognosis guarded Levophed at 2 mcg, continue to wean very poor urine output, Hemodialysis started via femoral cath Tube feeding for nutrition Adame present SCD on restraints renewed Consult GI due to worsening Liver function. d/w Dr. Hyatt and he will manage the low potassium Neurology, Dr. Gomez diagnosis with SEVERE anoxic brain injury. EEG pending CCT 32 minutes History Interval history: Patient was seen and examined. Follow-up on current diagnosis of respiratory failure, pt still intubated and sedated. Imaging, nursing note, chart, labs and old chart reviewed. Discussed with nursing. Hospitalist Physical - Physical exam Narrative exam: GENERAL: well-developed WF, ill appearing, intubated and sedated HEENT: NCAT, ett in place, ngt in place NECK: Supple. Trachea midline CHEST/LUNGS: good air entry HEART/CARDIOVASCULAR: tachycardic. S1 and S2 positive. ABDOMEN: Abdomen is soft, nontender. +pbs SKIN: There is no rash. Warm and dry. NEURO: does not Follow command. unresponsive MUSCULOSKELETAL: No joint effusion or tenderness. EXTRIMITY: No edema, no cyanosis or clubbing. PSYCH: sedated - Constitutional Vitals: Temp Pulse Resp BP Pulse Ox 99.6 F 74 28 H 98/48 93 11/16/17 04:00 11/16/17 12:00 11/16/17 11:46 11/16/17 12:00 11/16/17 12:00 General appearance: Present: other (intubated, nonresponsive) Results - Labs CBC & Chem 7: 11/16/17 04:40 11/16/17 04:40 Labs: Laboratory Last Values WBC 10.9 K/mm3 (4.5-11.0) 11/16/17 04:40 RBC 2.60 M/mm3 (3.65-5.03) L 11/16/17 04:40 Hgb 8.5 gm/dl (10.1-14.3) L 11/16/17 04:40 Hct 24.4 % (30.3-42.9) L 11/16/17 04:40 MCV 94 fl (79-97) 11/16/17 04:40 MCH 33 pg (28-32) H 11/16/17 04:40 MCHC 35 % (30-34) H 11/16/17 04:40 RDW 14.9 % (13.2-15.2) 11/16/17 04:40 Plt Count 65 K/mm3 (140-440) L 11/16/17 04:40 Add Manual Diff Complete 11/16/17 04:40 Total Counted 100 11/16/17 04:40 Seg Neutrophils % Patroller 11/16/17 04:40 Seg Neuts % (Manual) 92.0 % (40.0-70.0) H 11/16/17 04:40 Band Neutrophils % 3.0 % 11/16/17 04:40 Lymphocytes % (Manual) 2.0 % (13.4-35.0) L 11/16/17 04:40 Reactive Lymphs % (Man) 0 % 11/16/17 04:40 Monocytes % (Manual) 3.0 % (0.0-7.3) 11/16/17 04:40 Eosinophils % (Manual) 0 % (0.0-4.3) 11/16/17 04:40 Basophils % (Manual) 0 % (0.0-1.8) 11/16/17 04:40 Metamyelocytes % 0 % 11/16/17 04:40 Myelocytes % 0 % 11/16/17 04:40 Promyelocytes % 0 % 11/16/17 04:40 Blast Cells % 0 % 11/16/17 04:40 Nucleated RBC % Not Reportable 11/16/17 04:40 Seg Neutrophils # Man 10.0 K/mm3 (1.8-7.7) H 11/16/17 04:40 Band Neutrophils # 0.3 K/mm3 11/16/17 04:40 Lymphocytes # (Manual) 0.2 K/mm3 (1.2-5.4) L 11/16/17 04:40 Abs React Lymphs (Man) 0.0 K/mm3 11/16/17 04:40 Monocytes # (Manual) 0.3 K/mm3 (0.0-0.8) 11/16/17 04:40 Eosinophils # (Manual) 0.0 K/mm3 (0.0-0.4) 11/16/17 04:40 Basophils # (Manual) 0.0 K/mm3 (0.0-0.1) 11/16/17 04:40 Metamyelocytes # 0.0 K/mm3 11/16/17 04:40 Myelocytes # 0.0 K/mm3 11/16/17 04:40 Promyelocytes # 0.0 K/mm3 11/16/17 04:40 Blast Cells # 0.0 K/mm3 11/16/17 04:40 WBC Morphology Not Reportable 11/16/17 04:40 Hypersegmented Neuts Not Reportable 11/16/17 04:40 Hyposegmented Neuts Not Reportable 11/16/17 04:40 Hypogranular Neuts Not Reportable 11/16/17 04:40 Smudge Cells Not Reportable 11/16/17 04:40 Toxic Granulation Not Reportable 11/16/17 04:40 Toxic Vacuolation Not Reportable 11/16/17 04:40 Dohle Bodies Not Reportable 11/16/17 04:40 Pelger-Huet Anomaly Not Reportable 11/16/17 04:40 Cassandra Rods Not Reportable 11/16/17 04:40 Platelet Estimate Consistent w auto 11/16/17 04:40 Clumped Platelets Not Reportable 11/16/17 04:40 Plt Clumps, EDTA Not Reportable 11/16/17 04:40 Large Platelets Not Reportable 11/16/17 04:40 Giant Platelets Not Reportable 11/16/17 04:40 Platelet Satelliting Not Reportable 11/16/17 04:40 Plt Morphology Comment Not Reportable 11/16/17 04:40 RBC Morphology Not Reportable 11/16/17 04:40 Dimorphic RBCs Not Reportable 11/16/17 04:40 Polychromasia Not Reportable 11/16/17 04:40 Hypochromasia Not Reportable 11/16/17 04:40 Poikilocytosis Not Reportable 11/16/17 04:40 Anisocytosis Not Reportable 11/16/17 04:40 Microcytosis Not Reportable 11/16/17 04:40 Macrocytosis Few 11/16/17 04:40 Spherocytes Not Reportable 11/16/17 04:40 Pappenheimer Bodies Not Reportable 11/16/17 04:40 Sickle Cells Not Reportable 11/16/17 04:40 Target Cells Not Reportable 11/16/17 04:40 Tear Drop Cells Not Reportable 11/16/17 04:40 Ovalocytes Not Reportable 11/16/17 04:40 Helmet Cells Not Reportable 11/16/17 04:40 Dickinson-Lima Bodies Not Reportable 11/16/17 04:40 [place] Rings Not Reportable 11/16/17 04:40 [place] Cells Not Reportable 11/16/17 04:40 Bite Cells Not Reportable 11/16/17 04:40 Crenated Cell Not Reportable 11/16/17 04:40 Elliptocytes Not Reportable 11/16/17 04:40 Acanthocytes (Spur) Not Reportable 11/16/17 04:40 Rouleaux Not Reportable 11/16/17 04:40 Hemoglobin C Crystals Not Reportable 11/16/17 04:40 Schistocytes Not Reportable 11/16/17 04:40 Malaria parasites Not Reportable 11/16/17 04:40 Munir Bodies Not Reportable 11/16/17 04:40 Hem Pathologist Commnt No 11/16/17 04:40 PT 20.8 Sec. (12.2-14.9) H 11/14/17 12:45 INR 1.68 (0.87-1.13) H 11/14/17 12:45 POC ABG pH 7.409 (7.35-7.45) 11/16/17 04:19 POC ABG pCO2 42.1 (35-45) 11/16/17 04:19 POC ABG pO2 66 (80-105) L 11/16/17 04:19 POC ABG HCO3 26.6 11/16/17 04:19 POC ABG Total CO2 28 11/16/17 04:19 POC ABG O2 Sat 93 11/16/17 04:19 POC ABG Base Excess 2 11/16/17 04:19 VBG pH 6.881 (7.320-7.420) L* 11/11/17 00:01 FiO2 55 % 11/16/17 04:19 Sodium 140 mmol/L (137-145) 11/16/17 04:40 Potassium 3.2 mmol/L (3.6-5.0) L 11/16/17 04:40 Chloride 99.9 mmol/L (98-107) 11/16/17 04:40 Carbon Dioxide 26 mmol/L (22-30) 11/16/17 04:40 Anion Gap 17 mmol/L 11/16/17 04:40 BUN 48 mg/dL (7-17) H 11/16/17 04:40 Creatinine 3.7 mg/dL (0.7-1.2) H 11/16/17 04:40 Estimated GFR 14 ml/min 11/16/17 04:40 BUN/Creatinine Ratio 13 % 11/16/17 04:40 Glucose 142 mg/dL (65-100) H 11/16/17 04:40 POC Glucose 139 (70-105) H 11/16/17 05:14 Lactic Acid 2.80 mmol/L (0.7-2.0) H* 11/14/17 Unknown Calcium 8.0 mg/dL (8.4-10.2) L D 11/16/17 04:40 Phosphorus 4.90 mg/dL (2.5-4.5) H 11/13/17 06:00 Magnesium 1.20 mg/dL (1.7-2.3) L 11/13/17 06:00 Total Bilirubin 0.30 mg/dL (0.1-1.2) 11/16/17 04:40 AST 2275 units/L (5-40) H 11/16/17 04:40 ALT 647 units/L (7-56) H 11/16/17 04:40 Alkaline Phosphatase 268 units/L (35-129) H 11/16/17 04:40 Total Creatine Kinase 363 units/L (30-135) H 11/16/17 04:40 CK-MB (CK-2) 31.9 ng/mL (0.0-4.0) H 11/11/17 10:45 CK-MB (CK-2) Rel Index 3.0 (0-4) 11/11/17 10:45 Troponin T 0.041 ng/mL (0.00-0.029) H D 11/11/17 10:45 C-Reactive Protein 7.40 mg/dL (0.00-1.30) H 11/11/17 12:40 Total Protein 3.9 g/dL (6.3-8.2) L 11/16/17 04:40 Albumin 2.1 g/dL (3.9-5) L 11/16/17 04:40 Albumin/Globulin Ratio 1.2 % 11/16/17 04:40 Triglycerides 510 mg/dL (2-149) H 11/11/17 10:45 Cholesterol 170 mg/dL (50-199) 11/11/17 10:45 LDL Cholesterol Direct TNR 11/11/17 10:45 HDL Cholesterol 26 mg/dL (40-59) L 11/11/17 10:45 Cholesterol/HDL Ratio 6.53 % 11/11/17 10:45 TSH 15.990 mlU/mL (0.270-4.200) H 11/10/17 23:15 Urine Color Yellow (Yellow) 11/10/17 Unknown Urine Turbidity Clear (Clear) 11/10/17 Unknown Urine pH 5.0 (5.0-7.0) 11/10/17 Unknown Ur Specific [place] 1.016 (1.003-1.030) 11/10/17 Unknown Urine Protein 30 mg/dl mg/dL (Negative) 11/10/17 Unknown Urine Glucose (UA) >=500 mg/dL (Negative) 11/10/17 Unknown Urine Ketones 80 mg/dL (Negative) 11/10/17 Unknown Urine Blood Mod (Negative) 11/10/17 Unknown Urine Nitrite Neg (Negative) 11/10/17 Unknown Urine Bilirubin Neg (Negative) 11/10/17 Unknown Urine Urobilinogen < 2.0 mg/dL (<2.0) 11/10/17 Unknown Ur Leukocyte Esterase Neg (Negative) 11/10/17 Unknown Urine WBC (Auto) 8.0 /HPF (0.0-6.0) H 11/10/17 Unknown Urine RBC (Auto) 1.0 /HPF (0.0-6.0) 11/10/17 Unknown U Epithel Cells (Auto) < 1.0 /HPF (0-13.0) 11/10/17 Unknown Urine Bacteria (Auto) 1+ /HPF (Negative) 11/10/17 Unknown Urine Mucus Few /HPF 11/10/17 Unknown Random Vancomycin 28.6 ug/mL (0-40.0) 11/14/17 05:25 Urine Opiates Screen Presumptive negative 11/10/17 Unknown Urine Methadone Screen Presumptive negative 11/10/17 Unknown Ur Barbiturates Screen Presumptive negative 11/10/17 Unknown Ur Phencyclidine Scrn Presumptive negative 11/10/17 Unknown Ur Amphetamines Screen Presumptive negative 11/10/17 Unknown U Benzodiazepines Scrn Presumptive negative 11/10/17 Unknown Urine Cocaine Screen Presumptive negative 11/10/17 Unknown U Marijuana (THC) Screen Presumptive negative 11/10/17 Unknown Drugs of Abuse Note Disclamer 11/10/17 Unknown Plasma/Serum Alcohol < 0.01 % (0-0.07) 11/14/17 12:45 Hepatitis A IgM Ab Non-reactive (NonReactive) 11/16/17 05:50 Hep Bs Antigen Non-reactive (Negative) 11/16/17 05:50 Hep B Core IgM Ab Non-reactive (NonReactive) 11/16/17 05:50 Hepatitis C Antibody Non-reactive (NonReactive) 11/16/17 05:50
--- NOTE | 2017-11-16 16:34 | Progress Note ---
Assessment and Plan Assessment: 1) Severe Sepsis with septic shock/hypolemic shock: still levophed at 2. Still leukocytosis. Fever resolved for 72h. Etiology most likely due to pneumonia +/- right submandibular abscess +/- DKA/N/V. -blood cx neg -TTE neg 2) Bilateral pneumonia - likely aspiration pneumonia -tracheal asp +MSSA/Strep group B -CT showed +kathleen large pleural effusions and kathleen patchy opacities -BAL pending 3) DKA 4) Acute encephalopathy ? Ischemic - CT showed lack of montoya-white differentitation 5) Acute resp failure -CT showed +kathleen large pleural effusions and kathleen patchy opacities 6) Hyponatremia 7) LOC 8) S/P VT cardiac arrest 9) Right submandibular abscess ? Actinomycosis of the Jaw? 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 Nat Reeves MD Infectious Diseases Specialist [facility] ([facility] [phone] Subjective Date of service: 11/16/17 Principal diagnosis: s/p cardiac arrest Interval history: Remains on the vent, no fever for 3 days. She is back on levophed at 2 mcg Microbiology: Blood cultures: 11/10 neg 11/11 neg Urine cultures: 11/10 neg Respiratory cultures: 11/11 MSSA and Beta hem Strep B Wound cultures: 11/13 Anushka albicans Current Antimicrobials: Clinda 11/12 cefazolin 11/14 Prior Antimicrobials: Vancomycin Zosyn Penicillin Objective - Exam Narrative Exam: General appearance: sedated on the vent FiO2 50% p12 Eyes: anicteric sclerae, moist conjunctivae; no lid-lag; PERRLA HENT: Atraumatic; oropharynx +ETT +NGT Neck: Trachea midline;+right submandibular wound with minimal induration and no drainage Lungs: CTA, with normal respiratory effort and no intercostal retractions CV:tachy Abdomen: Soft, non-tender Extremities: kathleen legs peripheral edema Skin: Normal temperature, turgor and texture; no rash, ulcers or subcutaneous nodules Psych: sedated. Neuro: sedated Lines: right SC TLC - Constitutional Vitals: Vital Signs Temp Pulse Resp BP Pulse Ox 99.6 F 74 28 H 98/48 93 11/16/17 04:00 11/16/17 12:00 11/16/17 11:46 11/16/17 12:00 11/16/17 12:00 Temperature -Last 24 Hours Temperature 99.6 F Temperature 99.2 F Temperature 99.0 F Temperature 99.3 F Temperature 99.3 F - Labs CBC & Chem 7: 11/16/17 04:40 11/16/17 04:40 Labs: Abnormal lab results 11/15/17 11/16/17 11/16/17 Range/Units 18:42 00:00 04:19 RBC (3.65-5.03) M/mm3 Hgb (10.1-14.3) gm/dl Hct (30.3-42.9) % MCH (28-32) pg MCHC (30-34) % Plt Count (140-440) K/mm3 Seg Neuts % (Manual) (40.0-70.0) % Lymphocytes % (Manual) (13.4-35.0) % Seg Neutrophils # Man (1.8-7.7) K/mm3 Lymphocytes # (Manual) (1.2-5.4) K/mm3 POC ABG pO2 66 L (80-105) Potassium (3.6-5.0) mmol/L BUN (7-17) mg/dL Creatinine (0.7-1.2) mg/dL Glucose (65-100) mg/dL POC Glucose 343 H 205 H (70-105) Calcium (8.4-10.2) mg/dL AST (5-40) units/L ALT (7-56) units/L Alkaline Phosphatase (35-129) units/L Total Creatine Kinase (30-135) units/L Total Protein (6.3-8.2) g/dL Albumin (3.9-5) g/dL 11/16/17 11/16/17 11/16/17 Range/Units 04:40 04:40 05:14 RBC 2.60 L (3.65-5.03) M/mm3 Hgb 8.5 L (10.1-14.3) gm/dl Hct 24.4 L (30.3-42.9) % MCH 33 H (28-32) pg MCHC 35 H (30-34) % Plt Count 65 L (140-440) K/mm3 Seg Neuts % (Manual) 92.0 H (40.0-70.0) % Lymphocytes % (Manual) 2.0 L (13.4-35.0) % Seg Neutrophils # Man 10.0 H (1.8-7.7) K/mm3 Lymphocytes # (Manual) 0.2 L (1.2-5.4) K/mm3 POC ABG pO2 (80-105) Potassium 3.2 L (3.6-5.0) mmol/L BUN 48 H (7-17) mg/dL Creatinine 3.7 H (0.7-1.2) mg/dL Glucose 142 H (65-100) mg/dL POC Glucose 139 H (70-105) Calcium 8.0 L D (8.4-10.2) mg/dL AST 2275 H (5-40) units/L ALT 647 H (7-56) units/L Alkaline Phosphatase 268 H (35-129) units/L Total Creatine Kinase 363 H (30-135) units/L Total Protein 3.9 L (6.3-8.2) g/dL Albumin 2.1 L (3.9-5) g/dL
[2017-11-16] MEDS: DIFLUCAN 200 MG/100 ML BAG IV SCH (21:13)
[2017-11-17] MEDS: HumuLIN R SUB-Q SCH ×5 (00:56→18:27)
--- NOTE | 2017-11-17 03:14 | XRay Report ---
FINAL REPORT EXAM: XR CHEST 1V AP HISTORY: follow up respiratory failure TECHNIQUE: A portable view of the chest was submitted and compared the study of 11/16/2017. FINDINGS: The right-sided central venous line, ET tube and NG tube are all in good position. The lungs remain diffusely congested. Underlying effusions cannot be excluded. The heart size is normal. The skeletal structures otherwise do not show any acute changes. IMPRESSION: Stable pulmonary vascular congestion noted. Underlying effusions cannot be excluded. Satisfactory position of tubes and lines.
[2017-11-17] MEDS: SYNTHROID IV SCH (05:19)
[2017-11-17] MEDS: CLEOCIN 600 MG/50 mL 600 MG/50 ML BAG IV SCH ×3 (05:19→18:59)
[2017-11-17 06:21] LABS: Hematocrit 24.4 % (30.3-42.9); Hemoglobin 8.3 gm/dl (10.1-14.3); Mean Corpuscular HGB Conc 34 % (30-34); Mean Corpuscular Hemoglobin 32 pg (28-32); Mean Corpuscular Volume 95 fl (79-97); Red Blood Count 2.58 M/mm3 (3.65-5.03); Red Cell Distribution Width 14.7 % (13.2-15.2)
[2017-11-17 06:29] LABS: INR 1.46 (0.87-1.13)
[2017-11-17 06:45] LABS: Albumin 2.3 g/dL (3.9-5); Calcium 7.5 mg/dL (8.4-10.2); Platelet Count 49 K/mm3 (140-440)
[2017-11-17] MEDS: LACTATED RINGERS 1,000 ML IV SCH (06:51)
[2017-11-17] MEDS ORDERED: NACL 0.9% 100 ML IV PRN (07:26)
--- NOTE | 2017-11-17 07:26 | Progress Note ---
Assessment and Plan 1. Acute kidney injury: LOC in the setting of volume depletion and DKA. Patient was started on hemodialysis on 11/15/2017 due to worsening renal function associated with anuria and hyperkalemia. HD today. 2. Electrolytes: Hypokalemia, 4K bath with dialysis. Severe metabolic acidosis, improving. Hypernatremia, improved. 3. Septic shock: On Levophed. 4. DKA. 5. Respiratory failure: On vent. 6. S/p Cardiac arrest. 7. Anemia. 8. Anoxic Encephalopathy. Subjective Date of service: 11/17/17 Principal diagnosis: s/p cardiac arrest Interval history: Patient was seen and examined at the bedside. Objective - Vital Signs Vital signs: Vital Signs - 12hr 11/16/17 11/16/17 11/16/17 19:30 19:45 19:55 Temperature Pulse Rate 66 65 66 Respiratory 28 H 28 H Rate Blood Pressure 104/69 103/72 103/72 O2 Sat by Pulse 97 95 97 Oximetry 11/16/17 11/16/17 11/16/17 20:00 20:15 20:30 Temperature 97.8 F Pulse Rate 66 66 65 Respiratory 28 H 28 H 28 H Rate Blood Pressure 103/72 97/59 97/59 O2 Sat by Pulse 97 96 97 Oximetry 11/16/17 11/16/17 11/16/17 20:45 21:00 21:15 Temperature Pulse Rate 66 66 64 Respiratory 28 H 28 H 28 H Rate Blood Pressure 92/52 92/52 97/60 O2 Sat by Pulse 95 96 97 Oximetry 11/16/17 11/16/17 11/16/17 21:30 21:45 22:00 Temperature Pulse Rate 66 70 68 Respiratory 28 H 28 H 28 H Rate Blood Pressure 97/60 88/49 88/49 O2 Sat by Pulse 96 94 97 Oximetry 11/16/17 11/16/17 11/16/17 22:15 22:30 22:45 Temperature Pulse Rate 66 64 64 Respiratory 28 H 28 H 28 H Rate Blood Pressure 106/72 106/72 112/79 O2 Sat by Pulse 93 97 94 Oximetry 11/16/17 11/16/17 11/16/17 23:00 23:15 23:18 Temperature Pulse Rate 64 63 63 Respiratory 28 H 28 H 28 H Rate Blood Pressure 112/79 114/82 114/82 O2 Sat by Pulse 98 95 98 Oximetry 07/18/18 07/18/18 07/19/18 23:30 23:45 00:00 Temperature 97.3 F L Pulse Rate 63 63 63 Respiratory 28 H 28 H 28 H Rate Blood Pressure 114/82 113/81 113/81 O2 Sat by Pulse 98 94 98 Oximetry 11/17/17 11/17/17 11/17/17 00:15 00:30 00:45 Temperature Pulse Rate 63 63 63 Respiratory 28 H 28 H 28 H Rate Blood Pressure 114/81 114/81 116/82 O2 Sat by Pulse 95 96 94 Oximetry 11/17/17 11/17/17 11/17/17 01:00 01:16 01:30 Temperature Pulse Rate 65 62 61 Respiratory 28 H 28 H 28 H Rate Blood Pressure 116/82 148/94 117/80 O2 Sat by Pulse 98 95 97 Oximetry 11/17/17 11/17/17 11/17/17 01:45 02:00 02:16 Temperature Pulse Rate 62 64 62 Respiratory 28 H 28 H 28 H Rate Blood Pressure 118/83 120/86 110/77 O2 Sat by Pulse 96 96 Oximetry 11/17/17 11/17/17 11/17/17 02:30 02:45 03:00 Temperature Pulse Rate 62 68 68 Respiratory 28 H 28 H 28 H Rate Blood Pressure 110/77 125/88 125/88 O2 Sat by Pulse 96 92 97 Oximetry 11/17/17 11/17/17 11/17/17 03:16 03:30 03:46 Temperature Pulse Rate 65 63 62 Respiratory 28 H 28 H 28 H Rate Blood Pressure 119/82 119/82 115/81 O2 Sat by Pulse 93 95 95 Oximetry 11/17/17 11/17/17 11/17/17 03:48 04:00 04:01 Temperature 98.0 F Pulse Rate 63 Respiratory 28 H Rate Blood Pressure 117/80 O2 Sat by Pulse 97 92 Oximetry 11/17/17 11/17/17 11/17/17 04:13 04:15 04:31 Temperature Pulse Rate 62 62 62 Respiratory 26 H 26 H Rate Blood Pressure 117/80 117/80 115/80 O2 Sat by Pulse 94 92 Oximetry 11/17/17 11/17/17 11/17/17 04:45 05:01 05:15 Temperature Pulse Rate 61 62 60 Respiratory 26 H 26 H 26 H Rate Blood Pressure 115/80 113/80 114/79 O2 Sat by Pulse 92 Oximetry 11/17/17 11/17/17 11/17/17 05:30 05:45 06:00 Temperature Pulse Rate 62 61 60 Respiratory 26 H 26 H 26 H Rate Blood Pressure 112/78 109/77 114/79 O2 Sat by Pulse 93 92 Oximetry 11/17/17 11/17/17 11/17/17 06:15 06:30 06:45 Temperature Pulse Rate 60 60 60 Respiratory 26 H 26 H 26 H Rate Blood Pressure 108/76 108/80 108/75 O2 Sat by Pulse 93 Oximetry - General Appearance General appearance: well-developed, appears stated age, intubated, other (FiO2 55%) EENT: ATNC Neck: supple Respiratory: Present: Clear to Ascultation Cardiology: regular, S1S2, no murmurs Gastrointestinal: normoactive bowel sounds Neurologic: obtunded Musculoskeletal: other (trace pedal edema, right groin dialysis catheter) - Lab 11/17/17 05:15 11/17/17 05:15 Most recent lab results Calcium 7.5 mg/dL (8.4-10.2) L 11/17/17 05:15 Phosphorus 4.90 mg/dL (2.5-4.5) H 11/13/17 06:00 Magnesium 1.20 mg/dL (1.7-2.3) L 11/13/17 06:00
[2017-11-17 08:03] LABS: Band Neutrophils # (Manual) 0.8 K/mm3; Basophils % (Manual) 0 % (0.0-1.8); Eosinophils % (Manual) 0 % (0.0-4.3); Total Cells Counted 100
[2017-11-17 08:04] LABS: Platelet Estimate Consistent w Auto; RBC Morphology Normal
--- NOTE | 2017-11-17 08:43 | Progress Note ---
Assessment and Plan Acute hypoxemic respiratory failure.. s/p cardiorespiratory arrest Subcutaneous emphysema( resolved) DKA Severe Sepsis with septic shock Severe metabolic acidosis Acute renal failure ARDS Hypernatremia Encephalopathy, metabolic -VAP bundle addressed -Initiate weaning once FIO2 is <60% and PEEP is at 6 -Antibiotics per ID -Correct electrolyte abnormalities, - Continue steroids for vasopressor unresponsive shock -ABG and CXR qam and prn -Renal replacement therapy per Renal service -Nutritional support, - Glycemic control In view of CT scan findings of severe anemia, get EEG and follow up with Neurology recommendations. Need to have a discussion with the mother re goals of care. Patient's respiratory status is improving, clinically and radiographically. However neurological status remains poor. Full code Prognosis is grave Subjective Date of service: 11/17/17 Principal diagnosis: s/p cardiac arrest Interval history: 37 y/o female with history of uncontrolled DM, non compliance with diabetes meds , previous admissions due to DKA, gastroparesis; brought to the hospital on 11/10 severely lethargic by her common law at home. Per her , she celebrated her birthday 2 days before admission, she had some drinks with friends. The following day she developed severe nausea, vomiting and abdominal pain. She did not have any cough, SOB or cold symptoms. She did not eat cake or sweets. EMS was called and she had a glucose above 500. In the ED, temp 92, HR 72, R 16, BP 88/31. WBC 39K. Hg 11.5. Plat 469. Sodium 151. Creat 1.8. Glu 541. CXR RLL infiltrate . Intubated in the ER. S/P PEA cardiac arrest Patient is seen today for: Acute hypoxic respiratory, severe sepsis with septic shock, LOC, Acute encephalopathy, s/p cardiac arrest (PEA) Seen and examined. 24 hour events reviewed. No acute overnight events, CT head repost and images reviewed. Neurology consult notes reviewed. Vitals, labs, medications reviewed. discussed in ICU-IDT rounds Objective - Exam Narrative Exam: General appearance: not in any distress, ETT to vent , no dyssynchrony Eyes: anicteric sclerae, moist conjunctivae; no lid-lag; pupils fixed and dilated, no gag, no cough reflexes. No response to keep sternal rub or nail bed pressure HENT: Atraumatic; oropharynx +ETT +NGT Neck: Trachea midline;+right submandibular wound with minimal induration and no drainage Lungs: CTA, with normal respiratory effort and no intercostal retractions , subcutaneous emphysema resolved CV:tachycardia, S1,S2 Abdomen: Soft, non-tender Extremities: BLExt edema + Skin: Normal temperature, turgor and texture; no rash, ulcers or subcutaneous nodules Psych:unresponsive Neuro:unrespopnsive Lines: right SC TLC Vital Signs - 12hr 11/16/17 11/16/17 11/16/17 20:45 21:00 21:15 Temperature Pulse Rate 66 66 64 Pulse Rate [ From Monitor] Respiratory 28 H 28 H 28 H Rate Blood Pressure 92/52 92/52 97/60 O2 Sat by Pulse 95 96 97 Oximetry 11/16/17 11/16/17 11/16/17 21:30 21:45 22:00 Temperature Pulse Rate 66 70 68 Pulse Rate [ From Monitor] Respiratory 28 H 28 H 28 H Rate Blood Pressure 97/60 88/49 88/49 O2 Sat by Pulse 96 94 97 Oximetry 11/16/17 11/16/17 11/16/17 22:15 22:30 22:45 Temperature Pulse Rate 66 64 64 Pulse Rate [ From Monitor] Respiratory 28 H 28 H 28 H Rate Blood Pressure 106/72 106/72 112/79 O2 Sat by Pulse 93 97 94 Oximetry 11/16/17 11/16/17 11/16/17 23:00 23:15 23:18 Temperature Pulse Rate 64 63 63 Pulse Rate [ From Monitor] Respiratory 28 H 28 H 28 H Rate Blood Pressure 112/79 114/82 114/82 O2 Sat by Pulse 98 95 98 Oximetry 11/16/17 11/16/17 11/17/17 23:30 23:45 00:00 Temperature 97.3 F L Pulse Rate 63 63 63 Pulse Rate [ From Monitor] Respiratory 28 H 28 H 28 H Rate Blood Pressure 114/82 113/81 113/81 O2 Sat by Pulse 98 94 98 Oximetry 11/17/17 11/17/17 11/17/17 00:15 00:30 00:45 Temperature Pulse Rate 63 63 63 Pulse Rate [ From Monitor] Respiratory 28 H 28 H 28 H Rate Blood Pressure 114/81 114/81 116/82 O2 Sat by Pulse 95 96 94 Oximetry 11/17/17 11/17/1711/17/18 01:00 01:16 01:30 Temperature Pulse Rate 65 62 61 Pulse Rate [ From Monitor] Respiratory 28 H 28 H 28 H Rate Blood Pressure 116/82 148/94 117/80 O2 Sat by Pulse 98 95 97 Oximetry 11/17/17 11/17/17 11/17/17 01:45 02:00 02:16 Temperature Pulse Rate 62 64 62 Pulse Rate [ From Monitor] Respiratory 28 H 28 H 28 H Rate Blood Pressure 118/83 120/86 110/77 O2 Sat by Pulse 96 96 Oximetry 11/17/17 11/17/17 11/17/17 02:30 02:45 03:00 Temperature Pulse Rate 62 68 68 Pulse Rate [ From Monitor] Respiratory 28 H 28 H 28 H Rate Blood Pressure 110/77 125/88 125/88 O2 Sat by Pulse 96 92 97 Oximetry 11/17/17 11/17/17 11/17/17 03:16 03:30 03:46 Temperature Pulse Rate 65 63 62 Pulse Rate [ From Monitor] Respiratory 28 H 28 H 28 H Rate Blood Pressure 119/82 119/82 115/81 O2 Sat by Pulse 93 95 95 Oximetry 11/17/17 11/17/17 11/17/17 03:48 04:00 04:01 Temperature 98.0 F Pulse Rate 63 Pulse Rate [ From Monitor] Respiratory 28 H Rate Blood Pressure 117/80 O2 Sat by Pulse 97 92 Oximetry 11/17/17 11/17/17 11/17/17 04:13 04:15 04:31 Temperature Pulse Rate 62 62 62 Pulse Rate [ From Monitor] Respiratory 26 H 26 H Rate Blood Pressure 117/80 117/80 115/80 O2 Sat by Pulse 94 92 Oximetry 11/17/17 11/17/17 11/17/17 04:45 05:01 05:15 Temperature Pulse Rate 61 62 60 Pulse Rate [ From Monitor] Respiratory 26 H 26 H 26 H Rate Blood Pressure 115/80 113/80 114/79 O2 Sat by Pulse 92 Oximetry 11/17/17 11/17/17 11/17/17 05:30 05:45 06:00 Temperature Pulse Rate 62 61 60 Pulse Rate [ From Monitor] Respiratory 26 H 26 H 26 H Rate Blood Pressure 112/78 109/77 114/79 O2 Sat by Pulse 93 92 Oximetry 11/17/17 11/17/17 11/17/17 06:15 06:30 06:45 Temperature Pulse Rate 60 60 60 Pulse Rate [ From Monitor] Respiratory 26 H 26 H 26 H Rate Blood Pressure 108/76 108/80 108/75 O2 Sat by Pulse 93 Oximetry 11/17/17 11/17/17 11/17/17 07:01 07:15 07:30 Temperature Pulse Rate 60 60 61 Pulse Rate [ From Monitor] Respiratory 26 H 26 H 26 H Rate Blood Pressure 112/76 112/76 110/78 O2 Sat by Pulse 93 93 Oximetry 11/17/17 11/17/17 11/17/17 07:45 08:00 08:15 Temperature 99.0 F Pulse Rate 60 62 61 Pulse Rate [ 61 From Monitor] Respiratory 26 H 26 H 26 H Rate Blood Pressure 110/78 112/78 112/77 O2 Sat by Pulse 94 Oximetry CBC and BMP: 11/17/17 05:15 11/18/17 05:30 ABG, PT/INR, D-dimer: ABG POC ABG pH 7.487 (7.35-7.45) H 11/17/17 04:16 POC ABG pCO2 37.3 (35-45) 11/17/17 04:16 POC ABG pO2 158 (80-105) H 11/17/17 04:16 POC ABG HCO3 28.3 11/17/17 04:16 POC ABG Total CO2 29 11/17/17 04:16 POC ABG O2 Sat 100 11/17/17 04:16 PT/INR, D-dimer PT 18.6 Sec. (12.2-14.9) H 11/17/17 05:15 INR 1.46 (0.87-1.13) H 11/17/17 05:15 Abnormal lab findings: Abnormal Labs 11/10/17 11/10/17 11/10/17 19:54 20:18 20:18 WBC 39.8 H RBC 3.59 L Hgb Hct MCV 117 H MCH MCHC 27 L RDW Plt Count 469 H Seg Neuts % (Manual) 93.5 H Lymphocytes % (Manual) 3.0 L Seg Neutrophils # Man 37.2 H Lymphocytes # (Manual) Monocytes # (Manual) 1.0 H Basophils # (Manual) 0.2 H PT 18.8 H INR 1.48 H POC ABG pH POC ABG pCO2 POC ABG pO2 VBG pH Sodium Potassium Chloride Carbon Dioxide BUN Creatinine Glucose POC Glucose 488 H Lactic Acid Calcium Phosphorus Magnesium AST ALT Alkaline Phosphatase Total Creatine Kinase CK-MB (CK-2) Troponin T C-Reactive Protein Total Protein Albumin Triglycerides HDL Cholesterol TSH Urine WBC (Auto) 11/10/17 11/10/17 11/10/17 20:18 20:18 20:18 WBC RBC Hgb Hct MCV MCH MCHC RDW Plt Count Seg Neuts % (Manual) Lymphocytes % (Manual) Seg Neutrophils # Man Lymphocytes # (Manual) Monocytes # (Manual) Basophils # (Manual) PT INR POC ABG pH POC ABG pCO2 POC ABG pO2 VBG pH 6.763 L* Sodium 125 L Potassium 7.5 H* Chloride 82.9 L Carbon Dioxide 2 L* BUN 33 H Creatinine 1.8 H Glucose 976 H* POC Glucose Lactic Acid 3.00 H* Calcium 7.6 L Phosphorus Magnesium AST ALT Alkaline Phosphatase Total Creatine Kinase CK-MB (CK-2) Troponin T C-Reactive Protein Total Protein 6.2 L Albumin 3.5 L Triglycerides HDL Cholesterol TSH Urine WBC (Auto) 11/10/17 11/10/17 11/10/17 20:35 20:35 22:07 WBC RBC Hgb Hct MCV MCH MCHC RDW Plt Count Seg Neuts % (Manual) Lymphocytes % (Manual) Seg Neutrophils # Man Lymphocytes # (Manual) Monocytes # (Manual) Basophils # (Manual) PT INR POC ABG pH POC ABG pCO2 POC ABG pO2 VBG pH Sodium 124 L Potassium 7.6 H* Chloride 82.0 L Carbon Dioxide 3 L* BUN 33 H Creatinine 1.8 H Glucose 977 H* POC Glucose 481 H Lactic Acid Calcium 7.8 L Phosphorus 9.40 H Magnesium 2.70 H AST ALT Alkaline Phosphatase Total Creatine Kinase CK-MB (CK-2) Troponin T C-Reactive Protein Total Protein Albumin Triglycerides HDL Cholesterol TSH Urine WBC (Auto) 11/10/17 11/10/17 11/10/17 23:06 23:06 23:15 WBC RBC Hgb Hct MCV MCH MCHC RDW Plt Count Seg Neuts % (Manual) Lymphocytes % (Manual) Seg Neutrophils # Man Lymphocytes # (Manual) Monocytes # (Manual) Basophils # (Manual) PT INR POC ABG pH POC ABG pCO2 POC ABG pO2 VBG pH Sodium 133 L D Potassium 5.6 H D Chloride 97.1 L Carbon Dioxide 3 L* BUN 32 H Creatinine 1.6 H Glucose 664 H* POC Glucose Lactic Acid 2.30 H* Calcium 6.8 L Phosphorus Magnesium AST ALT Alkaline Phosphatase Total Creatine Kinase CK-MB (CK-2) Troponin T C-Reactive Protein Total Protein Albumin Triglycerides HDL Cholesterol TSH 15.990 H Urine WBC (Auto) 11/10/17 11/10/17 11/11/17 23:29 Unknown 00:01 WBC RBC Hgb Hct MCV MCH MCHC RDW Plt Count Seg Neuts % (Manual) Lymphocytes % (Manual) Seg Neutrophils # Man Lymphocytes # (Manual) Monocytes # (Manual) Basophils # (Manual) PT INR POC ABG pH POC ABG pCO2 POC ABG pO2 VBG pH 6.881 L* Sodium Potassium Chloride Carbon Dioxide BUN Creatinine Glucose POC Glucose 481 H Lactic Acid Calcium Phosphorus Magnesium AST ALT Alkaline Phosphatase Total Creatine Kinase CK-MB (CK-2) Troponin T C-Reactive Protein Total Protein Albumin Triglycerides HDL Cholesterol TSH Urine WBC (Auto) 8.0 H 11/11/17 11/11/17 11/11/17 00:01 00:46 00:46 WBC RBC Hgb Hct MCV MCH MCHC RDW Plt Count Seg Neuts % (Manual) Lymphocytes % (Manual) Seg Neutrophils # Man Lymphocytes # (Manual) Monocytes # (Manual) Basophils # (Manual) PT INR POC ABG pH POC ABG pCO2 POC ABG pO2 VBG pH Sodium 135 L Potassium Chloride Carbon Dioxide 3 L* 5 L* BUN 32 H 32 H Creatinine 1.5 H 1.5 H Glucose 579 H* 560 H* POC Glucose Lactic Acid 2.40 H* Calcium 6.9 L 6.8 L Phosphorus Magnesium AST ALT Alkaline Phosphatase Total Creatine Kinase CK-MB (CK-2) Troponin T C-Reactive Protein Total Protein Albumin Triglycerides HDL Cholesterol TSH Urine WBC (Auto) 11/11/17 11/11/17 11/11/17 00:58 02:19 02:21 WBC RBC Hgb Hct MCV MCH MCHC RDW Plt Count Seg Neuts % (Manual) Lymphocytes % (Manual) Seg Neutrophils # Man Lymphocytes # (Manual) Monocytes # (Manual) Basophils # (Manual) PT INR POC ABG pH POC ABG pCO2 POC ABG pO2 VBG pH Sodium Potassium Chloride Carbon Dioxide BUN Creatinine Glucose POC Glucose > 500 H < 40 L 457 H Lactic Acid Calcium Phosphorus Magnesium AST ALT Alkaline Phosphatase Total Creatine Kinase CK-MB (CK-2) Troponin T C-Reactive Protein Total Protein Albumin Triglycerides HDL Cholesterol TSH Urine WBC (Auto) 11/11/17 11/11/17 11/11/17 03:31 03:45 03:45 WBC RBC Hgb Hct MCV MCH MCHC RDW Plt Count Seg Neuts % (Manual) Lymphocytes % (Manual) Seg Neutrophils # Man Lymphocytes # (Manual) Monocytes # (Manual) Basophils # (Manual) PT INR POC ABG pH POC ABG pCO2 POC ABG pO2 VBG pH Sodium 147 H D Potassium 2.9 L* D Chloride Carbon Dioxide 11 L BUN 31 H Creatinine 1.8 H Glucose 587 H* POC Glucose 436 H Lactic Acid 9.50 H* Calcium 6.4 L Phosphorus Magnesium AST ALT Alkaline Phosphatase Total Creatine Kinase CK-MB (CK-2) Troponin T C-Reactive Protein Total Protein Albumin Triglycerides HDL Cholesterol TSH Urine WBC (Auto) 11/11/17 11/11/17 11/11/17 04:16 04:45 05:50 WBC RBC Hgb Hct MCV MCH MCHC RDW Plt Count Seg Neuts % (Manual) Lymphocytes % (Manual) Seg Neutrophils # Man Lymphocytes # (Manual) Monocytes # (Manual) Basophils # (Manual) PT INR POC ABG pH 7.036 L POC ABG pCO2 POC ABG pO2 66 L VBG pH Sodium Potassium Chloride Carbon Dioxide BUN Creatinine Glucose POC Glucose 495 H > 500 H Lactic Acid Calcium Phosphorus Magnesium AST ALT Alkaline Phosphatase Total Creatine Kinase CK-MB (CK-2) Troponin T C-Reactive Protein Total Protein Albumin Triglycerides HDL Cholesterol TSH Urine WBC (Auto) 11/11/17 11/11/17 11/11/17 06:29 06:29 06:41 WBC RBC Hgb Hct MCV MCH MCHC RDW Plt Count Seg Neuts % (Manual) Lymphocytes % (Manual) Seg Neutrophils # Man Lymphocytes # (Manual) Monocytes # (Manual) Basophils # (Manual) PT INR POC ABG pH POC ABG pCO2 POC ABG pO2 VBG pH Sodium 149 H Potassium 3.0 L Chloride 109.5 H Carbon Dioxide 17 L BUN 31 H Creatinine 1.7 H Glucose 407 H POC Glucose 387 H Lactic Acid 2.60 H* Calcium 6.2 L Phosphorus Magnesium AST ALT Alkaline Phosphatase Total Creatine Kinase CK-MB (CK-2) Troponin T C-Reactive Protein Total Protein Albumin Triglycerides HDL Cholesterol TSH Urine WBC (Auto) 11/11/17 11/11/17 11/11/17 07:05 07:07 07:07 WBC RBC Hgb Hct MCV MCH MCHC RDW Plt Count Seg Neuts % (Manual) Lymphocytes % (Manual) Seg Neutrophils # Man Lymphocytes # (Manual) Monocytes # (Manual) Basophils # (Manual) PT INR POC ABG pH POC ABG pCO2 POC ABG pO2 VBG pH Sodium 151 H Potassium 3.0 L Chloride 107.5 H Carbon Dioxide 11 L BUN 31 H Creatinine 1.8 H Glucose 541 H* POC Glucose 378 H Lactic Acid Calcium 6.5 L Phosphorus Magnesium AST ALT Alkaline Phosphatase Total Creatine Kinase 686 H CK-MB (CK-2) 19.6 H Troponin T C-Reactive Protein Total Protein Albumin Triglycerides HDL Cholesterol TSH Urine WBC (Auto) 11/11/17 11/11/17 11/11/17 08:50 08:52 09:57 WBC RBC Hgb Hct MCV MCH MCHC RDW Plt Count Seg Neuts % (Manual) Lymphocytes % (Manual) Seg Neutrophils # Man Lymphocytes # (Manual) Monocytes # (Manual) Basophils # (Manual) PT INR POC ABG pH 7.175 L POC ABG pCO2 45.1 H POC ABG pO2 33 L VBG pH Sodium Potassium Chloride Carbon Dioxide BUN Creatinine Glucose POC Glucose 256 H 232 H Lactic Acid Calcium Phosphorus Magnesium AST ALT Alkaline Phosphatase Total Creatine Kinase CK-MB (CK-2) Troponin T C-Reactive Protein Total Protein Albumin Triglycerides HDL Cholesterol TSH Urine WBC (Auto) 11/11/17 11/11/17 11/11/17 10:45 10:45 11:08 WBC RBC Hgb Hct MCV MCH 33 H MCHC RDW Plt Count Seg Neuts % (Manual) Lymphocytes % (Manual) Seg Neutrophils # Man Lymphocytes # (Manual) Monocytes # (Manual) Basophils # (Manual) PT INR POC ABG pH 7.157 L POC ABG pCO2 52.2 H POC ABG pO2 31 L VBG pH Sodium Potassium Chloride Carbon Dioxide BUN Creatinine Glucose POC Glucose Lactic Acid Calcium Phosphorus Magnesium AST ALT Alkaline Phosphatase Total Creatine Kinase 1041 H CK-MB (CK-2) 31.9 H Troponin T 0.041 H D C-Reactive Protein Total Protein Albumin Triglycerides 510 H HDL Cholesterol 26 L TSH Urine WBC (Auto) 11/11/17 11/11/17 11/11/17 11:12 12:33 12:38 WBC RBC Hgb Hct MCV MCH MCHC RDW Plt Count Seg Neuts % (Manual) Lymphocytes % (Manual) Seg Neutrophils # Man Lymphocytes # (Manual) Monocytes # (Manual) Basophils # (Manual) PT INR POC ABG pH 7.258 L POC ABG pCO2 94.5 H POC ABG pO2 50 L VBG pH Sodium Potassium Chloride Carbon Dioxide BUN Creatinine Glucose POC Glucose 246 H 265 H Lactic Acid Calcium Phosphorus Magnesium AST ALT Alkaline Phosphatase Total Creatine Kinase CK-MB (CK-2) Troponin T C-Reactive Protein Total Protein Albumin Triglycerides HDL Cholesterol TSH Urine WBC (Auto) 11/11/17 11/11/17 11/11/17 12:40 12:40 12:40 WBC RBC Hgb Hct MCV MCH MCHC RDW Plt Count Seg Neuts % (Manual) Lymphocytes % (Manual) Seg Neutrophils # Man Lymphocytes # (Manual) Monocytes # (Manual) Basophils # (Manual) PT INR POC ABG pH POC ABG pCO2 POC ABG pO2 VBG pH Sodium 171 H* D Potassium 2.9 L* Chloride 118.2 H Carbon Dioxide 39 H D BUN 28 H Creatinine 1.8 H Glucose 301 H POC Glucose Lactic Acid 11.70 H* Calcium 11.4 H D Phosphorus Magnesium AST ALT Alkaline Phosphatase Total Creatine Kinase CK-MB (CK-2) Troponin T C-Reactive Protein 7.40 H Total Protein Albumin Triglycerides HDL Cholesterol TSH Urine WBC (Auto) 11/11/17 11/11/17 11/11/17 13:58 14:53 15:42 WBC RBC Hgb Hct MCV MCH MCHC RDW Plt Count Seg Neuts % (Manual) Lymphocytes % (Manual) Seg Neutrophils # Man Lymphocytes # (Manual) Monocytes # (Manual) Basophils # (Manual) PT INR POC ABG pH POC ABG pCO2 POC ABG pO2 VBG pH Sodium Potassium Chloride Carbon Dioxide BUN Creatinine Glucose POC Glucose 244 H 273 H 311 H Lactic Acid Calcium Phosphorus Magnesium AST ALT Alkaline Phosphatase Total Creatine Kinase CK-MB (CK-2) Troponin T C-Reactive Protein Total Protein Albumin Triglycerides HDL Cholesterol TSH Urine WBC (Auto) 11/11/17 11/11/17 11/11/17 16:08 17:09 18:41 WBC RBC Hgb Hct MCV MCH MCHC RDW Plt Count Seg Neuts % (Manual) Lymphocytes % (Manual) Seg Neutrophils # Man Lymphocytes # (Manual) Monocytes # (Manual) Basophils # (Manual) PT INR POC ABG pH POC ABG pCO2 POC ABG pO2 VBG pH Sodium 153 H D Potassium 3.3 L Chloride 112.6 H Carbon Dioxide 14 L D BUN 30 H Creatinine 2.1 H Glucose 301 H POC Glucose 337 H 262 H Lactic Acid Calcium 7.8 L D Phosphorus Magnesium AST ALT Alkaline Phosphatase Total Creatine Kinase CK-MB (CK-2) Troponin T C-Reactive Protein Total Protein Albumin Triglycerides HDL Cholesterol TSH Urine WBC (Auto) 11/11/17 11/11/17 11/11/17 19:49 20:14 20:25 WBC RBC Hgb Hct MCV MCH MCHC RDW Plt Count Seg Neuts % (Manual) Lymphocytes % (Manual) Seg Neutrophils # Man Lymphocytes # (Manual) Monocytes # (Manual) Basophils # (Manual) PT INR POC ABG pH POC ABG pCO2 POC ABG pO2 VBG pH Sodium 154 H Potassium 2.7 L* Chloride 110.8 H Carbon Dioxide 20 L BUN 31 H Creatinine 2.4 H Glucose 261 H POC Glucose 281 H 265 H Lactic Acid Calcium 7.9 L Phosphorus Magnesium AST ALT Alkaline Phosphatase Total Creatine Kinase CK-MB (CK-2) Troponin T C-Reactive Protein Total Protein Albumin Triglycerides HDL Cholesterol TSH Urine WBC (Auto) 11/11/17 11/11/17 11/11/17 20:53 21:55 23:17 WBC RBC Hgb Hct MCV MCH MCHC RDW Plt Count Seg Neuts % (Manual) Lymphocytes % (Manual) Seg Neutrophils # Man Lymphocytes # (Manual) Monocytes # (Manual) Basophils # (Manual) PT INR POC ABG pH POC ABG pCO2 POC ABG pO2 VBG pH Sodium Potassium Chloride Carbon Dioxide BUN Creatinine Glucose POC Glucose 274 H 209 H 180 H Lactic Acid Calcium Phosphorus Magnesium AST ALT Alkaline Phosphatase Total Creatine Kinase CK-MB (CK-2) Troponin T C-Reactive Protein Total Protein Albumin Triglycerides HDL Cholesterol TSH Urine WBC (Auto) 11/12/17 11/12/17 11/12/17 00:09 00:26 01:12 WBC RBC Hgb Hct MCV MCH MCHC RDW Plt Count Seg Neuts % (Manual) Lymphocytes % (Manual) Seg Neutrophils # Man Lymphocytes # (Manual) Monocytes # (Manual) Basophils # (Manual) PT INR POC ABG pH POC ABG pCO2 POC ABG pO2 VBG pH Sodium 154 H Potassium Chloride 113.1 H Carbon Dioxide 17 L BUN 34 H Creatinine 2.5 H Glucose 144 H POC Glucose 176 H 148 H Lactic Acid Calcium 7.7 L Phosphorus Magnesium AST ALT Alkaline Phosphatase Total Creatine Kinase CK-MB (CK-2) Troponin T C-Reactive Protein Total Protein Albumin Triglycerides HDL Cholesterol TSH Urine WBC (Auto) 11/12/17 11/12/17 11/12/17 02:05 03:27 04:22 WBC RBC Hgb Hct MCV MCH MCHC RDW Plt Count Seg Neuts % (Manual) Lymphocytes % (Manual) Seg Neutrophils # Man Lymphocytes # (Manual) Monocytes # (Manual) Basophils # (Manual) PT INR POC ABG pH POC ABG pCO2 POC ABG pO2 VBG pH Sodium Potassium Chloride Carbon Dioxide BUN Creatinine Glucose POC Glucose 148 H 156 H 137 H Lactic Acid Calcium Phosphorus Magnesium AST ALT Alkaline Phosphatase Total Creatine Kinase CK-MB (CK-2) Troponin T C-Reactive Protein Total Protein Albumin Triglycerides HDL Cholesterol TSH Urine WBC (Auto) 11/12/17 11/12/17 11/12/17 04:42 05:06 05:34 WBC RBC Hgb Hct MCV MCH MCHC RDW Plt Count Seg Neuts % (Manual) Lymphocytes % (Manual) Seg Neutrophils # Man Lymphocytes # (Manual) Monocytes # (Manual) Basophils # (Manual) PT INR POC ABG pH POC ABG pCO2 POC ABG pO2 56 L VBG pH Sodium 154 H Potassium 3.2 L D Chloride 109.8 H Carbon Dioxide BUN 32 H Creatinine 2.6 H Glucose 157 H POC Glucose 163 H Lactic Acid Calcium 7.3 L Phosphorus Magnesium AST ALT Alkaline Phosphatase Total Creatine Kinase CK-MB (CK-2) Troponin T C-Reactive Protein Total Protein Albumin Triglycerides HDL Cholesterol TSH Urine WBC (Auto) 11/12/17 11/12/17 11/12/17 05:42 06:23 06:36 WBC RBC Hgb Hct MCV MCH MCHC RDW Plt Count Seg Neuts % (Manual) Lymphocytes % (Manual) Seg Neutrophils # Man Lymphocytes # (Manual) Monocytes # (Manual) Basophils # (Manual) PT INR POC ABG pH POC ABG pCO2 POC ABG pO2 VBG pH Sodium Potassium Chloride Carbon Dioxide BUN Creatinine Glucose POC Glucose 166 H 171 H 181 H Lactic Acid Calcium Phosphorus Magnesium AST ALT Alkaline Phosphatase Total Creatine Kinase CK-MB (CK-2) Troponin T C-Reactive Protein Total Protein Albumin Triglycerides HDL Cholesterol TSH Urine WBC (Auto) 11/12/17 11/12/17 11/12/17 07:07 08:16 09:10 WBC RBC Hgb Hct MCV MCH MCHC RDW Plt Count Seg Neuts % (Manual) Lymphocytes % (Manual) Seg Neutrophils # Man Lymphocytes # (Manual) Monocytes # (Manual) Basophils # (Manual) PT INR POC ABG pH POC ABG pCO2 POC ABG pO2 VBG pH Sodium Potassium Chloride Carbon Dioxide BUN Creatinine Glucose POC Glucose 170 H 171 H 170 H Lactic Acid Calcium Phosphorus Magnesium AST ALT Alkaline Phosphatase Total Creatine Kinase CK-MB (CK-2) Troponin T C-Reactive Protein Total Protein Albumin Triglycerides HDL Cholesterol TSH Urine WBC (Auto) 11/12/17 11/12/17 11/12/17 11:12 12:13 12:13 WBC RBC Hgb Hct MCV MCH MCHC RDW Plt Count Seg Neuts % (Manual) Lymphocytes % (Manual) Seg Neutrophils # Man Lymphocytes # (Manual) Monocytes # (Manual) Basophils # (Manual) PT INR POC ABG pH 7.316 L POC ABG pCO2 57.4 H POC ABG pO2 46 L VBG pH Sodium Potassium Chloride Carbon Dioxide BUN Creatinine Glucose POC Glucose 145 H 123 H Lactic Acid Calcium Phosphorus Magnesium AST ALT Alkaline Phosphatase Total Creatine Kinase CK-MB (CK-2) Troponin T C-Reactive Protein Total Protein Albumin Triglycerides HDL Cholesterol TSH Urine WBC (Auto) 11/12/17 11/12/17 11/12/17 14:52 18:05 18:05 WBC 29.0 H RBC 3.15 L Hgb Hct 29.4 L D MCV MCH MCHC 35 H RDW Plt Count 115 L Seg Neuts % (Manual) 90.0 H Lymphocytes % (Manual) 6.0 L Seg Neutrophils # Man 26.1 H Lymphocytes # (Manual) Monocytes # (Manual) 1.2 H Basophils # (Manual) PT INR POC ABG pH POC ABG pCO2 POC ABG pO2 VBG pH Sodium 148 H Potassium Chloride Carbon Dioxide BUN 34 H Creatinine 2.9 H Glucose 147 H POC Glucose 139 H Lactic Acid Calcium 6.6 L Phosphorus Magnesium AST ALT Alkaline Phosphatase Total Creatine Kinase CK-MB (CK-2) Troponin T C-Reactive Protein Total Protein Albumin Triglycerides HDL Cholesterol TSH Urine WBC (Auto) 11/12/17 11/12/17 11/12/17 18:19 18:23 18:45 WBC RBC Hgb Hct MCV MCH MCHC RDW Plt Count Seg Neuts % (Manual) Lymphocytes % (Manual) Seg Neutrophils # Man Lymphocytes # (Manual) Monocytes # (Manual) Basophils # (Manual) PT INR POC ABG pH 7.248 L 7.253 L POC ABG pCO2 61.4 H 58.2 H POC ABG pO2 24 L 56 L VBG pH Sodium Potassium Chloride Carbon Dioxide BUN Creatinine Glucose POC Glucose 154 H Lactic Acid Calcium Phosphorus Magnesium AST ALT Alkaline Phosphatase Total Creatine Kinase CK-MB (CK-2) Troponin T C-Reactive Protein Total Protein Albumin Triglycerides HDL Cholesterol TSH Urine WBC (Auto) 11/12/17 11/12/17 11/12/17 19:08 20:12 21:14 WBC RBC Hgb Hct MCV MCH MCHC RDW Plt Count Seg Neuts % (Manual) Lymphocytes % (Manual) Seg Neutrophils # Man Lymphocytes # (Manual) Monocytes # (Manual) Basophils # (Manual) PT INR POC ABG pH POC ABG pCO2 POC ABG pO2 VBG pH Sodium Potassium Chloride Carbon Dioxide BUN Creatinine Glucose POC Glucose 154 H 155 H 130 H Lactic Acid Calcium Phosphorus Magnesium AST ALT Alkaline Phosphatase Total Creatine Kinase CK-MB (CK-2) Troponin T C-Reactive Protein Total Protein Albumin Triglycerides HDL Cholesterol TSH Urine WBC (Auto) 11/12/17 11/12/17 11/13/17 21:30 22:08 01:17 WBC RBC Hgb Hct MCV MCH MCHC RDW Plt Count Seg Neuts % (Manual) Lymphocytes % (Manual) Seg Neutrophils # Man Lymphocytes # (Manual) Monocytes # (Manual) Basophils # (Manual) PT INR POC ABG pH 7.220 L POC ABG pCO2 57.4 H POC ABG pO2 50 L VBG pH Sodium 146 H Potassium Chloride Carbon Dioxide BUN 35 H Creatinine 3.2 H Glucose 120 H POC Glucose 108 H Lactic Acid Calcium 6.3 L Phosphorus Magnesium AST ALT Alkaline Phosphatase Total Creatine Kinase CK-MB (CK-2) Troponin T C-Reactive Protein Total Protein Albumin Triglycerides HDL Cholesterol TSH Urine WBC (Auto) 11/13/17 11/13/17 11/13/17 01:30 01:33 03:31 WBC RBC Hgb Hct MCV MCH MCHC RDW Plt Count Seg Neuts % (Manual) Lymphocytes % (Manual) Seg Neutrophils # Man Lymphocytes # (Manual) Monocytes # (Manual) Basophils # (Manual) PT INR POC ABG pH POC ABG pCO2 POC ABG pO2 VBG pH Sodium 146 H Potassium Chloride Carbon Dioxide BUN 36 H Creatinine 3.4 H Glucose 143 H POC Glucose 117 H 123 H Lactic Acid Calcium 6.0 L Phosphorus Magnesium AST ALT Alkaline Phosphatase Total Creatine Kinase CK-MB (CK-2) Troponin T C-Reactive Protein Total Protein Albumin Triglycerides HDL Cholesterol TSH Urine WBC (Auto) 11/13/17 11/13/17 11/13/17 04:25 05:14 06:00 WBC RBC Hgb Hct MCV MCH MCHC RDW Plt Count Seg Neuts % (Manual) Lymphocytes % (Manual) Seg Neutrophils # Man Lymphocytes # (Manual) Monocytes # (Manual) Basophils # (Manual) PT INR POC ABG pH POC ABG pCO2 POC ABG pO2 VBG pH Sodium Potassium Chloride Carbon Dioxide BUN 39 H Creatinine 3.8 H Glucose 182 H POC Glucose 161 H 163 H Lactic Acid Calcium 6.6 L Phosphorus 4.90 H Magnesium 1.20 L AST ALT Alkaline Phosphatase Total Creatine Kinase CK-MB (CK-2) Troponin T C-Reactive Protein Total Protein Albumin Triglycerides HDL Cholesterol TSH Urine WBC (Auto) 11/13/17 11/13/17 11/13/17 06:00 06:07 06:24 WBC 32.3 H RBC 3.40 L Hgb Hct MCV MCH MCHC RDW Plt Count 99 L Seg Neuts % (Manual) Lymphocytes % (Manual) Seg Neutrophils # Man Lymphocytes # (Manual) Monocytes # (Manual) Basophils # (Manual) PT INR POC ABG pH 7.199 L POC ABG pCO2 58.3 H POC ABG pO2 70 L VBG pH Sodium Potassium Chloride Carbon Dioxide BUN Creatinine Glucose POC Glucose 171 H Lactic Acid Calcium Phosphorus Magnesium AST ALT Alkaline Phosphatase Total Creatine Kinase CK-MB (CK-2) Troponin T C-Reactive Protein Total Protein Albumin Triglycerides HDL Cholesterol TSH Urine WBC (Auto) 11/13/17 11/13/17 11/13/17 07:42 08:55 09:25 WBC RBC Hgb Hct MCV MCH MCHC RDW Plt Count Seg Neuts % (Manual) Lymphocytes % (Manual) Seg Neutrophils # Man Lymphocytes # (Manual) Monocytes # (Manual) Basophils # (Manual) PT INR POC ABG pH POC ABG pCO2 POC ABG pO2 VBG pH Sodium Potassium Chloride Carbon Dioxide BUN Creatinine Glucose POC Glucose 132 H 143 H 123 H Lactic Acid Calcium Phosphorus Magnesium AST ALT Alkaline Phosphatase Total Creatine Kinase CK-MB (CK-2) Troponin T C-Reactive Protein Total Protein Albumin Triglycerides HDL Cholesterol TSH Urine WBC (Auto) 11/13/17 11/13/17 11/13/17 10:01 10:30 11:06 WBC RBC Hgb Hct MCV MCH MCHC RDW Plt Count Seg Neuts % (Manual) Lymphocytes % (Manual) Seg Neutrophils # Man Lymphocytes # (Manual) Monocytes # (Manual) Basophils # (Manual) PT INR POC ABG pH POC ABG pCO2 POC ABG pO2 VBG pH Sodium Potassium Chloride Carbon Dioxide BUN 41 H Creatinine 4.0 H Glucose 127 H POC Glucose 122 H 129 H Lactic Acid Calcium 6.6 L Phosphorus Magnesium AST ALT Alkaline Phosphatase Total Creatine Kinase CK-MB (CK-2) Troponin T C-Reactive Protein Total Protein Albumin Triglycerides HDL Cholesterol TSH Urine WBC (Auto) 11/13/17 11/13/17 11/13/17 12:01 12:08 14:59 WBC RBC Hgb Hct MCV MCH MCHC RDW Plt Count Seg Neuts % (Manual) Lymphocytes % (Manual) Seg Neutrophils # Man Lymphocytes # (Manual) Monocytes # (Manual) Basophils # (Manual) PT INR POC ABG pH 7.307 L POC ABG pCO2 52.9 H POC ABG pO2 VBG pH Sodium Potassium Chloride Carbon Dioxide BUN Creatinine Glucose POC Glucose 122 H 112 H Lactic Acid Calcium Phosphorus Magnesium AST ALT Alkaline Phosphatase Total Creatine Kinase CK-MB (CK-2) Troponin T C-Reactive Protein Total Protein Albumin Triglycerides HDL Cholesterol TSH Urine WBC (Auto) 11/13/17 11/13/17 11/13/17 16:15 17:58 19:08 WBC RBC Hgb Hct MCV MCH MCHC RDW Plt Count Seg Neuts % (Manual) Lymphocytes % (Manual) Seg Neutrophils # Man Lymphocytes # (Manual) Monocytes # (Manual) Basophils # (Manual) PT INR POC ABG pH POC ABG pCO2 POC ABG pO2 VBG pH Sodium Potassium 5.1 H D Chloride Carbon Dioxide BUN 44 H Creatinine 4.3 H Glucose 117 H POC Glucose 128 H 110 H Lactic Acid Calcium 7.0 L Phosphorus Magnesium AST ALT Alkaline Phosphatase Total Creatine Kinase CK-MB (CK-2) Troponin T C-Reactive Protein Total Protein Albumin Triglycerides HDL Cholesterol TSH Urine WBC (Auto) 11/13/17 11/13/17 11/13/17 19:59 20:22 21:05 WBC RBC Hgb Hct MCV MCH MCHC RDW Plt Count Seg Neuts % (Manual) Lymphocytes % (Manual) Seg Neutrophils # Man Lymphocytes # (Manual) Monocytes # (Manual) Basophils # (Manual) PT INR POC ABG pH POC ABG pCO2 POC ABG pO2 VBG pH Sodium Potassium Chloride Carbon Dioxide BUN 48 H Creatinine 4.5 H Glucose 181 H POC Glucose 180 H 134 H Lactic Acid Calcium 7.0 L Phosphorus Magnesium AST ALT Alkaline Phosphatase Total Creatine Kinase CK-MB (CK-2) Troponin T C-Reactive Protein Total Protein Albumin Triglycerides HDL Cholesterol TSH Urine WBC (Auto) 11/13/17 11/13/17 11/14/17 22:04 23:08 00:08 WBC RBC Hgb Hct MCV MCH MCHC RDW Plt Count Seg Neuts % (Manual) Lymphocytes % (Manual) Seg Neutrophils # Man Lymphocytes # (Manual) Monocytes # (Manual) Basophils # (Manual) PT INR POC ABG pH POC ABG pCO2 POC ABG pO2 VBG pH Sodium Potassium Chloride Carbon Dioxide BUN Creatinine Glucose POC Glucose 135 H 143 H 121 H Lactic Acid Calcium Phosphorus Magnesium AST ALT Alkaline Phosphatase Total Creatine Kinase CK-MB (CK-2) Troponin T C-Reactive Protein Total Protein Albumin Triglycerides HDL Cholesterol TSH Urine WBC (Auto) 11/14/17 11/14/17 11/14/17 00:37 01:07 01:27 WBC RBC Hgb Hct MCV MCH MCHC RDW Plt Count Seg Neuts % (Manual) Lymphocytes % (Manual) Seg Neutrophils # Man Lymphocytes # (Manual) Monocytes # (Manual) Basophils # (Manual) PT INR POC ABG pH 7.308 L POC ABG pCO2 POC ABG pO2 161 H VBG pH Sodium Potassium 5.2 H Chloride Carbon Dioxide BUN 49 H Creatinine 4.6 H Glucose 123 H POC Glucose 106 H Lactic Acid Calcium 6.5 L Phosphorus Magnesium AST ALT Alkaline Phosphatase Total Creatine Kinase CK-MB (CK-2) Troponin T C-Reactive Protein Total Protein Albumin Triglycerides HDL Cholesterol TSH Urine WBC (Auto) 11/14/17 11/14/17 11/14/17 02:20 03:09 04:00 WBC RBC Hgb Hct MCV MCH MCHC RDW Plt Count Seg Neuts % (Manual) Lymphocytes % (Manual) Seg Neutrophils # Man Lymphocytes # (Manual) Monocytes # (Manual) Basophils # (Manual) PT INR POC ABG pH POC ABG pCO2 POC ABG pO2 VBG pH Sodium Potassium 5.5 H Chloride Carbon Dioxide BUN 51 H Creatinine 4.5 H Glucose 181 H POC Glucose 130 H 126 H Lactic Acid Calcium 6.6 L Phosphorus Magnesium AST ALT Alkaline Phosphatase Total Creatine Kinase CK-MB (CK-2) Troponin T C-Reactive Protein Total Protein Albumin Triglycerides HDL Cholesterol TSH Urine WBC (Auto) 11/14/17 11/14/17 11/14/17 04:00 04:36 06:29 WBC 31.6 H RBC 3.39 L Hgb Hct MCV MCH MCHC RDW 15.3 H Plt Count 87 L Seg Neuts % (Manual) Lymphocytes % (Manual) Seg Neutrophils # Man Lymphocytes # (Manual) Monocytes # (Manual) Basophils # (Manual) PT INR POC ABG pH POC ABG pCO2 POC ABG pO2 VBG pH Sodium Potassium Chloride Carbon Dioxide BUN Creatinine Glucose POC Glucose 135 H 166 H Lactic Acid Calcium Phosphorus Magnesium AST ALT Alkaline Phosphatase Total Creatine Kinase CK-MB (CK-2) Troponin T C-Reactive Protein Total Protein Albumin Triglycerides HDL Cholesterol TSH Urine WBC (Auto) 11/14/17 11/14/17 11/14/17 12:02 12:45 12:45 WBC RBC Hgb Hct MCV MCH MCHC RDW Plt Count Seg Neuts % (Manual) Lymphocytes % (Manual) Seg Neutrophils # Man Lymphocytes # (Manual) Monocytes # (Manual) Basophils # (Manual) PT 20.8 H INR 1.68 H POC ABG pH POC ABG pCO2 POC ABG pO2 VBG pH Sodium Potassium 5.5 H Chloride Carbon Dioxide 19 L BUN 58 H Creatinine 4.8 H Glucose 313 H POC Glucose 222 H Lactic Acid Calcium 6.4 L Phosphorus Magnesium AST ALT Alkaline Phosphatase Total Creatine Kinase CK-MB (CK-2) Troponin T C-Reactive Protein Total Protein Albumin Triglycerides HDL Cholesterol TSH Urine WBC (Auto) 11/14/17 11/14/17 11/14/17 16:34 18:12 23:15 WBC RBC Hgb Hct MCV MCH MCHC RDW Plt Count Seg Neuts % (Manual) Lymphocytes % (Manual) Seg Neutrophils # Man Lymphocytes # (Manual) Monocytes # (Manual) Basophils # (Manual) PT INR POC ABG pH POC ABG pCO2 POC ABG pO2 VBG pH Sodium Potassium Chloride Carbon Dioxide 17 L BUN 63 H Creatinine 5.1 H Glucose 368 H POC Glucose 381 H 434 H Lactic Acid Calcium 6.4 L Phosphorus Magnesium AST ALT Alkaline Phosphatase Total Creatine Kinase CK-MB (CK-2) Troponin T C-Reactive Protein Total Protein Albumin Triglycerides HDL Cholesterol TSH Urine WBC (Auto) 11/14/17 11/15/17 11/15/17 Unknown 00:51 04:23 WBC RBC Hgb Hct MCV MCH MCHC RDW Plt Count Seg Neuts % (Manual) Lymphocytes % (Manual) Seg Neutrophils # Man Lymphocytes # (Manual) Monocytes # (Manual) Basophils # (Manual) PT INR POC ABG pH 7.287 L POC ABG pCO2 POC ABG pO2 141 H VBG pH Sodium Potassium Chloride Carbon Dioxide BUN Creatinine Glucose POC Glucose 415 H Lactic Acid 2.80 H* Calcium Phosphorus Magnesium AST ALT Alkaline Phosphatase Total Creatine Kinase CK-MB (CK-2) Troponin T C-Reactive Protein Total Protein Albumin Triglycerides HDL Cholesterol TSH Urine WBC (Auto) 11/15/17 11/15/17 11/15/17 05:00 05:43 10:00 WBC 12.0 H RBC 2.23 L Hgb 7.2 L D Hct 21.7 L D MCV MCH MCHC RDW Plt Count 64 L Seg Neuts % (Manual) 79.0 H Lymphocytes % (Manual) 4.0 L Seg Neutrophils # Man 9.5 H Lymphocytes # (Manual) 0.5 L Monocytes # (Manual) Basophils # (Manual) PT INR POC ABG pH POC ABG pCO2 POC ABG pO2 VBG pH Sodium Potassium Chloride Carbon Dioxide 18 L BUN 73 H Creatinine 5.3 H Glucose 461 H POC Glucose 416 H Lactic Acid Calcium 6.7 L Phosphorus Magnesium AST ALT Alkaline Phosphatase Total Creatine Kinase CK-MB (CK-2) Troponin T C-Reactive Protein Total Protein Albumin Triglycerides HDL Cholesterol TSH Urine WBC (Auto) 11/15/17 11/15/17 11/15/17 10:00 12:24 18:42 WBC RBC Hgb Hct MCV MCH MCHC RDW Plt Count Seg Neuts % (Manual) Lymphocytes % (Manual) Seg Neutrophils # Man Lymphocytes # (Manual) Monocytes # (Manual) Basophils # (Manual) PT INR POC ABG pH POC ABG pCO2 POC ABG pO2 VBG pH Sodium Potassium Chloride Carbon Dioxide 21 L BUN 76 H Creatinine 5.7 H Glucose 386 H POC Glucose 374 H 343 H Lactic Acid Calcium 6.9 L Phosphorus Magnesium AST ALT Alkaline Phosphatase Total Creatine Kinase CK-MB (CK-2) Troponin T C-Reactive Protein Total Protein Albumin Triglycerides HDL Cholesterol TSH Urine WBC (Auto) 11/16/17 11/16/17 11/16/17 00:00 04:19 04:40 WBC RBC 2.60 L Hgb 8.5 L Hct 24.4 L MCV MCH 33 H MCHC 35 H RDW Plt Count 65 L Seg Neuts % (Manual) 92.0 H Lymphocytes % (Manual) 2.0 L Seg Neutrophils # Man 10.0 H Lymphocytes # (Manual) 0.2 L Monocytes # (Manual) Basophils # (Manual) PT INR POC ABG pH POC ABG pCO2 POC ABG pO2 66 L VBG pH Sodium Potassium Chloride Carbon Dioxide BUN Creatinine Glucose POC Glucose 205 H Lactic Acid Calcium Phosphorus Magnesium AST ALT Alkaline Phosphatase Total Creatine Kinase CK-MB (CK-2) Troponin T C-Reactive Protein Total Protein Albumin Triglycerides HDL Cholesterol TSH Urine WBC (Auto) 11/16/17 11/16/17 11/16/17 04:40 05:14 14:08 WBC RBC Hgb Hct MCV MCH MCHC RDW Plt Count Seg Neuts % (Manual) Lymphocytes % (Manual) Seg Neutrophils # Man Lymphocytes # (Manual) Monocytes # (Manual) Basophils # (Manual) PT INR POC ABG pH POC ABG pCO2 POC ABG pO2 VBG pH Sodium Potassium 3.2 L Chloride Carbon Dioxide BUN 48 H Creatinine 3.7 H Glucose 142 H POC Glucose 139 H 201 H Lactic Acid Calcium 8.0 L D Phosphorus Magnesium AST 2275 H ALT 647 H Alkaline Phosphatase 268 H Total Creatine Kinase 363 H CK-MB (CK-2) Troponin T C-Reactive Protein Total Protein 3.9 L Albumin 2.1 L Triglycerides HDL Cholesterol TSH Urine WBC (Auto) 11/16/17 11/16/17 11/17/17 18:51 23:48 04:16 WBC RBC Hgb Hct MCV MCH MCHC RDW Plt Count Seg Neuts % (Manual) Lymphocytes % (Manual) Seg Neutrophils # Man Lymphocytes # (Manual) Monocytes # (Manual) Basophils # (Manual) PT INR POC ABG pH 7.487 H POC ABG pCO2 POC ABG pO2 158 H VBG pH Sodium Potassium Chloride Carbon Dioxide BUN Creatinine Glucose POC Glucose 130 H 138 H Lactic Acid Calcium Phosphorus Magnesium AST ALT Alkaline Phosphatase Total Creatine Kinase CK-MB (CK-2) Troponin T C-Reactive Protein Total Protein Albumin Triglycerides HDL Cholesterol TSH Urine WBC (Auto) 11/17/17 11/17/17 11/17/17 05:15 05:15 05:15 WBC RBC 2.58 L Hgb 8.3 L Hct 24.4 L MCV MCH MCHC RDW Plt Count 49 L Seg Neuts % (Manual) 83.0 H Lymphocytes % (Manual) 4.0 L Seg Neutrophils # Man Lymphocytes # (Manual) 0.4 L Monocytes # (Manual) Basophils # (Manual) PT 18.6 H INR 1.46 H POC ABG pH POC ABG pCO2 POC ABG pO2 VBG pH Sodium Potassium 3.4 L Chloride Carbon Dioxide BUN 70 H Creatinine 4.6 H Glucose 107 H POC Glucose Lactic Acid Calcium 7.5 L Phosphorus Magnesium AST 2722 H ALT 504 H Alkaline Phosphatase 278 H Total Creatine Kinase CK-MB (CK-2) Troponin T C-Reactive Protein Total Protein 3.8 L Albumin 2.3 L Triglycerides HDL Cholesterol TSH Urine WBC (Auto) 11/17/17 06:07 WBC RBC Hgb Hct MCV MCH MCHC RDW Plt Count Seg Neuts % (Manual) Lymphocytes % (Manual) Seg Neutrophils # Man Lymphocytes # (Manual) Monocytes # (Manual) Basophils # (Manual) PT INR POC ABG pH POC ABG pCO2 POC ABG pO2 VBG pH Sodium Potassium Chloride Carbon Dioxide BUN Creatinine Glucose POC Glucose 126 H Lactic Acid Calcium Phosphorus Magnesium AST ALT Alkaline Phosphatase Total Creatine Kinase CK-MB (CK-2) Troponin T C-Reactive Protein Total Protein Albumin Triglycerides HDL Cholesterol TSH Urine WBC (Auto) Allied health notes reviewed: RT
[2017-11-17] MEDS: DIFLUCAN 200 MG/100 ML BAG IV SCH (09:16)
[2017-11-17] MEDS: LANTUS SUB-Q SCH (09:17)
--- NOTE | 2017-11-17 09:24 | Progress Note ---
Assessment and Plan Cont supportive measures. Pt with suspected severe anoxic brain injury per neurology. Overall poor prognosis. Nothing further to add from cardiology standpoint at this time. Will follow on as needed basis. The patient has been seen in conjunction with Dr. Anmol Zaragoza who agrees with the assessment and plan of care. - Patient Problems (1) Cardiopulmonary arrest with successful resuscitation Current Visit: Yes Status: Acute (2) Cardiac arrest with ventricular fibrillation Current Visit: Yes Status: Acute (3) Acute respiratory failure requiring reintubation Current Visit: Yes Status: Acute (4) Pneumonia Current Visit: Yes Status: Acute (5) Septic shock Current Visit: Yes Status: Acute (6) DKA (diabetic ketoacidoses) Current Visit: Yes Status: Acute (7) Metabolic acidosis Current Visit: Yes Status: Acute (8) Altered mental status Current Visit: Yes Status: Acute (9) Acute renal failure Current Visit: Yes Status: Acute (10) Hyperkalemia Current Visit: Yes Status: Resolved (11) Elevated TSH Current Visit: Yes Status: Acute Subjective Date of service: 11/17/17 Principal diagnosis: s/p cardiac arrest Interval history: pt remains intubated, nonresponsive. in SR on tele with no arrhythmias noted overnight. currently weaned off vasopressors. no family at bedside. Objective Last Vital Signs Temp 99.0 F 11/17/17 08:00 Pulse 61 11/17/17 09:00 Resp 26 H 11/17/17 09:00 BP 110/77 11/17/17 09:00 Pulse Ox 92 11/17/17 09:00 - Physical Examination General: Other (intubated, nonresponsive) HEENT: Positive: Other (dilated 5 mm) Neck: Positive: neck supple, trachea midline Cardiac: Positive: Reg Rate and Rhythm, S1/S2 Neuro: Positive: Grossly Intact, Other (intubated, nonresponsive) Abdomen: Positive: Soft Extremities: Absent: edema - Labs and Meds Cardiac Enzymes 11/17/17 Range/Units 05:15 AST 2722 H (5-40) units/L Coagulation 11/17/17 Range/Units 05:15 PT 18.6 H (12.2-14.9) Sec. INR 1.46 H (0.87-1.13) CBC 11/17/17 Range/Units 05:15 WBC 8.9 (4.5-11.0) K/mm3 RBC 2.58 L (3.65-5.03) M/mm3 Hgb 8.3 L (10.1-14.3) gm/dl Hct 24.4 L (30.3-42.9) % Plt Count 49 L (140-440) K/mm3 Comprehensive Metabolic Panel 11/17/17 Range/Units 05:15 Sodium 141 (137-145) mmol/L Potassium 3.4 L (3.6-5.0) mmol/L Chloride 99.7 (98-107) mmol/L Carbon Dioxide 23 (22-30) mmol/L BUN 70 H (7-17) mg/dL Creatinine 4.6 H (0.7-1.2) mg/dL Glucose 107 H (65-100) mg/dL Calcium 7.5 L (8.4-10.2) mg/dL AST 2722 H (5-40) units/L ALT 504 H (7-56) units/L Alkaline Phosphatase 278 H (35-129) units/L Total Protein 3.8 L (6.3-8.2) g/dL Albumin 2.3 L (3.9-5) g/dL - Imaging and Cardiology EKG: report reviewed, image reviewed Echo: report reviewed (11/11/2017 normal lv function, no signficant regurgitations) - EKG Sinus rhythms and dysrhythmias: sinus tachycardia - Allied health notes Allied health notes reviewed: RT
[2017-11-17] MEDS: PEPCID PO SCH (09:26)
[2017-11-17] MEDS: SODIUM CHLORIDE FLUSH SYRINGE 10 ML IV SCH (09:27)
--- NOTE | 2017-11-17 14:44 | Progress Note ---
Assessment and Plan 37 year old female prewsented in DKA, had multiple cardiac arrests and remains unresponsive on the ventilator. CT brain reveals diffuse edema and loss of santoyo -white matter distinction, compatible with anoxic brain injury. Prognosis is extremely poor. Plan - Check EEG results. Subjective Date of service: 11/17/17 Principal diagnosis: s/p cardiac arrest Interval history: This is a 37 yo woman with history of DM type 2, HTN, Hypothyroidism, presented to the ED via EMS after she was found by her mother at home on the floor and extremely lethargic. She was brought to the ED for evaluation and was subsequently diagnosed with DKA, bilateral PNA, septic shock, ARF and hyperkalemia. Upon transfer from ED to CCU, she became unresponsive and developed cardiopulmonary arrest. She was intubated and remains intubated. She subsequently had 3 more cardiac arrests on the same day. The patient remains on the ventilator, unresponsive. She is on no sedation. Objective - Exam Narrative Exam: Blood pressure remains at a MAP of 100. On no pressors. Dialysis has been started. The patient has noresponse to chest rub or deep pain stimuli. Eyes remain midline. Pupils are fixed and dialated. No corneal response. - Vital Sign Vital Signs - 12hr 11/17/17 11/17/17 11/17/17 02:45 03:00 03:16 Temperature Pulse Rate 68 68 65 Pulse Rate [ From Monitor] Respiratory 28 H 28 H 28 H Rate Blood Pressure 125/88 125/88 119/82 O2 Sat by Pulse 92 97 93 Oximetry O2 Sat by Pulse Oximetry [ Anterior Bilateral Throughout] O2 Sat by Pulse Oximetry [ Bilateral Lower Lobe] 11/17/17 11/17/17 11/17/17 03:30 03:46 03:48 Temperature 98.0 F Pulse Rate 63 62 Pulse Rate [ From Monitor] Respiratory 28 H 28 H Rate Blood Pressure 119/82 115/81 O2 Sat by Pulse 95 95 Oximetry O2 Sat by Pulse Oximetry [ Anterior Bilateral Throughout] O2 Sat by Pulse Oximetry [ Bilateral Lower Lobe] 11/17/17 11/17/17 11/17/17 04:00 04:01 04:13 Temperature Pulse Rate 63 62 Pulse Rate [ From Monitor] Respiratory 28 H Rate Blood Pressure 117/80 117/80 O2 Sat by Pulse 97 92 94 Oximetry O2 Sat by Pulse Oximetry [ Anterior Bilateral Throughout] O2 Sat by Pulse Oximetry [ Bilateral Lower Lobe] 11/17/17 11/17/17 11/17/17 04:15 04:31 04:45 Temperature Pulse Rate 62 62 61 Pulse Rate [ From Monitor] Respiratory 26 H 26 H 26 H Rate Blood Pressure 117/80 115/80 115/80 O2 Sat by Pulse 92 Oximetry O2 Sat by Pulse Oximetry [ Anterior Bilateral Throughout] O2 Sat by Pulse Oximetry [ Bilateral Lower Lobe] 11/17/17 11/17/17 11/17/17 05:01 05:15 05:30 Temperature Pulse Rate 62 60 62 Pulse Rate [ From Monitor] Respiratory 26 H 26 H 26 H Rate Blood Pressure 113/80 114/79 112/78 O2 Sat by Pulse 92 93 Oximetry O2 Sat by Pulse Oximetry [ Anterior Bilateral Throughout] O2 Sat by Pulse Oximetry [ Bilateral Lower Lobe] 11/17/17 11/17/17 11/17/17 05:45 06:00 06:15 Temperature Pulse Rate 61 60 60 Pulse Rate [ From Monitor] Respiratory 26 H 26 H 26 H Rate Blood Pressure 109/77 114/79 108/76 O2 Sat by Pulse 92 Oximetry O2 Sat by Pulse Oximetry [ Anterior Bilateral Throughout] O2 Sat by Pulse Oximetry [ Bilateral Lower Lobe] 11/17/17 11/17/17 11/17/17 06:30 06:45 07:01 Temperature Pulse Rate 60 60 60 Pulse Rate [ From Monitor] Respiratory 26 H 26 H 26 H Rate Blood Pressure 108/80 108/75 112/76 O2 Sat by Pulse 93 93 Oximetry O2 Sat by Pulse Oximetry [ Anterior Bilateral Throughout] O2 Sat by Pulse Oximetry [ Bilateral Lower Lobe] 11/17/17 11/17/17 11/17/17 07:15 07:30 07:45 Temperature Pulse Rate 60 61 60 Pulse Rate [ From Monitor] Respiratory 26 H 26 H 26 H Rate Blood Pressure 112/76 110/78 110/78 O2 Sat by Pulse 93 Oximetry O2 Sat by Pulse Oximetry [ Anterior Bilateral Throughout] O2 Sat by Pulse Oximetry [ Bilateral Lower Lobe] 11/17/17 11/17/17 11/17/17 08:00 08:15 08:30 Temperature 99.0 F Pulse Rate 62 61 61 Pulse Rate [ 61 From Monitor] Respiratory 26 H 26 H 26 H Rate Blood Pressure 112/78 112/77 110/79 O2 Sat by Pulse 94 93 Oximetry O2 Sat by Pulse Oximetry [ Anterior Bilateral Throughout] O2 Sat by Pulse Oximetry [ Bilateral Lower Lobe] 11/17/17 11/17/17 11/17/17 08:45 09:00 09:15 Temperature Pulse Rate 61 61 61 Pulse Rate [ From Monitor] Respiratory 26 H 26 H 26 H Rate Blood Pressure 110/80 110/77 111/79 O2 Sat by Pulse 93 92 92 Oximetry O2 Sat by Pulse Oximetry [ Anterior Bilateral Throughout] O2 Sat by Pulse Oximetry [ Bilateral Lower Lobe] 11/17/17 11/17/17 11/17/17 09:30 09:45 10:00 Temperature Pulse Rate 66 64 64 Pulse Rate [ From Monitor] Respiratory 26 H 26 H 26 H Rate Blood Pressure 117/82 115/78 118/83 O2 Sat by Pulse 94 92 92 Oximetry O2 Sat by Pulse Oximetry [ Anterior Bilateral Throughout] O2 Sat by Pulse Oximetry [ Bilateral Lower Lobe] 11/17/17 11/17/17 11/17/17 10:15 10:30 10:45 Temperature 99.0 F Pulse Rate 63 63 62 Pulse Rate [ From Monitor] Respiratory 26 H 26 H 26 H Rate Blood Pressure 117/81 115/82 113/79 O2 Sat by Pulse 93 93 96 Oximetry O2 Sat by Pulse 96 Oximetry [ Anterior Bilateral Throughout] O2 Sat by Pulse 96 Oximetry [ Bilateral Lower Lobe] 11/17/17 11/17/17 11/17/17 11:00 11:15 11:30 Temperature Pulse Rate 63 63 64 Pulse Rate [ From Monitor] Respiratory 26 H 26 H 26 H Rate Blood Pressure 124/89 119/84 111/80 O2 Sat by Pulse 94 95 94 Oximetry O2 Sat by Pulse Oximetry [ Anterior Bilateral Throughout] O2 Sat by Pulse Oximetry [ Bilateral Lower Lobe] 11/17/17 11/17/17 11/17/17 11:45 11:56 12:00 Temperature 97.3 F L Pulse Rate 63 65 Pulse Rate [ 70 From Monitor] Respiratory 26 H 26 H Rate Blood Pressure 107/73 99/64 O2 Sat by Pulse 94 93 Oximetry O2 Sat by Pulse Oximetry [ Anterior Bilateral Throughout] O2 Sat by Pulse Oximetry [ Bilateral Lower Lobe] 11/17/17 11/17/17 11/17/17 12:14 12:15 12:30 Temperature Pulse Rate 66 65 66 Pulse Rate [ From Monitor] Respiratory 26 H 26 H Rate Blood Pressure 99/64 100/66 100/63 O2 Sat by Pulse 94 96 Oximetry O2 Sat by Pulse Oximetry [ Anterior Bilateral Throughout] O2 Sat by Pulse Oximetry [ Bilateral Lower Lobe] 11/17/17 11/17/17 11/17/17 12:45 13:00 13:15 Temperature Pulse Rate 69 69 70 Pulse Rate [ From Monitor] Respiratory 26 H 26 H 26 H Rate Blood Pressure 100/60 105/68 105/47 O2 Sat by Pulse 95 96 95 Oximetry O2 Sat by Pulse Oximetry [ Anterior Bilateral Throughout] O2 Sat by Pulse Oximetry [ Bilateral Lower Lobe] 11/17/17 11/17/17 11/17/17 13:30 13:45 14:00 Temperature Pulse Rate 70 70 73 Pulse Rate [ From Monitor] Respiratory 26 H 26 H 25 H Rate Blood Pressure 96/55 98/61 98/61 O2 Sat by Pulse 95 93 96 Oximetry O2 Sat by Pulse Oximetry [ Anterior Bilateral Throughout] O2 Sat by Pulse Oximetry [ Bilateral Lower Lobe] 11/17/17 14:12 Temperature 97.6 F Pulse Rate 70 Pulse Rate [ From Monitor] Respiratory 26 H Rate Blood Pressure 102/65 O2 Sat by Pulse Oximetry O2 Sat by Pulse 96 Oximetry [ Anterior Bilateral Throughout] O2 Sat by Pulse 96 Oximetry [ Bilateral Lower Lobe] - Laboratory Findings CBC and BMP: 11/17/17 05:15 11/17/17 05:15 Abnormal Lab Findings: Abnormal Labs 11/10/17 11/10/17 11/10/17 19:54 20:18 20:18 WBC 39.8 H RBC 3.59 L Hgb Hct MCV 117 H MCH MCHC 27 L RDW Plt Count 469 H Seg Neuts % (Manual) 93.5 H Lymphocytes % (Manual) 3.0 L Seg Neutrophils # Man 37.2 H Lymphocytes # (Manual) Monocytes # (Manual) 1.0 H Basophils # (Manual) 0.2 H PT 18.8 H INR 1.48 H POC ABG pH POC ABG pCO2 POC ABG pO2 VBG pH Sodium Potassium Chloride Carbon Dioxide BUN Creatinine Glucose POC Glucose 488 H Lactic Acid Calcium Phosphorus Magnesium AST ALT Alkaline Phosphatase Total Creatine Kinase CK-MB (CK-2) Troponin T C-Reactive Protein Total Protein Albumin Triglycerides HDL Cholesterol TSH Urine WBC (Auto) 11/10/17 11/10/17 11/10/17 20:18 20:18 20:18 WBC RBC Hgb Hct MCV MCH MCHC RDW Plt Count Seg Neuts % (Manual) Lymphocytes % (Manual) Seg Neutrophils # Man Lymphocytes # (Manual) Monocytes # (Manual) Basophils # (Manual) PT INR POC ABG pH POC ABG pCO2 POC ABG pO2 VBG pH 6.763 L* Sodium 125 L Potassium 7.5 H* Chloride 82.9 L Carbon Dioxide 2 L* BUN 33 H Creatinine 1.8 H Glucose 976 H* POC Glucose Lactic Acid 3.00 H* Calcium 7.6 L Phosphorus Magnesium AST ALT Alkaline Phosphatase Total Creatine Kinase CK-MB (CK-2) Troponin T C-Reactive Protein Total Protein 6.2 L Albumin 3.5 L Triglycerides HDL Cholesterol TSH Urine WBC (Auto) 11/10/17 11/10/17 11/10/17 20:35 20:35 22:07 WBC RBC Hgb Hct MCV MCH MCHC RDW Plt Count Seg Neuts % (Manual) Lymphocytes % (Manual) Seg Neutrophils # Man Lymphocytes # (Manual) Monocytes # (Manual) Basophils # (Manual) PT INR POC ABG pH POC ABG pCO2 POC ABG pO2 VBG pH Sodium 124 L Potassium 7.6 H* Chloride 82.0 L Carbon Dioxide 3 L* BUN 33 H Creatinine 1.8 H Glucose 977 H* POC Glucose 481 H Lactic Acid Calcium 7.8 L Phosphorus 9.40 H Magnesium 2.70 H AST ALT Alkaline Phosphatase Total Creatine Kinase CK-MB (CK-2) Troponin T C-Reactive Protein Total Protein Albumin Triglycerides HDL Cholesterol TSH Urine WBC (Auto) 11/10/17 11/10/17 11/10/17 23:06 23:06 23:15 WBC RBC Hgb Hct MCV MCH MCHC RDW Plt Count Seg Neuts % (Manual) Lymphocytes % (Manual) Seg Neutrophils # Man Lymphocytes # (Manual) Monocytes # (Manual) Basophils # (Manual) PT INR POC ABG pH POC ABG pCO2 POC ABG pO2 VBG pH Sodium 133 L D Potassium 5.6 H D Chloride 97.1 L Carbon Dioxide 3 L* BUN 32 H Creatinine 1.6 H Glucose 664 H* POC Glucose Lactic Acid 2.30 H* Calcium 6.8 L Phosphorus Magnesium AST ALT Alkaline Phosphatase Total Creatine Kinase CK-MB (CK-2) Troponin T C-Reactive Protein Total Protein Albumin Triglycerides HDL Cholesterol TSH 15.990 H Urine WBC (Auto) 11/10/17 11/10/17 11/11/17 23:29 Unknown 00:01 WBC RBC Hgb Hct MCV MCH MCHC RDW Plt Count Seg Neuts % (Manual) Lymphocytes % (Manual) Seg Neutrophils # Man Lymphocytes # (Manual) Monocytes # (Manual) Basophils # (Manual) PT INR POC ABG pH POC ABG pCO2 POC ABG pO2 VBG pH 6.881 L* Sodium Potassium Chloride Carbon Dioxide BUN Creatinine Glucose POC Glucose 481 H Lactic Acid Calcium Phosphorus Magnesium AST ALT Alkaline Phosphatase Total Creatine Kinase CK-MB (CK-2) Troponin T C-Reactive Protein Total Protein Albumin Triglycerides HDL Cholesterol TSH Urine WBC (Auto) 8.0 H 11/11/17 11/11/17 11/11/17 00:01 00:46 00:46 WBC RBC Hgb Hct MCV MCH MCHC RDW Plt Count Seg Neuts % (Manual) Lymphocytes % (Manual) Seg Neutrophils # Man Lymphocytes # (Manual) Monocytes # (Manual) Basophils # (Manual) PT INR POC ABG pH POC ABG pCO2 POC ABG pO2 VBG pH Sodium 135 L Potassium Chloride Carbon Dioxide 3 L* 5 L* BUN 32 H 32 H Creatinine 1.5 H 1.5 H Glucose 579 H* 560 H* POC Glucose Lactic Acid 2.40 H* Calcium 6.9 L 6.8 L Phosphorus Magnesium AST ALT Alkaline Phosphatase Total Creatine Kinase CK-MB (CK-2) Troponin T C-Reactive Protein Total Protein Albumin Triglycerides HDL Cholesterol TSH Urine WBC (Auto) 11/11/17 11/11/17 11/11/17 00:58 02:19 02:21 WBC RBC Hgb Hct MCV MCH MCHC RDW Plt Count Seg Neuts % (Manual) Lymphocytes % (Manual) Seg Neutrophils # Man Lymphocytes # (Manual) Monocytes # (Manual) Basophils # (Manual) PT INR POC ABG pH POC ABG pCO2 POC ABG pO2 VBG pH Sodium Potassium Chloride Carbon Dioxide BUN Creatinine Glucose POC Glucose > 500 H < 40 L 457 H Lactic Acid Calcium Phosphorus Magnesium AST ALT Alkaline Phosphatase Total Creatine Kinase CK-MB (CK-2) Troponin T C-Reactive Protein Total Protein Albumin Triglycerides HDL Cholesterol TSH Urine WBC (Auto) 11/11/17 11/11/17 11/11/17 03:31 03:45 03:45 WBC RBC Hgb Hct MCV MCH MCHC RDW Plt Count Seg Neuts % (Manual) Lymphocytes % (Manual) Seg Neutrophils # Man Lymphocytes # (Manual) Monocytes # (Manual) Basophils # (Manual) PT INR POC ABG pH POC ABG pCO2 POC ABG pO2 VBG pH Sodium 147 H D Potassium 2.9 L* D Chloride Carbon Dioxide 11 L BUN 31 H Creatinine 1.8 H Glucose 587 H* POC Glucose 436 H Lactic Acid 9.50 H* Calcium 6.4 L Phosphorus Magnesium AST ALT Alkaline Phosphatase Total Creatine Kinase CK-MB (CK-2) Troponin T C-Reactive Protein Total Protein Albumin Triglycerides HDL Cholesterol TSH Urine WBC (Auto) 11/11/17 11/11/17 11/11/17 04:16 04:45 05:50 WBC RBC Hgb Hct MCV MCH MCHC RDW Plt Count Seg Neuts % (Manual) Lymphocytes % (Manual) Seg Neutrophils # Man Lymphocytes # (Manual) Monocytes # (Manual) Basophils # (Manual) PT INR POC ABG pH 7.036 L POC ABG pCO2 POC ABG pO2 66 L VBG pH Sodium Potassium Chloride Carbon Dioxide BUN Creatinine Glucose POC Glucose 495 H > 500 H Lactic Acid Calcium Phosphorus Magnesium AST ALT Alkaline Phosphatase Total Creatine Kinase CK-MB (CK-2) Troponin T C-Reactive Protein Total Protein Albumin Triglycerides HDL Cholesterol TSH Urine WBC (Auto) 11/11/17 11/11/17 11/11/17 06:29 06:29 06:41 WBC RBC Hgb Hct MCV MCH MCHC RDW Plt Count Seg Neuts % (Manual) Lymphocytes % (Manual) Seg Neutrophils # Man Lymphocytes # (Manual) Monocytes # (Manual) Basophils # (Manual) PT INR POC ABG pH POC ABG pCO2 POC ABG pO2 VBG pH Sodium 149 H Potassium 3.0 L Chloride 109.5 H Carbon Dioxide 17 L BUN 31 H Creatinine 1.7 H Glucose 407 H POC Glucose 387 H Lactic Acid 2.60 H* Calcium 6.2 L Phosphorus Magnesium AST ALT Alkaline Phosphatase Total Creatine Kinase CK-MB (CK-2) Troponin T C-Reactive Protein Total Protein Albumin Triglycerides HDL Cholesterol TSH Urine WBC (Auto) 11/11/17 11/11/17 11/11/17 07:05 07:07 07:07 WBC RBC Hgb Hct MCV MCH MCHC RDW Plt Count Seg Neuts % (Manual) Lymphocytes % (Manual) Seg Neutrophils # Man Lymphocytes # (Manual) Monocytes # (Manual) Basophils # (Manual) PT INR POC ABG pH POC ABG pCO2 POC ABG pO2 VBG pH Sodium 151 H Potassium 3.0 L Chloride 107.5 H Carbon Dioxide 11 L BUN 31 H Creatinine 1.8 H Glucose 541 H* POC Glucose 378 H Lactic Acid Calcium 6.5 L Phosphorus Magnesium AST ALT Alkaline Phosphatase Total Creatine Kinase 686 H CK-MB (CK-2) 19.6 H Troponin T C-Reactive Protein Total Protein Albumin Triglycerides HDL Cholesterol TSH Urine WBC (Auto) 11/11/17 11/11/17 11/11/17 08:50 08:52 09:57 WBC RBC Hgb Hct MCV MCH MCHC RDW Plt Count Seg Neuts % (Manual) Lymphocytes % (Manual) Seg Neutrophils # Man Lymphocytes # (Manual) Monocytes # (Manual) Basophils # (Manual) PT INR POC ABG pH 7.175 L POC ABG pCO2 45.1 H POC ABG pO2 33 L VBG pH Sodium Potassium Chloride Carbon Dioxide BUN Creatinine Glucose POC Glucose 256 H 232 H Lactic Acid Calcium Phosphorus Magnesium AST ALT Alkaline Phosphatase Total Creatine Kinase CK-MB (CK-2) Troponin T C-Reactive Protein Total Protein Albumin Triglycerides HDL Cholesterol TSH Urine WBC (Auto) 11/11/17 11/11/17 11/11/17 10:45 10:45 11:08 WBC RBC Hgb Hct MCV MCH 33 H MCHC RDW Plt Count Seg Neuts % (Manual) Lymphocytes % (Manual) Seg Neutrophils # Man Lymphocytes # (Manual) Monocytes # (Manual) Basophils # (Manual) PT INR POC ABG pH 7.157 L POC ABG pCO2 52.2 H POC ABG pO2 31 L VBG pH Sodium Potassium Chloride Carbon Dioxide BUN Creatinine Glucose POC Glucose Lactic Acid Calcium Phosphorus Magnesium AST ALT Alkaline Phosphatase Total Creatine Kinase 1041 H CK-MB (CK-2) 31.9 H Troponin T 0.041 H D C-Reactive Protein Total Protein Albumin Triglycerides 510 H HDL Cholesterol 26 L TSH Urine WBC (Auto) 11/11/17 11/11/17 11/11/17 11:12 12:33 12:38 WBC RBC Hgb Hct MCV MCH MCHC RDW Plt Count Seg Neuts % (Manual) Lymphocytes % (Manual) Seg Neutrophils # Man Lymphocytes # (Manual) Monocytes # (Manual) Basophils # (Manual) PT INR POC ABG pH 7.258 L POC ABG pCO2 94.5 H POC ABG pO2 50 L VBG pH Sodium Potassium Chloride Carbon Dioxide BUN Creatinine Glucose POC Glucose 246 H 265 H Lactic Acid Calcium Phosphorus Magnesium AST ALT Alkaline Phosphatase Total Creatine Kinase CK-MB (CK-2) Troponin T C-Reactive Protein Total Protein Albumin Triglycerides HDL Cholesterol TSH Urine WBC (Auto) 11/11/17 11/11/17 11/11/17 12:40 12:40 12:40 WBC RBC Hgb Hct MCV MCH MCHC RDW Plt Count Seg Neuts % (Manual) Lymphocytes % (Manual) Seg Neutrophils # Man Lymphocytes # (Manual) Monocytes # (Manual) Basophils # (Manual) PT INR POC ABG pH POC ABG pCO2 POC ABG pO2 VBG pH Sodium 171 H* D Potassium 2.9 L* Chloride 118.2 H Carbon Dioxide 39 H D BUN 28 H Creatinine 1.8 H Glucose 301 H POC Glucose Lactic Acid 11.70 H* Calcium 11.4 H D Phosphorus Magnesium AST ALT Alkaline Phosphatase Total Creatine Kinase CK-MB (CK-2) Troponin T C-Reactive Protein 7.40 H Total Protein Albumin Triglycerides HDL Cholesterol TSH Urine WBC (Auto) 11/11/17 11/11/17 11/11/17 13:58 14:53 15:42 WBC RBC Hgb Hct MCV MCH MCHC RDW Plt Count Seg Neuts % (Manual) Lymphocytes % (Manual) Seg Neutrophils # Man Lymphocytes # (Manual) Monocytes # (Manual) Basophils # (Manual) PT INR POC ABG pH POC ABG pCO2 POC ABG pO2 VBG pH Sodium Potassium Chloride Carbon Dioxide BUN Creatinine Glucose POC Glucose 244 H 273 H 311 H Lactic Acid Calcium Phosphorus Magnesium AST ALT Alkaline Phosphatase Total Creatine Kinase CK-MB (CK-2) Troponin T C-Reactive Protein Total Protein Albumin Triglycerides HDL Cholesterol TSH Urine WBC (Auto) 11/11/17 11/11/17 11/11/17 16:08 17:09 18:41 WBC RBC Hgb Hct MCV MCH MCHC RDW Plt Count Seg Neuts % (Manual) Lymphocytes % (Manual) Seg Neutrophils # Man Lymphocytes # (Manual) Monocytes # (Manual) Basophils # (Manual) PT INR POC ABG pH POC ABG pCO2 POC ABG pO2 VBG pH Sodium 153 H D Potassium 3.3 L Chloride 112.6 H Carbon Dioxide 14 L D BUN 30 H Creatinine 2.1 H Glucose 301 H POC Glucose 337 H 262 H Lactic Acid Calcium 7.8 L D Phosphorus Magnesium AST ALT Alkaline Phosphatase Total Creatine Kinase CK-MB (CK-2) Troponin T C-Reactive Protein Total Protein Albumin Triglycerides HDL Cholesterol TSH Urine WBC (Auto) 11/11/17 11/11/17 11/11/17 19:49 20:14 20:25 WBC RBC Hgb Hct MCV MCH MCHC RDW Plt Count Seg Neuts % (Manual) Lymphocytes % (Manual) Seg Neutrophils # Man Lymphocytes # (Manual) Monocytes # (Manual) Basophils # (Manual) PT INR POC ABG pH POC ABG pCO2 POC ABG pO2 VBG pH Sodium 154 H Potassium 2.7 L* Chloride 110.8 H Carbon Dioxide 20 L BUN 31 H Creatinine 2.4 H Glucose 261 H POC Glucose 281 H 265 H Lactic Acid Calcium 7.9 L Phosphorus Magnesium AST ALT Alkaline Phosphatase Total Creatine Kinase CK-MB (CK-2) Troponin T C-Reactive Protein Total Protein Albumin Triglycerides HDL Cholesterol TSH Urine WBC (Auto) 11/11/17 11/11/17 11/11/17 20:53 21:55 23:17 WBC RBC Hgb Hct MCV MCH MCHC RDW Plt Count Seg Neuts % (Manual) Lymphocytes % (Manual) Seg Neutrophils # Man Lymphocytes # (Manual) Monocytes # (Manual) Basophils # (Manual) PT INR POC ABG pH POC ABG pCO2 POC ABG pO2 VBG pH Sodium Potassium Chloride Carbon Dioxide BUN Creatinine Glucose POC Glucose 274 H 209 H 180 H Lactic Acid Calcium Phosphorus Magnesium AST ALT Alkaline Phosphatase Total Creatine Kinase CK-MB (CK-2) Troponin T C-Reactive Protein Total Protein Albumin Triglycerides HDL Cholesterol TSH Urine WBC (Auto) 11/12/17 11/12/17 11/12/17 00:09 00:26 01:12 WBC RBC Hgb Hct MCV MCH MCHC RDW Plt Count Seg Neuts % (Manual) Lymphocytes % (Manual) Seg Neutrophils # Man Lymphocytes # (Manual) Monocytes # (Manual) Basophils # (Manual) PT INR POC ABG pH POC ABG pCO2 POC ABG pO2 VBG pH Sodium 154 H Potassium Chloride 113.1 H Carbon Dioxide 17 L BUN 34 H Creatinine 2.5 H Glucose 144 H POC Glucose 176 H 148 H Lactic Acid Calcium 7.7 L Phosphorus Magnesium AST ALT Alkaline Phosphatase Total Creatine Kinase CK-MB (CK-2) Troponin T C-Reactive Protein Total Protein Albumin Triglycerides HDL Cholesterol TSH Urine WBC (Auto) 11/12/17 11/12/17 11/12/17 02:05 03:27 04:22 WBC RBC Hgb Hct MCV MCH MCHC RDW Plt Count Seg Neuts % (Manual) Lymphocytes % (Manual) Seg Neutrophils # Man Lymphocytes # (Manual) Monocytes # (Manual) Basophils # (Manual) PT INR POC ABG pH POC ABG pCO2 POC ABG pO2 VBG pH Sodium Potassium Chloride Carbon Dioxide BUN Creatinine Glucose POC Glucose 148 H 156 H 137 H Lactic Acid Calcium Phosphorus Magnesium AST ALT Alkaline Phosphatase Total Creatine Kinase CK-MB (CK-2) Troponin T C-Reactive Protein Total Protein Albumin Triglycerides HDL Cholesterol TSH Urine WBC (Auto) 11/12/17 11/12/17 11/12/17 04:42 05:06 05:34 WBC RBC Hgb Hct MCV MCH MCHC RDW Plt Count Seg Neuts % (Manual) Lymphocytes % (Manual) Seg Neutrophils # Man Lymphocytes # (Manual) Monocytes # (Manual) Basophils # (Manual) PT INR POC ABG pH POC ABG pCO2 POC ABG pO2 56 L VBG pH Sodium 154 H Potassium 3.2 L D Chloride 109.8 H Carbon Dioxide BUN 32 H Creatinine 2.6 H Glucose 157 H POC Glucose 163 H Lactic Acid Calcium 7.3 L Phosphorus Magnesium AST ALT Alkaline Phosphatase Total Creatine Kinase CK-MB (CK-2) Troponin T C-Reactive Protein Total Protein Albumin Triglycerides HDL Cholesterol TSH Urine WBC (Auto) 11/12/17 11/12/17 11/12/17 05:42 06:23 06:36 WBC RBC Hgb Hct MCV MCH MCHC RDW Plt Count Seg Neuts % (Manual) Lymphocytes % (Manual) Seg Neutrophils # Man Lymphocytes # (Manual) Monocytes # (Manual) Basophils # (Manual) PT INR POC ABG pH POC ABG pCO2 POC ABG pO2 VBG pH Sodium Potassium Chloride Carbon Dioxide BUN Creatinine Glucose POC Glucose 166 H 171 H 181 H Lactic Acid Calcium Phosphorus Magnesium AST ALT Alkaline Phosphatase Total Creatine Kinase CK-MB (CK-2) Troponin T C-Reactive Protein Total Protein Albumin Triglycerides HDL Cholesterol TSH Urine WBC (Auto) 11/12/17 11/12/17 11/12/17 07:07 08:16 09:10 WBC RBC Hgb Hct MCV MCH MCHC RDW Plt Count Seg Neuts % (Manual) Lymphocytes % (Manual) Seg Neutrophils # Man Lymphocytes # (Manual) Monocytes # (Manual) Basophils # (Manual) PT INR POC ABG pH POC ABG pCO2 POC ABG pO2 VBG pH Sodium Potassium Chloride Carbon Dioxide BUN Creatinine Glucose POC Glucose 170 H 171 H 170 H Lactic Acid Calcium Phosphorus Magnesium AST ALT Alkaline Phosphatase Total Creatine Kinase CK-MB (CK-2) Troponin T C-Reactive Protein Total Protein Albumin Triglycerides HDL Cholesterol TSH Urine WBC (Auto) 11/12/17 11/12/17 11/12/17 11:12 12:13 12:13 WBC RBC Hgb Hct MCV MCH MCHC RDW Plt Count Seg Neuts % (Manual) Lymphocytes % (Manual) Seg Neutrophils # Man Lymphocytes # (Manual) Monocytes # (Manual) Basophils # (Manual) PT INR POC ABG pH 7.316 L POC ABG pCO2 57.4 H POC ABG pO2 46 L VBG pH Sodium Potassium Chloride Carbon Dioxide BUN Creatinine Glucose POC Glucose 145 H 123 H Lactic Acid Calcium Phosphorus Magnesium AST ALT Alkaline Phosphatase Total Creatine Kinase CK-MB (CK-2) Troponin T C-Reactive Protein Total Protein Albumin Triglycerides HDL Cholesterol TSH Urine WBC (Auto) 11/12/17 11/12/17 11/12/17 14:52 18:05 18:05 WBC 29.0 H RBC 3.15 L Hgb Hct 29.4 L D MCV MCH MCHC 35 H RDW Plt Count 115 L Seg Neuts % (Manual) 90.0 H Lymphocytes % (Manual) 6.0 L Seg Neutrophils # Man 26.1 H Lymphocytes # (Manual) Monocytes # (Manual) 1.2 H Basophils # (Manual) PT INR POC ABG pH POC ABG pCO2 POC ABG pO2 VBG pH Sodium 148 H Potassium Chloride Carbon Dioxide BUN 34 H Creatinine 2.9 H Glucose 147 H POC Glucose 139 H Lactic Acid Calcium 6.6 L Phosphorus Magnesium AST ALT Alkaline Phosphatase Total Creatine Kinase CK-MB (CK-2) Troponin T C-Reactive Protein Total Protein Albumin Triglycerides HDL Cholesterol TSH Urine WBC (Auto) 11/12/17 11/12/17 11/12/17 18:19 18:23 18:45 WBC RBC Hgb Hct MCV MCH MCHC RDW Plt Count Seg Neuts % (Manual) Lymphocytes % (Manual) Seg Neutrophils # Man Lymphocytes # (Manual) Monocytes # (Manual) Basophils # (Manual) PT INR POC ABG pH 7.248 L 7.253 L POC ABG pCO2 61.4 H 58.2 H POC ABG pO2 24 L 56 L VBG pH Sodium Potassium Chloride Carbon Dioxide BUN Creatinine Glucose POC Glucose 154 H Lactic Acid Calcium Phosphorus Magnesium AST ALT Alkaline Phosphatase Total Creatine Kinase CK-MB (CK-2) Troponin T C-Reactive Protein Total Protein Albumin Triglycerides HDL Cholesterol TSH Urine WBC (Auto) 11/12/17 11/12/17 11/12/17 19:08 20:12 21:14 WBC RBC Hgb Hct MCV MCH MCHC RDW Plt Count Seg Neuts % (Manual) Lymphocytes % (Manual) Seg Neutrophils # Man Lymphocytes # (Manual) Monocytes # (Manual) Basophils # (Manual) PT INR POC ABG pH POC ABG pCO2 POC ABG pO2 VBG pH Sodium Potassium Chloride Carbon Dioxide BUN Creatinine Glucose POC Glucose 154 H 155 H 130 H Lactic Acid Calcium Phosphorus Magnesium AST ALT Alkaline Phosphatase Total Creatine Kinase CK-MB (CK-2) Troponin T C-Reactive Protein Total Protein Albumin Triglycerides HDL Cholesterol TSH Urine WBC (Auto) 11/12/17 11/12/17 11/13/17 21:30 22:08 01:17 WBC RBC Hgb Hct MCV MCH MCHC RDW Plt Count Seg Neuts % (Manual) Lymphocytes % (Manual) Seg Neutrophils # Man Lymphocytes # (Manual) Monocytes # (Manual) Basophils # (Manual) PT INR POC ABG pH 7.220 L POC ABG pCO2 57.4 H POC ABG pO2 50 L VBG pH Sodium 146 H Potassium Chloride Carbon Dioxide BUN 35 H Creatinine 3.2 H Glucose 120 H POC Glucose 108 H Lactic Acid Calcium 6.3 L Phosphorus Magnesium AST ALT Alkaline Phosphatase Total Creatine Kinase CK-MB (CK-2) Troponin T C-Reactive Protein Total Protein Albumin Triglycerides HDL Cholesterol TSH Urine WBC (Auto) 11/13/17 11/13/17 11/13/17 01:30 01:33 03:31 WBC RBC Hgb Hct MCV MCH MCHC RDW Plt Count Seg Neuts % (Manual) Lymphocytes % (Manual) Seg Neutrophils # Man Lymphocytes # (Manual) Monocytes # (Manual) Basophils # (Manual) PT INR POC ABG pH POC ABG pCO2 POC ABG pO2 VBG pH Sodium 146 H Potassium Chloride Carbon Dioxide BUN 36 H Creatinine 3.4 H Glucose 143 H POC Glucose 117 H 123 H Lactic Acid Calcium 6.0 L Phosphorus Magnesium AST ALT Alkaline Phosphatase Total Creatine Kinase CK-MB (CK-2) Troponin T C-Reactive Protein Total Protein Albumin Triglycerides HDL Cholesterol TSH Urine WBC (Auto) 11/13/17 11/13/17 11/13/17 04:25 05:14 06:00 WBC RBC Hgb Hct MCV MCH MCHC RDW Plt Count Seg Neuts % (Manual) Lymphocytes % (Manual) Seg Neutrophils # Man Lymphocytes # (Manual) Monocytes # (Manual) Basophils # (Manual) PT INR POC ABG pH POC ABG pCO2 POC ABG pO2 VBG pH Sodium Potassium Chloride Carbon Dioxide BUN 39 H Creatinine 3.8 H Glucose 182 H POC Glucose 161 H 163 H Lactic Acid Calcium 6.6 L Phosphorus 4.90 H Magnesium 1.20 L AST ALT Alkaline Phosphatase Total Creatine Kinase CK-MB (CK-2) Troponin T C-Reactive Protein Total Protein Albumin Triglycerides HDL Cholesterol TSH Urine WBC (Auto) 11/13/17 11/13/17 11/13/17 06:00 06:07 06:24 WBC 32.3 H RBC 3.40 L Hgb Hct MCV MCH MCHC RDW Plt Count 99 L Seg Neuts % (Manual) Lymphocytes % (Manual) Seg Neutrophils # Man Lymphocytes # (Manual) Monocytes # (Manual) Basophils # (Manual) PT INR POC ABG pH 7.199 L POC ABG pCO2 58.3 H POC ABG pO2 70 L VBG pH Sodium Potassium Chloride Carbon Dioxide BUN Creatinine Glucose POC Glucose 171 H Lactic Acid Calcium Phosphorus Magnesium AST ALT Alkaline Phosphatase Total Creatine Kinase CK-MB (CK-2) Troponin T C-Reactive Protein Total Protein Albumin Triglycerides HDL Cholesterol TSH Urine WBC (Auto) 11/13/17 11/13/17 11/13/17 07:42 08:55 09:25 WBC RBC Hgb Hct MCV MCH MCHC RDW Plt Count Seg Neuts % (Manual) Lymphocytes % (Manual) Seg Neutrophils # Man Lymphocytes # (Manual) Monocytes # (Manual) Basophils # (Manual) PT INR POC ABG pH POC ABG pCO2 POC ABG pO2 VBG pH Sodium Potassium Chloride Carbon Dioxide BUN Creatinine Glucose POC Glucose 132 H 143 H 123 H Lactic Acid Calcium Phosphorus Magnesium AST ALT Alkaline Phosphatase Total Creatine Kinase CK-MB (CK-2) Troponin T C-Reactive Protein Total Protein Albumin Triglycerides HDL Cholesterol TSH Urine WBC (Auto) 11/13/17 11/13/17 11/13/17 10:01 10:30 11:06 WBC RBC Hgb Hct MCV MCH MCHC RDW Plt Count Seg Neuts % (Manual) Lymphocytes % (Manual) Seg Neutrophils # Man Lymphocytes # (Manual) Monocytes # (Manual) Basophils # (Manual) PT INR POC ABG pH POC ABG pCO2 POC ABG pO2 VBG pH Sodium Potassium Chloride Carbon Dioxide BUN 41 H Creatinine 4.0 H Glucose 127 H POC Glucose 122 H 129 H Lactic Acid Calcium 6.6 L Phosphorus Magnesium AST ALT Alkaline Phosphatase Total Creatine Kinase CK-MB (CK-2) Troponin T C-Reactive Protein Total Protein Albumin Triglycerides HDL Cholesterol TSH Urine WBC (Auto) 11/13/17 11/13/17 11/13/17 12:01 12:08 14:59 WBC RBC Hgb Hct MCV MCH MCHC RDW Plt Count Seg Neuts % (Manual) Lymphocytes % (Manual) Seg Neutrophils # Man Lymphocytes # (Manual) Monocytes # (Manual) Basophils # (Manual) PT INR POC ABG pH 7.307 L POC ABG pCO2 52.9 H POC ABG pO2 VBG pH Sodium Potassium Chloride Carbon Dioxide BUN Creatinine Glucose POC Glucose 122 H 112 H Lactic Acid Calcium Phosphorus Magnesium AST ALT Alkaline Phosphatase Total Creatine Kinase CK-MB (CK-2) Troponin T C-Reactive Protein Total Protein Albumin Triglycerides HDL Cholesterol TSH Urine WBC (Auto) 11/13/17 11/13/17 11/13/17 16:15 17:58 19:08 WBC RBC Hgb Hct MCV MCH MCHC RDW Plt Count Seg Neuts % (Manual) Lymphocytes % (Manual) Seg Neutrophils # Man Lymphocytes # (Manual) Monocytes # (Manual) Basophils # (Manual) PT INR POC ABG pH POC ABG pCO2 POC ABG pO2 VBG pH Sodium Potassium 5.1 H D Chloride Carbon Dioxide BUN 44 H Creatinine 4.3 H Glucose 117 H POC Glucose 128 H 110 H Lactic Acid Calcium 7.0 L Phosphorus Magnesium AST ALT Alkaline Phosphatase Total Creatine Kinase CK-MB (CK-2) Troponin T C-Reactive Protein Total Protein Albumin Triglycerides HDL Cholesterol TSH Urine WBC (Auto) 11/13/17 11/13/17 11/13/17 19:59 20:22 21:05 WBC RBC Hgb Hct MCV MCH MCHC RDW Plt Count Seg Neuts % (Manual) Lymphocytes % (Manual) Seg Neutrophils # Man Lymphocytes # (Manual) Monocytes # (Manual) Basophils # (Manual) PT INR POC ABG pH POC ABG pCO2 POC ABG pO2 VBG pH Sodium Potassium Chloride Carbon Dioxide BUN 48 H Creatinine 4.5 H Glucose 181 H POC Glucose 180 H 134 H Lactic Acid Calcium 7.0 L Phosphorus Magnesium AST ALT Alkaline Phosphatase Total Creatine Kinase CK-MB (CK-2) Troponin T C-Reactive Protein Total Protein Albumin Triglycerides HDL Cholesterol TSH Urine WBC (Auto) 11/13/17 11/13/17 11/14/17 22:04 23:08 00:08 WBC RBC Hgb Hct MCV MCH MCHC RDW Plt Count Seg Neuts % (Manual) Lymphocytes % (Manual) Seg Neutrophils # Man Lymphocytes # (Manual) Monocytes # (Manual) Basophils # (Manual) PT INR POC ABG pH POC ABG pCO2 POC ABG pO2 VBG pH Sodium Potassium Chloride Carbon Dioxide BUN Creatinine Glucose POC Glucose 135 H 143 H 121 H Lactic Acid Calcium Phosphorus Magnesium AST ALT Alkaline Phosphatase Total Creatine Kinase CK-MB (CK-2) Troponin T C-Reactive Protein Total Protein Albumin Triglycerides HDL Cholesterol TSH Urine WBC (Auto) 11/14/17 11/14/17 11/14/17 00:37 01:07 01:27 WBC RBC Hgb Hct MCV MCH MCHC RDW Plt Count Seg Neuts % (Manual) Lymphocytes % (Manual) Seg Neutrophils # Man Lymphocytes # (Manual) Monocytes # (Manual) Basophils # (Manual) PT INR POC ABG pH 7.308 L POC ABG pCO2 POC ABG pO2 161 H VBG pH Sodium Potassium 5.2 H Chloride Carbon Dioxide BUN 49 H Creatinine 4.6 H Glucose 123 H POC Glucose 106 H Lactic Acid Calcium 6.5 L Phosphorus Magnesium AST ALT Alkaline Phosphatase Total Creatine Kinase CK-MB (CK-2) Troponin T C-Reactive Protein Total Protein Albumin Triglycerides HDL Cholesterol TSH Urine WBC (Auto) 11/14/17 11/14/17 11/14/17 02:20 03:09 04:00 WBC RBC Hgb Hct MCV MCH MCHC RDW Plt Count Seg Neuts % (Manual) Lymphocytes % (Manual) Seg Neutrophils # Man Lymphocytes # (Manual) Monocytes # (Manual) Basophils # (Manual) PT INR POC ABG pH POC ABG pCO2 POC ABG pO2 VBG pH Sodium Potassium 5.5 H Chloride Carbon Dioxide BUN 51 H Creatinine 4.5 H Glucose 181 H POC Glucose 130 H 126 H Lactic Acid Calcium 6.6 L Phosphorus Magnesium AST ALT Alkaline Phosphatase Total Creatine Kinase CK-MB (CK-2) Troponin T C-Reactive Protein Total Protein Albumin Triglycerides HDL Cholesterol TSH Urine WBC (Auto) 11/14/17 11/14/17 11/14/17 04:00 04:36 06:29 WBC 31.6 H RBC 3.39 L Hgb Hct MCV MCH MCHC RDW 15.3 H Plt Count 87 L Seg Neuts % (Manual) Lymphocytes % (Manual) Seg Neutrophils # Man Lymphocytes # (Manual) Monocytes # (Manual) Basophils # (Manual) PT INR POC ABG pH POC ABG pCO2 POC ABG pO2 VBG pH Sodium Potassium Chloride Carbon Dioxide BUN Creatinine Glucose POC Glucose 135 H 166 H Lactic Acid Calcium Phosphorus Magnesium AST ALT Alkaline Phosphatase Total Creatine Kinase CK-MB (CK-2) Troponin T C-Reactive Protein Total Protein Albumin Triglycerides HDL Cholesterol TSH Urine WBC (Auto) 11/14/17 11/14/17 11/14/17 12:02 12:45 12:45 WBC RBC Hgb Hct MCV MCH MCHC RDW Plt Count Seg Neuts % (Manual) Lymphocytes % (Manual) Seg Neutrophils # Man Lymphocytes # (Manual) Monocytes # (Manual) Basophils # (Manual) PT 20.8 H INR 1.68 H POC ABG pH POC ABG pCO2 POC ABG pO2 VBG pH Sodium Potassium 5.5 H Chloride Carbon Dioxide 19 L BUN 58 H Creatinine 4.8 H Glucose 313 H POC Glucose 222 H Lactic Acid Calcium 6.4 L Phosphorus Magnesium AST ALT Alkaline Phosphatase Total Creatine Kinase CK-MB (CK-2) Troponin T C-Reactive Protein Total Protein Albumin Triglycerides HDL Cholesterol TSH Urine WBC (Auto) 11/14/17 11/14/17 11/14/17 16:34 18:12 23:15 WBC RBC Hgb Hct MCV MCH MCHC RDW Plt Count Seg Neuts % (Manual) Lymphocytes % (Manual) Seg Neutrophils # Man Lymphocytes # (Manual) Monocytes # (Manual) Basophils # (Manual) PT INR POC ABG pH POC ABG pCO2 POC ABG pO2 VBG pH Sodium Potassium Chloride Carbon Dioxide 17 L BUN 63 H Creatinine 5.1 H Glucose 368 H POC Glucose 381 H 434 H Lactic Acid Calcium 6.4 L Phosphorus Magnesium AST ALT Alkaline Phosphatase Total Creatine Kinase CK-MB (CK-2) Troponin T C-Reactive Protein Total Protein Albumin Triglycerides HDL Cholesterol TSH Urine WBC (Auto) 11/14/17 11/15/17 11/15/17 Unknown 00:51 04:23 WBC RBC Hgb Hct MCV MCH MCHC RDW Plt Count Seg Neuts % (Manual) Lymphocytes % (Manual) Seg Neutrophils # Man Lymphocytes # (Manual) Monocytes # (Manual) Basophils # (Manual) PT INR POC ABG pH 7.287 L POC ABG pCO2 POC ABG pO2 141 H VBG pH Sodium Potassium Chloride Carbon Dioxide BUN Creatinine Glucose POC Glucose 415 H Lactic Acid 2.80 H* Calcium Phosphorus Magnesium AST ALT Alkaline Phosphatase Total Creatine Kinase CK-MB (CK-2) Troponin T C-Reactive Protein Total Protein Albumin Triglycerides HDL Cholesterol TSH Urine WBC (Auto) 11/15/17 11/15/17 11/15/17 05:00 05:43 10:00 WBC 12.0 H RBC 2.23 L Hgb 7.2 L D Hct 21.7 L D MCV MCH MCHC RDW Plt Count 64 L Seg Neuts % (Manual) 79.0 H Lymphocytes % (Manual) 4.0 L Seg Neutrophils # Man 9.5 H Lymphocytes # (Manual) 0.5 L Monocytes # (Manual) Basophils # (Manual) PT INR POC ABG pH POC ABG pCO2 POC ABG pO2 VBG pH Sodium Potassium Chloride Carbon Dioxide 18 L BUN 73 H Creatinine 5.3 H Glucose 461 H POC Glucose 416 H Lactic Acid Calcium 6.7 L Phosphorus Magnesium AST ALT Alkaline Phosphatase Total Creatine Kinase CK-MB (CK-2) Troponin T C-Reactive Protein Total Protein Albumin Triglycerides HDL Cholesterol TSH Urine WBC (Auto) 11/15/17 11/15/17 11/15/17 10:00 12:24 18:42 WBC RBC Hgb Hct MCV MCH MCHC RDW Plt Count Seg Neuts % (Manual) Lymphocytes % (Manual) Seg Neutrophils # Man Lymphocytes # (Manual) Monocytes # (Manual) Basophils # (Manual) PT INR POC ABG pH POC ABG pCO2 POC ABG pO2 VBG pH Sodium Potassium Chloride Carbon Dioxide 21 L BUN 76 H Creatinine 5.7 H Glucose 386 H POC Glucose 374 H 343 H Lactic Acid Calcium 6.9 L Phosphorus Magnesium AST ALT Alkaline Phosphatase Total Creatine Kinase CK-MB (CK-2) Troponin T C-Reactive Protein Total Protein Albumin Triglycerides HDL Cholesterol TSH Urine WBC (Auto) 11/16/17 11/16/17 11/16/17 00:00 04:19 04:40 WBC RBC 2.60 L Hgb 8.5 L Hct 24.4 L MCV MCH 33 H MCHC 35 H RDW Plt Count 65 L Seg Neuts % (Manual) 92.0 H Lymphocytes % (Manual) 2.0 L Seg Neutrophils # Man 10.0 H Lymphocytes # (Manual) 0.2 L Monocytes # (Manual) Basophils # (Manual) PT INR POC ABG pH POC ABG pCO2 POC ABG pO2 66 L VBG pH Sodium Potassium Chloride Carbon Dioxide BUN Creatinine Glucose POC Glucose 205 H Lactic Acid Calcium Phosphorus Magnesium AST ALT Alkaline Phosphatase Total Creatine Kinase CK-MB (CK-2) Troponin T C-Reactive Protein Total Protein Albumin Triglycerides HDL Cholesterol TSH Urine WBC (Auto) 11/16/17 11/16/17 11/16/17 04:40 05:14 14:08 WBC RBC Hgb Hct MCV MCH MCHC RDW Plt Count Seg Neuts % (Manual) Lymphocytes % (Manual) Seg Neutrophils # Man Lymphocytes # (Manual) Monocytes # (Manual) Basophils # (Manual) PT INR POC ABG pH POC ABG pCO2 POC ABG pO2 VBG pH Sodium Potassium 3.2 L Chloride Carbon Dioxide BUN 48 H Creatinine 3.7 H Glucose 142 H POC Glucose 139 H 201 H Lactic Acid Calcium 8.0 L D Phosphorus Magnesium AST 2275 H ALT 647 H Alkaline Phosphatase 268 H Total Creatine Kinase 363 H CK-MB (CK-2) Troponin T C-Reactive Protein Total Protein 3.9 L Albumin 2.1 L Triglycerides HDL Cholesterol TSH Urine WBC (Auto) 11/16/17 11/16/17 11/17/17 18:51 23:48 04:16 WBC RBC Hgb Hct MCV MCH MCHC RDW Plt Count Seg Neuts % (Manual) Lymphocytes % (Manual) Seg Neutrophils # Man Lymphocytes # (Manual) Monocytes # (Manual) Basophils # (Manual) PT INR POC ABG pH 7.487 H POC ABG pCO2 POC ABG pO2 158 H VBG pH Sodium Potassium Chloride Carbon Dioxide BUN Creatinine Glucose POC Glucose 130 H 138 H Lactic Acid Calcium Phosphorus Magnesium AST ALT Alkaline Phosphatase Total Creatine Kinase CK-MB (CK-2) Troponin T C-Reactive Protein Total Protein Albumin Triglycerides HDL Cholesterol TSH Urine WBC (Auto) 11/17/17 11/17/17 11/17/17 05:15 05:15 05:15 WBC RBC 2.58 L Hgb 8.3 L Hct 24.4 L MCV MCH MCHC RDW Plt Count 49 L Seg Neuts % (Manual) 83.0 H Lymphocytes % (Manual) 4.0 L Seg Neutrophils # Man Lymphocytes # (Manual) 0.4 L Monocytes # (Manual) Basophils # (Manual) PT 18.6 H INR 1.46 H POC ABG pH POC ABG pCO2 POC ABG pO2 VBG pH Sodium Potassium 3.4 L Chloride Carbon Dioxide BUN 70 H Creatinine 4.6 H Glucose 107 H POC Glucose Lactic Acid Calcium 7.5 L Phosphorus Magnesium AST 2722 H ALT 504 H Alkaline Phosphatase 278 H Total Creatine Kinase CK-MB (CK-2) Troponin T C-Reactive Protein Total Protein 3.8 L Albumin 2.3 L Triglycerides HDL Cholesterol TSH Urine WBC (Auto) 11/17/17 11/17/17 06:07 11:28 WBC RBC Hgb Hct MCV MCH MCHC RDW Plt Count Seg Neuts % (Manual) Lymphocytes % (Manual) Seg Neutrophils # Man Lymphocytes # (Manual) Monocytes # (Manual) Basophils # (Manual) PT INR POC ABG pH POC ABG pCO2 POC ABG pO2 VBG pH Sodium Potassium Chloride Carbon Dioxide BUN Creatinine Glucose POC Glucose 126 H 195 H Lactic Acid Calcium Phosphorus Magnesium AST ALT Alkaline Phosphatase Total Creatine Kinase CK-MB (CK-2) Troponin T C-Reactive Protein Total Protein Albumin Triglycerides HDL Cholesterol TSH Urine WBC (Auto)
[2017-11-17] MEDS: ceFAZolin 2 GM in NACL 0.9% 100 ML IV SCH (15:57)
--- NOTE | 2017-11-17 18:46 | Progress Note ---
Assessment and Plan Assessment and plan: Ms. Melendez is a 37 yo woman with history of DM type 2, HTN, Hypothyroidism, Alcohol abuse, Tobacco dependecncy and Medical noncompliance per chart who presented to the ED via EMS after she was found by a family member at home to be extremely lethargic. She was brought to the ED for evaluation and was subsequently diagnosed with DKA, bilateral PNA, septic shock, ARF and hyperkalemia. Upon transfer from ED to CCU, she became unresponsive and developed cardiopulmonary arrest. ACLS protocol was initiated. At one point, she was noted to be in VF and was shocked twice and given several rounds of epinephrine and was initiated on amio gtt. She was intubated and remains intubated. She subsequently had 3 more cardiac arrest/PEA on the same day. Then she was placed on 4 vasopressors to maintain bp/vitals. s/p cardiorespiratory arrest - She was intubated and ACLS protocol was initiated - s/p cardiac arrest X4, 1st time with [employer],then followed by PEA X3 - likely from Severe DKA and severe septic shock - consulted cardiology, s/p amioderone drip - preserved EF on 2d echo, Acute respiratory failure with severe hypoxia - likely b/l PNA with ARDS due to severe DKA and sepsis - scheduled steroid, nebs, on vent with positive pressure ventilation - added paralytics to improve oxygenation - CC following, Bronchoscopy Severe hypothyroidism - TSH >15 on presentation - started on IV Synthroid DKA - Continue insulin drip, BMP every 4 hours - cont on DKA protocol, start on TF severe Septic shock with bilateral pneumonia - Continue to trend lactic acid, continue vancomycin and Zosyn for now, added clindamycin - Patient currently on levophed - Critical care and ID are following Severe metabolic acidosis - due to DKA, cont insulin drip and BMP every 4 hours Acute renal failure, ATN, poa - Continue IV fluid, nephrology consulted - declining renal function and very low urine output Hypernatremia, - renal is following and managing Bilateral pneumonia, poa - Continue antibiotic, MSSA and Group B strept on trach aspirate culture Hyperkalemia, status post Kayexalate Hypokalemia, will cont to replete Acute metabolic Encephalopathy, poa - cont frequent neuro check - ordered CT head but clinically unstable to do DVT prophylaxis, SCD due to severe thrombocytopenia Full code, prognosis guarded Levophed off NOT sedated, no responding very poor urine output, Hemodialysis started via femoral cath Tube feeding for nutrition Adame present SCD on restraints renewed Consult GI due to worsening Liver function. d/w Dr. Hyatt and he will manage the low potassium Neurology, Dr. Gomez diagnosis with SEVERE anoxic brain injury. EEG pending hemodynamically improved but unfortunately it appears Ms. Melendez suffered seemingly ill-reversible brain damage. Will need LTAC but placement will be difficult without insurance History Interval history: Patient was seen and examined. Follow-up on current diagnosis of respiratory failure, pt still intubated and not sedated per Neurology. Imaging, nursing note , chart, labs and old chart reviewed. Discussed with nursing. Hospitalist Physical - Physical exam Narrative exam: GENERAL: well-developed WF, ill appearing, intubated and not sedated HEENT: NCAT, ett in place, ngt in place NECK: Supple. Trachea midline CHEST/LUNGS: good air entry HEART/CARDIOVASCULAR: tachycardic. S1 and S2 positive. ABDOMEN: Abdomen is soft, nontender. +pbs SKIN: There is no rash. Warm and dry. NEURO: does not Follow command. unresponsive MUSCULOSKELETAL: No joint effusion or tenderness. EXTRIMITY: No edema, no cyanosis or clubbing. PSYCH: unresponsive - Constitutional Vitals: Temp Pulse Resp BP Pulse Ox 97.4 F L 69 26 H 96/53 95 11/17/17 16:00 11/17/17 18:30 11/17/17 18:30 11/17/17 18:30 11/17/17 18:30 General appearance: Present: other (intubated, nonresponsive) Results - Labs CBC & Chem 7: 11/17/17 05:15 11/17/17 05:15 Labs: Laboratory Last Values WBC 8.9 K/mm3 (4.5-11.0) 11/17/17 05:15 RBC 2.58 M/mm3 (3.65-5.03) L 11/17/17 05:15 Hgb 8.3 gm/dl (10.1-14.3) L 11/17/17 05:15 Hct 24.4 % (30.3-42.9) L 11/17/17 05:15 MCV 95 fl (79-97) 11/17/17 05:15 MCH 32 pg (28-32) 11/17/17 05:15 MCHC 34 % (30-34) 11/17/17 05:15 RDW 14.7 % (13.2-15.2) 11/17/17 05:15 Plt Count 49 K/mm3 (140-440) L 11/17/17 05:15 Add Manual Diff Complete 11/17/17 05:15 Total Counted 100 11/17/17 05:15 Seg Neutrophils % Hall Coordinator 11/17/17 05:15 Seg Neuts % (Manual) 83.0 % (40.0-70.0) H 11/17/17 05:15 Band Neutrophils % 9.0 % 11/17/17 05:15 Lymphocytes % (Manual) 4.0 % (13.4-35.0) L 11/17/17 05:15 Reactive Lymphs % (Man) 0 % 11/17/17 05:15 Monocytes % (Manual) 4.0 % (0.0-7.3) 11/17/17 05:15 Eosinophils % (Manual) 0 % (0.0-4.3) 11/17/17 05:15 Basophils % (Manual) 0 % (0.0-1.8) 11/17/17 05:15 Metamyelocytes % 0 % 11/17/17 05:15 Myelocytes % 0 % 11/17/17 05:15 Promyelocytes % 0 % 11/17/17 05:15 Blast Cells % 0 % 11/17/17 05:15 Nucleated RBC % Not Reportable 11/17/17 05:15 Seg Neutrophils # Man 7.4 K/mm3 (1.8-7.7) 11/17/17 05:15 Band Neutrophils # 0.8 K/mm3 11/17/17 05:15 Lymphocytes # (Manual) 0.4 K/mm3 (1.2-5.4) L 11/17/17 05:15 Abs React Lymphs (Man) 0.0 K/mm3 11/17/17 05:15 Monocytes # (Manual) 0.4 K/mm3 (0.0-0.8) 11/17/17 05:15 Eosinophils # (Manual) 0.0 K/mm3 (0.0-0.4) 11/17/17 05:15 Basophils # (Manual) 0.0 K/mm3 (0.0-0.1) 11/17/17 05:15 Metamyelocytes # 0.0 K/mm3 11/17/17 05:15 Myelocytes # 0.0 K/mm3 11/17/17 05:15 Promyelocytes # 0.0 K/mm3 11/17/17 05:15 Blast Cells # 0.0 K/mm3 11/17/17 05:15 WBC Morphology Not Reportable 11/17/17 05:15 Hypersegmented Neuts Not Reportable 11/17/17 05:15 Hyposegmented Neuts Not Reportable 11/17/17 05:15 Hypogranular Neuts Not Reportable 11/17/17 05:15 Smudge Cells Not Reportable 11/17/17 05:15 Toxic Granulation Not Reportable 11/17/17 05:15 Toxic Vacuolation Not Reportable 11/17/17 05:15 Dohle Bodies Not Reportable 11/17/17 05:15 Pelger-Huet Anomaly Not Reportable 11/17/17 05:15 Cassandra Rods Not Reportable 11/17/17 05:15 Platelet Estimate Consistent w auto 11/17/17 05:15 Clumped Platelets Not Reportable 11/17/17 05:15 Plt Clumps, EDTA Not Reportable 11/17/17 05:15 Large Platelets Not Reportable 11/17/17 05:15 Giant Platelets Not Reportable 11/17/17 05:15 Platelet Satelliting Not Reportable 11/17/17 05:15 Plt Morphology Comment Not Reportable 11/17/17 05:15 RBC Morphology Normal 11/17/17 05:15 Dimorphic RBCs Not Reportable 11/17/17 05:15 Polychromasia Not Reportable 11/17/17 05:15 Hypochromasia Not Reportable 11/17/17 05:15 Poikilocytosis Not Reportable 11/17/17 05:15 Anisocytosis Not Reportable 11/17/17 05:15 Microcytosis Not Reportable 11/17/17 05:15 Macrocytosis Not Reportable 11/17/17 05:15 Spherocytes Not Reportable 11/17/17 05:15 Pappenheimer Bodies Not Reportable 11/17/17 05:15 Sickle Cells Not Reportable 11/17/17 05:15 Target Cells Not Reportable 11/17/17 05:15 Tear Drop Cells Not Reportable 11/17/17 05:15 Ovalocytes Not Reportable 11/17/17 05:15 Helmet Cells Not Reportable 11/17/17 05:15 [place] Bodies Not Reportable 11/17/17 05:15 Haslett Rings Not Reportable 11/17/17 05:15 [place] Cells Not Reportable 11/17/17 05:15 Bite Cells Not Reportable 11/17/17 05:15 Crenated Cell Not Reportable 11/17/17 05:15 Elliptocytes Not Reportable 11/17/17 05:15 Acanthocytes (Spur) Not Reportable 11/17/17 05:15 Rouleaux Not Reportable 11/17/17 05:15 Hemoglobin C Crystals Not Reportable 11/17/17 05:15 Schistocytes Not Reportable 11/17/17 05:15 Malaria parasites Not Reportable 11/17/17 05:15 Munir Bodies Not Reportable 11/17/17 05:15 Hem Pathologist Commnt No 11/17/17 05:15 PT 18.6 Sec. (12.2-14.9) H 11/17/17 05:15 INR 1.46 (0.87-1.13) H 11/17/17 05:15 POC ABG pH 7.487 (7.35-7.45) H 11/17/17 04:16 POC ABG pCO2 37.3 (35-45) 11/17/17 04:16 POC ABG pO2 158 (80-105) H 11/17/17 04:16 POC ABG HCO3 28.3 11/17/17 04:16 POC ABG Total CO2 29 11/17/17 04:16 POC ABG O2 Sat 100 11/17/17 04:16 POC ABG Base Excess 5 11/17/17 04:16 VBG pH 6.881 (7.320-7.420) L* 11/11/17 00:01 FiO2 60 % 11/17/17 04:16 Sodium 141 mmol/L (137-145) 11/17/17 05:15 Potassium 3.4 mmol/L (3.6-5.0) L 11/17/17 05:15 Chloride 99.7 mmol/L (98-107) 11/17/17 05:15 Carbon Dioxide 23 mmol/L (22-30) 11/17/17 05:15 Anion Gap 22 mmol/L 11/17/17 05:15 BUN 70 mg/dL (7-17) H 11/17/17 05:15 Creatinine 4.6 mg/dL (0.7-1.2) H 11/17/17 05:15 Estimated GFR 11 ml/min 11/17/17 05:15 BUN/Creatinine Ratio 15 % 11/17/17 05:15 Glucose 107 mg/dL (65-100) H 11/17/17 05:15 POC Glucose 256 (70-105) H 11/17/17 18:08 Lactic Acid 2.80 mmol/L (0.7-2.0) H* 11/14/17 Unknown Calcium 7.5 mg/dL (8.4-10.2) L 11/17/17 05:15 Phosphorus 4.90 mg/dL (2.5-4.5) H 11/13/17 06:00 Magnesium 1.20 mg/dL (1.7-2.3) L 11/13/17 06:00 Total Bilirubin 0.40 mg/dL (0.1-1.2) 11/17/17 05:15 AST 2722 units/L (5-40) H 11/17/17 05:15 ALT 504 units/L (7-56) H 11/17/17 05:15 Alkaline Phosphatase 278 units/L (35-129) H 11/17/17 05:15 Total Creatine Kinase 363 units/L (30-135) H 11/16/17 04:40 CK-MB (CK-2) 31.9 ng/mL (0.0-4.0) H 11/11/17 10:45 CK-MB (CK-2) Rel Index 3.0 (0-4) 11/11/17 10:45 Troponin T 0.041 ng/mL (0.00-0.029) H D 11/11/17 10:45 C-Reactive Protein 7.40 mg/dL (0.00-1.30) H 11/11/17 12:40 Total Protein 3.8 g/dL (6.3-8.2) L 11/17/17 05:15 Albumin 2.3 g/dL (3.9-5) L 11/17/17 05:15 Albumin/Globulin Ratio 1.5 % 11/17/17 05:15 Triglycerides 510 mg/dL (2-149) H 11/11/17 10:45 Cholesterol 170 mg/dL (50-199) 11/11/17 10:45 LDL Cholesterol Direct TNR 11/11/17 10:45 HDL Cholesterol 26 mg/dL (40-59) L 11/11/17 10:45 Cholesterol/HDL Ratio 6.53 % 11/11/17 10:45 TSH 15.990 mlU/mL (0.270-4.200) H 11/10/17 23:15 Urine Color Yellow (Yellow) 11/10/17 Unknown Urine Turbidity Clear (Clear) 11/10/17 Unknown Urine pH 5.0 (5.0-7.0) 11/10/17 Unknown Ur Specific [place] 1.016 (1.003-1.030) 11/10/17 Unknown Urine Protein 30 mg/dl mg/dL (Negative) 11/10/17 Unknown Urine Glucose (UA) >=500 mg/dL (Negative) 11/10/17 Unknown Urine Ketones 80 mg/dL (Negative) 11/10/17 Unknown Urine Blood Mod (Negative) 11/10/17 Unknown Urine Nitrite Neg (Negative) 11/10/17 Unknown Urine Bilirubin Neg (Negative) 11/10/17 Unknown Urine Urobilinogen < 2.0 mg/dL (<2.0) 11/10/17 Unknown Ur Leukocyte Esterase Neg (Negative) 11/10/17 Unknown Urine WBC (Auto) 8.0 /HPF (0.0-6.0) H 11/10/17 Unknown Urine RBC (Auto) 1.0 /HPF (0.0-6.0) 11/10/17 Unknown U Epithel Cells (Auto) < 1.0 /HPF (0-13.0) 11/10/17 Unknown Urine Bacteria (Auto) 1+ /HPF (Negative) 11/10/17 Unknown Urine Mucus Few /HPF 11/10/17 Unknown Random Vancomycin 28.6 ug/mL (0-40.0) 11/14/17 05:25 Urine Opiates Screen Presumptive negative 11/10/17 Unknown Urine Methadone Screen Presumptive negative 11/10/17 Unknown Ur Barbiturates Screen Presumptive negative 11/10/17 Unknown Ur Phencyclidine Scrn Presumptive negative 11/10/17 Unknown Ur Amphetamines Screen Presumptive negative 11/10/17 Unknown U Benzodiazepines Scrn Presumptive negative 11/10/17 Unknown Urine Cocaine Screen Presumptive negative 11/10/17 Unknown U Marijuana (THC) Screen Presumptive negative 11/10/17 Unknown Drugs of Abuse Note Disclamer 11/10/17 Unknown Plasma/Serum Alcohol < 0.01 % (0-0.07) 11/14/17 12:45 Hepatitis A IgM Ab Non-reactive (NonReactive) 11/16/17 05:50 Hep Bs Antigen Non-reactive (Negative) 11/16/17 05:50 Hep B Core IgM Ab Non-reactive (NonReactive) 11/16/17 05:50 Hepatitis C Antibody Non-reactive (NonReactive) 11/16/17 05:50
[2017-11-17] MEDS ORDERED: PROCRIT SUB-Q SCH (19:00)
[2017-11-17] MEDS ORDERED: NACL 0.9 (PRIMING MACHINE ONLY DIALYSIS) MC ONE (22:29)
[2017-11-18] MEDS: CLEOCIN 600 MG/50 mL 600 MG/50 ML BAG IV SCH ×3 (02:50→17:56)
[2017-11-18 06:21] LABS: Albumin 1.9 g/dL (3.9-5); Calcium 7.6 mg/dL (8.4-10.2)
[2017-11-18] MEDS: SYNTHROID IV SCH (06:30)
[2017-11-18] MEDS: HumuLIN R SUB-Q SCH ×5 (06:31→23:30)
--- NOTE | 2017-11-18 08:17 | Progress Note ---
Assessment and Plan Assessment: 1) Severe Sepsis with septic shock/hypolemic shock: still levophed at 2. Still leukocytosis. Fever resolved for 72h. Etiology most likely due to pneumonia +/- right submandibular abscess +/- DKA/N/V. -blood cx neg -TTE neg 2) Bilateral pneumonia - likely aspiration pneumonia -tracheal asp +MSSA/Strep group B -CT showed +kathleen large pleural effusions and kathleen patchy opacities -BAL no growth 3) DKA-better 4) Acute encephalopathy ? anoxic brain injury- CT showed lack of montoya-white differentitation 5) Acute resp failure -CT showed +kathleen large pleural effusions and kathleen patchy opacities 6) Hyponatremia-resolved 7) LOC on HD 8) S/P VT cardiac arrest 9) Right submandibular abscess ? Actinomycosis of the Jaw? 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 Nat Reeves MD Infectious Diseases Specialist [facility], [place] [facility] [phone] Subjective Date of service: 11/18/17 Principal diagnosis: s/p cardiac arrest Interval history: Remains on the vent, no fever. Still on levophed at 2 mcg with MAP 101 Microbiology: Blood cultures: 11/10 neg 11/11 neg Urine cultures: 11/10 neg Respiratory cultures: 11/11 MSSA and Beta hem Strep B Wound cultures: 11/13 Anushka albicans Current Antimicrobials: Clinda 11/12 cefazolin 11/14 fluconazole 11/16 Prior Antimicrobials: Vancomycin Zosyn Penicillin Objective - Exam Narrative Exam: General appearance: comatose on the vent FiO2 50% p12 Eyes: anicteric sclerae, moist conjunctivae; no lid-lag; PERRLA HENT: Atraumatic; oropharynx +ETT +NGT Neck: Trachea midline;+right submandibular wound with minimal induration and no drainage Lungs: CTA, with normal respiratory effort and no intercostal retractions CV:tachy Abdomen: Soft, non-tender Extremities: kathleen legs peripheral edema Skin: Normal temperature, turgor and texture; no rash, ulcers or subcutaneous nodules Psych: comatose. Neuro: comatose Lines: Right Common Femoral Vein Trialysis Vas-Cath - Constitutional Vitals: Vital Signs Temp Pulse Resp BP Pulse Ox 98.9 F 71 26 H 103/60 96 11/18/17 04:00 11/18/17 06:30 11/18/17 06:30 11/18/17 06:30 11/18/17 06:30 Temperature -Last 24 Hours Temperature 98.9 F Temperature 98.9 F Temperature 98.7 F Temperature 97.4 F Temperature 97.6 F Temperature 97.3 F Temperature 99.0 F - Labs CBC & Chem 7: 11/17/17 05:15 11/18/17 05:30 Labs: Abnormal lab results 11/17/17 11/17/17 11/18/17 Range/Units 11:28 18:08 05:30 BUN 63 H (7-17) mg/dL Creatinine 3.6 H (0.7-1.2) mg/dL Glucose 299 H (65-100) mg/dL POC Glucose 195 H 256 H (70-105) Calcium 7.6 L (8.4-10.2) mg/dL AST 1870 H (5-40) units/L ALT 344 H (7-56) units/L Alkaline Phosphatase 264 H (35-129) units/L Total Protein 3.7 L (6.3-8.2) g/dL Albumin 1.9 L (3.9-5) g/dL
--- NOTE | 2017-11-18 08:32 | XRay Report ---
AP CHEST: HISTORY: Followup respiratory failure Lines and tubes remain in good position since yesterday's exam. Mild improvement in pulmonary venous congestion and small pleural effusions is suspected since yesterday's exam. Mild bibasilar opacities remain. The upper lung zones are clear. Heart size is within normal limits. IMPRESSION: Mild improvement in congestive changes and small pleural effusions.
[2017-11-18] MEDS: LANTUS SUB-Q SCH (09:00)
--- NOTE | 2017-11-18 09:11 | Progress Note ---
Assessment and Plan 1. Acute kidney injury: LOC in the setting of volume depletion and DKA. Patient was started on hemodialysis on 11/15/2017 due to worsening renal function associated with anuria and hyperkalemia. Last dialyzed yesterday. 2. Electrolytes: Severe metabolic acidosis, improving. Hypernatremia, improved. 3. Septic shock: On Levophed. 4. DKA. 5. Respiratory failure: On vent. 6. S/p Cardiac arrest. 7. Anemia. 8. Anoxic Encephalopathy. D/w multiple family members at the bedside. Subjective Date of service: 11/18/17 Principal diagnosis: s/p cardiac arrest Interval history: Patient was seen and examined at the bedside. Objective - Vital Signs Vital signs: Vital Signs - 12hr 11/17/17 11/17/17 11/17/17 21:15 21:31 21:45 Temperature Pulse Rate 66 66 66 Respiratory 26 H 26 H 26 H Rate Blood Pressure 87/43 87/43 87/43 O2 Sat by Pulse 97 97 97 Oximetry 11/17/17 11/17/17 11/17/17 22:00 22:15 22:31 Temperature Pulse Rate 65 65 65 Respiratory 26 H 26 H 26 H Rate Blood Pressure 84/42 87/43 87/43 O2 Sat by Pulse 97 97 97 Oximetry 11/17/17 11/17/17 11/17/17 22:45 23:00 23:15 Temperature Pulse Rate 65 65 64 Respiratory 26 H 26 H 26 H Rate Blood Pressure 87/43 85/47 86/44 O2 Sat by Pulse 97 97 96 Oximetry 11/17/17 11/17/17 11/17/17 23:21 23:31 23:45 Temperature Pulse Rate 65 65 67 Respiratory 26 H 26 H 26 H Rate Blood Pressure 86/44 86/44 86/44 O2 Sat by Pulse 96 96 96 Oximetry 11/18/17 11/18/17 11/18/17 00:00 00:16 00:30 Temperature 98.9 F Pulse Rate 65 65 64 Respiratory 26 H 26 H 25 H Rate Blood Pressure 88/46 92/54 92/54 O2 Sat by Pulse 97 96 97 Oximetry 11/18/17 11/18/17 11/18/17 00:35 00:46 01:00 Temperature Pulse Rate 65 65 64 Respiratory 26 H 26 H Rate Blood Pressure 92/54 92/54 92/54 O2 Sat by Pulse 97 97 97 Oximetry 11/18/17/20/18 / 01:16 01:30 01:46 Temperature Pulse Rate 65 65 66 Respiratory 26 H 25 H 26 H Rate Blood Pressure 101/62 101/62 101/62 O2 Sat by Pulse 97 96 97 Oximetry 11/18/17// 02:00 02:16 02:30 Temperature Pulse Rate 65 65 69 Respiratory 25 H 26 H 25 H Rate Blood Pressure 102/62 102/62 102/62 O2 Sat by Pulse 96 96 96 Oximetry 11/18/17//11/18/17 02:46 03:00 03:16 Temperature Pulse Rate 70 68 67 Respiratory 26 H 26 H 26 H Rate Blood Pressure 102/62 107/68 107/68 O2 Sat by Pulse 96 97 97 Oximetry 11/18/17//16 11/ 03:30 03:46 03:47 Temperature Pulse Rate 66 67 66 Respiratory 26 H 26 H Rate Blood Pressure 107/68 107/68 107/68 O2 Sat by Pulse 97 97 96 Oximetry 11/18/17 11/18/17 11/18/17 04:00 04:16 04:30 Temperature 98.9 F Pulse Rate 67 67 67 Respiratory 26 H 26 H 26 H Rate Blood Pressure 107/68 107/68 107/68 O2 Sat by Pulse 96 96 97 Oximetry 11/18/17 11/18/17 11/18/17 04:46 05:00 05:16 Temperature Pulse Rate 67 67 67 Respiratory 26 H 26 H 26 H Rate Blood Pressure 107/68 108/67 108/67 O2 Sat by Pulse 97 96 97 Oximetry 11/18/17 11/18/17 11/18/17 05:30 05:46 06:00 Temperature Pulse Rate 77 75 73 Respiratory 26 H 26 H 26 H Rate Blood Pressure 108/67 108/67 103/60 O2 Sat by Pulse 97 96 96 Oximetry 11/18/17/20/11/18/17 06:16 06:30 06:46 Temperature Pulse Rate 71 71 72 Respiratory 26 H 26 H 26 H Rate Blood Pressure 103/60 103/60 103/60 O2 Sat by Pulse 97 96 96 Oximetry 11/18/1711/18/11/18/17 07:00 07:15 07:30 Temperature Pulse Rate 72 72 72 Respiratory 26 H 26 H 26 H Rate Blood Pressure 125/91 125/91 103/60 O2 Sat by Pulse 97 97 96 Oximetry 11/18/17 11/18/17 11/18/17 07:46 08:00 08:16 Temperature Pulse Rate 72 71 76 Respiratory 26 H 25 H 26 H Rate Blood Pressure 125/91 124/89 124/89 O2 Sat by Pulse 97 98 97 Oximetry 11/18/17 11/18/17 08:30 08:53 Temperature Pulse Rate 75 73 Respiratory 26 H Rate Blood Pressure 124/89 124/89 O2 Sat by Pulse 98 97 Oximetry - General Appearance General appearance: well-developed, appears stated age, intubated, other (on vent, FiO2 55%) EENT: ATNC Neck: supple Respiratory: Present: Clear to Ascultation Cardiology: regular, S1S2, no murmurs Gastrointestinal: normoactive bowel sounds, no tenderness Integumentary: no rash Neurologic: obtunded Musculoskeletal: other (trace pedal edema, right groin hemodialysis catheter) - Lab 11/17/17 05:15 11/18/17 05:30 Most recent lab results Calcium 7.6 mg/dL (8.4-10.2) L 11/18/17 05:30 Phosphorus 4.90 mg/dL (2.5-4.5) H 11/13/17 06:00 Magnesium 1.20 mg/dL (1.7-2.3) L 11/13/17 06:00
--- NOTE | 2017-11-18 10:02 | Progress Note ---
Assessment and Plan Acute hypoxemic respiratory failure.. s/p cardiorespiratory arrest Subcutaneous emphysema( resolved) DKA Severe Sepsis with septic shock Severe metabolic acidosis Acute renal failure requiring HD ARDS Hypernatremia Encephalopathy, metabolic/Anoxic -VAP bundle addressed Neurology notes reviewed. Discussed with the hospitalist service, who will be updating family and addressing goals of care. Unfortunately inspite of respiratory hemodynamic improvement, she appears to have suffered severe neurological damage. Continue all supportive care until discussions with the family re goals of care. Full code Prognosis is grave Discussed with her mother extensively Subjective Date of service: 11/18/17 Principal diagnosis: s/p cardiac arrest Interval history: 37 y/o female with history of uncontrolled DM, non compliance with diabetes meds , previous admissions due to DKA, gastroparesis; brought to the hospital on 11/10 severely lethargic by her common law at home. Per her , she celebrated her birthday 2 days before admission, she had some drinks with friends. The following day she developed severe nausea, vomiting and abdominal pain. She did not have any cough, SOB or cold symptoms. She did not eat cake or sweets. EMS was called and she had a glucose above 500. In the ED, temp 92, HR 72, R 16, BP 88/31. WBC 39K. Hg 11.5. Plat 469. Sodium 151. Creat 1.8. Glu 541. CXR RLL infiltrate . Intubated in the ER. S/P PEA cardiac arrest Patient is seen today for: Acute hypoxic respiratory, severe sepsis with septic shock, LOC, Acute encephalopathy, s/p cardiac arrest (PEA) Seen and examined. Vitals, labs, medications, chart and imaging reviewed. Oxygenation improved, weaning off vasopressor support. Discussed with RT and RN 24 hour events reviewed, no acute overnight events reported Objective - Exam Narrative Exam: General appearance: comatose on the vent , no dys-synchrony, no spontaneous breaths Eyes: anicteric sclerae, moist conjunctivae; fixed dilated pupils No gag or cough reflex on suctioning HENT: Atraumatic; oropharynx +ETT +NGT Neck: Trachea midline;+right submandibular wound with minimal induration and no drainage Lungs: CTA, with normal respiratory effort and no intercostal retractions CV:RRR,S1,S2 Abdomen: Soft, non-tender, BS+ Extremities:Bilateral lower extremity edema, no cyanosis, no clubbing Skin: Normal temperature, turgor and texture; no rash, ulcers or subcutaneous nodules Neuro: Unresponsive, no response to deep sternal rub or nail bed pressure Lines: Right Common Femoral Vein Trialysis Vas-Cath Vital Signs - 12hr 11/17/17 11/17/17 11/17/17 22:15 22:31 22:45 Temperature Pulse Rate 65 65 65 Respiratory 26 H 26 H 26 H Rate Blood Pressure 87/43 87/43 87/43 O2 Sat by Pulse 97 97 97 Oximetry 11/17/17 11/17/17 11/17/17 23:00 23:15 23:21 Temperature Pulse Rate 65 64 65 Respiratory 26 H 26 H 26 H Rate Blood Pressure 85/47 86/44 86/44 O2 Sat by Pulse 97 96 96 Oximetry 11/17/17 11/17/17 11/18/17 23:31 23:45 00:00 Temperature 98.9 F Pulse Rate 65 67 65 Respiratory 26 H 26 H 26 H Rate Blood Pressure 86/44 86/44 88/46 O2 Sat by Pulse 96 96 97 Oximetry 11/18/17 11/18/17 11/18/17 00:16 00:30 00:35 Temperature Pulse Rate 65 64 65 Respiratory 26 H 25 H Rate Blood Pressure 92/54 92/54 92/54 O2 Sat by Pulse 96 97 97 Oximetry 11/18/17 11/18/17 11/18/17 00:46 01:00 01:16 Temperature Pulse Rate 65 64 65 Respiratory 26 H 26 H 26 H Rate Blood Pressure 92/54 92/54 101/62 O2 Sat by Pulse 97 97 97 Oximetry 11/18/17 11/18/17 11/18/17 01:30 01:46 02:00 Temperature Pulse Rate 65 66 65 Respiratory 25 H 26 H 25 H Rate Blood Pressure 101/62 101/62 102/62 O2 Sat by Pulse 96 97 96 Oximetry 11/18/17 11/18/17 11/18/17 02:16 02:30 02:46 Temperature Pulse Rate 65 69 70 Respiratory 26 H 25 H 26 H Rate Blood Pressure 102/62 102/62 102/62 O2 Sat by Pulse 96 96 96 Oximetry 11/18/17 11/18/17 11/18/17 03:00 03:16 03:30 Temperature Pulse Rate 68 67 66 Respiratory 26 H 26 H 26 H Rate Blood Pressure 107/68 107/68 107/68 O2 Sat by Pulse 97 97 97 Oximetry 18 20/18 11/18/17 03:46 03:47 04:00 Temperature 98.9 F Pulse Rate 67 66 67 Respiratory 26 H 26 H Rate Blood Pressure 107/68 107/68 107/68 O2 Sat by Pulse 97 96 96 Oximetry 11/18/17/20/18 / 04:16 04:30 04:46 Temperature Pulse Rate 67 67 67 Respiratory 26 H 26 H 26 H Rate Blood Pressure 107/68 107/68 107/68 O2 Sat by Pulse 96 97 97 Oximetry 11/18/1711/18/11/18/17 05:00 05:16 05:30 Temperature Pulse Rate 67 67 77 Respiratory 26 H 26 H 26 H Rate Blood Pressure 108/67 108/67 108/67 O2 Sat by Pulse 96 97 97 Oximetry 11/18/17 11/18/17 11/18/17 05:46 06:00 06:16 Temperature Pulse Rate 75 73 71 Respiratory 26 H 26 H 26 H Rate Blood Pressure 108/67 103/60 103/60 O2 Sat by Pulse 96 96 97 Oximetry 11/18/1711/18/18 11/18/17 06:30 06:46 07:00 Temperature Pulse Rate 71 72 72 Respiratory 26 H 26 H 26 H Rate Blood Pressure 103/60 103/60 125/91 O2 Sat by Pulse 96 96 97 Oximetry 11/18/1711/18/18 11/18/17 07:15 07:30 07:46 Temperature Pulse Rate 72 72 72 Respiratory 26 H 26 H 26 H Rate Blood Pressure 125/91 103/60 125/91 O2 Sat by Pulse 97 96 97 Oximetry 11/18/1711/18/18 11/18/17 08:00 08:16 08:30 Temperature Pulse Rate 71 76 75 Respiratory 25 H 26 H 26 H Rate Blood Pressure 124/89 124/89 124/89 O2 Sat by Pulse 98 97 98 Oximetry 11/18/1718 11/18/17 08:46 08:53 09:00 Temperature Pulse Rate 74 73 73 Respiratory 26 H 26 H Rate Blood Pressure 124/89 124/89 125/81 O2 Sat by Pulse 98 97 98 Oximetry CBC and BMP: 11/17/17 05:15 11/18/17 05:30 ABG, PT/INR, D-dimer: ABG POC ABG pH 7.487 (7.35-7.45) H 11/17/17 04:16 POC ABG pCO2 37.3 (35-45) 11/17/17 04:16 POC ABG pO2 158 (80-105) H 11/17/17 04:16 POC ABG HCO3 28.3 11/17/17 04:16 POC ABG Total CO2 29 11/17/17 04:16 POC ABG O2 Sat 100 11/17/17 04:16 PT/INR, D-dimer PT 18.6 Sec. (12.2-14.9) H 11/17/17 05:15 INR 1.46 (0.87-1.13) H 11/17/17 05:15 Abnormal lab findings: Abnormal Labs 11/10/17 11/10/17 11/10/17 19:54 20:18 20:18 WBC 39.8 H RBC 3.59 L Hgb Hct MCV 117 H MCH MCHC 27 L RDW Plt Count 469 H Seg Neuts % (Manual) 93.5 H Lymphocytes % (Manual) 3.0 L Seg Neutrophils # Man 37.2 H Lymphocytes # (Manual) Monocytes # (Manual) 1.0 H Basophils # (Manual) 0.2 H PT 18.8 H INR 1.48 H POC ABG pH POC ABG pCO2 POC ABG pO2 VBG pH Sodium Potassium Chloride Carbon Dioxide BUN Creatinine Glucose POC Glucose 488 H Lactic Acid Calcium Phosphorus Magnesium AST ALT Alkaline Phosphatase Total Creatine Kinase CK-MB (CK-2) Troponin T C-Reactive Protein Total Protein Albumin Triglycerides HDL Cholesterol TSH Urine WBC (Auto) 11/10/17 11/10/17 11/10/17 20:18 20:18 20:18 WBC RBC Hgb Hct MCV MCH MCHC RDW Plt Count Seg Neuts % (Manual) Lymphocytes % (Manual) Seg Neutrophils # Man Lymphocytes # (Manual) Monocytes # (Manual) Basophils # (Manual) PT INR POC ABG pH POC ABG pCO2 POC ABG pO2 VBG pH 6.763 L* Sodium 125 L Potassium 7.5 H* Chloride 82.9 L Carbon Dioxide 2 L* BUN 33 H Creatinine 1.8 H Glucose 976 H* POC Glucose Lactic Acid 3.00 H* Calcium 7.6 L Phosphorus Magnesium AST ALT Alkaline Phosphatase Total Creatine Kinase CK-MB (CK-2) Troponin T C-Reactive Protein Total Protein 6.2 L Albumin 3.5 L Triglycerides HDL Cholesterol TSH Urine WBC (Auto) 11/10/17 11/10/17 11/10/17 20:35 20:35 22:07 WBC RBC Hgb Hct MCV MCH MCHC RDW Plt Count Seg Neuts % (Manual) Lymphocytes % (Manual) Seg Neutrophils # Man Lymphocytes # (Manual) Monocytes # (Manual) Basophils # (Manual) PT INR POC ABG pH POC ABG pCO2 POC ABG pO2 VBG pH Sodium 124 L Potassium 7.6 H* Chloride 82.0 L Carbon Dioxide 3 L* BUN 33 H Creatinine 1.8 H Glucose 977 H* POC Glucose 481 H Lactic Acid Calcium 7.8 L Phosphorus 9.40 H Magnesium 2.70 H AST ALT Alkaline Phosphatase Total Creatine Kinase CK-MB (CK-2) Troponin T C-Reactive Protein Total Protein Albumin Triglycerides HDL Cholesterol TSH Urine WBC (Auto) 11/10/17 11/10/17 11/10/17 23:06 23:06 23:15 WBC RBC Hgb Hct MCV MCH MCHC RDW Plt Count Seg Neuts % (Manual) Lymphocytes % (Manual) Seg Neutrophils # Man Lymphocytes # (Manual) Monocytes # (Manual) Basophils # (Manual) PT INR POC ABG pH POC ABG pCO2 POC ABG pO2 VBG pH Sodium 133 L D Potassium 5.6 H D Chloride 97.1 L Carbon Dioxide 3 L* BUN 32 H Creatinine 1.6 H Glucose 664 H* POC Glucose Lactic Acid 2.30 H* Calcium 6.8 L Phosphorus Magnesium AST ALT Alkaline Phosphatase Total Creatine Kinase CK-MB (CK-2) Troponin T C-Reactive Protein Total Protein Albumin Triglycerides HDL Cholesterol TSH 15.990 H Urine WBC (Auto) 11/10/17 11/10/17 11/11/17 23:29 Unknown 00:01 WBC RBC Hgb Hct MCV MCH MCHC RDW Plt Count Seg Neuts % (Manual) Lymphocytes % (Manual) Seg Neutrophils # Man Lymphocytes # (Manual) Monocytes # (Manual) Basophils # (Manual) PT INR POC ABG pH POC ABG pCO2 POC ABG pO2 VBG pH 6.881 L* Sodium Potassium Chloride Carbon Dioxide BUN Creatinine Glucose POC Glucose 481 H Lactic Acid Calcium Phosphorus Magnesium AST ALT Alkaline Phosphatase Total Creatine Kinase CK-MB (CK-2) Troponin T C-Reactive Protein Total Protein Albumin Triglycerides HDL Cholesterol TSH Urine WBC (Auto) 8.0 H 11/11/17 11/11/17 11/11/17 00:01 00:46 00:46 WBC RBC Hgb Hct MCV MCH MCHC RDW Plt Count Seg Neuts % (Manual) Lymphocytes % (Manual) Seg Neutrophils # Man Lymphocytes # (Manual) Monocytes # (Manual) Basophils # (Manual) PT INR POC ABG pH POC ABG pCO2 POC ABG pO2 VBG pH Sodium 135 L Potassium Chloride Carbon Dioxide 3 L* 5 L* BUN 32 H 32 H Creatinine 1.5 H 1.5 H Glucose 579 H* 560 H* POC Glucose Lactic Acid 2.40 H* Calcium 6.9 L 6.8 L Phosphorus Magnesium AST ALT Alkaline Phosphatase Total Creatine Kinase CK-MB (CK-2) Troponin T C-Reactive Protein Total Protein Albumin Triglycerides HDL Cholesterol TSH Urine WBC (Auto) 11/11/17 11/11/17 11/11/17 00:58 02:19 02:21 WBC RBC Hgb Hct MCV MCH MCHC RDW Plt Count Seg Neuts % (Manual) Lymphocytes % (Manual) Seg Neutrophils # Man Lymphocytes # (Manual) Monocytes # (Manual) Basophils # (Manual) PT INR POC ABG pH POC ABG pCO2 POC ABG pO2 VBG pH Sodium Potassium Chloride Carbon Dioxide BUN Creatinine Glucose POC Glucose > 500 H < 40 L 457 H Lactic Acid Calcium Phosphorus Magnesium AST ALT Alkaline Phosphatase Total Creatine Kinase CK-MB (CK-2) Troponin T C-Reactive Protein Total Protein Albumin Triglycerides HDL Cholesterol TSH Urine WBC (Auto) 11/11/17 11/11/17 11/11/17 03:31 03:45 03:45 WBC RBC Hgb Hct MCV MCH MCHC RDW Plt Count Seg Neuts % (Manual) Lymphocytes % (Manual) Seg Neutrophils # Man Lymphocytes # (Manual) Monocytes # (Manual) Basophils # (Manual) PT INR POC ABG pH POC ABG pCO2 POC ABG pO2 VBG pH Sodium 147 H D Potassium 2.9 L* D Chloride Carbon Dioxide 11 L BUN 31 H Creatinine 1.8 H Glucose 587 H* POC Glucose 436 H Lactic Acid 9.50 H* Calcium 6.4 L Phosphorus Magnesium AST ALT Alkaline Phosphatase Total Creatine Kinase CK-MB (CK-2) Troponin T C-Reactive Protein Total Protein Albumin Triglycerides HDL Cholesterol TSH Urine WBC (Auto) 11/11/17 11/11/17 11/11/17 04:16 04:45 05:50 WBC RBC Hgb Hct MCV MCH MCHC RDW Plt Count Seg Neuts % (Manual) Lymphocytes % (Manual) Seg Neutrophils # Man Lymphocytes # (Manual) Monocytes # (Manual) Basophils # (Manual) PT INR POC ABG pH 7.036 L POC ABG pCO2 POC ABG pO2 66 L VBG pH Sodium Potassium Chloride Carbon Dioxide BUN Creatinine Glucose POC Glucose 495 H > 500 H Lactic Acid Calcium Phosphorus Magnesium AST ALT Alkaline Phosphatase Total Creatine Kinase CK-MB (CK-2) Troponin T C-Reactive Protein Total Protein Albumin Triglycerides HDL Cholesterol TSH Urine WBC (Auto) 11/11/17 11/11/17 11/11/17 06:29 06:29 06:41 WBC RBC Hgb Hct MCV MCH MCHC RDW Plt Count Seg Neuts % (Manual) Lymphocytes % (Manual) Seg Neutrophils # Man Lymphocytes # (Manual) Monocytes # (Manual) Basophils # (Manual) PT INR POC ABG pH POC ABG pCO2 POC ABG pO2 VBG pH Sodium 149 H Potassium 3.0 L Chloride 109.5 H Carbon Dioxide 17 L BUN 31 H Creatinine 1.7 H Glucose 407 H POC Glucose 387 H Lactic Acid 2.60 H* Calcium 6.2 L Phosphorus Magnesium AST ALT Alkaline Phosphatase Total Creatine Kinase CK-MB (CK-2) Troponin T C-Reactive Protein Total Protein Albumin Triglycerides HDL Cholesterol TSH Urine WBC (Auto) 11/11/17 11/11/17 11/11/17 07:05 07:07 07:07 WBC RBC Hgb Hct MCV MCH MCHC RDW Plt Count Seg Neuts % (Manual) Lymphocytes % (Manual) Seg Neutrophils # Man Lymphocytes # (Manual) Monocytes # (Manual) Basophils # (Manual) PT INR POC ABG pH POC ABG pCO2 POC ABG pO2 VBG pH Sodium 151 H Potassium 3.0 L Chloride 107.5 H Carbon Dioxide 11 L BUN 31 H Creatinine 1.8 H Glucose 541 H* POC Glucose 378 H Lactic Acid Calcium 6.5 L Phosphorus Magnesium AST ALT Alkaline Phosphatase Total Creatine Kinase 686 H CK-MB (CK-2) 19.6 H Troponin T C-Reactive Protein Total Protein Albumin Triglycerides HDL Cholesterol TSH Urine WBC (Auto) 11/11/17 11/11/17 11/11/17 08:50 08:52 09:57 WBC RBC Hgb Hct MCV MCH MCHC RDW Plt Count Seg Neuts % (Manual) Lymphocytes % (Manual) Seg Neutrophils # Man Lymphocytes # (Manual) Monocytes # (Manual) Basophils # (Manual) PT INR POC ABG pH 7.175 L POC ABG pCO2 45.1 H POC ABG pO2 33 L VBG pH Sodium Potassium Chloride Carbon Dioxide BUN Creatinine Glucose POC Glucose 256 H 232 H Lactic Acid Calcium Phosphorus Magnesium AST ALT Alkaline Phosphatase Total Creatine Kinase CK-MB (CK-2) Troponin T C-Reactive Protein Total Protein Albumin Triglycerides HDL Cholesterol TSH Urine WBC (Auto) 11/11/17 11/11/17 11/11/17 10:45 10:45 11:08 WBC RBC Hgb Hct MCV MCH 33 H MCHC RDW Plt Count Seg Neuts % (Manual) Lymphocytes % (Manual) Seg Neutrophils # Man Lymphocytes # (Manual) Monocytes # (Manual) Basophils # (Manual) PT INR POC ABG pH 7.157 L POC ABG pCO2 52.2 H POC ABG pO2 31 L VBG pH Sodium Potassium Chloride Carbon Dioxide BUN Creatinine Glucose POC Glucose Lactic Acid Calcium Phosphorus Magnesium AST ALT Alkaline Phosphatase Total Creatine Kinase 1041 H CK-MB (CK-2) 31.9 H Troponin T 0.041 H D C-Reactive Protein Total Protein Albumin Triglycerides 510 H HDL Cholesterol 26 L TSH Urine WBC (Auto) 11/11/17 11/11/17 11/11/17 11:12 12:33 12:38 WBC RBC Hgb Hct MCV MCH MCHC RDW Plt Count Seg Neuts % (Manual) Lymphocytes % (Manual) Seg Neutrophils # Man Lymphocytes # (Manual) Monocytes # (Manual) Basophils # (Manual) PT INR POC ABG pH 7.258 L POC ABG pCO2 94.5 H POC ABG pO2 50 L VBG pH Sodium Potassium Chloride Carbon Dioxide BUN Creatinine Glucose POC Glucose 246 H 265 H Lactic Acid Calcium Phosphorus Magnesium AST ALT Alkaline Phosphatase Total Creatine Kinase CK-MB (CK-2) Troponin T C-Reactive Protein Total Protein Albumin Triglycerides HDL Cholesterol TSH Urine WBC (Auto) 11/11/17 11/11/17 11/11/17 12:40 12:40 12:40 WBC RBC Hgb Hct MCV MCH MCHC RDW Plt Count Seg Neuts % (Manual) Lymphocytes % (Manual) Seg Neutrophils # Man Lymphocytes # (Manual) Monocytes # (Manual) Basophils # (Manual) PT INR POC ABG pH POC ABG pCO2 POC ABG pO2 VBG pH Sodium 171 H* D Potassium 2.9 L* Chloride 118.2 H Carbon Dioxide 39 H D BUN 28 H Creatinine 1.8 H Glucose 301 H POC Glucose Lactic Acid 11.70 H* Calcium 11.4 H D Phosphorus Magnesium AST ALT Alkaline Phosphatase Total Creatine Kinase CK-MB (CK-2) Troponin T C-Reactive Protein 7.40 H Total Protein Albumin Triglycerides HDL Cholesterol TSH Urine WBC (Auto) 11/11/17 11/11/17 11/11/17 13:58 14:53 15:42 WBC RBC Hgb Hct MCV MCH MCHC RDW Plt Count Seg Neuts % (Manual) Lymphocytes % (Manual) Seg Neutrophils # Man Lymphocytes # (Manual) Monocytes # (Manual) Basophils # (Manual) PT INR POC ABG pH POC ABG pCO2 POC ABG pO2 VBG pH Sodium Potassium Chloride Carbon Dioxide BUN Creatinine Glucose POC Glucose 244 H 273 H 311 H Lactic Acid Calcium Phosphorus Magnesium AST ALT Alkaline Phosphatase Total Creatine Kinase CK-MB (CK-2) Troponin T C-Reactive Protein Total Protein Albumin Triglycerides HDL Cholesterol TSH Urine WBC (Auto) 11/11/17 11/11/17 11/11/17 16:08 17:09 18:41 WBC RBC Hgb Hct MCV MCH MCHC RDW Plt Count Seg Neuts % (Manual) Lymphocytes % (Manual) Seg Neutrophils # Man Lymphocytes # (Manual) Monocytes # (Manual) Basophils # (Manual) PT INR POC ABG pH POC ABG pCO2 POC ABG pO2 VBG pH Sodium 153 H D Potassium 3.3 L Chloride 112.6 H Carbon Dioxide 14 L D BUN 30 H Creatinine 2.1 H Glucose 301 H POC Glucose 337 H 262 H Lactic Acid Calcium 7.8 L D Phosphorus Magnesium AST ALT Alkaline Phosphatase Total Creatine Kinase CK-MB (CK-2) Troponin T C-Reactive Protein Total Protein Albumin Triglycerides HDL Cholesterol TSH Urine WBC (Auto) 11/11/17 11/11/17 11/11/17 19:49 20:14 20:25 WBC RBC Hgb Hct MCV MCH MCHC RDW Plt Count Seg Neuts % (Manual) Lymphocytes % (Manual) Seg Neutrophils # Man Lymphocytes # (Manual) Monocytes # (Manual) Basophils # (Manual) PT INR POC ABG pH POC ABG pCO2 POC ABG pO2 VBG pH Sodium 154 H Potassium 2.7 L* Chloride 110.8 H Carbon Dioxide 20 L BUN 31 H Creatinine 2.4 H Glucose 261 H POC Glucose 281 H 265 H Lactic Acid Calcium 7.9 L Phosphorus Magnesium AST ALT Alkaline Phosphatase Total Creatine Kinase CK-MB (CK-2) Troponin T C-Reactive Protein Total Protein Albumin Triglycerides HDL Cholesterol TSH Urine WBC (Auto) 11/11/17 11/11/17 11/11/17 20:53 21:55 23:17 WBC RBC Hgb Hct MCV MCH MCHC RDW Plt Count Seg Neuts % (Manual) Lymphocytes % (Manual) Seg Neutrophils # Man Lymphocytes # (Manual) Monocytes # (Manual) Basophils # (Manual) PT INR POC ABG pH POC ABG pCO2 POC ABG pO2 VBG pH Sodium Potassium Chloride Carbon Dioxide BUN Creatinine Glucose POC Glucose 274 H 209 H 180 H Lactic Acid Calcium Phosphorus Magnesium AST ALT Alkaline Phosphatase Total Creatine Kinase CK-MB (CK-2) Troponin T C-Reactive Protein Total Protein Albumin Triglycerides HDL Cholesterol TSH Urine WBC (Auto) 11/12/17 11/12/17 11/12/17 00:09 00:26 01:12 WBC RBC Hgb Hct MCV MCH MCHC RDW Plt Count Seg Neuts % (Manual) Lymphocytes % (Manual) Seg Neutrophils # Man Lymphocytes # (Manual) Monocytes # (Manual) Basophils # (Manual) PT INR POC ABG pH POC ABG pCO2 POC ABG pO2 VBG pH Sodium 154 H Potassium Chloride 113.1 H Carbon Dioxide 17 L BUN 34 H Creatinine 2.5 H Glucose 144 H POC Glucose 176 H 148 H Lactic Acid Calcium 7.7 L Phosphorus Magnesium AST ALT Alkaline Phosphatase Total Creatine Kinase CK-MB (CK-2) Troponin T C-Reactive Protein Total Protein Albumin Triglycerides HDL Cholesterol TSH Urine WBC (Auto) 11/12/17 11/12/17 11/12/17 02:05 03:27 04:22 WBC RBC Hgb Hct MCV MCH MCHC RDW Plt Count Seg Neuts % (Manual) Lymphocytes % (Manual) Seg Neutrophils # Man Lymphocytes # (Manual) Monocytes # (Manual) Basophils # (Manual) PT INR POC ABG pH POC ABG pCO2 POC ABG pO2 VBG pH Sodium Potassium Chloride Carbon Dioxide BUN Creatinine Glucose POC Glucose 148 H 156 H 137 H Lactic Acid Calcium Phosphorus Magnesium AST ALT Alkaline Phosphatase Total Creatine Kinase CK-MB (CK-2) Troponin T C-Reactive Protein Total Protein Albumin Triglycerides HDL Cholesterol TSH Urine WBC (Auto) 11/12/17 11/12/17 11/12/17 04:42 05:06 05:34 WBC RBC Hgb Hct MCV MCH MCHC RDW Plt Count Seg Neuts % (Manual) Lymphocytes % (Manual) Seg Neutrophils # Man Lymphocytes # (Manual) Monocytes # (Manual) Basophils # (Manual) PT INR POC ABG pH POC ABG pCO2 POC ABG pO2 56 L VBG pH Sodium 154 H Potassium 3.2 L D Chloride 109.8 H Carbon Dioxide BUN 32 H Creatinine 2.6 H Glucose 157 H POC Glucose 163 H Lactic Acid Calcium 7.3 L Phosphorus Magnesium AST ALT Alkaline Phosphatase Total Creatine Kinase CK-MB (CK-2) Troponin T C-Reactive Protein Total Protein Albumin Triglycerides HDL Cholesterol TSH Urine WBC (Auto) 11/12/17 11/12/17 11/12/17 05:42 06:23 06:36 WBC RBC Hgb Hct MCV MCH MCHC RDW Plt Count Seg Neuts % (Manual) Lymphocytes % (Manual) Seg Neutrophils # Man Lymphocytes # (Manual) Monocytes # (Manual) Basophils # (Manual) PT INR POC ABG pH POC ABG pCO2 POC ABG pO2 VBG pH Sodium Potassium Chloride Carbon Dioxide BUN Creatinine Glucose POC Glucose 166 H 171 H 181 H Lactic Acid Calcium Phosphorus Magnesium AST ALT Alkaline Phosphatase Total Creatine Kinase CK-MB (CK-2) Troponin T C-Reactive Protein Total Protein Albumin Triglycerides HDL Cholesterol TSH Urine WBC (Auto) 11/12/17 11/12/17 11/12/17 07:07 08:16 09:10 WBC RBC Hgb Hct MCV MCH MCHC RDW Plt Count Seg Neuts % (Manual) Lymphocytes % (Manual) Seg Neutrophils # Man Lymphocytes # (Manual) Monocytes # (Manual) Basophils # (Manual) PT INR POC ABG pH POC ABG pCO2 POC ABG pO2 VBG pH Sodium Potassium Chloride Carbon Dioxide BUN Creatinine Glucose POC Glucose 170 H 171 H 170 H Lactic Acid Calcium Phosphorus Magnesium AST ALT Alkaline Phosphatase Total Creatine Kinase CK-MB (CK-2) Troponin T C-Reactive Protein Total Protein Albumin Triglycerides HDL Cholesterol TSH Urine WBC (Auto) 11/12/17 11/12/17 11/12/17 11:12 12:13 12:13 WBC RBC Hgb Hct MCV MCH MCHC RDW Plt Count Seg Neuts % (Manual) Lymphocytes % (Manual) Seg Neutrophils # Man Lymphocytes # (Manual) Monocytes # (Manual) Basophils # (Manual) PT INR POC ABG pH 7.316 L POC ABG pCO2 57.4 H POC ABG pO2 46 L VBG pH Sodium Potassium Chloride Carbon Dioxide BUN Creatinine Glucose POC Glucose 145 H 123 H Lactic Acid Calcium Phosphorus Magnesium AST ALT Alkaline Phosphatase Total Creatine Kinase CK-MB (CK-2) Troponin T C-Reactive Protein Total Protein Albumin Triglycerides HDL Cholesterol TSH Urine WBC (Auto) 11/12/17 11/12/17 11/12/17 14:52 18:05 18:05 WBC 29.0 H RBC 3.15 L Hgb Hct 29.4 L D MCV MCH MCHC 35 H RDW Plt Count 115 L Seg Neuts % (Manual) 90.0 H Lymphocytes % (Manual) 6.0 L Seg Neutrophils # Man 26.1 H Lymphocytes # (Manual) Monocytes # (Manual) 1.2 H Basophils # (Manual) PT INR POC ABG pH POC ABG pCO2 POC ABG pO2 VBG pH Sodium 148 H Potassium Chloride Carbon Dioxide BUN 34 H Creatinine 2.9 H Glucose 147 H POC Glucose 139 H Lactic Acid Calcium 6.6 L Phosphorus Magnesium AST ALT Alkaline Phosphatase Total Creatine Kinase CK-MB (CK-2) Troponin T C-Reactive Protein Total Protein Albumin Triglycerides HDL Cholesterol TSH Urine WBC (Auto) 11/12/17 11/12/17 11/12/17 18:19 18:23 18:45 WBC RBC Hgb Hct MCV MCH MCHC RDW Plt Count Seg Neuts % (Manual) Lymphocytes % (Manual) Seg Neutrophils # Man Lymphocytes # (Manual) Monocytes # (Manual) Basophils # (Manual) PT INR POC ABG pH 7.248 L 7.253 L POC ABG pCO2 61.4 H 58.2 H POC ABG pO2 24 L 56 L VBG pH Sodium Potassium Chloride Carbon Dioxide BUN Creatinine Glucose POC Glucose 154 H Lactic Acid Calcium Phosphorus Magnesium AST ALT Alkaline Phosphatase Total Creatine Kinase CK-MB (CK-2) Troponin T C-Reactive Protein Total Protein Albumin Triglycerides HDL Cholesterol TSH Urine WBC (Auto) 11/12/17 11/12/17 11/12/17 19:08 20:12 21:14 WBC RBC Hgb Hct MCV MCH MCHC RDW Plt Count Seg Neuts % (Manual) Lymphocytes % (Manual) Seg Neutrophils # Man Lymphocytes # (Manual) Monocytes # (Manual) Basophils # (Manual) PT INR POC ABG pH POC ABG pCO2 POC ABG pO2 VBG pH Sodium Potassium Chloride Carbon Dioxide BUN Creatinine Glucose POC Glucose 154 H 155 H 130 H Lactic Acid Calcium Phosphorus Magnesium AST ALT Alkaline Phosphatase Total Creatine Kinase CK-MB (CK-2) Troponin T C-Reactive Protein Total Protein Albumin Triglycerides HDL Cholesterol TSH Urine WBC (Auto) 11/12/17 11/12/17 11/13/17 21:30 22:08 01:17 WBC RBC Hgb Hct MCV MCH MCHC RDW Plt Count Seg Neuts % (Manual) Lymphocytes % (Manual) Seg Neutrophils # Man Lymphocytes # (Manual) Monocytes # (Manual) Basophils # (Manual) PT INR POC ABG pH 7.220 L POC ABG pCO2 57.4 H POC ABG pO2 50 L VBG pH Sodium 146 H Potassium Chloride Carbon Dioxide BUN 35 H Creatinine 3.2 H Glucose 120 H POC Glucose 108 H Lactic Acid Calcium 6.3 L Phosphorus Magnesium AST ALT Alkaline Phosphatase Total Creatine Kinase CK-MB (CK-2) Troponin T C-Reactive Protein Total Protein Albumin Triglycerides HDL Cholesterol TSH Urine WBC (Auto) 11/13/17 11/13/17 11/13/17 01:30 01:33 03:31 WBC RBC Hgb Hct MCV MCH MCHC RDW Plt Count Seg Neuts % (Manual) Lymphocytes % (Manual) Seg Neutrophils # Man Lymphocytes # (Manual) Monocytes # (Manual) Basophils # (Manual) PT INR POC ABG pH POC ABG pCO2 POC ABG pO2 VBG pH Sodium 146 H Potassium Chloride Carbon Dioxide BUN 36 H Creatinine 3.4 H Glucose 143 H POC Glucose 117 H 123 H Lactic Acid Calcium 6.0 L Phosphorus Magnesium AST ALT Alkaline Phosphatase Total Creatine Kinase CK-MB (CK-2) Troponin T C-Reactive Protein Total Protein Albumin Triglycerides HDL Cholesterol TSH Urine WBC (Auto) 11/13/17 11/13/17 11/13/17 04:25 05:14 06:00 WBC RBC Hgb Hct MCV MCH MCHC RDW Plt Count Seg Neuts % (Manual) Lymphocytes % (Manual) Seg Neutrophils # Man Lymphocytes # (Manual) Monocytes # (Manual) Basophils # (Manual) PT INR POC ABG pH POC ABG pCO2 POC ABG pO2 VBG pH Sodium Potassium Chloride Carbon Dioxide BUN 39 H Creatinine 3.8 H Glucose 182 H POC Glucose 161 H 163 H Lactic Acid Calcium 6.6 L Phosphorus 4.90 H Magnesium 1.20 L AST ALT Alkaline Phosphatase Total Creatine Kinase CK-MB (CK-2) Troponin T C-Reactive Protein Total Protein Albumin Triglycerides HDL Cholesterol TSH Urine WBC (Auto) 11/13/17 11/13/17 11/13/17 06:00 06:07 06:24 WBC 32.3 H RBC 3.40 L Hgb Hct MCV MCH MCHC RDW Plt Count 99 L Seg Neuts % (Manual) Lymphocytes % (Manual) Seg Neutrophils # Man Lymphocytes # (Manual) Monocytes # (Manual) Basophils # (Manual) PT INR POC ABG pH 7.199 L POC ABG pCO2 58.3 H POC ABG pO2 70 L VBG pH Sodium Potassium Chloride Carbon Dioxide BUN Creatinine Glucose POC Glucose 171 H Lactic Acid Calcium Phosphorus Magnesium AST ALT Alkaline Phosphatase Total Creatine Kinase CK-MB (CK-2) Troponin T C-Reactive Protein Total Protein Albumin Triglycerides HDL Cholesterol TSH Urine WBC (Auto) 11/13/17 11/13/17 11/13/17 07:42 08:55 09:25 WBC RBC Hgb Hct MCV MCH MCHC RDW Plt Count Seg Neuts % (Manual) Lymphocytes % (Manual) Seg Neutrophils # Man Lymphocytes # (Manual) Monocytes # (Manual) Basophils # (Manual) PT INR POC ABG pH POC ABG pCO2 POC ABG pO2 VBG pH Sodium Potassium Chloride Carbon Dioxide BUN Creatinine Glucose POC Glucose 132 H 143 H 123 H Lactic Acid Calcium Phosphorus Magnesium AST ALT Alkaline Phosphatase Total Creatine Kinase CK-MB (CK-2) Troponin T C-Reactive Protein Total Protein Albumin Triglycerides HDL Cholesterol TSH Urine WBC (Auto) 11/13/17 11/13/17 11/13/17 10:01 10:30 11:06 WBC RBC Hgb Hct MCV MCH MCHC RDW Plt Count Seg Neuts % (Manual) Lymphocytes % (Manual) Seg Neutrophils # Man Lymphocytes # (Manual) Monocytes # (Manual) Basophils # (Manual) PT INR POC ABG pH POC ABG pCO2 POC ABG pO2 VBG pH Sodium Potassium Chloride Carbon Dioxide BUN 41 H Creatinine 4.0 H Glucose 127 H POC Glucose 122 H 129 H Lactic Acid Calcium 6.6 L Phosphorus Magnesium AST ALT Alkaline Phosphatase Total Creatine Kinase CK-MB (CK-2) Troponin T C-Reactive Protein Total Protein Albumin Triglycerides HDL Cholesterol TSH Urine WBC (Auto) 11/13/17 11/13/17 11/13/17 12:01 12:08 14:59 WBC RBC Hgb Hct MCV MCH MCHC RDW Plt Count Seg Neuts % (Manual) Lymphocytes % (Manual) Seg Neutrophils # Man Lymphocytes # (Manual) Monocytes # (Manual) Basophils # (Manual) PT INR POC ABG pH 7.307 L POC ABG pCO2 52.9 H POC ABG pO2 VBG pH Sodium Potassium Chloride Carbon Dioxide BUN Creatinine Glucose POC Glucose 122 H 112 H Lactic Acid Calcium Phosphorus Magnesium AST ALT Alkaline Phosphatase Total Creatine Kinase CK-MB (CK-2) Troponin T C-Reactive Protein Total Protein Albumin Triglycerides HDL Cholesterol TSH Urine WBC (Auto) 11/13/17 11/13/17 11/13/17 16:15 17:58 19:08 WBC RBC Hgb Hct MCV MCH MCHC RDW Plt Count Seg Neuts % (Manual) Lymphocytes % (Manual) Seg Neutrophils # Man Lymphocytes # (Manual) Monocytes # (Manual) Basophils # (Manual) PT INR POC ABG pH POC ABG pCO2 POC ABG pO2 VBG pH Sodium Potassium 5.1 H D Chloride Carbon Dioxide BUN 44 H Creatinine 4.3 H Glucose 117 H POC Glucose 128 H 110 H Lactic Acid Calcium 7.0 L Phosphorus Magnesium AST ALT Alkaline Phosphatase Total Creatine Kinase CK-MB (CK-2) Troponin T C-Reactive Protein Total Protein Albumin Triglycerides HDL Cholesterol TSH Urine WBC (Auto) 11/13/17 11/13/17 11/13/17 19:59 20:22 21:05 WBC RBC Hgb Hct MCV MCH MCHC RDW Plt Count Seg Neuts % (Manual) Lymphocytes % (Manual) Seg Neutrophils # Man Lymphocytes # (Manual) Monocytes # (Manual) Basophils # (Manual) PT INR POC ABG pH POC ABG pCO2 POC ABG pO2 VBG pH Sodium Potassium Chloride Carbon Dioxide BUN 48 H Creatinine 4.5 H Glucose 181 H POC Glucose 180 H 134 H Lactic Acid Calcium 7.0 L Phosphorus Magnesium AST ALT Alkaline Phosphatase Total Creatine Kinase CK-MB (CK-2) Troponin T C-Reactive Protein Total Protein Albumin Triglycerides HDL Cholesterol TSH Urine WBC (Auto) 11/13/17 11/13/17 11/14/17 22:04 23:08 00:08 WBC RBC Hgb Hct MCV MCH MCHC RDW Plt Count Seg Neuts % (Manual) Lymphocytes % (Manual) Seg Neutrophils # Man Lymphocytes # (Manual) Monocytes # (Manual) Basophils # (Manual) PT INR POC ABG pH POC ABG pCO2 POC ABG pO2 VBG pH Sodium Potassium Chloride Carbon Dioxide BUN Creatinine Glucose POC Glucose 135 H 143 H 121 H Lactic Acid Calcium Phosphorus Magnesium AST ALT Alkaline Phosphatase Total Creatine Kinase CK-MB (CK-2) Troponin T C-Reactive Protein Total Protein Albumin Triglycerides HDL Cholesterol TSH Urine WBC (Auto) 11/14/17 11/14/17 11/14/17 00:37 01:07 01:27 WBC RBC Hgb Hct MCV MCH MCHC RDW Plt Count Seg Neuts % (Manual) Lymphocytes % (Manual) Seg Neutrophils # Man Lymphocytes # (Manual) Monocytes # (Manual) Basophils # (Manual) PT INR POC ABG pH 7.308 L POC ABG pCO2 POC ABG pO2 161 H VBG pH Sodium Potassium 5.2 H Chloride Carbon Dioxide BUN 49 H Creatinine 4.6 H Glucose 123 H POC Glucose 106 H Lactic Acid Calcium 6.5 L Phosphorus Magnesium AST ALT Alkaline Phosphatase Total Creatine Kinase CK-MB (CK-2) Troponin T C-Reactive Protein Total Protein Albumin Triglycerides HDL Cholesterol TSH Urine WBC (Auto) 11/14/17 11/14/17 11/14/17 02:20 03:09 04:00 WBC RBC Hgb Hct MCV MCH MCHC RDW Plt Count Seg Neuts % (Manual) Lymphocytes % (Manual) Seg Neutrophils # Man Lymphocytes # (Manual) Monocytes # (Manual) Basophils # (Manual) PT INR POC ABG pH POC ABG pCO2 POC ABG pO2 VBG pH Sodium Potassium 5.5 H Chloride Carbon Dioxide BUN 51 H Creatinine 4.5 H Glucose 181 H POC Glucose 130 H 126 H Lactic Acid Calcium 6.6 L Phosphorus Magnesium AST ALT Alkaline Phosphatase Total Creatine Kinase CK-MB (CK-2) Troponin T C-Reactive Protein Total Protein Albumin Triglycerides HDL Cholesterol TSH Urine WBC (Auto) 11/14/17 11/14/17 11/14/17 04:00 04:36 06:29 WBC 31.6 H RBC 3.39 L Hgb Hct MCV MCH MCHC RDW 15.3 H Plt Count 87 L Seg Neuts % (Manual) Lymphocytes % (Manual) Seg Neutrophils # Man Lymphocytes # (Manual) Monocytes # (Manual) Basophils # (Manual) PT INR POC ABG pH POC ABG pCO2 POC ABG pO2 VBG pH Sodium Potassium Chloride Carbon Dioxide BUN Creatinine Glucose POC Glucose 135 H 166 H Lactic Acid Calcium Phosphorus Magnesium AST ALT Alkaline Phosphatase Total Creatine Kinase CK-MB (CK-2) Troponin T C-Reactive Protein Total Protein Albumin Triglycerides HDL Cholesterol TSH Urine WBC (Auto) 11/14/17 11/14/17 11/14/17 12:02 12:45 12:45 WBC RBC Hgb Hct MCV MCH MCHC RDW Plt Count Seg Neuts % (Manual) Lymphocytes % (Manual) Seg Neutrophils # Man Lymphocytes # (Manual) Monocytes # (Manual) Basophils # (Manual) PT 20.8 H INR 1.68 H POC ABG pH POC ABG pCO2 POC ABG pO2 VBG pH Sodium Potassium 5.5 H Chloride Carbon Dioxide 19 L BUN 58 H Creatinine 4.8 H Glucose 313 H POC Glucose 222 H Lactic Acid Calcium 6.4 L Phosphorus Magnesium AST ALT Alkaline Phosphatase Total Creatine Kinase CK-MB (CK-2) Troponin T C-Reactive Protein Total Protein Albumin Triglycerides HDL Cholesterol TSH Urine WBC (Auto) 11/14/17 11/14/17 11/14/17 16:34 18:12 23:15 WBC RBC Hgb Hct MCV MCH MCHC RDW Plt Count Seg Neuts % (Manual) Lymphocytes % (Manual) Seg Neutrophils # Man Lymphocytes # (Manual) Monocytes # (Manual) Basophils # (Manual) PT INR POC ABG pH POC ABG pCO2 POC ABG pO2 VBG pH Sodium Potassium Chloride Carbon Dioxide 17 L BUN 63 H Creatinine 5.1 H Glucose 368 H POC Glucose 381 H 434 H Lactic Acid Calcium 6.4 L Phosphorus Magnesium AST ALT Alkaline Phosphatase Total Creatine Kinase CK-MB (CK-2) Troponin T C-Reactive Protein Total Protein Albumin Triglycerides HDL Cholesterol TSH Urine WBC (Auto) 11/14/17 11/15/17 11/15/17 Unknown 00:51 04:23 WBC RBC Hgb Hct MCV MCH MCHC RDW Plt Count Seg Neuts % (Manual) Lymphocytes % (Manual) Seg Neutrophils # Man Lymphocytes # (Manual) Monocytes # (Manual) Basophils # (Manual) PT INR POC ABG pH 7.287 L POC ABG pCO2 POC ABG pO2 141 H VBG pH Sodium Potassium Chloride Carbon Dioxide BUN Creatinine Glucose POC Glucose 415 H Lactic Acid 2.80 H* Calcium Phosphorus Magnesium AST ALT Alkaline Phosphatase Total Creatine Kinase CK-MB (CK-2) Troponin T C-Reactive Protein Total Protein Albumin Triglycerides HDL Cholesterol TSH Urine WBC (Auto) 11/15/17 11/15/17 11/15/17 05:00 05:43 10:00 WBC 12.0 H RBC 2.23 L Hgb 7.2 L D Hct 21.7 L D MCV MCH MCHC RDW Plt Count 64 L Seg Neuts % (Manual) 79.0 H Lymphocytes % (Manual) 4.0 L Seg Neutrophils # Man 9.5 H Lymphocytes # (Manual) 0.5 L Monocytes # (Manual) Basophils # (Manual) PT INR POC ABG pH POC ABG pCO2 POC ABG pO2 VBG pH Sodium Potassium Chloride Carbon Dioxide 18 L BUN 73 H Creatinine 5.3 H Glucose 461 H POC Glucose 416 H Lactic Acid Calcium 6.7 L Phosphorus Magnesium AST ALT Alkaline Phosphatase Total Creatine Kinase CK-MB (CK-2) Troponin T C-Reactive Protein Total Protein Albumin Triglycerides HDL Cholesterol TSH Urine WBC (Auto) 11/15/17 11/15/17 11/15/17 10:00 12:24 18:42 WBC RBC Hgb Hct MCV MCH MCHC RDW Plt Count Seg Neuts % (Manual) Lymphocytes % (Manual) Seg Neutrophils # Man Lymphocytes # (Manual) Monocytes # (Manual) Basophils # (Manual) PT INR POC ABG pH POC ABG pCO2 POC ABG pO2 VBG pH Sodium Potassium Chloride Carbon Dioxide 21 L BUN 76 H Creatinine 5.7 H Glucose 386 H POC Glucose 374 H 343 H Lactic Acid Calcium 6.9 L Phosphorus Magnesium AST ALT Alkaline Phosphatase Total Creatine Kinase CK-MB (CK-2) Troponin T C-Reactive Protein Total Protein Albumin Triglycerides HDL Cholesterol TSH Urine WBC (Auto) 11/16/17 11/16/17 11/16/17 00:00 04:19 04:40 WBC RBC 2.60 L Hgb 8.5 L Hct 24.4 L MCV MCH 33 H MCHC 35 H RDW Plt Count 65 L Seg Neuts % (Manual) 92.0 H Lymphocytes % (Manual) 2.0 L Seg Neutrophils # Man 10.0 H Lymphocytes # (Manual) 0.2 L Monocytes # (Manual) Basophils # (Manual) PT INR POC ABG pH POC ABG pCO2 POC ABG pO2 66 L VBG pH Sodium Potassium Chloride Carbon Dioxide BUN Creatinine Glucose POC Glucose 205 H Lactic Acid Calcium Phosphorus Magnesium AST ALT Alkaline Phosphatase Total Creatine Kinase CK-MB (CK-2) Troponin T C-Reactive Protein Total Protein Albumin Triglycerides HDL Cholesterol TSH Urine WBC (Auto) 11/16/17 11/16/17 11/16/17 04:40 05:14 14:08 WBC RBC Hgb Hct MCV MCH MCHC RDW Plt Count Seg Neuts % (Manual) Lymphocytes % (Manual) Seg Neutrophils # Man Lymphocytes # (Manual) Monocytes # (Manual) Basophils # (Manual) PT INR POC ABG pH POC ABG pCO2 POC ABG pO2 VBG pH Sodium Potassium 3.2 L Chloride Carbon Dioxide BUN 48 H Creatinine 3.7 H Glucose 142 H POC Glucose 139 H 201 H Lactic Acid Calcium 8.0 L D Phosphorus Magnesium AST 2275 H ALT 647 H Alkaline Phosphatase 268 H Total Creatine Kinase 363 H CK-MB (CK-2) Troponin T C-Reactive Protein Total Protein 3.9 L Albumin 2.1 L Triglycerides HDL Cholesterol TSH Urine WBC (Auto) 11/16/17 11/16/17 11/17/17 18:51 23:48 04:16 WBC RBC Hgb Hct MCV MCH MCHC RDW Plt Count Seg Neuts % (Manual) Lymphocytes % (Manual) Seg Neutrophils # Man Lymphocytes # (Manual) Monocytes # (Manual) Basophils # (Manual) PT INR POC ABG pH 7.487 H POC ABG pCO2 POC ABG pO2 158 H VBG pH Sodium Potassium Chloride Carbon Dioxide BUN Creatinine Glucose POC Glucose 130 H 138 H Lactic Acid Calcium Phosphorus Magnesium AST ALT Alkaline Phosphatase Total Creatine Kinase CK-MB (CK-2) Troponin T C-Reactive Protein Total Protein Albumin Triglycerides HDL Cholesterol TSH Urine WBC (Auto) 11/17/17 11/17/17 11/17/17 05:15 05:15 05:15 WBC RBC 2.58 L Hgb 8.3 L Hct 24.4 L MCV MCH MCHC RDW Plt Count 49 L Seg Neuts % (Manual) 83.0 H Lymphocytes % (Manual) 4.0 L Seg Neutrophils # Man Lymphocytes # (Manual) 0.4 L Monocytes # (Manual) Basophils # (Manual) PT 18.6 H INR 1.46 H POC ABG pH POC ABG pCO2 POC ABG pO2 VBG pH Sodium Potassium 3.4 L Chloride Carbon Dioxide BUN 70 H Creatinine 4.6 H Glucose 107 H POC Glucose Lactic Acid Calcium 7.5 L Phosphorus Magnesium AST 2722 H ALT 504 H Alkaline Phosphatase 278 H Total Creatine Kinase CK-MB (CK-2) Troponin T C-Reactive Protein Total Protein 3.8 L Albumin 2.3 L Triglycerides HDL Cholesterol TSH Urine WBC (Auto) 11/17/17 11/17/17 11/17/17 06:07 11:28 18:08 WBC RBC Hgb Hct MCV MCH MCHC RDW Plt Count Seg Neuts % (Manual) Lymphocytes % (Manual) Seg Neutrophils # Man Lymphocytes # (Manual) Monocytes # (Manual) Basophils # (Manual) PT INR POC ABG pH POC ABG pCO2 POC ABG pO2 VBG pH Sodium Potassium Chloride Carbon Dioxide BUN Creatinine Glucose POC Glucose 126 H 195 H 256 H Lactic Acid Calcium Phosphorus Magnesium AST ALT Alkaline Phosphatase Total Creatine Kinase CK-MB (CK-2) Troponin T C-Reactive Protein Total Protein Albumin Triglycerides HDL Cholesterol TSH Urine WBC (Auto) 11/18/17 05:30 WBC RBC Hgb Hct MCV MCH MCHC RDW Plt Count Seg Neuts % (Manual) Lymphocytes % (Manual) Seg Neutrophils # Man Lymphocytes # (Manual) Monocytes # (Manual) Basophils # (Manual) PT INR POC ABG pH POC ABG pCO2 POC ABG pO2 VBG pH Sodium Potassium Chloride Carbon Dioxide BUN 63 H Creatinine 3.6 H Glucose 299 H POC Glucose Lactic Acid Calcium 7.6 L Phosphorus Magnesium AST 1870 H ALT 344 H Alkaline Phosphatase 264 H Total Creatine Kinase CK-MB (CK-2) Troponin T C-Reactive Protein Total Protein 3.7 L Albumin 1.9 L Triglycerides HDL Cholesterol TSH Urine WBC (Auto) Allied health notes reviewed: RT
[2017-11-18] MEDS: ceFAZolin 2 GM in NACL 0.9% 100 ML IV SCH (11:10)
[2017-11-18] MEDS: DIFLUCAN 200 MG/100 ML BAG IV SCH (11:36)
[2017-11-18] MEDS: SODIUM CHLORIDE FLUSH SYRINGE 10 ML IV SCH ×3 (11:37→23:25)
[2017-11-18] MEDS: PEPCID PO SCH (11:41)
--- NOTE | 2017-11-18 11:59 | Gastroenterology Progress Note ---
<SPENCER NEWSOME - Last Filed: 11/18/17 11:57> Assessment and Plan 1.elevated LFTs -LFTs improving (WNL on admission 11/10) -hepatitis panel negative -U/S pending -etiology-most likely 2/2 shock vs medication induced -continue supportive care Subjective Date of service: 11/18/17 Principal diagnosis: elevated LFTs Interval history: No acute events overnight. Objective - Constitutional Vitals: Temp Pulse Resp BP Pulse Ox 98.6 F 73 26 H 125/81 98 11/18/17 10:00 11/18/17 09:00 11/18/17 09:00 11/18/17 09:00 11/18/17 09:00 General appearance: other (nonresponsive on vent) - Respiratory Respiratory: bilateral: CTA (anterior) - Cardiovascular Rhythm: regular Heart Sounds: Present: S1 & S2 - Gastrointestinal General gastrointestinal: Present: soft, non-distended, normal bowel sounds - Labs CBC & Chem 7: 11/17/17 05:15 11/18/17 05:30 Labs: Laboratory Results - last 24 hr 11/17/17 11/18/17 18:08 05:30 Sodium 137 Potassium 4.3 D Chloride 98.8 Carbon Dioxide 24 Anion Gap 19 BUN 63 H Creatinine 3.6 H Estimated GFR 14 BUN/Creatinine Ratio 18 Glucose 299 H POC Glucose 256 H Calcium 7.6 L Total Bilirubin 0.30 AST 1870 H ALT 344 H Alkaline Phosphatase 264 H Total Protein 3.7 L Albumin 1.9 L Albumin/Globulin Ratio 1.1 <DREW DIXON - Last Filed: 11/18/17 16:54> Assessment and Plan pt seen and examined. agree with note above. pt with likely ischemic hepatitis. 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 will sign off, please call as needed or with questions. Objective - Constitutional Vitals: Temp Pulse Resp BP Pulse Ox 98.0 F 66 25 H 108/52 98 11/18/17 16:00 11/18/17 15:35 11/18/17 14:16 11/18/17 15:35 11/18/17 15:35 - Labs CBC & Chem 7: 11/17/17 05:15 11/18/17 05:30 Labs: Laboratory Results - last 24 hr 07/11/18/17 11/18/17 18:08 05:30 11:58 Sodium 137 Potassium 4.3 D Chloride 98.8 Carbon Dioxide 24 Anion Gap 19 BUN 63 H Creatinine 3.6 H Estimated GFR 14 BUN/Creatinine Ratio 18 Glucose 299 H POC Glucose 256 H 377 H Calcium 7.6 L Total Bilirubin 0.30 AST 1870 H ALT 344 H Alkaline Phosphatase 264 H Total Protein 3.7 L Albumin 1.9 L Albumin/Globulin Ratio 1.1
--- NOTE | 2017-11-18 14:25 | Progress Note ---
Assessment and Plan Assessment and plan: Ms. Melendez is a 37 yo woman with history of DM type 2, HTN, Hypothyroidism, Alcohol abuse, Tobacco dependecncy and Medical noncompliance per chart who presented to the ED via EMS after she was found by a family member at home to be extremely lethargic. She was brought to the ED for evaluation and was subsequently diagnosed with DKA, bilateral PNA, septic shock, ARF and hyperkalemia. Upon transfer from ED to CCU, she became unresponsive and developed cardiopulmonary arrest. ACLS protocol was initiated. At one point, she was noted to be in VF and was shocked twice and given several rounds of epinephrine and was initiated on amio gtt. She was intubated and remains intubated. She subsequently had 3 more cardiac arrest/PEA on the same day. Then she was placed on 4 vasopressors to maintain bp/vitals. s/p cardiorespiratory arrest - She was intubated and ACLS protocol was initiated - s/p cardiac arrest X4, 1st time with [facility],then followed by PEA X3 - likely from Severe DKA and severe septic shock - consulted cardiology, s/p amioderone drip - preserved EF on 2d echo, Acute respiratory failure with severe hypoxia - likely b/l PNA with ARDS due to severe DKA and sepsis - scheduled steroid, nebs, on vent with positive pressure ventilation - added paralytics to improve oxygenation - CC following, Bronchoscopy Severe hypothyroidism - TSH >15 on presentation - started on IV Synthroid DKA - Continue insulin drip, BMP every 4 hours - cont on DKA protocol, start on TF severe Septic shock with bilateral pneumonia - Continue to trend lactic acid, continue vancomycin and Zosyn for now, added clindamycin - Patient currently on levophed - Critical care and ID are following Severe metabolic acidosis - due to DKA, cont insulin drip and BMP every 4 hours Acute renal failure, ATN, poa - Continue IV fluid, nephrology consulted - declining renal function and very low urine output Hypernatremia, - renal is following and managing Bilateral pneumonia, poa - Continue antibiotic, MSSA and Group B strept on trach aspirate culture Hyperkalemia, status post Kayexalate Hypokalemia, will cont to replete Acute metabolic Encephalopathy, poa - cont frequent neuro check - ordered CT head but clinically unstable to do DVT prophylaxis, SCD due to severe thrombocytopenia Full code, prognosis guarded Levophed off NOT sedated, not responding very poor urine output, Hemodialysis started via femoral cath Tube feeding for nutrition Adame present SCD on restraints not needed Hemodynamically improved but unfortunately it appears Ms. Melendez suffered seemingly ill-reversible brain damage. Neurology, Dr. Gomez diagnosis with SEVERE anoxic brain injury. EEG reviewed, supsect brain , d/w Dr. Gomez, she will review and d/w Family. Family meeting at bedside with mother, boyfriend and son. Family leaning towards MV withdrawal. History Interval history: Patient was seen and examined. Follow-up on current diagnosis of respiratory failure, pt still intubated and not sedated per Neurology. Imaging, nursing note , chart, labs and old chart reviewed. Discussed with nursing. Hospitalist Physical - Physical exam Narrative exam: GENERAL: well-developed WF, ill appearing, intubated and not sedated HEENT: NCAT, ett in place, ngt in place NECK: Supple. Trachea midline CHEST/LUNGS: good air entry HEART/CARDIOVASCULAR: tachycardic. S1 and S2 positive. ABDOMEN: Abdomen is soft, nontender. +pbs SKIN: There is no rash. Warm and dry. NEURO: does not Follow command. unresponsive MUSCULOSKELETAL: No joint effusion or tenderness. EXTRIMITY: No edema, no cyanosis or clubbing. PSYCH: unresponsive - Constitutional Vitals: Temp Pulse Resp BP Pulse Ox 99.7 F H 71 26 H 119/80 98 11/18/17 12:00 11/18/17 13:37 11/18/17 09:00 11/18/17 13:37 11/18/17 13:37 General appearance: Present: other (intubated, nonresponsive) Results - Labs CBC & Chem 7: 11/17/17 05:15 11/18/17 05:30 Labs: Laboratory Last Values WBC 8.9 K/mm3 (4.5-11.0) 11/17/17 05:15 RBC 2.58 M/mm3 (3.65-5.03) L 11/17/17 05:15 Hgb 8.3 gm/dl (10.1-14.3) L 11/17/17 05:15 Hct 24.4 % (30.3-42.9) L 11/17/17 05:15 MCV 95 fl (79-97) 11/17/17 05:15 MCH 32 pg (28-32) 11/17/17 05:15 MCHC 34 % (30-34) 11/17/17 05:15 RDW 14.7 % (13.2-15.2) 11/17/17 05:15 Plt Count 49 K/mm3 (140-440) L 11/17/17 05:15 Add Manual Diff Complete 11/17/17 05:15 Total Counted 100 11/17/17 05:15 Seg Neutrophils % [employer] 11/17/17 05:15 Seg Neuts % (Manual) 83.0 % (40.0-70.0) H 11/17/17 05:15 Band Neutrophils % 9.0 % 11/17/17 05:15 Lymphocytes % (Manual) 4.0 % (13.4-35.0) L 11/17/17 05:15 Reactive Lymphs % (Man) 0 % 11/17/17 05:15 Monocytes % (Manual) 4.0 % (0.0-7.3) 11/17/17 05:15 Eosinophils % (Manual) 0 % (0.0-4.3) 11/17/17 05:15 Basophils % (Manual) 0 % (0.0-1.8) 11/17/17 05:15 Metamyelocytes % 0 % 11/17/17 05:15 Myelocytes % 0 % 11/17/17 05:15 Promyelocytes % 0 % 11/17/17 05:15 Blast Cells % 0 % 11/17/17 05:15 Nucleated RBC % Not Reportable 11/17/17 05:15 Seg Neutrophils # Man 7.4 K/mm3 (1.8-7.7) 11/17/17 05:15 Band Neutrophils # 0.8 K/mm3 11/17/17 05:15 Lymphocytes # (Manual) 0.4 K/mm3 (1.2-5.4) L 11/17/17 05:15 Abs React Lymphs (Man) 0.0 K/mm3 11/17/17 05:15 Monocytes # (Manual) 0.4 K/mm3 (0.0-0.8) 11/17/17 05:15 Eosinophils # (Manual) 0.0 K/mm3 (0.0-0.4) 11/17/17 05:15 Basophils # (Manual) 0.0 K/mm3 (0.0-0.1) 11/17/17 05:15 Metamyelocytes # 0.0 K/mm3 11/17/17 05:15 Myelocytes # 0.0 K/mm3 11/17/17 05:15 Promyelocytes # 0.0 K/mm3 11/17/17 05:15 Blast Cells # 0.0 K/mm3 11/17/17 05:15 WBC Morphology Not Reportable 11/17/17 05:15 Hypersegmented Neuts Not Reportable 11/17/17 05:15 Hyposegmented Neuts Not Reportable 11/17/17 05:15 Hypogranular Neuts Not Reportable 11/17/17 05:15 Smudge Cells Not Reportable 11/17/17 05:15 Toxic Granulation Not Reportable 11/17/17 05:15 Toxic Vacuolation Not Reportable 11/17/17 05:15 Dohle Bodies Not Reportable 11/17/17 05:15 Pelger-Huet Anomaly Not Reportable 11/17/17 05:15 Cassandra Rods Not Reportable 11/17/17 05:15 Platelet Estimate Consistent w auto 11/17/17 05:15 Clumped Platelets Not Reportable 11/17/17 05:15 Plt Clumps, EDTA Not Reportable 11/17/17 05:15 Large Platelets Not Reportable 11/17/17 05:15 Giant Platelets Not Reportable 11/17/17 05:15 Platelet Satelliting Not Reportable 11/17/17 05:15 Plt Morphology Comment Not Reportable 11/17/17 05:15 RBC Morphology Normal 11/17/17 05:15 Dimorphic RBCs Not Reportable 11/17/17 05:15 Polychromasia Not Reportable 11/17/17 05:15 Hypochromasia Not Reportable 11/17/17 05:15 Poikilocytosis Not Reportable 11/17/17 05:15 Anisocytosis Not Reportable 11/17/17 05:15 Microcytosis Not Reportable 11/17/17 05:15 Macrocytosis Not Reportable 11/17/17 05:15 Spherocytes Not Reportable 11/17/17 05:15 Pappenheimer Bodies Not Reportable 11/17/17 05:15 Sickle Cells Not Reportable 11/17/17 05:15 Target Cells Not Reportable 11/17/17 05:15 Tear Drop Cells Not Reportable 11/17/17 05:15 Ovalocytes Not Reportable 11/17/17 05:15 Helmet Cells Not Reportable 11/17/17 05:15 [place] Bodies Not Reportable 11/17/17 05:15 [place] Rings Not Reportable 11/17/17 05:15 [place] Cells Not Reportable 11/17/17 05:15 Bite Cells Not Reportable 11/17/17 05:15 Crenated Cell Not Reportable 11/17/17 05:15 Elliptocytes Not Reportable 11/17/17 05:15 Acanthocytes (Spur) Not Reportable 11/17/17 05:15 Rouleaux Not Reportable 11/17/17 05:15 Hemoglobin C Crystals Not Reportable 11/17/17 05:15 Schistocytes Not Reportable 11/17/17 05:15 Malaria parasites Not Reportable 11/17/17 05:15 Munir Bodies Not Reportable 11/17/17 05:15 Hem Pathologist Commnt No 11/17/17 05:15 PT 18.6 Sec. (12.2-14.9) H 11/17/17 05:15 INR 1.46 (0.87-1.13) H 11/17/17 05:15 POC ABG pH 7.487 (7.35-7.45) H 11/17/17 04:16 POC ABG pCO2 37.3 (35-45) 11/17/17 04:16 POC ABG pO2 158 (80-105) H 11/17/17 04:16 POC ABG HCO3 28.3 11/17/17 04:16 POC ABG Total CO2 29 11/17/17 04:16 POC ABG O2 Sat 100 11/17/17 04:16 POC ABG Base Excess 5 11/17/17 04:16 VBG pH 6.881 (7.320-7.420) L* 11/11/17 00:01 FiO2 60 % 11/17/17 04:16 Sodium 137 mmol/L (137-145) 11/18/17 05:30 Potassium 4.3 mmol/L (3.6-5.0) D 11/18/17 05:30 Chloride 98.8 mmol/L (98-107) 11/18/17 05:30 Carbon Dioxide 24 mmol/L (22-30) 11/18/17 05:30 Anion Gap 19 mmol/L 11/18/17 05:30 BUN 63 mg/dL (7-17) H 11/18/17 05:30 Creatinine 3.6 mg/dL (0.7-1.2) H 11/18/17 05:30 Estimated GFR 14 ml/min 11/18/17 05:30 BUN/Creatinine Ratio 18 % 11/18/17 05:30 Glucose 299 mg/dL (65-100) H 11/18/17 05:30 POC Glucose 377 (70-105) H 11/18/17 11:58 Lactic Acid 2.80 mmol/L (0.7-2.0) H* 11/14/17 Unknown Calcium 7.6 mg/dL (8.4-10.2) L 11/18/17 05:30 Phosphorus 4.90 mg/dL (2.5-4.5) H 11/13/17 06:00 Magnesium 1.20 mg/dL (1.7-2.3) L 11/13/17 06:00 Total Bilirubin 0.30 mg/dL (0.1-1.2) 11/18/17 05:30 AST 1870 units/L (5-40) H 11/18/17 05:30 ALT 344 units/L (7-56) H 11/18/17 05:30 Alkaline Phosphatase 264 units/L (35-129) H 11/18/17 05:30 Total Creatine Kinase 363 units/L (30-135) H 11/16/17 04:40 CK-MB (CK-2) 31.9 ng/mL (0.0-4.0) H 11/11/17 10:45 CK-MB (CK-2) Rel Index 3.0 (0-4) 11/11/17 10:45 Troponin T 0.041 ng/mL (0.00-0.029) H D 11/11/17 10:45 C-Reactive Protein 7.40 mg/dL (0.00-1.30) H 11/11/17 12:40 Total Protein 3.7 g/dL (6.3-8.2) L 11/18/17 05:30 Albumin 1.9 g/dL (3.9-5) L 11/18/17 05:30 Albumin/Globulin Ratio 1.1 % 11/18/17 05:30 Triglycerides 510 mg/dL (2-149) H 11/11/17 10:45 Cholesterol 170 mg/dL (50-199) 11/11/17 10:45 LDL Cholesterol Direct TNR 11/11/17 10:45 HDL Cholesterol 26 mg/dL (40-59) L 11/11/17 10:45 Cholesterol/HDL Ratio 6.53 % 11/11/17 10:45 TSH 15.990 mlU/mL (0.270-4.200) H 11/10/17 23:15 Urine Color Yellow (Yellow) 11/10/17 Unknown Urine Turbidity Clear (Clear) 11/10/17 Unknown Urine pH 5.0 (5.0-7.0) 11/10/17 Unknown Ur Specific [place] 1.016 (1.003-1.030) 11/10/17 Unknown Urine Protein 30 mg/dl mg/dL (Negative) 11/10/17 Unknown Urine Glucose (UA) >=500 mg/dL (Negative) 11/10/17 Unknown Urine Ketones 80 mg/dL (Negative) 11/10/17 Unknown Urine Blood Mod (Negative) 11/10/17 Unknown Urine Nitrite Neg (Negative) 11/10/17 Unknown Urine Bilirubin Neg (Negative) 11/10/17 Unknown Urine Urobilinogen < 2.0 mg/dL (<2.0) 11/10/17 Unknown Ur Leukocyte Esterase Neg (Negative) 11/10/17 Unknown Urine WBC (Auto) 8.0 /HPF (0.0-6.0) H 11/10/17 Unknown Urine RBC (Auto) 1.0 /HPF (0.0-6.0) 11/10/17 Unknown U Epithel Cells (Auto) < 1.0 /HPF (0-13.0) 11/10/17 Unknown Urine Bacteria (Auto) 1+ /HPF (Negative) 11/10/17 Unknown Urine Mucus Few /HPF 11/10/17 Unknown Random Vancomycin 28.6 ug/mL (0-40.0) 11/14/17 05:25 Urine Opiates Screen Presumptive negative 11/10/17 Unknown Urine Methadone Screen Presumptive negative 11/10/17 Unknown Ur Barbiturates Screen Presumptive negative 11/10/17 Unknown Ur Phencyclidine Scrn Presumptive negative 11/10/17 Unknown Ur Amphetamines Screen Presumptive negative 11/10/17 Unknown U Benzodiazepines Scrn Presumptive negative 11/10/17 Unknown Urine Cocaine Screen Presumptive negative 11/10/17 Unknown U Marijuana (THC) Screen Presumptive negative 11/10/17 Unknown Drugs of Abuse Note Disclamer 11/10/17 Unknown Plasma/Serum Alcohol < 0.01 % (0-0.07) 11/14/17 12:45 Hepatitis A IgM Ab Non-reactive (NonReactive) 11/16/17 05:50 Hep Bs Antigen Non-reactive (Negative) 11/16/17 05:50 Hep B Core IgM Ab Non-reactive (NonReactive) 11/16/17 05:50 Hepatitis C Antibody Non-reactive (NonReactive) 11/16/17 05:50
--- NOTE | 2017-11-18 15:12 | Progress Note ---
Assessment and Plan 37 year old female prewsented in DKA, had multiple cardiac arrests and remains unresponsive on the ventilator. CT brain reveals diffuse edema and loss of santoyo -white matter distinction, compatible with severe anoxic brain injury. EEG reveals no cortical activity. On exam there is no brain stem function. Plan -Agree with Dr. Dale. There is irreversible brain injury. Agree that it is reasonable to withdraw the ventilator. Subjective Date of service: 11/18/17 Principal diagnosis: elevated LFTs Interval history: This is a 37 yo woman with history of DM type 2, HTN, Hypothyroidism, presented to the ED via EMS after she was found by her mother at home on the floor and extremely lethargic. She was brought to the ED for evaluation and was subsequently diagnosed with DKA, bilateral PNA, septic shock, ARF and hyperkalemia. Upon transfer from ED to CCU, she became unresponsive and developed cardiopulmonary arrest. She was intubated and remains intubated. She subsequently had 3 more cardiac arrests on the same day. The patient remains on the ventilator, unresponsive. She is on no sedation. Objective - Exam Narrative Exam: Blood pressure remains at a MAP of 100. On no pressors. Dialysis has been started. The patient has no response to chest rub or deep pain stimuli. Eyes remain midline. Pupils are fixed and dilated. No corneal response. No gag reflex - Vital Sign Vital Signs - 12hr 11/18/17 11/18/17 11/18/17 03:16 03:30 03:46 Temperature Pulse Rate 67 66 67 Pulse Rate [ Right Dorsalis Pedis] Respiratory 26 H 26 H 26 H Rate Blood Pressure 107/68 107/68 107/68 O2 Sat by Pulse 97 97 97 Oximetry 11/18/17 11/18/17 11/18/17 03:47 04:00 04:16 Temperature 98.9 F Pulse Rate 66 67 67 Pulse Rate [ Right Dorsalis Pedis] Respiratory 26 H 26 H Rate Blood Pressure 107/68 107/68 107/68 O2 Sat by Pulse 96 96 96 Oximetry 11/18/17 11/18/17 11/18/17 04:30 04:46 05:00 Temperature Pulse Rate 67 67 67 Pulse Rate [ Right Dorsalis Pedis] Respiratory 26 H 26 H 26 H Rate Blood Pressure 107/68 107/68 108/67 O2 Sat by Pulse 97 97 96 Oximetry 11/18/17 11/18/1718 05:16 05:30 05:46 Temperature Pulse Rate 67 77 75 Pulse Rate [ Right Dorsalis Pedis] Respiratory 26 H 26 H 26 H Rate Blood Pressure 108/67 108/67 108/67 O2 Sat by Pulse 97 97 96 Oximetry 11/18/17 11/18/17 11/18/17 06:00 06:16 06:30 Temperature Pulse Rate 73 71 71 Pulse Rate [ Right Dorsalis Pedis] Respiratory 26 H 26 H 26 H Rate Blood Pressure 103/60 103/60 103/60 O2 Sat by Pulse 96 97 96 Oximetry 11/18/17 11/18/17 11/18/17 06:46 07:00 07:15 Temperature Pulse Rate 72 72 72 Pulse Rate [ Right Dorsalis Pedis] Respiratory 26 H 26 H 26 H Rate Blood Pressure 103/60 125/91 125/91 O2 Sat by Pulse 96 97 97 Oximetry 11/18/17 11/18/17 11/18/17 07:30 07:46 08:00 Temperature Pulse Rate 72 72 71 Pulse Rate [ Right Dorsalis Pedis] Respiratory 26 H 26 H 25 H Rate Blood Pressure 103/60 125/91 124/89 O2 Sat by Pulse 96 97 98 Oximetry 11/18/17 11/18/17 11/18/17 08:16 08:30 08:46 Temperature Pulse Rate 76 75 74 Pulse Rate [ Right Dorsalis Pedis] Respiratory 26 H 26 H 26 H Rate Blood Pressure 124/89 124/89 124/89 O2 Sat by Pulse 97 98 98 Oximetry 11/18/17 11/18/17 11/18/17 08:53 09:00 09:16 Temperature Pulse Rate 73 73 73 Pulse Rate [ Right Dorsalis Pedis] Respiratory 26 H 26 H Rate Blood Pressure 124/89 125/81 124/89 O2 Sat by Pulse 97 98 98 Oximetry 11/18/17 11/18/17 11/18/17 09:30 09:46 10:00 Temperature 98.6 F Pulse Rate 72 72 72 Pulse Rate [ Right Dorsalis Pedis] Respiratory 26 H 26 H 26 H Rate Blood Pressure 124/89 125/81 125/81 O2 Sat by Pulse 98 98 98 Oximetry 11/18/17 11/18/17 11/18/17 10:16 10:30 10:46 Temperature Pulse Rate 72 72 72 Pulse Rate [ Right Dorsalis Pedis] Respiratory 26 H 26 H 25 H Rate Blood Pressure 123/79 123/79 123/79 O2 Sat by Pulse 98 98 98 Oximetry 11/18/17 11/18/17 11/18/17 11:00 11:16 11:30 Temperature Pulse Rate 74 73 72 Pulse Rate [ Right Dorsalis Pedis] Respiratory 26 H 25 H 26 H Rate Blood Pressure 123/76 123/76 123/76 O2 Sat by Pulse 97 97 98 Oximetry 11/18/17 11/18/17 11/18/17 11:46 12:00 12:16 Temperature 99.7 F H Pulse Rate 72 72 73 Pulse Rate [ 77 Right Dorsalis Pedis] Respiratory 25 H 26 H 25 H Rate Blood Pressure 123/76 104/54 104/54 O2 Sat by Pulse 97 97 98 Oximetry 11/18/17 11/18/17 11/18/17 12:30 12:46 13:00 Temperature Pulse Rate 83 80 Pulse Rate [ Right Dorsalis Pedis] Respiratory 26 H 28 H Rate Blood Pressure 104/54 104/54 119/80 O2 Sat by Pulse 98 97 97 Oximetry 11/18/17 11/18/17 11/18/17 13:16 13:30 13:37 Temperature Pulse Rate 73 72 71 Pulse Rate [ Right Dorsalis Pedis] Respiratory 26 H 26 H Rate Blood Pressure 119/80 119/80 119/80 O2 Sat by Pulse 97 98 98 Oximetry 11/18/17 11/18/17 11/18/17 13:45 14:00 14:16 Temperature Pulse Rate 70 71 68 Pulse Rate [ Right Dorsalis Pedis] Respiratory 26 H 26 H 25 H Rate Blood Pressure 119/80 111/63 119/80 O2 Sat by Pulse 98 98 98 Oximetry - Laboratory Findings CBC and BMP: 11/17/17 05:15 11/18/17 05:30 Abnormal Lab Findings: Abnormal Labs 11/10/17 11/10/17 11/10/17 19:54 20:18 20:18 WBC 39.8 H RBC 3.59 L Hgb Hct MCV 117 H MCH MCHC 27 L RDW Plt Count 469 H Seg Neuts % (Manual) 93.5 H Lymphocytes % (Manual) 3.0 L Seg Neutrophils # Man 37.2 H Lymphocytes # (Manual) Monocytes # (Manual) 1.0 H Basophils # (Manual) 0.2 H PT 18.8 H INR 1.48 H POC ABG pH POC ABG pCO2 POC ABG pO2 VBG pH Sodium Potassium Chloride Carbon Dioxide BUN Creatinine Glucose POC Glucose 488 H Lactic Acid Calcium Phosphorus Magnesium AST ALT Alkaline Phosphatase Total Creatine Kinase CK-MB (CK-2) Troponin T C-Reactive Protein Total Protein Albumin Triglycerides HDL Cholesterol TSH Urine WBC (Auto) 11/10/17 11/10/17 11/10/17 20:18 20:18 20:18 WBC RBC Hgb Hct MCV MCH MCHC RDW Plt Count Seg Neuts % (Manual) Lymphocytes % (Manual) Seg Neutrophils # Man Lymphocytes # (Manual) Monocytes # (Manual) Basophils # (Manual) PT INR POC ABG pH POC ABG pCO2 POC ABG pO2 VBG pH 6.763 L* Sodium 125 L Potassium 7.5 H* Chloride 82.9 L Carbon Dioxide 2 L* BUN 33 H Creatinine 1.8 H Glucose 976 H* POC Glucose Lactic Acid 3.00 H* Calcium 7.6 L Phosphorus Magnesium AST ALT Alkaline Phosphatase Total Creatine Kinase CK-MB (CK-2) Troponin T C-Reactive Protein Total Protein 6.2 L Albumin 3.5 L Triglycerides HDL Cholesterol TSH Urine WBC (Auto) 11/10/17 11/10/17 11/10/17 20:35 20:35 22:07 WBC RBC Hgb Hct MCV MCH MCHC RDW Plt Count Seg Neuts % (Manual) Lymphocytes % (Manual) Seg Neutrophils # Man Lymphocytes # (Manual) Monocytes # (Manual) Basophils # (Manual) PT INR POC ABG pH POC ABG pCO2 POC ABG pO2 VBG pH Sodium 124 L Potassium 7.6 H* Chloride 82.0 L Carbon Dioxide 3 L* BUN 33 H Creatinine 1.8 H Glucose 977 H* POC Glucose 481 H Lactic Acid Calcium 7.8 L Phosphorus 9.40 H Magnesium 2.70 H AST ALT Alkaline Phosphatase Total Creatine Kinase CK-MB (CK-2) Troponin T C-Reactive Protein Total Protein Albumin Triglycerides HDL Cholesterol TSH Urine WBC (Auto) 11/10/17 11/10/17 11/10/17 23:06 23:06 23:15 WBC RBC Hgb Hct MCV MCH MCHC RDW Plt Count Seg Neuts % (Manual) Lymphocytes % (Manual) Seg Neutrophils # Man Lymphocytes # (Manual) Monocytes # (Manual) Basophils # (Manual) PT INR POC ABG pH POC ABG pCO2 POC ABG pO2 VBG pH Sodium 133 L D Potassium 5.6 H D Chloride 97.1 L Carbon Dioxide 3 L* BUN 32 H Creatinine 1.6 H Glucose 664 H* POC Glucose Lactic Acid 2.30 H* Calcium 6.8 L Phosphorus Magnesium AST ALT Alkaline Phosphatase Total Creatine Kinase CK-MB (CK-2) Troponin T C-Reactive Protein Total Protein Albumin Triglycerides HDL Cholesterol TSH 15.990 H Urine WBC (Auto) 11/10/17 11/10/17 11/11/17 23:29 Unknown 00:01 WBC RBC Hgb Hct MCV MCH MCHC RDW Plt Count Seg Neuts % (Manual) Lymphocytes % (Manual) Seg Neutrophils # Man Lymphocytes # (Manual) Monocytes # (Manual) Basophils # (Manual) PT INR POC ABG pH POC ABG pCO2 POC ABG pO2 VBG pH 6.881 L* Sodium Potassium Chloride Carbon Dioxide BUN Creatinine Glucose POC Glucose 481 H Lactic Acid Calcium Phosphorus Magnesium AST ALT Alkaline Phosphatase Total Creatine Kinase CK-MB (CK-2) Troponin T C-Reactive Protein Total Protein Albumin Triglycerides HDL Cholesterol TSH Urine WBC (Auto) 8.0 H 11/11/17 11/11/17 11/11/17 00:01 00:46 00:46 WBC RBC Hgb Hct MCV MCH MCHC RDW Plt Count Seg Neuts % (Manual) Lymphocytes % (Manual) Seg Neutrophils # Man Lymphocytes # (Manual) Monocytes # (Manual) Basophils # (Manual) PT INR POC ABG pH POC ABG pCO2 POC ABG pO2 VBG pH Sodium 135 L Potassium Chloride Carbon Dioxide 3 L* 5 L* BUN 32 H 32 H Creatinine 1.5 H 1.5 H Glucose 579 H* 560 H* POC Glucose Lactic Acid 2.40 H* Calcium 6.9 L 6.8 L Phosphorus Magnesium AST ALT Alkaline Phosphatase Total Creatine Kinase CK-MB (CK-2) Troponin T C-Reactive Protein Total Protein Albumin Triglycerides HDL Cholesterol TSH Urine WBC (Auto) 11/11/17 11/11/17 11/11/17 00:58 02:19 02:21 WBC RBC Hgb Hct MCV MCH MCHC RDW Plt Count Seg Neuts % (Manual) Lymphocytes % (Manual) Seg Neutrophils # Man Lymphocytes # (Manual) Monocytes # (Manual) Basophils # (Manual) PT INR POC ABG pH POC ABG pCO2 POC ABG pO2 VBG pH Sodium Potassium Chloride Carbon Dioxide BUN Creatinine Glucose POC Glucose > 500 H < 40 L 457 H Lactic Acid Calcium Phosphorus Magnesium AST ALT Alkaline Phosphatase Total Creatine Kinase CK-MB (CK-2) Troponin T C-Reactive Protein Total Protein Albumin Triglycerides HDL Cholesterol TSH Urine WBC (Auto) 11/11/17 11/11/17 11/11/17 03:31 03:45 03:45 WBC RBC Hgb Hct MCV MCH MCHC RDW Plt Count Seg Neuts % (Manual) Lymphocytes % (Manual) Seg Neutrophils # Man Lymphocytes # (Manual) Monocytes # (Manual) Basophils # (Manual) PT INR POC ABG pH POC ABG pCO2 POC ABG pO2 VBG pH Sodium 147 H D Potassium 2.9 L* D Chloride Carbon Dioxide 11 L BUN 31 H Creatinine 1.8 H Glucose 587 H* POC Glucose 436 H Lactic Acid 9.50 H* Calcium 6.4 L Phosphorus Magnesium AST ALT Alkaline Phosphatase Total Creatine Kinase CK-MB (CK-2) Troponin T C-Reactive Protein Total Protein Albumin Triglycerides HDL Cholesterol TSH Urine WBC (Auto) 11/11/17 11/11/17 11/11/17 04:16 04:45 05:50 WBC RBC Hgb Hct MCV MCH MCHC RDW Plt Count Seg Neuts % (Manual) Lymphocytes % (Manual) Seg Neutrophils # Man Lymphocytes # (Manual) Monocytes # (Manual) Basophils # (Manual) PT INR POC ABG pH 7.036 L POC ABG pCO2 POC ABG pO2 66 L VBG pH Sodium Potassium Chloride Carbon Dioxide BUN Creatinine Glucose POC Glucose 495 H > 500 H Lactic Acid Calcium Phosphorus Magnesium AST ALT Alkaline Phosphatase Total Creatine Kinase CK-MB (CK-2) Troponin T C-Reactive Protein Total Protein Albumin Triglycerides HDL Cholesterol TSH Urine WBC (Auto) 11/11/17 11/11/17 11/11/17 06:29 06:29 06:41 WBC RBC Hgb Hct MCV MCH MCHC RDW Plt Count Seg Neuts % (Manual) Lymphocytes % (Manual) Seg Neutrophils # Man Lymphocytes # (Manual) Monocytes # (Manual) Basophils # (Manual) PT INR POC ABG pH POC ABG pCO2 POC ABG pO2 VBG pH Sodium 149 H Potassium 3.0 L Chloride 109.5 H Carbon Dioxide 17 L BUN 31 H Creatinine 1.7 H Glucose 407 H POC Glucose 387 H Lactic Acid 2.60 H* Calcium 6.2 L Phosphorus Magnesium AST ALT Alkaline Phosphatase Total Creatine Kinase CK-MB (CK-2) Troponin T C-Reactive Protein Total Protein Albumin Triglycerides HDL Cholesterol TSH Urine WBC (Auto) 11/11/17 11/11/17 11/11/17 07:05 07:07 07:07 WBC RBC Hgb Hct MCV MCH MCHC RDW Plt Count Seg Neuts % (Manual) Lymphocytes % (Manual) Seg Neutrophils # Man Lymphocytes # (Manual) Monocytes # (Manual) Basophils # (Manual) PT INR POC ABG pH POC ABG pCO2 POC ABG pO2 VBG pH Sodium 151 H Potassium 3.0 L Chloride 107.5 H Carbon Dioxide 11 L BUN 31 H Creatinine 1.8 H Glucose 541 H* POC Glucose 378 H Lactic Acid Calcium 6.5 L Phosphorus Magnesium AST ALT Alkaline Phosphatase Total Creatine Kinase 686 H CK-MB (CK-2) 19.6 H Troponin T C-Reactive Protein Total Protein Albumin Triglycerides HDL Cholesterol TSH Urine WBC (Auto) 11/11/17 11/11/17 11/11/17 08:50 08:52 09:57 WBC RBC Hgb Hct MCV MCH MCHC RDW Plt Count Seg Neuts % (Manual) Lymphocytes % (Manual) Seg Neutrophils # Man Lymphocytes # (Manual) Monocytes # (Manual) Basophils # (Manual) PT INR POC ABG pH 7.175 L POC ABG pCO2 45.1 H POC ABG pO2 33 L VBG pH Sodium Potassium Chloride Carbon Dioxide BUN Creatinine Glucose POC Glucose 256 H 232 H Lactic Acid Calcium Phosphorus Magnesium AST ALT Alkaline Phosphatase Total Creatine Kinase CK-MB (CK-2) Troponin T C-Reactive Protein Total Protein Albumin Triglycerides HDL Cholesterol TSH Urine WBC (Auto) 11/11/17 11/11/17 11/11/17 10:45 10:45 11:08 WBC RBC Hgb Hct MCV MCH 33 H MCHC RDW Plt Count Seg Neuts % (Manual) Lymphocytes % (Manual) Seg Neutrophils # Man Lymphocytes # (Manual) Monocytes # (Manual) Basophils # (Manual) PT INR POC ABG pH 7.157 L POC ABG pCO2 52.2 H POC ABG pO2 31 L VBG pH Sodium Potassium Chloride Carbon Dioxide BUN Creatinine Glucose POC Glucose Lactic Acid Calcium Phosphorus Magnesium AST ALT Alkaline Phosphatase Total Creatine Kinase 1041 H CK-MB (CK-2) 31.9 H Troponin T 0.041 H D C-Reactive Protein Total Protein Albumin Triglycerides 510 H HDL Cholesterol 26 L TSH Urine WBC (Auto) 11/11/17 11/11/17 11/11/17 11:12 12:33 12:38 WBC RBC Hgb Hct MCV MCH MCHC RDW Plt Count Seg Neuts % (Manual) Lymphocytes % (Manual) Seg Neutrophils # Man Lymphocytes # (Manual) Monocytes # (Manual) Basophils # (Manual) PT INR POC ABG pH 7.258 L POC ABG pCO2 94.5 H POC ABG pO2 50 L VBG pH Sodium Potassium Chloride Carbon Dioxide BUN Creatinine Glucose POC Glucose 246 H 265 H Lactic Acid Calcium Phosphorus Magnesium AST ALT Alkaline Phosphatase Total Creatine Kinase CK-MB (CK-2) Troponin T C-Reactive Protein Total Protein Albumin Triglycerides HDL Cholesterol TSH Urine WBC (Auto) 11/11/17 11/11/17 11/11/17 12:40 12:40 12:40 WBC RBC Hgb Hct MCV MCH MCHC RDW Plt Count Seg Neuts % (Manual) Lymphocytes % (Manual) Seg Neutrophils # Man Lymphocytes # (Manual) Monocytes # (Manual) Basophils # (Manual) PT INR POC ABG pH POC ABG pCO2 POC ABG pO2 VBG pH Sodium 171 H* D Potassium 2.9 L* Chloride 118.2 H Carbon Dioxide 39 H D BUN 28 H Creatinine 1.8 H Glucose 301 H POC Glucose Lactic Acid 11.70 H* Calcium 11.4 H D Phosphorus Magnesium AST ALT Alkaline Phosphatase Total Creatine Kinase CK-MB (CK-2) Troponin T C-Reactive Protein 7.40 H Total Protein Albumin Triglycerides HDL Cholesterol TSH Urine WBC (Auto) 11/11/17 11/11/17 11/11/17 13:58 14:53 15:42 WBC RBC Hgb Hct MCV MCH MCHC RDW Plt Count Seg Neuts % (Manual) Lymphocytes % (Manual) Seg Neutrophils # Man Lymphocytes # (Manual) Monocytes # (Manual) Basophils # (Manual) PT INR POC ABG pH POC ABG pCO2 POC ABG pO2 VBG pH Sodium Potassium Chloride Carbon Dioxide BUN Creatinine Glucose POC Glucose 244 H 273 H 311 H Lactic Acid Calcium Phosphorus Magnesium AST ALT Alkaline Phosphatase Total Creatine Kinase CK-MB (CK-2) Troponin T C-Reactive Protein Total Protein Albumin Triglycerides HDL Cholesterol TSH Urine WBC (Auto) 11/11/17 11/11/17 11/11/17 16:08 17:09 18:41 WBC RBC Hgb Hct MCV MCH MCHC RDW Plt Count Seg Neuts % (Manual) Lymphocytes % (Manual) Seg Neutrophils # Man Lymphocytes # (Manual) Monocytes # (Manual) Basophils # (Manual) PT INR POC ABG pH POC ABG pCO2 POC ABG pO2 VBG pH Sodium 153 H D Potassium 3.3 L Chloride 112.6 H Carbon Dioxide 14 L D BUN 30 H Creatinine 2.1 H Glucose 301 H POC Glucose 337 H 262 H Lactic Acid Calcium 7.8 L D Phosphorus Magnesium AST ALT Alkaline Phosphatase Total Creatine Kinase CK-MB (CK-2) Troponin T C-Reactive Protein Total Protein Albumin Triglycerides HDL Cholesterol TSH Urine WBC (Auto) 11/11/17 11/11/17 11/11/17 19:49 20:14 20:25 WBC RBC Hgb Hct MCV MCH MCHC RDW Plt Count Seg Neuts % (Manual) Lymphocytes % (Manual) Seg Neutrophils # Man Lymphocytes # (Manual) Monocytes # (Manual) Basophils # (Manual) PT INR POC ABG pH POC ABG pCO2 POC ABG pO2 VBG pH Sodium 154 H Potassium 2.7 L* Chloride 110.8 H Carbon Dioxide 20 L BUN 31 H Creatinine 2.4 H Glucose 261 H POC Glucose 281 H 265 H Lactic Acid Calcium 7.9 L Phosphorus Magnesium AST ALT Alkaline Phosphatase Total Creatine Kinase CK-MB (CK-2) Troponin T C-Reactive Protein Total Protein Albumin Triglycerides HDL Cholesterol TSH Urine WBC (Auto) 11/11/17 11/11/17 11/11/17 20:53 21:55 23:17 WBC RBC Hgb Hct MCV MCH MCHC RDW Plt Count Seg Neuts % (Manual) Lymphocytes % (Manual) Seg Neutrophils # Man Lymphocytes # (Manual) Monocytes # (Manual) Basophils # (Manual) PT INR POC ABG pH POC ABG pCO2 POC ABG pO2 VBG pH Sodium Potassium Chloride Carbon Dioxide BUN Creatinine Glucose POC Glucose 274 H 209 H 180 H Lactic Acid Calcium Phosphorus Magnesium AST ALT Alkaline Phosphatase Total Creatine Kinase CK-MB (CK-2) Troponin T C-Reactive Protein Total Protein Albumin Triglycerides HDL Cholesterol TSH Urine WBC (Auto) 11/12/17 11/12/17 11/12/17 00:09 00:26 01:12 WBC RBC Hgb Hct MCV MCH MCHC RDW Plt Count Seg Neuts % (Manual) Lymphocytes % (Manual) Seg Neutrophils # Man Lymphocytes # (Manual) Monocytes # (Manual) Basophils # (Manual) PT INR POC ABG pH POC ABG pCO2 POC ABG pO2 VBG pH Sodium 154 H Potassium Chloride 113.1 H Carbon Dioxide 17 L BUN 34 H Creatinine 2.5 H Glucose 144 H POC Glucose 176 H 148 H Lactic Acid Calcium 7.7 L Phosphorus Magnesium AST ALT Alkaline Phosphatase Total Creatine Kinase CK-MB (CK-2) Troponin T C-Reactive Protein Total Protein Albumin Triglycerides HDL Cholesterol TSH Urine WBC (Auto) 11/12/17 11/12/17 11/12/17 02:05 03:27 04:22 WBC RBC Hgb Hct MCV MCH MCHC RDW Plt Count Seg Neuts % (Manual) Lymphocytes % (Manual) Seg Neutrophils # Man Lymphocytes # (Manual) Monocytes # (Manual) Basophils # (Manual) PT INR POC ABG pH POC ABG pCO2 POC ABG pO2 VBG pH Sodium Potassium Chloride Carbon Dioxide BUN Creatinine Glucose POC Glucose 148 H 156 H 137 H Lactic Acid Calcium Phosphorus Magnesium AST ALT Alkaline Phosphatase Total Creatine Kinase CK-MB (CK-2) Troponin T C-Reactive Protein Total Protein Albumin Triglycerides HDL Cholesterol TSH Urine WBC (Auto) 11/12/17 11/12/17 11/12/17 04:42 05:06 05:34 WBC RBC Hgb Hct MCV MCH MCHC RDW Plt Count Seg Neuts % (Manual) Lymphocytes % (Manual) Seg Neutrophils # Man Lymphocytes # (Manual) Monocytes # (Manual) Basophils # (Manual) PT INR POC ABG pH POC ABG pCO2 POC ABG pO2 56 L VBG pH Sodium 154 H Potassium 3.2 L D Chloride 109.8 H Carbon Dioxide BUN 32 H Creatinine 2.6 H Glucose 157 H POC Glucose 163 H Lactic Acid Calcium 7.3 L Phosphorus Magnesium AST ALT Alkaline Phosphatase Total Creatine Kinase CK-MB (CK-2) Troponin T C-Reactive Protein Total Protein Albumin Triglycerides HDL Cholesterol TSH Urine WBC (Auto) 11/12/17 11/12/17 11/12/17 05:42 06:23 06:36 WBC RBC Hgb Hct MCV MCH MCHC RDW Plt Count Seg Neuts % (Manual) Lymphocytes % (Manual) Seg Neutrophils # Man Lymphocytes # (Manual) Monocytes # (Manual) Basophils # (Manual) PT INR POC ABG pH POC ABG pCO2 POC ABG pO2 VBG pH Sodium Potassium Chloride Carbon Dioxide BUN Creatinine Glucose POC Glucose 166 H 171 H 181 H Lactic Acid Calcium Phosphorus Magnesium AST ALT Alkaline Phosphatase Total Creatine Kinase CK-MB (CK-2) Troponin T C-Reactive Protein Total Protein Albumin Triglycerides HDL Cholesterol TSH Urine WBC (Auto) 11/12/17 11/12/17 11/12/17 07:07 08:16 09:10 WBC RBC Hgb Hct MCV MCH MCHC RDW Plt Count Seg Neuts % (Manual) Lymphocytes % (Manual) Seg Neutrophils # Man Lymphocytes # (Manual) Monocytes # (Manual) Basophils # (Manual) PT INR POC ABG pH POC ABG pCO2 POC ABG pO2 VBG pH Sodium Potassium Chloride Carbon Dioxide BUN Creatinine Glucose POC Glucose 170 H 171 H 170 H Lactic Acid Calcium Phosphorus Magnesium AST ALT Alkaline Phosphatase Total Creatine Kinase CK-MB (CK-2) Troponin T C-Reactive Protein Total Protein Albumin Triglycerides HDL Cholesterol TSH Urine WBC (Auto) 11/12/17 11/12/17 11/12/17 11:12 12:13 12:13 WBC RBC Hgb Hct MCV MCH MCHC RDW Plt Count Seg Neuts % (Manual) Lymphocytes % (Manual) Seg Neutrophils # Man Lymphocytes # (Manual) Monocytes # (Manual) Basophils # (Manual) PT INR POC ABG pH 7.316 L POC ABG pCO2 57.4 H POC ABG pO2 46 L VBG pH Sodium Potassium Chloride Carbon Dioxide BUN Creatinine Glucose POC Glucose 145 H 123 H Lactic Acid Calcium Phosphorus Magnesium AST ALT Alkaline Phosphatase Total Creatine Kinase CK-MB (CK-2) Troponin T C-Reactive Protein Total Protein Albumin Triglycerides HDL Cholesterol TSH Urine WBC (Auto) 11/12/17 11/12/17 11/12/17 14:52 18:05 18:05 WBC 29.0 H RBC 3.15 L Hgb Hct 29.4 L D MCV MCH MCHC 35 H RDW Plt Count 115 L Seg Neuts % (Manual) 90.0 H Lymphocytes % (Manual) 6.0 L Seg Neutrophils # Man 26.1 H Lymphocytes # (Manual) Monocytes # (Manual) 1.2 H Basophils # (Manual) PT INR POC ABG pH POC ABG pCO2 POC ABG pO2 VBG pH Sodium 148 H Potassium Chloride Carbon Dioxide BUN 34 H Creatinine 2.9 H Glucose 147 H POC Glucose 139 H Lactic Acid Calcium 6.6 L Phosphorus Magnesium AST ALT Alkaline Phosphatase Total Creatine Kinase CK-MB (CK-2) Troponin T C-Reactive Protein Total Protein Albumin Triglycerides HDL Cholesterol TSH Urine WBC (Auto) 11/12/17 11/12/17 11/12/17 18:19 18:23 18:45 WBC RBC Hgb Hct MCV MCH MCHC RDW Plt Count Seg Neuts % (Manual) Lymphocytes % (Manual) Seg Neutrophils # Man Lymphocytes # (Manual) Monocytes # (Manual) Basophils # (Manual) PT INR POC ABG pH 7.248 L 7.253 L POC ABG pCO2 61.4 H 58.2 H POC ABG pO2 24 L 56 L VBG pH Sodium Potassium Chloride Carbon Dioxide BUN Creatinine Glucose POC Glucose 154 H Lactic Acid Calcium Phosphorus Magnesium AST ALT Alkaline Phosphatase Total Creatine Kinase CK-MB (CK-2) Troponin T C-Reactive Protein Total Protein Albumin Triglycerides HDL Cholesterol TSH Urine WBC (Auto) 11/12/17 11/12/17 11/12/17 19:08 20:12 21:14 WBC RBC Hgb Hct MCV MCH MCHC RDW Plt Count Seg Neuts % (Manual) Lymphocytes % (Manual) Seg Neutrophils # Man Lymphocytes # (Manual) Monocytes # (Manual) Basophils # (Manual) PT INR POC ABG pH POC ABG pCO2 POC ABG pO2 VBG pH Sodium Potassium Chloride Carbon Dioxide BUN Creatinine Glucose POC Glucose 154 H 155 H 130 H Lactic Acid Calcium Phosphorus Magnesium AST ALT Alkaline Phosphatase Total Creatine Kinase CK-MB (CK-2) Troponin T C-Reactive Protein Total Protein Albumin Triglycerides HDL Cholesterol TSH Urine WBC (Auto) 11/12/17 11/12/17 11/13/17 21:30 22:08 01:17 WBC RBC Hgb Hct MCV MCH MCHC RDW Plt Count Seg Neuts % (Manual) Lymphocytes % (Manual) Seg Neutrophils # Man Lymphocytes # (Manual) Monocytes # (Manual) Basophils # (Manual) PT INR POC ABG pH 7.220 L POC ABG pCO2 57.4 H POC ABG pO2 50 L VBG pH Sodium 146 H Potassium Chloride Carbon Dioxide BUN 35 H Creatinine 3.2 H Glucose 120 H POC Glucose 108 H Lactic Acid Calcium 6.3 L Phosphorus Magnesium AST ALT Alkaline Phosphatase Total Creatine Kinase CK-MB (CK-2) Troponin T C-Reactive Protein Total Protein Albumin Triglycerides HDL Cholesterol TSH Urine WBC (Auto) 11/13/17 11/13/17 11/13/17 01:30 01:33 03:31 WBC RBC Hgb Hct MCV MCH MCHC RDW Plt Count Seg Neuts % (Manual) Lymphocytes % (Manual) Seg Neutrophils # Man Lymphocytes # (Manual) Monocytes # (Manual) Basophils # (Manual) PT INR POC ABG pH POC ABG pCO2 POC ABG pO2 VBG pH Sodium 146 H Potassium Chloride Carbon Dioxide BUN 36 H Creatinine 3.4 H Glucose 143 H POC Glucose 117 H 123 H Lactic Acid Calcium 6.0 L Phosphorus Magnesium AST ALT Alkaline Phosphatase Total Creatine Kinase CK-MB (CK-2) Troponin T C-Reactive Protein Total Protein Albumin Triglycerides HDL Cholesterol TSH Urine WBC (Auto) 11/13/17 11/13/17 11/13/17 04:25 05:14 06:00 WBC RBC Hgb Hct MCV MCH MCHC RDW Plt Count Seg Neuts % (Manual) Lymphocytes % (Manual) Seg Neutrophils # Man Lymphocytes # (Manual) Monocytes # (Manual) Basophils # (Manual) PT INR POC ABG pH POC ABG pCO2 POC ABG pO2 VBG pH Sodium Potassium Chloride Carbon Dioxide BUN 39 H Creatinine 3.8 H Glucose 182 H POC Glucose 161 H 163 H Lactic Acid Calcium 6.6 L Phosphorus 4.90 H Magnesium 1.20 L AST ALT Alkaline Phosphatase Total Creatine Kinase CK-MB (CK-2) Troponin T C-Reactive Protein Total Protein Albumin Triglycerides HDL Cholesterol TSH Urine WBC (Auto) 11/13/17 11/13/17 11/13/17 06:00 06:07 06:24 WBC 32.3 H RBC 3.40 L Hgb Hct MCV MCH MCHC RDW Plt Count 99 L Seg Neuts % (Manual) Lymphocytes % (Manual) Seg Neutrophils # Man Lymphocytes # (Manual) Monocytes # (Manual) Basophils # (Manual) PT INR POC ABG pH 7.199 L POC ABG pCO2 58.3 H POC ABG pO2 70 L VBG pH Sodium Potassium Chloride Carbon Dioxide BUN Creatinine Glucose POC Glucose 171 H Lactic Acid Calcium Phosphorus Magnesium AST ALT Alkaline Phosphatase Total Creatine Kinase CK-MB (CK-2) Troponin T C-Reactive Protein Total Protein Albumin Triglycerides HDL Cholesterol TSH Urine WBC (Auto) 11/13/17 11/13/17 11/13/17 07:42 08:55 09:25 WBC RBC Hgb Hct MCV MCH MCHC RDW Plt Count Seg Neuts % (Manual) Lymphocytes % (Manual) Seg Neutrophils # Man Lymphocytes # (Manual) Monocytes # (Manual) Basophils # (Manual) PT INR POC ABG pH POC ABG pCO2 POC ABG pO2 VBG pH Sodium Potassium Chloride Carbon Dioxide BUN Creatinine Glucose POC Glucose 132 H 143 H 123 H Lactic Acid Calcium Phosphorus Magnesium AST ALT Alkaline Phosphatase Total Creatine Kinase CK-MB (CK-2) Troponin T C-Reactive Protein Total Protein Albumin Triglycerides HDL Cholesterol TSH Urine WBC (Auto) 11/13/17 11/13/17 11/13/17 10:01 10:30 11:06 WBC RBC Hgb Hct MCV MCH MCHC RDW Plt Count Seg Neuts % (Manual) Lymphocytes % (Manual) Seg Neutrophils # Man Lymphocytes # (Manual) Monocytes # (Manual) Basophils # (Manual) PT INR POC ABG pH POC ABG pCO2 POC ABG pO2 VBG pH Sodium Potassium Chloride Carbon Dioxide BUN 41 H Creatinine 4.0 H Glucose 127 H POC Glucose 122 H 129 H Lactic Acid Calcium 6.6 L Phosphorus Magnesium AST ALT Alkaline Phosphatase Total Creatine Kinase CK-MB (CK-2) Troponin T C-Reactive Protein Total Protein Albumin Triglycerides HDL Cholesterol TSH Urine WBC (Auto) 11/13/17 11/13/17 11/13/17 12:01 12:08 14:59 WBC RBC Hgb Hct MCV MCH MCHC RDW Plt Count Seg Neuts % (Manual) Lymphocytes % (Manual) Seg Neutrophils # Man Lymphocytes # (Manual) Monocytes # (Manual) Basophils # (Manual) PT INR POC ABG pH 7.307 L POC ABG pCO2 52.9 H POC ABG pO2 VBG pH Sodium Potassium Chloride Carbon Dioxide BUN Creatinine Glucose POC Glucose 122 H 112 H Lactic Acid Calcium Phosphorus Magnesium AST ALT Alkaline Phosphatase Total Creatine Kinase CK-MB (CK-2) Troponin T C-Reactive Protein Total Protein Albumin Triglycerides HDL Cholesterol TSH Urine WBC (Auto) 11/13/17 11/13/17 11/13/17 16:15 17:58 19:08 WBC RBC Hgb Hct MCV MCH MCHC RDW Plt Count Seg Neuts % (Manual) Lymphocytes % (Manual) Seg Neutrophils # Man Lymphocytes # (Manual) Monocytes # (Manual) Basophils # (Manual) PT INR POC ABG pH POC ABG pCO2 POC ABG pO2 VBG pH Sodium Potassium 5.1 H D Chloride Carbon Dioxide BUN 44 H Creatinine 4.3 H Glucose 117 H POC Glucose 128 H 110 H Lactic Acid Calcium 7.0 L Phosphorus Magnesium AST ALT Alkaline Phosphatase Total Creatine Kinase CK-MB (CK-2) Troponin T C-Reactive Protein Total Protein Albumin Triglycerides HDL Cholesterol TSH Urine WBC (Auto) 11/13/17 11/13/1718 19:59 20:22 21:05 WBC RBC Hgb Hct MCV MCH MCHC RDW Plt Count Seg Neuts % (Manual) Lymphocytes % (Manual) Seg Neutrophils # Man Lymphocytes # (Manual) Monocytes # (Manual) Basophils # (Manual) PT INR POC ABG pH POC ABG pCO2 POC ABG pO2 VBG pH Sodium Potassium Chloride Carbon Dioxide BUN 48 H Creatinine 4.5 H Glucose 181 H POC Glucose 180 H 134 H Lactic Acid Calcium 7.0 L Phosphorus Magnesium AST ALT Alkaline Phosphatase Total Creatine Kinase CK-MB (CK-2) Troponin T C-Reactive Protein Total Protein Albumin Triglycerides HDL Cholesterol TSH Urine WBC (Auto) 11/13/17 11/13/17 11/14/17 22:04 23:08 00:08 WBC RBC Hgb Hct MCV MCH MCHC RDW Plt Count Seg Neuts % (Manual) Lymphocytes % (Manual) Seg Neutrophils # Man Lymphocytes # (Manual) Monocytes # (Manual) Basophils # (Manual) PT INR POC ABG pH POC ABG pCO2 POC ABG pO2 VBG pH Sodium Potassium Chloride Carbon Dioxide BUN Creatinine Glucose POC Glucose 135 H 143 H 121 H Lactic Acid Calcium Phosphorus Magnesium AST ALT Alkaline Phosphatase Total Creatine Kinase CK-MB (CK-2) Troponin T C-Reactive Protein Total Protein Albumin Triglycerides HDL Cholesterol TSH Urine WBC (Auto) 11/14/17 11/14/17 11/14/17 00:37 01:07 01:27 WBC RBC Hgb Hct MCV MCH MCHC RDW Plt Count Seg Neuts % (Manual) Lymphocytes % (Manual) Seg Neutrophils # Man Lymphocytes # (Manual) Monocytes # (Manual) Basophils # (Manual) PT INR POC ABG pH 7.308 L POC ABG pCO2 POC ABG pO2 161 H VBG pH Sodium Potassium 5.2 H Chloride Carbon Dioxide BUN 49 H Creatinine 4.6 H Glucose 123 H POC Glucose 106 H Lactic Acid Calcium 6.5 L Phosphorus Magnesium AST ALT Alkaline Phosphatase Total Creatine Kinase CK-MB (CK-2) Troponin T C-Reactive Protein Total Protein Albumin Triglycerides HDL Cholesterol TSH Urine WBC (Auto) 11/14/17 11/14/17 11/14/17 02:20 03:09 04:00 WBC RBC Hgb Hct MCV MCH MCHC RDW Plt Count Seg Neuts % (Manual) Lymphocytes % (Manual) Seg Neutrophils # Man Lymphocytes # (Manual) Monocytes # (Manual) Basophils # (Manual) PT INR POC ABG pH POC ABG pCO2 POC ABG pO2 VBG pH Sodium Potassium 5.5 H Chloride Carbon Dioxide BUN 51 H Creatinine 4.5 H Glucose 181 H POC Glucose 130 H 126 H Lactic Acid Calcium 6.6 L Phosphorus Magnesium AST ALT Alkaline Phosphatase Total Creatine Kinase CK-MB (CK-2) Troponin T C-Reactive Protein Total Protein Albumin Triglycerides HDL Cholesterol TSH Urine WBC (Auto) 11/14/17 11/14/17 11/14/17 04:00 04:36 06:29 WBC 31.6 H RBC 3.39 L Hgb Hct MCV MCH MCHC RDW 15.3 H Plt Count 87 L Seg Neuts % (Manual) Lymphocytes % (Manual) Seg Neutrophils # Man Lymphocytes # (Manual) Monocytes # (Manual) Basophils # (Manual) PT INR POC ABG pH POC ABG pCO2 POC ABG pO2 VBG pH Sodium Potassium Chloride Carbon Dioxide BUN Creatinine Glucose POC Glucose 135 H 166 H Lactic Acid Calcium Phosphorus Magnesium AST ALT Alkaline Phosphatase Total Creatine Kinase CK-MB (CK-2) Troponin T C-Reactive Protein Total Protein Albumin Triglycerides HDL Cholesterol TSH Urine WBC (Auto) 11/14/17 11/14/17 11/14/17 12:02 12:45 12:45 WBC RBC Hgb Hct MCV MCH MCHC RDW Plt Count Seg Neuts % (Manual) Lymphocytes % (Manual) Seg Neutrophils # Man Lymphocytes # (Manual) Monocytes # (Manual) Basophils # (Manual) PT 20.8 H INR 1.68 H POC ABG pH POC ABG pCO2 POC ABG pO2 VBG pH Sodium Potassium 5.5 H Chloride Carbon Dioxide 19 L BUN 58 H Creatinine 4.8 H Glucose 313 H POC Glucose 222 H Lactic Acid Calcium 6.4 L Phosphorus Magnesium AST ALT Alkaline Phosphatase Total Creatine Kinase CK-MB (CK-2) Troponin T C-Reactive Protein Total Protein Albumin Triglycerides HDL Cholesterol TSH Urine WBC (Auto) 11/14/17 11/14/17 11/14/17 16:34 18:12 23:15 WBC RBC Hgb Hct MCV MCH MCHC RDW Plt Count Seg Neuts % (Manual) Lymphocytes % (Manual) Seg Neutrophils # Man Lymphocytes # (Manual) Monocytes # (Manual) Basophils # (Manual) PT INR POC ABG pH POC ABG pCO2 POC ABG pO2 VBG pH Sodium Potassium Chloride Carbon Dioxide 17 L BUN 63 H Creatinine 5.1 H Glucose 368 H POC Glucose 381 H 434 H Lactic Acid Calcium 6.4 L Phosphorus Magnesium AST ALT Alkaline Phosphatase Total Creatine Kinase CK-MB (CK-2) Troponin T C-Reactive Protein Total Protein Albumin Triglycerides HDL Cholesterol TSH Urine WBC (Auto) 11/14/17 11/15/17 11/15/17 Unknown 00:51 04:23 WBC RBC Hgb Hct MCV MCH MCHC RDW Plt Count Seg Neuts % (Manual) Lymphocytes % (Manual) Seg Neutrophils # Man Lymphocytes # (Manual) Monocytes # (Manual) Basophils # (Manual) PT INR POC ABG pH 7.287 L POC ABG pCO2 POC ABG pO2 141 H VBG pH Sodium Potassium Chloride Carbon Dioxide BUN Creatinine Glucose POC Glucose 415 H Lactic Acid 2.80 H* Calcium Phosphorus Magnesium AST ALT Alkaline Phosphatase Total Creatine Kinase CK-MB (CK-2) Troponin T C-Reactive Protein Total Protein Albumin Triglycerides HDL Cholesterol TSH Urine WBC (Auto) 11/15/17 11/15/17 11/15/17 05:00 05:43 10:00 WBC 12.0 H RBC 2.23 L Hgb 7.2 L D Hct 21.7 L D MCV MCH MCHC RDW Plt Count 64 L Seg Neuts % (Manual) 79.0 H Lymphocytes % (Manual) 4.0 L Seg Neutrophils # Man 9.5 H Lymphocytes # (Manual) 0.5 L Monocytes # (Manual) Basophils # (Manual) PT INR POC ABG pH POC ABG pCO2 POC ABG pO2 VBG pH Sodium Potassium Chloride Carbon Dioxide 18 L BUN 73 H Creatinine 5.3 H Glucose 461 H POC Glucose 416 H Lactic Acid Calcium 6.7 L Phosphorus Magnesium AST ALT Alkaline Phosphatase Total Creatine Kinase CK-MB (CK-2) Troponin T C-Reactive Protein Total Protein Albumin Triglycerides HDL Cholesterol TSH Urine WBC (Auto) 11/15/17 11/15/17 11/15/17 10:00 12:24 18:42 WBC RBC Hgb Hct MCV MCH MCHC RDW Plt Count Seg Neuts % (Manual) Lymphocytes % (Manual) Seg Neutrophils # Man Lymphocytes # (Manual) Monocytes # (Manual) Basophils # (Manual) PT INR POC ABG pH POC ABG pCO2 POC ABG pO2 VBG pH Sodium Potassium Chloride Carbon Dioxide 21 L BUN 76 H Creatinine 5.7 H Glucose 386 H POC Glucose 374 H 343 H Lactic Acid Calcium 6.9 L Phosphorus Magnesium AST ALT Alkaline Phosphatase Total Creatine Kinase CK-MB (CK-2) Troponin T C-Reactive Protein Total Protein Albumin Triglycerides HDL Cholesterol TSH Urine WBC (Auto) 11/16/17 11/16/17 11/16/17 00:00 04:19 04:40 WBC RBC 2.60 L Hgb 8.5 L Hct 24.4 L MCV MCH 33 H MCHC 35 H RDW Plt Count 65 L Seg Neuts % (Manual) 92.0 H Lymphocytes % (Manual) 2.0 L Seg Neutrophils # Man 10.0 H Lymphocytes # (Manual) 0.2 L Monocytes # (Manual) Basophils # (Manual) PT INR POC ABG pH POC ABG pCO2 POC ABG pO2 66 L VBG pH Sodium Potassium Chloride Carbon Dioxide BUN Creatinine Glucose POC Glucose 205 H Lactic Acid Calcium Phosphorus Magnesium AST ALT Alkaline Phosphatase Total Creatine Kinase CK-MB (CK-2) Troponin T C-Reactive Protein Total Protein Albumin Triglycerides HDL Cholesterol TSH Urine WBC (Auto) 11/16/17 11/16/17 11/16/17 04:40 05:14 14:08 WBC RBC Hgb Hct MCV MCH MCHC RDW Plt Count Seg Neuts % (Manual) Lymphocytes % (Manual) Seg Neutrophils # Man Lymphocytes # (Manual) Monocytes # (Manual) Basophils # (Manual) PT INR POC ABG pH POC ABG pCO2 POC ABG pO2 VBG pH Sodium Potassium 3.2 L Chloride Carbon Dioxide BUN 48 H Creatinine 3.7 H Glucose 142 H POC Glucose 139 H 201 H Lactic Acid Calcium 8.0 L D Phosphorus Magnesium AST 2275 H ALT 647 H Alkaline Phosphatase 268 H Total Creatine Kinase 363 H CK-MB (CK-2) Troponin T C-Reactive Protein Total Protein 3.9 L Albumin 2.1 L Triglycerides HDL Cholesterol TSH Urine WBC (Auto) 11/16/17 11/16/17 11/17/17 18:51 23:48 04:16 WBC RBC Hgb Hct MCV MCH MCHC RDW Plt Count Seg Neuts % (Manual) Lymphocytes % (Manual) Seg Neutrophils # Man Lymphocytes # (Manual) Monocytes # (Manual) Basophils # (Manual) PT INR POC ABG pH 7.487 H POC ABG pCO2 POC ABG pO2 158 H VBG pH Sodium Potassium Chloride Carbon Dioxide BUN Creatinine Glucose POC Glucose 130 H 138 H Lactic Acid Calcium Phosphorus Magnesium AST ALT Alkaline Phosphatase Total Creatine Kinase CK-MB (CK-2) Troponin T C-Reactive Protein Total Protein Albumin Triglycerides HDL Cholesterol TSH Urine WBC (Auto) 11/17/17 11/17/17 11/17/17 05:15 05:15 05:15 WBC RBC 2.58 L Hgb 8.3 L Hct 24.4 L MCV MCH MCHC RDW Plt Count 49 L Seg Neuts % (Manual) 83.0 H Lymphocytes % (Manual) 4.0 L Seg Neutrophils # Man Lymphocytes # (Manual) 0.4 L Monocytes # (Manual) Basophils # (Manual) PT 18.6 H INR 1.46 H POC ABG pH POC ABG pCO2 POC ABG pO2 VBG pH Sodium Potassium 3.4 L Chloride Carbon Dioxide BUN 70 H Creatinine 4.6 H Glucose 107 H POC Glucose Lactic Acid Calcium 7.5 L Phosphorus Magnesium AST 2722 H ALT 504 H Alkaline Phosphatase 278 H Total Creatine Kinase CK-MB (CK-2) Troponin T C-Reactive Protein Total Protein 3.8 L Albumin 2.3 L Triglycerides HDL Cholesterol TSH Urine WBC (Auto) 11/17/17 11/17/17 11/17/17 06:07 11:28 18:08 WBC RBC Hgb Hct MCV MCH MCHC RDW Plt Count Seg Neuts % (Manual) Lymphocytes % (Manual) Seg Neutrophils # Man Lymphocytes # (Manual) Monocytes # (Manual) Basophils # (Manual) PT INR POC ABG pH POC ABG pCO2 POC ABG pO2 VBG pH Sodium Potassium Chloride Carbon Dioxide BUN Creatinine Glucose POC Glucose 126 H 195 H 256 H Lactic Acid Calcium Phosphorus Magnesium AST ALT Alkaline Phosphatase Total Creatine Kinase CK-MB (CK-2) Troponin T C-Reactive Protein Total Protein Albumin Triglycerides HDL Cholesterol TSH Urine WBC (Auto) 11/18/17 11/18/17 05:30 11:58 WBC RBC Hgb Hct MCV MCH MCHC RDW Plt Count Seg Neuts % (Manual) Lymphocytes % (Manual) Seg Neutrophils # Man Lymphocytes # (Manual) Monocytes # (Manual) Basophils # (Manual) PT INR POC ABG pH POC ABG pCO2 POC ABG pO2 VBG pH Sodium Potassium Chloride Carbon Dioxide BUN 63 H Creatinine 3.6 H Glucose 299 H POC Glucose 377 H Lactic Acid Calcium 7.6 L Phosphorus Magnesium AST 1870 H ALT 344 H Alkaline Phosphatase 264 H Total Creatine Kinase CK-MB (CK-2) Troponin T C-Reactive Protein Total Protein 3.7 L Albumin 1.9 L Triglycerides HDL Cholesterol TSH Urine WBC (Auto)
[2017-11-19] MEDS: HumuLIN R SUB-Q SCH ×4 (06:17→19:03)
[2017-11-19] MEDS: CLEOCIN 600 MG/50 mL 600 MG/50 ML BAG IV SCH ×3 (06:21→17:36)
[2017-11-19] MEDS: SYNTHROID IV SCH (06:21)
[2017-11-19 07:22] LABS: Hematocrit 29.5 % (30.3-42.9); Mean Corpuscular HGB Conc 34 % (30-34); Mean Corpuscular Hemoglobin 32 pg (28-32); Mean Corpuscular Volume 95 fl (79-97); Platelet Count 118 K/mm3 (140-440); Red Cell Distribution Width 14.8 % (13.2-15.2)
[2017-11-19 07:39] LABS: Albumin 1.7 g/dL (3.9-5); Calcium 7.5 mg/dL (8.4-10.2)
--- NOTE | 2017-11-19 09:43 | Progress Note ---
Assessment and Plan 1. Acute kidney injury: LOC in the setting of volume depletion and DKA. Patient was started on hemodialysis on 11/15/2017 due to worsening renal function associated with anuria and hyperkalemia. HD today. 2. Electrolytes: Severe metabolic acidosis, improving. Hypernatremia, improved. 3. Septic shock: On Levophed. 4. DKA. 5. Respiratory failure: On vent. 6. S/p Cardiac arrest. 7. Anemia. 8. Anoxic Encephalopathy. Subjective Date of service: 11/19/17 Principal diagnosis: s/p cardiac arrest Interval history: Patient was seen and examined at the bedside. Objective - Vital Signs Vital signs: Vital Signs - 12hr 11/18/17 11/18/17 11/18/17 22:00 22:04 22:30 Temperature Pulse Rate 61 62 62 Respiratory 26 H 26 H 26 H Rate Blood Pressure 98/60 100/64 O2 Sat by Pulse 98 98 98 Oximetry 11/18/17 11/18/17 11/18/17 22:54 23:00 23:30 Temperature 97.3 F L Pulse Rate 61 62 Respiratory 26 H 26 H Rate Blood Pressure 105/69 105/69 O2 Sat by Pulse 98 98 Oximetry 11/19/17 11/19/17 11/19/17 00:00 00:30 01:00 Temperature Pulse Rate 63 59 L 59 L Respiratory 26 H 26 H 26 H Rate Blood Pressure 105/69 105/69 115/79 O2 Sat by Pulse 98 98 98 Oximetry 11/19/17 11/19/17 11/19/17 01:03 01:30 02:00 Temperature Pulse Rate 59 L 60 62 Respiratory 26 H 26 H Rate Blood Pressure 109/71 109/71 O2 Sat by Pulse 98 99 Oximetry 11/19/17 11/19/17 11/19/17 02:30 03:00 03:29 Temperature 98.9 F Pulse Rate 59 L 62 Respiratory 26 H 26 H Rate Blood Pressure 120/82 120/82 O2 Sat by Pulse 99 99 Oximetry 11/19/17 11/19/17 11/19/17 03:30 04:00 04:20 Temperature Pulse Rate 58 L 61 63 Respiratory 26 H 26 H Rate Blood Pressure 115/78 115/78 101/63 O2 Sat by Pulse 98 97 97 Oximetry 11/19/17 11/19/17 11/19/17 04:30 05:00 05:30 Temperature Pulse Rate 63 59 L 61 Respiratory 26 H 26 H 26 H Rate Blood Pressure 115/78 119/82 119/82 O2 Sat by Pulse 98 98 98 Oximetry 11/19/17 11/19/17 11/19/17 06:00 06:30 07:00 Temperature Pulse Rate 59 L 60 60 Respiratory 26 H 26 H 26 H Rate Blood Pressure 119/82 124/86 130/88 O2 Sat by Pulse 97 97 97 Oximetry 11/19/17 11/19/17 11/19/17 07:30 08:00 08:30 Temperature 98.2 F Pulse Rate 59 L 59 L 58 L Respiratory 26 H 26 H 26 H Rate Blood Pressure 130/88 130/88 131/87 O2 Sat by Pulse 97 97 98 Oximetry 11/19/17 09:00 Temperature Pulse Rate 59 L Respiratory 26 H Rate Blood Pressure 131/87 O2 Sat by Pulse 97 Oximetry - General Appearance General appearance: well-developed, appears stated age, intubated, other (on vent, FiO2 55%) EENT: ATNC Neck: supple Respiratory: Present: Clear to Ascultation Cardiology: regular, S1S2, no murmurs Gastrointestinal: normoactive bowel sounds, no tenderness Integumentary: no rash Neurologic: obtunded Musculoskeletal: other (right groin temp catheter, bilateral trace pedal edema noted) - Lab 11/19/17 06:47 11/19/17 06:47 Most recent lab results Calcium 7.5 mg/dL (8.4-10.2) L 11/19/17 06:47 Phosphorus 4.90 mg/dL (2.5-4.5) H 11/13/17 06:00 Magnesium 1.20 mg/dL (1.7-2.3) L 11/13/17 06:00
[2017-11-19] MEDS: LANTUS SUB-Q SCH (10:39)
[2017-11-19] MEDS: PEPCID PO SCH (10:39)
[2017-11-19] MEDS: ceFAZolin 2 GM in NACL 0.9% 100 ML IV SCH (10:39)
[2017-11-19] MEDS: SODIUM CHLORIDE FLUSH SYRINGE 10 ML IV SCH (10:40)
[2017-11-19] MEDS: DIFLUCAN 200 MG/100 ML BAG IV SCH (10:40)
--- NOTE | 2017-11-19 12:44 | Progress Note ---
Assessment and Plan Acute hypoxemic respiratory failure.. s/p cardiorespiratory arrest Subcutaneous emphysema( resolved) DKA Severe Sepsis with septic shock Severe metabolic acidosis Acute renal failure requiring HD ARDS Hypernatremia Encephalopathy, metabolic/Anoxic -VAP bundle addressed Unfortunately in spite of respiratory hemodynamic improvement, she appears to have suffered severe neurological damage. Continue all supportive care until discussions with the family re goals of care. DNAR Prognosis is grave Awaiting final decisions by her mother re goals of care Subjective Date of service: 11/19/17 Principal diagnosis: s/p cardiac arrest Interval history: 37 y/o female with history of uncontrolled DM, non compliance with diabetes meds , previous admissions due to DKA, gastroparesis; brought to the hospital on 11/10 severely lethargic by her common law at home. Per her , she celebrated her birthday 2 days before admission, she had some drinks with friends. The following day she developed severe nausea, vomiting and abdominal pain. She did not have any cough, SOB or cold symptoms. She did not eat cake or sweets. EMS was called and she had a glucose above 500. In the ED, temp 92, HR 72, R 16, BP 88/31. WBC 39K. Hg 11.5. Plat 469. Sodium 151. Creat 1.8. Glu 541. CXR RLL infiltrate . Intubated in the ER. S/P PEA cardiac arrest Patient is seen today for: Acute hypoxic respiratory, severe sepsis with septic shock, LOC, Acute encephalopathy, s/p cardiac arrest (PEA) Seen and examined. Vitals, labs, medications, chart and imaging reviewed. Oxygenation improved, off vasopressor support Discussed with RT and RN 24 hour events reviewed, no acute overnight events reported Objective - Exam Narrative Exam: GENERAL: well-developed WF, ill appearing, intubated and not sedated HEENT: NCAT, ETT, NGT NECK: Supple. Trachea midline CHEST/LUNGS: good air entry bialterally, clear to auscultation HEART/CARDIOVASCULAR: tachycardic. S1 and S2 positive. ABDOMEN: Abdomen is soft, non tender. ND, No hepatospplenomegaly SKIN: There is no rash. Warm and dry. NEURO: Fixed dilated pupils, no cough or gag reflexes. Not witdrawing to painful stimuli MUSCULOSKELETAL: No joint effusion or tenderness. EXTRIMITY: No edema, no cyanosis or clubbing. PSYCH: unresponsive Vital Signs - 12hr 11/19/17 11/19/17 11/19/17 01:00 01:03 01:30 Temperature Pulse Rate 59 L 59 L 60 Respiratory 26 H 26 H Rate Blood Pressure 115/79 109/71 O2 Sat by Pulse 98 98 Oximetry 11/19/17 11/19/17 11/19/17 02:00 02:30 03:00 Temperature Pulse Rate 62 59 L 62 Respiratory 26 H 26 H 26 H Rate Blood Pressure 109/71 120/82 120/82 O2 Sat by Pulse 99 99 99 Oximetry 11/19/17 11/19/17 11/19/17 03:29 03:30 04:00 Temperature 98.9 F Pulse Rate 58 L 61 Respiratory 26 H 26 H Rate Blood Pressure 115/78 115/78 O2 Sat by Pulse 98 97 Oximetry 11/19/17 11/19/17 11/19/17 04:20 04:30 05:00 Temperature Pulse Rate 63 63 59 L Respiratory 26 H 26 H Rate Blood Pressure 101/63 115/78 119/82 O2 Sat by Pulse 97 98 98 Oximetry 11/19/17 11/19/17 11/19/17 05:30 06:00 06:30 Temperature Pulse Rate 61 59 L 60 Respiratory 26 H 26 H 26 H Rate Blood Pressure 119/82 119/82 124/86 O2 Sat by Pulse 98 97 97 Oximetry 11/19/17 11/19/17 11/19/17 07:00 07:30 08:00 Temperature 98.2 F Pulse Rate 60 59 L 61 Respiratory 26 H 26 H 26 H Rate Blood Pressure 130/88 130/88 123/80 O2 Sat by Pulse 97 97 98 Oximetry 11/19/17 11/19/17 11/19/17 08:30 09:00 09:30 Temperature Pulse Rate 58 L 59 L 61 Respiratory 26 H 26 H 26 H Rate Blood Pressure 131/87 131/87 123/80 O2 Sat by Pulse 98 97 98 Oximetry 11/19/17 11/19/17 11/19/17 10:00 10:30 11:00 Temperature 98.2 F Pulse Rate 62 61 62 Respiratory 26 H 26 H 26 H Rate Blood Pressure 123/80 114/75 114/75 O2 Sat by Pulse 98 97 97 Oximetry 11/19/17 11/19/17 11/19/17 11:15 11:30 11:45 Temperature Pulse Rate 60 61 60 Respiratory Rate Blood Pressure 131/90 117/83 109/74 O2 Sat by Pulse Oximetry 11/19/17 11/19/17 11/19/17 12:00 12:15 12:31 Temperature Pulse Rate 59 L 61 63 Respiratory Rate Blood Pressure 107/74 94/59 94/59 O2 Sat by Pulse 97 Oximetry 11/19/17 12:39 Temperature Pulse Rate 64 Respiratory Rate Blood Pressure 103/67 O2 Sat by Pulse Oximetry CBC and BMP: 11/19/17 06:47 11/19/17 06:47 ABG, PT/INR, D-dimer: ABG POC ABG pH 7.429 (7.35-7.45) 11/19/17 03:52 POC ABG pCO2 38.5 (35-45) 11/19/17 03:52 POC ABG pO2 94 (80-105) 11/19/17 03:52 POC ABG HCO3 25.5 11/19/17 03:52 POC ABG Total CO2 27 11/19/17 03:52 POC ABG O2 Sat 98 11/19/17 03:52 PT/INR, D-dimer PT 18.6 Sec. (12.2-14.9) H 11/17/17 05:15 INR 1.46 (0.87-1.13) H 11/17/17 05:15 Abnormal lab findings: Abnormal Labs 11/10/17 11/10/17 11/10/17 19:54 20:18 20:18 WBC 39.8 H RBC 3.59 L Hgb Hct MCV 117 H MCH MCHC 27 L RDW Plt Count 469 H Seg Neuts % (Manual) 93.5 H Lymphocytes % (Manual) 3.0 L Seg Neutrophils # Man 37.2 H Lymphocytes # (Manual) Monocytes # (Manual) 1.0 H Basophils # (Manual) 0.2 H PT 18.8 H INR 1.48 H POC ABG pH POC ABG pCO2 POC ABG pO2 VBG pH Sodium Potassium Chloride Carbon Dioxide BUN Creatinine Glucose POC Glucose 488 H Lactic Acid Calcium Phosphorus Magnesium AST ALT Alkaline Phosphatase Total Creatine Kinase CK-MB (CK-2) Troponin T C-Reactive Protein Total Protein Albumin Triglycerides HDL Cholesterol TSH Urine WBC (Auto) 11/10/17 11/10/17 11/10/17 20:18 20:18 20:18 WBC RBC Hgb Hct MCV MCH MCHC RDW Plt Count Seg Neuts % (Manual) Lymphocytes % (Manual) Seg Neutrophils # Man Lymphocytes # (Manual) Monocytes # (Manual) Basophils # (Manual) PT INR POC ABG pH POC ABG pCO2 POC ABG pO2 VBG pH 6.763 L* Sodium 125 L Potassium 7.5 H* Chloride 82.9 L Carbon Dioxide 2 L* BUN 33 H Creatinine 1.8 H Glucose 976 H* POC Glucose Lactic Acid 3.00 H* Calcium 7.6 L Phosphorus Magnesium AST ALT Alkaline Phosphatase Total Creatine Kinase CK-MB (CK-2) Troponin T C-Reactive Protein Total Protein 6.2 L Albumin 3.5 L Triglycerides HDL Cholesterol TSH Urine WBC (Auto) 11/10/17 11/10/17 11/10/17 20:35 20:35 22:07 WBC RBC Hgb Hct MCV MCH MCHC RDW Plt Count Seg Neuts % (Manual) Lymphocytes % (Manual) Seg Neutrophils # Man Lymphocytes # (Manual) Monocytes # (Manual) Basophils # (Manual) PT INR POC ABG pH POC ABG pCO2 POC ABG pO2 VBG pH Sodium 124 L Potassium 7.6 H* Chloride 82.0 L Carbon Dioxide 3 L* BUN 33 H Creatinine 1.8 H Glucose 977 H* POC Glucose 481 H Lactic Acid Calcium 7.8 L Phosphorus 9.40 H Magnesium 2.70 H AST ALT Alkaline Phosphatase Total Creatine Kinase CK-MB (CK-2) Troponin T C-Reactive Protein Total Protein Albumin Triglycerides HDL Cholesterol TSH Urine WBC (Auto) 11/10/17 11/10/17 11/10/17 23:06 23:06 23:15 WBC RBC Hgb Hct MCV MCH MCHC RDW Plt Count Seg Neuts % (Manual) Lymphocytes % (Manual) Seg Neutrophils # Man Lymphocytes # (Manual) Monocytes # (Manual) Basophils # (Manual) PT INR POC ABG pH POC ABG pCO2 POC ABG pO2 VBG pH Sodium 133 L D Potassium 5.6 H D Chloride 97.1 L Carbon Dioxide 3 L* BUN 32 H Creatinine 1.6 H Glucose 664 H* POC Glucose Lactic Acid 2.30 H* Calcium 6.8 L Phosphorus Magnesium AST ALT Alkaline Phosphatase Total Creatine Kinase CK-MB (CK-2) Troponin T C-Reactive Protein Total Protein Albumin Triglycerides HDL Cholesterol TSH 15.990 H Urine WBC (Auto) 11/10/17 11/10/17 11/11/17 23:29 Unknown 00:01 WBC RBC Hgb Hct MCV MCH MCHC RDW Plt Count Seg Neuts % (Manual) Lymphocytes % (Manual) Seg Neutrophils # Man Lymphocytes # (Manual) Monocytes # (Manual) Basophils # (Manual) PT INR POC ABG pH POC ABG pCO2 POC ABG pO2 VBG pH 6.881 L* Sodium Potassium Chloride Carbon Dioxide BUN Creatinine Glucose POC Glucose 481 H Lactic Acid Calcium Phosphorus Magnesium AST ALT Alkaline Phosphatase Total Creatine Kinase CK-MB (CK-2) Troponin T C-Reactive Protein Total Protein Albumin Triglycerides HDL Cholesterol TSH Urine WBC (Auto) 8.0 H 11/11/17 11/11/17 11/11/17 00:01 00:46 00:46 WBC RBC Hgb Hct MCV MCH MCHC RDW Plt Count Seg Neuts % (Manual) Lymphocytes % (Manual) Seg Neutrophils # Man Lymphocytes # (Manual) Monocytes # (Manual) Basophils # (Manual) PT INR POC ABG pH POC ABG pCO2 POC ABG pO2 VBG pH Sodium 135 L Potassium Chloride Carbon Dioxide 3 L* 5 L* BUN 32 H 32 H Creatinine 1.5 H 1.5 H Glucose 579 H* 560 H* POC Glucose Lactic Acid 2.40 H* Calcium 6.9 L 6.8 L Phosphorus Magnesium AST ALT Alkaline Phosphatase Total Creatine Kinase CK-MB (CK-2) Troponin T C-Reactive Protein Total Protein Albumin Triglycerides HDL Cholesterol TSH Urine WBC (Auto) 11/11/17 11/11/17 11/11/17 00:58 02:19 02:21 WBC RBC Hgb Hct MCV MCH MCHC RDW Plt Count Seg Neuts % (Manual) Lymphocytes % (Manual) Seg Neutrophils # Man Lymphocytes # (Manual) Monocytes # (Manual) Basophils # (Manual) PT INR POC ABG pH POC ABG pCO2 POC ABG pO2 VBG pH Sodium Potassium Chloride Carbon Dioxide BUN Creatinine Glucose POC Glucose > 500 H < 40 L 457 H Lactic Acid Calcium Phosphorus Magnesium AST ALT Alkaline Phosphatase Total Creatine Kinase CK-MB (CK-2) Troponin T C-Reactive Protein Total Protein Albumin Triglycerides HDL Cholesterol TSH Urine WBC (Auto) 11/11/17 11/11/17 11/11/17 03:31 03:45 03:45 WBC RBC Hgb Hct MCV MCH MCHC RDW Plt Count Seg Neuts % (Manual) Lymphocytes % (Manual) Seg Neutrophils # Man Lymphocytes # (Manual) Monocytes # (Manual) Basophils # (Manual) PT INR POC ABG pH POC ABG pCO2 POC ABG pO2 VBG pH Sodium 147 H D Potassium 2.9 L* D Chloride Carbon Dioxide 11 L BUN 31 H Creatinine 1.8 H Glucose 587 H* POC Glucose 436 H Lactic Acid 9.50 H* Calcium 6.4 L Phosphorus Magnesium AST ALT Alkaline Phosphatase Total Creatine Kinase CK-MB (CK-2) Troponin T C-Reactive Protein Total Protein Albumin Triglycerides HDL Cholesterol TSH Urine WBC (Auto) 11/11/17 11/11/17 11/11/17 04:16 04:45 05:50 WBC RBC Hgb Hct MCV MCH MCHC RDW Plt Count Seg Neuts % (Manual) Lymphocytes % (Manual) Seg Neutrophils # Man Lymphocytes # (Manual) Monocytes # (Manual) Basophils # (Manual) PT INR POC ABG pH 7.036 L POC ABG pCO2 POC ABG pO2 66 L VBG pH Sodium Potassium Chloride Carbon Dioxide BUN Creatinine Glucose POC Glucose 495 H > 500 H Lactic Acid Calcium Phosphorus Magnesium AST ALT Alkaline Phosphatase Total Creatine Kinase CK-MB (CK-2) Troponin T C-Reactive Protein Total Protein Albumin Triglycerides HDL Cholesterol TSH Urine WBC (Auto) 11/11/17 11/11/17 11/11/17 06:29 06:29 06:41 WBC RBC Hgb Hct MCV MCH MCHC RDW Plt Count Seg Neuts % (Manual) Lymphocytes % (Manual) Seg Neutrophils # Man Lymphocytes # (Manual) Monocytes # (Manual) Basophils # (Manual) PT INR POC ABG pH POC ABG pCO2 POC ABG pO2 VBG pH Sodium 149 H Potassium 3.0 L Chloride 109.5 H Carbon Dioxide 17 L BUN 31 H Creatinine 1.7 H Glucose 407 H POC Glucose 387 H Lactic Acid 2.60 H* Calcium 6.2 L Phosphorus Magnesium AST ALT Alkaline Phosphatase Total Creatine Kinase CK-MB (CK-2) Troponin T C-Reactive Protein Total Protein Albumin Triglycerides HDL Cholesterol TSH Urine WBC (Auto) 11/11/17 11/11/17 11/11/17 07:05 07:07 07:07 WBC RBC Hgb Hct MCV MCH MCHC RDW Plt Count Seg Neuts % (Manual) Lymphocytes % (Manual) Seg Neutrophils # Man Lymphocytes # (Manual) Monocytes # (Manual) Basophils # (Manual) PT INR POC ABG pH POC ABG pCO2 POC ABG pO2 VBG pH Sodium 151 H Potassium 3.0 L Chloride 107.5 H Carbon Dioxide 11 L BUN 31 H Creatinine 1.8 H Glucose 541 H* POC Glucose 378 H Lactic Acid Calcium 6.5 L Phosphorus Magnesium AST ALT Alkaline Phosphatase Total Creatine Kinase 686 H CK-MB (CK-2) 19.6 H Troponin T C-Reactive Protein Total Protein Albumin Triglycerides HDL Cholesterol TSH Urine WBC (Auto) 11/11/17 11/11/17 11/11/17 08:50 08:52 09:57 WBC RBC Hgb Hct MCV MCH MCHC RDW Plt Count Seg Neuts % (Manual) Lymphocytes % (Manual) Seg Neutrophils # Man Lymphocytes # (Manual) Monocytes # (Manual) Basophils # (Manual) PT INR POC ABG pH 7.175 L POC ABG pCO2 45.1 H POC ABG pO2 33 L VBG pH Sodium Potassium Chloride Carbon Dioxide BUN Creatinine Glucose POC Glucose 256 H 232 H Lactic Acid Calcium Phosphorus Magnesium AST ALT Alkaline Phosphatase Total Creatine Kinase CK-MB (CK-2) Troponin T C-Reactive Protein Total Protein Albumin Triglycerides HDL Cholesterol TSH Urine WBC (Auto) 11/11/17 11/11/17 11/11/17 10:45 10:45 11:08 WBC RBC Hgb Hct MCV MCH 33 H MCHC RDW Plt Count Seg Neuts % (Manual) Lymphocytes % (Manual) Seg Neutrophils # Man Lymphocytes # (Manual) Monocytes # (Manual) Basophils # (Manual) PT INR POC ABG pH 7.157 L POC ABG pCO2 52.2 H POC ABG pO2 31 L VBG pH Sodium Potassium Chloride Carbon Dioxide BUN Creatinine Glucose POC Glucose Lactic Acid Calcium Phosphorus Magnesium AST ALT Alkaline Phosphatase Total Creatine Kinase 1041 H CK-MB (CK-2) 31.9 H Troponin T 0.041 H D C-Reactive Protein Total Protein Albumin Triglycerides 510 H HDL Cholesterol 26 L TSH Urine WBC (Auto) 11/11/17 11/11/17 11/11/17 11:12 12:33 12:38 WBC RBC Hgb Hct MCV MCH MCHC RDW Plt Count Seg Neuts % (Manual) Lymphocytes % (Manual) Seg Neutrophils # Man Lymphocytes # (Manual) Monocytes # (Manual) Basophils # (Manual) PT INR POC ABG pH 7.258 L POC ABG pCO2 94.5 H POC ABG pO2 50 L VBG pH Sodium Potassium Chloride Carbon Dioxide BUN Creatinine Glucose POC Glucose 246 H 265 H Lactic Acid Calcium Phosphorus Magnesium AST ALT Alkaline Phosphatase Total Creatine Kinase CK-MB (CK-2) Troponin T C-Reactive Protein Total Protein Albumin Triglycerides HDL Cholesterol TSH Urine WBC (Auto) 11/11/17 11/11/17 11/11/17 12:40 12:40 12:40 WBC RBC Hgb Hct MCV MCH MCHC RDW Plt Count Seg Neuts % (Manual) Lymphocytes % (Manual) Seg Neutrophils # Man Lymphocytes # (Manual) Monocytes # (Manual) Basophils # (Manual) PT INR POC ABG pH POC ABG pCO2 POC ABG pO2 VBG pH Sodium 171 H* D Potassium 2.9 L* Chloride 118.2 H Carbon Dioxide 39 H D BUN 28 H Creatinine 1.8 H Glucose 301 H POC Glucose Lactic Acid 11.70 H* Calcium 11.4 H D Phosphorus Magnesium AST ALT Alkaline Phosphatase Total Creatine Kinase CK-MB (CK-2) Troponin T C-Reactive Protein 7.40 H Total Protein Albumin Triglycerides HDL Cholesterol TSH Urine WBC (Auto) 11/11/17 11/11/17 11/11/17 13:58 14:53 15:42 WBC RBC Hgb Hct MCV MCH MCHC RDW Plt Count Seg Neuts % (Manual) Lymphocytes % (Manual) Seg Neutrophils # Man Lymphocytes # (Manual) Monocytes # (Manual) Basophils # (Manual) PT INR POC ABG pH POC ABG pCO2 POC ABG pO2 VBG pH Sodium Potassium Chloride Carbon Dioxide BUN Creatinine Glucose POC Glucose 244 H 273 H 311 H Lactic Acid Calcium Phosphorus Magnesium AST ALT Alkaline Phosphatase Total Creatine Kinase CK-MB (CK-2) Troponin T C-Reactive Protein Total Protein Albumin Triglycerides HDL Cholesterol TSH Urine WBC (Auto) 11/11/17 11/11/17 11/11/17 16:08 17:09 18:41 WBC RBC Hgb Hct MCV MCH MCHC RDW Plt Count Seg Neuts % (Manual) Lymphocytes % (Manual) Seg Neutrophils # Man Lymphocytes # (Manual) Monocytes # (Manual) Basophils # (Manual) PT INR POC ABG pH POC ABG pCO2 POC ABG pO2 VBG pH Sodium 153 H D Potassium 3.3 L Chloride 112.6 H Carbon Dioxide 14 L D BUN 30 H Creatinine 2.1 H Glucose 301 H POC Glucose 337 H 262 H Lactic Acid Calcium 7.8 L D Phosphorus Magnesium AST ALT Alkaline Phosphatase Total Creatine Kinase CK-MB (CK-2) Troponin T C-Reactive Protein Total Protein Albumin Triglycerides HDL Cholesterol TSH Urine WBC (Auto) 11/11/17 11/11/17 11/11/17 19:49 20:14 20:25 WBC RBC Hgb Hct MCV MCH MCHC RDW Plt Count Seg Neuts % (Manual) Lymphocytes % (Manual) Seg Neutrophils # Man Lymphocytes # (Manual) Monocytes # (Manual) Basophils # (Manual) PT INR POC ABG pH POC ABG pCO2 POC ABG pO2 VBG pH Sodium 154 H Potassium 2.7 L* Chloride 110.8 H Carbon Dioxide 20 L BUN 31 H Creatinine 2.4 H Glucose 261 H POC Glucose 281 H 265 H Lactic Acid Calcium 7.9 L Phosphorus Magnesium AST ALT Alkaline Phosphatase Total Creatine Kinase CK-MB (CK-2) Troponin T C-Reactive Protein Total Protein Albumin Triglycerides HDL Cholesterol TSH Urine WBC (Auto) 11/11/17 11/11/17 11/11/17 20:53 21:55 23:17 WBC RBC Hgb Hct MCV MCH MCHC RDW Plt Count Seg Neuts % (Manual) Lymphocytes % (Manual) Seg Neutrophils # Man Lymphocytes # (Manual) Monocytes # (Manual) Basophils # (Manual) PT INR POC ABG pH POC ABG pCO2 POC ABG pO2 VBG pH Sodium Potassium Chloride Carbon Dioxide BUN Creatinine Glucose POC Glucose 274 H 209 H 180 H Lactic Acid Calcium Phosphorus Magnesium AST ALT Alkaline Phosphatase Total Creatine Kinase CK-MB (CK-2) Troponin T C-Reactive Protein Total Protein Albumin Triglycerides HDL Cholesterol TSH Urine WBC (Auto) 11/12/17 11/12/17 11/12/17 00:09 00:26 01:12 WBC RBC Hgb Hct MCV MCH MCHC RDW Plt Count Seg Neuts % (Manual) Lymphocytes % (Manual) Seg Neutrophils # Man Lymphocytes # (Manual) Monocytes # (Manual) Basophils # (Manual) PT INR POC ABG pH POC ABG pCO2 POC ABG pO2 VBG pH Sodium 154 H Potassium Chloride 113.1 H Carbon Dioxide 17 L BUN 34 H Creatinine 2.5 H Glucose 144 H POC Glucose 176 H 148 H Lactic Acid Calcium 7.7 L Phosphorus Magnesium AST ALT Alkaline Phosphatase Total Creatine Kinase CK-MB (CK-2) Troponin T C-Reactive Protein Total Protein Albumin Triglycerides HDL Cholesterol TSH Urine WBC (Auto) 11/12/17 11/12/17 11/12/17 02:05 03:27 04:22 WBC RBC Hgb Hct MCV MCH MCHC RDW Plt Count Seg Neuts % (Manual) Lymphocytes % (Manual) Seg Neutrophils # Man Lymphocytes # (Manual) Monocytes # (Manual) Basophils # (Manual) PT INR POC ABG pH POC ABG pCO2 POC ABG pO2 VBG pH Sodium Potassium Chloride Carbon Dioxide BUN Creatinine Glucose POC Glucose 148 H 156 H 137 H Lactic Acid Calcium Phosphorus Magnesium AST ALT Alkaline Phosphatase Total Creatine Kinase CK-MB (CK-2) Troponin T C-Reactive Protein Total Protein Albumin Triglycerides HDL Cholesterol TSH Urine WBC (Auto) 11/12/17 11/12/17 11/12/17 04:42 05:06 05:34 WBC RBC Hgb Hct MCV MCH MCHC RDW Plt Count Seg Neuts % (Manual) Lymphocytes % (Manual) Seg Neutrophils # Man Lymphocytes # (Manual) Monocytes # (Manual) Basophils # (Manual) PT INR POC ABG pH POC ABG pCO2 POC ABG pO2 56 L VBG pH Sodium 154 H Potassium 3.2 L D Chloride 109.8 H Carbon Dioxide BUN 32 H Creatinine 2.6 H Glucose 157 H POC Glucose 163 H Lactic Acid Calcium 7.3 L Phosphorus Magnesium AST ALT Alkaline Phosphatase Total Creatine Kinase CK-MB (CK-2) Troponin T C-Reactive Protein Total Protein Albumin Triglycerides HDL Cholesterol TSH Urine WBC (Auto) 11/12/17 11/12/17 11/12/17 05:42 06:23 06:36 WBC RBC Hgb Hct MCV MCH MCHC RDW Plt Count Seg Neuts % (Manual) Lymphocytes % (Manual) Seg Neutrophils # Man Lymphocytes # (Manual) Monocytes # (Manual) Basophils # (Manual) PT INR POC ABG pH POC ABG pCO2 POC ABG pO2 VBG pH Sodium Potassium Chloride Carbon Dioxide BUN Creatinine Glucose POC Glucose 166 H 171 H 181 H Lactic Acid Calcium Phosphorus Magnesium AST ALT Alkaline Phosphatase Total Creatine Kinase CK-MB (CK-2) Troponin T C-Reactive Protein Total Protein Albumin Triglycerides HDL Cholesterol TSH Urine WBC (Auto) 11/12/17 11/12/17 11/12/17 07:07 08:16 09:10 WBC RBC Hgb Hct MCV MCH MCHC RDW Plt Count Seg Neuts % (Manual) Lymphocytes % (Manual) Seg Neutrophils # Man Lymphocytes # (Manual) Monocytes # (Manual) Basophils # (Manual) PT INR POC ABG pH POC ABG pCO2 POC ABG pO2 VBG pH Sodium Potassium Chloride Carbon Dioxide BUN Creatinine Glucose POC Glucose 170 H 171 H 170 H Lactic Acid Calcium Phosphorus Magnesium AST ALT Alkaline Phosphatase Total Creatine Kinase CK-MB (CK-2) Troponin T C-Reactive Protein Total Protein Albumin Triglycerides HDL Cholesterol TSH Urine WBC (Auto) 11/12/17 11/12/17 11/12/17 11:12 12:13 12:13 WBC RBC Hgb Hct MCV MCH MCHC RDW Plt Count Seg Neuts % (Manual) Lymphocytes % (Manual) Seg Neutrophils # Man Lymphocytes # (Manual) Monocytes # (Manual) Basophils # (Manual) PT INR POC ABG pH 7.316 L POC ABG pCO2 57.4 H POC ABG pO2 46 L VBG pH Sodium Potassium Chloride Carbon Dioxide BUN Creatinine Glucose POC Glucose 145 H 123 H Lactic Acid Calcium Phosphorus Magnesium AST ALT Alkaline Phosphatase Total Creatine Kinase CK-MB (CK-2) Troponin T C-Reactive Protein Total Protein Albumin Triglycerides HDL Cholesterol TSH Urine WBC (Auto) 11/12/17 11/12/17 11/12/17 14:52 18:05 18:05 WBC 29.0 H RBC 3.15 L Hgb Hct 29.4 L D MCV MCH MCHC 35 H RDW Plt Count 115 L Seg Neuts % (Manual) 90.0 H Lymphocytes % (Manual) 6.0 L Seg Neutrophils # Man 26.1 H Lymphocytes # (Manual) Monocytes # (Manual) 1.2 H Basophils # (Manual) PT INR POC ABG pH POC ABG pCO2 POC ABG pO2 VBG pH Sodium 148 H Potassium Chloride Carbon Dioxide BUN 34 H Creatinine 2.9 H Glucose 147 H POC Glucose 139 H Lactic Acid Calcium 6.6 L Phosphorus Magnesium AST ALT Alkaline Phosphatase Total Creatine Kinase CK-MB (CK-2) Troponin T C-Reactive Protein Total Protein Albumin Triglycerides HDL Cholesterol TSH Urine WBC (Auto) 11/12/17 11/12/17 11/12/17 18:19 18:23 18:45 WBC RBC Hgb Hct MCV MCH MCHC RDW Plt Count Seg Neuts % (Manual) Lymphocytes % (Manual) Seg Neutrophils # Man Lymphocytes # (Manual) Monocytes # (Manual) Basophils # (Manual) PT INR POC ABG pH 7.248 L 7.253 L POC ABG pCO2 61.4 H 58.2 H POC ABG pO2 24 L 56 L VBG pH Sodium Potassium Chloride Carbon Dioxide BUN Creatinine Glucose POC Glucose 154 H Lactic Acid Calcium Phosphorus Magnesium AST ALT Alkaline Phosphatase Total Creatine Kinase CK-MB (CK-2) Troponin T C-Reactive Protein Total Protein Albumin Triglycerides HDL Cholesterol TSH Urine WBC (Auto) 11/12/17 11/12/17 11/12/17 19:08 20:12 21:14 WBC RBC Hgb Hct MCV MCH MCHC RDW Plt Count Seg Neuts % (Manual) Lymphocytes % (Manual) Seg Neutrophils # Man Lymphocytes # (Manual) Monocytes # (Manual) Basophils # (Manual) PT INR POC ABG pH POC ABG pCO2 POC ABG pO2 VBG pH Sodium Potassium Chloride Carbon Dioxide BUN Creatinine Glucose POC Glucose 154 H 155 H 130 H Lactic Acid Calcium Phosphorus Magnesium AST ALT Alkaline Phosphatase Total Creatine Kinase CK-MB (CK-2) Troponin T C-Reactive Protein Total Protein Albumin Triglycerides HDL Cholesterol TSH Urine WBC (Auto) 11/12/17 11/12/17 11/13/17 21:30 22:08 01:17 WBC RBC Hgb Hct MCV MCH MCHC RDW Plt Count Seg Neuts % (Manual) Lymphocytes % (Manual) Seg Neutrophils # Man Lymphocytes # (Manual) Monocytes # (Manual) Basophils # (Manual) PT INR POC ABG pH 7.220 L POC ABG pCO2 57.4 H POC ABG pO2 50 L VBG pH Sodium 146 H Potassium Chloride Carbon Dioxide BUN 35 H Creatinine 3.2 H Glucose 120 H POC Glucose 108 H Lactic Acid Calcium 6.3 L Phosphorus Magnesium AST ALT Alkaline Phosphatase Total Creatine Kinase CK-MB (CK-2) Troponin T C-Reactive Protein Total Protein Albumin Triglycerides HDL Cholesterol TSH Urine WBC (Auto) 11/13/17 11/13/17 11/13/17 01:30 01:33 03:31 WBC RBC Hgb Hct MCV MCH MCHC RDW Plt Count Seg Neuts % (Manual) Lymphocytes % (Manual) Seg Neutrophils # Man Lymphocytes # (Manual) Monocytes # (Manual) Basophils # (Manual) PT INR POC ABG pH POC ABG pCO2 POC ABG pO2 VBG pH Sodium 146 H Potassium Chloride Carbon Dioxide BUN 36 H Creatinine 3.4 H Glucose 143 H POC Glucose 117 H 123 H Lactic Acid Calcium 6.0 L Phosphorus Magnesium AST ALT Alkaline Phosphatase Total Creatine Kinase CK-MB (CK-2) Troponin T C-Reactive Protein Total Protein Albumin Triglycerides HDL Cholesterol TSH Urine WBC (Auto) 11/13/17 11/13/17 11/13/17 04:25 05:14 06:00 WBC RBC Hgb Hct MCV MCH MCHC RDW Plt Count Seg Neuts % (Manual) Lymphocytes % (Manual) Seg Neutrophils # Man Lymphocytes # (Manual) Monocytes # (Manual) Basophils # (Manual) PT INR POC ABG pH POC ABG pCO2 POC ABG pO2 VBG pH Sodium Potassium Chloride Carbon Dioxide BUN 39 H Creatinine 3.8 H Glucose 182 H POC Glucose 161 H 163 H Lactic Acid Calcium 6.6 L Phosphorus 4.90 H Magnesium 1.20 L AST ALT Alkaline Phosphatase Total Creatine Kinase CK-MB (CK-2) Troponin T C-Reactive Protein Total Protein Albumin Triglycerides HDL Cholesterol TSH Urine WBC (Auto) 11/13/17 11/13/17 11/13/17 06:00 06:07 06:24 WBC 32.3 H RBC 3.40 L Hgb Hct MCV MCH MCHC RDW Plt Count 99 L Seg Neuts % (Manual) Lymphocytes % (Manual) Seg Neutrophils # Man Lymphocytes # (Manual) Monocytes # (Manual) Basophils # (Manual) PT INR POC ABG pH 7.199 L POC ABG pCO2 58.3 H POC ABG pO2 70 L VBG pH Sodium Potassium Chloride Carbon Dioxide BUN Creatinine Glucose POC Glucose 171 H Lactic Acid Calcium Phosphorus Magnesium AST ALT Alkaline Phosphatase Total Creatine Kinase CK-MB (CK-2) Troponin T C-Reactive Protein Total Protein Albumin Triglycerides HDL Cholesterol TSH Urine WBC (Auto) 11/13/17 11/13/17 11/13/17 07:42 08:55 09:25 WBC RBC Hgb Hct MCV MCH MCHC RDW Plt Count Seg Neuts % (Manual) Lymphocytes % (Manual) Seg Neutrophils # Man Lymphocytes # (Manual) Monocytes # (Manual) Basophils # (Manual) PT INR POC ABG pH POC ABG pCO2 POC ABG pO2 VBG pH Sodium Potassium Chloride Carbon Dioxide BUN Creatinine Glucose POC Glucose 132 H 143 H 123 H Lactic Acid Calcium Phosphorus Magnesium AST ALT Alkaline Phosphatase Total Creatine Kinase CK-MB (CK-2) Troponin T C-Reactive Protein Total Protein Albumin Triglycerides HDL Cholesterol TSH Urine WBC (Auto) 11/13/17 11/13/17 11/13/17 10:01 10:30 11:06 WBC RBC Hgb Hct MCV MCH MCHC RDW Plt Count Seg Neuts % (Manual) Lymphocytes % (Manual) Seg Neutrophils # Man Lymphocytes # (Manual) Monocytes # (Manual) Basophils # (Manual) PT INR POC ABG pH POC ABG pCO2 POC ABG pO2 VBG pH Sodium Potassium Chloride Carbon Dioxide BUN 41 H Creatinine 4.0 H Glucose 127 H POC Glucose 122 H 129 H Lactic Acid Calcium 6.6 L Phosphorus Magnesium AST ALT Alkaline Phosphatase Total Creatine Kinase CK-MB (CK-2) Troponin T C-Reactive Protein Total Protein Albumin Triglycerides HDL Cholesterol TSH Urine WBC (Auto) 11/13/17 11/13/17 11/13/17 12:01 12:08 14:59 WBC RBC Hgb Hct MCV MCH MCHC RDW Plt Count Seg Neuts % (Manual) Lymphocytes % (Manual) Seg Neutrophils # Man Lymphocytes # (Manual) Monocytes # (Manual) Basophils # (Manual) PT INR POC ABG pH 7.307 L POC ABG pCO2 52.9 H POC ABG pO2 VBG pH Sodium Potassium Chloride Carbon Dioxide BUN Creatinine Glucose POC Glucose 122 H 112 H Lactic Acid Calcium Phosphorus Magnesium AST ALT Alkaline Phosphatase Total Creatine Kinase CK-MB (CK-2) Troponin T C-Reactive Protein Total Protein Albumin Triglycerides HDL Cholesterol TSH Urine WBC (Auto) 11/13/17 11/13/17 11/13/17 16:15 17:58 19:08 WBC RBC Hgb Hct MCV MCH MCHC RDW Plt Count Seg Neuts % (Manual) Lymphocytes % (Manual) Seg Neutrophils # Man Lymphocytes # (Manual) Monocytes # (Manual) Basophils # (Manual) PT INR POC ABG pH POC ABG pCO2 POC ABG pO2 VBG pH Sodium Potassium 5.1 H D Chloride Carbon Dioxide BUN 44 H Creatinine 4.3 H Glucose 117 H POC Glucose 128 H 110 H Lactic Acid Calcium 7.0 L Phosphorus Magnesium AST ALT Alkaline Phosphatase Total Creatine Kinase CK-MB (CK-2) Troponin T C-Reactive Protein Total Protein Albumin Triglycerides HDL Cholesterol TSH Urine WBC (Auto) 11/13/17 11/13/17 11/13/17 19:59 20:22 21:05 WBC RBC Hgb Hct MCV MCH MCHC RDW Plt Count Seg Neuts % (Manual) Lymphocytes % (Manual) Seg Neutrophils # Man Lymphocytes # (Manual) Monocytes # (Manual) Basophils # (Manual) PT INR POC ABG pH POC ABG pCO2 POC ABG pO2 VBG pH Sodium Potassium Chloride Carbon Dioxide BUN 48 H Creatinine 4.5 H Glucose 181 H POC Glucose 180 H 134 H Lactic Acid Calcium 7.0 L Phosphorus Magnesium AST ALT Alkaline Phosphatase Total Creatine Kinase CK-MB (CK-2) Troponin T C-Reactive Protein Total Protein Albumin Triglycerides HDL Cholesterol TSH Urine WBC (Auto) 11/13/17 11/13/17 11/14/17 22:04 23:08 00:08 WBC RBC Hgb Hct MCV MCH MCHC RDW Plt Count Seg Neuts % (Manual) Lymphocytes % (Manual) Seg Neutrophils # Man Lymphocytes # (Manual) Monocytes # (Manual) Basophils # (Manual) PT INR POC ABG pH POC ABG pCO2 POC ABG pO2 VBG pH Sodium Potassium Chloride Carbon Dioxide BUN Creatinine Glucose POC Glucose 135 H 143 H 121 H Lactic Acid Calcium Phosphorus Magnesium AST ALT Alkaline Phosphatase Total Creatine Kinase CK-MB (CK-2) Troponin T C-Reactive Protein Total Protein Albumin Triglycerides HDL Cholesterol TSH Urine WBC (Auto) 11/14/17 11/14/17 11/14/17 00:37 01:07 01:27 WBC RBC Hgb Hct MCV MCH MCHC RDW Plt Count Seg Neuts % (Manual) Lymphocytes % (Manual) Seg Neutrophils # Man Lymphocytes # (Manual) Monocytes # (Manual) Basophils # (Manual) PT INR POC ABG pH 7.308 L POC ABG pCO2 POC ABG pO2 161 H VBG pH Sodium Potassium 5.2 H Chloride Carbon Dioxide BUN 49 H Creatinine 4.6 H Glucose 123 H POC Glucose 106 H Lactic Acid Calcium 6.5 L Phosphorus Magnesium AST ALT Alkaline Phosphatase Total Creatine Kinase CK-MB (CK-2) Troponin T C-Reactive Protein Total Protein Albumin Triglycerides HDL Cholesterol TSH Urine WBC (Auto) 11/14/17 11/14/17 11/14/17 02:20 03:09 04:00 WBC RBC Hgb Hct MCV MCH MCHC RDW Plt Count Seg Neuts % (Manual) Lymphocytes % (Manual) Seg Neutrophils # Man Lymphocytes # (Manual) Monocytes # (Manual) Basophils # (Manual) PT INR POC ABG pH POC ABG pCO2 POC ABG pO2 VBG pH Sodium Potassium 5.5 H Chloride Carbon Dioxide BUN 51 H Creatinine 4.5 H Glucose 181 H POC Glucose 130 H 126 H Lactic Acid Calcium 6.6 L Phosphorus Magnesium AST ALT Alkaline Phosphatase Total Creatine Kinase CK-MB (CK-2) Troponin T C-Reactive Protein Total Protein Albumin Triglycerides HDL Cholesterol TSH Urine WBC (Auto) 11/14/17 11/14/17 11/14/17 04:00 04:36 06:29 WBC 31.6 H RBC 3.39 L Hgb Hct MCV MCH MCHC RDW 15.3 H Plt Count 87 L Seg Neuts % (Manual) Lymphocytes % (Manual) Seg Neutrophils # Man Lymphocytes # (Manual) Monocytes # (Manual) Basophils # (Manual) PT INR POC ABG pH POC ABG pCO2 POC ABG pO2 VBG pH Sodium Potassium Chloride Carbon Dioxide BUN Creatinine Glucose POC Glucose 135 H 166 H Lactic Acid Calcium Phosphorus Magnesium AST ALT Alkaline Phosphatase Total Creatine Kinase CK-MB (CK-2) Troponin T C-Reactive Protein Total Protein Albumin Triglycerides HDL Cholesterol TSH Urine WBC (Auto) 11/14/17 11/14/17 11/14/17 12:02 12:45 12:45 WBC RBC Hgb Hct MCV MCH MCHC RDW Plt Count Seg Neuts % (Manual) Lymphocytes % (Manual) Seg Neutrophils # Man Lymphocytes # (Manual) Monocytes # (Manual) Basophils # (Manual) PT 20.8 H INR 1.68 H POC ABG pH POC ABG pCO2 POC ABG pO2 VBG pH Sodium Potassium 5.5 H Chloride Carbon Dioxide 19 L BUN 58 H Creatinine 4.8 H Glucose 313 H POC Glucose 222 H Lactic Acid Calcium 6.4 L Phosphorus Magnesium AST ALT Alkaline Phosphatase Total Creatine Kinase CK-MB (CK-2) Troponin T C-Reactive Protein Total Protein Albumin Triglycerides HDL Cholesterol TSH Urine WBC (Auto) 11/14/17 11/14/17 11/14/17 16:34 18:12 23:15 WBC RBC Hgb Hct MCV MCH MCHC RDW Plt Count Seg Neuts % (Manual) Lymphocytes % (Manual) Seg Neutrophils # Man Lymphocytes # (Manual) Monocytes # (Manual) Basophils # (Manual) PT INR POC ABG pH POC ABG pCO2 POC ABG pO2 VBG pH Sodium Potassium Chloride Carbon Dioxide 17 L BUN 63 H Creatinine 5.1 H Glucose 368 H POC Glucose 381 H 434 H Lactic Acid Calcium 6.4 L Phosphorus Magnesium AST ALT Alkaline Phosphatase Total Creatine Kinase CK-MB (CK-2) Troponin T C-Reactive Protein Total Protein Albumin Triglycerides HDL Cholesterol TSH Urine WBC (Auto) 11/14/17 11/15/17 11/15/17 Unknown 00:51 04:23 WBC RBC Hgb Hct MCV MCH MCHC RDW Plt Count Seg Neuts % (Manual) Lymphocytes % (Manual) Seg Neutrophils # Man Lymphocytes # (Manual) Monocytes # (Manual) Basophils # (Manual) PT INR POC ABG pH 7.287 L POC ABG pCO2 POC ABG pO2 141 H VBG pH Sodium Potassium Chloride Carbon Dioxide BUN Creatinine Glucose POC Glucose 415 H Lactic Acid 2.80 H* Calcium Phosphorus Magnesium AST ALT Alkaline Phosphatase Total Creatine Kinase CK-MB (CK-2) Troponin T C-Reactive Protein Total Protein Albumin Triglycerides HDL Cholesterol TSH Urine WBC (Auto) 11/15/17 11/15/17 11/15/17 05:00 05:43 10:00 WBC 12.0 H RBC 2.23 L Hgb 7.2 L D Hct 21.7 L D MCV MCH MCHC RDW Plt Count 64 L Seg Neuts % (Manual) 79.0 H Lymphocytes % (Manual) 4.0 L Seg Neutrophils # Man 9.5 H Lymphocytes # (Manual) 0.5 L Monocytes # (Manual) Basophils # (Manual) PT INR POC ABG pH POC ABG pCO2 POC ABG pO2 VBG pH Sodium Potassium Chloride Carbon Dioxide 18 L BUN 73 H Creatinine 5.3 H Glucose 461 H POC Glucose 416 H Lactic Acid Calcium 6.7 L Phosphorus Magnesium AST ALT Alkaline Phosphatase Total Creatine Kinase CK-MB (CK-2) Troponin T C-Reactive Protein Total Protein Albumin Triglycerides HDL Cholesterol TSH Urine WBC (Auto) 11/15/17 11/15/17 11/15/17 10:00 12:24 18:42 WBC RBC Hgb Hct MCV MCH MCHC RDW Plt Count Seg Neuts % (Manual) Lymphocytes % (Manual) Seg Neutrophils # Man Lymphocytes # (Manual) Monocytes # (Manual) Basophils # (Manual) PT INR POC ABG pH POC ABG pCO2 POC ABG pO2 VBG pH Sodium Potassium Chloride Carbon Dioxide 21 L BUN 76 H Creatinine 5.7 H Glucose 386 H POC Glucose 374 H 343 H Lactic Acid Calcium 6.9 L Phosphorus Magnesium AST ALT Alkaline Phosphatase Total Creatine Kinase CK-MB (CK-2) Troponin T C-Reactive Protein Total Protein Albumin Triglycerides HDL Cholesterol TSH Urine WBC (Auto) 11/16/17 11/16/17 11/16/17 00:00 04:19 04:40 WBC RBC 2.60 L Hgb 8.5 L Hct 24.4 L MCV MCH 33 H MCHC 35 H RDW Plt Count 65 L Seg Neuts % (Manual) 92.0 H Lymphocytes % (Manual) 2.0 L Seg Neutrophils # Man 10.0 H Lymphocytes # (Manual) 0.2 L Monocytes # (Manual) Basophils # (Manual) PT INR POC ABG pH POC ABG pCO2 POC ABG pO2 66 L VBG pH Sodium Potassium Chloride Carbon Dioxide BUN Creatinine Glucose POC Glucose 205 H Lactic Acid Calcium Phosphorus Magnesium AST ALT Alkaline Phosphatase Total Creatine Kinase CK-MB (CK-2) Troponin T C-Reactive Protein Total Protein Albumin Triglycerides HDL Cholesterol TSH Urine WBC (Auto) 11/16/17 11/16/17 11/16/17 04:40 05:14 14:08 WBC RBC Hgb Hct MCV MCH MCHC RDW Plt Count Seg Neuts % (Manual) Lymphocytes % (Manual) Seg Neutrophils # Man Lymphocytes # (Manual) Monocytes # (Manual) Basophils # (Manual) PT INR POC ABG pH POC ABG pCO2 POC ABG pO2 VBG pH Sodium Potassium 3.2 L Chloride Carbon Dioxide BUN 48 H Creatinine 3.7 H Glucose 142 H POC Glucose 139 H 201 H Lactic Acid Calcium 8.0 L D Phosphorus Magnesium AST 2275 H ALT 647 H Alkaline Phosphatase 268 H Total Creatine Kinase 363 H CK-MB (CK-2) Troponin T C-Reactive Protein Total Protein 3.9 L Albumin 2.1 L Triglycerides HDL Cholesterol TSH Urine WBC (Auto) 11/16/17 11/16/17 11/17/17 18:51 23:48 04:16 WBC RBC Hgb Hct MCV MCH MCHC RDW Plt Count Seg Neuts % (Manual) Lymphocytes % (Manual) Seg Neutrophils # Man Lymphocytes # (Manual) Monocytes # (Manual) Basophils # (Manual) PT INR POC ABG pH 7.487 H POC ABG pCO2 POC ABG pO2 158 H VBG pH Sodium Potassium Chloride Carbon Dioxide BUN Creatinine Glucose POC Glucose 130 H 138 H Lactic Acid Calcium Phosphorus Magnesium AST ALT Alkaline Phosphatase Total Creatine Kinase CK-MB (CK-2) Troponin T C-Reactive Protein Total Protein Albumin Triglycerides HDL Cholesterol TSH Urine WBC (Auto) 11/17/17 11/17/17 11/17/17 05:15 05:15 05:15 WBC RBC 2.58 L Hgb 8.3 L Hct 24.4 L MCV MCH MCHC RDW Plt Count 49 L Seg Neuts % (Manual) 83.0 H Lymphocytes % (Manual) 4.0 L Seg Neutrophils # Man Lymphocytes # (Manual) 0.4 L Monocytes # (Manual) Basophils # (Manual) PT 18.6 H INR 1.46 H POC ABG pH POC ABG pCO2 POC ABG pO2 VBG pH Sodium Potassium 3.4 L Chloride Carbon Dioxide BUN 70 H Creatinine 4.6 H Glucose 107 H POC Glucose Lactic Acid Calcium 7.5 L Phosphorus Magnesium AST 2722 H ALT 504 H Alkaline Phosphatase 278 H Total Creatine Kinase CK-MB (CK-2) Troponin T C-Reactive Protein Total Protein 3.8 L Albumin 2.3 L Triglycerides HDL Cholesterol TSH Urine WBC (Auto) 11/17/17 11/17/17 11/17/17 06:07 11:28 18:08 WBC RBC Hgb Hct MCV MCH MCHC RDW Plt Count Seg Neuts % (Manual) Lymphocytes % (Manual) Seg Neutrophils # Man Lymphocytes # (Manual) Monocytes # (Manual) Basophils # (Manual) PT INR POC ABG pH POC ABG pCO2 POC ABG pO2 VBG pH Sodium Potassium Chloride Carbon Dioxide BUN Creatinine Glucose POC Glucose 126 H 195 H 256 H Lactic Acid Calcium Phosphorus Magnesium AST ALT Alkaline Phosphatase Total Creatine Kinase CK-MB (CK-2) Troponin T C-Reactive Protein Total Protein Albumin Triglycerides HDL Cholesterol TSH Urine WBC (Auto) 11/18/17 11/18/17 11/18/17 05:30 11:58 17:11 WBC RBC Hgb Hct MCV MCH MCHC RDW Plt Count Seg Neuts % (Manual) Lymphocytes % (Manual) Seg Neutrophils # Man Lymphocytes # (Manual) Monocytes # (Manual) Basophils # (Manual) PT INR POC ABG pH POC ABG pCO2 POC ABG pO2 VBG pH Sodium Potassium Chloride Carbon Dioxide BUN 63 H Creatinine 3.6 H Glucose 299 H POC Glucose 377 H 294 H Lactic Acid Calcium 7.6 L Phosphorus Magnesium AST 1870 H ALT 344 H Alkaline Phosphatase 264 H Total Creatine Kinase CK-MB (CK-2) Troponin T C-Reactive Protein Total Protein 3.7 L Albumin 1.9 L Triglycerides HDL Cholesterol TSH Urine WBC (Auto) 11/18/17 11/19/17 11/19/17 23:20 00:17 05:48 WBC RBC Hgb Hct MCV MCH MCHC RDW Plt Count Seg Neuts % (Manual) Lymphocytes % (Manual) Seg Neutrophils # Man Lymphocytes # (Manual) Monocytes # (Manual) Basophils # (Manual) PT INR POC ABG pH POC ABG pCO2 POC ABG pO2 VBG pH Sodium Potassium Chloride Carbon Dioxide BUN Creatinine Glucose POC Glucose 274 H 247 H 237 H Lactic Acid Calcium Phosphorus Magnesium AST ALT Alkaline Phosphatase Total Creatine Kinase CK-MB (CK-2) Troponin T C-Reactive Protein Total Protein Albumin Triglycerides HDL Cholesterol TSH Urine WBC (Auto) 11/19/17 11/19/17 06:47 06:47 WBC 23.5 H RBC 3.10 L Hgb 10.0 L Hct 29.5 L MCV MCH MCHC RDW Plt Count 118 L D Seg Neuts % (Manual) Lymphocytes % (Manual) Seg Neutrophils # Man Lymphocytes # (Manual) Monocytes # (Manual) Basophils # (Manual) PT INR POC ABG pH POC ABG pCO2 POC ABG pO2 VBG pH Sodium Potassium Chloride Carbon Dioxide 21 L BUN 89 H Creatinine 4.5 H Glucose 246 H POC Glucose Lactic Acid Calcium 7.5 L Phosphorus Magnesium AST 1732 H ALT 191 H Alkaline Phosphatase 262 H Total Creatine Kinase CK-MB (CK-2) Troponin T C-Reactive Protein Total Protein 3.9 L Albumin 1.7 L Triglycerides HDL Cholesterol TSH Urine WBC (Auto) Allied health notes reviewed: RT
--- NOTE | 2017-11-19 13:05 | Progress Note ---
Assessment and Plan Assessment: 1) Severe Sepsis with septic shock/hypolemic shock: off levophed, noted leukocytosis worsening. No fever. Etiology most likely due to pneumonia +/- right submandibular abscess +/- DKA/N/V. -blood cx neg -TTE neg 2) Bilateral pneumonia - likely aspiration pneumonia -tracheal asp +MSSA/Strep group B -CT showed +kathleen large pleural effusions and kathleen patchy opacities -BAL no growth 3) DKA-better 4) Acute encephalopathy ? anoxic brain injury- CT showed lack of montoya-white differentitation 5) Acute resp failure -CT showed +kathleen large pleural effusions and kathleen patchy opacities 6) Hyponatremia-resolved 7) LOC on HD 8) S/P VT cardiac arrest 9) Right submandibular abscess ? Actinomycosis of the Jaw? 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 Nat Reeves MD Infectious Diseases Specialist [facility] ([facility] M [phone] O [phone] Subjective Date of service: 11/19/17 Principal diagnosis: s/p cardiac arrest Interval history: Remains on the vent, non responsive, no fever. Off levophed Microbiology: Blood cultures: 11/10 neg 11/11 neg Urine cultures: 11/10 neg Respiratory cultures: 11/11 MSSA and Beta hem Strep B Wound cultures: 11/13 Anushka albicans Current Antimicrobials: Clinda 11/12 cefazolin 11/14 fluconazole 11/16 Prior Antimicrobials: Vancomycin Zosyn Penicillin Objective - Constitutional Vitals: Vital Signs Temp Pulse Resp BP Pulse Ox 98.0 F 64 26 H 105/71 97 11/19/17 12:00 11/19/17 12:45 11/19/17 11:00 11/19/17 12:45 11/19/17 12:31 Temperature -Last 24 Hours Temperature 98.0 F Temperature 98.2 F Temperature 98.2 F Temperature 98.2 F Temperature 98.9 F Temperature 97.3 F Temperature 98.4 F Temperature 98.0 F - Labs CBC & Chem 7: 11/19/17 06:47 11/19/17 06:47 Labs: Abnormal lab results 11/18/17 11/18/17 11/19/17 Range/Units 17:11 23:20 00:17 WBC (4.5-11.0) K/mm3 RBC (3.65-5.03) M/mm3 Hgb (10.1-14.3) gm/dl Hct (30.3-42.9) % Plt Count (140-440) K/mm3 Carbon Dioxide (22-30) mmol/L BUN (7-17) mg/dL Creatinine (0.7-1.2) mg/dL Glucose (65-100) mg/dL POC Glucose 294 H 274 H 247 H (70-105) Calcium (8.4-10.2) mg/dL AST (5-40) units/L ALT (7-56) units/L Alkaline Phosphatase (35-129) units/L Total Protein (6.3-8.2) g/dL Albumin (3.9-5) g/dL 11/19/17 11/19/17 11/19/17 Range/Units 05:48 06:47 06:47 WBC 23.5 H (4.5-11.0) K/mm3 RBC 3.10 L (3.65-5.03) M/mm3 Hgb 10.0 L (10.1-14.3) gm/dl Hct 29.5 L (30.3-42.9) % Plt Count 118 L D (140-440) K/mm3 Carbon Dioxide 21 L (22-30) mmol/L BUN 89 H (7-17) mg/dL Creatinine 4.5 H (0.7-1.2) mg/dL Glucose 246 H (65-100) mg/dL POC Glucose 237 H (70-105) Calcium 7.5 L (8.4-10.2) mg/dL AST 1732 H (5-40) units/L ALT 191 H (7-56) units/L Alkaline Phosphatase 262 H (35-129) units/L Total Protein 3.9 L (6.3-8.2) g/dL Albumin 1.7 L (3.9-5) g/dL
[2017-11-19] MEDS ORDERED: NACL 0.9 (PRIMING MACHINE ONLY DIALYSIS) MC ONE (15:58)
--- NOTE | 2017-11-19 16:54 | Progress Note ---
Assessment and Plan Assessment and plan: Ms. Melendez is a 37 yo woman with history of DM type 2, HTN, Hypothyroidism, Alcohol abuse, Tobacco dependecncy and Medical noncompliance per chart who presented to the ED via EMS after she was found by a family member at home to be extremely lethargic. She was brought to the ED for evaluation and was subsequently diagnosed with DKA, bilateral PNA, septic shock, ARF and hyperkalemia. Upon transfer from ED to CCU, she became unresponsive and developed cardiopulmonary arrest. ACLS protocol was initiated. At one point, she was noted to be in VF and was shocked twice and given several rounds of epinephrine and was initiated on amio gtt. She was intubated and remains intubated. She subsequently had 3 more cardiac arrest/PEA on the same day. Then she was placed on 4 vasopressors to maintain bp/vitals. s/p cardiorespiratory arrest - She was intubated and ACLS protocol was initiated - s/p cardiac arrest X4, 1st time with [facility],then followed by PEA X3 - likely from Severe DKA and severe septic shock - consulted cardiology, s/p amioderone drip - preserved EF on 2d echo, Acute respiratory failure with severe hypoxia - likely b/l PNA with ARDS due to severe DKA and sepsis - scheduled steroid, nebs, on vent with positive pressure ventilation - added paralytics to improve oxygenation - CC following, Bronchoscopy Severe hypothyroidism - TSH >15 on presentation - started on IV Synthroid DKA - Continue insulin drip, BMP every 4 hours - cont on DKA protocol, start on TF severe Septic shock with bilateral pneumonia - Continue to trend lactic acid, continue vancomycin and Zosyn for now, added clindamycin - Patient currently on levophed - Critical care and ID are following Severe metabolic acidosis - due to DKA, cont insulin drip and BMP every 4 hours Acute renal failure, ATN, poa - Continue IV fluid, nephrology consulted - declining renal function and very low urine output Hypernatremia, - renal is following and managing Bilateral pneumonia, poa - Continue antibiotic, MSSA and Group B strept on trach aspirate culture Hyperkalemia, status post Kayexalate Hypokalemia, will cont to replete Acute metabolic Encephalopathy, poa - cont frequent neuro check - ordered CT head but clinically unstable to do DVT prophylaxis, SCD due to severe thrombocytopenia Full code, prognosis guarded Levophed off NOT sedated, not responding very poor urine output, Hemodialysis started via femoral cath Tube feeding for nutrition Adame present SCD on restraints not needed Hemodynamically improved but unfortunately it appears Ms. Melendez suffered seemingly ill-reversible brain damage. Neurology, Dr. Gomez diagnosis with SEVERE anoxic brain injury. EEG reviewed, supsect brain , d/w Dr. Gomez, she will review and d/w Family. Withdrawal tomorrow. History Interval history: Patient was seen and examined. Follow-up on current diagnosis of respiratory failure, pt still intubated and not sedated per Neurology. Imaging, nursing note , chart, labs and old chart reviewed. Discussed with nursing. Hospitalist Physical - Physical exam Narrative exam: GENERAL: well-developed WF, ill appearing, intubated and not sedated HEENT: NCAT, ett in place, ngt in place NECK: Supple. Trachea midline CHEST/LUNGS: good air entry HEART/CARDIOVASCULAR: tachycardic. S1 and S2 positive. ABDOMEN: Abdomen is soft, nontender. +pbs SKIN: There is no rash. Warm and dry. NEURO: does not Follow command. unresponsive MUSCULOSKELETAL: No joint effusion or tenderness. EXTRIMITY: No edema, no cyanosis or clubbing. PSYCH: unresponsive - Constitutional Vitals: Temp Pulse Resp BP Pulse Ox 98.2 F 61 26 H 113/79 97 11/19/17 16:00 11/19/17 14:08 11/19/17 14:08 11/19/17 14:08 11/19/17 14:08 General appearance: Present: other (intubated, nonresponsive) Results - Labs CBC & Chem 7: 11/19/17 06:47 11/19/17 06:47 Labs: Laboratory Last Values WBC 23.5 K/mm3 (4.5-11.0) H 11/19/17 06:47 RBC 3.10 M/mm3 (3.65-5.03) L 11/19/17 06:47 Hgb 10.0 gm/dl (10.1-14.3) L 11/19/17 06:47 Hct 29.5 % (30.3-42.9) L 11/19/17 06:47 MCV 95 fl (79-97) 11/19/17 06:47 MCH 32 pg (28-32) 11/19/17 06:47 MCHC 34 % (30-34) 11/19/17 06:47 RDW 14.8 % (13.2-15.2) 11/19/17 06:47 Plt Count 118 K/mm3 (140-440) L D 11/19/17 06:47 Add Manual Diff Complete 11/17/17 05:15 Total Counted 100 11/17/17 05:15 Seg Neutrophils % Accounts Receivable Analyst 11/17/17 05:15 Seg Neuts % (Manual) 83.0 % (40.0-70.0) H 11/17/17 05:15 Band Neutrophils % 9.0 % 11/17/17 05:15 Lymphocytes % (Manual) 4.0 % (13.4-35.0) L 11/17/17 05:15 Reactive Lymphs % (Man) 0 % 11/17/17 05:15 Monocytes % (Manual) 4.0 % (0.0-7.3) 11/17/17 05:15 Eosinophils % (Manual) 0 % (0.0-4.3) 11/17/17 05:15 Basophils % (Manual) 0 % (0.0-1.8) 11/17/17 05:15 Metamyelocytes % 0 % 11/17/17 05:15 Myelocytes % 0 % 11/17/17 05:15 Promyelocytes % 0 % 11/17/17 05:15 Blast Cells % 0 % 11/17/17 05:15 Nucleated RBC % Not Reportable 11/17/17 05:15 Seg Neutrophils # Man 7.4 K/mm3 (1.8-7.7) 11/17/17 05:15 Band Neutrophils # 0.8 K/mm3 11/17/17 05:15 Lymphocytes # (Manual) 0.4 K/mm3 (1.2-5.4) L 11/17/17 05:15 Abs React Lymphs (Man) 0.0 K/mm3 11/17/17 05:15 Monocytes # (Manual) 0.4 K/mm3 (0.0-0.8) 11/17/17 05:15 Eosinophils # (Manual) 0.0 K/mm3 (0.0-0.4) 11/17/17 05:15 Basophils # (Manual) 0.0 K/mm3 (0.0-0.1) 11/17/17 05:15 Metamyelocytes # 0.0 K/mm3 11/17/17 05:15 Myelocytes # 0.0 K/mm3 11/17/17 05:15 Promyelocytes # 0.0 K/mm3 11/17/17 05:15 Blast Cells # 0.0 K/mm3 11/17/17 05:15 WBC Morphology Not Reportable 11/17/17 05:15 Hypersegmented Neuts Not Reportable 11/17/17 05:15 Hyposegmented Neuts Not Reportable 11/17/17 05:15 Hypogranular Neuts Not Reportable 11/17/17 05:15 Smudge Cells Not Reportable 11/17/17 05:15 Toxic Granulation Not Reportable 11/17/17 05:15 Toxic Vacuolation Not Reportable 11/17/17 05:15 Dohle Bodies Not Reportable 11/17/17 05:15 Pelger-Huet Anomaly Not Reportable 11/17/17 05:15 Cassandra Rods Not Reportable 11/17/17 05:15 Platelet Estimate Consistent w auto 11/17/17 05:15 Clumped Platelets Not Reportable 11/17/17 05:15 Plt Clumps, EDTA Not Reportable 11/17/17 05:15 Large Platelets Not Reportable 11/17/17 05:15 Giant Platelets Not Reportable 11/17/17 05:15 Platelet Satelliting Not Reportable 11/17/17 05:15 Plt Morphology Comment Not Reportable 11/17/17 05:15 RBC Morphology Normal 11/17/17 05:15 Dimorphic RBCs Not Reportable 11/17/17 05:15 Polychromasia Not Reportable 11/17/17 05:15 Hypochromasia Not Reportable 11/17/17 05:15 Poikilocytosis Not Reportable 11/17/17 05:15 Anisocytosis Not Reportable 11/17/17 05:15 Microcytosis Not Reportable 11/17/17 05:15 Macrocytosis Not Reportable 11/17/17 05:15 Spherocytes Not Reportable 11/17/17 05:15 Pappenheimer Bodies Not Reportable 11/17/17 05:15 Sickle Cells Not Reportable 11/17/17 05:15 Target Cells Not Reportable 11/17/17 05:15 Tear Drop Cells Not Reportable 11/17/17 05:15 Ovalocytes Not Reportable 11/17/17 05:15 Helmet Cells Not Reportable 11/17/17 05:15 [place] Bodies Not Reportable 11/17/17 05:15 [place] Rings Not Reportable 11/17/17 05:15 Crowley Cells Not Reportable 11/17/17 05:15 Bite Cells Not Reportable 11/17/17 05:15 Crenated Cell Not Reportable 11/17/17 05:15 Elliptocytes Not Reportable 11/17/17 05:15 Acanthocytes (Spur) Not Reportable 11/17/17 05:15 Rouleaux Not Reportable 11/17/17 05:15 Hemoglobin C Crystals Not Reportable 11/17/17 05:15 Schistocytes Not Reportable 11/17/17 05:15 Malaria parasites Not Reportable 11/17/17 05:15 Munir Bodies Not Reportable 11/17/17 05:15 Hem Pathologist Commnt No 11/17/17 05:15 PT 18.6 Sec. (12.2-14.9) H 11/17/17 05:15 INR 1.46 (0.87-1.13) H 11/17/17 05:15 POC ABG pH 7.429 (7.35-7.45) 11/19/17 03:52 POC ABG pCO2 38.5 (35-45) 11/19/17 03:52 POC ABG pO2 94 (80-105) 11/19/17 03:52 POC ABG HCO3 25.5 11/19/17 03:52 POC ABG Total CO2 27 11/19/17 03:52 POC ABG O2 Sat 98 11/19/17 03:52 POC ABG Base Excess 1 11/19/17 03:52 VBG pH 6.881 (7.320-7.420) L* 11/11/17 00:01 FiO2 55 % 11/19/17 03:52 Sodium 137 mmol/L (137-145) 11/19/17 06:47 Potassium 4.5 mmol/L (3.6-5.0) 11/19/17 06:47 Chloride 99.6 mmol/L (98-107) 11/19/17 06:47 Carbon Dioxide 21 mmol/L (22-30) L 11/19/17 06:47 Anion Gap 21 mmol/L 11/19/17 06:47 BUN 89 mg/dL (7-17) H 11/19/17 06:47 Creatinine 4.5 mg/dL (0.7-1.2) H 11/19/17 06:47 Estimated GFR 11 ml/min 11/19/17 06:47 BUN/Creatinine Ratio 20 % 11/19/17 06:47 Glucose 246 mg/dL (65-100) H 11/19/17 06:47 POC Glucose 237 (70-105) H 11/19/17 05:48 Lactic Acid 2.80 mmol/L (0.7-2.0) H* 11/14/17 Unknown Calcium 7.5 mg/dL (8.4-10.2) L 11/19/17 06:47 Phosphorus 4.90 mg/dL (2.5-4.5) H 11/13/17 06:00 Magnesium 1.20 mg/dL (1.7-2.3) L 11/13/17 06:00 Total Bilirubin 0.20 mg/dL (0.1-1.2) 11/19/17 06:47 AST 1732 units/L (5-40) H 11/19/17 06:47 ALT 191 units/L (7-56) H 11/19/17 06:47 Alkaline Phosphatase 262 units/L (35-129) H 11/19/17 06:47 Total Creatine Kinase 363 units/L (30-135) H 11/16/17 04:40 CK-MB (CK-2) 31.9 ng/mL (0.0-4.0) H 11/11/17 10:45 CK-MB (CK-2) Rel Index 3.0 (0-4) 11/11/17 10:45 Troponin T 0.041 ng/mL (0.00-0.029) H D 11/11/17 10:45 C-Reactive Protein 7.40 mg/dL (0.00-1.30) H 11/11/17 12:40 Total Protein 3.9 g/dL (6.3-8.2) L 11/19/17 06:47 Albumin 1.7 g/dL (3.9-5) L 11/19/17 06:47 Albumin/Globulin Ratio 0.8 % 11/19/17 06:47 Triglycerides 510 mg/dL (2-149) H 11/11/17 10:45 Cholesterol 170 mg/dL (50-199) 11/11/17 10:45 LDL Cholesterol Direct TNR 11/11/17 10:45 HDL Cholesterol 26 mg/dL (40-59) L 11/11/17 10:45 Cholesterol/HDL Ratio 6.53 % 11/11/17 10:45 TSH 15.990 mlU/mL (0.270-4.200) H 11/10/17 23:15 Urine Color Yellow (Yellow) 11/10/17 Unknown Urine Turbidity Clear (Clear) 11/10/17 Unknown Urine pH 5.0 (5.0-7.0) 11/10/17 Unknown Ur Specific [place] 1.016 (1.003-1.030) 11/10/17 Unknown Urine Protein 30 mg/dl mg/dL (Negative) 11/10/17 Unknown Urine Glucose (UA) >=500 mg/dL (Negative) 11/10/17 Unknown Urine Ketones 80 mg/dL (Negative) 11/10/17 Unknown Urine Blood Mod (Negative) 11/10/17 Unknown Urine Nitrite Neg (Negative) 11/10/17 Unknown Urine Bilirubin Neg (Negative) 11/10/17 Unknown Urine Urobilinogen < 2.0 mg/dL (<2.0) 11/10/17 Unknown Ur Leukocyte Esterase Neg (Negative) 11/10/17 Unknown Urine WBC (Auto) 8.0 /HPF (0.0-6.0) H 11/10/17 Unknown Urine RBC (Auto) 1.0 /HPF (0.0-6.0) 11/10/17 Unknown U Epithel Cells (Auto) < 1.0 /HPF (0-13.0) 11/10/17 Unknown Urine Bacteria (Auto) 1+ /HPF (Negative) 11/10/17 Unknown Urine Mucus Few /HPF 11/10/17 Unknown Random Vancomycin 28.6 ug/mL (0-40.0) 11/14/17 05:25 Urine Opiates Screen Presumptive negative 11/10/17 Unknown Urine Methadone Screen Presumptive negative 11/10/17 Unknown Ur Barbiturates Screen Presumptive negative 11/10/17 Unknown Ur Phencyclidine Scrn Presumptive negative 11/10/17 Unknown Ur Amphetamines Screen Presumptive negative 11/10/17 Unknown U Benzodiazepines Scrn Presumptive negative 11/10/17 Unknown Urine Cocaine Screen Presumptive negative 11/10/17 Unknown U Marijuana (THC) Screen Presumptive negative 11/10/17 Unknown Drugs of Abuse Note Disclamer 11/10/17 Unknown Plasma/Serum Alcohol < 0.01 % (0-0.07) 11/14/17 12:45 Hepatitis A IgM Ab Non-reactive (NonReactive) 11/16/17 05:50 Hep Bs Antigen Non-reactive (Negative) 11/16/17 05:50 Hep B Core IgM Ab Non-reactive (NonReactive) 11/16/17 05:50 Hepatitis C Antibody Non-reactive (NonReactive) 11/16/17 05:50
[2017-11-20] MEDS: CLEOCIN 600 MG/50 mL 600 MG/50 ML BAG IV SCH ×2 (01:21→09:38)
[2017-11-20] MEDS: HumuLIN R SUB-Q SCH ×2 (01:23→05:58)
[2017-11-20] MEDS: SODIUM CHLORIDE FLUSH SYRINGE 10 ML IV SCH ×2 (01:26→09:39)
[2017-11-20] MEDS: SYNTHROID IV SCH (05:58)
[2017-11-20] MEDS: LANTUS SUB-Q SCH (08:54)
--- NOTE | 2017-11-20 09:26 | Progress Note ---
Assessment and Plan Acute hypoxemic respiratory failure.. s/p cardiorespiratory arrest Subcutaneous emphysema( resolved) DKA Severe Sepsis with septic shock Severe metabolic acidosis Acute renal failure requiring HD ARDS Hypernatremia Encephalopathy, metabolic/Anoxic DNAR Prognosis is grave Compassionate extubation at 11am today Subjective Date of service: 11/20/17 Principal diagnosis: s/p cardiac arrest Interval history: 37 y/o female with history of uncontrolled DM, non compliance with diabetes meds , previous admissions due to DKA, gastroparesis; brought to the hospital on 11/10 severely lethargic by her common law at home. Per her , she celebrated her birthday 2 days before admission, she had some drinks with friends. The following day she developed severe nausea, vomiting and abdominal pain. She did not have any cough, SOB or cold symptoms. She did not eat cake or sweets. EMS was called and she had a glucose above 500. In the ED, temp 92, HR 72, R 16, BP 88/31. WBC 39K. Hg 11.5. Plat 469. Sodium 151. Creat 1.8. Glu 541. CXR RLL infiltrate . Intubated in the ER. S/P PEA cardiac arrest Patient is seen today for: Acute hypoxic respiratory, severe sepsis with septic shock, LOC, Acute encephalopathy, s/p cardiac arrest (PEA) Seen and examined. Vitals, labs, medications, chart and imaging reviewed. Oxygenation improved, off vasopressor support Discussed with RT and RN 24 hour events reviewed, no acute overnight events reported Mother came in yesterday and signed all the paperwork for withdrawal of care. The whole family will be in today at 11am for compassionate extubation Objective - Exam Narrative Exam: GENERAL: well-developed WF, ill appearing, intubated and not sedated HEENT: NCAT, ETT, NGT NECK: Supple. Trachea midline CHEST/LUNGS: good air entry bialterally, clear to auscultation HEART/CARDIOVASCULAR: tachycardic. S1 and S2 positive. ABDOMEN: Abdomen is soft, non tender. ND, No hepatospplenomegaly SKIN: There is no rash. Warm and dry. NEURO: Fixed dilated pupils, no cough or gag reflexes. Not witdrawing to painful stimuli MUSCULOSKELETAL: No joint effusion or tenderness. EXTRIMITY: No edema, no cyanosis or clubbing. PSYCH: unresponsive Vital Signs - 12hr 11/19/17 11/19/17 11/19/17 21:30 22:00 22:30 Temperature Pulse Rate 58 L 64 60 Respiratory 26 H 26 H 26 H Rate Blood Pressure 125/86 119/78 116/79 O2 Sat by Pulse 92 93 98 Oximetry 11/19/17 11/19/17 11/20/17 23:00 23:30 00:01 Temperature Pulse Rate 59 L 59 L 59 L Respiratory 26 H 26 H 26 H Rate Blood Pressure 119/82 119/84 121/83 O2 Sat by Pulse 98 93 Oximetry 11/20/17 11/20/17 11/20/17 00:30 01:00 01:30 Temperature Pulse Rate 58 L 58 L 60 Respiratory 26 H 26 H 26 H Rate Blood Pressure 122/88 125/86 127/89 O2 Sat by Pulse 97 97 97 Oximetry 11/20/17 11/20/17 11/20/17 02:00 02:30 03:00 Temperature Pulse Rate 57 L 57 L 57 L Respiratory 26 H 26 H 26 H Rate Blood Pressure 127/89 133/94 141/101 O2 Sat by Pulse 97 97 97 Oximetry 11/20/17 11/20/17 11/20/17 03:30 03:59 04:00 Temperature Pulse Rate 56 L 56 L 56 L Respiratory 26 H 26 H Rate Blood Pressure 138/96 153/104 153/104 O2 Sat by Pulse 98 98 98 Oximetry 11/20/17 11/20/17 11/20/17 04:30 05:00 05:30 Temperature Pulse Rate 57 L 56 L 58 L Respiratory 26 H 26 H 26 H Rate Blood Pressure 137/96 149/103 135/92 O2 Sat by Pulse 98 98 98 Oximetry 11/20/17 11/20/17 11/20/17 06:00 06:30 07:00 Temperature Pulse Rate 58 L 57 L 55 L Respiratory 26 H 26 H 26 H Rate Blood Pressure 160/109 152/101 140/97 O2 Sat by Pulse 97 97 98 Oximetry 11/20/17 11/20/17 07:30 08:00 Temperature 98.2 F Pulse Rate 57 L 55 L Respiratory 26 H Rate Blood Pressure 147/105 145/105 O2 Sat by Pulse 93 97 Oximetry CBC and BMP: 11/19/17 06:47 11/19/17 06:47 ABG, PT/INR, D-dimer: ABG POC ABG pH 7.429 (7.35-7.45) 11/19/17 03:52 POC ABG pCO2 38.5 (35-45) 11/19/17 03:52 POC ABG pO2 94 (80-105) 11/19/17 03:52 POC ABG HCO3 25.5 11/19/17 03:52 POC ABG Total CO2 27 11/19/17 03:52 POC ABG O2 Sat 98 11/19/17 03:52 PT/INR, D-dimer PT 18.6 Sec. (12.2-14.9) H 11/17/17 05:15 INR 1.46 (0.87-1.13) H 11/17/17 05:15 Abnormal lab findings: Abnormal Labs 11/10/17 11/10/17 11/10/17 19:54 20:18 20:18 WBC 39.8 H RBC 3.59 L Hgb Hct MCV 117 H MCH MCHC 27 L RDW Plt Count 469 H Seg Neuts % (Manual) 93.5 H Lymphocytes % (Manual) 3.0 L Seg Neutrophils # Man 37.2 H Lymphocytes # (Manual) Monocytes # (Manual) 1.0 H Basophils # (Manual) 0.2 H PT 18.8 H INR 1.48 H POC ABG pH POC ABG pCO2 POC ABG pO2 VBG pH Sodium Potassium Chloride Carbon Dioxide BUN Creatinine Glucose POC Glucose 488 H Lactic Acid Calcium Phosphorus Magnesium AST ALT Alkaline Phosphatase Total Creatine Kinase CK-MB (CK-2) Troponin T C-Reactive Protein Total Protein Albumin Triglycerides HDL Cholesterol TSH Urine WBC (Auto) 11/10/17 11/10/17 11/10/17 20:18 20:18 20:18 WBC RBC Hgb Hct MCV MCH MCHC RDW Plt Count Seg Neuts % (Manual) Lymphocytes % (Manual) Seg Neutrophils # Man Lymphocytes # (Manual) Monocytes # (Manual) Basophils # (Manual) PT INR POC ABG pH POC ABG pCO2 POC ABG pO2 VBG pH 6.763 L* Sodium 125 L Potassium 7.5 H* Chloride 82.9 L Carbon Dioxide 2 L* BUN 33 H Creatinine 1.8 H Glucose 976 H* POC Glucose Lactic Acid 3.00 H* Calcium 7.6 L Phosphorus Magnesium AST ALT Alkaline Phosphatase Total Creatine Kinase CK-MB (CK-2) Troponin T C-Reactive Protein Total Protein 6.2 L Albumin 3.5 L Triglycerides HDL Cholesterol TSH Urine WBC (Auto) 11/10/17 11/10/17 11/10/17 20:35 20:35 22:07 WBC RBC Hgb Hct MCV MCH MCHC RDW Plt Count Seg Neuts % (Manual) Lymphocytes % (Manual) Seg Neutrophils # Man Lymphocytes # (Manual) Monocytes # (Manual) Basophils # (Manual) PT INR POC ABG pH POC ABG pCO2 POC ABG pO2 VBG pH Sodium 124 L Potassium 7.6 H* Chloride 82.0 L Carbon Dioxide 3 L* BUN 33 H Creatinine 1.8 H Glucose 977 H* POC Glucose 481 H Lactic Acid Calcium 7.8 L Phosphorus 9.40 H Magnesium 2.70 H AST ALT Alkaline Phosphatase Total Creatine Kinase CK-MB (CK-2) Troponin T C-Reactive Protein Total Protein Albumin Triglycerides HDL Cholesterol TSH Urine WBC (Auto) 11/10/17 11/10/17 11/10/17 23:06 23:06 23:15 WBC RBC Hgb Hct MCV MCH MCHC RDW Plt Count Seg Neuts % (Manual) Lymphocytes % (Manual) Seg Neutrophils # Man Lymphocytes # (Manual) Monocytes # (Manual) Basophils # (Manual) PT INR POC ABG pH POC ABG pCO2 POC ABG pO2 VBG pH Sodium 133 L D Potassium 5.6 H D Chloride 97.1 L Carbon Dioxide 3 L* BUN 32 H Creatinine 1.6 H Glucose 664 H* POC Glucose Lactic Acid 2.30 H* Calcium 6.8 L Phosphorus Magnesium AST ALT Alkaline Phosphatase Total Creatine Kinase CK-MB (CK-2) Troponin T C-Reactive Protein Total Protein Albumin Triglycerides HDL Cholesterol TSH 15.990 H Urine WBC (Auto) 11/10/17 11/10/17 11/11/17 23:29 Unknown 00:01 WBC RBC Hgb Hct MCV MCH MCHC RDW Plt Count Seg Neuts % (Manual) Lymphocytes % (Manual) Seg Neutrophils # Man Lymphocytes # (Manual) Monocytes # (Manual) Basophils # (Manual) PT INR POC ABG pH POC ABG pCO2 POC ABG pO2 VBG pH 6.881 L* Sodium Potassium Chloride Carbon Dioxide BUN Creatinine Glucose POC Glucose 481 H Lactic Acid Calcium Phosphorus Magnesium AST ALT Alkaline Phosphatase Total Creatine Kinase CK-MB (CK-2) Troponin T C-Reactive Protein Total Protein Albumin Triglycerides HDL Cholesterol TSH Urine WBC (Auto) 8.0 H 11/11/17 11/11/17 11/11/17 00:01 00:46 00:46 WBC RBC Hgb Hct MCV MCH MCHC RDW Plt Count Seg Neuts % (Manual) Lymphocytes % (Manual) Seg Neutrophils # Man Lymphocytes # (Manual) Monocytes # (Manual) Basophils # (Manual) PT INR POC ABG pH POC ABG pCO2 POC ABG pO2 VBG pH Sodium 135 L Potassium Chloride Carbon Dioxide 3 L* 5 L* BUN 32 H 32 H Creatinine 1.5 H 1.5 H Glucose 579 H* 560 H* POC Glucose Lactic Acid 2.40 H* Calcium 6.9 L 6.8 L Phosphorus Magnesium AST ALT Alkaline Phosphatase Total Creatine Kinase CK-MB (CK-2) Troponin T C-Reactive Protein Total Protein Albumin Triglycerides HDL Cholesterol TSH Urine WBC (Auto) 11/11/17 11/11/17 11/11/17 00:58 02:19 02:21 WBC RBC Hgb Hct MCV MCH MCHC RDW Plt Count Seg Neuts % (Manual) Lymphocytes % (Manual) Seg Neutrophils # Man Lymphocytes # (Manual) Monocytes # (Manual) Basophils # (Manual) PT INR POC ABG pH POC ABG pCO2 POC ABG pO2 VBG pH Sodium Potassium Chloride Carbon Dioxide BUN Creatinine Glucose POC Glucose > 500 H < 40 L 457 H Lactic Acid Calcium Phosphorus Magnesium AST ALT Alkaline Phosphatase Total Creatine Kinase CK-MB (CK-2) Troponin T C-Reactive Protein Total Protein Albumin Triglycerides HDL Cholesterol TSH Urine WBC (Auto) 11/11/17 11/11/17 11/11/17 03:31 03:45 03:45 WBC RBC Hgb Hct MCV MCH MCHC RDW Plt Count Seg Neuts % (Manual) Lymphocytes % (Manual) Seg Neutrophils # Man Lymphocytes # (Manual) Monocytes # (Manual) Basophils # (Manual) PT INR POC ABG pH POC ABG pCO2 POC ABG pO2 VBG pH Sodium 147 H D Potassium 2.9 L* D Chloride Carbon Dioxide 11 L BUN 31 H Creatinine 1.8 H Glucose 587 H* POC Glucose 436 H Lactic Acid 9.50 H* Calcium 6.4 L Phosphorus Magnesium AST ALT Alkaline Phosphatase Total Creatine Kinase CK-MB (CK-2) Troponin T C-Reactive Protein Total Protein Albumin Triglycerides HDL Cholesterol TSH Urine WBC (Auto) 11/11/17 11/11/17 11/11/17 04:16 04:45 05:50 WBC RBC Hgb Hct MCV MCH MCHC RDW Plt Count Seg Neuts % (Manual) Lymphocytes % (Manual) Seg Neutrophils # Man Lymphocytes # (Manual) Monocytes # (Manual) Basophils # (Manual) PT INR POC ABG pH 7.036 L POC ABG pCO2 POC ABG pO2 66 L VBG pH Sodium Potassium Chloride Carbon Dioxide BUN Creatinine Glucose POC Glucose 495 H > 500 H Lactic Acid Calcium Phosphorus Magnesium AST ALT Alkaline Phosphatase Total Creatine Kinase CK-MB (CK-2) Troponin T C-Reactive Protein Total Protein Albumin Triglycerides HDL Cholesterol TSH Urine WBC (Auto) 11/11/17 11/11/17 11/11/17 06:29 06:29 06:41 WBC RBC Hgb Hct MCV MCH MCHC RDW Plt Count Seg Neuts % (Manual) Lymphocytes % (Manual) Seg Neutrophils # Man Lymphocytes # (Manual) Monocytes # (Manual) Basophils # (Manual) PT INR POC ABG pH POC ABG pCO2 POC ABG pO2 VBG pH Sodium 149 H Potassium 3.0 L Chloride 109.5 H Carbon Dioxide 17 L BUN 31 H Creatinine 1.7 H Glucose 407 H POC Glucose 387 H Lactic Acid 2.60 H* Calcium 6.2 L Phosphorus Magnesium AST ALT Alkaline Phosphatase Total Creatine Kinase CK-MB (CK-2) Troponin T C-Reactive Protein Total Protein Albumin Triglycerides HDL Cholesterol TSH Urine WBC (Auto) 11/11/17 11/11/17 11/11/17 07:05 07:07 07:07 WBC RBC Hgb Hct MCV MCH MCHC RDW Plt Count Seg Neuts % (Manual) Lymphocytes % (Manual) Seg Neutrophils # Man Lymphocytes # (Manual) Monocytes # (Manual) Basophils # (Manual) PT INR POC ABG pH POC ABG pCO2 POC ABG pO2 VBG pH Sodium 151 H Potassium 3.0 L Chloride 107.5 H Carbon Dioxide 11 L BUN 31 H Creatinine 1.8 H Glucose 541 H* POC Glucose 378 H Lactic Acid Calcium 6.5 L Phosphorus Magnesium AST ALT Alkaline Phosphatase Total Creatine Kinase 686 H CK-MB (CK-2) 19.6 H Troponin T C-Reactive Protein Total Protein Albumin Triglycerides HDL Cholesterol TSH Urine WBC (Auto) 11/11/17 11/11/17 11/11/17 08:50 08:52 09:57 WBC RBC Hgb Hct MCV MCH MCHC RDW Plt Count Seg Neuts % (Manual) Lymphocytes % (Manual) Seg Neutrophils # Man Lymphocytes # (Manual) Monocytes # (Manual) Basophils # (Manual) PT INR POC ABG pH 7.175 L POC ABG pCO2 45.1 H POC ABG pO2 33 L VBG pH Sodium Potassium Chloride Carbon Dioxide BUN Creatinine Glucose POC Glucose 256 H 232 H Lactic Acid Calcium Phosphorus Magnesium AST ALT Alkaline Phosphatase Total Creatine Kinase CK-MB (CK-2) Troponin T C-Reactive Protein Total Protein Albumin Triglycerides HDL Cholesterol TSH Urine WBC (Auto) 11/11/17 11/11/17 11/11/17 10:45 10:45 11:08 WBC RBC Hgb Hct MCV MCH 33 H MCHC RDW Plt Count Seg Neuts % (Manual) Lymphocytes % (Manual) Seg Neutrophils # Man Lymphocytes # (Manual) Monocytes # (Manual) Basophils # (Manual) PT INR POC ABG pH 7.157 L POC ABG pCO2 52.2 H POC ABG pO2 31 L VBG pH Sodium Potassium Chloride Carbon Dioxide BUN Creatinine Glucose POC Glucose Lactic Acid Calcium Phosphorus Magnesium AST ALT Alkaline Phosphatase Total Creatine Kinase 1041 H CK-MB (CK-2) 31.9 H Troponin T 0.041 H D C-Reactive Protein Total Protein Albumin Triglycerides 510 H HDL Cholesterol 26 L TSH Urine WBC (Auto) 11/11/17 11/11/17 11/11/17 11:12 12:33 12:38 WBC RBC Hgb Hct MCV MCH MCHC RDW Plt Count Seg Neuts % (Manual) Lymphocytes % (Manual) Seg Neutrophils # Man Lymphocytes # (Manual) Monocytes # (Manual) Basophils # (Manual) PT INR POC ABG pH 7.258 L POC ABG pCO2 94.5 H POC ABG pO2 50 L VBG pH Sodium Potassium Chloride Carbon Dioxide BUN Creatinine Glucose POC Glucose 246 H 265 H Lactic Acid Calcium Phosphorus Magnesium AST ALT Alkaline Phosphatase Total Creatine Kinase CK-MB (CK-2) Troponin T C-Reactive Protein Total Protein Albumin Triglycerides HDL Cholesterol TSH Urine WBC (Auto) 11/11/17 11/11/17 11/11/17 12:40 12:40 12:40 WBC RBC Hgb Hct MCV MCH MCHC RDW Plt Count Seg Neuts % (Manual) Lymphocytes % (Manual) Seg Neutrophils # Man Lymphocytes # (Manual) Monocytes # (Manual) Basophils # (Manual) PT INR POC ABG pH POC ABG pCO2 POC ABG pO2 VBG pH Sodium 171 H* D Potassium 2.9 L* Chloride 118.2 H Carbon Dioxide 39 H D BUN 28 H Creatinine 1.8 H Glucose 301 H POC Glucose Lactic Acid 11.70 H* Calcium 11.4 H D Phosphorus Magnesium AST ALT Alkaline Phosphatase Total Creatine Kinase CK-MB (CK-2) Troponin T C-Reactive Protein 7.40 H Total Protein Albumin Triglycerides HDL Cholesterol TSH Urine WBC (Auto) 11/11/17 11/11/17 11/11/17 13:58 14:53 15:42 WBC RBC Hgb Hct MCV MCH MCHC RDW Plt Count Seg Neuts % (Manual) Lymphocytes % (Manual) Seg Neutrophils # Man Lymphocytes # (Manual) Monocytes # (Manual) Basophils # (Manual) PT INR POC ABG pH POC ABG pCO2 POC ABG pO2 VBG pH Sodium Potassium Chloride Carbon Dioxide BUN Creatinine Glucose POC Glucose 244 H 273 H 311 H Lactic Acid Calcium Phosphorus Magnesium AST ALT Alkaline Phosphatase Total Creatine Kinase CK-MB (CK-2) Troponin T C-Reactive Protein Total Protein Albumin Triglycerides HDL Cholesterol TSH Urine WBC (Auto) 11/11/17 11/11/17 11/11/17 16:08 17:09 18:41 WBC RBC Hgb Hct MCV MCH MCHC RDW Plt Count Seg Neuts % (Manual) Lymphocytes % (Manual) Seg Neutrophils # Man Lymphocytes # (Manual) Monocytes # (Manual) Basophils # (Manual) PT INR POC ABG pH POC ABG pCO2 POC ABG pO2 VBG pH Sodium 153 H D Potassium 3.3 L Chloride 112.6 H Carbon Dioxide 14 L D BUN 30 H Creatinine 2.1 H Glucose 301 H POC Glucose 337 H 262 H Lactic Acid Calcium 7.8 L D Phosphorus Magnesium AST ALT Alkaline Phosphatase Total Creatine Kinase CK-MB (CK-2) Troponin T C-Reactive Protein Total Protein Albumin Triglycerides HDL Cholesterol TSH Urine WBC (Auto) 11/11/17 11/11/17 11/11/17 19:49 20:14 20:25 WBC RBC Hgb Hct MCV MCH MCHC RDW Plt Count Seg Neuts % (Manual) Lymphocytes % (Manual) Seg Neutrophils # Man Lymphocytes # (Manual) Monocytes # (Manual) Basophils # (Manual) PT INR POC ABG pH POC ABG pCO2 POC ABG pO2 VBG pH Sodium 154 H Potassium 2.7 L* Chloride 110.8 H Carbon Dioxide 20 L BUN 31 H Creatinine 2.4 H Glucose 261 H POC Glucose 281 H 265 H Lactic Acid Calcium 7.9 L Phosphorus Magnesium AST ALT Alkaline Phosphatase Total Creatine Kinase CK-MB (CK-2) Troponin T C-Reactive Protein Total Protein Albumin Triglycerides HDL Cholesterol TSH Urine WBC (Auto) 11/11/17 11/11/17 11/11/17 20:53 21:55 23:17 WBC RBC Hgb Hct MCV MCH MCHC RDW Plt Count Seg Neuts % (Manual) Lymphocytes % (Manual) Seg Neutrophils # Man Lymphocytes # (Manual) Monocytes # (Manual) Basophils # (Manual) PT INR POC ABG pH POC ABG pCO2 POC ABG pO2 VBG pH Sodium Potassium Chloride Carbon Dioxide BUN Creatinine Glucose POC Glucose 274 H 209 H 180 H Lactic Acid Calcium Phosphorus Magnesium AST ALT Alkaline Phosphatase Total Creatine Kinase CK-MB (CK-2) Troponin T C-Reactive Protein Total Protein Albumin Triglycerides HDL Cholesterol TSH Urine WBC (Auto) 11/12/17 11/12/17 11/12/17 00:09 00:26 01:12 WBC RBC Hgb Hct MCV MCH MCHC RDW Plt Count Seg Neuts % (Manual) Lymphocytes % (Manual) Seg Neutrophils # Man Lymphocytes # (Manual) Monocytes # (Manual) Basophils # (Manual) PT INR POC ABG pH POC ABG pCO2 POC ABG pO2 VBG pH Sodium 154 H Potassium Chloride 113.1 H Carbon Dioxide 17 L BUN 34 H Creatinine 2.5 H Glucose 144 H POC Glucose 176 H 148 H Lactic Acid Calcium 7.7 L Phosphorus Magnesium AST ALT Alkaline Phosphatase Total Creatine Kinase CK-MB (CK-2) Troponin T C-Reactive Protein Total Protein Albumin Triglycerides HDL Cholesterol TSH Urine WBC (Auto) 11/12/17 11/12/17 11/12/17 02:05 03:27 04:22 WBC RBC Hgb Hct MCV MCH MCHC RDW Plt Count Seg Neuts % (Manual) Lymphocytes % (Manual) Seg Neutrophils # Man Lymphocytes # (Manual) Monocytes # (Manual) Basophils # (Manual) PT INR POC ABG pH POC ABG pCO2 POC ABG pO2 VBG pH Sodium Potassium Chloride Carbon Dioxide BUN Creatinine Glucose POC Glucose 148 H 156 H 137 H Lactic Acid Calcium Phosphorus Magnesium AST ALT Alkaline Phosphatase Total Creatine Kinase CK-MB (CK-2) Troponin T C-Reactive Protein Total Protein Albumin Triglycerides HDL Cholesterol TSH Urine WBC (Auto) 11/12/17 11/12/17 11/12/17 04:42 05:06 05:34 WBC RBC Hgb Hct MCV MCH MCHC RDW Plt Count Seg Neuts % (Manual) Lymphocytes % (Manual) Seg Neutrophils # Man Lymphocytes # (Manual) Monocytes # (Manual) Basophils # (Manual) PT INR POC ABG pH POC ABG pCO2 POC ABG pO2 56 L VBG pH Sodium 154 H Potassium 3.2 L D Chloride 109.8 H Carbon Dioxide BUN 32 H Creatinine 2.6 H Glucose 157 H POC Glucose 163 H Lactic Acid Calcium 7.3 L Phosphorus Magnesium AST ALT Alkaline Phosphatase Total Creatine Kinase CK-MB (CK-2) Troponin T C-Reactive Protein Total Protein Albumin Triglycerides HDL Cholesterol TSH Urine WBC (Auto) 11/12/17 11/12/17 11/12/17 05:42 06:23 06:36 WBC RBC Hgb Hct MCV MCH MCHC RDW Plt Count Seg Neuts % (Manual) Lymphocytes % (Manual) Seg Neutrophils # Man Lymphocytes # (Manual) Monocytes # (Manual) Basophils # (Manual) PT INR POC ABG pH POC ABG pCO2 POC ABG pO2 VBG pH Sodium Potassium Chloride Carbon Dioxide BUN Creatinine Glucose POC Glucose 166 H 171 H 181 H Lactic Acid Calcium Phosphorus Magnesium AST ALT Alkaline Phosphatase Total Creatine Kinase CK-MB (CK-2) Troponin T C-Reactive Protein Total Protein Albumin Triglycerides HDL Cholesterol TSH Urine WBC (Auto) 11/12/17 11/12/17 11/12/17 07:07 08:16 09:10 WBC RBC Hgb Hct MCV MCH MCHC RDW Plt Count Seg Neuts % (Manual) Lymphocytes % (Manual) Seg Neutrophils # Man Lymphocytes # (Manual) Monocytes # (Manual) Basophils # (Manual) PT INR POC ABG pH POC ABG pCO2 POC ABG pO2 VBG pH Sodium Potassium Chloride Carbon Dioxide BUN Creatinine Glucose POC Glucose 170 H 171 H 170 H Lactic Acid Calcium Phosphorus Magnesium AST ALT Alkaline Phosphatase Total Creatine Kinase CK-MB (CK-2) Troponin T C-Reactive Protein Total Protein Albumin Triglycerides HDL Cholesterol TSH Urine WBC (Auto) 11/12/17 11/12/17 11/12/17 11:12 12:13 12:13 WBC RBC Hgb Hct MCV MCH MCHC RDW Plt Count Seg Neuts % (Manual) Lymphocytes % (Manual) Seg Neutrophils # Man Lymphocytes # (Manual) Monocytes # (Manual) Basophils # (Manual) PT INR POC ABG pH 7.316 L POC ABG pCO2 57.4 H POC ABG pO2 46 L VBG pH Sodium Potassium Chloride Carbon Dioxide BUN Creatinine Glucose POC Glucose 145 H 123 H Lactic Acid Calcium Phosphorus Magnesium AST ALT Alkaline Phosphatase Total Creatine Kinase CK-MB (CK-2) Troponin T C-Reactive Protein Total Protein Albumin Triglycerides HDL Cholesterol TSH Urine WBC (Auto) 11/12/17 11/12/17 11/12/17 14:52 18:05 18:05 WBC 29.0 H RBC 3.15 L Hgb Hct 29.4 L D MCV MCH MCHC 35 H RDW Plt Count 115 L Seg Neuts % (Manual) 90.0 H Lymphocytes % (Manual) 6.0 L Seg Neutrophils # Man 26.1 H Lymphocytes # (Manual) Monocytes # (Manual) 1.2 H Basophils # (Manual) PT INR POC ABG pH POC ABG pCO2 POC ABG pO2 VBG pH Sodium 148 H Potassium Chloride Carbon Dioxide BUN 34 H Creatinine 2.9 H Glucose 147 H POC Glucose 139 H Lactic Acid Calcium 6.6 L Phosphorus Magnesium AST ALT Alkaline Phosphatase Total Creatine Kinase CK-MB (CK-2) Troponin T C-Reactive Protein Total Protein Albumin Triglycerides HDL Cholesterol TSH Urine WBC (Auto) 11/12/17 11/12/17 11/12/17 18:19 18:23 18:45 WBC RBC Hgb Hct MCV MCH MCHC RDW Plt Count Seg Neuts % (Manual) Lymphocytes % (Manual) Seg Neutrophils # Man Lymphocytes # (Manual) Monocytes # (Manual) Basophils # (Manual) PT INR POC ABG pH 7.248 L 7.253 L POC ABG pCO2 61.4 H 58.2 H POC ABG pO2 24 L 56 L VBG pH Sodium Potassium Chloride Carbon Dioxide BUN Creatinine Glucose POC Glucose 154 H Lactic Acid Calcium Phosphorus Magnesium AST ALT Alkaline Phosphatase Total Creatine Kinase CK-MB (CK-2) Troponin T C-Reactive Protein Total Protein Albumin Triglycerides HDL Cholesterol TSH Urine WBC (Auto) 11/12/17 11/12/17 11/12/17 19:08 20:12 21:14 WBC RBC Hgb Hct MCV MCH MCHC RDW Plt Count Seg Neuts % (Manual) Lymphocytes % (Manual) Seg Neutrophils # Man Lymphocytes # (Manual) Monocytes # (Manual) Basophils # (Manual) PT INR POC ABG pH POC ABG pCO2 POC ABG pO2 VBG pH Sodium Potassium Chloride Carbon Dioxide BUN Creatinine Glucose POC Glucose 154 H 155 H 130 H Lactic Acid Calcium Phosphorus Magnesium AST ALT Alkaline Phosphatase Total Creatine Kinase CK-MB (CK-2) Troponin T C-Reactive Protein Total Protein Albumin Triglycerides HDL Cholesterol TSH Urine WBC (Auto) 11/12/17 11/12/17 11/13/17 21:30 22:08 01:17 WBC RBC Hgb Hct MCV MCH MCHC RDW Plt Count Seg Neuts % (Manual) Lymphocytes % (Manual) Seg Neutrophils # Man Lymphocytes # (Manual) Monocytes # (Manual) Basophils # (Manual) PT INR POC ABG pH 7.220 L POC ABG pCO2 57.4 H POC ABG pO2 50 L VBG pH Sodium 146 H Potassium Chloride Carbon Dioxide BUN 35 H Creatinine 3.2 H Glucose 120 H POC Glucose 108 H Lactic Acid Calcium 6.3 L Phosphorus Magnesium AST ALT Alkaline Phosphatase Total Creatine Kinase CK-MB (CK-2) Troponin T C-Reactive Protein Total Protein Albumin Triglycerides HDL Cholesterol TSH Urine WBC (Auto) 11/13/17 11/13/17 11/13/17 01:30 01:33 03:31 WBC RBC Hgb Hct MCV MCH MCHC RDW Plt Count Seg Neuts % (Manual) Lymphocytes % (Manual) Seg Neutrophils # Man Lymphocytes # (Manual) Monocytes # (Manual) Basophils # (Manual) PT INR POC ABG pH POC ABG pCO2 POC ABG pO2 VBG pH Sodium 146 H Potassium Chloride Carbon Dioxide BUN 36 H Creatinine 3.4 H Glucose 143 H POC Glucose 117 H 123 H Lactic Acid Calcium 6.0 L Phosphorus Magnesium AST ALT Alkaline Phosphatase Total Creatine Kinase CK-MB (CK-2) Troponin T C-Reactive Protein Total Protein Albumin Triglycerides HDL Cholesterol TSH Urine WBC (Auto) 11/13/17 11/13/17 11/13/17 04:25 05:14 06:00 WBC RBC Hgb Hct MCV MCH MCHC RDW Plt Count Seg Neuts % (Manual) Lymphocytes % (Manual) Seg Neutrophils # Man Lymphocytes # (Manual) Monocytes # (Manual) Basophils # (Manual) PT INR POC ABG pH POC ABG pCO2 POC ABG pO2 VBG pH Sodium Potassium Chloride Carbon Dioxide BUN 39 H Creatinine 3.8 H Glucose 182 H POC Glucose 161 H 163 H Lactic Acid Calcium 6.6 L Phosphorus 4.90 H Magnesium 1.20 L AST ALT Alkaline Phosphatase Total Creatine Kinase CK-MB (CK-2) Troponin T C-Reactive Protein Total Protein Albumin Triglycerides HDL Cholesterol TSH Urine WBC (Auto) 11/13/17 11/13/17 11/13/17 06:00 06:07 06:24 WBC 32.3 H RBC 3.40 L Hgb Hct MCV MCH MCHC RDW Plt Count 99 L Seg Neuts % (Manual) Lymphocytes % (Manual) Seg Neutrophils # Man Lymphocytes # (Manual) Monocytes # (Manual) Basophils # (Manual) PT INR POC ABG pH 7.199 L POC ABG pCO2 58.3 H POC ABG pO2 70 L VBG pH Sodium Potassium Chloride Carbon Dioxide BUN Creatinine Glucose POC Glucose 171 H Lactic Acid Calcium Phosphorus Magnesium AST ALT Alkaline Phosphatase Total Creatine Kinase CK-MB (CK-2) Troponin T C-Reactive Protein Total Protein Albumin Triglycerides HDL Cholesterol TSH Urine WBC (Auto) 11/13/17 11/13/17 11/13/17 07:42 08:55 09:25 WBC RBC Hgb Hct MCV MCH MCHC RDW Plt Count Seg Neuts % (Manual) Lymphocytes % (Manual) Seg Neutrophils # Man Lymphocytes # (Manual) Monocytes # (Manual) Basophils # (Manual) PT INR POC ABG pH POC ABG pCO2 POC ABG pO2 VBG pH Sodium Potassium Chloride Carbon Dioxide BUN Creatinine Glucose POC Glucose 132 H 143 H 123 H Lactic Acid Calcium Phosphorus Magnesium AST ALT Alkaline Phosphatase Total Creatine Kinase CK-MB (CK-2) Troponin T C-Reactive Protein Total Protein Albumin Triglycerides HDL Cholesterol TSH Urine WBC (Auto) 11/13/17 11/13/17 11/13/17 10:01 10:30 11:06 WBC RBC Hgb Hct MCV MCH MCHC RDW Plt Count Seg Neuts % (Manual) Lymphocytes % (Manual) Seg Neutrophils # Man Lymphocytes # (Manual) Monocytes # (Manual) Basophils # (Manual) PT INR POC ABG pH POC ABG pCO2 POC ABG pO2 VBG pH Sodium Potassium Chloride Carbon Dioxide BUN 41 H Creatinine 4.0 H Glucose 127 H POC Glucose 122 H 129 H Lactic Acid Calcium 6.6 L Phosphorus Magnesium AST ALT Alkaline Phosphatase Total Creatine Kinase CK-MB (CK-2) Troponin T C-Reactive Protein Total Protein Albumin Triglycerides HDL Cholesterol TSH Urine WBC (Auto) 11/13/17 11/13/17 11/13/17 12:01 12:08 14:59 WBC RBC Hgb Hct MCV MCH MCHC RDW Plt Count Seg Neuts % (Manual) Lymphocytes % (Manual) Seg Neutrophils # Man Lymphocytes # (Manual) Monocytes # (Manual) Basophils # (Manual) PT INR POC ABG pH 7.307 L POC ABG pCO2 52.9 H POC ABG pO2 VBG pH Sodium Potassium Chloride Carbon Dioxide BUN Creatinine Glucose POC Glucose 122 H 112 H Lactic Acid Calcium Phosphorus Magnesium AST ALT Alkaline Phosphatase Total Creatine Kinase CK-MB (CK-2) Troponin T C-Reactive Protein Total Protein Albumin Triglycerides HDL Cholesterol TSH Urine WBC (Auto) 11/13/17 11/13/17 11/13/17 16:15 17:58 19:08 WBC RBC Hgb Hct MCV MCH MCHC RDW Plt Count Seg Neuts % (Manual) Lymphocytes % (Manual) Seg Neutrophils # Man Lymphocytes # (Manual) Monocytes # (Manual) Basophils # (Manual) PT INR POC ABG pH POC ABG pCO2 POC ABG pO2 VBG pH Sodium Potassium 5.1 H D Chloride Carbon Dioxide BUN 44 H Creatinine 4.3 H Glucose 117 H POC Glucose 128 H 110 H Lactic Acid Calcium 7.0 L Phosphorus Magnesium AST ALT Alkaline Phosphatase Total Creatine Kinase CK-MB (CK-2) Troponin T C-Reactive Protein Total Protein Albumin Triglycerides HDL Cholesterol TSH Urine WBC (Auto) 11/13/17 11/13/17 11/13/17 19:59 20:22 21:05 WBC RBC Hgb Hct MCV MCH MCHC RDW Plt Count Seg Neuts % (Manual) Lymphocytes % (Manual) Seg Neutrophils # Man Lymphocytes # (Manual) Monocytes # (Manual) Basophils # (Manual) PT INR POC ABG pH POC ABG pCO2 POC ABG pO2 VBG pH Sodium Potassium Chloride Carbon Dioxide BUN 48 H Creatinine 4.5 H Glucose 181 H POC Glucose 180 H 134 H Lactic Acid Calcium 7.0 L Phosphorus Magnesium AST ALT Alkaline Phosphatase Total Creatine Kinase CK-MB (CK-2) Troponin T C-Reactive Protein Total Protein Albumin Triglycerides HDL Cholesterol TSH Urine WBC (Auto) 11/13/17 11/13/17 11/14/17 22:04 23:08 00:08 WBC RBC Hgb Hct MCV MCH MCHC RDW Plt Count Seg Neuts % (Manual) Lymphocytes % (Manual) Seg Neutrophils # Man Lymphocytes # (Manual) Monocytes # (Manual) Basophils # (Manual) PT INR POC ABG pH POC ABG pCO2 POC ABG pO2 VBG pH Sodium Potassium Chloride Carbon Dioxide BUN Creatinine Glucose POC Glucose 135 H 143 H 121 H Lactic Acid Calcium Phosphorus Magnesium AST ALT Alkaline Phosphatase Total Creatine Kinase CK-MB (CK-2) Troponin T C-Reactive Protein Total Protein Albumin Triglycerides HDL Cholesterol TSH Urine WBC (Auto) 11/14/17 11/14/17 11/14/17 00:37 01:07 01:27 WBC RBC Hgb Hct MCV MCH MCHC RDW Plt Count Seg Neuts % (Manual) Lymphocytes % (Manual) Seg Neutrophils # Man Lymphocytes # (Manual) Monocytes # (Manual) Basophils # (Manual) PT INR POC ABG pH 7.308 L POC ABG pCO2 POC ABG pO2 161 H VBG pH Sodium Potassium 5.2 H Chloride Carbon Dioxide BUN 49 H Creatinine 4.6 H Glucose 123 H POC Glucose 106 H Lactic Acid Calcium 6.5 L Phosphorus Magnesium AST ALT Alkaline Phosphatase Total Creatine Kinase CK-MB (CK-2) Troponin T C-Reactive Protein Total Protein Albumin Triglycerides HDL Cholesterol TSH Urine WBC (Auto) 11/14/17 11/14/17 11/14/17 02:20 03:09 04:00 WBC RBC Hgb Hct MCV MCH MCHC RDW Plt Count Seg Neuts % (Manual) Lymphocytes % (Manual) Seg Neutrophils # Man Lymphocytes # (Manual) Monocytes # (Manual) Basophils # (Manual) PT INR POC ABG pH POC ABG pCO2 POC ABG pO2 VBG pH Sodium Potassium 5.5 H Chloride Carbon Dioxide BUN 51 H Creatinine 4.5 H Glucose 181 H POC Glucose 130 H 126 H Lactic Acid Calcium 6.6 L Phosphorus Magnesium AST ALT Alkaline Phosphatase Total Creatine Kinase CK-MB (CK-2) Troponin T C-Reactive Protein Total Protein Albumin Triglycerides HDL Cholesterol TSH Urine WBC (Auto) 11/14/17 11/14/17 11/14/17 04:00 04:36 06:29 WBC 31.6 H RBC 3.39 L Hgb Hct MCV MCH MCHC RDW 15.3 H Plt Count 87 L Seg Neuts % (Manual) Lymphocytes % (Manual) Seg Neutrophils # Man Lymphocytes # (Manual) Monocytes # (Manual) Basophils # (Manual) PT INR POC ABG pH POC ABG pCO2 POC ABG pO2 VBG pH Sodium Potassium Chloride Carbon Dioxide BUN Creatinine Glucose POC Glucose 135 H 166 H Lactic Acid Calcium Phosphorus Magnesium AST ALT Alkaline Phosphatase Total Creatine Kinase CK-MB (CK-2) Troponin T C-Reactive Protein Total Protein Albumin Triglycerides HDL Cholesterol TSH Urine WBC (Auto) 11/14/17 11/14/17 11/14/17 12:02 12:45 12:45 WBC RBC Hgb Hct MCV MCH MCHC RDW Plt Count Seg Neuts % (Manual) Lymphocytes % (Manual) Seg Neutrophils # Man Lymphocytes # (Manual) Monocytes # (Manual) Basophils # (Manual) PT 20.8 H INR 1.68 H POC ABG pH POC ABG pCO2 POC ABG pO2 VBG pH Sodium Potassium 5.5 H Chloride Carbon Dioxide 19 L BUN 58 H Creatinine 4.8 H Glucose 313 H POC Glucose 222 H Lactic Acid Calcium 6.4 L Phosphorus Magnesium AST ALT Alkaline Phosphatase Total Creatine Kinase CK-MB (CK-2) Troponin T C-Reactive Protein Total Protein Albumin Triglycerides HDL Cholesterol TSH Urine WBC (Auto) 11/14/17 11/14/17 11/14/17 16:34 18:12 23:15 WBC RBC Hgb Hct MCV MCH MCHC RDW Plt Count Seg Neuts % (Manual) Lymphocytes % (Manual) Seg Neutrophils # Man Lymphocytes # (Manual) Monocytes # (Manual) Basophils # (Manual) PT INR POC ABG pH POC ABG pCO2 POC ABG pO2 VBG pH Sodium Potassium Chloride Carbon Dioxide 17 L BUN 63 H Creatinine 5.1 H Glucose 368 H POC Glucose 381 H 434 H Lactic Acid Calcium 6.4 L Phosphorus Magnesium AST ALT Alkaline Phosphatase Total Creatine Kinase CK-MB (CK-2) Troponin T C-Reactive Protein Total Protein Albumin Triglycerides HDL Cholesterol TSH Urine WBC (Auto) 11/14/17 11/15/17 11/15/17 Unknown 00:51 04:23 WBC RBC Hgb Hct MCV MCH MCHC RDW Plt Count Seg Neuts % (Manual) Lymphocytes % (Manual) Seg Neutrophils # Man Lymphocytes # (Manual) Monocytes # (Manual) Basophils # (Manual) PT INR POC ABG pH 7.287 L POC ABG pCO2 POC ABG pO2 141 H VBG pH Sodium Potassium Chloride Carbon Dioxide BUN Creatinine Glucose POC Glucose 415 H Lactic Acid 2.80 H* Calcium Phosphorus Magnesium AST ALT Alkaline Phosphatase Total Creatine Kinase CK-MB (CK-2) Troponin T C-Reactive Protein Total Protein Albumin Triglycerides HDL Cholesterol TSH Urine WBC (Auto) 11/15/17 11/15/17 11/15/17 05:00 05:43 10:00 WBC 12.0 H RBC 2.23 L Hgb 7.2 L D Hct 21.7 L D MCV MCH MCHC RDW Plt Count 64 L Seg Neuts % (Manual) 79.0 H Lymphocytes % (Manual) 4.0 L Seg Neutrophils # Man 9.5 H Lymphocytes # (Manual) 0.5 L Monocytes # (Manual) Basophils # (Manual) PT INR POC ABG pH POC ABG pCO2 POC ABG pO2 VBG pH Sodium Potassium Chloride Carbon Dioxide 18 L BUN 73 H Creatinine 5.3 H Glucose 461 H POC Glucose 416 H Lactic Acid Calcium 6.7 L Phosphorus Magnesium AST ALT Alkaline Phosphatase Total Creatine Kinase CK-MB (CK-2) Troponin T C-Reactive Protein Total Protein Albumin Triglycerides HDL Cholesterol TSH Urine WBC (Auto) 11/15/17 11/15/17 11/15/17 10:00 12:24 18:42 WBC RBC Hgb Hct MCV MCH MCHC RDW Plt Count Seg Neuts % (Manual) Lymphocytes % (Manual) Seg Neutrophils # Man Lymphocytes # (Manual) Monocytes # (Manual) Basophils # (Manual) PT INR POC ABG pH POC ABG pCO2 POC ABG pO2 VBG pH Sodium Potassium Chloride Carbon Dioxide 21 L BUN 76 H Creatinine 5.7 H Glucose 386 H POC Glucose 374 H 343 H Lactic Acid Calcium 6.9 L Phosphorus Magnesium AST ALT Alkaline Phosphatase Total Creatine Kinase CK-MB (CK-2) Troponin T C-Reactive Protein Total Protein Albumin Triglycerides HDL Cholesterol TSH Urine WBC (Auto) 11/16/17 11/16/17 11/16/17 00:00 04:19 04:40 WBC RBC 2.60 L Hgb 8.5 L Hct 24.4 L MCV MCH 33 H MCHC 35 H RDW Plt Count 65 L Seg Neuts % (Manual) 92.0 H Lymphocytes % (Manual) 2.0 L Seg Neutrophils # Man 10.0 H Lymphocytes # (Manual) 0.2 L Monocytes # (Manual) Basophils # (Manual) PT INR POC ABG pH POC ABG pCO2 POC ABG pO2 66 L VBG pH Sodium Potassium Chloride Carbon Dioxide BUN Creatinine Glucose POC Glucose 205 H Lactic Acid Calcium Phosphorus Magnesium AST ALT Alkaline Phosphatase Total Creatine Kinase CK-MB (CK-2) Troponin T C-Reactive Protein Total Protein Albumin Triglycerides HDL Cholesterol TSH Urine WBC (Auto) 11/16/17 11/16/17 11/16/17 04:40 05:14 14:08 WBC RBC Hgb Hct MCV MCH MCHC RDW Plt Count Seg Neuts % (Manual) Lymphocytes % (Manual) Seg Neutrophils # Man Lymphocytes # (Manual) Monocytes # (Manual) Basophils # (Manual) PT INR POC ABG pH POC ABG pCO2 POC ABG pO2 VBG pH Sodium Potassium 3.2 L Chloride Carbon Dioxide BUN 48 H Creatinine 3.7 H Glucose 142 H POC Glucose 139 H 201 H Lactic Acid Calcium 8.0 L D Phosphorus Magnesium AST 2275 H ALT 647 H Alkaline Phosphatase 268 H Total Creatine Kinase 363 H CK-MB (CK-2) Troponin T C-Reactive Protein Total Protein 3.9 L Albumin 2.1 L Triglycerides HDL Cholesterol TSH Urine WBC (Auto) 11/16/17 11/16/17 11/17/17 18:51 23:48 04:16 WBC RBC Hgb Hct MCV MCH MCHC RDW Plt Count Seg Neuts % (Manual) Lymphocytes % (Manual) Seg Neutrophils # Man Lymphocytes # (Manual) Monocytes # (Manual) Basophils # (Manual) PT INR POC ABG pH 7.487 H POC ABG pCO2 POC ABG pO2 158 H VBG pH Sodium Potassium Chloride Carbon Dioxide BUN Creatinine Glucose POC Glucose 130 H 138 H Lactic Acid Calcium Phosphorus Magnesium AST ALT Alkaline Phosphatase Total Creatine Kinase CK-MB (CK-2) Troponin T C-Reactive Protein Total Protein Albumin Triglycerides HDL Cholesterol TSH Urine WBC (Auto) 11/17/17 11/17/17 11/17/17 05:15 05:15 05:15 WBC RBC 2.58 L Hgb 8.3 L Hct 24.4 L MCV MCH MCHC RDW Plt Count 49 L Seg Neuts % (Manual) 83.0 H Lymphocytes % (Manual) 4.0 L Seg Neutrophils # Man Lymphocytes # (Manual) 0.4 L Monocytes # (Manual) Basophils # (Manual) PT 18.6 H INR 1.46 H POC ABG pH POC ABG pCO2 POC ABG pO2 VBG pH Sodium Potassium 3.4 L Chloride Carbon Dioxide BUN 70 H Creatinine 4.6 H Glucose 107 H POC Glucose Lactic Acid Calcium 7.5 L Phosphorus Magnesium AST 2722 H ALT 504 H Alkaline Phosphatase 278 H Total Creatine Kinase CK-MB (CK-2) Troponin T C-Reactive Protein Total Protein 3.8 L Albumin 2.3 L Triglycerides HDL Cholesterol TSH Urine WBC (Auto) 11/17/17 11/17/17 11/17/17 06:07 11:28 18:08 WBC RBC Hgb Hct MCV MCH MCHC RDW Plt Count Seg Neuts % (Manual) Lymphocytes % (Manual) Seg Neutrophils # Man Lymphocytes # (Manual) Monocytes # (Manual) Basophils # (Manual) PT INR POC ABG pH POC ABG pCO2 POC ABG pO2 VBG pH Sodium Potassium Chloride Carbon Dioxide BUN Creatinine Glucose POC Glucose 126 H 195 H 256 H Lactic Acid Calcium Phosphorus Magnesium AST ALT Alkaline Phosphatase Total Creatine Kinase CK-MB (CK-2) Troponin T C-Reactive Protein Total Protein Albumin Triglycerides HDL Cholesterol TSH Urine WBC (Auto) 11/18/17 11/18/17 11/18/17 05:30 11:58 17:11 WBC RBC Hgb Hct MCV MCH MCHC RDW Plt Count Seg Neuts % (Manual) Lymphocytes % (Manual) Seg Neutrophils # Man Lymphocytes # (Manual) Monocytes # (Manual) Basophils # (Manual) PT INR POC ABG pH POC ABG pCO2 POC ABG pO2 VBG pH Sodium Potassium Chloride Carbon Dioxide BUN 63 H Creatinine 3.6 H Glucose 299 H POC Glucose 377 H 294 H Lactic Acid Calcium 7.6 L Phosphorus Magnesium AST 1870 H ALT 344 H Alkaline Phosphatase 264 H Total Creatine Kinase CK-MB (CK-2) Troponin T C-Reactive Protein Total Protein 3.7 L Albumin 1.9 L Triglycerides HDL Cholesterol TSH Urine WBC (Auto) 11/18/17 11/19/17 11/19/17 23:20 00:17 05:48 WBC RBC Hgb Hct MCV MCH MCHC RDW Plt Count Seg Neuts % (Manual) Lymphocytes % (Manual) Seg Neutrophils # Man Lymphocytes # (Manual) Monocytes # (Manual) Basophils # (Manual) PT INR POC ABG pH POC ABG pCO2 POC ABG pO2 VBG pH Sodium Potassium Chloride Carbon Dioxide BUN Creatinine Glucose POC Glucose 274 H 247 H 237 H Lactic Acid Calcium Phosphorus Magnesium AST ALT Alkaline Phosphatase Total Creatine Kinase CK-MB (CK-2) Troponin T C-Reactive Protein Total Protein Albumin Triglycerides HDL Cholesterol TSH Urine WBC (Auto) 11/19/17 11/19/17 11/19/17 06:47 06:47 12:38 WBC 23.5 H RBC 3.10 L Hgb 10.0 L Hct 29.5 L MCV MCH MCHC RDW Plt Count 118 L D Seg Neuts % (Manual) Lymphocytes % (Manual) Seg Neutrophils # Man Lymphocytes # (Manual) Monocytes # (Manual) Basophils # (Manual) PT INR POC ABG pH POC ABG pCO2 POC ABG pO2 VBG pH Sodium Potassium Chloride Carbon Dioxide 21 L BUN 89 H Creatinine 4.5 H Glucose 246 H POC Glucose 288 H Lactic Acid Calcium 7.5 L Phosphorus Magnesium AST 1732 H ALT 191 H Alkaline Phosphatase 262 H Total Creatine Kinase CK-MB (CK-2) Troponin T C-Reactive Protein Total Protein 3.9 L Albumin 1.7 L Triglycerides HDL Cholesterol TSH Urine WBC (Auto) 11/19/17 11/19/17 11/20/17 18:44 23:33 05:53 WBC RBC Hgb Hct MCV MCH MCHC RDW Plt Count Seg Neuts % (Manual) Lymphocytes % (Manual) Seg Neutrophils # Man Lymphocytes # (Manual) Monocytes # (Manual) Basophils # (Manual) PT INR POC ABG pH POC ABG pCO2 POC ABG pO2 VBG pH Sodium Potassium Chloride Carbon Dioxide BUN Creatinine Glucose POC Glucose 274 H 247 H 209 H Lactic Acid Calcium Phosphorus Magnesium AST ALT Alkaline Phosphatase Total Creatine Kinase CK-MB (CK-2) Troponin T C-Reactive Protein Total Protein Albumin Triglycerides HDL Cholesterol TSH Urine WBC (Auto) Allied health notes reviewed: RT
[2017-11-20] MEDS: DIFLUCAN 200 MG/100 ML BAG IV SCH (09:38)
[2017-11-20] MEDS: ceFAZolin 2 GM in NACL 0.9% 100 ML IV SCH (09:38)
[2017-11-20] MEDS: PEPCID PO SCH (09:39)
--- NOTE | 2017-11-20 09:43 | Event Note ---
Date: 11/20/17 Patient's respiratory rate on mechanical ventilatory support decreased to 12.
[2017-11-20] MEDS ORDERED: MORPHINE IV PRN (11:13)
--- NOTE | 2017-11-20 11:13 | Event Note ---
Date: 11/20/17 Patient not breathing over the set ventilator rate of 12. Family at the bedside. Compassionate extubation order placed. Comfort care measures
[2017-11-20 11:36] VITALS: BP 96/55
--- NOTE | 2017-11-20 15:07 | Death Summary ---
Summary - Providers Date of service: 11/20/17 Consults: 11/10/17 20:27 Consult to Dietitian/Nutrition [CONS] Routine Physician Instructions: Reason For Exam: DKA Reason for Consult: Nutrition Recommendations Reason for Consult: Diet education 11/10/17 23:53 Consult to Physician [CONS] Routine Comment: Dr. Keita spoke with Dr. Cummings @ [id number] Consulting Provider: ERNESTO CUMMINGS Physician Instructions: Reason For Exam: hyperkalemia, acidosis 11/10/17 23:55 Consult to Physician [CONS] Routine Comment: Spoke with Dr. Cuenca @ [phone] Consulting Provider: PHILIPPE CUENCA Physician Instructions: Reason For Exam: cc 11/11/17 09:36 Consult to Physician [CONS] Routine Comment: Consulting Provider: EDITH DUFFY Physician Instructions: Reason For Exam: cardiac arrest 11/11/17 13:44 Consult to Physician [CONS] Urgent Comment: Consulting Provider: LUIS GARAY Physician Instructions: Reason For Exam: severe sepsis 11/13/17 02:54 Consult to Physician [CONS] Routine Comment: Consulting Provider: ALIDA HEMPHILL Physician Instructions: Reason For Exam: possible oral abscess 11/15/17 08:52 Consult to Physician [CONS] Routine Comment: Consulting Provider: JAQUAN KOVACS Physician Instructions: Reason For Exam: Temporary Hemodialysis catheter 11/16/17 08:15 Consult to Physician [CONS] Routine Comment: Consulting Provider: TIFFANI COLIN Physician Instructions: Reason For Exam: Evaluate for liver dysfunction, ?shock liver 11/16/17 12:33 Consult to Physician [CONS] Urgent Comment: Consulting Provider: JAQUAN NEIL Physician Instructions: Reason For Exam: altered mental status Attending: MARIANA MANN - summary Date of admission: 11/10/17 23:55 Date of : 11/20/17 Significant findings: Ms. Melendez is a 37 yo woman with history of DM type 2, HTN, Hypothyroidism, Alcohol abuse, Tobacco dependecncy and Medical noncompliance per chart who presented to the ED via EMS after she was found by a family member at home to be extremely lethargic. She was brought to the ED for evaluation and was subsequently diagnosed with DKA, bilateral PNA, septic shock, ARF and hyperkalemia. Upon transfer from ED to CCU, she became unresponsive and developed cardiopulmonary arrest. ACLS protocol was initiated. At one point, she was noted to be in VF and was shocked twice and given several rounds of epinephrine and was initiated on amio gtt. She was intubated and She subsequently had 3 more cardiac arrest/PEA on the same day. Then she was placed on 4 vasopressors to maintain bp/vitals. s/p cardiorespiratory arrest - She was intubated and ACLS protocol was initiated - s/p cardiac arrest X4, 1st time with [facility],then followed by PEA X3 - likely from Severe DKA and severe septic shock - consulted cardiology, s/p amioderone drip - preserved EF on 2d echo, Acute respiratory failure with severe hypoxia - likely b/l PNA with ARDS due to severe DKA and sepsis - scheduled steroid, nebs, on vent with positive pressure ventilation - added paralytics to improve oxygenation - CC following, Bronchoscopy Severe hypothyroidism - TSH >15 on presentation - started on IV Synthroid DKA - Continue insulin drip, BMP every 4 hours - cont on DKA protocol, start on TF severe Septic shock with bilateral pneumonia - Continue to trend lactic acid, continue vancomycin and Zosyn for now, added clindamycin - Patient currently on levophed - Critical care and ID are following Severe metabolic acidosis - due to DKA, cont insulin drip and BMP every 4 hours Acute renal failure, ATN, poa - Continue IV fluid, nephrology consulted - declining renal function and very low urine output Hypernatremia, - renal is following and managing Bilateral pneumonia, poa - Continue antibiotic, MSSA and Group B strept on trach aspirate culture Hyperkalemia, status post Kayexalate Hypokalemia, will cont to replete Acute metabolic Encephalopathy, poa - cont frequent neuro check - ordered CT head but clinically unstable to do DVT prophylaxis, SCD due to severe thrombocytopenia Hemodynamically improved but unfortunately it appears Ms. Melendez suffered seemingly ill-reversible brain damage. Patient has with SEVERE anoxic brain injury. EEG reviewed, supsect brain , d/w Dr. Gomez, she d/w Family. Withdrawal done, pupils fixed and dilated, no breath sounds, no heart tone I pronounced 1153 suspected Cause of : DKA time of discharge 33 minutes
== END 2017-11-20 15:16 | DRG 853 ==
LOC: ED 19:13 → CC1 23:55
PROVIDERS: ADMIT Internal Medicine; ATTEND Internal Medicine
PROC: 02HV33Z Insertion of Infusion Device into Superior Vena Cava, Percutaneous Approach (ICD-10-PCS; principal; 2017-11-10)
PROC: 5A2204Z Restoration of Cardiac Rhythm, Single (ICD-10-PCS; 2017-11-11)
PROC: 4A033R1 Measurement of Arterial Saturation, Peripheral, Percutaneous Approach (ICD-10-PCS; 2017-11-11)
PROC: 5A1955Z Respiratory Ventilation, Greater than 96 Consecutive Hours (ICD-10-PCS; 2017-11-11)
PROC: 0BH17EZ Insertion of Endotracheal Airway into Trachea, Via Natural or Artificial Opening (ICD-10-PCS; 2017-11-11)
PROC: 3E0234Z Introduction of Serum, Toxoid and Vaccine into Muscle, Percutaneous Approach (ICD-10-PCS; 2017-11-12)
PROC: 0B9J8ZX Drainage of Left Lower Lung Lobe, Via Natural or Artificial Opening Endoscopic, Diagnostic (ICD-10-PCS; 2017-11-14)
PROC: 0B9G8ZX Drainage of Left Upper Lung Lobe, Via Natural or Artificial Opening Endoscopic, Diagnostic (ICD-10-PCS; 2017-11-14)
PROC: 0B9F8ZX Drainage of Right Lower Lung Lobe, Via Natural or Artificial Opening Endoscopic, Diagnostic (ICD-10-PCS; 2017-11-14)
PROC: 06HM33Z Insertion of Infusion Device into Right Femoral Vein, Percutaneous Approach (ICD-10-PCS; 2017-11-15)
PROC: B54BZZA Ultrasonography of Right Lower Extremity Veins, Guidance (ICD-10-PCS; 2017-11-15)
PROC: 5A1D70Z Performance of Urinary Filtration, Intermittent, Less than 6 Hours Per Day (ICD-10-PCS; 2017-11-15)
PROC: 5A1D70Z Performance of Urinary Filtration, Intermittent, Less than 6 Hours Per Day (ICD-10-PCS; 2017-11-17)
PROC: 5A1D70Z Performance of Urinary Filtration, Intermittent, Less than 6 Hours Per Day (ICD-10-PCS; 2017-11-19)
DX: A41.9 Sepsis, unspecified organism (principal); E11.10 Type 2 diabetes mellitus with ketoacidosis without coma; R65.21 Severe sepsis with septic shock; J18.9 Pneumonia, unspecified organism; J96.01 Acute respiratory failure with hypoxia; N17.0 Acute kidney failure with tubular necrosis; G93.41 Metabolic encephalopathy; E87.0 Hyperosmolality and hypernatremia; I46.9 Cardiac arrest, cause unspecified; I10 Essential (primary) hypertension; E03.9 Hypothyroidism, unspecified; F17.200 Nicotine dependence, unspecified, uncomplicated; E87.5 Hyperkalemia; D69.6 Thrombocytopenia, unspecified; S06.890A Other specified intracranial injury without loss of consciousness, initial encounter; Z82.49 Family history of ischemic heart disease and other diseases of the circulatory system; Z83.3 Family history of diabetes mellitus; Z23 Encounter for immunization
CPT/HCPCS: 36415; 36600; 70450; 70486; 70490; 71045; 74018; 74177; 76536; 80048; 80053; 80061; 80074; 80202; 80307; 80320; 81001; 82140; 82550; 82553; 82803; 82805; 82962; 83735; 84100; 84443; 84484; 85007; 85025; 85027; 85610; 86022; 86140; 86403; 87040; 87070; 87075; 87086; 87116; 87186; 87205; 89051; 90732; 93005; 93010; 93306; 93970; 94002; 94003; 94760; 95819; 96361; 96365; 96366; 96375; G0480; J0171; J0282; J0456; J0461; J0610; J0690; J1450; J1630; J1644; J1650; J1815; J2060; J2250; J2370; J2540; J2543; J2920; J2930; J3010; J3370; J3475; J3480; J7030; J7040; J7050; J7060; J7070; J7120; P9045; Q9967